=== PATIENT | male | born 1950 | race Caucasian/White ===

== ENCOUNTER 2018-09-05 20:13 | Emergency (ER) | payer MEDICARE, SELFPAY ==
[2018-09-05] VITALS (7 sets, daily range): BP systolic 180–197; BP diastolic 94–124; PULSE 100–109; RESP 14–22; TEMP 37.2; O2SAT 93–958; BMI 32.8
--- NOTE | 2018-09-05 20:17 | EKG12_ITS ---
Test Reason : Blood Pressure : / mmHG Vent. Rate : 103 BPM Atrial Rate : 103 BPM P-R Int : 202 ms QRS Dur : 094 ms QT Int : 348 ms P-R-T Axes : 038 -39 029 degrees QTc Int : 455 ms Sinus tachycardia Possible Left atrial enlargement Left axis deviation Poor R wave progression Left ventricular hypertrophy Abnormal ECG Confirmed by AROLDO BECKWITH, VIKTORIA ([id number]), image editor FLAKO JACKSON ([id number]) on 09/07/2018 1:55:09 PM Referred By: MARIA DE JESUS Confirmed By:VIKTORIA KENDRICK MD
--- NOTE | 2018-09-05 20:17 | CT_ITS ---
STUDY: CT BRAIN WITHOUT CONTRAST REASON FOR EXAM: Male, 68 years old. Right facial droop and weakness RADIATION DOSAGE (If Supplied By Facility): CTDIvol = ( 44.99 ) mGy, DLP = ( 863.60 ) mGycm TECHNIQUE: Transaxial CT imaging of the brain was performed without administration of intravenous contrast material. Individualized dose optimization techniques were used for this CT. COMPARISON: None. FINDINGS: Normal soft tissue structures. Normal calvarium. Calcification of cavernous carotids. Mild atrophy and periventricular white matter ischemic changes.. Small old lacunar infarct in right basal ganglia.. Normal brainstem. Normal cerebellum. There is no intracranial hemorrhage. There are no findings of an acute ischemic infarction. There is minor mucosal thickening of the maxillary ethmoid and sphenoid sinuses CT/Brain/Head without Contrast IMPRESSION: Mild atrophy and periventricular white matter ischemic changes with old right lacunar infarct. No evidence for acute bleed. If concern for acute infarct MRI recommended. N.B. : The above information has been verbally conveyed by Kolton Tellez MD to Andres Garcia MD, on 09/05/2018 20:42:24 (ET). Electronically Signed: Kolton Tellez MD at 20:42 EST , Service support ,
--- NOTE | 2018-09-05 20:22 | ED.VISSUMM ---
- ER Visit Summary Date of Service: 09/05/18 Chief Complaint: Right-sided weakness History of Present Illness: The patient is a 68 M who presents to the emergency department with right-sided weakness. The patient was found by his . He had fallen in his bathroom. He had right-sided weakness, slurred speech, right-sided facial droop. [facility] normal at 1500. The patient has no significant medical history. He takes no daily medications. On squad arrival, his blood pressure was markedly hypertensive at 230/110. He denies any trauma. He has no history of prior stroke. Physical Examination: On arrival, the patient's NIH is 6. He received one-point visual palsy, 3 points for right arm, 1.4 right leg, and one point for dysarthria. He is hypertensive and tachycardic. He answers questions appropriately. He follows commands. There is no visual field deficit. Head is normal cephalic, atraumatic. Heart is regular rate and rhythm. Lungs are clear. Abdomen is soft. Test Results: [] Emergency Department Course and Treatment: The patient presents with strokelike symptoms. Unfortunately, he is outside the window for TPA. I did discuss his presentation with Dr. Ospina. The patient underwent head CT which did not show acute hemorrhagic abnormality. He did have CTA is done of the head and neck. CTA of the neck was unremarkable. CTA of the head however does show significantly diminished blood flow in the left MCA corresponding to his symptoms. After discussion with family, it was felt the patient would best be served at a tertiary facility for evaluation for intra-arterial TPA versus thrombus removal. The patient did request transfer. The patient was discussed with Dr. Carnes, neurology fellow at [facility]. Unfortunately, air transport is not available. The patient will be transferred by ground immediately to [facility] for neurology evaluation. Treatment Plan: [] Disposition: Transfer Impression: 1. Acute left MCA occlusion This note was generated with [employer] dictation software. It may contain incorrect words, spelling, and punctuation that were not noted in review of the chart prior to signing ED Disposition - Plan for ED Patient: Disposition: [facility] - Main Chief Complaint: Neuro S/Sx Referrals: Care Physician,No Primary [Primary Care Provider] -
--- NOTE | 2018-09-05 20:27 | CT_ITS ---
STUDY: CTA OF THE BRAIN REASON FOR EXAM: Male, 68 years old. Right side facial droop and weakness. RADIATION DOSAGE (If Supplied By Facility): CTDIvol = ( 18.48 ) mGy, DLP = ( 860.56 ) mGycm TECHNIQUE: CT angiography was performed with a multi-detector CT scanner. Data acquisition was obtained from the skull base through the vertex following intravenous administration of ml of . MIP images were reconstructed from the axial data set. Post-processing of the angiographic images was performed, with multiplanar reformation and 3D reconstruction. Individualized dose optimization techniques were used for this CT. COMPARISON: None. FINDINGS: Normal bilateral petrous carotid arteries. There is calcified plaque formation of the right cavernous carotid artery, without a cross-sectional luminal stenosis. There is calcified plaque formation of the left cavernous carotid artery, without a cross-sectional luminal stenosis. Normal right A1 segments of the anterior cerebral artery. Normal left A1 segments of the anterior cerebral artery. Normal intact anterior communicating artery (ACOM). Normal bilateral A2 segments of the anterior cerebral arteries. Normal right M1 and M2 segments of the middle cerebral arteries, with a normal M1 bifurcation. Normal M1 segment of the left middle cerebral artery with normal bifurcation. There is a subtle decrease in flow of distal branches of the left middle cerebral artery. There is a persistent origin of the right posterior cerebral artery with absence of the P1 segment of the right [employer]). There is a persistent origin of the left posterior cerebral artery with absence of the P1 segment of the left [employer]). There is a right dominant vertebral artery. Normal basilar artery with a normal basilar bifurcation. The visualized bilateral superior cerebellar (SCA) arteries are normal. P1 segments are absent consistent with bilateral origin of the posterior cerebral arteries. Normal bilateral P2 and visualized P3 segments of the posterior cerebral arteries. There is no demonstrated aneurysm of the picayune of Lilly. CT/CTA Head W/WO Contrast IMPRESSION: Mild decrease in flow in the left MCA circulation without demonstrated stenosis or occlusion. Variant anatomy as noted above. Dr. Dumont discussed the findings with Dr. Garcia at 9:05 PM. N.B. : The above information has been verbally conveyed by Miri Dumont MD to ORION PAIGE MD, on 09/05/2018 21:11:08 (ET). Electronically Signed: Miri Dumont MD at 21:12 EST Tel , Service support ,
--- NOTE | 2018-09-05 20:27 | CT_ITS ---
STUDY: CTA NECK WITH AND WITHOUT CONTRAST REASON FOR EXAM: Male, 68 years old. Right side facial droop and weakness. RADIATION DOSAGE (If Supplied By Facility): CTDIvol = ( 18.48 ) mGy, DLP = ( 860.56 ) mGycm TECHNIQUE: CT angiography with multi-detector data acquisition was performed from the aortic arch to the skull base prior to and after intravenous administration of 100ML ml of Isovue 370 contrast. MIP images were reconstructed from the axial data set. Post-processing of the angiographic images was performed, with multiplanar reformation and 3D reconstruction. Individualized dose optimization techniques were used for this CT. COMPARISON: None. FINDINGS: AORTIC ARCH: Normal visualized aortic arch. Normal origins of the brachiocephalic, left common carotid, and left subclavian arteries. RIGHT CAROTID ARTERIES: Normal right common carotid artery (CCA). There is mild atherosclerotic plaque formation without narrowing of the right carotid bulb. Normal origin of the right internal carotid (ICA) artery without a hemodynamically significant stenosis. Normal visualized cervical portion of the right internal carotid artery. Normal origin of the right external carotid artery (ECA). LEFT CAROTID ARTERIES: Normal left common carotid artery (CCA). There is moderate atherosclerotic plaque formation without narrowing of the carotid bulb. Normal origin of the left internal carotid (ICA) artery without a hemodynamically significant stenosis. Normal visualized cervical portion of the left internal carotid artery. Normal origin of the left external carotid artery (ECA). VERTEBRAL ARTERIES: There is a right dominant vertebral artery. There is no vertebral dissection, stenosis, or occlusion. CT/CTA Neck W/WO Contrast IMPRESSION: No dissection, stenosis, or occlusion. Right dominant vertebral artery, normal variant. N.B. : The above information has been verbally conveyed by Miri Dumont MD to Andres Garcia MD, AA, on 09/05/2018 21:16:58 (ET). Electronically Signed: Miri Dumont MD at 21:15 EST Tel , Service support ,
--- NOTE | 2018-09-05 20:30 | RAD_ITS ---
STUDY: X-RAY CHEST REASON FOR EXAM: Male, 68 years old. Stroke TECHNIQUE: AP portable COMPARISON: None. FINDINGS: The lungs are clear and expanded. There is no demonstrated pleural abnormality. Normal size heart. Normal mediastinum and teresita. Normal visualized pulmonary arteries. Tortuous aortic arch and descending thoracic aorta. Dorsal spine demonstrates spondylosis Normal visualized ribs, clavicles, and shoulders. There is no demonstrated abnormality of the visualized soft tissue structures of the upper abdomen. RAD/Chest 1 View IMPRESSION: No acute cardiopulmonary pathology Electronically Signed: Kolton Tellez MD at 21:07 EST , Service support ,
[2018-09-05 20:37] LABS: Absolute Lymphocyte Count 0.93 X10^3/ul (0.83-4.51); Absolute Neutrophil Count 13.4 X10^3/uL (2.0-7.7); Basophil# 0.03 X10^3/uL; Basophil% 0.2 % (0-1); Eosinophil# 0.01 X10^3/uL; Eosinophils% 0.1 % (0-5); Hematocrit 43.3 % (40-54); Hemoglobin 14.6 g/dl (13.0-16.5); Lymphocyte # 0.93 X10^3/ul (4.0); Lymphocyte % 6.2 % (19-41); Mean Corp Hgb Conc 33.7 g/gl (32-36); Mean Corpuscular Hgb 27.1 pg (27.0-32.0); Mean Corpuscular Volume 80.3 fL (80-94); Monocyte# 0.66 X10^3/uL; Monocyte% 4.4 % (0-10); Neutrophil # 13.43 X10^3/uL (2.7-7.7); Neutrophil % 88.9 % (47-70); Platelet Count 213 K/mm3 (150-450); RBC Distribution Width CV 14.2 % (11.6-14.6); RBC Distribution Width SD 41.9 fl (35.1-43.9); Red Blood Count 5.39 M/mm3 (4.6-6.2); White Blood Count 15.1 K/mm3 (4.4-11.0)
[2018-09-05 20:38] LABS: POSITIVE COUNT NO; POSITIVE DIFFERENTIAL NO; POSITIVE MORPHOLOGY NO
[2018-09-05 20:39] LABS: Prothrombin Time (Protime)PT. 13.6 SECONDS (11.7-14.9)
[2018-09-05 20:49] LABS: Anion Gap 11 (5-15); BUN 15 mg/dL (7-18); BUN/Creat Ratio 18.7 RATIO (10-20); Calcium,Total 8.9 mg/dL (8.5-10.1); Chloride 106 mmol/L (98-107); EST Glomerular Filtration Rate 101 mL/min (>60); Est Glom Filt Rate - Afr Amer 123 mL/min (>60); Estimated Creatinine Clearance 89.98 ml/min; Glucose 283 mg/dL (74-106); Potassium 3.8 mmol/L (3.5-5.1); Sodium Level 139 mmol/L (136-145)
[2018-09-07 07:16] LABS: Bedside Glucose 268 mg/dL (70-110)
== END 2018-09-05 21:46 | disposition short-term general hospital (02) ==
PROVIDERS: Emergency Provider Emergency Medicine
DX: I66.02 Occlusion and stenosis of left middle cerebral artery (principal); Z72.0 Tobacco use
CPT/HCPCS: 70450; 70496; 70498; 71045; 80048; 82962; 84484; 85025; 85610; 85730; 93005; 99285; J7030; A4216

== ENCOUNTER 2018-09-08 15:56 | Inpatient (IN) | payer MEDICARE, SELFPAY ==
[2018-09-05 20:23] VITALS: BMI 32.8
[2018-09-08 16:39] VITALS: BP 154/90; PULSE 80; RESP 16; TEMP 36.9; O2SAT 91; BMI 32.1
[2018-09-08 18:11] LABS: Bedside Glucose 194 mg/dL (70-110)
--- NOTE | 2018-09-08 18:53 | PCM.CONS.GEN ---
Problem List (1) Left acute arterial ischemic stroke, MCA (middle cerebral artery) Status: Chronic (2) HTN (hypertension) Status: Chronic Qualifiers: Hypertension type: essential hypertension Qualified Code(s): I10 - Essential (primary) hypertension (3) HLD (hyperlipidemia) Status: Chronic Qualifiers: Hyperlipidemia type: unspecified Qualified Code(s): E78.5 - Hyperlipidemia, unspecified (4) Diabetes mellitus, type II Status: Acute Qualifiers: Diabetes mellitus manuscripts curator insulin use: without manuscripts curator use Diabetes mellitus complication status: with unspecified complications Qualified Code(s): E11.8 - Type 2 diabetes mellitus with unspecified complications (5) Obesity (BMI 30.0-34.9) Status: Chronic Reason for Consult Date of Consultation: 09/08/18 Reason for Consultation: Medical management History of Present Illness: The patient is a 68 y/o M w/ PMHx: Obesity, Undiagnosed HTN, HLD, Diabetes mellitus until 09/05/17 onset right sided weakness with associated slurred speech, right sided facial droop in addition to right upper and lower extremity decreased sensation noted to be outside of the TPA window upon ED arrival however CTA head w/ MIP acutely diminished blood flow to the left MCA corresponding to his symptoms therefore patient was transferred to a tertiary facility for evaluation for intra-arterial TPA versus thrombus removal however decision was to continue with only medical management and patient now presents to the [facility] for ongoing PT, OT, Speech Therapies. He does note that his sensation and right-sided weakness have been improving. He does have a hoarse voice and notes that this is worse when he is fatigued. At out lying facility, [facility] he was taking a regular diet. Patient was initiated on treatment for hypertension, hyperlipidemia as well as diabetes with noted hemoglobin A1c of 8.4%. Past Medical History Past Medical History (Chronic Problems): Chronic Problems Left acute arterial ischemic stroke, MCA (middle cerebral artery) (Chronic) HTN (hypertension) (Chronic) HLD (hyperlipidemia) (Chronic) Obesity (BMI 30.0-34.9) (Chronic) Allergies hornet venom Allergy (Verified 09/08/18 18:16) Unknown Home Medications: Ambulatory Orders Medication Instructions Recorded Acetaminophen [Tylenol] 650 mg PO Q8H PRN PRN 09/08/18 Aspirin [Aspir 81] 81 mg PO DAILY 09/08/18 Atorvastatin Calcium 80 mg PO QHS 09/08/18 Clopidogrel Bisulfate [Plavix] 75 mg PO DAILY 09/08/18 Enoxaparin Sodium [Lovenox] 40 mg SQ DAILY 09/08/18 Insulin Lispro [Humalog KwikPen] See Protocol SQ ACHS 09/08/18 Lisinopril 20 mg PO DAILY 09/08/18 Metformin HCl 500 mg PO BID 09/08/18 Multivitamin with Minerals 1 each PO DAILY 09/08/18 [Multiple Vitamin] Surgical History: - - Patient denies any surgical history. Psychiatric History: No pertinent psych hx Lives: Spouse/ Significant Other Smoking Status: Never smoker Tobacco Use: Non-smoker Alcohol: None Drugs: None - *Family History Maternal History Items: - - Patient's mother at age 76 with history of cancer. Paternal History Items: - - Patient's father at age 66 with myocardial infarction, current history of diabetes mellitus. Review of Systems Constitutional: Reports: Malaise, Weakness, Fatigue. Denies: Chills, Fever, Weight Change HEENT: Denies: Head Aches, Sinus Congestion, Sinus Drainage Cardiovascular: Denies: Chest Pain, Palpitations Respiratory: Denies: Cough, Shortness of breath at rest, Sputum production Gastrointestinal: Denies: Abdominal Pain, Nausea, Vomiting Genitourinary: Denies: Dysuria Musculoskeletal: Denies: Joint Pain, Joint Tenderness Skin: Denies: Rash, Wounds Neurological: Reports: Balance problems, Change in Speech, Slurred speech, Focal weakness, Incoordination, Numbness. Denies: Tingling Psychiatric: Denies: Anxiety, Depression, Homicidal Ideations, Suicidal Ideations Hematologic/ Lymphatic: Denies: Easy Bruising, Easy Bleeding Patient Problems: Active and Suspected Problems Diabetes mellitus, type II (Acute) Subjective: Seated upright in the bed, eating his meal, no acute distress. Objective: Physical Examination: General: awake, alert, oriented x 3 and cooperative, seated upright in bed in no apparent distress. Skin: normal color, turgor, no icterus, cyanosis. HEENT: AT/NC, EOMI, PERRLA, minimal right sided facial droop, MMM, no carotid bruits or JVD noted, voice mildly hoarse. Lungs: CTA bilaterally, moderate effort, mild decrease BL bases, no rales, ronchi or wheezing. Heart: Regular rate and rhythm; no gallop, rub audible. Abdomen: soft, obese, NTTP, ND, normal BS, no HSM. Extremities: no cyanosis, clubbing, or edema. Neurological: patient awake, alert, oriented x 3; cognitive function intact; pupils equally reactive to light and accomodation; cranial nerves II-XII grossly normal aside mild R sided facial droop, corrective, hoarse voice, moving all 4 extremities but limited RUE 2/5, RLE 3/5, intact L sided, sensation decreased R sided. Psychiatric: affect appears normal, no acute evidence of depressive or anxiety feelings. - Physical Exam Vital Signs Temp Pulse Resp BP Pulse Ox 98.5 F 80 16 154/90 H 91 09/08/18 16:39 09/08/18 16:39 09/08/18 16:39 09/08/18 16:39 09/08/18 16:39 Oxygen Delivery Method Room Air Weight: 223 lb 12.307 oz Body Mass Index (BMI) 32.1 Finger Stick Blood Glucose 268 POC Glucose 09/08/18 18:04 POC Glucose 194 H Assessment/Plan All Active Problems Diabetes mellitus, type II (Acute) The patient is a 68 y/o M w/ PMHx: Obesity, Undiagnosed HTN, HLD, Diabetes mellitus until 09/05/17 onset right sided weakness with associated slurred speech, right sided facial droop in addition to right upper and lower extremity decreased sensation noted to be outside of the TPA window upon ED arrival however CTA head w/ MIP acutely diminished blood flow to the left MCA corresponding to his symptoms therefore patient was transferred to a tertiary facility for evaluation for intra-arterial TPA versus thrombus removal however decision was to continue with only medical management and patient now presents to the [facility] for ongoing PT, OT, Speech Therapies. (1) Recent Acute L MCA CVA: 09/05/17 onset R sided weakness, decreased sensation, facial droop, out of TPA window, CTA neck unremarkable, CTA head w/ minimal flow to the left MCA corresponding with the symptoms therefore transferred to tertiary facility, [facility] for possible intervention however this was deferred for medical management. Admitted to acute rehab debilitation physician, continue on aspirin, Plavix dual therapy for at least 21 days, BP regimen, new diabetic regimen, fall precautions, PT, OT and speech therapies. (2) Diabetes mellitus type II: Continue new home oral regimen, recence HgbA1c 8.4%, ADA diet, accu checks w/ ISS, nutrition consultation for education and teaching recommended. (3) Hypertension: Continue recently initiated lisinopril, may add or increase this regimen to maintain a goal. (4) Hyperlipidemia: Continue recently initiated statin therapy. (5) Obesity: Weight loss and lifestyle changes encouraged. (6) DVT Prophylaxis: Recommend sadaf SEBASTIAN. Code Visit Inpatient E&M: [id number] [facility] L[facility]
--- NOTE | 2018-09-08 18:57 | CON.PCM_ITS ---
Problem List (1) Left acute arterial ischemic stroke, MCA (middle cerebral artery) Status: Chronic (2) HTN (hypertension) Status: Chronic Qualifiers: Hypertension type: essential hypertension Qualified Code(s): I10 - Essential (primary) hypertension (3) HLD (hyperlipidemia) Status: Chronic Qualifiers: Hyperlipidemia type: unspecified Qualified Code(s): E78.5 - Hyperlipidemia, unspecified (4) Diabetes mellitus, type II Status: Acute Qualifiers: Diabetes mellitus intermediate project manager insulin use: without intermediate project manager use Diabetes mellitus complication status: with unspecified complications Qualified Code(s): E11.8 - Type 2 diabetes mellitus with unspecified complications (5) Obesity (BMI 30.0-34.9) Status: Chronic Reason for Consult Date of Consultation: 09/08/18 Reason for Consultation: Medical management History of Present Illness: The patient is a 68 y/o M w/ PMHx: Obesity, Undiagnosed HTN, HLD, Diabetes mellitus until 09/05/17 onset right sided weakness with associated slurred speech, right sided facial droop in addition to right upper and lower extremity decreased sensation noted to be outside of the TPA window upon ED arrival however CTA head w/ MIP acutely diminished blood flow to the left MCA corresponding to his symptoms therefore patient was transferred to a tertiary facility for evaluation for intra-arterial TPA versus thrombus removal however decision was to continue with only medical management and patient now presents to the [facility] for ongoing PT, OT, Speech Therapies. He does note that his sensation and right-sided weakness have been improving. He does have a hoarse voice and notes that this is worse when he is fatigued. At out lying facility, [facility] he was taking a regular diet. Patient was initiated on treatment for hypertension, hyperlipidemia as well as diabetes with noted hemoglobin A1c of 8.4%. Past Medical History Past Medical History (Chronic Problems): Chronic Problems Left acute arterial ischemic stroke, MCA (middle cerebral artery) (Chronic) HTN (hypertension) (Chronic) HLD (hyperlipidemia) (Chronic) Obesity (BMI 30.0-34.9) (Chronic) Allergies hornet venom Allergy (Verified 09/08/18 18:16) Unknown Home Medications: Ambulatory Orders Medication Instructions Recorded Acetaminophen [Tylenol] 650 mg PO Q8H PRN PRN 09/08/18 Aspirin [Aspir 81] 81 mg PO DAILY 09/08/18 Atorvastatin Calcium 80 mg PO QHS 09/08/18 Clopidogrel Bisulfate [Plavix] 75 mg PO DAILY 09/08/18 Enoxaparin Sodium [Lovenox] 40 mg SQ DAILY 09/08/18 Insulin Lispro [Humalog KwikPen] See Protocol SQ ACHS 09/08/18 Lisinopril 20 mg PO DAILY 09/08/18 Metformin HCl 500 mg PO BID 09/08/18 Multivitamin with Minerals 1 each PO DAILY 09/08/18 [Multiple Vitamin] Surgical History: - - Patient denies any surgical history. Psychiatric History: No pertinent psych hx Lives: Spouse/ Significant Other Smoking Status: Never smoker Tobacco Use: Non-smoker Alcohol: None Drugs: None - *Family History Maternal History Items: - - Patient's mother at age 76 with history of cancer. Paternal History Items: - - Patient's father at age 66 with myocardial infarction, current history of diabetes mellitus. Review of Systems Constitutional: Reports: Malaise, Weakness, Fatigue. Denies: Chills, Fever, Weight Change HEENT: Denies: Head Aches, Sinus Congestion, Sinus Drainage Cardiovascular: Denies: Chest Pain, Palpitations Respiratory: Denies: Cough, Shortness of breath at rest, Sputum production Gastrointestinal: Denies: Abdominal Pain, Nausea, Vomiting Genitourinary: Denies: Dysuria Musculoskeletal: Denies: Joint Pain, Joint Tenderness Skin: Denies: Rash, Wounds Neurological: Reports: Balance problems, Change in Speech, Slurred speech, Focal weakness, Incoordination, Numbness. Denies: Tingling Psychiatric: Denies: Anxiety, Depression, Homicidal Ideations, Suicidal Ideations Hematologic/ Lymphatic: Denies: Easy Bruising, Easy Bleeding Patient Problems: Active and Suspected Problems Diabetes mellitus, type II (Acute) Subjective: Seated upright in the bed, eating his meal, no acute distress. Objective: Physical Examination: General: awake, alert, oriented x 3 and cooperative, seated upright in bed in no apparent distress. Skin: normal color, turgor, no icterus, cyanosis. HEENT: AT/NC, EOMI, PERRLA, minimal right sided facial droop, MMM, no carotid bruits or JVD noted, voice mildly hoarse. Lungs: CTA bilaterally, moderate effort, mild decrease BL bases, no rales, ronchi or wheezing. Heart: Regular rate and rhythm; no gallop, rub audible. Abdomen: soft, obese, NTTP, ND, normal BS, no HSM. Extremities: no cyanosis, clubbing, or edema. Neurological: patient awake, alert, oriented x 3; cognitive function intact; pupils equally reactive to light and accomodation; cranial nerves II-XII grossly normal aside mild R sided facial droop, corrective, hoarse voice, moving all 4 extremities but limited RUE 2/5, RLE 3/5, intact L sided, sensation decreased R sided. Psychiatric: affect appears normal, no acute evidence of depressive or anxiety feelings. - Physical Exam Vital Signs Temp Pulse Resp BP Pulse Ox 98.5 F 80 16 154/90 H 91 09/08/18 16:39 09/08/18 16:39 09/08/18 16:39 09/08/18 16:39 09/08/18 16:39 Oxygen Delivery Method Room Air Weight: 223 lb 12.307 oz Body Mass Index (BMI) 32.1 Finger Stick Blood Glucose 268 POC Glucose 09/08/18 18:04 POC Glucose 194 H Assessment/Plan All Active Problems Diabetes mellitus, type II (Acute) The patient is a 68 y/o M w/ PMHx: Obesity, Undiagnosed HTN, HLD, Diabetes mellitus until 09/05/17 onset right sided weakness with associated slurred speech, right sided facial droop in addition to right upper and lower extremity decreased sensation noted to be outside of the TPA window upon ED arrival however CTA head w/ MIP acutely diminished blood flow to the left MCA corresponding to his symptoms therefore patient was transferred to a tertiary facility for evaluation for intra-arterial TPA versus thrombus removal however decision was to continue with only medical management and patient now presents to the [facility] for ongoing PT, OT, Speech Therapies. (1) Recent Acute L MCA CVA: 09/05/17 onset R sided weakness, decreased sensation, facial droop, out of TPA window, CTA neck unremarkable, CTA head w/ minimal flow to the left MCA corresponding with the symptoms therefore transferred to tertiary facility, [facility] for possible intervention however this was deferred for medical management. Admitted to acute rehab debilitation physician, continue on aspirin, Plavix dual therapy for at least 21 days, BP regimen, new diabetic regimen, fall precautions, PT, OT and speech therapies. (2) Diabetes mellitus type II: Continue new home oral regimen, recence HgbA1c 8.4%, ADA diet, accu checks w/ ISS, nutrition consultation for education and teaching recommended. (3) Hypertension: Continue recently initiated lisinopril, may add or increase this regimen to maintain a goal. (4) Hyperlipidemia: Continue recently initiated statin therapy. (5) Obesity: Weight loss and lifestyle changes encouraged. (6) DVT Prophylaxis: Recommend sadaf SEBASTIAN. Code Visit Inpatient E&M: [id number] [facility] L3
[2018-09-08 20:33] VITALS: BP 130/73; PULSE 92; RESP 18; TEMP 36.8; O2SAT 92
--- NOTE | 2018-09-08 20:38 | NURSING ---
O2 applied at 2L for hs. Sats 90-92% sitting in chair. With O2 sats now 94%
[2018-09-08] MEDS: Atorvastatin Calcium 80 MG Tablet PO (22:01)
[2018-09-08] MEDS: Senna/Docusate Sodium 1 Tablet 2 TABLET PO (22:01)
[2018-09-08] MEDS: Insulin Lispro 100 UNIT/ML INSULN.PEN SC (23:14)
[2018-09-08 23:31] LABS: Bedside Glucose 220 mg/dL (70-110)
[2018-09-08 23:52] VITALS: BMI 32.1
[2018-09-09 01:02] VITALS: BMI 32.1
[2018-09-09] MEDS: Enoxaparin 40 MG/0.4 ML Syringe SC (06:27)
[2018-09-09 07:10] LABS: Bedside Glucose 167 mg/dL (70-110)
[2018-09-09 07:45] VITALS: BP 150/80; PULSE 79; RESP 18; TEMP 36.7; O2SAT 94
[2018-09-09 07:50] LABS: Absolute Lymphocyte Count 1.68 X10^3/ul (0.83-4.51); Absolute Neutrophil Count 5.1 X10^3/uL (2.0-7.7); Basophil# 0.02 X10^3/uL; Basophil% 0.2 % (0-1); Eosinophil# 0.35 X10^3/uL; Eosinophils% 4.3 % (0-5); Hematocrit 43.6 % (40-54); Hemoglobin 14.3 g/dl (13.0-16.5); Lymphocyte # 1.68 X10^3/ul (4.0); Lymphocyte % 20.9 % (19-41); Mean Corp Hgb Conc 32.8 g/gl (32-36); Mean Corpuscular Hgb 26.8 pg (27.0-32.0); Mean Corpuscular Volume 81.6 fL (80-94); Mean Platelet Vol. 9.6 fl (6.2-12.0); Monocyte# 0.94 X10^3/uL; Monocyte% 11.7 % (0-10); Neutrophil # 5.05 X10^3/uL (2.7-7.7); Neutrophil % 62.8 % (47-70); POSITIVE COUNT NO; POSITIVE DIFFERENTIAL NO; POSITIVE MORPHOLOGY NO; Platelet Count 219 K/mm3 (150-450); RBC Distribution Width CV 14.3 % (11.6-14.6); RBC Distribution Width SD 42.6 fl (35.1-43.9); Red Blood Count 5.34 M/mm3 (4.6-6.2); White Blood Count 8.1 K/mm3 (4.4-11.0)
[2018-09-09 08:01] LABS: ALB/GLOB Ratio 0.7 RATIO (0.9-2.4); AST(SGOT) 20 U/L (15-37); Alanine Aminotransfer ALT/SGPT 24 U/L (16-61); Alkaline Phosphatase 72 U/L (45-117); Anion Gap 10 (5-15); BUN 21 mg/dL (7-18); BUN/Creat Ratio 31.8 RATIO (10-20); Calcium,Total 8.5 mg/dL (8.5-10.1); Chloride 106 mmol/L (98-107); Creatinine, Serum 0.66 mg/dL (0.70-1.30); EST Glomerular Filtration Rate 127 mL/min (>60); Est Glom Filt Rate - Afr Amer 154 mL/min (>60); Estimated Creatinine Clearance 71.99 ml/min; Globulin 4.3 g/dL (2.2-4.2); Glucose 172 mg/dL (74-106); Potassium 3.6 mmol/L (3.5-5.1); Protein, Total 7.3 g/dL (6.4-8.2); Sodium Level 141 mmol/L (136-145)
--- NOTE | 2018-09-09 08:31 | CPS ---
started by nursing
[2018-09-09] MEDS: Lisinopril 20 MG Tablet PO (09:21)
[2018-09-09] MEDS: Insulin Lispro 100 UNIT/ML INSULN.PEN SC ×4 (09:21→23:02)
[2018-09-09] MEDS: Multivitamins,Ther W-Minerals Tablet 1 TABLET PO (09:22)
[2018-09-09] MEDS: Senna/Docusate Sodium 1 Tablet 2 TABLET PO (09:22)
[2018-09-09] MEDS: Clopidogrel Bisulfate 75 MG Tablet PO (09:22)
[2018-09-09] MEDS: Aspirin E.C. 81 MG Tablet PO (09:22)
[2018-09-09 11:36] LABS: Bedside Glucose 230 mg/dL (70-110)
[2018-09-09 15:57] VITALS: BMI 32.1
[2018-09-09 17:30] LABS: Bedside Glucose 211 mg/dL (70-110)
[2018-09-09 20:46] VITALS: BP 145/78; PULSE 84; RESP 16; TEMP 36.3; O2SAT 97
[2018-09-09 21:21] LABS: Bedside Glucose 240 mg/dL (70-110)
[2018-09-09] MEDS: Atorvastatin Calcium 80 MG Tablet PO (23:02)
[2018-09-09] MEDS: Menthol/Lanolin/Calamine/Znox 113 GM Tube 1 APPLIC TOPICAL (23:03)
[2018-09-09 23:06] LABS: Bedside Glucose 214 mg/dL (70-110)
[2018-09-10 01:33] VITALS: BMI 32.1
[2018-09-10] MEDS: Enoxaparin 40 MG/0.4 ML Syringe SC (06:21)
[2018-09-10 06:34] VITALS: O2SAT 96
[2018-09-10 07:06] LABS: Bedside Glucose 168 mg/dL (70-110)
[2018-09-10 07:23] VITALS: BP 138/76; PULSE 79; RESP 18; TEMP 36.8; O2SAT 96
[2018-09-10] MEDS: Insulin Lispro 100 UNIT/ML INSULN.PEN SC ×3 (09:44→20:02)
[2018-09-10] MEDS: Clopidogrel Bisulfate 75 MG Tablet PO (09:45)
[2018-09-10] MEDS: Aspirin E.C. 81 MG Tablet PO (09:45)
[2018-09-10] MEDS: Multivitamins,Ther W-Minerals Tablet 1 TABLET PO (09:45)
[2018-09-10] MEDS: Lisinopril 20 MG Tablet PO (09:46)
[2018-09-10] MEDS: Menthol/Lanolin/Calamine/Znox 113 GM Tube 1 APPLIC TOPICAL ×2 (09:47→20:17)
--- NOTE | 2018-09-10 11:51 | PCM.HP.STD ---
History of Present Illness Date of Admission: 09/08/18 Chief Complaint: Right-sided weakness Mr. Sepulveda is a 68-year-old right-handed male with a history of hypertension, diabetes, hypercholesterolemia, who presented to [facility] on 09/05/18 with new right-sided weakness associated with dysarthria. He did not receive TPA due to time of onset, he was transferred to the [facility] because of a possible right MCA thrombus, however no intervention occurred other than supportive therapy. He is now transferred back to [facility] acute rehab unit for rehabilitation in order to restore his previous level of functional independence. He lives with his in a 1-1/2 story house. He says there is significant steps there. He is not a smoker, he does have new hypersomnia since his stroke, he does not have a history of snoring or hypersomnia previously. No other complaints. No GI or complaints. Denies pain. Past Medical History Past Medical History (Chronic Problems): Chronic Problems Left acute arterial ischemic stroke, MCA (middle cerebral artery) (Chronic) HTN (hypertension) (Chronic) HLD (hyperlipidemia) (Chronic) Obesity (BMI 30.0-34.9) (Chronic) Allergies hornet venom Allergy (Verified 09/08/18 18:16) Unknown Home Medications: Ambulatory Orders Medication Instructions Recorded Acetaminophen [Tylenol] 650 mg PO Q8H PRN PRN 09/08/18 Aspirin [Aspir 81] 81 mg PO DAILY 09/08/18 Atorvastatin Calcium 80 mg PO QHS 09/08/18 Clopidogrel Bisulfate [Plavix] 75 mg PO DAILY 09/08/18 Enoxaparin Sodium [Lovenox] 40 mg SQ DAILY 09/08/18 Insulin Lispro [Humalog KwikPen] See Protocol SQ ACHS 09/08/18 Lisinopril 20 mg PO DAILY 09/08/18 Metformin HCl 500 mg PO BID 09/08/18 Multivitamin with Minerals 1 each PO DAILY 09/08/18 [Multiple Vitamin] Surgical History: - - Patient denies any surgical history. Psychiatric History: No pertinent psych hx Lives: Spouse/ Significant Other Smoking Status: Never smoker Tobacco Use: Non-smoker Alcohol: None Drugs: None - *Family History Maternal History Items: - - Patient's mother at age 76 with history of cancer. Paternal History Items: - - Patient's father at age 66 with myocardial infarction, current history of diabetes mellitus. Review of Systems Constitutional: Denies: Anorexia, Chills, Fever, Night Sweats Eyes: Denies: Blurred vision, Double vision HEENT: Denies: Difficulty Hearing, Difficulty Swallowing Cardiovascular: Denies: Chest Pain Respiratory: Denies: Cough Gastrointestinal: Denies: Abdominal Pain Genitourinary: Denies: Dysuria, Frequency, Hematuria, Hesitancy Musculoskeletal: Denies: Arm Pain, Back Pain, Foot Pain, Hand Pain, Joint Pain Skin: Denies: Rash, Wounds Neurological: Reports: Change in Speech, Slurred speech, Focal weakness Psychiatric: Denies: Anxiety, Depression, Homicidal Ideations, Suicidal Ideations Endocrine: Denies: Change in Body Habitus Hematologic/ Lymphatic: Denies: Easy Bruising, Easy Bleeding VTE Information - Inpt Only VTE Present on Admission: Yes VTE Pharm Prophylaxis ordered?: Yes Patient Problems: Active and Suspected Problems Diabetes mellitus, type II (Acute) - Physical Exam General: Alert, Oriented x3, Cooperative, No apparent distress Lungs: Clear to auscultation Cardiovascular: Regular rate Abdomen: Bowel Sounds Present Extremities: No Calf Tenderness Neurological: - - He has dysarthria, a right central 7, right arm and right leg is 2/5. There is no sensory extinction. There does not appear to be any aphasia. There are no visual field deficits. Vital Signs Temp Pulse Resp BP Pulse Ox 36.8 C 79 18 138/76 H 96 09/10/18 07:23 09/10/18 07:23 09/10/18 07:23 09/10/18 07:23 09/10/18 07:23 Oxygen Flow Rate (L/min) 3 Oxygen Delivery Method Room Air Weight: 101.5 kg Body Mass Index (BMI) 32.1 Finger Stick Blood Glucose 268 Intake and Output for Last 24 Hours 09/08/18 09/09/18 09/10/18 23:59 23:59 23:59 Intake Total 1130 / 1130 120 / 120 Balance 1130 / 1130 120 / 120 POC Glucose 09/10/18 09/09/18 09/09/18 06:34 23:00 21:10 POC Glucose 168 H 214 H 240 H 09/09/18 17:16 POC Glucose 211 H Current Medications Generic Name Dose Route Start Last Admin Trade Name Freq PRN Reason Stop Dose Admin Acetaminophen 650 mg 09/08/18 18:27 Tylenol PO Q8H PRN PRN PAIN Aspirin 81 mg 09/09/18 08:00 09/10/18 09:45 Ecotrin PO 81 mg DAILY@0800 [facility] Administration Atorvastatin Calcium 80 mg 09/08/18 22:00 09/09/18 23:02 Lipitor PO 80 mg QHS HOWIE Administration Bisacodyl 10 mg 09/08/18 18:34 Dulcolax RECTAL .PRN X 1 PRN Constipation Calamine/Phenol 1 applic 09/09/18 22:00 09/10/18 09:47 Calmoseptine Ointment TOPICAL 1 applicatio BID [facility] Administration Protocol Clopidogrel Bisulfate 75 mg 09/09/18 10:00 09/10/18 09:45 Plavix PO 09/27/18 10:01 75 mg DAILY HOWIE Administration Enoxaparin Sodium 40 mg 09/09/18 06:00 09/10/18 06:21 Lovenox SC 40 mg DAILY@0600 [facility] Administration Insulin Human Lispro 0 unit 09/08/18 22:00 09/10/18 09:44 Humalog Kwikpen (Bkc) SC 1 u ACHS [facility] Administration Protocol Lisinopril 20 mg 09/09/18 10:00 09/10/18 09:46 Zestril PO 20 mg DAILY HOWIE Administration Magnesium Hydroxide 30 ml 09/08/18 18:34 Milk Of Magnesia PO .PRN X 1 PRN Constipation Metformin HCl 500 mg 09/09/18 08:00 09/10/18 09:45 Glucophage PO 500 mg BIDCM [facility] Administration Multivitamins/Minerals 1 tablet 09/09/18 08:00 09/10/18 09:45 Multivitamin With Minerals PO 1 tablet DAILY@0800 [facility] Administration Senna/Docusate Sodium 2 tablet 09/08/18 22:00 09/10/18 09:46 Senokot-S, Joy-Colace PO Not Given BID [facility] Assessment/Plan All Active Problems Diabetes mellitus, type II (Acute) 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 Goal of rehab is gnosticism of prior level of functional independence. Complicated by diabetes and hypertension. He has new hypersomnia but previous to his stroke he did not have hypersomnia. Plan: Physical therapy for gait and balance Occupational Therapy for ADLs Speech therapy Bowel protocol PRN analgesics PRN sleep aid Continue anti-glycemic agents and follow Continue antihypertensives and follow Statin therapy, Plavix, and aspirin
--- NOTE | 2018-09-10 11:55 | HP.PCM_ITS ---
History of Present Illness Date of Admission: 09/08/18 Chief Complaint: Right-sided weakness Mr. Sepulveda is a 68-year-old right-handed male with a history of hypertension, diabetes, hypercholesterolemia, who presented to [facility] on 09/05/18 with new right-sided weakness associated with dysarthria. He did not receive TPA due to time of onset, he was transferred to the [facility] because of a possible right MCA thrombus, however no intervention occurred other than supportive therapy. He is now transferred back to [facility] acute rehab unit for rehabilitation in order to restore his previous level of functional independence. He lives with his in a 1-1/2 story house. He says there is significant steps there. He is not a smoker, he does have new hypersomnia since his stroke, he does not have a history of snoring or hypersomnia previously. No other complaints. No GI or complaints. Denies pain. Past Medical History Past Medical History (Chronic Problems): Chronic Problems Left acute arterial ischemic stroke, MCA (middle cerebral artery) (Chronic) HTN (hypertension) (Chronic) HLD (hyperlipidemia) (Chronic) Obesity (BMI 30.0-34.9) (Chronic) Allergies hornet venom Allergy (Verified 09/08/18 18:16) Unknown Home Medications: Ambulatory Orders Medication Instructions Recorded Acetaminophen [Tylenol] 650 mg PO Q8H PRN PRN 09/08/18 Aspirin [Aspir 81] 81 mg PO DAILY 09/08/18 Atorvastatin Calcium 80 mg PO QHS 09/08/18 Clopidogrel Bisulfate [Plavix] 75 mg PO DAILY 09/08/18 Enoxaparin Sodium [Lovenox] 40 mg SQ DAILY 09/08/18 Insulin Lispro [Humalog KwikPen] See Protocol SQ ACHS 09/08/18 Lisinopril 20 mg PO DAILY 09/08/18 Metformin HCl 500 mg PO BID 09/08/18 Multivitamin with Minerals 1 each PO DAILY 09/08/18 [Multiple Vitamin] Surgical History: - - Patient denies any surgical history. Psychiatric History: No pertinent psych hx Lives: Spouse/ Significant Other Smoking Status: Never smoker Tobacco Use: Non-smoker Alcohol: None Drugs: None - *Family History Maternal History Items: - - Patient's mother at age 76 with history of cancer. Paternal History Items: - - Patient's father at age 66 with myocardial infarction, current history of diabetes mellitus. Review of Systems Constitutional: Denies: Anorexia, Chills, Fever, Night Sweats Eyes: Denies: Blurred vision, Double vision HEENT: Denies: Difficulty Hearing, Difficulty Swallowing Cardiovascular: Denies: Chest Pain Respiratory: Denies: Cough Gastrointestinal: Denies: Abdominal Pain Genitourinary: Denies: Dysuria, Frequency, Hematuria, Hesitancy Musculoskeletal: Denies: Arm Pain, Back Pain, Foot Pain, Hand Pain, Joint Pain Skin: Denies: Rash, Wounds Neurological: Reports: Change in Speech, Slurred speech, Focal weakness Psychiatric: Denies: Anxiety, Depression, Homicidal Ideations, Suicidal Ideations Endocrine: Denies: Change in Body Habitus Hematologic/ Lymphatic: Denies: Easy Bruising, Easy Bleeding VTE Information - Inpt Only VTE Present on Admission: Yes VTE Pharm Prophylaxis ordered?: Yes Patient Problems: Active and Suspected Problems Diabetes mellitus, type II (Acute) - Physical Exam General: Alert, Oriented x3, Cooperative, No apparent distress Lungs: Clear to auscultation Cardiovascular: Regular rate Abdomen: Bowel Sounds Present Extremities: No Calf Tenderness Neurological: - - He has dysarthria, a right central 7, right arm and right leg is 2/5. There is no sensory extinction. There does not appear to be any aphasia. There are no visual field deficits. Vital Signs Temp Pulse Resp BP Pulse Ox 36.8 C 79 18 138/76 H 96 09/10/18 07:23 09/10/18 07:23 09/10/18 07:23 09/10/18 07:23 09/10/18 07:23 Oxygen Flow Rate (L/min) 3 Oxygen Delivery Method Room Air Weight: 101.5 kg Body Mass Index (BMI) 32.1 Finger Stick Blood Glucose 268 Intake and Output for Last 24 Hours 09/08/18 09/09/18 09/10/18 23:59 23:59 23:59 Intake Total 1130 / 1130 120 / 120 Balance 1130 / 1130 120 / 120 POC Glucose 09/10/18 09/09/18 09/09/18 06:34 23:00 21:10 POC Glucose 168 H 214 H 240 H 09/09/18 17:16 POC Glucose 211 H Current Medications Generic Name Dose Route Start Last Admin Trade Name Freq PRN Reason Stop Dose Admin Acetaminophen 650 mg 09/08/18 18:27 Tylenol PO Q8H PRN PRN PAIN Aspirin 81 mg 09/09/18 08:00 09/10/18 09:45 Ecotrin PO 81 mg DAILY@0800 [facility] Administration Atorvastatin Calcium 80 mg 09/08/18 22:00 09/09/18 23:02 Lipitor PO 80 mg QHS HOWIE Administration Bisacodyl 10 mg 09/08/18 18:34 Dulcolax RECTAL .PRN X 1 PRN Constipation Calamine/Phenol 1 applic 09/09/18 22:00 09/10/18 09:47 Calmoseptine Ointment TOPICAL 1 applicatio BID [facility] Administration Protocol Clopidogrel Bisulfate 75 mg 09/09/18 10:00 09/10/18 09:45 Plavix PO 09/27/18 10:01 75 mg DAILY HOWIE Administration Enoxaparin Sodium 40 mg 09/09/18 06:00 09/10/18 06:21 Lovenox SC 40 mg DAILY@0600 [facility] Administration Insulin Human Lispro 0 unit 09/08/18 22:00 09/10/18 09:44 Humalog Kwikpen (Bkc) SC 1 u ACHS [facility] Administration Protocol Lisinopril 20 mg 09/09/18 10:00 09/10/18 09:46 Zestril PO 20 mg DAILY HOWIE Administration Magnesium Hydroxide 30 ml 09/08/18 18:34 Milk Of Magnesia PO .PRN X 1 PRN Constipation Metformin HCl 500 mg 09/09/18 08:00 09/10/18 09:45 Glucophage PO 500 mg BIDCM [facility] Administration Multivitamins/Minerals 1 tablet 09/09/18 08:00 09/10/18 09:45 Multivitamin With Minerals PO 1 tablet DAILY@0800 [facility] Administration Senna/Docusate Sodium 2 tablet 09/08/18 22:00 09/10/18 09:46 Senokot-S, Joy-Colace PO Not Given BID [facility] Assessment/Plan All Active Problems Diabetes mellitus, type II (Acute) 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 Goal of rehab is temple of prior level of functional independence. Complicated by diabetes and hypertension. He has new hypersomnia but previous to his stroke he did not have hypersomnia. Plan: Physical therapy for gait and balance Occupational Therapy for ADLs Speech therapy Bowel protocol PRN analgesics PRN sleep aid Continue anti-glycemic agents and follow Continue antihypertensives and follow Statin therapy, Plavix, and aspirin
--- NOTE | 2018-09-10 11:57 | REHABEVAL_ITS ---
Admission Information Status Changes from Prescreening?: No changes Identified Actual Problem List:: Cognitve Impr/Memory Loss, Alteration in Nutrition, Mobility Impaired, Self Care Deficit, Diabetes, Hyperglycemia, BP, Hypertension, Ineffect.D/C Plan r/t Psy Potential Problem List:: DVT, Bleeding, Infection, UTI, Aspiration, Falls, Skin Integrity, Depression Risk of Complications DVT: LMWH, ROMULO Hose, Sequential Compression Device Bleeding: Monitor Lab Values, Nursing to Teach Precautions for anti-coagulation therapy., Wound, if applicable, to be assessed every shift., Stroke patients assessed for lethargy or change in status. Infection: Clinical Staff to Monitor for S/S of infection:, S/S of infection include fever, redness, warmth, etc. Urinary Tract Infection: Monitor for frequency, burning, discomfort, or incontinence., Nursing will obtain urine sample for urinalysis and C&S when ordered. Aspiration: Clinical staff will monitor for coughing, drooling, congestion., Speech will evaluate swallowing and dsyphasia., Nursing will monitor patient swallowing during meals. Falls: Patient will be evaluated for Fall Precautions, Patient will be placed on Fall Precautions as indicated per protocol. Skin Breakdown: Nursing will assess skin daily using assessment tool., Nursing will place on Skin Breakdown Precautions as indicated. Pain: Clinical staff will assess patient's pain level per protocol., Medications will be given, if needed, and the pain level reassessed., Other methods: Massage, distraction, decrease stimulus, etc. used PRN. Plan of Care Patient requires physician specializing in physical medicine and rehab oversight to provide close medical supervision of rehab issues including: Pain Management, Sleep Problems, Bowel and Bladder, Medical and co-morbidity Management, DVT prophylaxis, Rehabilitation Leadership, Coordination of treatment team Patient needs Physical Therapy: For a minimum of 1 hour, At least 5 out of 7 days Patient needs Physical Therapy to improve:: Mobility, Mobility, Mobility, Strengthening, Transfers, Stretching, ROM, Endurance, Stairs, Gait, Balance Patient needs Occupational Therapy: For a minimum of 1 hour, At least 5 out of 7 days Patient needs Occupational Therapy to improve ADL's incl.: Eating, Grooming, Bathing, Dressing, Toileting, Toilet transfers, Community Reintegration, Higher functioning activities, Household tasks, Adaptive Equipment, Splinting, Other activities as determined Patient requires speech therapy: For a minimum of 1 hour, At least 5 out of 7 days Patient requires speech therapy for: Swallowing, Cognition, Language Skills, Compensatory Strategies Patient requires 24/ Rehabilitation Nursing for: Pain Issues, Identifying and preventing risk factors, Monitoring and reporting current medical conditions, Assisting with ambulation, transfer, and all ADL's, Teaching patients about disease process and medications, Family teaching, Providing safe environment, Bowel and Bladder Issues, Skin integrity, Medication Management Patient needs Cellophane Bag Machine Operator/ Case Management for: Discharge Planning, Arranging Home Equipment or Services, Family Interventions Patient needs Dietary and Nutrition Services for: Adequate Nutrition, Nut ritional Supplements, Nutritional Education Goals Patient will remain: free from falls, or injury at time of discharge. Patient will perform bed mobility at: MOD I level of assist. Patient will complete transfers from bed to chair at: MOD I level of assist. Patient will ambulate: 100 feet, with MOD I assist, with LRD Patient will complete upper body dressing at: MOD I level of assist. Patient will complete lower body dressing at: MOD I level of assist. Patient will complete toileting at: MOD I level of assist. Patient will perform bathing at: MOD I level of assist. Patient will complete grooming at: MOD I level of assist. Patient will complete home management skills at: MOD I level of assist. Patient will achieve: 12 stairs, at MOD I assist Patient will have pain level of: of 3 or less Patient's skin will: remain intact, free from infection. Patient will receive: adequate nutrition. Discharge Planning Pt Prognosis for Sig. Practical Improv. w/in Reasonable Time: Good Anticipated D/C Destination: Home with Outpt Therapy Was Preadmission Assessment Accurate?: Yes
[2018-09-10 12:16] LABS: Bedside Glucose 264 mg/dL (70-110)
--- NOTE | 2018-09-10 13:24 | PCM.PN.HOSP ---
Patient Problems: Active and Suspected Problems Diabetes mellitus, type II (Acute) Subjective: Patient seen and examined. His was by his side. He expressed some frustration with how physical therapy was going, as he didnt think he was making much progress. He denied any fever, chills, palpitations, cough, chest pain, abdominal pain, SOB, diarrhea or vomiting. Review of systems was otherwise negative. labs and vitals reviewed. Vitals/I&O's: Vital Signs Temp Pulse Resp BP Pulse Ox 98.2 F 79 18 138/76 H 96 09/10/18 07:23 09/10/18 07:23 09/10/18 07:23 09/10/18 07:23 09/10/18 07:23 Oxygen Flow Rate (L/min) 3 Oxygen Delivery Method Room Air Weight: 223 lb 12.307 oz Body Mass Index (BMI) 32.1 Finger Stick Blood Glucose 268 Intake and Output for Last 24 Hours 09/08/18 09/09/18 09/10/18 23:59 23:59 23:59 Intake Total 1130 / 1130 320 / 320 Balance 1130 / 1130 320 / 320 General: Alert, Oriented x3, Cooperative, No apparent distress HEENT: Atraumatic, PERRLA, EOMI, Normocephalic Oral: Moist Mucosa Neck: Supple, No JVD, Negative Carotid Bruits Lungs: Clear to auscultation, Normal air movement, No rhonchi, No wheeze, No rales Cardiovascular: Regular rate, Regular Rhythm, Normal S1, Normal S2, No murmurs Abdomen: Bowel Sounds Present, Soft, Non Tender, Non-Distended, No Hepato-splenomegaly Extremities: No clubbing, No cyanosis, No edema, Capillary Refill Less than 3 Seconds Skin: No rashes, No breakdown Musculoskeletal: No Tenderness to Palpation of Joints or Extremities Lymphatic: No Cervical, Supraclavicular, or Inguinal Adenopathy Neurological: Cranial nerves II-XII grossly intact - right sided facial droop, - - right sided hemiparesis, with power 3-/5in RUE and RLE Psych/Mental Status: Normal Affect, Appropriate, Alert and oriented to time, place, person, mood and affect Laboratory Results 09/09/18 17:16: POC Glucose 211 H 09/09/18 21:10: POC Glucose 240 H 09/09/18 23:00: POC Glucose 214 H 09/10/18 06:34: POC Glucose 168 H 09/10/18 12:11: POC Glucose 264 H Current Medications Acetaminophen (Tylenol) 650 mg PO Q8H PRN PRN PRN Reason: PAIN Aspirin (Ecotrin) 81 mg PO DAILY@0800 [facility] [place] Last Admin: 09/10/18 09:45 Dose: 81 mg Atorvastatin Calcium (Lipitor) 80 mg PO QHS [facility] Last Admin: 09/09/18 23:02 Dose: 80 mg Bisacodyl (Dulcolax) 10 mg RECTAL .PRN X 1 PRN PRN Reason: Constipation Calamine/Phenol (Calmoseptine Ointment) 1 applic TOPICAL BID [facility]; Protocol Last Admin: 09/10/18 09:47 Dose: 1 applicatio Clopidogrel Bisulfate (Plavix) 75 mg PO DAILY [facility] Stop: 09/27/18 10:01 Last Admin: 09/10/18 09:45 Dose: 75 mg Enoxaparin Sodium (Lovenox) 40 mg SC DAILY@0600 [facility] Last Admin: 09/10/18 06:21 Dose: 40 mg Insulin Human Lispro (Humalog Kwikpen (Bkc)) 0 unit SC [facility]; Protocol Last Admin: 09/10/18 12:30 Dose: 2 u Lisinopril (Zestril) 20 mg PO DAILY [facility] Last Admin: 09/10/18 09:46 Dose: 20 mg Magnesium Hydroxide (Milk Of Magnesia) 30 ml PO .PRN X 1 PRN PRN Reason: Constipation [facility] Last Admin: 09/10/18 09:45 Dose: 500 mg Multivitamins/Minerals (Multivitamin With Minerals) 1 tablet PO DAILY@0800 [facility] Last Admin: 09/10/18 09:45 Dose: 1 tablet Senna/Docusate Sodium (Senokot-S, Joy-Colace) 2 tablet PO BID [facility] Last Admin: 09/10/18 09:46 Dose: Not Given Medical Necessity - Tobacco Use Smoking Status: Never smoker Tobacco Use: Non-smoker Assessment/Plan All Active Problems Diabetes mellitus, type II (Acute) 1. CVA involving left middle cerebral artery has residual right sided weakness with some facial droop didnt receive TPA PT/OT on board on aspirin, plavix and statin fall precautions speech therapy on board 2. Diabetes mellitus type 2: on metformin. ISS. Accuchecks ACHS 3. HypertensionL: on lisinopril. BP well controlld 4. Hyperlipidemia: on statin 5. Obesity: encourage weight loss and DASH diet DVT prophylaxis; lovenox Code Visit Inpatient E&M: 49065 Subs Hosp L2
--- NOTE | 2018-09-10 13:30 | PN_ITS ---
Patient Problems: Active and Suspected Problems Diabetes mellitus, type II (Acute) Subjective: Patient seen and examined. His was by his side. He expressed some frustration with how physical therapy was going, as he didnt think he was making much progress. He denied any fever, chills, palpitations, cough, chest pain, abdominal pain, SOB, diarrhea or vomiting. Review of systems was otherwise negative. labs and vitals reviewed. Vitals/I&O's: Vital Signs Temp Pulse Resp BP Pulse Ox 98.2 F 79 18 138/76 H 96 09/10/18 07:23 09/10/18 07:23 09/10/18 07:23 09/10/18 07:23 09/10/18 07:23 Oxygen Flow Rate (L/min) 3 Oxygen Delivery Method Room Air Weight: 223 lb 12.307 oz Body Mass Index (BMI) 32.1 Finger Stick Blood Glucose 268 Intake and Output for Last 24 Hours 09/08/18 09/09/18 09/10/18 23:59 23:59 23:59 Intake Total 1130 / 1130 320 / 320 Balance 1130 / 1130 320 / 320 General: Alert, Oriented x3, Cooperative, No apparent distress HEENT: Atraumatic, PERRLA, EOMI, Normocephalic Oral: Moist Mucosa Neck: Supple, No JVD, Negative Carotid Bruits Lungs: Clear to auscultation, Normal air movement, No rhonchi, No wheeze, No rales Cardiovascular: Regular rate, Regular Rhythm, Normal S1, Normal S2, No murmurs Abdomen: Bowel Sounds Present, Soft, Non Tender, Non-Distended, No Hepato- splenomegaly Extremities: No clubbing, No cyanosis, No edema, Capillary Refill Less than 3 Seconds Skin: No rashes, No breakdown Musculoskeletal: No Tenderness to Palpation of Joints or Extremities Lymphatic: No Cervical, Supraclavicular, or Inguinal Adenopathy Neurological: Cranial nerves II-XII grossly intact - right sided facial droop, - - right sided hemiparesis, with power 3-/5in RUE and RLE Psych/Mental Status: Normal Affect, Appropriate, Alert and oriented to time, place, person, mood and affect Laboratory Results 09/09/18 17:16: POC Glucose 211 H 09/09/18 21:10: POC Glucose 240 H 09/09/18 23:00: POC Glucose 214 H 09/10/18 06:34: POC Glucose 168 H 09/10/18 12:11: POC Glucose 264 H Current Medications Acetaminophen (Tylenol) 650 mg PO Q8H PRN PRN PRN Reason: PAIN Aspirin (Ecotrin) 81 mg PO DAILY@0800 [facility] Last Admin: 09/10/18 09:45 Dose: 81 mg Atorvastatin Calcium (Lipitor) 80 mg PO QHS [facility] Last Admin: 09/09/18 23:02 Dose: 80 mg Bisacodyl (Dulcolax) 10 mg RECTAL .PRN X 1 PRN PRN Reason: Constipation Calamine/Phenol (Calmoseptine Ointment) 1 applic TOPICAL BID [facility]; Protocol Last Admin: 09/10/18 09:47 Dose: 1 applicatio Clopidogrel Bisulfate (Plavix) 75 mg PO DAILY [facility] Stop: 09/27/18 10:01 Last Admin: 09/10/18 09:45 Dose: 75 mg Enoxaparin Sodium (Lovenox) 40 mg SC DAILY@0600 [facility] Last Admin: 09/10/18 06:21 Dose: 40 mg Insulin Human Lispro (Humalog Kwikpen (Bkc)) 0 unit SC [facility]; Protocol Last Admin: 09/10/18 12:30 Dose: 2 u Lisinopril (Zestril) 20 mg PO DAILY [facility] Last Admin: 09/10/18 09:46 Dose: 20 mg Magnesium Hydroxide (Milk Of Magnesia) 30 ml PO .PRN X 1 PRN PRN Reason: Constipation Metformin [facility] (Glucophage) [facility] Last Admin: 09/10/18 09:45 Dose: 500 mg Multivitamins/Minerals (Multivitamin With Minerals) 1 tablet PO DAILY@0800 [facility] Last Admin: 09/10/18 09:45 Dose: 1 tablet Senna/Docusate Sodium (Senokot-S, Joy-Colace) 2 tablet PO BID [facility] Last Admin: 09/10/18 09:46 Dose: Not Given Medical Necessity - Tobacco Use Smoking Status: Never smoker Tobacco Use: Non-smoker Assessment/Plan All Active Problems Diabetes mellitus, type II (Acute) 1. 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 Diabetes mellitus type 2: on metformin. ISS. Accuchecks ACHS 3. HypertensionL: on lisinopril. BP well controlld 4. Hyperlipidemia: on statin 5. Obesity: encourage weight loss and DASH diet DVT prophylaxis; lovenox Code Visit Inpatient E&M: 12291 Subs Hosp L2
--- NOTE | 2018-09-10 15:30 | NURSING ---
This RN and SENIOR INFORMATION DEVELOPER showered pt. pt tolerated well.
[2018-09-10 16:43] VITALS: BMI 32.1
[2018-09-10 16:56] LABS: Bedside Glucose 215 mg/dL (70-110)
[2018-09-10 20:00] VITALS: BP 130/68; PULSE 101; RESP 16; TEMP 36.9; O2SAT 3; O2SAT 93; BMI 32.1
[2018-09-10] MEDS: Atorvastatin Calcium 80 MG Tablet PO (20:02)
[2018-09-10] MEDS: Senna/Docusate Sodium 1 Tablet 2 TABLET PO (20:02)
[2018-09-10 22:02] LABS: Bedside Glucose 266 mg/dL (70-110)
--- NOTE | 2018-09-11 01:54 | NURSING ---
Reviewed & agree with BRAND STRATEGY MANAGER documentation & FIMS charting.
[2018-09-11] MEDS: Enoxaparin 40 MG/0.4 ML Syringe SC (05:09)
[2018-09-11 06:50] VITALS: O2SAT 91
[2018-09-11 06:51] LABS: Bedside Glucose 191 mg/dL (70-110)
[2018-09-11 07:00] VITALS: BP 155/91; PULSE 91; RESP 17; TEMP 36.7; O2SAT 93
--- NOTE | 2018-09-11 07:22 | NURSING ---
pt set off PA and staff found pt swinging legs over side of bed. Pt states he was looking for his glasses. Pt urged to use call light and reeducated on how to use call light. Pt was repositioned in bed by staff.
[2018-09-11] MEDS: Aspirin E.C. 81 MG Tablet PO (07:43)
[2018-09-11] MEDS: Insulin Lispro 100 UNIT/ML INSULN.PEN SC ×4 (07:43→20:29)
[2018-09-11] MEDS: Multivitamins,Ther W-Minerals Tablet 1 TABLET PO (07:44)
[2018-09-11] MEDS: Clopidogrel Bisulfate 75 MG Tablet PO (07:44)
[2018-09-11] MEDS: Lisinopril 20 MG Tablet PO (07:44)
[2018-09-11] MEDS: Menthol/Lanolin/Calamine/Znox 113 GM Tube 1 APPLIC TOPICAL ×2 (07:57→20:29)
[2018-09-11 11:46] LABS: Bedside Glucose 236 mg/dL (70-110)
[2018-09-11 15:05] VITALS: BMI 32.1
[2018-09-11 16:26] LABS: Bedside Glucose 174 mg/dL (70-110)
--- NOTE | 2018-09-11 17:29 | PCM.PN.NEU ---
Patient Problems: Active and Suspected Problems Diabetes mellitus, type II (Acute) Subjective: Patient seen, no new complaints. Tolerating therapy. No issues with /GI, tolerating mechanical soft diet. Denies any dizziness, blurry vision or double vision. - Physical Exam General: Alert, Oriented x3, Cooperative HEENT: Atraumatic, PERRLA, EOMI, Normocephalic Neck: Supple, No JVD, Negative Carotid Bruits Lungs: Clear to auscultation, Normal air movement Cardiovascular: Regular rate, No murmurs Abdomen: Bowel Sounds Present, Soft, Non Tender Extremities: No edema, Capillary Refill Less than 3 Seconds Skin: No rashes, No breakdown Musculoskeletal: No Tenderness to Palpation of Joints or Extremities Neurological: Cranial nerves II-XII grossly intact Psych/Mental Status: Normal Affect, Appropriate, Alert and oriented to time, place, person, mood and affect Vital Signs Temp Pulse Resp BP Pulse Ox 98.1 F 91 17 155/91 H 93 09/11/18 07:00 09/11/18 07:00 09/11/18 07:00 09/11/18 07:00 09/11/18 07:00 Oxygen Flow Rate (L/min) 3 Oxygen Delivery Method Room Air Weight: 101.5 kg Body Mass Index (BMI) 32.1 Finger Stick Blood Glucose 268 Intake and Output for Last 24 Hours 09/09/18 09/10/18 09/11/18 23:59 23:59 23:59 Intake Total 1130 / 1130 320 / 320 600 / 600 Balance 1130 / 1130 320 / 320 600 / 600 POC Glucose 09/11/18 09/11/18 09/11/18 16:13 11:13 06:35 POC Glucose 174 H 236 H 191 H 09/10/18 19:59 POC Glucose 266 H Active Medications Acetaminophen (Tylenol) 650 mg PO Q8H PRN PRN PRN Reason: PAIN Aspirin (Ecotrin) 81 mg PO DAILY@0800 [facility] Last Admin: 09/11/18 07:43 Dose: 81 mg Atorvastatin Calcium (Lipitor) 80 mg PO QHS [facility] Last Admin: 09/10/18 20:02 Dose: 80 mg Bisacodyl (Dulcolax) 10 mg RECTAL .PRN X 1 PRN PRN Reason: Constipation Calamine/Phenol (Calmoseptine Ointment) 1 applic TOPICAL BID [facility]; Protocol Last Admin: 09/11/18 07:57 Dose: 1 applicatio Clopidogrel Bisulfate (Plavix) 75 mg PO DAILY [facility] Stop: 09/27/18 10:01 Last Admin: 09/11/18 07:44 Dose: 75 mg Enoxaparin Sodium (Lovenox) 40 mg SC DAILY@0600 [facility] Last Admin: 09/11/18 05:09 Dose: 40 mg Insulin Human Lispro (Humalog Kwikpen (Bkc)) 0 unit SC ACHS [facility]; Protocol Last Admin: 09/11/18 17:21 Dose: 1 u Lisinopril (Zestril) 20 mg PO DAILY [facility] Last Admin: 09/11/18 07:44 Dose: 20 mg Magnesium Hydroxide (Milk Of Magnesia) 30 ml PO .PRN X 1 PRN PRN Reason: Constipation Met[facility] (Glucophage) [facility] Last Admin: 09/11/18 17:21 Dose: 500 mg Multivitamins/Minerals (Multivitamin With Minerals) 1 tablet PO DAILY@0800 [facility] Last Admin: 09/11/18 07:44 Dose: 1 tablet Senna/Docusate Sodium (Senokot-S, Joy-Colace) 2 tablet PO BID [facility] Last Admin: 09/11/18 07:42 Dose: Not Given Medical Necessity - Tobacco Use Smoking Status: Never smoker Tobacco Use: Non-smoker Assessment/Plan All Active Problems Diabetes mellitus, type II (Acute) 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 Goal of rehab is mandaen of prior level of functional independence. Complicated by diabetes and hypertension. He has new hypersomnia but previous to his stroke he did not have hypersomnia. Plan: Physical therapy for gait and balance Occupational Therapy for ADLs Speech therapy Bowel protocol PRN analgesics PRN sleep aid Continue anti-glycemic agents and follow Continue antihypertensives and follow Statin therapy, Plavix, and aspirin
[2018-09-11 20:00] VITALS: BP 157/84; PULSE 90; RESP 18; TEMP 36.3; O2SAT 92; BMI 32.1
[2018-09-11] MEDS: Atorvastatin Calcium 80 MG Tablet PO (20:30)
[2018-09-11 22:01] LABS: Bedside Glucose 209 mg/dL (70-110)
--- NOTE | 2018-09-12 04:36 | NURSING ---
Reviewed and agree with ENERGY TRADER documentation and FIMs charting
[2018-09-12] MEDS: Enoxaparin 40 MG/0.4 ML Syringe SC (05:11)
[2018-09-12 07:51] LABS: Bedside Glucose 154 mg/dL (70-110)
[2018-09-12] MEDS: Clopidogrel Bisulfate 75 MG Tablet PO (07:52)
[2018-09-12] MEDS: Aspirin E.C. 81 MG Tablet PO (07:53)
[2018-09-12] MEDS: Multivitamins,Ther W-Minerals Tablet 1 TABLET PO (07:53)
[2018-09-12] MEDS: Lisinopril 20 MG Tablet PO (07:53)
[2018-09-12] MEDS: Insulin Lispro 100 UNIT/ML INSULN.PEN SC ×4 (07:54→22:51)
--- NOTE | 2018-09-12 08:49 | CT_ITS ---
STUDY: CT BRAIN WITHOUT CONTRAST REASON FOR EXAM: Male, 68 years old. Altered mental status. History of left CVA territory infarction. RADIATION DOSAGE (If Supplied By Facility): CTDIvol = ( 44.99 ) mGy, DLP = ( 846.73 ) mGycm TECHNIQUE: Transaxial CT imaging of the brain was performed without administration of intravenous contrast material. Individualized dose optimization techniques were used for this CT. COMPARISON: Comparison is made with prior examination dated September 05, 2018. FINDINGS: Normal soft tissue structures. Normal calvarium. There is moderate cerebral atrophy with widening of the extra-axial spaces and ventricular dilatation. There are areas of decreased attenuation within the white matter tracts of the supratentorial brain, consistent with microvascular disease changes. There now with evidence of a decreased attenuation in the left basal ganglion as well as the left thalamus and insular cortex of the left temporal lobe. This also evidence of an old lacunar infarct in the right thalamus. Normal brainstem. Normal cerebellum. There is no intracranial hemorrhage. Atherosclerotic calcification of the cavernous portions of the internal carotid arteries. Normal visualized paranasal sinuses. CT/Brain/Head without Contrast IMPRESSION: Chronic involutional changes of the brain. Decreased attenuation in the left basal ganglion as well as the insular cortex of the left temporal lobe. Old lacunar infarct in the right thalamus. Electronically Signed: Jean Montoya MD at 9:46 EST Tel [phone], Service support ,
[2018-09-12 09:32] VITALS: BP 154/85; PULSE 82; RESP 17; TEMP 37.1; O2SAT 92
[2018-09-12 10:00] VITALS: PULSE 80
[2018-09-12] MEDS: Menthol/Lanolin/Calamine/Znox 113 GM Tube 1 APPLIC TOPICAL ×2 (10:06→22:51)
--- NOTE | 2018-09-12 10:13 | EKGRS_ITS ---
Test Reason : Blood Pressure : / mmHG Vent. Rate : 089 BPM Atrial Rate : 089 BPM P-R Int : 184 ms QRS Dur : 094 ms QT Int : 382 ms P-R-T Axes : 043 -41 028 degrees QTc Int : 464 ms Normal sinus rhythm Left axis deviation Minimal voltage criteria for LVH, may be normal variant Poor R wave progression Abnormal ECG Confirmed by AROLDO BECKWITH, VIKTORIA ([id number]), newspaper copy editor FLAKO JACKSON ([id number]) on 09/14/2018 10:48:07 AM Referred By: Wilmar Burton Confirmed By:VIKTORIA KENDRICK MD
[2018-09-12 10:45] LABS: Bedside Glucose 259 mg/dL (70-110)
[2018-09-12 11:00] VITALS: O2SAT 93
[2018-09-12 11:32] LABS: Absolute Lymphocyte Count 1.93 X10^3/ul (0.83-4.51); Absolute Neutrophil Count 6.6 X10^3/uL (2.0-7.7); Basophil# 0.02 X10^3/uL; Basophil% 0.2 % (0-1); Eosinophils% 3.1 % (0-5); Hematocrit 43.9 % (40-54); Hemoglobin 14.5 g/dl (13.0-16.5); Lymphocyte # 1.93 X10^3/ul (4.0); Mean Corpuscular Hgb 27.3 pg (27.0-32.0); Mean Corpuscular Volume 82.7 fL (80-94); Mean Platelet Vol. 9.5 fl (6.2-12.0); Monocyte# 0.79 X10^3/uL; Monocyte% 8.2 % (0-10); Neutrophil % 68.3 % (47-70); Platelet Count 222 K/mm3 (150-450); RBC Distribution Width CV 14.4 % (11.6-14.6); RBC Distribution Width SD 43.1 fl (35.1-43.9); Red Blood Count 5.31 M/mm3 (4.6-6.2); White Blood Count 9.7 K/mm3 (4.4-11.0)
[2018-09-12 11:33] LABS: POSITIVE COUNT NO; POSITIVE DIFFERENTIAL NO; POSITIVE MORPHOLOGY NO
[2018-09-12 11:56] LABS: Anion Gap 7 (5-15); BUN 19 mg/dL (7-18); Calcium,Total 8.7 mg/dL (8.5-10.1); Chloride 105 mmol/L (98-107); Creatinine, Serum 0.68 mg/dL (0.70-1.30); EST Glomerular Filtration Rate 123 mL/min (>60); Est Glom Filt Rate - Afr Amer 149 mL/min (>60); Estimated Creatinine Clearance 71.99 ml/min; Glucose 228 mg/dL (74-106); Sodium Level 138 mmol/L (136-145)
[2018-09-12 12:27] VITALS: BMI 32.1
[2018-09-12 13:57] LABS: Bacteria 0 SEEN /hpf (None Seen); Mucous, Urine 0 SEEN /hpf (<or=2+); White Blood Cells 0 SEEN /hpf (0-5)
[2018-09-12 14:00] LABS: Color, Urine Yellow (Yellow); Glucose, Dipstick 250 mg/dl (Normal); Ketone-Dipstick 15 mg/dl (Negative); Leukocyte Esterase-Dipstick Negative /ul (Negative); Nitrite-Dipstick Negative (Negative); Occult Blood-Urine Negative /ul (Negative); Protein-Dipstick 15 mg/dl (Negative); Specific Gravity, Urine 1.025 (1.002-1.030); Urine Bilirubin Dipstick Negative (Negative); Urine Clarity Clear (Clear); Urine Urobilinogen Normal (Normal)
[2018-09-12 14:06] LABS: Red Blood Cells-Urine 0-5 SEEN /hpf (0-5); Squamous Epithelial Cells - UA 0-5 SEEN /hpf (0-5)
[2018-09-12 16:05] LABS: Bedside Glucose 186 mg/dL (70-110)
--- NOTE | 2018-09-12 16:07 | PCM.PN.HOSP ---
Patient Problems: Active and Suspected Problems Diabetes mellitus, type II (Acute) Subjective: Patient seen and examined. He has no complaints. He has been tolerating therapy, but says he feels tired. Per discussion with his nurse, he had a repeat CT because he was noted to have worsening right sided weakness and lethargy. CT scan showed no new stroke; UA sent was also not indicative of UTI Vitals/I&O's: Vital Signs Temp Pulse Resp BP Pulse Ox 98.8 F 80 17 154/85 H 93 09/12/18 09:32 09/12/18 10:00 09/12/18 09:32 09/12/18 09:32 09/12/18 11:00 Oxygen Flow Rate (L/min) 2.5 Oxygen Delivery Method Nasal Cannula Weight: 223 lb 12.307 oz Body Mass Index (BMI) 32.1 Finger Stick Blood Glucose 268 Intake and Output for Last 24 Hours 09/10/18 09/11/18 09/12/18 23:59 23:59 23:59 Intake Total 320 / 320 600 / 600 160 / 160 Balance 320 / 320 600 / 600 160 / 160 General: Alert, Oriented x3, Cooperative, No apparent distress HEENT: Atraumatic, PERRLA, EOMI, Normocephalic Oral: Moist Mucosa Neck: Supple, No JVD, Negative Carotid Bruits Lungs: Clear to auscultation, Normal air movement, No rhonchi, No wheeze, No rales Cardiovascular: Regular rate, Regular Rhythm, Normal S1, Normal S2, No murmurs Abdomen: Bowel Sounds Present, Soft, Non Tender, Non-Distended, No Hepato-splenomegaly Extremities: No clubbing, No cyanosis, No edema, Capillary Refill Less than 3 Seconds Skin: No rashes, No breakdown Musculoskeletal: No Tenderness to Palpation of Joints or Extremities Lymphatic: No Cervical, Supraclavicular, or Inguinal Adenopathy Neurological: Cranial nerves II-XII grossly intact except facial nerve- right sided facial droop, - -worsening right sided hemiparesis, with power 2/5/5in RUE and RLE Psych/Mental Status: Normal Affect, Appropriate, Alert and oriented to time, place, person, mood and affect Laboratory Results 09/11/18 16:13: POC Glucose 174 H 09/11/18 20:25: POC Glucose 209 H 09/12/18 07:13: POC Glucose 154 H 09/12/18 10:40: POC Glucose 259 H 09/12/18 11:16: WBC 9.7, RBC 5.31, Hgb 14.5, Hct 43.9, MCV 82.7, MCH 27.3, MCHC 33.0, RDW 14.4, RDW Differential 43.1, Plt Count 222, MPV 9.5, Immature Gran % (Auto) 0.200, Neut % (Auto) 68.3, Lymph % (Auto) 20.0, [place] % (Auto) 8.2, Eos % (Auto) 3.1, Baso % (Auto) 0.2, Absolute Neuts (auto) 6.6, Absolute Lymphs (auto) 1.93, Total Counted Not Reportable 09/12/18 11:16: Sodium 138, Potassium 4.0, Chloride 105, Carbon Dioxide 26.0, Anion Gap 7, BUN 19 H, Creatinine 0.68 L, Estim Creat Clear Calc 71.99, Est GFR (MDRD) Af Amer 149, Est GFR (MDRD) Non-Af 123, BUN/Creatinine Ratio 28.0 H, Glucose 228 H, Calcium 8.7 09/12/18 13:40: Urine Color Yellow, Urine Clarity Clear, Urine pH 5.0, Ur Specific [place] 1.025, Urine Protein 15 H, Urine Glucose (UA) 250 H, Urine Ketones 15 H, Urine Occult Blood Negative, Urine Nitrite Negative, Urine Bilirubin Negative, Urine Urobilinogen Normal, Ur Leukocyte Esterase Negative, Urine RBC 0-5 SEEN, Urine WBC 0 SEEN, Ur Squamous Epith Cells 0-5 SEEN, Urine Bacteria 0 SEEN, Urine Mucus 0 SEEN 09/12/18 15:51: POC Glucose 186 H Current Medications Acetaminophen (Tylenol) 650 mg PO Q8H PRN PRN PRN Reason: PAIN Aspirin (Ecotrin) 81 mg PO DAILY@0800 [facility] Last Admin: 09/12/18 07:53 Dose: 81 mg Atorvastatin Calcium (Lipitor) 80 mg PO QHS [facility] Last Admin: 09/11/18 20:30 Dose: 80 mg Bisacodyl (Dulcolax) 10 mg RECTAL .PRN X 1 PRN PRN Reason: Constipation Calamine/Phenol (Calmoseptine Ointment) 1 applic TOPICAL BID [facility]; Protocol Last Admin: 09/12/18 10:06 Dose: 1 applicatio Clopidogrel Bisulfate (Plavix) 75 mg PO DAILY [facility] Stop: 09/27/18 10:01 Last Admin: 09/12/18 07:52 Dose: 75 mg Enoxaparin Sodium (Lovenox) 40 mg SC DAILY@0600 [facility] Last Admin: 09/12/18 05:11 Dose: 40 mg Insulin Human Lispro (Humalog Kwikpen (Bkc)) 0 unit SC [facility]; Protocol Last Admin: 09/12/18 10:46 Dose: 2 u Lisinopril (Zestril) 20 mg PO DAILY [facility] Last Admin: 09/12/18 07:53 Dose: 20 mg Magnesium Hydroxide (Milk Of Magnesia) 30 ml PO .PRN X 1 PRN PRN Reason: Constipation [facility] Last Admin: 09/12/18 07:53 Dose: 500 mg Multivitamins/Minerals (Multivitamin With Minerals) 1 tablet PO DAILY@0800 [facility] Last Admin: 09/12/18 07:53 Dose: 1 tablet Senna/Docusate Sodium (Senokot-S, Joy-Colace) 2 tablet PO BID [facility] Last Admin: 09/12/18 07:53 Dose: Not Given Medical Necessity - Tobacco Use Smoking Status: Never smoker Tobacco Use: Non-smoker Assessment/Plan All Active Problems Diabetes mellitus, type II (Acute) 1. CVA involving left middle cerebral artery has worsening of right hemiparesis repeat CT head showed decreased attenuation of left basal ganglion as well as left thalamus and insular cortex of left temporal lobe PT/OT on board on aspirin, plavix and statin fall precautions speech therapy on board neurology on board 2. Diabetes mellitus type 2: on metformin. ISS. Accuchecks [facility] 3. Hypertension: BP has been in 150s and 140s systolic. Goal is for systolic BP <130mmhg. Will increase lisinopril to 40mg daily. 4. Hyperlipidemia: on statin 5. Obesity: encourage weight loss and DASH diet DVT prophylaxis; lovenox Code Visit Inpatient E&M: 62634 Subs Hosp L2
--- NOTE | 2018-09-12 16:21 | PN_ITS ---
Patient Problems: Active and Suspected Problems Diabetes mellitus, type II (Acute) Subjective: Patient seen and examined. He has no complaints. He has been tolerating therapy, but says he feels tired. Per discussion with his nurse, he had a repeat CT because he was noted to have worsening right sided weakness and lethargy. CT scan showed no new stroke; UA sent was also not indicative of UTI Vitals/I&O's: Vital Signs Temp Pulse Resp BP Pulse Ox 98.8 F 80 17 154/85 H 93 09/12/18 09:32 09/12/18 10:00 09/12/18 09:32 09/12/18 09:32 09/12/18 11:00 Oxygen Flow Rate (L/min) 2.5 Oxygen Delivery Method Nasal Cannula Weight: 223 lb 12.307 oz Body Mass Index (BMI) 32.1 Finger Stick Blood Glucose 268 Intake and Output for Last 24 Hours 09/10/18 09/11/18 09/12/18 23:59 23:59 23:59 Intake Total 320 / 320 600 / 600 160 / 160 Balance 320 / 320 600 / 600 160 / 160 General: Alert, Oriented x3, Cooperative, No apparent distress HEENT: Atraumatic, PERRLA, EOMI, Normocephalic Oral: Moist Mucosa Neck: Supple, No JVD, Negative Carotid Bruits Lungs: Clear to auscultation, Normal air movement, No rhonchi, No wheeze, No rales Cardiovascular: Regular rate, Regular Rhythm, Normal S1, Normal S2, No murmurs Abdomen: Bowel Sounds Present, Soft, Non Tender, Non-Distended, No Hepato- splenomegaly Extremities: No clubbing, No cyanosis, No edema, Capillary Refill Less than 3 Seconds Skin: No rashes, No breakdown Musculoskeletal: No Tenderness to Palpation of Joints or Extremities Lymphatic: No Cervical, Supraclavicular, or Inguinal Adenopathy Neurological: Cranial nerves II-XII grossly intact except facial nerve- right sided facial droop, - -worsening right sided hemiparesis, with power 2/5/5in RUE and RLE Psych/Mental Status: Normal Affect, Appropriate, Alert and oriented to time, place, person, mood and affect Laboratory Results 09/11/18 16:13: POC Glucose 174 H 09/11/18 20:25: POC Glucose 209 H 09/12/18 07:13: POC Glucose 154 H 09/12/18 10:40: POC Glucose 259 H 09/12/18 11:16: WBC 9.7, RBC 5.31, Hgb 14.5, Hct 43.9, MCV 82.7, MCH 27.3, MCHC 33.0, RDW 14.4, RDW Differential 43.1, Plt Count 222, MPV 9.5, Immature Gran % (Auto) 0.200, Neut % (Auto) 68.3, Lymph % (Auto) 20.0, [place] % (Auto) 8.2, Eos % (Auto) 3.1, Baso % (Auto) 0.2, Absolute Neuts (auto) 6.6, Absolute Lymphs (auto) 1.93, Total Counted Not Reportable 09/12/18 11:16: Sodium 138, Potassium 4.0, Chloride 105, Carbon Dioxide 26.0, Anion Gap 7, BUN 19 H, Creatinine 0.68 L, Estim Creat Clear Calc 71.99, Est GFR (MDRD) Af Amer 149, Est GFR (MDRD) Non-Af 123, BUN/Creatinine Ratio 28.0 H, Glucose 228 H, Calcium 8.7 09/12/18 13:40: Urine Color Yellow, Urine Clarity Clear, Urine pH 5.0, Ur Specific [place] 1.025, Urine Protein 15 H, Urine Glucose (UA) 250 H, Urine Ketones 15 H, Urine Occult Blood Negative, Urine Nitrite Negative, Urine Bilirubin Negative, Urine Urobilinogen Normal, Ur Leukocyte Esterase Negative, Urine RBC 0-5 SEEN, Urine WBC 0 SEEN, Ur Squamous Epith Cells 0-5 SEEN, Urine Bacteria 0 SEEN, Urine Mucus 0 SEEN 09/12/18 15:51: POC Glucose 186 H Current Medications Acetaminophen (Tylenol) 650 mg PO Q8H PRN PRN PRN Reason: PAIN Aspirin (Ecotrin) 81 mg PO DAILY@0800 [facility] Last Admin: 09/12/18 07:53 Dose: 81 mg Atorvastatin Calcium (Lipitor) 80 mg PO QHS [facility] Last Admin: 09/11/18 20:30 Dose: 80 mg Bisacodyl (Dulcolax) 10 mg RECTAL .PRN X 1 PRN PRN Reason: Constipation Calamine/Phenol (Calmoseptine Ointment) 1 applic TOPICAL BID [facility]; Protocol Last Admin: 09/12/18 10:06 Dose: 1 applicatio Clopidogrel Bisulfate (Plavix) 75 mg PO DAILY [facility] Stop: 09/27/18 10:01 Last Admin: 09/12/18 07:52 Dose: 75 mg Enoxaparin Sodium (Lovenox) 40 mg SC DAILY@0600 [facility] Last Admin: 09/12/18 05:11 Dose: 40 mg Insulin Human Lispro (Humalog Kwikpen (Bkc)) 0 unit SC [facility]; Protocol Last Admin: 09/12/18 10:46 Dose: 2 u Lisinopril (Zestril) 20 mg PO DAILY [facility] Last Admin: 09/12/18 07:53 Dose: 20 mg Magnesium Hydroxide (Milk Of Magnesia) 30 ml PO .PRN X 1 PRN PRN Reason: Constipation [facility] Last Admin: 09/12/18 07:53 Dose: 500 mg Multivitamins/Minerals (Multivitamin With Minerals) 1 tablet PO DAILY@0800 [facility] Last Admin: 09/12/18 07:53 Dose: 1 tablet Senna/Docusate Sodium (Senokot-S, Joy-Colace) 2 tablet PO BID [facility] Last Admin: 09/12/18 07:53 Dose: Not Given Medical Necessity - Tobacco Use Smoking Status: Never smoker Tobacco Use: Non-smoker Assessment/Plan All Active Problems Diabetes mellitus, type II (Acute) 1. CVA involving left middle cerebral artery * has worsening of right hemiparesis * repeat CT head showed decreased attenuation of left basal ganglion as well as left thalamus and insular cortex of left temporal lobe * PT/OT on board * on aspirin, plavix and statin * fall precautions * speech therapy on board * neurology on board * 2. Diabetes mellitus type 2: on metformin. ISS. Accuchecks [facility] 3. Hypertension: BP has been in 150s and 140s systolic. Goal is for systolic BP <130mmhg. Will increase lisinopril to 40mg daily. 4. Hyperlipidemia: on statin 5. Obesity: encourage weight loss and DASH diet DVT prophylaxis; lovenox Code Visit Inpatient E&M: 67487 Subs Hosp L2
[2018-09-12 18:45] VITALS: BP 151/95; PULSE 95; RESP 16; TEMP 36.8; O2SAT 98
[2018-09-12] MEDS: Atorvastatin Calcium 80 MG Tablet PO (22:53)
[2018-09-12 23:13] LABS: Bedside Glucose 197 mg/dL (70-110)
[2018-09-13 01:09] VITALS: BMI 32.1
[2018-09-13] MEDS: Enoxaparin 40 MG/0.4 ML Syringe SC (05:54)
[2018-09-13 07:00] VITALS: BP 150/79; PULSE 75; RESP 18; TEMP 36.7; O2SAT 95
[2018-09-13 07:31] LABS: Bedside Glucose 148 mg/dL (70-110)
[2018-09-13] MEDS: Aspirin E.C. 81 MG Tablet PO (07:47)
[2018-09-13] MEDS: Lisinopril 40 MG Tablet PO (07:47)
[2018-09-13] MEDS: Clopidogrel Bisulfate 75 MG Tablet PO (07:47)
[2018-09-13] MEDS: Multivitamins,Ther W-Minerals Tablet 1 TABLET PO (07:47)
[2018-09-13] MEDS: Menthol/Lanolin/Calamine/Znox 113 GM Tube 1 APPLIC TOPICAL ×2 (11:56→21:58)
[2018-09-13] MEDS: Insulin Lispro 100 UNIT/ML INSULN.PEN SC ×3 (11:58→21:57)
[2018-09-13 12:06] LABS: Bedside Glucose 234 mg/dL (70-110)
--- NOTE | 2018-09-13 12:49 | PCM.PN.NEU ---
Patient Problems: Active and Suspected Problems Diabetes mellitus, type II (Acute) Subjective: Patient seen and examined. No new complaints. He's tolerating therapy, but says he feels tired. He had a repeat CT 2/2 worsening right sided weakness and lethargy. CT scan showed no new stroke; UA was sent also and was negative for UTI. Tolerating Mechanical soft diet with thin liquids. No issues with GI/. - Physical Exam General: Alert, Oriented x3, Cooperative HEENT: Atraumatic, PERRLA, EOMI, Normocephalic Neck: Supple, No JVD, Negative Carotid Bruits Lungs: Clear to auscultation, Normal air movement Cardiovascular: Regular rate, No murmurs Abdomen: Bowel Sounds Present, Soft, Non Tender Extremities: No edema, Capillary Refill Less than 3 Seconds Skin: No rashes, No breakdown Musculoskeletal: No Tenderness to Palpation of Joints or Extremities Neurological: Cranial nerves II-XII grossly intact Psych/Mental Status: Normal Affect, Appropriate, Alert and oriented to time, place, person, mood and affect Vital Signs Temp Pulse Resp BP Pulse Ox 98.1 F 75 18 150/79 H 95 09/13/18 07:00 09/13/18 07:00 09/13/18 07:00 09/13/18 07:00 09/13/18 07:00 Oxygen Flow Rate (L/min) 3 Oxygen Delivery Method Room Air Weight: 98.4 kg Body Mass Index (BMI) 32.1 Finger Stick Blood Glucose 268 Intake and Output for Last 24 Hours 09/11/18 09/12/18 09/13/18 23:59 23:59 23:59 Intake Total 600 / 600 160 / 160 480 / 480 Balance 600 / 600 160 / 160 480 / 480 Microbiology Past 72 Hours 09/12/18 13:40 Urine Culture - Preliminary Urine Catheter - Catheter Culture exhibits no growth. Laboratory Tests Past 24 Hrs 09/12/18 13:40 Urine Color Yellow Urine Clarity Clear Urine pH 5.0 Ur Specific [place] 1.025 Urine Protein 15 H Urine Glucose (UA) 250 H Urine Ketones 15 H Urine Occult Blood Negative Urine Nitrite Negative Urine Bilirubin Negative Urine Urobilinogen Normal Ur Leukocyte Esterase Negative Urine RBC 0-5 SEEN Urine WBC 0 SEEN Ur Squamous Epith Cells 0-5 SEEN Urine Bacteria 0 SEEN Urine Mucus 0 SEEN POC Glucose 09/13/18 09/13/18 09/12/18 11:57 07:01 22:50 POC Glucose 234 H 148 H 197 H 09/12/18 15:51 POC Glucose 186 H Active Medications Acetaminophen (Tylenol) 650 mg PO Q8H PRN PRN PRN Reason: PAIN Aspirin (Ecotrin) 81 mg PO DAILY@0800 [facility] Last Admin: 09/13/18 07:47 Dose: 81 mg Atorvastatin Calcium (Lipitor) 80 mg PO QHS [facility] Last Admin: 09/12/18 22:53 Dose: 80 mg Bisacodyl (Dulcolax) 10 mg RECTAL .PRN X 1 PRN PRN Reason: Constipation Calamine/Phenol (Calmoseptine Ointment) 1 applic TOPICAL BID [facility]; Protocol Last Admin: 09/13/18 11:56 Dose: 1 applicatio Clopidogrel Bisulfate (Plavix) 75 mg PO DAILY [facility] Stop: 09/27/18 10:01 Last Admin: 09/13/18 07:47 Dose: 75 mg Enoxaparin Sodium (Lovenox) 40 mg SC DAILY@0600 [facility] Last Admin: 09/13/18 05:54 Dose: 40 mg Insulin Human Lispro (Humalog Kwikpen (Bkc)) 0 unit SC [facility]; Protocol Last Admin: 09/13/18 11:58 Dose: 2 u Lisinopril (Zestril) 40 mg PO DAILY [facility] Last Admin: 09/13/18 07:47 Dose: 40 mg Magnesium Hydroxide (Milk Of Magnesia) 30 ml PO .PRN X 1 PRN PRN Reason: Constipation [facility] ([facility]uc[facility]) 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 Goal of rehab is worship of prior level of functional independence. Complicated by diabetes and hypertension. He has new hypersomnia but previous to his stroke he did not have hypersomnia. Plan: Physical therapy for gait and balance Occupational Therapy for ADLs Speech therapy Bowel protocol PRN analgesics PRN sleep aid Continue anti-glycemic agents and follow Continue antihypertensives and follow Statin therapy, Plavix, and aspirin
[2018-09-13 14:35] VITALS: O2SAT 92
[2018-09-13 17:00] VITALS: BMI 32.1
[2018-09-13 17:20] LABS: Bedside Glucose 228 mg/dL (70-110)
[2018-09-13 19:38] VITALS: BP 142/77; PULSE 93; RESP 16; TEMP 36.6; O2SAT 95
[2018-09-13 21:21] LABS: Bedside Glucose 227 mg/dL (70-110)
[2018-09-13] MEDS: Atorvastatin Calcium 80 MG Tablet PO (21:57)
[2018-09-13 22:00] VITALS: BMI 32.1
[2018-09-14] MEDS: Enoxaparin 40 MG/0.4 ML Syringe SC (05:59)
[2018-09-14 06:30] VITALS: O2SAT 93
[2018-09-14 06:36] LABS: Bedside Glucose 167 mg/dL (70-110)
[2018-09-14 07:52] VITALS: BP 122/66; PULSE 82; RESP 18; TEMP 36.8; O2SAT 96
[2018-09-14 08:15] VITALS: O2SAT 92
[2018-09-14] MEDS: Lisinopril 40 MG Tablet PO (08:22)
[2018-09-14] MEDS: Multivitamins,Ther W-Minerals Tablet 1 TABLET PO (08:22)
[2018-09-14] MEDS: Insulin Lispro 100 UNIT/ML INSULN.PEN SC ×4 (08:22→21:31)
[2018-09-14] MEDS: Aspirin E.C. 81 MG Tablet PO (08:22)
[2018-09-14] MEDS: Clopidogrel Bisulfate 75 MG Tablet PO (08:22)
[2018-09-14 08:27] VITALS: O2SAT 92
[2018-09-14] MEDS: Menthol/Lanolin/Calamine/Znox 113 GM Tube 1 APPLIC TOPICAL ×2 (08:44→21:09)
--- NOTE | 2018-09-14 10:02 | MRI_ITS ---
STUDY: MRI BRAIN WITH AND WITHOUT CONTRAST REASON FOR EXAM: Male, 68 years old. Right sided flaccidity TECHNIQUE: Standardized multiplanar fat and water weighted pulse sequences were obtained. 10 ml of Gadavist contrast material was administered intravenously for the contrast portion of the examination. COMPARISON: CT of the brain on September 12, 2018 FINDINGS: Moderate atrophy and periventricular white matter ischemic changes without mass effect or restricted diffusion.. There is diffuse gliosis in the left basal ganglia extending inferomedially into the left cerebral peduncle as well as cephalad into the deep white matter tracts in the left frontal parietal region with involvement of the body of the caudate nucleus. Tiny old lacunar infarct in right basal ganglia and left posterior thalamus There is no extra-axial fluid accumulation. Normal flow voids within the major intracranial circulation suggesting patency by spin echo criteria. Normal venous enhancement. There is partial enhancement of the lesion in the left basal ganglia as well as the deep white matter extension suggesting subacute ischemic component.. Normal sella turcica, pituitary gland, infundibular stalk, optic chiasm and hypothalamus. Normal tectal plate and pineal gland. Normal midbrain, toney and medulla. Normal cerebellum. Normal basal cisterns. Normal bilateral temporal bones. Normal bilateral internal auditory canals. No demonstrated orbital abnormality, within the constraints of a routine brain study. Mild mucosal thickening of the ethmoid and sphenoid sinuses. Normal calvarium and skull base. Normal visualized soft tissue structures. Normal visualized upper cervical spine. MRI/Brain W/WO Contrast IMPRESSION: Acute lacunar infarct involving left basal ganglia involving deep white matter tracts in left frontal parietal region and body of the caudate nucleus extending inferomedially into the left cerebral peduncle N.B. : The above information has been verbally conveyed by Kolton Tellez MD to Dr. Anai MD, on 09/14/2018 21:10:22 (ET). Electronically Signed: Kolton Tellez MD at 21:03 EST , Service support ,
--- NOTE | 2018-09-14 10:21 | PCM.PN.NEU ---
Patient Problems: Active and Suspected Problems Diabetes mellitus, type II (Acute) Subjective: Staffed in team meeting. Family at bedside, questions answered. With Physical therapy,he has been able to do a couple of good steps about 15 feet with moderate assist and wheel chair follow, using the wall rail. With transfers he is a moderate assist for getting in and out of bed, going from a sitting to a standing position. With Occupational therapy, with personal care such as grooming he is minimal assist for putting on his shirt, he is max assist for toileting requiring 2 persons. when standing he is min/mod assist to maintain his balance. They are continuing to do ROM exercise with the right arm. They are working with sitting up and his balance while he is sitting, to strength his core muscles. With Speech therapy, they continue to work on cognitive and memory exercises. He has become progressively worse with his speech volume which has become very breathy. He has facial and increased motor weakness associated with his oral muscles. He is on a soft foods diet with thin liquids, which he is tolerating well. They recommend that he use a straw since he does not pocket foods and shows no overt signs of aspiration. With Nursing his vital signs are stable and his blood sugars have been good. His pain is well controlled on the current medications. It has been noted that he is Hypersomnia during the day, often falling asleep while doing simple task. He is on O2 at night since his stroke, and is having increase issues with snoring at night. The nursing staff says he sleeps at night and does not complain of not being able to go to see. He states he does not feel refresh in the morning. The plan is to re-team next week. - Physical Exam General: Alert, Oriented x3, Cooperative HEENT: Atraumatic, PERRLA, EOMI, Normocephalic Neck: Supple, No JVD, Negative Carotid Bruits Lungs: Clear to auscultation, Normal air movement Cardiovascular: Regular rate, No murmurs Abdomen: Bowel Sounds Present, Soft, Non Tender Extremities: No edema, Capillary Refill Less than 3 Seconds Skin: No rashes, No breakdown Musculoskeletal: No Tenderness to Palpation of Joints or Extremities Neurological: Cranial nerves II-XII grossly intact Psych/Mental Status: Normal Affect, Appropriate, Alert and oriented to time, place, person, mood and affect Vital Signs Temp Pulse Resp BP Pulse Ox 98.3 F 82 18 122/66 H 92 09/14/18 07:52 09/14/18 07:52 09/14/18 07:52 09/14/18 07:52 09/14/18 08:27 Oxygen Flow Rate (L/min) 2 Oxygen Delivery Method Room Air Weight: 98.4 kg Body Mass Index (BMI) 32.1 Finger Stick Blood Glucose 268 Intake and Output for Last 24 Hours 09/12/18 09/13/18 09/14/18 23:59 23:59 23:59 Intake Total 160 / 160 720 / 720 260 / 260 Balance 160 / 160 720 / 720 260 / 260 Microbiology Past 72 Hours 09/12/18 13:40 Urine Culture - Preliminary Urine Catheter - Catheter Culture exhibits no growth. POC Glucose 09/14/18 09/13/18 09/13/18 06:12 21:07 17:15 POC Glucose 167 H 227 H 228 H 09/13/18 11:57 POC Glucose 234 H Active Medications Acetaminophen (Tylenol) 650 mg PO Q8H PRN PRN PRN Reason: PAIN Aspirin (Ecotrin) 81 mg PO DAILY@0800 [facility] Last Admin: 09/14/18 08:22 Dose: 81 mg Atorvastatin Calcium (Lipitor) 80 mg PO QHS [facility] Last Admin: 09/13/18 21:57 Dose: 80 mg Bisacodyl (Dulcolax) 10 mg RECTAL .PRN X 1 PRN PRN Reason: Constipation Calamine/Phenol (Calmoseptine Ointment) 1 applic TOPICAL BID [facility]; Protocol Last Admin: 09/14/18 08:44 Dose: 1 applicatio Clopidogrel Bisulfate (Plavix) 75 mg PO DAILY [facility] Stop: 09/27/18 10:01 Last Admin: 09/14/18 08:22 Dose: 75 mg Enoxaparin Sodium (Lovenox) 40 mg SC DAILY@0600 [facility] Last Admin: 09/14/18 05:59 Dose: 40 mg Insulin Human Lispro (Humalog Kwikpen (Bkc)) 0 unit SC [facility]; Protocol Lisinopril (Zestril) 40 mg PO DAILY [facility] Last Admin: 09/14/18 08:22 Dose: 40 mg Magnesium Hydroxide (Milk Of Magnesia) 30 ml PO .PRN X 1 PRN PRN Reason: Constipation Metformin HCl (Glucophage) 500 mg PO BIDCM [facility] Last Admin: 09/14/18 08:22 Dose: 500 mg Multivitamins/Minerals (Multivitamin With Minerals) 1 tablet PO DAILY@0800 [facility] Last Admin: 09/14/18 08:22 Dose: 1 tablet Senna/Docusate Sodium (Senokot-S, Joy-Colace) 2 tablet PO BID PRN PRN PRN Reason: CONSTIPATION Medical Necessity - Tobacco Use Smoking Status: Never smoker Tobacco Use: Non-smoker Assessment/Plan All Active Problems Diabetes mellitus, type II (Acute) 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 Goal of rehab is christianity of prior level of functional independence. Complicated by diabetes and hypertension. He has new hypersomnia but previous to his stroke he did not have hypersomnia. Plan: Physical therapy for gait and balance Occupational Therapy for ADLs Speech therapy Bowel protocol PRN analgesics PRN sleep aid Continue anti-glycemic agents and follow Continue antihypertensives and follow Statin therapy, Plavix, and aspirin sleep apnea study test tonight
--- NOTE | 2018-09-14 10:35 | SLEEP ---
ENTERED CORRECT ORDER IN [facility] ITS FOR UNATTENDED SLEEP STUDY ORDERED BY SYBIL MARAVILLA NP. STAFF WILL HOOK PT UP AT BEDTIME.
--- NOTE | 2018-09-14 10:51 | CASEMGMT ---
Team meeting held. Patient present as well as patient spouse. No discharge date set at this time. Patient to continue with further care and treatment on the Inpatient Rehab Unit at this time. Patient approved 23 Medicare days with a discharge on or by 10/01/18. Patient current discharge plan is either home with spouse or to [facility] facility for further therapy, depending on patient level of care closer to discharge. Support given. Will continue to follow. RAYMOND Roberts, VP ANALYTICS
[2018-09-14 11:16] LABS: Bedside Glucose 283 mg/dL (70-110)
--- NOTE | 2018-09-14 12:00 | NURSING ---
off floor to mri of brain per dr pal orders. aware.
--- NOTE | 2018-09-14 13:00 | NURSING ---
back to floor from mri
--- NOTE | 2018-09-14 15:21 | PN_ITS ---
Patient Problems: Active and Suspected Problems Diabetes mellitus, type II (Acute) Subjective: Patient seen and examined. He complains of feeling weak after he had physical therapy. He has no other complaints. According to nurse, an MRI was ordered today as patient seems to be getting weaker and weaker and also had increased n umbness during physical therapy. MRI done and reading pending. Vitals/I&O's: Vital Signs Temp Pulse Resp BP Pulse Ox 98.3 F 82 18 122/66 H 92 09/14/18 07:52 09/14/18 07:52 09/14/18 07:52 09/14/18 07:52 09/14/18 08:27 Oxygen Flow Rate (L/min) 2 Oxygen Delivery Method Room Air Weight: 216 lb 14.958 oz Body Mass Index (BMI) 32.1 Finger Stick Blood Glucose 268 Intake and Output for Last 24 Hours 09/12/18 09/13/18 09/14/18 23:59 23:59 23:59 Intake Total 160 / 160 720 / 720 380 / 380 Balance 160 / 160 720 / 720 380 / 380 General: Alert, Oriented x3, Cooperative, Lethargic HEENT: Atraumatic, PERRLA, EOMI, Normocephalic Oral: Moist Mucosa Neck: Supple, No JVD, Negative Carotid Bruits Lungs: Clear to auscultation, Normal air movement, No rhonchi, No wheeze, No rales Cardiovascular: Regular rate, Regular Rhythm, Normal S1, Normal S2, No murmurs Abdomen: Bowel Sounds Present, Soft, Non Tender, Non-Distended, No Hepato- splenomegaly Extremities: No clubbing, No cyanosis, No edema, Capillary Refill Less than 3 Seconds Skin: No rashes, No breakdown Musculoskeletal: No Tenderness to Palpation of Joints or Extremities Lymphatic: No Cervical, Supraclavicular, or Inguinal Adenopathy Neurological: - - still has right facial droop which hasnt worsened. has worseing right hemiparesis,a nd overall general weakness Psych/Mental Status: Normal Affect, Appropriate, Alert and oriented to time, place, person, mood and affect Microbiology Past 72 Hours 09/12/18 13:40 Urine Catheter - Catheter Urine Culture - Preliminary Culture exhibits no growth. Laboratory Results 09/13/18 17:15: POC Glucose 228 H 09/13/18 21:07: POC Glucose 227 H 09/14/18 06:12: POC Glucose 167 H 09/14/18 11:08: POC Glucose 283 H Current Medications Acetaminophen (Tylenol) 650 mg PO Q8H PRN PRN PRN Reason: PAIN Aspirin (Ecotrin) 81 mg PO DAILY@0800 ON LICENSE OF [facility] Last Admin: 09/14/18 08:22 Dose: 81 mg Atorvastatin Calcium (Lipitor) 80 mg PO QHS ON LICENSE OF [facility] Last Admin: 09/13/18 21:57 Dose: 80 mg Bisacodyl (Dulcolax) 10 mg RECTAL .PRN X 1 PRN PRN Reason: Constipation Calamine/Phenol (Calmoseptine Ointment) 1 applic TOPICAL BID ON LICENSE OF [facility]; Protocol Last Admin: 09/14/18 08:44 Dose: 1 applicatio Clopidogrel Bisulfate (Plavix) 75 mg PO DAILY ON LICENSE OF [facility] Stop: 09/27/18 10:01 Last Admin: 09/14/18 08:22 Dose: 75 mg Enoxaparin Sodium (Lovenox) 40 mg SC DAILY@0600 ON LICENSE OF [facility] Last Admin: 09/14/18 05:59 Dose: 40 mg Insulin Human Lispro (Humalog Kwikpen (Bkc)) 0 unit SC [facility]; Protocol Last Admin: 09/14/18 13:22 Dose: 6 units Lisinopril (Zestril) 40 mg PO DAILY ON LICENSE OF [facility] Last Admin: 09/14/18 08:22 Dose: 40 mg Magnesium Hydroxide (Milk Of Magnesia) 30 ml PO .PRN X 1 PRN PRN Reason: Constipation [facility] Last Admin: 09/14/18 08:22 Dose: 500 mg Multivitamins/Minerals (Multivitamin With Minerals) 1 tablet PO DAILY@0800 ON LICENSE OF [facility] Last Admin: 09/14/18 08:22 Dose: 1 tablet Senna/Docusate Sodium (Senokot-S, Joy-Colace) 2 tablet PO BID PRN PRN PRN Reason: CONSTIPATION Medical Necessity - Tobacco Use Smoking Status: Never smoker Tobacco Use: Non-smoker Assessment/Plan All Active Problems Diabetes mellitus, type II (Acute) 1. CVA involving left middle cerebral artery * has worsening of right hemiparesis and worsening numbness * repeat CT head showed decreased attenuation of left basal ganglion as well as left thalamus and insular cortex of left temporal lobe * MRI of brain ordered: reading is pending * PT/OT on board * on aspirin, plavix and statin * fall precautions * speech therapy on board * neurology on board * 2. Diabetes mellitus type 2: on metformin. ISS. Accuchecks ACHS 3. Hypertension: on lisinopril 40mg daily. 4. Hyperlipidemia: on statin 5. Obesity: encourage weight loss and DASH diet DVT prophylaxis; lovenox Code Visit Inpatient E&M: 29677 Subs Hosp L2
[2018-09-14 15:47] VITALS: BMI 32.1
[2018-09-14 17:26] LABS: Bedside Glucose 181 mg/dL (70-110)
[2018-09-14] MEDS: Atorvastatin Calcium 80 MG Tablet PO (21:03)
--- NOTE | 2018-09-14 21:30 | NURSING ---
PT FEELS LIKE BROKEN IN HALF LIPITOR PILL IS STUCK IN BACK OF THROAT. NOTHING OBSERVED IN OROPHARYNX OR IN CHEEKS. PT HAS SWALLOWED ADDITIONAL APPLESAUCE TO HELP CARRY PILL DOWN. PT ABLE TO SWALLOW. NO DROOLING. NO COUGHING AT PRESENT AND RESP EVEN AND EASY AND QUIET. CALL PLACE TO DR THIAGO Conte, HOSPITALIST. ORDERS GIVEN TO KEEP PT NPO EXCEPT FOR CRUSHED PILLS REMAINDER OF SHIFT AND TO HAVE SPEECH EVAL AND DO SWALLOW EVAL IN AM. NPO SIGN PLACED IN ROOM AND FOOD/LIQUIDS REMOVED FROM BEDSIDE.
[2018-09-14 22:00] VITALS: BP 132/68; PULSE 78; RESP 18; TEMP 36.7; O2SAT 95
[2018-09-14 23:06] LABS: Bedside Glucose 227 mg/dL (70-110)
--- NOTE | 2018-09-15 02:15 | NURSING ---
upon staff doing 2 am hourly round, pt was noted by PIPE INSULATOR to be sitting on the edge of his bed in nothing but an attends. this nurse goes back to pt room to assist with putting pt back to bed. upon this nurse entering the room, pt was noted to have taken off all pieces of portable sleep study equipment and clothing. respiratory consulted to replace device. pt seemed to be agitated at this time. pt refusing all care and assistance. pt refusing portable sleep study device to be put back on and also the application of any oxygen via nasal cannula at this time. pt oriented to person and time. pt pink in color, no excess drooling or increased facial droop noted. will continue to monitor
--- NOTE | 2018-09-15 02:30 | NURSING ---
pt content to be sitting on side of bed with refusal of all other offers. WOOD GANG SAWYER sitting at bedside with pt.
--- NOTE | 2018-09-15 02:45 | NURSING ---
Addendum entered by Linda Marin 09/15/18 02:59: note to be at time of 21:15 on 09/14/18 Original Note: upon administering hs medications, hs does of lipitor split in half for pt to swallow easier. first half of lipitor swallowed in applesauce with no issue. when swallowing second half of lipitor pill, pt requested more applesauce to assist pill down. pt stated that he thought there was a pill stuck in the back of his throat. this nurse administered more applesauce per pt request. after half a container of applesauce, pt still felt as though there was a pill stuck at this time. pt swallowing applesauce with ease and there are no signs or symptoms of choking or aspiration noted. pt given drink of water at this time with the reminder to take a small sip. pt began coughing with water administration. RN notified at this time.
[2018-09-15 03:00] VITALS: BMI 32.1
[2018-09-15 03:35] VITALS: BP 132/68; PULSE 102; RESP 18; O2SAT 91
--- NOTE | 2018-09-15 03:45 | NURSING ---
DR UMANA NOTIFIED BY PHONE OF PT'S LACK OF COOPERATION AND MILD AGITATION AND NEED FOR SITTER AT BEDSIDE PT IS REFUSING TO LAY IN BED. INFORMED OF CURRENT VS AND BLOOD SUGAR AND CURRENT NEURO STATUS. ORDER FOR ATIVAN GIVEN.
[2018-09-15 03:50] LABS: Bedside Glucose 208 mg/dL (70-110)
--- NOTE | 2018-09-15 04:05 | NURSING ---
PT IS REFUSING TO TAKE ATIVAN OR APPLESAUCE. CONTINUES TO ONLY WANT TO SIT ON SIDE OF BED WITH ATTENDS ON. PT CLOSES EYES AT INTERVALS.
--- NOTE | 2018-09-15 04:55 | NURSING ---
PT INFORMED THAT HIS WILL BE CALLED IN TO SIT WITH HIM AND PT WOULD LIKE THAT TO OCCUR. PT STATES HE DOES NOT HAVE CHILDREN IN AREA. PT INFORMED THAT HE WILL NEED TO LAY DOWN IN BED WHEN ARRIVES. PT STATES HE IS NOT SURE IF HE WILL AGREE TO LAY IN BED WHEN ARRIVES. INFORMED THAT IT WILL BE DIFFICULT FOR HIM T REMAIN IN REHAB UNIT IF HE DOES NOT LAY DOWN. , ELAINE, NOTIFIED BY PHONE AND WILL BE COMING INTO UNIT SOON. ADVISED TO DRIVE SAFELY AND TO BE CAREFUL THAT PT IS BEING ATTENDED TO .
--- NOTE | 2018-09-15 05:44 | NURSING ---
PT CONTINUES TO ONLY WANT TO SIT ON SIDE OF BED. RESTING WITH EYES CLOSED, BUT WAKES QUICKLY TO VOICE. WAITING FOR TO ARRIVE. REVIEWED AND AGREE WITH EMERGENCY ROOM REGISTERED NURSE'S FIM AND HANDOFF CHARTING.
--- NOTE | 2018-09-15 06:10 | NURSING ---
PT'S ELAINE ARRIVES. ASKS THAT HER SON MARIA A AND HIS BE NOTIFIED OF CURRENT SITUATION, MESSAGE LEFT FOR EACH. PT CONTINUES TO REFUSE TO LAY DOWN AND STATES HE WANTS TO LEAVE HOSPITAL. INFORMS PT THAT SHE IS UNABLE TO CARE FOR HIM AT HOME CURRENTLY.
--- NOTE | 2018-09-15 06:52 | NURSING ---
PT WANTS TO GET DRESSED NOW AND REFUSES TO BE BATHED. ALLOWS ATTENDS TO BE CHANGED WHICH SOAKED WITH URINE,LAYS IN BED. SITTING CLOSES TO PT.
[2018-09-15 08:18] VITALS: O2SAT 94
[2018-09-15 09:16] VITALS: BP 137/84; PULSE 99; RESP 20; TEMP 36.4; O2SAT 92
[2018-09-15 10:15] LABS: Bedside Glucose 170 mg/dL (70-110)
[2018-09-15] MEDS: Clopidogrel Bisulfate 75 MG Tablet PO (10:17)
[2018-09-15] MEDS: Multivitamins,Ther W-Minerals Tablet 1 TABLET PO (10:17)
[2018-09-15] MEDS: Aspirin E.C. 81 MG Tablet PO (10:17)
[2018-09-15] MEDS: Lisinopril 40 MG Tablet PO (10:17)
[2018-09-15] MEDS: Enoxaparin 40 MG/0.4 ML Syringe SC (10:28)
[2018-09-15] MEDS: Menthol/Lanolin/Calamine/Znox 113 GM Tube 1 APPLIC TOPICAL ×2 (10:35→20:05)
--- NOTE | 2018-09-15 11:14 | PN.NEURO_ITS ---
Patient Problems: Active and Suspected Problems Diabetes mellitus, type II (Acute) Subjective: circadian disruption last night, now sleepy but arouses to voice and follows simple commands. present, questions answered. - Physical Exam Neurological: - - right hemiparesis unchanged Vital Signs Temp Pulse Resp BP Pulse Ox 36.4 C L 99 20 H 137/84 H 92 09/15/18 09:16 09/15/18 09:16 09/15/18 09:16 09/15/18 09:16 09/15/18 09:16 Oxygen Flow Rate (L/min) 2 Oxygen Delivery Method Room Air Weight: 98.4 kg Body Mass Index (BMI) 32.1 Finger Stick Blood Glucose 268 Intake and Output for Last 24 Hours 09/13/18 09/14/18 09/15/18 23:59 23:59 23:59 Intake Total 720 / 720 500 / 500 0 / 0 Balance 720 / 720 500 / 500 0 / 0 Microbiology Past 72 Hours 09/12/18 13:40 Urine Culture - Final Urine Catheter - Catheter Culture exhibits no growth. POC Glucose 09/15/18 09/15/18 09/14/18 10:08 03:44 21:18 POC Glucose 170 H 208 H 227 H 09/14/18 09/14/18 17:07 11:08 POC Glucose 181 H 283 H mri reviewed, appears to demonstrate subacute left large basal ganglia infarct. no previous mri avail for comparison Current Medications Generic Name Dose Route Start Last Admin Trade Name Freq PRN Reason Stop Dose Admin Acetaminophen 650 mg 09/08/18 18:27 Tylenol PO Q8H PRN PRN PAIN Aspirin 81 mg 09/09/18 08:00 09/15/18 10:17 Ecotrin PO 81 mg DAILY@0800 HOWIE Administration Atorvastatin Calcium 80 mg 09/08/18 22:00 09/14/18 21:03 Lipitor PO 80 mg QHS HOWIE Administration Bisacodyl 10 mg 09/08/18 18:34 Dulcolax RECTAL .PRN X 1 PRN Constipation Calamine/Phenol 1 applic 09/09/18 22:00 09/15/18 10:35 Calmoseptine Ointment TOPICAL 1 applicatio BID HOWIE Administration Protocol Clopidogrel Bisulfate 75 mg 09/09/18 10:00 09/15/18 10:17 Plavix PO 09/27/18 10:01 75 mg DAILY HOWIE Administration Enoxaparin Sodium 40 mg 09/09/18 06:00 09/15/18 10:28 Lovenox SC 40 mg DAILY@0600 HOWIE Administration Insulin Human Lispro 0 unit 09/14/18 11:00 09/15/18 10:31 Humalog Barbara (Bkc) SC Not Given ACHS HOWIE Protocol Lisinopril 40 mg 09/13/18 10:00 09/15/18 10:17 Zestril PO 40 mg DAILY HOWIE Administration Magnesium Hydroxide 30 ml 09/08/18 18:34 Milk Of Magnesia PO .PRN X 1 PRN Constipation Metformin HCl 500 mg 09/09/18 08:00 09/15/18 10:17 Glucophage PO 500 mg BIDCM HOWIE Administration Multivitamins/Minerals 1 tablet 09/09/18 08:00 09/15/18 10:17 Multivitamin With Minerals PO 1 tablet DAILY@0800 HOWIE Administration Senna/Docusate Sodium 2 tablet 09/13/18 19:42 Senokot-S, Joy-Colace PO BID PRN PRN CONSTIPATION Medical Necessity - Tobacco Use Smoking Status: Never smoker Tobacco Use: Non-smoker Assessment/Plan All Active Problems Diabetes mellitus, type II (Acute) 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 Goal of rehab is presy[place]eterian of prior level of functional independence. Complicated by diabetes and hypertension. He has new hypersomnia but previous to his stroke he did not have hypersomnia. Plan: Physical therapy for gait and balance Occupational Therapy for ADLs Speech therapy Bowel protocol PRN analgesics PRN sleep aid Continue anti-glycemic agents and follow Continue antihypertensives and follow Statin therapy, Plavix, and aspirin Circadian disruption: seroquel qhs
--- NOTE | 2018-09-15 12:46 | BH.SGPN.T2 ---
Behaviors/Verbalizations/Mental Status: [] Client Response/Progress/Benefit: [] Narrative Note: []NPO
--- NOTE | 2018-09-15 14:00 | NURSING ---
Patient has been resting in bed all day with verbal stimuli effective or touch stimuli but remains fatigued. Follows commands but very slow to respond and delayed. at bedside throughout morning. Patient did not sleep last night per report but finally fell asleep after 6am. ST did bedside swallow and patient is fine to eat PO if alert and awake. VS WNL. Will monitor.
[2018-09-15 15:01] VITALS: BMI 32.1
[2018-09-15 16:26] LABS: Bedside Glucose 171 mg/dL (70-110)
--- NOTE | 2018-09-15 18:03 | NURSING ---
At dinner table with family present and patient is alert and feeding self. NO signs of choking. Pleasant and cooperative at this time.
[2018-09-15] MEDS: Atorvastatin Calcium 80 MG Tablet PO (20:05)
[2018-09-15] MEDS: QUEtiapine 25 MG Tablet PO (20:05)
[2018-09-15 21:14] VITALS: BP 118/69; PULSE 86; RESP 20; TEMP 36.9; O2SAT 98
[2018-09-15 21:25] LABS: Bedside Glucose 280 mg/dL (70-110)
[2018-09-15] MEDS: NYSTATIN 500,000 UNIT/5 ML UDC 500000 UNIT PO (23:13)
[2018-09-15] MEDS: Insulin Lispro 100 UNIT/ML INSULN.PEN SC (23:13)
[2018-09-16 01:30] VITALS: BMI 32.1
--- NOTE | 2018-09-16 02:16 | NURSING ---
Reviewed and agree with LPNs fims and handoff
[2018-09-16] MEDS: Enoxaparin 40 MG/0.4 ML Syringe SC (06:46)
[2018-09-16 06:50] VITALS: O2SAT 93
[2018-09-16 07:00] VITALS: BP 122/71; PULSE 84; RESP 16; TEMP 36.8; O2SAT 84
[2018-09-16 07:15] LABS: Bedside Glucose 114 mg/dL (70-110)
[2018-09-16] MEDS: Lisinopril 40 MG Tablet PO (07:43)
[2018-09-16] MEDS: Clopidogrel Bisulfate 75 MG Tablet PO (07:44)
[2018-09-16] MEDS: Aspirin E.C. 81 MG Tablet PO (07:44)
[2018-09-16] MEDS: Multivitamins,Ther W-Minerals Tablet 1 TABLET PO (07:44)
[2018-09-16] MEDS: Menthol/Lanolin/Calamine/Znox 113 GM Tube 1 APPLIC TOPICAL ×2 (09:30→19:43)
[2018-09-16] MEDS: NYSTATIN 500,000 UNIT/5 ML UDC 500000 UNIT PO ×4 (09:30→19:42)
[2018-09-16 12:01] LABS: Bedside Glucose 152 mg/dL (70-110)
[2018-09-16] MEDS: Insulin Lispro 100 UNIT/ML INSULN.PEN SC ×3 (13:19→23:07)
[2018-09-16 14:15] VITALS: BMI 32.1
[2018-09-16 17:05] LABS: Bedside Glucose 225 mg/dL (70-110)
[2018-09-16] MEDS: Atorvastatin Calcium 80 MG Tablet PO (19:42)
[2018-09-16] MEDS: QUEtiapine 25 MG Tablet PO (19:42)
[2018-09-16 21:24] VITALS: BP 134/65; PULSE 92; RESP 20; TEMP 36.8; O2SAT 95
[2018-09-16 21:45] LABS: Bedside Glucose 170 mg/dL (70-110)
[2018-09-16 23:55] VITALS: BMI 32.1
--- NOTE | 2018-09-17 00:35 | NURSING ---
Reviewed and agree with LPNs fims and handoff
[2018-09-17] MEDS: Enoxaparin 40 MG/0.4 ML Syringe SC (06:50)
[2018-09-17 06:56] LABS: Bedside Glucose 135 mg/dL (70-110)
[2018-09-17] MEDS: Lisinopril 40 MG Tablet PO (08:16)
[2018-09-17] MEDS: Clopidogrel Bisulfate 75 MG Tablet PO (08:16)
[2018-09-17] MEDS: Aspirin E.C. 81 MG Tablet PO (08:16)
[2018-09-17] MEDS: Multivitamins,Ther W-Minerals Tablet 1 TABLET PO (08:16)
[2018-09-17] MEDS: NYSTATIN 500,000 UNIT/5 ML UDC 500000 UNIT PO ×4 (08:17→20:26)
[2018-09-17 08:36] VITALS: BP 116/70; PULSE 86; RESP 20; TEMP 36.7; O2SAT 93
[2018-09-17] MEDS: Menthol/Lanolin/Calamine/Znox 113 GM Tube 1 APPLIC TOPICAL ×2 (08:56→20:28)
[2018-09-17 11:01] LABS: Bedside Glucose 225 mg/dL (70-110)
[2018-09-17] MEDS: Insulin Lispro 100 UNIT/ML INSULN.PEN SC ×3 (12:04→20:33)
[2018-09-17 14:11] VITALS: BMI 32.1
--- NOTE | 2018-09-17 14:27 | PCM.PN.HOSP ---
Patient Problems: Active and Suspected Problems Diabetes mellitus, type II (Acute) Subjective: Patient seen and examined. He looks more alert today. He had no complaints and feels well. and children were by his bedside. Labs and vitals reviewed. Blood pressure has improved since medication was adjusted. Vitals reviewed. Vitals/I&O's: Vital Signs Temp Pulse Resp BP Pulse Ox 98.1 F 86 20 H 116/70 93 09/17/18 08:36 09/17/18 08:36 09/17/18 08:36 09/17/18 08:36 09/17/18 08:36 Oxygen Flow Rate (L/min) 2 Oxygen Delivery Method Room Air Weight: 216 lb 14.958 oz Body Mass Index (BMI) 32.1 Finger Stick Blood Glucose 268 Intake and Output for Last 24 Hours 09/15/18 09/16/18 09/17/18 23:59 23:59 23:59 Intake Total 0 / 0 480 / 480 600 / 600 Balance 0 / 0 480 / 480 600 / 600 General: Alert, Oriented x3, Cooperative, mildly Lethargic HEENT: Atraumatic, PERRLA, EOMI, Normocephalic Oral: Moist Mucosa Neck: Supple, No JVD, Negative Carotid Bruits Lungs: Clear to auscultation, Normal air movement, No rhonchi, No wheeze, No rales Cardiovascular: Regular rate, Regular Rhythm, Normal S1, Normal S2, No murmurs Abdomen: Bowel Sounds Present, Soft, Non Tender, Non-Distended, No Hepato-splenomegaly Extremities: No clubbing, No cyanosis, No edema, Capillary Refill Less than 3 Seconds Skin: No rashes, No breakdown Musculoskeletal: No Tenderness to Palpation of Joints or Extremities Lymphatic: No Cervical, Supraclavicular, or Inguinal Adenopathy Neurological: - - right facial droop and right hemiparesis Psych/Mental Status: Normal Affect, Appropriate, Alert and oriented to time, place, person, mood and affect Microbiology Past 72 Hours 09/12/18 13:40 Urine Catheter - Catheter Urine Culture - Final Culture exhibits no growth. Laboratory Results 09/16/18 16:40: POC Glucose 225 H 09/16/18 21:31: POC Glucose 170 H 09/17/18 06:50: POC Glucose 135 H 09/17/18 10:52: POC Glucose 225 H Current Medications Acetaminophen (Tylenol) 650 mg PO Q8H PRN PRN PRN Reason: PAIN Aspirin (Ecotrin) 81 mg PO DAILY@0800 [facility] Last Admin: 09/17/18 08:16 Dose: 81 mg Atorvastatin Calcium (Lipitor) 80 mg PO QHS [facility] Last Admin: 09/16/18 19:42 Dose: 80 mg Bisacodyl (Dulcolax) 10 mg RECTAL .PRN X 1 PRN PRN Reason: Constipation Calamine/Phenol (Calmoseptine Ointment) 1 applic TOPICAL BID [facility]; Protocol Last Admin: 09/17/18 08:56 Dose: 1 applicatio Clopidogrel Bisulfate (Plavix) 75 mg PO DAILY [facility] Stop: 09/27/18 10:01 Last Admin: 09/17/18 08:16 Dose: 75 mg Enoxaparin Sodium (Lovenox) 40 mg SC DAILY@0600 [facility] Last Admin: 09/17/18 06:50 Dose: 40 mg Insulin Human Lispro (Humalog Kwikpen (Bkc)) 0 unit SC [facility]; Protocol Last Admin: 09/17/18 12:04 Dose: 4 units Lisinopril (Zestril) 40 mg PO DAILY [facility] Last Admin: 09/17/18 08:16 Dose: 40 mg Magnesium Hydroxide (Milk Of Magnesia) 30 ml PO .PRN X 1 PRN PRN Reason: Constipation [facility] Last Admin: 09/17/18 08:16 Dose: 500 mg Multivitamins/Minerals (Multivitamin With Minerals) 1 tablet PO DAILY@0800 [facility] Last Admin: 09/17/18 08:16 Dose: 1 tablet Nystatin (Nystatin) 500,000 unit PO 4X/DAY [facility] Last Admin: 09/17/18 13:26 Dose: 500,000 unit Quetiapine Fumarate (Seroquel) 25 mg PO QHS [facility] Last Admin: 09/16/18 19:42 Dose: 25 mg Senna/Docusate Sodium (Senokot-S, Joy-Colace) 2 tablet PO BID PRN PRN PRN Reason: CONSTIPATION Medical Necessity - Tobacco Use Smoking Status: Never smoker Tobacco Use: Non-smoker Assessment/Plan All Active Problems Diabetes mellitus, type II (Acute) 1. CVA involving left middle cerebral artery stable had worsening of right hemiparesis and worsening numbness a few days ago has worsening of right hemiparesis and worsening numbness repeat CT head showed decreased attenuation of left basal ganglion as well as left thalamus and insular cortex of left temporal lobe MRI of brain: acute lacunar infarct involving deep white matter tract in left frontal pareietal region and body of caudate nucleus extending inferior medially into the left cerebral peduncle. Neurology on board. MRI evidence is similar to the previous stroke that he had which resulted in him being admitted here. PT/OT on board on aspirin, plavix and statin fall precautions speech therapy on board 2. Diabetes mellitus type 2: on metformin. Blood sugar control has been fair with blood sugar sometimes going into the 200s. Will increase metformin to thousand milligrams twice daily. ISS. Accuchecks ACHS 3. Hypertension: on lisinopril 40mg daily. Blood pressure control has improved. 4. Hyperlipidemia: on statin 5. Obesity: encourage weight loss and DASH diet DVT prophylaxis; lovenox Code Visit Inpatient E&M: 95030 Subs Hosp L2
--- NOTE | 2018-09-17 14:31 | PN_ITS ---
Patient Problems: Active and Suspected Problems Diabetes mellitus, type II (Acute) Subjective: Patient seen and examined. He looks more alert today. He had no complaints and feels well. and children were by his bedside. Labs and vitals reviewed. Blood pressure has improved since medication was adjusted. Vitals reviewed. Vitals/I&O's: Vital Signs Temp Pulse Resp BP Pulse Ox 98.1 F 86 20 H 116/70 93 09/17/18 08:36 09/17/18 08:36 09/17/18 08:36 09/17/18 08:36 09/17/18 08:36 Oxygen Flow Rate (L/min) 2 Oxygen Delivery Method Room Air Weight: 216 lb 14.958 oz Body Mass Index (BMI) 32.1 Finger Stick Blood Glucose 268 Intake and Output for Last 24 Hours 09/15/18 09/16/18 09/17/18 23:59 23:59 23:59 Intake Total 0 / 0 480 / 480 600 / 600 Balance 0 / 0 480 / 480 600 / 600 General: Alert, Oriented x3, Cooperative, mildly Lethargic HEENT: Atraumatic, PERRLA, EOMI, Normocephalic Oral: Moist Mucosa Neck: Supple, No JVD, Negative Carotid Bruits Lungs: Clear to auscultation, Normal air movement, No rhonchi, No wheeze, No rales Cardiovascular: Regular rate, Regular Rhythm, Normal S1, Normal S2, No murmurs Abdomen: Bowel Sounds Present, Soft, Non Tender, Non-Distended, No Hepato- splenomegaly Extremities: No clubbing, No cyanosis, No edema, Capillary Refill Less than 3 Seconds Skin: No rashes, No breakdown Musculoskeletal: No Tenderness to Palpation of Joints or Extremities Lymphatic: No Cervical, Supraclavicular, or Inguinal Adenopathy Neurological: - - right facial droop and right hemiparesis Psych/Mental Status: Normal Affect, Appropriate, Alert and oriented to time, place, person, mood and affect Microbiology Past 72 Hours 09/12/18 13:40 Urine Catheter - Catheter Urine Culture - Final Culture exhibits no growth. Laboratory Results 09/16/18 16:40: POC Glucose 225 H 09/16/18 21:31: POC Glucose 170 H 09/17/18 06:50: POC Glucose 135 H 09/17/18 10:52: POC Glucose 225 H Current Medications Acetaminophen (Tylenol) 650 mg PO Q8H PRN PRN PRN Reason: PAIN Aspirin (Ecotrin) 81 mg PO DAILY@0800 [facility] Last Admin: 09/17/18 08:16 Dose: 81 mg Atorvastatin Calcium (Lipitor) 80 mg PO QHS [facility] Last Admin: 09/16/18 19:42 Dose: 80 mg Bisacodyl (Dulcolax) 10 mg RECTAL .PRN X 1 PRN PRN Reason: Constipation Calamine/Phenol (Calmoseptine Ointment) 1 applic TOPICAL BID [facility]; Protocol Last Admin: 09/17/18 08:56 Dose: 1 applicatio Clopidogrel Bisulfate (Plavix) 75 mg PO DAILY [facility] Stop: 09/27/18 10:01 Last Admin: 09/17/18 08:16 Dose: 75 mg Enoxaparin Sodium (Lovenox) 40 mg SC DAILY@0600 [facility] Last Admin: 09/17/18 06:50 Dose: 40 mg Insulin Human Lispro (Humalog Kwikpen (Bkc)) 0 unit SC [facility]; Protocol Last Admin: 09/17/18 12:04 Dose: 4 units Lisinopril (Zestril) 40 mg PO DAILY [facility] Last Admin: 09/17/18 08:16 Dose: 40 mg Magnesium Hydroxide (Milk Of Magnesia) 30 ml PO .PRN X 1 PRN PRN Reason: Constipation [facility] Last Admin: 09/17/18 08:16 Dose: 500 mg Multivitamins/Minerals (Multivitamin With Minerals) 1 tablet PO DAILY@0800 [facility] Last Admin: 09/17/18 08:16 Dose: 1 tablet Nystatin (Nystatin) 500,000 unit PO 4X/DAY [facility] Last Admin: 09/17/18 13:26 Dose: 500,000 unit Quetiapine Fumarate (Seroquel) 25 mg PO QHS [facility] Last Admin: 09/16/18 19:42 Dose: 25 mg Senna/Docusate Sodium (Senokot-S, Joy-Colace) 2 tablet PO BID PRN PRN PRN Reason: CONSTIPATION Medical Necessity - Tobacco Use Smoking Status: Never smoker Tobacco Use: Non-smoker Assessment/Plan All Active Problems Diabetes mellitus, type II (Acute) 1. CVA involving left middle cerebral artery * stable * had worsening of right hemiparesis and worsening numbness a few days ago * has worsening of right hemiparesis and worsening numbness * repeat CT head showed decreased attenuation of left basal ganglion as well as left thalamus and insular cortex of left temporal lobe * MRI of brain: acute lacunar infarct involving deep white matter tract in left frontal pareietal region and body of caudate nucleus extending inferior medially into the left cerebral peduncle. * Neurology on board. MRI evidence is similar to the previous stroke that he had which resulted in him being admitted here. * PT/OT on board * on aspirin, plavix and statin * fall precautions * speech therapy on board * 2. Diabetes mellitus type 2: * on metformin. Blood sugar control has been fair with blood sugar sometimes going into the 200s. * Will increase metformin to thousand milligrams twice daily. * ISS. * Accuchecks ACHS 3. Hypertension: on lisinopril 40mg daily. Blood pressure control has improved. 4. Hyperlipidemia: on statin 5. Obesity: encourage weight loss and DASH diet DVT prophylaxis; lovenox Code Visit Inpatient E&M: 86971 Subs Hosp L2
[2018-09-17] MEDS: metFORMIN HCl 1,000 MG Tablet 1000 MG PO (17:31)
[2018-09-17 17:41] LABS: Bedside Glucose 230 mg/dL (70-110)
[2018-09-17 20:10] VITALS: PULSE 94; RESP 18; RESP 93; TEMP 36.8; O2SAT 93; BMI 32.1
[2018-09-17] MEDS: Atorvastatin Calcium 80 MG Tablet PO (20:25)
[2018-09-17] MEDS: QUEtiapine 25 MG Tablet PO (20:26)
[2018-09-17 22:35] LABS: Bedside Glucose 217 mg/dL (70-110)
--- NOTE | 2018-09-18 04:53 | NURSING ---
Reviewed and agree with LPNs fims and handoff
[2018-09-18] MEDS: Enoxaparin 40 MG/0.4 ML Syringe SC (06:44)
[2018-09-18 07:30] LABS: Bedside Glucose 152 mg/dL (70-110)
[2018-09-18] MEDS: Insulin Lispro 100 UNIT/ML INSULN.PEN SC ×4 (08:20→22:12)
[2018-09-18] MEDS: Aspirin E.C. 81 MG Tablet PO (08:20)
[2018-09-18] MEDS: metFORMIN HCl 1,000 MG Tablet 1000 MG PO ×2 (08:20→17:06)
[2018-09-18] MEDS: Multivitamins,Ther W-Minerals Tablet 1 TABLET PO (08:21)
[2018-09-18] MEDS: Clopidogrel Bisulfate 75 MG Tablet PO (08:21)
[2018-09-18] MEDS: Lisinopril 40 MG Tablet PO (08:21)
[2018-09-18 09:02] VITALS: BP 123/75; PULSE 95; RESP 18; TEMP 36.8; O2SAT 94
[2018-09-18] MEDS: NYSTATIN 500,000 UNIT/5 ML UDC 500000 UNIT PO ×4 (11:29→22:12)
[2018-09-18 11:46] LABS: Bedside Glucose 202 mg/dL (70-110)
--- NOTE | 2018-09-18 13:00 | SP.MBSS_ITS ---
PRIMARY / SECONDARY DIAGNOSIS: CVA/Dysphagia REFERRING PHYSICIAN: Dr. Ospina CURRENT DIET: puree/thin DENTITION: Natural upper/lower dentition w/ the majority of the upper dentition (and a significant quantity of the lower dentition) either previously removed or broken off at the dental root; upper partial was present consisting 1 tooth (#8) w/ what appears to be significant deterioration and possible previous chipping/broken sections not present. MENTAL STATUS: Hypersomnolent, although able to follow basic commands for participation in MBS RESPIRATORY STATUS: oxygenating on room air w/ lung sounds clear PREVIOUS MODIFIED BARIUM SWALLOW STUDY: n/a REASON FOR REFERRAL: Pt. is a 68 YOM admitted to [facility] on 09/08/2018 following 09/05/2018 left middle cerebral artery cerebrovascular accident involving the left basal ganglia involving deep white matter tracts in left frontal parietal region and body of the caudate nucleus extending inferomedially into the left cerebral peduncle; initial right sided weakness w/ dysarthria, presenting to ED outside [facility] window; noted to develop progressive hypersomnia and eventual circadian disruption initially concerning for CVA evolution MEDICAL HISTORY: left MCA arterial ischemic stroke, hypertension, type II diabetes mellitus, hyperlipidemia, obesity (BMI 30.0-34.9) STUDY FINDINGS: Patient participated in a Modified Barium Swallow (MBS) study on 09/18/2018 Dr. Montoya was the radiologist present for this evaluation. This study was recorded in the lateral view and images were sent to PACs for storage. The following consistencies were presented to this patient for analysis of oropharyngeal swallow function: thin liquid, pudding, and a regular texture Lorie Doone shortbread cookie. Results of the MBS are as follows: PENETRATION / ASPIRATION SCALE (MALLORY): 1 = does not enter airway 2 = enters airway/above vocal folds/ejected 3 = enters airway/above vocal folds/not ejected 4 = enters airway/contacts vocal folds/ejected 5 = enters airway/contacts vocal folds/not ejected 6 = enters airway/below vocal folds/ejected 7 = enters airway/below vocal folds/not ejected despite effort 8 = enters airway/below vocal folds/no effort PENETRATION / ASPIRATION SCALE (SCORE): 1. Thin liquid tsp: unable to score, did not swallow 2. Thin liquid straw: 2 = enters airway/above vocal folds/ejected 3. Puddin = does not enter airway 4. Cookie: 1 = does not enter airway 5. Thin liquid straw: 2 = enters airway/above vocal folds/ejected IMPRESSION ORAL PHASE CHARACTERIZED BY: LABIAL SEAL: escape beyond mid chin TONGUE CONTROL DURING BOLUS MANIPULATION: escape to lateral buccal cavity/floor of mouth BOLUS PREPARATION / MASTICATION: disorganized chewing/mashing with solid pieces of bolus unchewed BOLUS TRANSPORT / LINGUAL MOTION: repetitive/disorganized tongue motion ORAL RESIDUE: residue collection on oral structures PHARYNGEAL PHASE CHARACTERIZED BY: INITIATION OF PHARYNGEAL SWALLOW: bolus head in valleculae at first hyoid excursion SOFT PALATE ELEVATION: no bolus between soft palate and pharyngeal wall LARYNGEAL ELEVATION: partial superior movement of thyroid cartilage/partial approximation of arytenoids cartilage to epiglottic petiole ANTERIOR HYOID EXCURSION: complete anterior movement EPIGLOTTIC MOVEMENT: complete epiglottic inversion LARYNGEAL VESTIBULE CLOSURE AT HEIGHT OF SWALLOW: complete laryngeal vestibule closure with no air/contrast in laryngeal vestibule PHARYNGEAL STRIPPING WAVE: pharyngeal stripping wave present / diminished PHARYNGOESOPHAGEAL SEGMENT OPENING: complete distension and complete duration with no obstruction of flow TONGUE BASE RETRACTION: trace column of contrast between tongue base and posterior pharyngeal wall PHARYNGEAL RESIDUE: trace residue within or on pharyngeal structures ESOPHAGEAL PHASE CHARACTERIZED BY: ESOPHAGEAL BOLUS CLEARANCE IN THE UPRIGHT POSITION: complete clearance; esophageal coating EFFECTS OF TREATMENT STRATEGIES ATTEMPTED: Double swallow = effective Liquid via straw = effective Left bolus placement = moderately effective INTERPRETATION OF RESULTS: Patient presents with moderate to severe oral dysphagia (R13.11) and mild pharyngeal dyspahgia (R13.13). 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 Oral awareness improved w/ larger volume liquids boluses when presented via straw w/ 3-5 seconds oral holding prior to initiation of A-P bolus transfer. Significant oral discoordination appreciated during bolus prep. Moderate to severe mastication inefficiency noted w/ suboptimal lingual control d/t reduced intraporal strength resulted in bolus loss to floor of mouth (liquids only) and right buccal pocketing of all consistencies assessed, w/ subsequent poor oral clearance w/ oral residue post deglutition. The patient benefitted from a double swallow w/ all bites/sips to facilitate improve oral bolus clearance. Pharyngeal phase primarily marked by mildly delayed pharyngeal swallow onset timing (bolus head reaching the valleculae prior to swallow initiation resulting in delayed laryngeal vestibule closure and transient penetration of thin liquids w/ complete ejection. Good pharyngeal bolus clearance achieved despite diminished posterior pharyngeal stripping wave. The patient continues to be hypersomnolent at time of MBS. Study was completed immediately following noon meal, which allowed for excellent assessment the impact of fatigue on swallow performance. RECOMMENDATIONS: DIET TEXTURE RECOMMENDATIONS: Will recommend a pureed textured/thin liquid diet. COMPENSATORY STRATEGIES RECOMMENDED: DIRECT 1:1 supervision w/ verbal cues for adherence to the following compensatory strategies liquids via straw, double swallow for every bite/sip to facilitate improved oral clearance, straw placement to left, bolus placement to left, lingual sweep to clear pocketing, liquid wash, seated upright at 90 degrees during PO intake & remain upright for 30-60 minutes post meal (GERD precaution), and medications whole w/ purees. NEED FOR CONTINUED SKILLED DYSPHAGIA INTERVENTION: Patient requires intensive skilled speech-language intervention targeting: diet texture management w/ implementation of recommended compensatory strategies and oropharyngeal strengthening to improve labial control/strength, lingual control/strength, swallow onset timing. Strong emphasis to be placed on oral motor exercise program, as primary cause of dysphagia is attributed to oral pahse deficits. ADDITIONAL COMMENTS/RECOMMENDATIONS: Results and recommendations were discussed with the Patient immediately following MBS completion, with the Patient verbalizing understanding and agreement with all recommendations and education provided. IMAGE COUNT: [id number]
--- NOTE | 2018-09-18 13:30 | RAD_ITS ---
STUDY: SWALLOWING STUDY REASON FOR EXAM: Male, 68 years old. Dysphagia. CVA. TECHNIQUE: The examination was performed with Speech Pathology in attendance. Under fluoroscopic observation, the patient ingested thin barium, thick barium, barium pudding, and barium coated cracker. FLUOROSCOPY TIME: 2:51 minutes/seconds. [id number] images were obtained. RADIOLOGIST INVOLVEMENT: Radiologist was present and providing direct supervision. COMPARISON: None. FINDINGS: The following was observed during swallowing of the various mixtures of barium: Thin Barium: Transient penetration with ingestion of thin liquids. Thick Barium: There was no evidence of aspiration or laryngeal penetration. Barium Pudding: There was no evidence of aspiration or laryngeal penetration. Barium Coated Cracker: There was no evidence of aspiration or laryngeal penetration. RAD/Swallowing Function w/Video IMPRESSION: Transient penetration with ingestion of thin liquids. The swallow study findings were discussed with the patient by the speech pathologist at the conclusion of the examination. Please see speech pathology report for more information and recommendations. Electronically Signed: Jean Montoya MD at 14:19 EST Tel [phone], Service support ,
[2018-09-18] MEDS: Menthol/Lanolin/Calamine/Znox 113 GM Tube 1 APPLIC TOPICAL ×2 (14:51→22:12)
--- NOTE | 2018-09-18 15:13 | PN_ITS ---
Patient Problems: Active and Suspected Problems Diabetes mellitus, type II (Acute) Subjective: 68-year-old gentleman admitted with CVA involving the left cerebral middle artery Objective: GENERAL: not in distress HEENT: Atraumatic; moist oral mucosa EYES; Anicteric, Normal Conjunctiva NECK; supple, normal thyroid, RESPIRATORY: Diminished to auscultation bilaterally, CARDIOVASCULAR: Regular S1 S2, GI: soft, non-tender, normoactive bowel sounds, : No Renal angle tenderness; EXTREMITIES: No edema, no clubbing, no cyanosis. NEURO: Awake; right-sided hemiparesis SKIN: No Rash PSYCH; significant flat affect Vitals/I&O's: Vital Signs Temp Pulse Resp BP Pulse Ox 98.2 F 95 18 123/75 H 94 09/18/18 09:02 09/18/18 09:02 09/18/18 09:02 09/18/18 09:02 09/18/18 09:02 Oxygen Flow Rate (L/min) 2 Oxygen Delivery Method Room Air Weight: 98.4 kg Body Mass Index (BMI) 32.1 Finger Stick Blood Glucose 268 Intake and Output for Last 24 Hours 09/16/18 09/17/18 09/18/18 23:59 23:59 23:59 Intake Total 480 / 480 600 / 600 640 / 640 Balance 480 / 480 600 / 600 640 / 640 Microbiology Past 72 Hours 09/12/18 13:40 Urine Catheter - Catheter Urine Culture - Final Culture exhibits no growth. Laboratory Results 09/17/18 17:11: POC Glucose 230 H 09/17/18 20:32: POC Glucose 217 H 09/18/18 06:47: POC Glucose 152 H 09/18/18 11:28: POC Glucose 202 H Current Medications Acetaminophen (Tylenol) 650 mg PO Q8H PRN PRN PRN Reason: PAIN Aspirin (Ecotrin) 81 mg PO DAILY@0800 [facility] Last Admin: 09/18/18 08:20 Dose: 81 mg Atorvastatin Calcium (Lipitor) 80 mg PO QHS [facility] Last Admin: 09/17/18 20:25 Dose: 80 mg Bisacodyl (Dulcolax) 10 mg RECTAL .PRN X 1 PRN PRN Reason: Constipation Calamine/Phenol (Calmoseptine Ointment) 1 applic TOPICAL BID [facility]; Protocol Last Admin: 09/18/18 14:51 Dose: 1 applicatio Clopidogrel Bisulfate (Plavix) 75 mg PO DAILY [facility] Stop: 09/27/18 10:01 Last Admin: 09/18/18 08:21 Dose: 75 mg Enoxaparin Sodium (Lovenox) 40 mg SC DAILY@0600 [facility] Last Admin: 09/18/18 06:44 Dose: 40 mg Escitalopram Oxalate (Lexapro) 10 mg PO DAILY [facility] Insulin Human Lispro (Humalog Kwikpen (Bkc)) 0 unit SC ACHS [facility]; Protocol Last Admin: 09/18/18 12:22 Dose: 4 units Lisinopril (Zestril) 40 mg PO DAILY [facility] Last Admin: 09/18/18 08:21 Dose: 40 mg Magnesium Hydroxide (Milk Of Magnesia) 30 ml PO .PRN X 1 PRN PRN Reason: Constipation Metformin HCl (Glucophage) 1,000 mg PO BIDCM [facility] Last Admin: 09/18/18 08:20 Dose: 1,000 mg Multivitamins/Minerals (Multivitamin With Minerals) 1 tablet PO DAILY@0800 [facility] Last Admin: 09/18/18 08:21 Dose: 1 tablet Nystatin (Nystatin) 500,000 unit PO 4X/DAY [facility] Last Admin: 09/18/18 14:51 Dose: 500,000 unit Senna/Docusate Sodium (Senokot-S, Joy-Colace) 2 tablet PO BID PRN PRN PRN Reason: CONSTIPATION Medical Necessity - Tobacco Use Smoking Status: Never smoker Tobacco Use: Non-smoker Assessment/Plan All Active Problems Diabetes mellitus, type II (Acute) 68-year-old gentleman admitted with CVA involving the left cerebral middle artery 1. Physical debility secondary to acute CVA involving the left middle cerebral artery. MRI demonstrated acute lacunar infarct involving deep white matter tract in left frontal parietal region and body of caudate nucleus extending inferior medially into the left cerebral peduncle. Patient was transferred from [facility] to [facility] however patient was managed with only medical therapy and discharged back to the inpatient rehab unit where she is currently undergoing therapy 2. Diabetes mellitus type 2 blood glucose controlled home regimen continued with sliding scale coverage 3. Hypertension-blood pressure controlled, home medications continued with dose adjustment as needed 4. Dyslipidemia-patient is on statin therapy, continued at home dose 5. Obesity with BMI of 31.9 6. DVT prophylaxis SC Lovenox Code Visit Inpatient E&M: 01438 Subs Hosp L2
--- NOTE | 2018-09-18 15:29 | PCM.PN.NEU ---
Patient Problems: Active and Suspected Problems Diabetes mellitus, type II (Acute) Subjective: Patient seen and examined. Still very sleepy at times, he is on Seroquel at [facility] d/c and see if he improves. Tolerating therapy. Denies any SOB, headaches, dizziness or chest pains. - Physical Exam General: Alert, Oriented x3, Cooperative HEENT: Atraumatic, PERRLA, EOMI, Normocephalic Neck: Supple, No JVD, Negative Carotid Bruits Lungs: Clear to auscultation, Normal air movement Cardiovascular: Regular rate, No murmurs Abdomen: Bowel Sounds Present, Soft, Non Tender Extremities: No edema, Capillary Refill Less than 3 Seconds Skin: No rashes, No breakdown Musculoskeletal: No Tenderness to Palpation of Joints or Extremities Neurological: Cranial nerves II-XII grossly intact Psych/Mental Status: Normal Affect, Appropriate, Alert and oriented to time, place, person, mood and affect Vital Signs Temp Pulse Resp BP Pulse Ox 98.2 F 95 18 123/75 H 94 09/18/18 09:02 09/18/18 09:02 09/18/18 09:02 09/18/18 09:02 09/18/18 09:02 Oxygen Flow Rate (L/min) 2 Oxygen Delivery Method Room Air Weight: 98.4 kg Body Mass Index (BMI) 32.1 Finger Stick Blood Glucose 268 Intake and Output for Last 24 Hours 09/16/18 09/17/18 09/18/18 23:59 23:59 23:59 Intake Total 480 / 480 600 / 600 640 / 640 Balance 480 / 480 600 / 600 640 / 640 Microbiology Past 72 Hours 09/12/18 13:40 Urine Culture - Final Urine Catheter - Catheter Culture exhibits no growth. POC Glucose 09/18/18 09/18/18 09/17/18 11:28 06:47 20:32 POC Glucose 202 H 152 H 217 H 09/17/18 17:11 POC Glucose 230 H Active Medications Acetaminophen (Tylenol) 650 mg PO Q8H PRN PRN PRN Reason: PAIN Aspirin (Ecotrin) 81 mg PO DAILY@0800 [facility] Last Admin: 09/18/18 08:20 Dose: 81 mg Atorvastatin Calcium (Lipitor) 80 mg PO QHS [facility] Last Admin: 09/17/18 20:25 Dose: 80 mg Bisacodyl (Dulcolax) 10 mg RECTAL .PRN X 1 PRN PRN Reason: Constipation Calamine/Phenol (Calmoseptine Ointment) 1 applic TOPICAL BID [facility]; Protocol Last Admin: 09/18/18 14:51 Dose: 1 applicatio Clopidogrel Bisulfate (Plavix) 75 mg PO DAILY [facility] Stop: 09/27/18 10:01 Last Admin: 09/18/18 08:21 Dose: 75 mg Enoxaparin Sodium (Lovenox) 40 mg SC DAILY@0600 [facility] Last Admin: 09/18/18 06:44 Dose: 40 mg Escitalopram Oxalate (Lexapro) 10 mg PO DAILY [facility] Insulin Human Lispro (Humalog Kwikpen (Bkc)) 0 unit SC ACHS [facility]; Protocol Last Admin: 09/18/18 12:22 Dose: 4 units Lisinopril (Zestril) 40 mg PO DAILY [facility] Last Admin: 09/18/18 08:21 Dose: 40 mg Magnesium Hydroxide (Milk Of Magnesia) 30 ml PO .PRN X 1 PRN PRN Reason: Constipation Metformin HCl (Glucophage) 1,000 mg PO BIDCM [facility] Last Admin: 09/18/18 08:20 Dose: 1,000 mg Multivitamins/Minerals (Multivitamin With Minerals) 1 tablet PO DAILY@0800 [facility] Last Admin: 09/18/18 08:21 Dose: 1 tablet Nystatin (Nystatin) 500,000 unit PO 4X/DAY [facility] Last Admin: 09/18/18 14:51 Dose: 500,000 unit Senna/Docusate Sodium (Senokot-S, Joy-Colace) 2 tablet PO BID PRN PRN PRN Reason: CONSTIPATION Medical Necessity - Tobacco Use Smoking Status: Never smoker Tobacco Use: Non-smoker Assessment/Plan All Active Problems Diabetes mellitus, type II (Acute) 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 Goal of rehab is sikh of prior level of functional independence. Complicated by diabetes and hypertension. He has new hypersomnia but previous to his stroke he did not have hypersomnia. Plan: Physical therapy for gait and balance Occupational Therapy for ADLs Speech therapy Bowel protocol PRN analgesics PRN sleep aid Continue anti-glycemic agents and follow Continue antihypertensives and follow Statin therapy, Plavix, and aspirin Circadian disruption: Seroquel qhs
[2018-09-18 15:31] VITALS: BMI 32.1
--- NOTE | 2018-09-18 15:35 | PN.NEURO_ITS ---
Patient Problems: Active and Suspected Problems Diabetes mellitus, type II (Acute) Subjective: Patient seen and examined. Still very sleepy at times, he is on Seroquel at [facility] d/c and see if he improves. Tolerating therapy. Denies any SOB, headaches, dizziness or chest pains. - Physical Exam General: Alert, Oriented x3, Cooperative HEENT: Atraumatic, PERRLA, EOMI, Normocephalic Neck: Supple, No JVD, Negative Carotid Bruits Lungs: Clear to auscultation, Normal air movement Cardiovascular: Regular rate, No murmurs Abdomen: Bowel Sounds Present, Soft, Non Tender Extremities: No edema, Capillary Refill Less than 3 Seconds Skin: No rashes, No breakdown Musculoskeletal: No Tenderness to Palpation of Joints or Extremities Neurological: Cranial nerves II-XII grossly intact Psych/Mental Status: Normal Affect, Appropriate, Alert and oriented to time, place, person, mood and affect Vital Signs Temp Pulse Resp BP Pulse Ox 98.2 F 95 18 123/75 H 94 09/18/18 09:02 09/18/18 09:02 09/18/18 09:02 09/18/18 09:02 09/18/18 09:02 Oxygen Flow Rate (L/min) 2 Oxygen Delivery Method Room Air Weight: 98.4 kg Body Mass Index (BMI) 32.1 Finger Stick Blood Glucose 268 Intake and Output for Last 24 Hours 09/16/18 09/17/18 09/18/18 23:59 23:59 23:59 Intake Total 480 / 480 600 / 600 640 / 640 Balance 480 / 480 600 / 600 640 / 640 Microbiology Past 72 Hours 09/12/18 13:40 Urine Culture - Final Urine Catheter - Catheter Culture exhibits no growth. POC Glucose 09/18/18 09/18/18 09/17/18 11:28 06:47 20:32 POC Glucose 202 H 152 H 217 H 09/17/18 17:11 POC Glucose 230 H Active Medications Acetaminophen (Tylenol) 650 mg PO Q8H PRN PRN PRN Reason: PAIN Aspirin (Ecotrin) 81 mg PO DAILY@0800 [facility] Last Admin: 09/18/18 08:20 Dose: 81 mg Atorvastatin Calcium (Lipitor) 80 mg PO QHS [facility] Last Admin: 09/17/18 20:25 Dose: 80 mg Bisacodyl (Dulcolax) 10 mg RECTAL .PRN X 1 PRN PRN Reason: Constipation Calamine/Phenol (Calmoseptine Ointment) 1 applic TOPICAL BID [facility]; Protocol Last Admin: 09/18/18 14:51 Dose: 1 applicatio Clopidogrel Bisulfate (Plavix) 75 mg PO DAILY [facility] Stop: 09/27/18 10:01 Last Admin: 09/18/18 08:21 Dose: 75 mg Enoxaparin Sodium (Lovenox) 40 mg SC DAILY@0600 [facility] Last Admin: 09/18/18 06:44 Dose: 40 mg Escitalopram Oxalate (Lexapro) 10 mg PO DAILY [facility] Insulin Human Lispro (Humalog Kwikpen (Bkc)) 0 unit SC ACHS [facility]; Protocol Last Admin: 09/18/18 12:22 Dose: 4 units Lisinopril (Zestril) 40 mg PO DAILY [facility] Last Admin: 09/18/18 08:21 Dose: 40 mg Magnesium Hydroxide (Milk Of Magnesia) 30 ml PO .PRN X 1 PRN PRN Reason: Constipation Metformin HCl (Glucophage) 1,000 mg PO BIDCM [facility] Last Admin: 09/18/18 08:20 Dose: 1,000 mg Multivitamins/Minerals (Multivitamin With Minerals) 1 tablet PO DAILY@0800 [facility] Last Admin: 09/18/18 08:21 Dose: 1 tablet Nystatin (Nystatin) 500,000 unit PO 4X/DAY [facility] Last Admin: 09/18/18 14:51 Dose: 500,000 unit Senna/Docusate Sodium (Senokot-S, Joy-Colace) 2 tablet PO BID PRN PRN PRN Reason: CONSTIPATION Medical Necessity - Tobacco Use Smoking Status: Never smoker Tobacco Use: Non-smoker Assessment/Plan All Active Problems Diabetes mellitus, type II (Acute) 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 Goal of rehab is taoist of prior level of functional independence. Complicated by diabetes and hypertension. He has new hypersomnia but previous to his stroke he did not have hypersomnia. Plan: Physical therapy for gait and balance Occupational Therapy for ADLs Speech therapy Bowel protocol PRN analgesics PRN sleep aid Continue anti-glycemic agents and follow Continue antihypertensives and follow Statin therapy, Plavix, and aspirin Circadian disruption: Seroquel qhs
[2018-09-18 16:48] LABS: Albumin, Serum 3.2 g/dL (3.2-5.0); BUN 23 mg/dL (7-18); BUN/Creat Ratio 26.8 RATIO (10-20); Calcium,Total 8.9 mg/dL (8.5-10.1); Chloride 103 mmol/L (98-107); Creatinine, Serum 0.86 mg/dL (0.70-1.30); EST Glomerular Filtration Rate 94 mL/min (>60); Est Glom Filt Rate - Afr Amer 114 mL/min (>60); Glucose 215 mg/dL (74-106); Phosphorus 3.5 mg/dL (2.5-4.9); Potassium 4.6 mmol/L (3.5-5.1); Sodium Level 138 mmol/L (136-145)
[2018-09-18 17:00] LABS: Bedside Glucose 220 mg/dL (70-110)
[2018-09-18 18:07] VITALS: BP 129/75; PULSE 105; RESP 18; TEMP 36.9; O2SAT 93
[2018-09-18 19:53] VITALS: BP 129/75; PULSE 105; RESP 18; TEMP 36.9; O2SAT 93
[2018-09-18] MEDS: Atorvastatin Calcium 80 MG Tablet PO (22:12)
[2018-09-18 22:36] LABS: Bedside Glucose 249 mg/dL (70-110)
[2018-09-19 01:38] VITALS: BMI 32.1
[2018-09-19] MEDS: Enoxaparin 40 MG/0.4 ML Syringe SC (05:23)
[2018-09-19 06:46] LABS: Bedside Glucose 163 mg/dL (70-110)
[2018-09-19 07:52] VITALS: BP 131/68; PULSE 96; RESP 16; TEMP 36.4; O2SAT 92
[2018-09-19] MEDS: Aspirin E.C. 81 MG Tablet PO (08:18)
[2018-09-19] MEDS: metFORMIN HCl 1,000 MG Tablet 1000 MG PO ×2 (08:18→17:14)
[2018-09-19] MEDS: Clopidogrel Bisulfate 75 MG Tablet PO (08:19)
[2018-09-19] MEDS: NYSTATIN 500,000 UNIT/5 ML UDC 500000 UNIT PO ×4 (08:19→20:28)
[2018-09-19] MEDS: Lisinopril 40 MG Tablet PO (08:19)
[2018-09-19] MEDS: Escitalopram Oxalate 10 MG Tablet PO (08:19)
[2018-09-19] MEDS: Insulin Lispro 100 UNIT/ML INSULN.PEN SC ×4 (08:19→20:32)
[2018-09-19] MEDS: Multivitamins,Ther W-Minerals Tablet 1 TABLET PO (08:19)
[2018-09-19] MEDS: Menthol/Lanolin/Calamine/Znox 113 GM Tube 1 APPLIC TOPICAL ×2 (08:20→20:33)
[2018-09-19 11:11] LABS: Bedside Glucose 260 mg/dL (70-110)
[2018-09-19 13:52] VITALS: BMI 32.1
[2018-09-19 16:55] LABS: Bedside Glucose 208 mg/dL (70-110)
[2018-09-19 20:20] VITALS: BP 130/73; PULSE 98; RESP 14; TEMP 37.1; O2SAT 93; BMI 32.1
[2018-09-19] MEDS: Atorvastatin Calcium 80 MG Tablet PO (20:28)
[2018-09-19 21:21] LABS: Bedside Glucose 233 mg/dL (70-110)
--- NOTE | 2018-09-20 02:20 | NURSING ---
Reviewed and agree with [employer] documentation and [facility] charting
[2018-09-20] MEDS: Enoxaparin 40 MG/0.4 ML Syringe SC (05:33)
[2018-09-20 07:01] VITALS: BP 142/84; PULSE 96; RESP 16; TEMP 37; O2SAT 94
[2018-09-20 07:21] LABS: Bedside Glucose 171 mg/dL (70-110)
[2018-09-20] MEDS: Insulin Lispro 100 UNIT/ML INSULN.PEN SC ×4 (08:17→20:12)
[2018-09-20] MEDS: Aspirin E.C. 81 MG Tablet PO (08:17)
[2018-09-20] MEDS: Multivitamins,Ther W-Minerals Tablet 1 TABLET PO (08:17)
[2018-09-20] MEDS: metFORMIN HCl 1,000 MG Tablet 1000 MG PO ×2 (08:17→17:07)
[2018-09-20] MEDS: Escitalopram Oxalate 10 MG Tablet PO (08:18)
[2018-09-20] MEDS: Lisinopril 40 MG Tablet PO (08:18)
[2018-09-20] MEDS: Clopidogrel Bisulfate 75 MG Tablet PO (08:18)
[2018-09-20] MEDS: NYSTATIN 500,000 UNIT/5 ML UDC 500000 UNIT PO ×4 (08:18→20:13)
[2018-09-20] MEDS: Menthol/Lanolin/Calamine/Znox 113 GM Tube 1 APPLIC TOPICAL ×2 (08:33→20:12)
--- NOTE | 2018-09-20 09:54 | PCM.PN.NEU ---
Patient Problems: Active and Suspected Problems Diabetes mellitus, type II (Acute) Subjective: Patient seen and examined. Continues to be hypersomniac, nightly Seroquel was d/c two days ago. Tolerating therapy. Denies any shortness of breath, chest pains or blurry vision. - Physical Exam General: Alert, Oriented x3, Cooperative HEENT: Atraumatic, PERRLA, EOMI, Normocephalic Neck: Supple, No JVD, Negative Carotid Bruits Lungs: Clear to auscultation, Normal air movement Cardiovascular: Regular rate, No murmurs Abdomen: Bowel Sounds Present, Soft, Non Tender Extremities: No edema, Capillary Refill Less than 3 Seconds Skin: No rashes, No breakdown Musculoskeletal: No Tenderness to Palpation of Joints or Extremities Neurological: Cranial nerves II-XII grossly intact Psych/Mental Status: Normal Affect, Appropriate, Alert and oriented to time, place, person, mood and affect Vital Signs Temp Pulse Resp BP Pulse Ox 98.6 F 96 16 142/84 H 94 09/20/18 07:01 09/20/18 07:01 09/20/18 07:01 09/20/18 07:01 09/20/18 07:01 Oxygen Flow Rate (L/min) 2 Oxygen Delivery Method Room Air Weight: 96 kg Body Mass Index (BMI) 32.1 Finger Stick Blood Glucose 268 Intake and Output for Last 24 Hours 09/18/18 09/19/18 09/20/18 23:59 23:59 23:59 Intake Total 880 / 880 480 / 480 360 / 360 Balance 880 / 880 480 / 480 360 / 360 POC Glucose 09/20/18 09/19/18 09/19/18 07:00 20:30 16:43 POC Glucose 171 H 233 H 208 H 09/19/18 11:03 POC Glucose 260 H Active Medications Acetaminophen (Tylenol) 650 mg PO Q8H PRN PRN PRN Reason: PAIN Aspirin (Ecotrin) 81 mg PO DAILY@0800 [facility] Last Admin: 09/20/18 08:17 Dose: 81 mg Atorvastatin Calcium (Lipitor) 80 mg PO QHS [facility] Last Admin: 09/19/18 20:28 Dose: 80 mg Bisacodyl (Dulcolax) 10 mg RECTAL .PRN X 1 PRN PRN Reason: Constipation Calamine/Phenol (Calmoseptine Ointment) 1 applic TOPICAL BID [facility]; Protocol Last Admin: 09/20/18 08:33 Dose: 1 applicatio Clopidogrel Bisulfate (Plavix) 75 mg PO DAILY [facility] Stop: 09/27/18 10:01 Last Admin: 09/20/18 08:18 Dose: 75 mg Enoxaparin Sodium (Lovenox) 40 mg SC DAILY@0600 [facility] Last Admin: 09/20/18 05:33 Dose: 40 mg Escitalopram Oxalate (Lexapro) 10 mg PO DAILY [facility] Last Admin: 09/20/18 08:18 Dose: 10 mg Insulin Human Lispro (Humalog Kwikpen (Bkc)) 0 unit SC ACHS [facility]; Protocol Last Admin: 09/20/18 08:17 Dose: 2 units Lisinopril (Zestril) 40 mg PO DAILY [facility] Last Admin: 09/20/18 08:18 Dose: 40 mg Magnesium Hydroxide (Milk Of Magnesia) 30 ml PO .PRN X 1 PRN PRN Reason: Constipation Metformin HCl (Glucophage) 1,000 mg PO BIDCM [facility] Last Admin: 09/20/18 08:17 Dose: 1,000 mg Multivitamins/Minerals (Multivitamin With Minerals) 1 tablet PO DAILY@0800 [facility] Last Admin: 09/20/18 08:17 Dose: 1 tablet Nystatin (Nystatin) 500,000 unit PO 4X/DAY [facility] Last Admin: 09/20/18 08:18 Dose: 500,000 unit Senna/Docusate Sodium (Senokot-S, Joy-Colace) 2 tablet PO BID PRN PRN PRN Reason: CONSTIPATION Medical Necessity - Tobacco Use Smoking Status: Never smoker Tobacco Use: Non-smoker Assessment/Plan All Active Problems Diabetes mellitus, type II (Acute) 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 Goal of rehab is buddhism of prior level of functional independence. Complicated by diabetes and hypertension. He has new hypersomnia but previous to his stroke he did not have hypersomnia. Plan: Physical therapy for gait and balance Occupational Therapy for ADLs Speech therapy Bowel protocol PRN analgesics PRN sleep aid Continue anti-glycemic agents and follow Continue antihypertensives and follow Statin therapy, Plavix, and aspirin Circadian disruption: Seroquel qhs => d/c Seroquel Hypersomniac during the day.
--- NOTE | 2018-09-20 09:58 | PN.NEURO_ITS ---
Patient Problems: Active and Suspected Problems Diabetes mellitus, type II (Acute) Subjective: Patient seen and examined. Continues to be hypersomniac, nightly Seroquel was d/c two days ago. Tolerating therapy. Denies any shortness of breath, chest pains or blurry vision. - Physical Exam General: Alert, Oriented x3, Cooperative HEENT: Atraumatic, PERRLA, EOMI, Normocephalic Neck: Supple, No JVD, Negative Carotid Bruits Lungs: Clear to auscultation, Normal air movement Cardiovascular: Regular rate, No murmurs Abdomen: Bowel Sounds Present, Soft, Non Tender Extremities: No edema, Capillary Refill Less than 3 Seconds Skin: No rashes, No breakdown Musculoskeletal: No Tenderness to Palpation of Joints or Extremities Neurological: Cranial nerves II-XII grossly intact Psych/Mental Status: Normal Affect, Appropriate, Alert and oriented to time, place, person, mood and affect Vital Signs Temp Pulse Resp BP Pulse Ox 98.6 F 96 16 142/84 H 94 09/20/18 07:01 09/20/18 07:01 09/20/18 07:01 09/20/18 07:01 09/20/18 07:01 Oxygen Flow Rate (L/min) 2 Oxygen Delivery Method Room Air Weight: 96 kg Body Mass Index (BMI) 32.1 Finger Stick Blood Glucose 268 Intake and Output for Last 24 Hours 09/18/18 09/19/18 09/20/18 23:59 23:59 23:59 Intake Total 880 / 880 480 / 480 360 / 360 Balance 880 / 880 480 / 480 360 / 360 POC Glucose 09/20/18 09/19/18 09/19/18 07:00 20:30 16:43 POC Glucose 171 H 233 H 208 H 09/19/18 11:03 POC Glucose 260 H Active Medications Acetaminophen (Tylenol) 650 mg PO Q8H PRN PRN PRN Reason: PAIN Aspirin (Ecotrin) 81 mg PO DAILY@0800 [facility] Last Admin: 09/20/18 08:17 Dose: 81 mg Atorvastatin Calcium (Lipitor) 80 mg PO QHS [facility] Last Admin: 09/19/18 20:28 Dose: 80 mg Bisacodyl (Dulcolax) 10 mg RECTAL .PRN X 1 PRN PRN Reason: Constipation Calamine/Phenol (Calmoseptine Ointment) 1 applic TOPICAL BID [facility]; Protocol Last Admin: 09/20/18 08:33 Dose: 1 applicatio Clopidogrel Bisulfate (Plavix) 75 mg PO DAILY [facility] Stop: 09/27/18 10:01 Last Admin: 09/20/18 08:18 Dose: 75 mg Enoxaparin Sodium (Lovenox) 40 mg SC DAILY@0600 [facility] Last Admin: 09/20/18 05:33 Dose: 40 mg Escitalopram Oxalate (Lexapro) 10 mg PO DAILY [facility] Last Admin: 09/20/18 08:18 Dose: 10 mg Insulin Human Lispro (Humalog Kwikpen (Bkc)) 0 unit SC ACHS [facility]; Protocol Last Admin: 09/20/18 08:17 Dose: 2 units Lisinopril (Zestril) 40 mg PO DAILY [facility] Last Admin: 09/20/18 08:18 Dose: 40 mg Magnesium Hydroxide (Milk Of Magnesia) 30 ml PO .PRN X 1 PRN PRN Reason: Constipation Metformin HCl (Glucophage) 1,000 mg PO BIDCM [facility] Last Admin: 09/20/18 08:17 Dose: 1,000 mg Multivitamins/Minerals (Multivitamin With Minerals) 1 tablet PO DAILY@0800 [facility] Last Admin: 09/20/18 08:17 Dose: 1 tablet Nystatin (Nystatin) 500,000 unit PO 4X/DAY [facility] Last Admin: 09/20/18 08:18 Dose: 500,000 unit Senna/Docusate Sodium (Senokot-S, Joy-Colace) 2 tablet PO BID PRN PRN PRN Reason: CONSTIPATION Medical Necessity - Tobacco Use Smoking Status: Never smoker Tobacco Use: Non-smoker Assessment/Plan All Active Problems Diabetes mellitus, type II (Acute) 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 Goal of rehab is catholic of prior level of functional independence. Complicated by diabetes and hypertension. He has new hypersomnia but previous to his stroke he did not have hypersomnia. Plan: Physical therapy for gait and balance Occupational Therapy for ADLs Speech therapy Bowel protocol PRN analgesics PRN sleep aid Continue anti-glycemic agents and follow Continue antihypertensives and follow Statin therapy, Plavix, and aspirin Circadian disruption: Seroquel qhs => d/c Seroquel Hypersomniac during the day.
[2018-09-20 12:06] LABS: Bedside Glucose 244 mg/dL (70-110)
--- NOTE | 2018-09-20 13:38 | PCM.PN.HOSP ---
Patient Problems: Active and Suspected Problems Diabetes mellitus, type II (Acute) Subjective: Patient seen remains depressed with a significant flat affect initiated low-dose SSRI Objective: GENERAL: not in distress HEENT: Atraumatic; moist oral mucosa EYES; Anicteric, Normal Conjunctiva NECK; supple, normal thyroid, RESPIRATORY: Diminished to auscultation bilaterally, CARDIOVASCULAR: Regular S1 S2, GI: soft, non-tender, normoactive bowel sounds, : No Renal angle tenderness; EXTREMITIES: No edema, no clubbing, no cyanosis. NEURO: Awake; right-sided hemiparesis SKIN: No Rash PSYCH; significant flat affect Vitals/I&O's: Vital Signs Temp Pulse Resp BP Pulse Ox 98.6 F 96 16 142/84 H 94 09/20/18 07:01 09/20/18 07:01 09/20/18 07:01 09/20/18 07:01 09/20/18 07:01 Oxygen Flow Rate (L/min) 2 Oxygen Delivery Method Room Air Weight: 96 kg Body Mass Index (BMI) 32.1 Finger Stick Blood Glucose 268 Intake and Output for Last 24 Hours 09/18/18 09/19/18 09/20/18 23:59 23:59 23:59 Intake Total 880 / 880 480 / 480 720 / 720 Balance 880 / 880 480 / 480 720 / 720 Laboratory Results 09/19/18 16:43: POC Glucose 208 H 09/19/18 20:30: POC Glucose 233 H 09/20/18 07:00: POC Glucose 171 H 09/20/18 11:48: POC Glucose 244 H Current Medications Acetaminophen (Tylenol) 650 mg PO Q8H PRN PRN PRN Reason: PAIN Aspirin (Ecotrin) 81 mg PO DAILY@0800 [facility] Last Admin: 09/20/18 08:17 Dose: 81 mg Atorvastatin Calcium (Lipitor) 80 mg PO QHS [facility] Last Admin: 09/19/18 20:28 Dose: 80 mg Bisacodyl (Dulcolax) 10 mg RECTAL .PRN X 1 PRN PRN Reason: Constipation Calamine/Phenol (Calmoseptine Ointment) 1 applic TOPICAL BID [facility]; Protocol Last Admin: 09/20/18 08:33 Dose: 1 applicatio Clopidogrel Bisulfate (Plavix) 75 mg PO DAILY [facility] Stop: 09/27/18 10:01 Last Admin: 09/20/18 08:18 Dose: 75 mg Enoxaparin Sodium (Lovenox) 40 mg SC DAILY@0600 [facility] Last Admin: 09/20/18 05:33 Dose: 40 mg Escitalopram Oxalate (Lexapro) 10 mg PO DAILY [facility] Last Admin: 09/20/18 08:18 Dose: 10 mg Insulin Human Lispro (Humalog Kwikpen (Bkc)) 0 unit SC ACHS [facility]; Protocol Last Admin: 09/20/18 12:24 Dose: 4 units Lisinopril (Zestril) 40 mg PO DAILY [facility] Last Admin: 09/20/18 08:18 Dose: 40 mg Magnesium Hydroxide (Milk Of Magnesia) 30 ml PO .PRN X 1 PRN PRN Reason: Constipation Metformin HCl (Glucophage) 1,000 mg PO BIDCM [facility] Last Admin: 09/20/18 08:17 Dose: 1,000 mg Multivitamins/Minerals (Multivitamin With Minerals) 1 tablet PO DAILY@0800 [facility] Last Admin: 09/20/18 08:17 Dose: 1 tablet Nystatin (Nystatin) 500,000 unit PO 4X/DAY [facility] Last Admin: 09/20/18 08:18 Dose: 500,000 unit Senna/Docusate Sodium (Senokot-S, Joy-Colace) 2 tablet PO BID PRN PRN PRN Reason: CONSTIPATION Medical Necessity - Tobacco Use Smoking Status: Never smoker Tobacco Use: Non-smoker Assessment/Plan All Active Problems Diabetes mellitus, type II (Acute) 68-year-old gentleman admitted with CVA involving the left cerebral middle artery 1. Physical debility secondary to acute CVA involving the left middle cerebral artery. MRI demonstrated acute lacunar infarct involving deep white matter tract in left frontal parietal region and body of caudate nucleus extending inferior medially into the left cerebral peduncle. Patient was transferred from [facility] to [facility] however patient was managed with only medical therapy and discharged back to the inpatient rehab unit where he is currently undergoing therapy 2. Diabetes mellitus type 2 blood glucose controlled home regimen continued with sliding scale coverage 3. Hypertension-blood pressure controlled, home medications continued with dose adjustment as needed 4. Dyslipidemia-patient is on statin therapy, continued at home dose 5. Obesity with BMI of 31.9 6. DVT prophylaxis SC Lovenox 7. Severe depression started on SSRI Code Visit Inpatient E&M: 43075 Subs Hosp L2
--- NOTE | 2018-09-20 13:42 | PN_ITS ---
Patient Problems: Active and Suspected Problems Diabetes mellitus, type II (Acute) Subjective: Patient seen remains depressed with a significant flat affect initiated low-dose SSRI Objective: GENERAL: not in distress HEENT: Atraumatic; moist oral mucosa EYES; Anicteric, Normal Conjunctiva NECK; supple, normal thyroid, RESPIRATORY: Diminished to auscultation bilaterally, CARDIOVASCULAR: Regular S1 S2, GI: soft, non-tender, normoactive bowel sounds, : No Renal angle tenderness; EXTREMITIES: No edema, no clubbing, no cyanosis. NEURO: Awake; right-sided hemiparesis SKIN: No Rash PSYCH; significant flat affect Vitals/I&O's: Vital Signs Temp Pulse Resp BP Pulse Ox 98.6 F 96 16 142/84 H 94 09/20/18 07:01 09/20/18 07:01 09/20/18 07:01 09/20/18 07:01 09/20/18 07:01 Oxygen Flow Rate (L/min) 2 Oxygen Delivery Method Room Air Weight: 96 kg Body Mass Index (BMI) 32.1 Finger Stick Blood Glucose 268 Intake and Output for Last 24 Hours 09/18/18 09/19/18 09/20/18 23:59 23:59 23:59 Intake Total 880 / 880 480 / 480 720 / 720 Balance 880 / 880 480 / 480 720 / 720 Laboratory Results 09/19/18 16:43: POC Glucose 208 H 09/19/18 20:30: POC Glucose 233 H 09/20/18 07:00: POC Glucose 171 H 09/20/18 11:48: POC Glucose 244 H Current Medications Acetaminophen (Tylenol) 650 mg PO Q8H PRN PRN PRN Reason: PAIN Aspirin (Ecotrin) 81 mg PO DAILY@0800 [facility] Last Admin: 09/20/18 08:17 Dose: 81 mg Atorvastatin Calcium (Lipitor) 80 mg PO QHS [facility] Last Admin: 09/19/18 20:28 Dose: 80 mg Bisacodyl (Dulcolax) 10 mg RECTAL .PRN X 1 PRN PRN Reason: Constipation Calamine/Phenol (Calmoseptine Ointment) 1 applic TOPICAL BID [facility]; Protocol Last Admin: 09/20/18 08:33 Dose: 1 applicatio Clopidogrel Bisulfate (Plavix) 75 mg PO DAILY [facility] Stop: 09/27/18 10:01 Last Admin: 09/20/18 08:18 Dose: 75 mg Enoxaparin Sodium (Lovenox) 40 mg SC DAILY@0600 [facility] Last Admin: 09/20/18 05:33 Dose: 40 mg Escitalopram Oxalate (Lexapro) 10 mg PO DAILY [facility] Last Admin: 09/20/18 08:18 Dose: 10 mg Insulin Human Lispro (Humalog Kwikpen (Bkc)) 0 unit SC ACHS [facility]; Protocol Last Admin: 09/20/18 12:24 Dose: 4 units Lisinopril (Zestril) 40 mg PO DAILY [facility] Last Admin: 09/20/18 08:18 Dose: 40 mg Magnesium Hydroxide (Milk Of Magnesia) 30 ml PO .PRN X 1 PRN PRN Reason: Constipation Metformin HCl (Glucophage) 1,000 mg PO BIDCM [facility] Last Admin: 09/20/18 08:17 Dose: 1,000 mg Multivitamins/Minerals (Multivitamin With Minerals) 1 tablet PO DAILY@0800 [facility] Last Admin: 09/20/18 08:17 Dose: 1 tablet Nystatin (Nystatin) 500,000 unit PO 4X/DAY [facility] Last Admin: 09/20/18 08:18 Dose: 500,000 unit Senna/Docusate Sodium (Senokot-S, Joy-Colace) 2 tablet PO BID PRN PRN PRN Reason: CONSTIPATION Medical Necessity - Tobacco Use Smoking Status: Never smoker Tobacco Use: Non-smoker Assessment/Plan All Active Problems Diabetes mellitus, type II (Acute) 68-year-old gentleman admitted with CVA involving the left cerebral middle artery 1. Physical debility secondary to acute CVA involving the left middle cerebral artery. MRI demonstrated acute lacunar infarct involving deep white matter tract in left frontal parietal region and body of caudate nucleus extending inferior medially into the left cerebral peduncle. Patient was transferred from [facility] to [facility] however patient was managed with only medical therapy and discharged back to the inpatient rehab unit where he is currently undergoing therapy 2. Diabetes mellitus type 2 blood glucose controlled home regimen continued with sliding scale coverage 3. Hypertension-blood pressure controlled, home medications continued with dose adjustment as needed 4. Dyslipidemia-patient is on statin therapy, continued at home dose 5. Obesity with BMI of 31.9 6. DVT prophylaxis SC Lovenox 7. Severe depression started on SSRI Code Visit Inpatient E&M: 20127 Subs Hosp L2
[2018-09-20 16:21] LABS: Bedside Glucose 256 mg/dL (70-110)
[2018-09-20 17:00] VITALS: BMI 32.1
[2018-09-20] MEDS: Atorvastatin Calcium 80 MG Tablet PO (20:13)
[2018-09-20 20:20] VITALS: BP 156/85; PULSE 91; RESP 18; TEMP 36.7; O2SAT 95
[2018-09-20 20:51] LABS: Bedside Glucose 289 mg/dL (70-110)
[2018-09-20 23:58] VITALS: BMI 32.1
--- NOTE | 2018-09-21 03:57 | NURSING ---
Reviewed and agree with UTILITY MECHANIC documentation and FIMs charted
[2018-09-21] MEDS: Enoxaparin 40 MG/0.4 ML Syringe SC (06:27)
[2018-09-21 07:10] LABS: Bedside Glucose 165 mg/dL (70-110)
[2018-09-21 08:01] VITALS: BP 153/88; PULSE 97; RESP 16; TEMP 36.6; O2SAT 93
[2018-09-21] MEDS: Menthol/Lanolin/Calamine/Znox 113 GM Tube 1 APPLIC TOPICAL ×2 (08:05→20:04)
[2018-09-21] MEDS: Clopidogrel Bisulfate 75 MG Tablet PO (08:06)
[2018-09-21] MEDS: Multivitamins,Ther W-Minerals Tablet 1 TABLET PO (08:06)
[2018-09-21] MEDS: Insulin Lispro 100 UNIT/ML INSULN.PEN SC ×4 (08:06→20:05)
[2018-09-21] MEDS: Aspirin E.C. 81 MG Tablet PO (08:06)
[2018-09-21] MEDS: metFORMIN HCl 1,000 MG Tablet 1000 MG PO ×2 (08:06→17:13)
[2018-09-21] MEDS: Lisinopril 40 MG Tablet PO (08:06)
[2018-09-21] MEDS: Escitalopram Oxalate 10 MG Tablet PO (08:06)
[2018-09-21] MEDS: NYSTATIN 500,000 UNIT/5 ML UDC 500000 UNIT PO ×4 (08:18→20:05)
--- NOTE | 2018-09-21 10:15 | CASEMGMT ---
Team meeting held. Patient present as well as patient spouse. No discharge date set at this time. Patient to discharge on or by 10/01/18. Patient to continue with further care and treatment on the Inpatient Rehab Unit. Patient spouse aware of concerns of patient returning to home and that staff is recommending for patient to transition to a retirement home for further care and treatment. Patient spouse voicing understanding and meeting with this social media specialist for awhile after the meeting to discuss further penitentiary options. This social media specialist providing spouse with list of retirement facilities within the area as patient and patient spouse live local. Patient spouse planning to look over list and decide on a few options. Social work to follow up with patient spouse early next week on choices. Patient spouse becoming tearful during conversation as patient spouse has not had a positive experience with nursing homes in the past, emotional support, active listening and moments of silence offered. Patient spouse thanking this social media specialist. Will continue to follow. ELSY Banegas
--- NOTE | 2018-09-21 10:32 | PCM.PN.NEU ---
Patient Problems: Active and Suspected Problems Diabetes mellitus, type II (Acute) Subjective: Staffed in team meeting. Family at bedside, questions answered. With Physical therapy, he is able to walk 12 -15 feet using the wall rail, he is moderate assist with this task. The Nader-walker was used and he was again moderate assist and able to go about 5 to 10 feet. To go from a sitting to a standing position he is moderate assistance. With Occupational therapy, he has no active movement in his right arm, they continue to do ROM in the shoulder elbow and hand. He is able to wash his face and comb his hair, he is moderate assist with all other personal care task. He is max assist to get his shirt on and total assist for lower body bathing, dressing and toileting. With Speech therapy, he is on a Pureed diet, he still has significant dysarthria with some component of Dysphasia. Will continue to work on oral exercises to improve his oral muscles, still has a very low volume voice and will continue to do exercises to improve this area as well. With Nursing, he continues to have O2 at night, he remains incontinent of Bowel and Bladder, will put him on a Toileting schedule to help improve this. The plan is for discharge to either a [facility] or home on 10/01/18. - Physical Exam General: Alert, Oriented x3, Cooperative HEENT: Atraumatic, PERRLA, EOMI, Normocephalic Neck: Supple, No JVD, Negative Carotid Bruits Lungs: Clear to auscultation, Normal air movement Cardiovascular: Regular rate, No murmurs Abdomen: Bowel Sounds Present, Soft, Non Tender Extremities: No edema, Capillary Refill Less than 3 Seconds Skin: No rashes, No breakdown Musculoskeletal: No Tenderness to Palpation of Joints or Extremities Neurological: Cranial nerves II-XII grossly intact Psych/Mental Status: Normal Affect, Appropriate, Alert and oriented to time, place, person, mood and affect Vital Signs Temp Pulse Resp BP Pulse Ox 97.9 F 97 16 153/88 H 93 09/21/18 08:01 09/21/18 08:01 09/21/18 08:01 09/21/18 08:01 09/21/18 08:01 Oxygen Flow Rate (L/min) 2 Oxygen Delivery Method Room Air Weight: 96 kg Body Mass Index (BMI) 32.1 Finger Stick Blood Glucose 268 Intake and Output for Last 24 Hours 09/19/18 09/20/18 09/21/18 23:59 23:59 23:59 Intake Total 480 / 480 960 / 960 Balance 480 / 480 960 / 960 POC Glucose 09/21/18 09/20/18 09/20/18 06:31 20:11 16:02 POC Glucose 165 H 289 H 256 H 09/20/18 11:48 POC Glucose 244 H Active Medications Acetaminophen (Tylenol) 650 mg PO Q8H PRN PRN PRN Reason: PAIN Aspirin (Ecotrin) 81 mg PO DAILY@0800 [facility] Last Admin: 09/21/18 08:06 Dose: 81 mg Atorvastatin Calcium (Lipitor) 80 mg PO QHS [facility] Last Admin: 09/20/18 20:13 Dose: 80 mg Bisacodyl (Dulcolax) 10 mg RECTAL .PRN X 1 PRN PRN Reason: Constipation Calamine/Phenol (Calmoseptine Ointment) 1 applic TOPICAL BID [facility]; Protocol Last Admin: 09/21/18 08:05 Dose: 1 applicatio Clopidogrel Bisulfate (Plavix) 75 mg PO DAILY [facility] Stop: 09/27/18 10:01 Last Admin: 09/21/18 08:06 Dose: 75 mg Enoxaparin Sodium (Lovenox) 40 mg SC DAILY@0600 [facility] Last Admin: 09/21/18 06:27 Dose: 40 mg Escitalopram Oxalate (Lexapro) 10 mg PO DAILY [facility] Last Admin: 09/21/18 08:06 Dose: 10 mg Insulin Human Lispro (Humalog Kwikpen (Bkc)) 0 unit SC [facility]; Protocol Last Admin: 09/21/18 08:06 Dose: 2 units Lisinopril (Zestril) 40 mg PO DAILY [facility] Last Admin: 09/21/18 08:06 Dose: 40 mg Magnesium Hydroxide (Milk Of Magnesia) 30 ml PO .PRN X 1 PRN PRN Reason: Constipation [facility] Last Admin: 09/21/18 08:06 Dose: 1,000 mg Multivitamins/Minerals (Multivitamin With Minerals) 1 tablet PO DAILY@0800 [facility] Last Admin: 09/21/18 08:06 Dose: 1 tablet Nystatin (Nystatin) 500,000 unit PO 4X/DAY [facility] Last Admin: 09/21/18 08:18 Dose: 500,000 unit Senna/Docusate Sodium (Senokot-S, Joy-Colace) 2 tablet PO BID PRN PRN PRN Reason: CONSTIPATION Medical Necessity - Tobacco Use Smoking Status: Never smoker Tobacco Use: Non-smoker Assessment/Plan All Active Problems Diabetes mellitus, type II (Acute) 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 Goal of rehab is sikhism of prior level of functional independence. Complicated by diabetes and hypertension. He has new hypersomnia but previous to his stroke he did not have hypersomnia. Plan: - Physical therapy for gait and balance - Occupational Therapy for ADLs - Speech therapy - Bowel protocol - PRN analgesics - PRN sleep aid - Continue anti-glycemic agents and follow - Continue antihypertensives and follow - Statin therapy, Plavix, and aspirin - Circadian disruption: Seroquel qhs => d/c Seroquel Hypersomniac during the day.
--- NOTE | 2018-09-21 10:35 | PN.NEURO_ITS ---
Patient Problems: Active and Suspected Problems Diabetes mellitus, type II (Acute) Subjective: Staffed in team meeting. Family at bedside, questions answered. With Physical therapy, he is able to walk 12 -15 feet using the wall rail, he is moderate assist with this task. The Nader-walker was used and he was again moderate assist and able to go about 5 to 10 feet. To go from a sitting to a standing position he is moderate assistance. With Occupational therapy, he has no active movement in his right arm, they continue to do ROM in the shoulder elbow and hand. He is able to wash his face and comb his hair, he is moderate assist with all other personal care task. He is max assist to get his shirt on and total assist for lower body bathing, dressing and toileting. With Speech therapy, he is on a Pureed diet, he still has significant dysarthria with some component of Dysphasia. Will continue to work on oral exercises to improve his oral muscles, still has a very low volume voice and will continue to do exercises to improve this area as well. With Nursing, he continues to have O2 at night, he remains incontinent of Bowel and Bladder, will put him on a Toileting schedule to help improve this. The plan is for discharge to either a [facility] or home on 10/01/18. - Physical Exam General: Alert, Oriented x3, Cooperative HEENT: Atraumatic, PERRLA, EOMI, Normocephalic Neck: Supple, No JVD, Negative Carotid Bruits Lungs: Clear to auscultation, Normal air movement Cardiovascular: Regular rate, No murmurs Abdomen: Bowel Sounds Present, Soft, Non Tender Extremities: No edema, Capillary Refill Less than 3 Seconds Skin: No rashes, No breakdown Musculoskeletal: No Tenderness to Palpation of Joints or Extremities Neurological: Cranial nerves II-XII grossly intact Psych/Mental Status: Normal Affect, Appropriate, Alert and oriented to time, place, person, mood and affect Vital Signs Temp Pulse Resp BP Pulse Ox 97.9 F 97 16 153/88 H 93 09/21/18 08:01 09/21/18 08:01 09/21/18 08:01 09/21/18 08:01 09/21/18 08:01 Oxygen Flow Rate (L/min) 2 Oxygen Delivery Method Room Air Weight: 96 kg Body Mass Index (BMI) 32.1 Finger Stick Blood Glucose 268 Intake and Output for Last 24 Hours 09/19/18 09/20/18 09/21/18 23:59 23:59 23:59 Intake Total 480 / 480 960 / 960 Balance 480 / 480 960 / 960 POC Glucose 09/21/18 09/20/18 09/20/18 06:31 20:11 16:02 POC Glucose 165 H 289 H 256 H 09/20/18 11:48 POC Glucose 244 H Active Medications Acetaminophen (Tylenol) 650 mg PO Q8H PRN PRN PRN Reason: PAIN Aspirin (Ecotrin) 81 mg PO DAILY@0800 [facility] Last Admin: 09/21/18 08:06 Dose: 81 mg Atorvastatin Calcium (Lipitor) 80 mg PO QHS [facility] Last Admin: 09/20/18 20:13 Dose: 80 mg Bisacodyl (Dulcolax) 10 mg RECTAL .PRN X 1 PRN PRN Reason: Constipation Calamine/Phenol (Calmoseptine Ointment) 1 applic TOPICAL BID [facility]; Protocol Last Admin: 09/21/18 08:05 Dose: 1 applicatio Clopidogrel Bisulfate (Plavix) 75 mg PO DAILY [facility] Stop: 09/27/18 10:01 Last Admin: 09/21/18 08:06 Dose: 75 mg Enoxaparin Sodium (Lovenox) 40 mg SC DAILY@0600 [facility] Last Admin: 09/21/18 06:27 Dose: 40 mg Escitalopram Oxalate (Lexapro) 10 mg PO DAILY [facility] Last Admin: 09/21/18 08:06 Dose: 10 mg Insulin Human Lispro (Humalog Kwikpen (Bkc)) 0 unit SC [facility]; Protocol Last Admin: 09/21/18 08:06 Dose: 2 units Lisinopril (Zestril) 40 mg PO DAILY [facility] Last Admin: 09/21/18 08:06 Dose: 40 mg Magnesium Hydroxide (Milk Of Magnesia) 30 ml PO .PRN X 1 PRN PRN Reason: Constipation [facility] Admin: 09/21/18 08:06 Dose: 1,000 mg Multivitamins/Minerals (Multivitamin With Minerals) 1 tablet PO DAILY@0800 [facility] Last Admin: 09/21/18 08:06 Dose: 1 tablet Nystatin (Nystatin) 500,000 unit PO 4X/DAY [facility] Last Admin: 09/21/18 08:18 Dose: 500,000 unit Senna/Docusate Sodium (Senokot-S, Joy-Colace) 2 tablet PO BID PRN PRN PRN Reason: CONSTIPATION Medical Necessity - Tobacco Use Smoking Status: Never smoker Tobacco Use: Non-smoker Assessment/Plan All Active Problems Diabetes mellitus, type II (Acute) 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 Goal of rehab is [facility]uther[facility] of prior level of functional independence. Complicated by diabetes and hypertension. He has new hypersomnia but previous to his stroke he did not have hypersomnia. Plan: - Physical therapy for gait and balance - Occupational Therapy for ADLs - Speech therapy - Bowel protocol - PRN analgesics - PRN sleep aid - Continue anti-glycemic agents and follow - Continue antihypertensives and follow - Statin therapy, Plavix, and aspirin - Circadian disruption: Seroquel qhs => d/c Seroquel Hypersomniac during the day.
[2018-09-21 11:51] LABS: Bedside Glucose 224 mg/dL (70-110)
[2018-09-21 16:33] VITALS: BMI 32.1
[2018-09-21 17:36] LABS: Bedside Glucose 230 mg/dL (70-110)
[2018-09-21] MEDS: Atorvastatin Calcium 80 MG Tablet PO (20:05)
[2018-09-21 20:18] VITALS: BP 126/72; PULSE 112; RESP 20; TEMP 36.5; O2SAT 91
[2018-09-21 21:11] LABS: Bedside Glucose 242 mg/dL (70-110)
[2018-09-21 22:02] VITALS: PULSE 96; RESP 20
--- NOTE | 2018-09-21 22:03 | NURSING ---
PT RESTING WITH EYES CLOSED. HEART RATE IS REGULAR. RESP ARE EVEN AND EASY.
[2018-09-22 00:12] VITALS: BMI 32.1
--- NOTE | 2018-09-22 03:19 | NURSING ---
REVIEWED AND AGREE WITH RADIO PERFORMER'S FIM AND HANDOFF CHARTING.
[2018-09-22] MEDS: Enoxaparin 40 MG/0.4 ML Syringe SC (06:21)
[2018-09-22 07:05] LABS: Bedside Glucose 143 mg/dL (70-110)
[2018-09-22 08:46] VITALS: BP 145/77; PULSE 105; RESP 18; TEMP 36.6; O2SAT 92
[2018-09-22] MEDS: NYSTATIN 500,000 UNIT/5 ML UDC 500000 UNIT PO ×4 (08:50→20:54)
[2018-09-22] MEDS: Aspirin E.C. 81 MG Tablet PO (08:50)
[2018-09-22] MEDS: Clopidogrel Bisulfate 75 MG Tablet PO (08:50)
[2018-09-22] MEDS: Multivitamins,Ther W-Minerals Tablet 1 TABLET PO (08:50)
[2018-09-22] MEDS: Lisinopril 40 MG Tablet PO (08:50)
[2018-09-22] MEDS: metFORMIN HCl 1,000 MG Tablet 1000 MG PO ×2 (08:50→16:52)
[2018-09-22] MEDS: Escitalopram Oxalate 10 MG Tablet PO (08:50)
[2018-09-22] MEDS: Menthol/Lanolin/Calamine/Znox 113 GM Tube 1 APPLIC TOPICAL ×2 (09:59→20:53)
[2018-09-22 11:06] LABS: Bedside Glucose 261 mg/dL (70-110)
[2018-09-22] MEDS: Insulin Lispro 100 UNIT/ML INSULN.PEN SC ×3 (11:48→20:53)
[2018-09-22 11:54] VITALS: BMI 32.1
--- NOTE | 2018-09-22 14:28 | PCM.PN.HOSP ---
Patient Problems: Active and Suspected Problems Diabetes mellitus, type II (Acute) Subjective: There is been slight improvement in patient's mood following initiation of low-dose SSRI Objective: GENERAL: not in distress HEENT: Atraumatic; moist oral mucosa EYES; Anicteric, Normal Conjunctiva NECK; supple, normal thyroid, RESPIRATORY: Diminished to auscultation bilaterally, CARDIOVASCULAR: Regular S1 S2, GI: soft, non-tender, normoactive bowel sounds, : No Renal angle tenderness; EXTREMITIES: No edema, no clubbing, no cyanosis. NEURO: Awake; right-sided hemiparesis SKIN: No Rash PSYCH; significant flat affect Vitals/I&O's: Vital Signs Temp Pulse Resp BP Pulse Ox 97.8 F 105 H 18 145/77 H 92 09/22/18 08:46 09/22/18 08:46 09/22/18 08:46 09/22/18 08:46 09/22/18 08:46 Oxygen Flow Rate (L/min) 2 Oxygen Delivery Method Room Air Weight: 96 kg Body Mass Index (BMI) 32.1 Finger Stick Blood Glucose 268 Intake and Output for Last 24 Hours 09/20/18 09/21/18 09/22/18 23:59 23:59 23:59 Intake Total 960 / 960 240 / 240 600 / 600 Balance 960 / 960 240 / 240 600 / 600 Laboratory Results 09/21/18 17:07: POC Glucose 230 H 09/21/18 20:04: POC Glucose 242 H 09/22/18 07:00: POC Glucose 143 H 09/22/18 10:53: POC Glucose 261 H Current Medications Acetaminophen (Tylenol) 650 mg PO Q8H PRN PRN PRN Reason: PAIN Aspirin (Ecotrin) 81 mg PO DAILY@0800 [facility] Last Admin: 09/22/18 08:50 Dose: 81 mg Atorvastatin Calcium (Lipitor) 80 mg PO QHS [facility] Last Admin: 09/21/18 20:05 Dose: 80 mg Bisacodyl (Dulcolax) 10 mg RECTAL .PRN X 1 PRN PRN Reason: Constipation Calamine/Phenol (Calmoseptine Ointment) 1 applic TOPICAL BID [facility]; Protocol Last Admin: 09/22/18 09:59 Dose: 1 applicatio Clopidogrel Bisulfate (Plavix) 75 mg PO DAILY [facility] Stop: 09/27/18 10:01 Last Admin: 09/22/18 08:50 Dose: 75 mg Enoxaparin Sodium (Lovenox) 40 mg SC DAILY@0600 [facility] Last Admin: 09/22/18 06:21 Dose: 40 mg Escitalopram Oxalate (Lexapro) 10 mg PO DAILY [facility] Last Admin: 09/22/18 08:50 Dose: 10 mg Insulin Human Lispro (Humalog Kwikpen (Bkc)) 0 unit SC [facility]; Protocol Last Admin: 09/22/18 11:48 Dose: 6 units Lisinopril (Zestril) 40 mg PO DAILY [facility] Last Admin: 09/22/18 08:50 Dose: 40 mg Magnesium Hydroxide (Milk Of Magnesia) 30 ml PO .PRN X 1 PRN PRN Reason: Constipation Metformin HCl (Glucophage) 1,000 mg PO BIDCM [facility] Last Admin: 09/22/18 08:50 Dose: 1,000 mg Multivitamins/Minerals (Multivitamin With Minerals) 1 tablet PO DAILY@0800 [facility] Last Admin: 09/22/18 08:50 Dose: 1 tablet Nystatin (Nystatin) 500,000 unit PO 4X/DAY [facility] Last Admin: 09/22/18 14:27 Dose: 500,000 unit Senna/Docusate Sodium (Senokot-S, Joy-Colace) 2 tablet PO BID PRN PRN PRN Reason: CONSTIPATION Medical Necessity - Tobacco Use Smoking Status: Never smoker Tobacco Use: Non-smoker Assessment/Plan All Active Problems Diabetes mellitus, type II (Acute) 68-year-old gentleman admitted with CVA involving the left cerebral middle artery 1. Physical debility secondary to acute CVA involving the left middle cerebral artery. MRI demonstrated acute lacunar infarct involving deep white matter tract in left frontal parietal region and body of caudate nucleus extending inferior medially into the left cerebral peduncle. Patient was transferred from [facility] to [facility] however patient was managed with only medical therapy and discharged back to the inpatient rehab unit where he is currently undergoing therapy 2. Diabetes mellitus type 2 blood glucose controlled home regimen continued with sliding scale coverage 3. Hypertension-blood pressure controlled, home medications continued with dose adjustment as needed 4. Dyslipidemia-patient is on statin therapy, continued at home dose 5. Obesity with BMI of 31.9 6. DVT prophylaxis SC Lovenox 7. Severe depression started on SSRI Code Visit Inpatient E&M: 09385 Subs Hosp L2
[2018-09-22 17:11] LABS: Bedside Glucose 176 mg/dL (70-110)
[2018-09-22 20:49] VITALS: BP 140/73; PULSE 105; RESP 18; TEMP 36.5; O2SAT 92
[2018-09-22] MEDS: Atorvastatin Calcium 80 MG Tablet PO (20:54)
[2018-09-22 21:01] LABS: Bedside Glucose 253 mg/dL (70-110)
[2018-09-23 01:46] VITALS: BMI 32.1
[2018-09-23] MEDS: Enoxaparin 40 MG/0.4 ML Syringe SC (06:26)
[2018-09-23 07:00] VITALS: BP 112/79; PULSE 93; RESP 18; TEMP 36.7; O2SAT 93
[2018-09-23 07:21] LABS: Bedside Glucose 156 mg/dL (70-110)
[2018-09-23] MEDS: metFORMIN HCl 1,000 MG Tablet 1000 MG PO ×2 (08:18→17:37)
[2018-09-23] MEDS: Clopidogrel Bisulfate 75 MG Tablet PO (08:18)
[2018-09-23] MEDS: Escitalopram Oxalate 10 MG Tablet PO (08:18)
[2018-09-23] MEDS: Lisinopril 40 MG Tablet PO (08:18)
[2018-09-23] MEDS: NYSTATIN 500,000 UNIT/5 ML UDC 500000 UNIT PO ×4 (08:18→21:40)
[2018-09-23] MEDS: Multivitamins,Ther W-Minerals Tablet 1 TABLET PO (08:18)
[2018-09-23] MEDS: Aspirin E.C. 81 MG Tablet PO (08:18)
[2018-09-23] MEDS: Insulin Lispro 100 UNIT/ML INSULN.PEN SC ×4 (08:20→21:40)
[2018-09-23 09:27] VITALS: PULSE 100
[2018-09-23] MEDS: Menthol/Lanolin/Calamine/Znox 113 GM Tube 1 APPLIC TOPICAL ×2 (11:57→21:41)
[2018-09-23 12:01] LABS: Bedside Glucose 210 mg/dL (70-110)
[2018-09-23 12:42] VITALS: BMI 32.1
[2018-09-23 17:11] LABS: Bedside Glucose 165 mg/dL (70-110)
[2018-09-23 21:34] VITALS: BP 131/65; PULSE 100; RESP 18; TEMP 36.8; O2SAT 93
[2018-09-23] MEDS: Atorvastatin Calcium 80 MG Tablet PO (21:40)
[2018-09-23 21:50] LABS: Bedside Glucose 178 mg/dL (70-110)
[2018-09-24 06:56] LABS: Bedside Glucose 168 mg/dL (70-110)
[2018-09-24 07:03] VITALS: BP 119/69; PULSE 79; RESP 18; TEMP 36.7; O2SAT 94
[2018-09-24] MEDS: Enoxaparin 40 MG/0.4 ML Syringe SC (07:12)
[2018-09-24] MEDS: Clopidogrel Bisulfate 75 MG Tablet PO (08:07)
[2018-09-24] MEDS: Escitalopram Oxalate 10 MG Tablet PO (08:07)
[2018-09-24] MEDS: metFORMIN HCl 1,000 MG Tablet 1000 MG PO ×2 (08:07→17:01)
[2018-09-24] MEDS: Lisinopril 40 MG Tablet PO (08:07)
[2018-09-24] MEDS: Aspirin E.C. 81 MG Tablet PO (08:07)
[2018-09-24] MEDS: Insulin Lispro 100 UNIT/ML INSULN.PEN SC ×4 (08:07→20:14)
[2018-09-24] MEDS: Multivitamins,Ther W-Minerals Tablet 1 TABLET PO (08:07)
[2018-09-24] MEDS: NYSTATIN 500,000 UNIT/5 ML UDC 500000 UNIT PO ×4 (08:11→20:14)
--- NOTE | 2018-09-24 11:06 | PN_ITS ---
Patient Problems: Active and Suspected Problems Diabetes mellitus, type II (Acute) Subjective: No significant change in patient condition. Objective: GENERAL: not in distress HEENT: Atraumatic; moist oral mucosa EYES; Anicteric, Normal Conjunctiva NECK; supple, normal thyroid, RESPIRATORY: Diminished to auscultation bilaterally, CARDIOVASCULAR: Regular S1 S2, GI: soft, non-tender, normoactive bowel sounds, : No Renal angle tenderness; EXTREMITIES: No edema, no clubbing, no cyanosis. NEURO: Awake; right-sided hemiparesis SKIN: No Rash PSYCH; significant flat affect Vitals/I&O's: Vital Signs Temp Pulse Resp BP Pulse Ox 98.1 F 79 18 119/69 94 09/24/18 07:03 09/24/18 07:03 09/24/18 07:03 09/24/18 07:03 09/24/18 07:03 Oxygen Flow Rate (L/min) 2 Oxygen Delivery Method Nasal Cannula Weight: 96 kg Body Mass Index (BMI) 32.1 Finger Stick Blood Glucose 268 Intake and Output for Last 24 Hours 09/22/18 09/23/18 09/24/18 23:59 23:59 23:59 Intake Total 600 / 600 720 / 720 240 / 240 Balance 600 / 600 720 / 720 240 / 240 Laboratory Results 09/23/18 11:53: POC Glucose 210 H 09/23/18 16:58: POC Glucose 165 H 09/23/18 21:38: POC Glucose 178 H 09/24/18 06:49: POC Glucose 168 H Current Medications Acetaminophen (Tylenol) 650 mg PO Q8H PRN PRN PRN Reason: PAIN Aspirin (Ecotrin) 81 mg PO DAILY@0800 [facility] Last Admin: 09/24/18 08:07 Dose: 81 mg Atorvastatin Calcium (Lipitor) 80 mg PO QHS [facility] Last Admin: 09/23/18 21:40 Dose: 80 mg Bisacodyl (Dulcolax) 10 mg RECTAL .PRN X 1 PRN PRN Reason: Constipation Calamine/Phenol (Calmoseptine Ointment) 1 applic TOPICAL BID [facility]; Protocol Last Admin: 09/23/18 21:41 Dose: 1 applicatio Clopidogrel Bisulfate (Plavix) 75 mg PO DAILY [facility] Stop: 09/27/18 10:01 Last Admin: 01/20/19 08:07 Dose: 75 mg Enoxaparin Sodium (Lovenox) 40 mg SC DAILY@0600 [facility] Last Admin: 09/24/18 07:12 Dose: 40 mg Escitalopram Oxalate (Lexapro) 10 mg PO DAILY [facility] Last Admin: 09/24/18 08:07 Dose: 10 mg Insulin Human Lispro (Humalog Kwikpen (Bkc)) 0 unit SC ACHS [facility]; Protocol Last Admin: 09/24/18 08:07 Dose: 2 units Lisinopril (Zestril) 40 mg PO DAILY [facility] Last Admin: 09/24/18 08:07 Dose: 40 mg Magnesium Hydroxide (Milk Of Magnesia) 30 ml PO .PRN X 1 PRN PRN Reason: Constipation Metformin HCl (Glucophage) 1,000 mg PO BIDCM [facility] Last Admin: 09/24/18 08:07 Dose: 1,000 mg Multivitamins/Minerals (Multivitamin With Minerals) 1 tablet PO DAILY@0800 [facility] Last Admin: 09/24/18 08:07 Dose: 1 tablet Nystatin (Nystatin) 500,000 unit PO 4X/DAY [facility] Last Admin: 09/24/18 08:11 Dose: 500,000 unit Senna/Docusate Sodium (Senokot-S, Joy-Colace) 2 tablet PO BID PRN PRN PRN Reason: CONSTIPATION Medical Necessity - Tobacco Use Smoking Status: Never smoker Tobacco Use: Non-smoker Assessment/Plan All Active Problems Diabetes mellitus, type II (Acute) 68-year-old gentleman admitted with CVA involving the left cerebral middle artery 1. Physical debility secondary to acute CVA involving the left middle cerebral artery. MRI demonstrated acute lacunar infarct involving deep white matter tract in left frontal parietal region and body of caudate nucleus extending inferior medially into the left cerebral peduncle. Patient was transferred from [facility] to [facility] however patient was managed with only medical therapy and discharged back to the inpatient rehab unit where he is currently undergoing therapy 2. Diabetes mellitus type 2 blood glucose controlled home regimen continued with sliding scale coverage 3. Hypertension-blood pressure controlled, home medications continued with dose adjustment as needed 4. Dyslipidemia-patient is on statin therapy, continued at home dose 5. Obesity with BMI of 31.9 6. DVT prophylaxis SC Lovenox 7. Severe depression started on SSRI Code Visit Inpatient E&M: 43988 Subs Hosp L2
[2018-09-24 12:35] LABS: Bedside Glucose 164 mg/dL (70-110)
[2018-09-24] MEDS: Menthol/Lanolin/Calamine/Znox 113 GM Tube 1 APPLIC TOPICAL ×2 (12:45→20:15)
[2018-09-24 16:31] LABS: Bedside Glucose 186 mg/dL (70-110)
[2018-09-24 17:00] VITALS: BMI 32.1
[2018-09-24 20:00] VITALS: BP 140/66; PULSE 100; RESP 18; TEMP 36.6; O2SAT 92; BMI 32.1
[2018-09-24] MEDS: Atorvastatin Calcium 80 MG Tablet PO (20:14)
[2018-09-24 21:56] LABS: Bedside Glucose 211 mg/dL (70-110)
--- NOTE | 2018-09-25 03:34 | NURSING ---
REVIEWED AND AGREE WITH LEGAL SECRETARY RECEPTIONIST'S FIM AND HANDOFF CHARTING.
[2018-09-25] MEDS: Enoxaparin 40 MG/0.4 ML Syringe SC (04:53)
[2018-09-25 07:06] LABS: Bedside Glucose 173 mg/dL (70-110)
[2018-09-25 07:16] VITALS: BP 116/69; PULSE 86; RESP 20; TEMP 36.9; O2SAT 92
[2018-09-25] MEDS: Escitalopram Oxalate 10 MG Tablet PO (08:49)
[2018-09-25] MEDS: Aspirin E.C. 81 MG Tablet PO (08:49)
[2018-09-25] MEDS: Insulin Lispro 100 UNIT/ML INSULN.PEN SC ×4 (08:49→20:32)
[2018-09-25] MEDS: Lisinopril 40 MG Tablet PO (08:49)
[2018-09-25] MEDS: metFORMIN HCl 1,000 MG Tablet 1000 MG PO ×2 (08:49→18:04)
[2018-09-25] MEDS: NYSTATIN 500,000 UNIT/5 ML UDC 500000 UNIT PO ×4 (08:50→20:12)
[2018-09-25] MEDS: Multivitamins,Ther W-Minerals Tablet 1 TABLET PO (08:50)
[2018-09-25] MEDS: Menthol/Lanolin/Calamine/Znox 113 GM Tube 1 APPLIC TOPICAL ×2 (08:50→20:13)
[2018-09-25] MEDS: Clopidogrel Bisulfate 75 MG Tablet PO (08:50)
[2018-09-25 12:20] LABS: Bedside Glucose 236 mg/dL (70-110)
--- NOTE | 2018-09-25 13:25 | PCM.PN.NEU ---
Patient Problems: Active and Suspected Problems Diabetes mellitus, type II (Acute) Subjective: Patient seen lying quietly in bed. No new complaints, or issues per nursing staff. Tolerating therapy, denies any pain, blurry vision, double vision, or headaches. Still no active movement in either the arm or leg at this time. No issue with / remains on a Pureed diet with nectar thicken liquids. - Physical Exam General: Alert, Oriented x3, Cooperative HEENT: Atraumatic, PERRLA, EOMI, Normocephalic Neck: Supple, No JVD, Negative Carotid Bruits Lungs: Clear to auscultation, Normal air movement Cardiovascular: Regular rate, No murmurs Abdomen: Bowel Sounds Present, Soft, Non Tender Extremities: No edema, Capillary Refill Less than 3 Seconds Skin: No rashes, No breakdown Musculoskeletal: No Tenderness to Palpation of Joints or Extremities Neurological: Cranial nerves II-XII grossly intact Psych/Mental Status: Normal Affect, Appropriate, Alert and oriented to time, place, person, mood and affect Vital Signs Temp Pulse Resp BP Pulse Ox 98.5 F 86 20 H 116/69 92 09/25/18 07:16 09/25/18 07:16 09/25/18 07:16 09/25/18 07:16 09/25/18 07:16 Oxygen Flow Rate (L/min) 2 Oxygen Delivery Method Room Air Weight: 96 kg Body Mass Index (BMI) 32.1 Finger Stick Blood Glucose 268 Intake and Output for Last 24 Hours 09/23/18 09/24/18 09/25/18 23:59 23:59 23:59 Intake Total 720 / 720 720 / 720 100 / 100 Balance 720 / 720 720 / 720 100 / 100 POC Glucose 09/25/18 09/25/18 09/24/18 11:11 06:53 20:12 POC Glucose 236 H 173 H 211 H 09/24/18 16:21 POC Glucose 186 H Active Medications Acetaminophen (Tylenol) 650 mg PO Q8H PRN PRN PRN Reason: PAIN Aspirin (Ecotrin) 81 mg PO DAILY@0800 [facility] Last Admin: 09/25/18 08:49 Dose: 81 mg Atorvastatin Calcium (Lipitor) 80 mg PO QHS [facility] Last Admin: 09/24/18 20:14 Dose: 80 mg Bisacodyl (Dulcolax) 10 mg RECTAL .PRN X 1 PRN PRN Reason: Constipation Calamine/Phenol (Calmoseptine Ointment) 1 applic TOPICAL BID [facility]; Protocol Last Admin: 09/25/18 08:50 Dose: 1 applicatio Clopidogrel Bisulfate (Plavix) 75 mg PO DAILY [facility] Stop: 09/27/18 10:01 Last Admin: 09/25/18 08:50 Dose: 75 mg Enoxaparin Sodium (Lovenox) 40 mg SC DAILY@0600 [facility] Last Admin: 09/25/18 04:53 Dose: 40 mg Escitalopram Oxalate (Lexapro) 10 mg PO DAILY [facility] Last Admin: 09/25/18 08:49 Dose: 10 mg Insulin Human Lispro (Humalog Kwikpen (Bkc)) 0 unit SC [facility]; Protocol Last Admin: 09/25/18 08:49 Dose: 2 units Lisinopril (Zestril) 40 mg PO DAILY [facility] Last Admin: 09/25/18 08:49 Dose: 40 mg Magnesium Hydroxide (Milk Of Magnesia) 30 ml PO .PRN X 1 PRN PRN Reason: Constipation Metformin HCl (Glucophage) 1,000 mg PO BIDCM [facility] Last Admin: 09/25/18 08:49 Dose: 1,000 mg Multivitamins/Minerals (Multivitamin With Minerals) 1 tablet PO DAILY@0800 [facility] Last Admin: 09/25/18 08:50 Dose: 1 tablet Nystatin (Nystatin) 500,000 unit PO 4X/DAY [facility] Last Admin: 09/25/18 08:50 Dose: 500,000 unit Senna/Docusate Sodium (Senokot-S, Joy-Colace) 2 tablet PO BID PRN PRN PRN Reason: CONSTIPATION Medical Necessity - Tobacco Use Smoking Status: Never smoker Tobacco Use: Non-smoker Assessment/Plan All Active Problems Diabetes mellitus, type II (Acute) 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 Goal of rehab is bapt[facility] of prior level of functional independence. Complicated by diabetes and hypertension. He has new hypersomnia but previous to his stroke he did not have hypersomnia. Plan: - Physical therapy for gait and balance - Occupational Therapy for ADLs - Speech therapy - Bowel protocol - PRN analgesics - PRN sleep aid - Continue anti-glycemic agents and follow - Continue antihypertensives and follow - Statin therapy, Plavix, and aspirin - Circadian disruption: Seroquel qhs => d/c Seroquel Hypersomniac during the day.
--- NOTE | 2018-09-25 13:30 | PN.NEURO_ITS ---
Patient Problems: Active and Suspected Problems Diabetes mellitus, type II (Acute) Subjective: Patient seen lying quietly in bed. No new complaints, or issues per nursing staff. Tolerating therapy, denies any pain, blurry vision, double vision, or headaches. Still no active movement in either the arm or leg at this time. No issue with / remains on a Pureed diet with nectar thicken liquids. - Physical Exam General: Alert, Oriented x3, Cooperative HEENT: Atraumatic, PERRLA, EOMI, Normocephalic Neck: Supple, No JVD, Negative Carotid Bruits Lungs: Clear to auscultation, Normal air movement Cardiovascular: Regular rate, No murmurs Abdomen: Bowel Sounds Present, Soft, Non Tender Extremities: No edema, Capillary Refill Less than 3 Seconds Skin: No rashes, No breakdown Musculoskeletal: No Tenderness to Palpation of Joints or Extremities Neurological: Cranial nerves II-XII grossly intact Psych/Mental Status: Normal Affect, Appropriate, Alert and oriented to time, place, person, mood and affect Vital Signs Temp Pulse Resp BP Pulse Ox 98.5 F 86 20 H 116/69 92 09/25/18 07:16 09/25/18 07:16 09/25/18 07:16 09/25/18 07:16 09/25/18 07:16 Oxygen Flow Rate (L/min) 2 Oxygen Delivery Method Room Air Weight: 96 kg Body Mass Index (BMI) 32.1 Finger Stick Blood Glucose 268 Intake and Output for Last 24 Hours 09/23/18 09/24/18 09/25/18 23:59 23:59 23:59 Intake Total 720 / 720 720 / 720 100 / 100 Balance 720 / 720 720 / 720 100 / 100 POC Glucose 09/25/18 09/25/18 09/24/18 11:11 06:53 20:12 POC Glucose 236 H 173 H 211 H 09/24/18 16:21 POC Glucose 186 H Active Medications Acetaminophen (Tylenol) 650 mg PO Q8H PRN PRN PRN Reason: PAIN Aspirin (Ecotrin) 81 mg PO DAILY@0800 [facility] Last Admin: 09/25/18 08:49 Dose: 81 mg Atorvastatin Calcium (Lipitor) 80 mg PO QHS [facility] Last Admin: 09/24/18 20:14 Dose: 80 mg Bisacodyl (Dulcolax) 10 mg RECTAL .PRN X 1 PRN PRN Reason: Constipation Calamine/Phenol (Calmoseptine Ointment) 1 applic TOPICAL BID [facility]; Protocol Last Admin: 09/25/18 08:50 Dose: 1 applicatio Clopidogrel Bisulfate (Plavix) 75 mg PO DAILY [facility] Stop: 09/27/18 10:01 Last Admin: 09/25/18 08:50 Dose: 75 mg Enoxaparin Sodium (Lovenox) 40 mg SC DAILY@0600 [facility] Last Admin: 09/25/18 04:53 Dose: 40 mg Escitalopram Oxalate (Lexapro) 10 mg PO DAILY [facility] Last Admin: 09/25/18 08:49 Dose: 10 mg Insulin Human Lispro (Humalog Kwikpen (Bkc)) 0 unit SC [facility]; Protocol Last Admin: 09/25/18 08:49 Dose: 2 units Lisinopril (Zestril) 40 mg PO DAILY [facility] Last Admin: 09/25/18 08:49 Dose: 40 mg Magnesium Hydroxide (Milk Of Magnesia) 30 ml PO .PRN X 1 PRN PRN Reason: Constipation Metformin HCl (Glucophage) 1,000 mg PO BIDCM [facility] Last Admin: 09/25/18 08:49 Dose: 1,000 mg Multivitamins/Minerals (Multivitamin With Minerals) 1 tablet PO DAILY@0800 [facility] Last Admin: 09/25/18 08:50 Dose: 1 tablet Nystatin (Nystatin) 500,000 unit PO 4X/DAY [facility] Last Admin: 09/25/18 08:50 Dose: 500,000 unit Senna/Docusate Sodium (Senokot-S, Joy-Colace) 2 tablet PO BID PRN PRN PRN Reason: CONSTIPATION Medical Necessity - Tobacco Use Smoking Status: Never smoker Tobacco Use: Non-smoker Assessment/Plan All Active Problems Diabetes mellitus, type II (Acute) 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 Goal of rehab is pentecostal of prior level of functional independence. Complicated by diabetes and hypertension. He has new hypersomnia but previous to his stroke he did not have hypersomnia. Plan: - Physical therapy for gait and balance - Occupational Therapy for ADLs - Speech therapy - Bowel protocol - PRN analgesics - PRN sleep aid - Continue anti-glycemic agents and follow - Continue antihypertensives and follow - Statin therapy, Plavix, and aspirin - Circadian disruption: Seroquel qhs => d/c Seroquel Hypersomniac during the day.
[2018-09-25 14:53] VITALS: BMI 32.1
[2018-09-25 16:35] LABS: Bedside Glucose 178 mg/dL (70-110)
[2018-09-25 20:10] VITALS: BP 142/79; PULSE 99; RESP 14; TEMP 36.3; O2SAT 89; BMI 32.1
[2018-09-25] MEDS: Atorvastatin Calcium 80 MG Tablet PO (20:12)
[2018-09-25] MEDS: Acetaminophen 325 MG Tablet 650 MG PO (20:12)
[2018-09-25 22:10] LABS: Bedside Glucose 267 mg/dL (70-110)
[2018-09-26] MEDS: Enoxaparin 40 MG/0.4 ML Syringe SC (05:55)
[2018-09-26 07:00] VITALS: BP 129/80; PULSE 90; RESP 16; TEMP 36.4; O2SAT 97
[2018-09-26 07:40] LABS: Bedside Glucose 168 mg/dL (70-110)
[2018-09-26] MEDS: NYSTATIN 500,000 UNIT/5 ML UDC 500000 UNIT PO ×4 (08:34→20:39)
[2018-09-26] MEDS: Aspirin E.C. 81 MG Tablet PO (08:34)
[2018-09-26] MEDS: Escitalopram Oxalate 10 MG Tablet PO (08:34)
[2018-09-26] MEDS: Clopidogrel Bisulfate 75 MG Tablet PO (08:34)
[2018-09-26] MEDS: Multivitamins,Ther W-Minerals Tablet 1 TABLET PO (08:34)
[2018-09-26] MEDS: metFORMIN HCl 1,000 MG Tablet 1000 MG PO ×2 (08:34→17:24)
[2018-09-26] MEDS: Lisinopril 40 MG Tablet PO (08:35)
[2018-09-26] MEDS: Insulin Lispro 100 UNIT/ML INSULN.PEN SC ×4 (08:36→20:42)
[2018-09-26] MEDS: Menthol/Lanolin/Calamine/Znox 113 GM Tube 1 APPLIC TOPICAL ×2 (08:37→20:39)
[2018-09-26 11:11] LABS: Bedside Glucose 191 mg/dL (70-110)
--- NOTE | 2018-09-26 12:05 | PN.NEURO_ITS ---
Patient Problems: Active and Suspected Problems Diabetes mellitus, type II (Acute) Subjective: No new complaints. Remains hypersomnolent. Objective: Emanation is stable. He is somnolent but arouses to voice. Right hemiparesis is stable. - Physical Exam Vital Signs Temp Pulse Resp BP Pulse Ox 36.4 C L 90 16 129/80 H 97 09/26/18 07:00 09/26/18 07:00 09/26/18 07:00 09/26/18 07:00 09/26/18 07:00 Oxygen Flow Rate (L/min) 2 Oxygen Delivery Method Room Air Weight: 96 kg Body Mass Index (BMI) 32.1 Finger Stick Blood Glucose 268 Intake and Output for Last 24 Hours 09/24/18 09/25/18 09/26/18 23:59 23:59 23:59 Intake Total 720 / 720 100 / 100 360 / 360 Balance 720 / 720 100 / 100 360 / 360 POC Glucose 09/26/18 09/26/18 09/25/18 11:02 07:32 20:31 POC Glucose 191 H 168 H 267 H 09/25/18 09/25/18 16:27 11:11 POC Glucose 178 H 236 H Current Medications Generic Name Dose Route Start Last Admin Trade Name Freq PRN Reason Stop Dose Admin Acetaminophen 650 mg 09/08/18 18:27 09/25/18 20:12 Tylenol PO 650 mg Q8H PRN PRN Administration PAIN Aspirin 81 mg 09/09/18 08:00 09/26/18 08:34 Ecotrin PO 81 mg DAILY@0800 HOWIE Administration Atorvastatin Calcium 80 mg 09/08/18 22:00 09/25/18 20:12 Lipitor PO 80 mg QHS HOWIE Administration Bisacodyl 10 mg 09/08/18 18:34 Dulcolax RECTAL .PRN X 1 PRN Constipation Calamine/Phenol 1 applic 09/09/18 22:00 09/26/18 08:37 Calmoseptine Ointment TOPICAL 1 applicatio BID HOWIE Administration Protocol Clopidogrel Bisulfate 75 mg 09/09/18 10:00 09/26/18 08:34 Plavix PO 09/27/18 10:01 75 mg DAILY HOWIE Administration Enoxaparin Sodium 40 mg 09/09/18 06:00 09/26/18 05:55 Lovenox SC 40 mg DAILY@0600 HOWIE Administration Escitalopram Oxalate 10 mg 09/19/18 10:00 09/26/18 08:34 Lexapro PO 10 mg DAILY HOWIE Administration Insulin Human Lispro 0 unit 09/14/18 11:00 09/26/18 08:36 Humalog [place] (Bkc) SC 2 units ACHS HOWIE Administration Protocol Lisinopril 40 mg 09/13/18 10:00 09/26/18 08:35 Zestril PO 40 mg DAILY HOWIE Administration Magnesium Hydroxide 30 ml 09/08/18 18:34 Milk Of Magnesia PO .PRN X 1 PRN Constipation Metformin HCl 1,000 mg 09/17/18 17:00 09/26/18 08:34 Glucophage PO 1,000 mg BIDCM HOWIE Administration Multivitamins/Minerals 1 tablet 09/09/18 08:00 09/26/18 08:34 Multivitamin With Minerals PO 1 tablet DAILY@0800 HOWIE Administration Nystatin 500,000 unit 09/15/18 18:00 09/26/18 08:34 Nystatin PO 500,000 unit 4X/DAY HOWIE Administration Senna/Docusate Sodium 2 tablet 09/13/18 19:42 Senokot-S, Joy-Colace PO BID PRN PRN CONSTIPATION Sodium Chloride 1 spray 09/26/18 08:47 [place] Nasal [place] NASAL TID PRN PRN NASAL DRYNESS Medical Necessity - Tobacco Use Smoking Status: Never smoker Tobacco Use: Non-smoker Assessment/Plan All Active Problems Diabetes mellitus, type II (Acute) 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 Goal of rehab is catholic of prior level of functional independence. Complicated by diabetes and hypertension. He has new hypersomnia but previous to his stroke he did not have hypersomnia. Plan: - Physical therapy for gait and balance - Occupational Therapy for ADLs - Speech therapy - Bowel protocol - PRN analgesics - PRN sleep aid - Continue anti-glycemic agents and follow. 09/26/18: Controlled - Continue antihypertensives and follow. 09/26/18: Blood pressure stable - Statin therapy, Plavix, and aspirin - Circadian disruption: Seroquel qhs => d/c Seroquel Hypersomniac during the day. 09/26/18: Hypersomnia stable
[2018-09-26 15:13] VITALS: BMI 32.1
[2018-09-26 17:25] LABS: Bedside Glucose 199 mg/dL (70-110)
[2018-09-26 18:46] VITALS: BP 125/69; PULSE 115; RESP 16; TEMP 36.8; O2SAT 93
[2018-09-26 20:00] VITALS: PULSE 104; RESP 20; O2SAT 93; BMI 32.1
[2018-09-26] MEDS: Nystatin Powder 15gm Bottle 1 APPLIC TOPICAL (20:38)
[2018-09-26] MEDS: Atorvastatin Calcium 80 MG Tablet PO (20:39)
[2018-09-26 22:15] LABS: Bedside Glucose 233 mg/dL (70-110)
--- NOTE | 2018-09-27 00:47 | NURSING ---
Reviewed and agree with BARREL [employer]IS[employer] HELPER documentation and FIMs charting
[2018-09-27] MEDS: Nystatin Powder 15gm Bottle 1 APPLIC TOPICAL ×3 (05:25→21:45)
[2018-09-27] MEDS: Enoxaparin 40 MG/0.4 ML Syringe SC (05:25)
[2018-09-27 06:56] LABS: Bedside Glucose 146 mg/dL (70-110)
[2018-09-27 07:00] VITALS: BP 120/75; PULSE 99; RESP 18; TEMP 36.9; O2SAT 90
[2018-09-27] MEDS: Aspirin E.C. 81 MG Tablet PO (08:19)
[2018-09-27] MEDS: metFORMIN HCl 1,000 MG Tablet 1000 MG PO ×2 (08:19→17:07)
[2018-09-27] MEDS: Menthol/Lanolin/Calamine/Znox 113 GM Tube 1 APPLIC TOPICAL ×2 (08:19→21:48)
[2018-09-27] MEDS: Multivitamins,Ther W-Minerals Tablet 1 TABLET PO (08:19)
[2018-09-27] MEDS: NYSTATIN 500,000 UNIT/5 ML UDC 500000 UNIT PO ×4 (08:20→21:45)
[2018-09-27] MEDS: Escitalopram Oxalate 10 MG Tablet PO (08:20)
[2018-09-27] MEDS: Lisinopril 40 MG Tablet PO (08:20)
[2018-09-27] MEDS: Clopidogrel Bisulfate 75 MG Tablet PO (08:20)
[2018-09-27] MEDS: Sodium Chloride 0.65% 1 SPRAY SPRAY.BTL NASAL (08:38)
--- NOTE | 2018-09-27 09:55 | PCM.PN.NEU ---
Patient Problems: Active and Suspected Problems Diabetes mellitus, type II (Acute) Subjective: No new complaints, tolerating therapy. Continues to have hypersomnia, which is more pronounce during the afternoon. He is more alert during the morning. No issues with GI/. - Physical Exam General: Alert, Oriented x3, Cooperative HEENT: Atraumatic, PERRLA, EOMI, Normocephalic Neck: Supple, No JVD, Negative Carotid Bruits Lungs: Clear to auscultation, Normal air movement Cardiovascular: Regular rate, No murmurs Abdomen: Bowel Sounds Present, Soft, Non Tender Extremities: No edema, Capillary Refill Less than 3 Seconds Skin: No rashes, No breakdown Musculoskeletal: No Tenderness to Palpation of Joints or Extremities Neurological: Cranial nerves II-XII grossly intact Psych/Mental Status: Normal Affect, Appropriate, Alert and oriented to time, place, person, mood and affect Vital Signs Temp Pulse Resp BP Pulse Ox 98.4 F 99 18 120/75 90 09/27/18 07:00 09/27/18 07:00 09/27/18 07:00 09/27/18 07:00 09/27/18 07:00 Oxygen Flow Rate (L/min) 2 Oxygen Delivery Method Room Air Weight: 96 kg Body Mass Index (BMI) 32.1 Finger Stick Blood Glucose 268 Intake and Output for Last 24 Hours 09/25/18 09/26/18 09/27/18 23:59 23:59 23:59 Intake Total 100 / 100 600 / 600 360 / 360 Balance 100 / 100 600 / 600 360 / 360 POC Glucose 09/27/18 09/26/18 09/26/18 06:48 20:41 17:20 POC Glucose 146 H 233 H 199 H 09/26/18 11:02 POC Glucose 191 H Active Medications Acetaminophen (Tylenol) 650 mg PO Q8H PRN PRN PRN Reason: PAIN Last Admin: 09/25/18 20:12 Dose: 650 mg Aspirin (Ecotrin) 81 mg PO DAILY@0800 [facility] Last Admin: 09/27/18 08:19 Dose: 81 mg Atorvastatin Calcium (Lipitor) 80 mg PO QHS [facility] Last Admin: 09/26/18 20:39 Dose: 80 mg Bisacodyl (Dulcolax) 10 mg RECTAL .PRN X 1 PRN PRN Reason: Constipation Calamine/Phenol (Calmoseptine Ointment) 1 applic TOPICAL BID [facility]; Protocol Last Admin: 09/27/18 08:19 Dose: 1 applicatio Clopidogrel Bisulfate (Plavix) 75 mg PO DAILY [facility] Stop: 09/27/18 10:01 Last Admin: 09/27/18 08:20 Dose: 75 mg Enoxaparin Sodium (Lovenox) 40 mg SC DAILY@0600 [facility] Last Admin: 09/27/18 05:25 Dose: 40 mg Escitalopram Oxalate (Lexapro) 10 mg PO DAILY [facility] Last Admin: 09/27/18 08:20 Dose: 10 mg Insulin Human Lispro (Humalog Kwikpen (Bkc)) 0 unit SC ACHS [facility]; Protocol Last Admin: 09/27/18 08:17 Dose: Not Given Lisinopril (Zestril) 40 mg PO DAILY [facility] Last Admin: 09/27/18 08:20 Dose: 40 mg Magnesium Hydroxide (Milk Of Magnesia) 30 ml PO .PRN X 1 PRN PRN Reason: Constipation Metformin HCl (Glucophage) 1,000 mg PO BIDCM [facility] Last Admin: 09/27/18 08:19 Dose: 1,000 mg Multivitamins/Minerals (Multivitamin With Minerals) 1 tablet PO DAILY@0800 [facility] Last Admin: 09/27/18 08:19 Dose: 1 tablet Nystatin (Nystatin) 500,000 unit PO 4X/DAY [facility] Last Admin: 09/27/18 08:20 Dose: 500,000 unit Nystatin (Mycostatin Powder) 1 applic TOPICAL TID [facility]; Protocol Last Admin: 09/27/18 05:25 Dose: 1 applicatio Senna/Docusate Sodium (Senokot-S, Joy-Colace) 2 tablet PO BID PRN PRN PRN Reason: CONSTIPATION Sodium Chloride ([place] Nasal [place]) 1 spray NASAL TID PRN PRN PRN Reason: NASAL DRYNESS Last Admin: 09/27/18 08:38 Dose: 1 spray Medical Necessity - Tobacco Use Smoking Status: Never smoker Tobacco Use: Non-smoker Assessment/Plan All Active Problems Diabetes mellitus, type II (Acute) 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 Goal of rehab is roman catholic of prior level of functional independence. Complicated by diabetes and hypertension. He has new hypersomnia but previous to his stroke he did not have hypersomnia. Plan: - Physical therapy for gait and balance - Occupational Therapy for ADLs - Speech therapy - Bowel protocol - PRN analgesics - PRN sleep aid - Continue anti-glycemic agents and follow. 09/26/18: Controlled - Continue antihypertensives and follow. 09/26/18: Blood pressure stable - Statin therapy, Plavix, and aspirin - Circadian disruption: Seroquel qhs => d/c Seroquel Hypersomniac during the day. 09/26/18: Hypersomnia stable
--- NOTE | 2018-09-27 09:58 | PN.NEURO_ITS ---
Patient Problems: Active and Suspected Problems Diabetes mellitus, type II (Acute) Subjective: No new complaints, tolerating therapy. Continues to have hypersomnia, which is more pronounce during the afternoon. He is more alert during the morning. No issues with GI/. - Physical Exam General: Alert, Oriented x3, Cooperative HEENT: Atraumatic, PERRLA, EOMI, Normocephalic Neck: Supple, No JVD, Negative Carotid Bruits Lungs: Clear to auscultation, Normal air movement Cardiovascular: Regular rate, No murmurs Abdomen: Bowel Sounds Present, Soft, Non Tender Extremities: No edema, Capillary Refill Less than 3 Seconds Skin: No rashes, No breakdown Musculoskeletal: No Tenderness to Palpation of Joints or Extremities Neurological: Cranial nerves II-XII grossly intact Psych/Mental Status: Normal Affect, Appropriate, Alert and oriented to time, place, person, mood and affect Vital Signs Temp Pulse Resp BP Pulse Ox 98.4 F 99 18 120/75 90 09/27/18 07:00 09/27/18 07:00 09/27/18 07:00 09/27/18 07:00 09/27/18 07:00 Oxygen Flow Rate (L/min) 2 Oxygen Delivery Method Room Air Weight: 96 kg Body Mass Index (BMI) 32.1 Finger Stick Blood Glucose 268 Intake and Output for Last 24 Hours 09/25/18 09/26/18 09/27/18 23:59 23:59 23:59 Intake Total 100 / 100 600 / 600 360 / 360 Balance 100 / 100 600 / 600 360 / 360 POC Glucose 09/27/18 09/26/18 09/26/18 06:48 20:41 17:20 POC Glucose 146 H 233 H 199 H 09/26/18 11:02 POC Glucose 191 H Active Medications Acetaminophen (Tylenol) 650 mg PO Q8H PRN PRN PRN Reason: PAIN Last Admin: 09/25/18 20:12 Dose: 650 mg Aspirin (Ecotrin) 81 mg PO DAILY@0800 [facility] Last Admin: 09/27/18 08:19 Dose: 81 mg Atorvastatin Calcium (Lipitor) 80 mg PO QHS [facility] Last Admin: 09/26/18 20:39 Dose: 80 mg Bisacodyl (Dulcolax) 10 mg RECTAL .PRN X 1 PRN PRN Reason: Constipation Calamine/Phenol (Calmoseptine Ointment) 1 applic TOPICAL BID [facility]; Protocol Last Admin: 09/27/18 08:19 Dose: 1 applicatio Clopidogrel Bisulfate (Plavix) 75 mg PO DAILY [facility] Stop: 09/27/18 10:01 Last Admin: 09/27/18 08:20 Dose: 75 mg Enoxaparin Sodium (Lovenox) 40 mg SC DAILY@0600 [facility] Last Admin: 09/27/18 05:25 Dose: 40 mg Escitalopram Oxalate (Lexapro) 10 mg PO DAILY [facility] Last Admin: 09/27/18 08:20 Dose: 10 mg Insulin Human Lispro (Humalog Kwikpen (Bkc)) 0 unit SC ACHS [facility]; Protocol Last Admin: 09/27/18 08:17 Dose: Not Given Lisinopril (Zestril) 40 mg PO DAILY [facility] Last Admin: 09/27/18 08:20 Dose: 40 mg Magnesium Hydroxide (Milk Of Magnesia) 30 ml PO .PRN X 1 PRN PRN Reason: Constipation Metformin HCl (Glucophage) 1,000 mg PO BIDCM [facility] Last Admin: 09/27/18 08:19 Dose: 1,000 mg Multivitamins/Minerals (Multivitamin With Minerals) 1 tablet PO DAILY@0800 [facility] Last Admin: 09/27/18 08:19 Dose: 1 tablet Nystatin (Nystatin) 500,000 unit PO 4X/DAY [facility] Last Admin: 09/27/18 08:20 Dose: 500,000 unit Nystatin (Mycostatin Powder) 1 applic TOPICAL TID [facility]; Protocol Last Admin: 09/27/18 05:25 Dose: 1 applicatio Senna/Docusate Sodium (Senokot-S, Joy-Colace) 2 tablet PO BID PRN PRN PRN Reason: CONSTIPATION Sodium Chloride ([place] Nasal [place]) 1 spray NASAL TID PRN PRN PRN Reason: NASAL DRYNESS Last Admin: 09/27/18 08:38 Dose: 1 spray Medical Necessity - Tobacco Use Smoking Status: Never smoker Tobacco Use: Non-smoker Assessment/Plan All Active Problems Diabetes mellitus, type II (Acute) 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 Goal of rehab is mosque of prior level of functional independence. Complicated by diabetes and hypertension. He has new hypersomnia but previous to his stroke he did not have hypersomnia. Plan: - Physical therapy for gait and balance - Occupational Therapy for ADLs - Speech therapy - Bowel protocol - PRN analgesics - PRN sleep aid - Continue anti-glycemic agents and follow. 09/26/18: Controlled - Continue antihypertensives and follow. 09/26/18: Blood pressure stable - Statin therapy, Plavix, and aspirin - Circadian disruption: Seroquel qhs => d/c Seroquel Hypersomniac during the day. 09/26/18: Hypersomnia stable
--- NOTE | 2018-09-27 10:05 | CASEMGMT ---
Social Work Spoke with resident spouse, Nohemy. Nohemy voicing that first choice for facility to transition to at time of discharge is the Transitional Care Unit (TCU) at [facility]. Nohemy educated that the TCU is a short term unit and that resident may need to transition to another facility from TCU and Nohemy may want to consider a facility that resident would be able to stay at for a long period of time. Nohemy voicing understanding and would like to continue with TCU as the first choice [facility] is the second choice. Support given. Referral made to TCU, Pat. Pat to get back to this social media strategist. Will continue to follow. ELSY Banegas
[2018-09-27 12:25] LABS: Bedside Glucose 181 mg/dL (70-110)
[2018-09-27] MEDS: Insulin Lispro 100 UNIT/ML INSULN.PEN SC ×3 (12:29→21:46)
[2018-09-27 13:53] VITALS: BMI 32.1
[2018-09-27 16:26] LABS: Bedside Glucose 192 mg/dL (70-110)
[2018-09-27 20:07] VITALS: BP 119/67; PULSE 103; RESP 20; TEMP 36.7; O2SAT 92
[2018-09-27 21:35] LABS: Bedside Glucose 170 mg/dL (70-110)
[2018-09-27] MEDS: Atorvastatin Calcium 80 MG Tablet PO (21:46)
[2018-09-28] MEDS: Enoxaparin 40 MG/0.4 ML Syringe SC (06:02)
[2018-09-28] MEDS: Nystatin Powder 15gm Bottle 1 APPLIC TOPICAL ×3 (06:03→20:31)
[2018-09-28 07:00] LABS: Bedside Glucose 161 mg/dL (70-110)
[2018-09-28 07:59] VITALS: BP 127/76; PULSE 111; RESP 20; TEMP 36.8; O2SAT 91
[2018-09-28] MEDS: Insulin Lispro 100 UNIT/ML INSULN.PEN SC ×4 (09:11→20:35)
[2018-09-28] MEDS: Multivitamins,Ther W-Minerals Tablet 1 TABLET PO (09:57)
[2018-09-28] MEDS: Escitalopram Oxalate 10 MG Tablet PO (09:57)
[2018-09-28] MEDS: Lisinopril 40 MG Tablet PO (09:57)
[2018-09-28] MEDS: Aspirin E.C. 81 MG Tablet PO (09:57)
[2018-09-28] MEDS: NYSTATIN 500,000 UNIT/5 ML UDC 500000 UNIT PO ×4 (09:57→20:32)
[2018-09-28] MEDS: metFORMIN HCl 1,000 MG Tablet 1000 MG PO ×2 (09:57→18:16)
[2018-09-28] MEDS: Menthol/Lanolin/Calamine/Znox 113 GM Tube 1 APPLIC TOPICAL ×2 (09:58→20:31)
--- NOTE | 2018-09-28 10:44 | PCM.PN.NEU ---
Patient Problems: Active and Suspected Problems Diabetes mellitus, type II (Acute) Subjective: Staffed in team meeting. Family at bedside, questions answered. With Physical therapy, he is now using the nena-walker and is able to walk about 60 to 70 feet, without a wheel chair follow, at moderate assist. He is able to go from a standing position at moderate assist. He has gone up 3 short steps at moderate assist. It was recommend to the family that they install two handrails on the stairs that he must use in the home. With Occupational therapy, He is doing more of his personal care at moderate assist He is moderate assist to dress his up body and wash his face and comb his hair. He is total assist for toileting task and dressing his lower body. With Speech therapy, he is on a Pureed diet with thin liquids, he is still having some expressive aphasia, and they continue to work on oral exercises to improve swallowing and vocal intensity. With Nursing his vital signs are stable and he is still on 2L O2 at bedtime. The plan is for transfer to TCU on Tuesday. - Physical Exam General: Alert, Oriented x3, Cooperative HEENT: Atraumatic, PERRLA, EOMI, Normocephalic Neck: Supple, No JVD, Negative Carotid Bruits Lungs: Clear to auscultation, Normal air movement Cardiovascular: Regular rate, No murmurs Abdomen: Bowel Sounds Present, Soft, Non Tender Extremities: No edema, Capillary Refill Less than 3 Seconds Skin: No rashes, No breakdown Musculoskeletal: No Tenderness to Palpation of Joints or Extremities Neurological: Cranial nerves II-XII grossly intact Psych/Mental Status: Normal Affect, Appropriate, Alert and oriented to time, place, person, mood and affect Vital Signs Temp Pulse Resp BP Pulse Ox 98.2 F 111 H 20 H 127/76 H 91 09/28/18 07:59 09/28/18 07:59 09/28/18 07:59 09/28/18 07:59 09/28/18 07:59 Oxygen Flow Rate (L/min) 2 Oxygen Delivery Method Room Air Weight: 96 kg Body Mass Index (BMI) 32.1 Finger Stick Blood Glucose 268 Intake and Output for Last 24 Hours 09/26/18 09/27/18 09/28/18 23:59 23:59 23:59 Intake Total 600 / 600 930 / 930 400 / 400 Balance 600 / 600 930 / 930 400 / 400 POC Glucose 09/28/18 09/27/18 09/27/18 06:48 21:24 16:03 POC Glucose 161 H 170 H 192 H 09/27/18 11:48 POC Glucose 181 H Active Medications Acetaminophen (Tylenol) 650 mg PO Q8H PRN PRN PRN Reason: PAIN Last Admin: 09/25/18 20:12 Dose: 650 mg Aspirin (Ecotrin) 81 mg PO DAILY@0800 [facility] Last Admin: 09/28/18 09:57 Dose: 81 mg Atorvastatin Calcium (Lipitor) 80 mg PO QHS [facility] Last Admin: 09/27/18 21:46 Dose: 80 mg Bisacodyl (Dulcolax) 10 mg RECTAL .PRN X 1 PRN PRN Reason: Constipation Calamine/Phenol (Calmoseptine Ointment) 1 applic TOPICAL BID [facility]; Protocol Last Admin: 09/28/18 09:58 Dose: 1 applicatio Enoxaparin Sodium (Lovenox) 40 mg SC DAILY@0600 [facility] Last Admin: 09/28/18 06:02 Dose: 40 mg Escitalopram Oxalate (Lexapro) 10 mg PO DAILY [facility] Last Admin: 09/28/18 09:57 Dose: 10 mg Insulin Human Lispro (Humalog Kwikpen (Bkc)) 0 unit SC [facility]; Protocol Last Admin: 09/28/18 09:11 Dose: 2 units Lisinopril (Zestril) 40 mg PO DAILY [facility] Last Admin: 09/28/18 09:57 Dose: 40 mg Magnesium Hydroxide (Milk Of Magnesia) 30 ml PO .PRN X 1 PRN PRN Reason: Constipation Metformin HCl (Glucophage) 1,000 mg PO BIDCM [facility] Last Admin: 09/28/18 09:57 Dose: 1,000 mg Multivitamins/Minerals (Multivitamin With Minerals) 1 tablet PO DAILY@0800 [facility] Last Admin: 09/28/18 09:57 Dose: 1 tablet Nystatin (Nystatin) 500,000 unit PO 4X/DAY [facility] Last Admin: 09/28/18 09:57 Dose: 500,000 unit Nystatin (Mycostatin Powder) 1 applic TOPICAL TID [facility]; Protocol Last Admin: 09/28/18 06:03 Dose: 1 applicatio Senna/Docusate Sodium (Senokot-S, Joy-Colace) 2 tablet PO BID PRN PRN PRN Reason: CONSTIPATION Sodium Chloride ([place] Nasal [place]) 1 spray NASAL TID PRN PRN PRN Reason: NASAL DRYNESS Last Admin: 09/27/18 08:38 Dose: 1 spray Medical Necessity - Tobacco Use Smoking Status: Never smoker Tobacco Use: Non-smoker Assessment/Plan All Active Problems Diabetes mellitus, type II (Acute) 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 Goal of rehab is restorationism of prior level of functional independence. Complicated by diabetes and hypertension. He has new hypersomnia but previous to his stroke he did not have hypersomnia. Plan: - Physical therapy for gait and balance - Occupational Therapy for ADLs - Speech therapy - Bowel protocol - PRN analgesics - PRN sleep aid - Continue anti-glycemic agents and follow. 09/26/18: Controlled - Continue antihypertensives and follow. 09/26/18: Blood pressure stable - Statin therapy, Plavix, and aspirin - Circadian disruption: Seroquel qhs => d/c Seroquel Hypersomniac during the day. 09/26/18: Hypersomnia stable - Plan is for transfer to TCU on Tuesday10/01/18
--- NOTE | 2018-09-28 10:52 | PN.NEURO_ITS ---
Patient Problems: Active and Suspected Problems Diabetes mellitus, type II (Acute) Subjective: Staffed in team meeting. Family at bedside, questions answered. With Physical therapy, he is now using the nena-walker and is able to walk about 60 to 70 feet, without a wheel chair follow, at moderate assist. He is able to go from a standing position at moderate assist. He has gone up 3 short steps at moderate assist. It was recommend to the family that they install two handrails on the stairs that he must use in the home. With Occupational therapy, He is doing more of his personal care at moderate assist He is moderate assist to dress his up body and wash his face and comb his hair. He is total assist for toileting task and dressing his lower body. With Speech therapy, he is on a Pureed diet with thin liquids, he is still having some expressive aphasia, and they continue to work on oral exercises to improve swallowing and vocal intensity. With Nursing his vital signs are stable and he is still on 2L O2 at bedtime. The plan is for transfer to TCU on Tuesday. - Physical Exam General: Alert, Oriented x3, Cooperative HEENT: Atraumatic, PERRLA, EOMI, Normocephalic Neck: Supple, No JVD, Negative Carotid Bruits Lungs: Clear to auscultation, Normal air movement Cardiovascular: Regular rate, No murmurs Abdomen: Bowel Sounds Present, Soft, Non Tender Extremities: No edema, Capillary Refill Less than 3 Seconds Skin: No rashes, No breakdown Musculoskeletal: No Tenderness to Palpation of Joints or Extremities Neurological: Cranial nerves II-XII grossly intact Psych/Mental Status: Normal Affect, Appropriate, Alert and oriented to time, place, person, mood and affect Vital Signs Temp Pulse Resp BP Pulse Ox 98.2 F 111 H 20 H 127/76 H 91 09/28/18 07:59 09/28/18 07:59 09/28/18 07:59 09/28/18 07:59 09/28/18 07:59 Oxygen Flow Rate (L/min) 2 Oxygen Delivery Method Room Air Weight: 96 kg Body Mass Index (BMI) 32.1 Finger Stick Blood Glucose 268 Intake and Output for Last 24 Hours 09/26/18 09/27/18 09/28/18 23:59 23:59 23:59 Intake Total 600 / 600 930 / 930 400 / 400 Balance 600 / 600 930 / 930 400 / 400 POC Glucose 09/28/18 09/27/18 09/27/18 06:48 21:24 16:03 POC Glucose 161 H 170 H 192 H 09/27/18 11:48 POC Glucose 181 H Active Medications Acetaminophen (Tylenol) 650 mg PO Q8H PRN PRN PRN Reason: PAIN Last Admin: 09/25/18 20:12 Dose: 650 mg Aspirin (Ecotrin) 81 mg PO DAILY@0800 [facility] Last Admin: 09/28/18 09:57 Dose: 81 mg Atorvastatin Calcium (Lipitor) 80 mg PO QHS [facility] Last Admin: 09/27/18 21:46 Dose: 80 mg Bisacodyl (Dulcolax) 10 mg RECTAL .PRN X 1 PRN PRN Reason: Constipation Calamine/Phenol (Calmoseptine Ointment) 1 applic TOPICAL BID [facility]; Protocol Last Admin: 09/28/18 09:58 Dose: 1 applicatio Enoxaparin Sodium (Lovenox) 40 mg SC DAILY@0600 [facility] Last Admin: 09/28/18 06:02 Dose: 40 mg Escitalopram Oxalate (Lexapro) 10 mg PO DAILY [facility] Last Admin: 09/28/18 09:57 Dose: 10 mg Insulin Human Lispro (Humalog Kwikpen (Bkc)) 0 unit SC [facility]; Protocol Last Admin: 09/28/18 09:11 Dose: 2 units Lisinopril (Zestril) 40 mg PO DAILY [facility] Last Admin: 09/28/18 09:57 Dose: 40 mg Magnesium Hydroxide (Milk Of Magnesia) 30 ml PO .PRN X 1 PRN PRN Reason: Constipation Metformin HCl (Glucophage) 1,000 mg PO BIDCM [facility] Last Admin: 09/28/18 09:57 Dose: 1,000 mg Multivitamins/Minerals (Multivitamin With Minerals) 1 tablet PO DAILY@0800 [facility] Last Admin: 09/28/18 09:57 Dose: 1 tablet Nystatin (Nystatin) 500,000 unit PO 4X/DAY [facility] Last Admin: 09/28/18 09:57 Dose: 500,000 unit Nystatin (Mycostatin Powder) 1 applic TOPICAL TID [facility]; Protocol Last Admin: 09/28/18 06:03 Dose: 1 applicatio Senna/Docusate Sodium (Senokot-S, Joy-Colace) 2 tablet PO BID PRN PRN PRN Reason: CONSTIPATION Sodium Chloride ([place] Nasal [place]) 1 spray NASAL TID PRN PRN PRN Reason: NASAL DRYNESS Last Admin: 09/27/18 08:38 Dose: 1 spray Medical Necessity - Tobacco Use Smoking Status: Never smoker Tobacco Use: Non-smoker Assessment/Plan All Active Problems Diabetes mellitus, type II (Acute) 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 Goal of rehab is nondenominational of prior level of functional independence. Complicated by diabetes and hypertension. He has new hypersomnia but previous to his stroke he did not have hypersomnia. Plan: - Physical therapy for gait and balance - Occupational Therapy for ADLs - Speech therapy - Bowel protocol - PRN analgesics - PRN sleep aid - Continue anti-glycemic agents and follow. 09/26/18: Controlled - Continue antihypertensives and follow. 09/26/18: Blood pressure stable - Statin therapy, Plavix, and aspirin - Circadian disruption: Seroquel qhs => d/c Seroquel Hypersomniac during the day. 09/26/18: Hypersomnia stable - Plan is for transfer to TCU on Tuesday10/01/18
[2018-09-28 11:35] LABS: Bedside Glucose 201 mg/dL (70-110)
--- NOTE | 2018-09-28 11:54 | CASEMGMT ---
Team meeting held. Patient present as well as patient spouse. Patient to discharge on 10/01/18. Pat from the transitional care unit did approved for patient to transition on 10/01/18. This secondary social studies teacher communicating that patient does have a bed that is currently being held for patient on the Transitional Care Unit. Patient and patient spouse confirming the discharge plan. Patient to continue with further care and treatment on the Inpatient Rehab Unit until time of discharge. Support given. Proposed discharge date: 10/01/18 PLAN: Discharge to the Transitional Care Unit for further skilled services. Jamie MCCOLLUM, [employer] GUNNER
[2018-09-28 13:30] VITALS: BMI 32.1
[2018-09-28 16:40] LABS: Bedside Glucose 182 mg/dL (70-110)
[2018-09-28 18:45] VITALS: BP 122/67; PULSE 110; RESP 16; TEMP 36.4; O2SAT 92
[2018-09-28] MEDS: Atorvastatin Calcium 80 MG Tablet PO (20:32)
[2018-09-28 22:55] LABS: Bedside Glucose 182 mg/dL (70-110)
[2018-09-29 01:43] VITALS: BMI 32.1
[2018-09-29] MEDS: Enoxaparin 40 MG/0.4 ML Syringe SC (05:41)
[2018-09-29] MEDS: Nystatin Powder 15gm Bottle 1 APPLIC TOPICAL ×3 (05:41→20:53)
[2018-09-29 06:51] LABS: Bedside Glucose 139 mg/dL (70-110)
[2018-09-29 09:17] VITALS: BP 123/69; PULSE 103; RESP 18; TEMP 36.4; O2SAT 94
[2018-09-29] MEDS: Escitalopram Oxalate 10 MG Tablet PO (09:18)
[2018-09-29] MEDS: Lisinopril 40 MG Tablet PO (09:18)
[2018-09-29] MEDS: NYSTATIN 500,000 UNIT/5 ML UDC 500000 UNIT PO ×4 (09:18→20:54)
[2018-09-29] MEDS: Menthol/Lanolin/Calamine/Znox 113 GM Tube 1 APPLIC TOPICAL ×2 (09:19→20:55)
[2018-09-29] MEDS: metFORMIN HCl 1,000 MG Tablet 1000 MG PO ×2 (09:19→16:33)
[2018-09-29] MEDS: Aspirin E.C. 81 MG Tablet PO (09:19)
[2018-09-29] MEDS: Multivitamins,Ther W-Minerals Tablet 1 TABLET PO (09:19)
[2018-09-29 11:45] LABS: Bedside Glucose 191 mg/dL (70-110)
[2018-09-29] MEDS: Insulin Lispro 100 UNIT/ML INSULN.PEN SC ×3 (11:48→20:54)
--- NOTE | 2018-09-29 11:51 | TREXTCAR_ITS ---
- Diet 09/08/18 17:26 Diet: Cardiac: Carb-Controlled Food consistency:: Puree Liquid Consistency:: Regular/Thin Dietary Modifications:: Pureed Diet Diet Comments: supervision, check for right cheek pocketing, small sips fluid - Routine Orders/Code Status Suppository Type: Dulcolax 10mg Suppository Frequency: Daily PRN O2 Liters per Minute: 2 O2 Frequency: PRN Keep PO Greater than or Equal to (%): 90 - Wound(s) superior right knee Wound Type: Abrasion inferior to right knee Wound Type: Abrasion miguelangel cleft Wound Type: Skin Tear Right knee Wound Type: Abrasion anterior scrotum Wound Type: increased redness - Therapies Weight Bearing: Full weight bearing Extremity Affected:: rue and rle Physical Therapy: Eval and Treat Occupational Therapy: Eval and Treat Speech Therapy: Eval and Treat - Problem/Diagnosis (1) Left acute arterial ischemic stroke, MCA (middle cerebral artery) Status: Chronic Current Visit: Yes - Allergies/Procedures Done in Hospital Allergies/Adverse Reactions: Allergies hornet venom Allergy (Verified 09/08/18 18:16) Unknown - Type of Care/Length of Stay Estimated LOS: More Than 30 Days Type of Care Needed: Skilled Rehab Potential: Good Prognosis: Good - Additional Orders/Day of Discharge Day of Discharge: 10/01/18 - Dietary and Speech Recommendations Dietitian Recommendations/Changes: Continue Cardiac/carb controlled with text ure/consistency as per speech. - Follow Up Care Primary Care Physician: Care Physician,No Primary [Primary Care Provider] - Please Follow Up With: Endy Ospina MD When: when discharged
--- NOTE | 2018-09-29 11:57 | DS.PCM_ITS ---
Rehab Discharge Summary DATE OF ADMISSION: 09/08/18 DATE OF DISCHARGE: 10/01/18 Patient Problems: Active and Suspected Problems Diabetes mellitus, type II (Acute) - Physical Exam General: Alert, Oriented x3, Lethargic HEENT: PERRLA, EOMI Abdomen: Bowel Sounds Present, Soft, Non Tender, Non-Distended Extremities: No Calf Tenderness Musculoskeletal: No Tenderness to Palpation of Joints or Extremities Neurological: - - Right-sided weakness stable arm greater than leg, lethargy slowly improving Vital Signs Temp Pulse Resp BP Pulse Ox 36.4 C L 103 H 18 123/69 H 94 09/29/18 09:17 09/29/18 09:17 09/29/18 09:17 09/29/18 09:17 09/29/18 09:17 Oxygen Flow Rate (L/min) 2 Oxygen Delivery Method Room Air Weight: 96 kg Body Mass Index (BMI) 32.1 Finger Stick Blood Glucose 268 Intake and Output for Last 24 Hours 09/27/18 09/28/18 09/29/18 23:59 23:59 23:59 Intake Total 930 / 930 400 / 400 120 / 120 Balance 930 / 930 400 / 400 120 / 120 POC Glucose 09/29/18 09/29/18 09/28/18 11:39 06:43 20:34 POC Glucose 191 H 139 H 182 H 09/28/18 16:36 POC Glucose 182 H Discharge Diet: No Restrictions Home Medications: Medications to take at Discharge Aspirin [Aspir 81] 81 mg PO DAILY 09/08/18 Atorvastatin Calcium 80 mg PO QHS 09/08/18 Clopidogrel Bisulfate [Plavix] 75 mg PO DAILY 09/08/18 Bisacodyl [Dulcolax] 10 mg RECTAL .PRN X 1 PRN suppos. 09/29/18 Enoxaparin [Lovenox] 40 mg SC DAILY@0600 syringe 09/29/18 Escitalopram Oxalate [Lexapro] 10 mg PO DAILY tablet 09/29/18 Insulin Lispro [Humalog KwikPen] See Protocol SC ACHS insuln.pen 09/29/18 Lisinopril [Zestril] 40 mg PO DAILY tablet 09/29/18 Menthol/Lanolin/Calamine/Znox [Calmoseptine Ointment] 1 applic TOPICAL BID tube 09/29/18 Metformin HCl [Glucophage] 1,000 mg PO BIDCM tablet 09/29/18 Multivitamins,Ther W-Minerals [Multivitamin With Minerals] 1 tablet PO DAILY@0800 tablet 09/29/18 Nystatin 500,000 unit PO 4X/DAY udc 09/29/18 Nystatin Powder [Mycostatin Powder] 1 applic TOPICAL TID bottle 09/29/18 Primary Care Physician: Care Physician,No Primary [Primary Care Provider] - Please Follow Up With: Endy Ospina MD When: when discharged Disposition: Assisted facility Minutes spent on discharge:: 40 Patient Condition:: Good Rehab Course Mr. Sepulveda is a 68-year-old right-handed male with a history of hypertension, diabetes, hypercholesterolemia, who presented to [facility] on 09/05/18 with new right-sided weakness associated with dysarthria. He did not receive TPA due to time of onset, he was transferred to the [facility] because of a possible right MCA thrombus, however no intervention occurred other than supportive therapy. He was then transferred back to [facility] acute rehab unit for rehabilitation in order to restore his previous level of functional independence. He lives with his in a 1-1/2 story house. He says there is significant steps there. He is not a smoker, he does have new hypersomnia since his stroke, he does not have a history of snoring or hypersomnia previously. No other complaints. No GI or complaints. Denies pain. His course in the rehab unit was complicated by hypersomnolence which slowly improved. Repeat evaluation was negative for new stroke including MRI. His hypersomnolence slowly improved over time. And transferred to the TCU for further rehabilitation. Meaningful Use Info Meaningful Use Diagnoses (Choose all that apply): None applicable
[2018-09-29 12:25] VITALS: BMI 32.1
[2018-09-29 17:20] LABS: Bedside Glucose 185 mg/dL (70-110)
[2018-09-29] MEDS: Atorvastatin Calcium 80 MG Tablet PO (20:54)
[2018-09-29] MEDS: Sodium Chloride 0.65% 1 SPRAY SPRAY.BTL NASAL (20:55)
[2018-09-29 21:11] LABS: Bedside Glucose 224 mg/dL (70-110)
[2018-09-29 22:00] VITALS: BP 134/70; PULSE 98; RESP 18; TEMP 36.4; O2SAT 94
[2018-09-29 23:04] VITALS: BMI 32.1
--- NOTE | 2018-09-29 23:40 | NURSING ---
Reviewed and agree with LPNs fims and handoff
[2018-09-30] MEDS: Nystatin Powder 15gm Bottle 1 APPLIC TOPICAL ×3 (05:58→20:40)
[2018-09-30] MEDS: Enoxaparin 40 MG/0.4 ML Syringe SC (05:58)
[2018-09-30 07:10] LABS: Bedside Glucose 155 mg/dL (70-110)
[2018-09-30 07:23] VITALS: BP 122/76; PULSE 94; RESP 17; TEMP 36.4; O2SAT 94
[2018-09-30] MEDS: Insulin Lispro 100 UNIT/ML INSULN.PEN SC ×3 (07:56→20:52)
[2018-09-30] MEDS: Aspirin E.C. 81 MG Tablet PO (07:57)
[2018-09-30] MEDS: Multivitamins,Ther W-Minerals Tablet 1 TABLET PO (07:57)
[2018-09-30] MEDS: metFORMIN HCl 1,000 MG Tablet 1000 MG PO ×2 (07:57→16:38)
[2018-09-30] MEDS: Menthol/Lanolin/Calamine/Znox 113 GM Tube 1 APPLIC TOPICAL ×2 (07:58→20:39)
[2018-09-30] MEDS: Lisinopril 40 MG Tablet PO (07:58)
[2018-09-30] MEDS: Escitalopram Oxalate 10 MG Tablet PO (07:58)
[2018-09-30] MEDS: NYSTATIN 500,000 UNIT/5 ML UDC 500000 UNIT PO ×4 (07:59→20:39)
[2018-09-30 12:15] LABS: Bedside Glucose 147 mg/dL (70-110)
[2018-09-30 15:08] VITALS: BMI 32.1
[2018-09-30 16:50] LABS: Bedside Glucose 206 mg/dL (70-110)
[2018-09-30 19:52] VITALS: BP 116/70; PULSE 114; RESP 18; TEMP 36.6; O2SAT 94
[2018-09-30] MEDS: Atorvastatin Calcium 80 MG Tablet PO (20:39)
[2018-09-30] MEDS: Sodium Chloride 0.65% 1 SPRAY SPRAY.BTL NASAL (20:40)
[2018-09-30 21:01] LABS: Bedside Glucose 185 mg/dL (70-110)
[2018-09-30 21:27] VITALS: BMI 32.1
[2018-10-01] MEDS: Enoxaparin 40 MG/0.4 ML Syringe SC (04:56)
[2018-10-01] MEDS: Nystatin Powder 15gm Bottle 1 APPLIC TOPICAL ×2 (04:57→13:10)
[2018-10-01 06:21] LABS: Bedside Glucose 150 mg/dL (70-110)
[2018-10-01 06:48] VITALS: BP 107/60; PULSE 80; RESP 17; TEMP 36.8; O2SAT 92
[2018-10-01] MEDS: Lisinopril 40 MG Tablet PO (07:30)
[2018-10-01] MEDS: Escitalopram Oxalate 10 MG Tablet PO (07:31)
[2018-10-01] MEDS: Aspirin E.C. 81 MG Tablet PO (07:31)
[2018-10-01] MEDS: metFORMIN HCl 1,000 MG Tablet 1000 MG PO (07:31)
[2018-10-01] MEDS: Insulin Lispro 100 UNIT/ML INSULN.PEN SC ×2 (07:31→12:00)
[2018-10-01] MEDS: Menthol/Lanolin/Calamine/Znox 113 GM Tube 1 APPLIC TOPICAL (07:31)
[2018-10-01] MEDS: Multivitamins,Ther W-Minerals Tablet 1 TABLET PO (07:31)
[2018-10-01] MEDS: NYSTATIN 500,000 UNIT/5 ML UDC 500000 UNIT PO ×2 (07:31→13:10)
[2018-10-01 11:56] LABS: Bedside Glucose 166 mg/dL (70-110)
[2018-10-01 12:37] VITALS: BMI 32.1
--- NOTE | 2018-10-01 14:40 | NURSING ---
patient discharged to TCU, present. report given to Rene STEVENS on TCU.
== END 2018-10-01 14:37 | disposition skilled nursing facility (03) | DRG 57 ==
PROVIDERS: Internal Medicine; Nurse Practitioner Acute Care; Student in an Organized Health Care Education/Training Program; Admitting Provider Psychiatry & Neurology Neurology; Referring Provider Psychiatry & Neurology Neurology; Visit Provider Family Medicine
DX: I69.351 Hemiplegia and hemiparesis following cerebral infarction affecting right dominant side (principal); I69.392 Facial weakness following cerebral infarction; E11.9 Type 2 diabetes mellitus without complications; I10 Essential (primary) hypertension; E78.5 Hyperlipidemia, unspecified; E66.9 Obesity, unspecified; Z68.30 Body mass index [BMI] 30.0-30.9, adult; Z71.3 Dietary counseling and surveillance; I69.322 Dysarthria following cerebral infarction; G47.10 Hypersomnia, unspecified; F32.9 Major depressive disorder, single episode, unspecified
CPT/HCPCS: 36415; 70450; 70553; 74230; 80048; 80053; 80069; 81001; 82962; 85025; 87086; 92507; 92523; 92526; 92611; 93005; 95806; 97110; 97112; 97116; 97162; 97167; 97530; 97535; A9585; A4216

== ENCOUNTER 2018-10-01 14:00 | Inpatient (IN) | payer MEDICARE, SELFPAY ==
[2018-10-01 12:37] VITALS: BMI 32.1
[2018-10-01 14:56] VITALS: BP 118/69; PULSE 102; RESP 18; TEMP 36.6; O2SAT 92; BMI 28.7
--- NOTE | 2018-10-01 15:47 | PCM.HP.STD ---
Problem List (1) Right hemiparesis Status: Chronic (2) Dysphagia Status: Acute (3) Left acute arterial ischemic stroke, MCA (middle cerebral artery) Status: Acute (4) HTN (hypertension) Status: Chronic Qualifiers: (5) HLD (hyperlipidemia) Status: Chronic Qualifiers: (6) Diabetes mellitus, type II Status: Acute Qualifiers: (7) Obesity (BMI 30.0-34.9) Status: Chronic History of Present Illness Date of Admission: 10/01/18 Chief Complaint: Here for rehabilitation, strengthening, prior to discharge home with significant other. The patient is a 68 year old Male with below past medical history with following. 09/05/2018 Presented with right sided weakness, dysarthria. TPA not indicated. Transferred to [place] for possible right MCA thrombus. No intervention done. 09/08/2018 Admit to for acute rehabilitation. 09/12/2018 CT brain chronic involutional changes of brain. Decreased attenuation left basal ganglia and left temporal insular cortex. Old right thalamus lacunar infarct. 09/14/2018 MRI brain showed acute lacunary infarct involving left basal ganglia involving deep white matter tracts in left frontal parietal region and body of the caudate nucleus, extending inferomedially into the left cerebral peduncle. 09/18/2018 Modified barium study showed transient penetration with ingestion of thin liquids. Patient had hypersomnolence from stroke, which improved over time. Repeat evaluation negative for new stroke. 10/01/2018 Admit to TCU with debility, here for rehabilitation, strengthening, prior to discharge home with significant other. Past Medical History Past Medical History (Chronic Problems): Chronic Problems HTN (hypertension) (Chronic) HLD (hyperlipidemia) (Chronic) Obesity (BMI 30.0-34.9) (Chronic) Right hemiparesis (Chronic) Allergies hornet venom Allergy (Verified 09/08/18 18:16) Unknown Home Medications: Ambulatory Orders Medication Instructions Recorded Aspirin [Aspir 81] 81 mg PO DAILY 09/08/18 Atorvastatin Calcium 80 mg PO QHS 09/08/18 Clopidogrel Bisulfate [Plavix] 75 mg PO DAILY 09/08/18 Bisacodyl [Dulcolax] 10 mg RECTAL DAILY PRN 10/01/18 Enoxaparin [Lovenox] 40 mg SC DAILY@0600 10/01/18 Escitalopram Oxalate [Lexapro] 10 mg PO DAILY 10/01/18 Insulin Lispro [Humalog KwikPen] See Protocol SC ACHS 10/01/18 Lisinopril [Zestril] 40 mg PO DAILY 10/01/18 Menthol/Lanolin/Calamine/Znox 1 applic TOPICAL BID 10/01/18 [Calmoseptine Ointment] Metformin HCl [Glucophage] 1,000 mg PO BIDCM 10/01/18 Multivitamins,Ther W-Minerals 1 tablet PO DAILY@0800 10/01/18 [Multivitamin With Minerals] Nystatin 500,000 unit PO 4X/DAY 10/01/18 Nystatin Powder [Mycostatin Powder] 1 applic TOPICAL TID 10/01/18 Surgical History: no surgical history, - - Patient denies any surgical history. Psychiatric History: No pertinent psych hx Lives: Spouse/ Significant Other Smoking Status: Never smoker Tobacco Use: Non-smoker Alcohol: None Drugs: None - *Family History Maternal History Items: - - Patient's mother at age 76 with history of cancer. Paternal History Items: - - Patient's father at age 66 with myocardial infarction, current history of diabetes mellitus. Review of Systems Constitutional: Denies: Chills, Fever, Weight Change HEENT: Denies: Head Aches, Sinus Congestion, Sinus Drainage Cardiovascular: Denies: Chest Pain, Palpitations Respiratory: Denies: Cough, Shortness of breath at rest, Sputum production Gastrointestinal: Denies: Abdominal Pain, Nausea, Vomiting Genitourinary: Denies: Dysuria Musculoskeletal: Denies: Joint Pain, Joint Tenderness Skin: Denies: Rash, Wounds Neurological: Denies: Numbness, Tingling, Focal weakness Psychiatric: Denies: Anxiety, Depression, Homicidal Ideations, Suicidal Ideations Hematologic/ Lymphatic: Denies: Easy Bruising, Easy Bleeding VTE Information - Inpt Only VTE Present on Admission: No VTE Mechan Device Prophylaxis: Knee High ROMULO Hose VTE Pharm Prophylaxis ordered?: Yes Patient Problems: Active and Suspected Problems Dysphagia (Acute) - Physical Exam General: Alert, Oriented x3, Cooperative HEENT: Atraumatic, PERRLA, EOMI, Normocephalic Neck: Supple, No JVD, Negative Carotid Bruits Lungs: Clear to auscultation, Normal air movement Cardiovascular: Regular rate, No murmurs Abdomen: Bowel Sounds Present, Soft, Non Tender Extremities: No edema, Capillary Refill Less than 3 Seconds Skin: No rashes, No breakdown Musculoskeletal: No Tenderness to Palpation of Joints or Extremities Neurological: Cranial nerves II-XII grossly intact, - - Right hemiparesis, right upper extremity worse than right lower extremity. Psych/Mental Status: Normal Affect, Appropriate Vital Signs Temp Pulse Resp BP Pulse Ox 97.8 F 102 H 18 118/69 92 10/01/18 14:56 10/01/18 14:56 10/01/18 14:56 10/01/18 14:56 10/01/18 14:56 Oxygen Delivery Method Room Air Body Mass Index (BMI) 32.1 Finger Stick Blood Glucose 268 Assessment/Plan All Active Problems Left acute arterial ischemic stroke, MCA (middle cerebral artery) (Acute) Diabetes mellitus, type II (Acute) Dysphagia (Acute) 68 year old male with below past medical hospitalized for Left MCA stroke, complicated by hypersomnolence, admitted to TCU with debility, here for rebhabiliation, strengthening, prior to discharge home with spouse. Debility - PT/OT. Dysphagia - ST. Pain - Tylenol 1000MG Q6H PRN mild pain. Bowel - Miralax 17GM daily, Senna/colace 1 tablet BID, Dulcolax 10MG DE daily PRN. Pneumonia vaccination - Administer Prevnar 13 and/or Pneumovax 23 as necessary. DVT prophylaxis - Lovenox 40MG SC daily. Stroke - Aspirin 81MG daily, Plavix 75MG daily. Hyperlipidemia - Atorvastatin 80MG QHS. Depression - Lexapro 10MG daily. Hypertension - Lisinopril 40MG daily. Skin irritation - Calmoseptine BID. Diabetes Mellitus II - Metformin 1000MG BID. Nutrition - MVI daily. Tinea Corporis - Nystatin powder TID. Thrush - Nystatin 500,000 units PO 4x/day.
--- NOTE | 2018-10-01 15:54 | HP.PCM_ITS ---
Problem List (1) Right hemiparesis Status: Chronic (2) Dysphagia Status: Acute (3) Left acute arterial ischemic stroke, MCA (middle cerebral artery) Status: Acute (4) HTN (hypertension) Status: Chronic Qualifiers: (5) HLD (hyperlipidemia) Status: Chronic Qualifiers: (6) Diabetes mellitus, type II Status: Acute Qualifiers: (7) Obesity (BMI 30.0-34.9) Status: Chronic History of Present Illness Date of Admission: 10/01/18 Chief Complaint: Here for rehabilitation, strengthening, prior to discharge home with significant other. The patient is a 68 year old Male with below past medical history with following. 09/05/2018 Presented with right sided weakness, dysarthria. TPA not indicated. Transferred to [facility] for possible right MCA thrombus. No intervention done. 09/08/2018 Admit to for acute rehabilitation. 09/12/2018 CT brain chronic involutional changes of brain. Decreased attenuation left basal ganglia and left temporal insular cortex. Old right thalamus lacunar infarct. 09/14/2018 MRI brain showed acute lacunary infarct involving left basal ganglia involving deep white matter tracts in left frontal parietal region and body of the caudate nucleus, extending inferomedially into the left cerebral peduncle. 09/18/2018 Modified barium study showed transient penetration with ingestion of thin liquids. Patient had hypersomnolence from stroke, which improved over time. Repeat evaluation negative for new stroke. 10/01/2018 Admit to TCU with debility, here for rehabilitation, strengthening, prior to discharge home with significant other. Past Medical History Past Medical History (Chronic Problems): Chronic Problems HTN (hypertension) (Chronic) HLD (hyperlipidemia) (Chronic) Obesity (BMI 30.0-34.9) (Chronic) Right hemiparesis (Chronic) Allergies hornet venom Allergy (Verified 09/08/18 18:16) Unknown Home Medications: Ambulatory Orders Medication Instructions Recorded Aspirin [Aspir 81] 81 mg PO DAILY 09/08/18 Atorvastatin Calcium 80 mg PO QHS 09/08/18 Clopidogrel Bisulfate [Plavix] 75 mg PO DAILY 09/08/18 Bisacodyl [Dulcolax] 10 mg RECTAL DAILY PRN 10/01/18 Enoxaparin [Lovenox] 40 mg SC DAILY@0600 10/01/18 Escitalopram Oxalate [Lexapro] 10 mg PO DAILY 10/01/18 Insulin Lispro [Humalog KwikPen] See Protocol SC ACHS 10/01/18 Lisinopril [Zestril] 40 mg PO DAILY 10/01/18 Menthol/Lanolin/Calamine/Znox 1 applic TOPICAL BID 10/01/18 [Calmoseptine Ointment] Metformin HCl [Glucophage] 1,000 mg PO BIDCM 10/01/18 Multivitamins,Ther W-Minerals 1 tablet PO DAILY@0800 10/01/18 [Multivitamin With Minerals] Nystatin 500,000 unit PO 4X/DAY 10/01/18 Nystatin Powder [Mycostatin Powder] 1 applic TOPICAL TID 10/01/18 Surgical History: no surgical history, - - Patient denies any surgical history. Psychiatric History: No pertinent psych hx Lives: Spouse/ Significant Other Smoking Status: Never smoker Tobacco Use: Non-smoker Alcohol: None Drugs: None - *Family History Maternal History Items: - - Patient's mother at age 76 with history of cancer. Paternal History Items: - - Patient's father at age 66 with myocardial infarction, current history of diabetes mellitus. Review of Systems Constitutional: Denies: Chills, Fever, Weight Change HEENT: Denies: Head Aches, Sinus Congestion, Sinus Drainage Cardiovascular: Denies: Chest Pain, Palpitations Respiratory: Denies: Cough, Shortness of breath at rest, Sputum production Gastrointestinal: Denies: Abdominal Pain, Nausea, Vomiting Genitourinary: Denies: Dysuria Musculoskeletal: Denies: Joint Pain, Joint Tenderness Skin: Denies: Rash, Wounds Neurological: Denies: Numbness, Tingling, Focal weakness Psychiatric: Denies: Anxiety, Depression, Homicidal Ideations, Suicidal Ideations Hematologic/ Lymphatic: Denies: Easy Bruising, Easy Bleeding VTE Information - Inpt Only VTE Present on Admission: No VTE Mechan Device Prophylaxis: Knee High ROMULO Hose VTE Pharm Prophylaxis ordered?: Yes Patient Problems: Active and Suspected Problems Dysphagia (Acute) - Physical Exam General: Alert, Oriented x3, Cooperative HEENT: Atraumatic, PERRLA, EOMI, Normocephalic Neck: Supple, No JVD, Negative Carotid Bruits Lungs: Clear to auscultation, Normal air movement Cardiovascular: Regular rate, No murmurs Abdomen: Bowel Sounds Present, Soft, Non Tender Extremities: No edema, Capillary Refill Less than 3 Seconds Skin: No rashes, No breakdown Musculoskeletal: No Tenderness to Palpation of Joints or Extremities Neurological: Cranial nerves II-XII grossly intact, - - Right hemiparesis, right upper extremity worse than right lower extremity. Psych/Mental Status: Normal Affect, Appropriate Vital Signs Temp Pulse Resp BP Pulse Ox 97.8 F 102 H 18 118/69 92 10/01/18 14:56 10/01/18 14:56 10/01/18 14:56 10/01/18 14:56 10/01/18 14:56 Oxygen Delivery Method Room Air Body Mass Index (BMI) 32.1 Finger Stick Blood Glucose 268 Assessment/Plan All Active Problems Left acute arterial ischemic stroke, MCA (middle cerebral artery) (Acute) Diabetes mellitus, type II (Acute) Dysphagia (Acute) 68 year old male with below past medical hospitalized for Left MCA stroke, complicated by hypersomnolence, admitted to TCU with debility, here for rebhabiliation, strengthening, prior to discharge home with spouse. * Debility - PT/OT. * Dysphagia - ST. * Pain - Tylenol 1000MG Q6H PRN mild pain. * Bowel - Miralax 17GM daily, Senna/colace 1 tablet BID, Dulcolax 10MG SD daily PRN. * Pneumonia vaccination - Administer Prevnar 13 and/or Pneumovax 23 as necessary. * DVT prophylaxis - Lovenox 40MG SC daily. * Stroke - Aspirin 81MG daily, Plavix 75MG daily. * Hyperlipidemia - Atorvastatin 80MG QHS. * Depression - Lexapro 10MG daily. * Hypertension - Lisinopril 40MG daily. * Skin irritation - Calmoseptine BID. * Diabetes Mellitus II - Metformin 1000MG BID. * Nutrition - MVI daily. * Tinea Corporis - Nystatin powder TID. * Thrush - Nystatin 500,000 units PO 4x/day.
[2018-10-01 17:10] LABS: Bedside Glucose 174 mg/dL (70-110)
--- NOTE | 2018-10-01 17:33 | NURSING ---
pt arrived to floor at 1455 from [facility]
[2018-10-01] MEDS: Senna/Docusate Sodium 1 Tablet PO (18:32)
[2018-10-01] MEDS: metFORMIN HCl 1,000 MG Tablet 1000 MG PO (18:32)
[2018-10-01] MEDS: NYSTATIN 500,000 UNIT/5 ML UDC 500000 UNIT PO ×2 (18:32→21:10)
[2018-10-01 21:00] VITALS: BMI 28.7
[2018-10-01] MEDS: Atorvastatin Calcium 80 MG Tablet PO (21:10)
[2018-10-01] MEDS: Menthol/Lanolin/Calamine/Znox 113 GM Tube 1 APPLIC TOPICAL (21:14)
[2018-10-01] MEDS: Nystatin Powder 15gm Bottle 1 APPLIC TOPICAL (21:16)
[2018-10-01 22:16] LABS: Bedside Glucose 152 mg/dL (70-110)
[2018-10-02] MEDS: NYSTATIN 500,000 UNIT/5 ML UDC 500000 UNIT PO ×4 (05:37→20:39)
[2018-10-02] MEDS: Clopidogrel Bisulfate 75 MG Tablet PO (05:37)
[2018-10-02] MEDS: Enoxaparin 40 MG/0.4 ML Syringe SC (05:37)
[2018-10-02] MEDS: Lisinopril 40 MG Tablet PO (05:37)
[2018-10-02] MEDS: Senna/Docusate Sodium 1 Tablet PO (05:37)
[2018-10-02] MEDS: Escitalopram Oxalate 10 MG Tablet PO (05:37)
[2018-10-02] MEDS: Nystatin Powder 15gm Bottle 1 APPLIC TOPICAL ×3 (05:38→20:39)
[2018-10-02] MEDS: Glucerna Shake 120 ML LIQUID PO ×4 (05:38→20:45)
[2018-10-02] MEDS: Menthol/Lanolin/Calamine/Znox 113 GM Tube 1 APPLIC TOPICAL ×2 (05:41→16:56)
[2018-10-02 06:08] LABS: Absolute Lymphocyte Count 2.14 X10^3/ul (0.83-4.51); Absolute Neutrophil Count 4.4 X10^3/uL (2.0-7.7); Basophil# 0.03 X10^3/uL; Basophil% 0.4 % (0-1); Eosinophil# 0.47 X10^3/uL; Hematocrit 42.3 % (40-54); Hemoglobin 14.2 g/dl (13.0-16.5); Lymphocyte # 2.14 X10^3/ul (4.0); Lymphocyte % 27.2 % (19-41); Mean Corp Hgb Conc 33.6 g/gl (32-36); Mean Corpuscular Hgb 27.6 pg (27.0-32.0); Mean Corpuscular Volume 82.1 fL (80-94); Mean Platelet Vol. 10.8 fl (6.2-12.0); Monocyte# 0.85 X10^3/uL; Monocyte% 10.8 % (0-10); Neutrophil # 4.38 X10^3/uL (2.7-7.7); Neutrophil % 55.5 % (47-70); Platelet Count 237 K/mm3 (150-450); RBC Distribution Width CV 14.4 % (11.6-14.6); RBC Distribution Width SD 43.1 fl (35.1-43.9); Red Blood Count 5.15 M/mm3 (4.6-6.2); White Blood Count 7.9 K/mm3 (4.4-11.0)
[2018-10-02 06:15] LABS: POSITIVE COUNT NO; POSITIVE DIFFERENTIAL NO; POSITIVE MORPHOLOGY NO
[2018-10-02 06:38] VITALS: O2SAT 92
[2018-10-02 06:41] LABS: Anion Gap 9 (5-15); BUN 16 mg/dL (7-18); BUN/Creat Ratio 22.5 RATIO (10-20); Calcium,Total 8.8 mg/dL (8.5-10.1); Chloride 103 mmol/L (98-107); Creatinine, Serum 0.71 mg/dL (0.70-1.30); EST Glomerular Filtration Rate 117 mL/min (>60); Est Glom Filt Rate - Afr Amer 141 mL/min (>60); Estimated Creatinine Clearance 71.99 ml/min; Glucose 144 mg/dL (74-106); Potassium 4.2 mmol/L (3.5-5.1); Sodium Level 140 mmol/L (136-145)
[2018-10-02 06:45] LABS: Bedside Glucose 167 mg/dL (70-110)
[2018-10-02] MEDS: metFORMIN HCl 1,000 MG Tablet 1000 MG PO ×2 (08:34→16:52)
[2018-10-02] MEDS: Multivitamins,Ther W-Minerals Tablet 1 TABLET PO (08:34)
[2018-10-02] MEDS: Aspirin E.C. 81 MG Tablet PO (08:34)
[2018-10-02 10:00] VITALS: PULSE 105; RESP 18
--- NOTE | 2018-10-02 10:09 | PCM.PN.RX ---
<Castillo Dumontip D - Last Filed: 10/02/18 10:09> Progress Note - Pharmacy Subjective: TCU Admission Objective: Allergies hornet venom Allergy (Verified 09/08/18 18:16) Unknown Current Medications Generic Name Dose Route Start Last Admin Trade Name Freq PRN Reason Stop Dose Admin Acetaminophen 1,000 mg 10/01/18 16:19 Tylenol PO Q6H PRN MILD PAIN (1-3/10) Aspirin 81 mg 10/02/18 08:00 10/02/18 08:34 Ecotrin PO 81 mg DAILYCM [facility] Administration Atorvastatin Calcium 80 mg 10/01/18 22:00 10/01/18 21:10 Lipitor PO 80 mg QHS HOWIE Administration Bisacodyl 10 mg 10/01/18 16:24 Dulcolax RECTAL DAILY PRN Constipation Calamine/Phenol 1 applic 10/01/18 18:00 10/02/18 05:41 Calmoseptine Ointment TOPICAL 1 applicatio BID [facility]1983 Administration Protocol Clopidogrel Bisulfate 75 mg 10/02/18 06:00 10/02/18 05:37 Plavix PO 10/19/18 06:01 75 mg DAILY HOWIE Administration Enoxaparin Sodium 40 mg 10/02/18 06:00 10/02/18 05:37 Lovenox SC 40 mg DAILY@0600 [facility]1983 Administration Escitalopram Oxalate 10 mg 10/02/18 06:00 10/02/18 05:37 Lexapro PO 10 mg DAILY HOWIE Administration Lisinopril 40 mg 10/02/18 06:00 10/02/18 05:37 Zestril PO 40 mg DAILY HOWIE Administration Metformin HCl 1,000 mg 10/01/18 17:00 10/02/18 08:34 Glucophage PO 1,000 mg BIDCM [facility], [facility] Administration Multivitamins/Minerals 1 tablet 10/02/18 08:00 10/02/18 08:34 Multivitamin With Minerals PO 1 tablet DAILY@0800 [facility] Administration Nutritional Formula (Lactose Free) 120 ml 10/02/18 06:00 10/02/18 05:38 Glucerna Shake PO 120 ml 4X/DAY HOWIE Administration Nystatin 500,000 unit 10/01/18 17:00 10/02/18 05:37 Nystatin PO 10/08/18 17:01 500,000 unit 4X/DAY HOWIE Administration Nystatin 1 applic 10/01/18 22:00 10/02/18 05:38 Mycostatin Powder TOPICAL 1 applicatio TID HOWIE Administration Protocol Polyethylene Glycol 17 gm 10/02/18 06:00 10/02/18 05:41 Miralax PO Not Given DAILY [facility] Senna/Docusate Sodium 1 tablet 10/01/18 18:00 10/02/18 05:37 Senokot-S, Joy-Colace PO 1 tablet BID HOWIE Administration Tuberculin PPD 5 tu 10/02/18 10:00 Tubersol, Aplisol, Ppd ID 10/02/18 10:01 X1 ONE Tuberculin PPD 5 tu 10/09/18 10:00 Tubersol, Aplisol, Ppd ID 10/09/18 10:01 X1 ONE Problem List Right hemiparesis (Chronic) Dysphagia (Acute) Vital Signs Temp Pulse Resp BP Pulse Ox 97.8 F 102 H 18 118/69 92 10/01/18 14:56 10/01/18 14:56 10/01/18 14:56 10/01/18 14:56 10/02/18 06:38 Oxygen Delivery Method Room Air Weight: 90.718 kg Body Mass Index (BMI) 28.7 Finger Stick Blood Glucose 268 Sodium 140 mmol/L (136-145) 10/02/18 05:05 Potassium 4.2 mmol/L (3.5-5.1) 10/02/18 05:05 Chloride 103 mmol/L (98-107) 10/02/18 05:05 Carbon Dioxide 28.0 mmol/L (21.0-32.0) 10/02/18 05:05 Anion Gap 9 (5-15) 10/02/18 05:05 BUN 16 mg/dL (7-18) 10/02/18 05:05 Creatinine 0.71 mg/dL (0.70-1.30) 10/02/18 05:05 Est GFR (MDRD) Af Amer 141 mL/min (>60) 10/02/18 05:05 Est GFR (MDRD) Non-Af 117 mL/min (>60) 10/02/18 05:05 BUN/Creatinine Ratio 22.5 RATIO (10-20) H 10/02/18 05:05 Glucose 144 mg/dL (74-106) H 10/02/18 05:05 Assessment/Plan: 1) Pain APAP for mild pain. Continue to monitor prn medication use, daily pain scores. 2) Stroke ASA, atorvastatin, clopidogrel. Continue to monitor lipids, s/s stroke. 3) HTN Lisinopril. Continue to monitor BP/HR, renal function, electrolytes. 4) DM2 Metformin. Continue to monitor renal function, BGT. 5) Thrush Nystatin thru 2/3. Continue to monitor for thrush. 6) DVT PPx Enoxaparin daily. Continue to monitor for bleeding/clot. Psychotropic Medications: 7) Depression Escitalopram daily. Continue to monitor s/s depression. Unnecessary Medications: None Bowel Regimen: 8) Senna/s, PEG, prn bisacodyl. Continue to monitor prn medication use, for constipation/diarrhea. Date of Note:: 10/02/18 - Provider Comments Provider responsibility: Provider responsible to enter orders to implement recommendations <Miguel Foster Chi - Last Filed: 10/02/18 12:51> Progress Note - Pharmacy Subjective: [] Objective: Allergies hornet venom Allergy (Verified 09/08/18 18:16) Unknown Current Medications Generic Name Dose Route Start Last Admin Trade Name Freq PRN Reason Stop Dose Admin Acetaminophen 1,000 mg 10/01/18 16:19 Tylenol PO Q6H PRN MILD PAIN (1-3/10) Aspirin 81 mg 10/02/18 08:00 10/02/18 08:34 Ecotrin PO 81 mg DAILYCM HOWIE Administration Atorvastatin Calcium 80 mg 10/01/18 22:00 10/01/18 21:10 Lipitor PO 80 mg QHS HOWIE Administration Bisacodyl 10 mg 10/01/18 16:24 Dulcolax RECTAL DAILY PRN Constipation Calamine/Phenol 1 applic 10/01/18 18:00 10/02/18 05:41 Calmoseptine Ointment TOPICAL 1 applicatio BID HOWIE Administration Protocol Clopidogrel Bisulfate 75 mg 10/02/18 06:00 10/02/18 05:37 Plavix PO 10/19/18 06:01 75 mg DAILY HOWIE Administration Enoxaparin Sodium 40 mg 10/02/18 06:00 10/02/18 05:37 Lovenox SC 40 mg DAILY@0600 HOWIE Administration Escitalopram Oxalate 10 mg 10/02/18 06:00 10/02/18 05:37 Lexapro PO 10 mg DAILY HOWIE Administration Lisinopril 40 mg 10/02/18 06:00 10/02/18 05:37 Zestril PO 40 mg DAILY HOWIE Administration Metformin HCl 1,000 mg 10/01/18 17:00 10/02/18 08:34 Glucophage PO 1,000 mg BIDCM HOWIE Administration Multivitamins/Minerals 1 tablet 10/02/18 08:00 10/02/18 08:34 Multivitamin With Minerals PO 1 tablet DAILY@0800 HOWIE Administration Nutritional Formula (Lactose Free) 120 ml 10/02/18 06:00 10/02/18 11:09 Glucerna Shake PO 120 ml 4X/DAY HOWIE Administration Nystatin 500,000 unit 10/01/18 17:00 10/02/18 11:09 Nystatin PO 10/08/18 17:01 500,000 unit 4X/DAY HOWIE Administration Nystatin 1 applic 10/01/18 22:00 10/02/18 05:38 Mycostatin Powder TOPICAL 1 applicatio TID [facility] Administration Protocol Polyethylene Glycol 17 gm 10/02/18 06:00 10/02/18 05:41 Miralax PO Not Given DAILY [facility] Senna/Docusate Sodium 1 tablet 10/01/18 18:00 10/02/18 05:37 Senokot-S, Joy-Colace PO 1 tablet BID HOWIE Administration Tuberculin PPD 5 tu 10/09/18 10:00 Tubersol, Aplisol, Ppd ID 10/09/18 10:01 X1 ONE Problem List Right hemiparesis (Chronic) Dysphagia (Acute) Vital Signs Temp Pulse Resp BP Pulse Ox 97.8 F 105 H 18 118/69 92 10/01/18 14:56 10/02/18 10:00 10/02/18 10:00 10/01/18 14:56 10/02/18 06:38 Oxygen Delivery Method Room Air Weight: 90.718 kg Body Mass Index (BMI) 28.7 Finger Stick Blood Glucose 268 Sodium 140 mmol/L (136-145) 10/02/18 05:05 Potassium 4.2 mmol/L (3.5-5.1) 10/02/18 05:05 Chloride 103 mmol/L (98-107) 10/02/18 05:05 Carbon Dioxide 28.0 mmol/L (21.0-32.0) 10/02/18 05:05 Anion Gap 9 (5-15) 10/02/18 05:05 BUN 16 mg/dL (7-18) 10/02/18 05:05 Creatinine 0.71 mg/dL (0.70-1.30) 10/02/18 05:05 Est GFR (MDRD) Af Amer 141 mL/min (>60) 10/02/18 05:05 Est GFR (MDRD) Non-Af 117 mL/min (>60) 10/02/18 05:05 BUN/Creatinine Ratio 22.5 RATIO (10-20) H 10/02/18 05:05 Glucose 144 mg/dL (74-106) H 10/02/18 05:05 Assessment/Plan: Psychotropic Medications: Unnecessary Medications: Bowel Regimen: - Provider Comments Provider responsibility: Provider responsible to enter orders to implement recommendations Provider Comments to Recommendations by Pharmacy: Agree
--- NOTE | 2018-10-02 10:17 | PHA.CONS_ITS ---
<Castillo Dumontip D - Last Filed: 10/02/18 10:09> Progress Note - Pharmacy Subjective: TCU Admission Objective: Allergies hornet venom Allergy (Verified 09/08/18 18:16) Unknown Current Medications Generic Name Dose Route Start Last Admin Trade Name Freq PRN Reason Stop Dose Admin Acetaminophen 1,000 mg 10/01/18 16:19 Tylenol PO Q6H PRN MILD PAIN (1-3/10) Aspirin 81 mg 10/02/18 08:00 10/02/18 08:34 Ecotrin PO 81 mg DAILYCM [facility] Administration Atorvastatin Calcium 80 mg 10/01/18 22:00 10/01/18 21:10 Lipitor PO 80 mg QHS HOWIE Administration Bisacodyl 10 mg 10/01/18 16:24 Dulcolax RECTAL DAILY PRN Constipation Calamine/Phenol 1 applic 10/01/18 18:00 10/02/18 05:41 Calmoseptine Ointment TOPICAL 1 applicatio BID [facility] Administration Protocol Clopidogrel Bisulfate 75 mg 10/02/18 06:00 10/02/18 05:37 Plavix PO 10/19/18 06:01 75 mg DAILY HOWIE Administration Enoxaparin Sodium 40 mg 10/02/18 06:00 10/02/18 05:37 Lovenox SC 40 mg DAILY@0600 [facility] Administration Escitalopram Oxalate 10 mg 10/02/18 06:00 10/02/18 05:37 Lexapro PO 10 mg DAILY HOWIE Administration Lisinopril 40 mg 10/02/18 06:00 10/02/18 05:37 Zestril PO 40 mg DAILY HOWIE Administration Metformin HCl 1,000 mg 10/01/18 17:00 10/02/18 08:34 Glucophage PO 1,000 mg BIDCM [facility] Administration Multivitamins/Minerals 1 tablet 10/02/18 08:00 10/02/18 08:34 Multivitamin With Minerals PO 1 tablet DAILY@0800 [facility] Administration Nutritional Formula (Lactose Free) 120 ml 10/02/18 06:00 10/02/18 05:38 Glucerna Shake PO 120 ml 4X/DAY HOWIE Administration Nystatin 500,000 unit 10/01/18 17:00 10/02/18 05:37 Nystatin PO 10/08/18 17:01 500,000 unit 4X/DAY HOWIE Administration Nystatin 1 applic 10/01/18 22:00 10/02/18 05:38 Mycostatin Powder TOPICAL 1 applicatio TID HOWIE Administration Protocol Polyethylene Glycol 17 gm 10/02/18 06:00 10/02/18 05:41 Miralax PO Not Given DAILY [facility] Senna/Docusate Sodium 1 tablet 10/01/18 18:00 10/02/18 05:37 Senokot-S, Joy-Colace PO 1 tablet BID HOWIE Administration Tuberculin PPD 5 tu 10/02/18 10:00 Tubersol, Aplisol, Ppd ID 10/02/18 10:01 X1 ONE Tuberculin PPD 5 tu 10/09/18 10:00 Tubersol, Aplisol, Ppd ID 10/09/18 10:01 X1 ONE Problem List Right hemiparesis (Chronic) Dysphagia (Acute) Vital Signs Temp Pulse Resp BP Pulse Ox 97.8 F 102 H 18 118/69 92 10/01/18 14:56 10/01/18 14:56 10/01/18 14:56 10/01/18 14:56 10/02/18 06:38 Oxygen Delivery Method Room Air Weight: 90.718 kg Body Mass Index (BMI) 28.7 Finger Stick Blood Glucose 268 Sodium 140 mmol/L (136-145) 10/02/18 05:05 Potassium 4.2 mmol/L (3.5-5.1) 10/02/18 05:05 Chloride 103 mmol/L (98-107) 10/02/18 05:05 Carbon Dioxide 28.0 mmol/L (21.0-32.0) 10/02/18 05:05 Anion Gap 9 (5-15) 10/02/18 05:05 BUN 16 mg/dL (7-18) 10/02/18 05:05 Creatinine 0.71 mg/dL (0.70-1.30) 10/02/18 05:05 Est GFR (MDRD) Af Amer 141 mL/min (>60) 10/02/18 05:05 Est GFR (MDRD) Non-Af 117 mL/min (>60) 10/02/18 05:05 BUN/Creatinine Ratio 22.5 RATIO (10-20) H 10/02/18 05:05 Glucose 144 mg/dL (74-106) H 10/02/18 05:05 Assessment/Plan: 1) Pain APAP for mild pain. Continue to monitor prn medication use, daily pain sc ores. 2) Stroke ASA, atorvastatin, clopidogrel. Continue to monitor lipids, s/s stroke. 3) HTN Lisinopril. Continue to monitor BP/HR, renal function, electrolytes. 4) DM2 Metformin. Continue to monitor renal function, BGT. 5) Thrush Nystatin thru 2/3. Continue to monitor for thrush. 6) DVT PPx Enoxaparin daily. Continue to monitor for bleeding/clot. Psychotropic Medications: 7) Depression Escitalopram daily. Continue to monitor s/s depression. Unnecessary Medications: None Bowel Regimen: 8) Senna/s, PEG, prn bisacodyl. Continue to monitor prn medication use, for constipation/diarrhea. Date of Note:: 10/02/18 - Provider Comments Provider responsibility: Provider responsible to enter orders to implement recommendations <Miguel Foster Chi - Last Filed: 10/02/18 12:51> Progress Note - Pharmacy Subjective: [] Objective: Allergies hornet venom Allergy (Verified 09/08/18 18:16) Unknown Current Medications Generic Name Dose Route Start Last Admin Trade Name Freq PRN Reason Stop Dose Admin Acetaminophen 1,000 mg 10/01/18 16:19 Tylenol PO Q6H PRN MILD PAIN (1-3/10) Aspirin 81 mg 10/02/18 08:00 10/02/18 08:34 Ecotrin PO 81 mg DAILYCM HOWIE Administration Atorvastatin Calcium 80 mg 10/01/18 22:00 10/01/18 21:10 Lipitor PO 80 mg QHS HOWIE Administration Bisacodyl 10 mg 10/01/18 16:24 Dulcolax RECTAL DAILY PRN Constipation Calamine/Phenol 1 applic 10/01/18 18:00 10/02/18 05:41 Calmoseptine Ointment TOPICAL 1 applicatio BID HOWIE Administration Protocol Clopidogrel Bisulfate 75 mg 10/02/18 06:00 10/02/18 05:37 Plavix PO 10/19/18 06:01 75 mg DAILY HOWIE Administration Enoxaparin Sodium 40 mg 10/02/18 06:00 10/02/18 05:37 Lovenox SC 40 mg DAILY@0600 HOWIE Administration Escitalopram Oxalate 10 mg 10/02/18 06:00 10/02/18 05:37 Lexapro PO 10 mg DAILY HOWIE Administration Lisinopril 40 mg 10/02/18 06:00 10/02/18 05:37 Zestril PO 40 mg DAILY HOWIE Administration Metformin HCl 1,000 mg 10/01/18 17:00 10/02/18 08:34 Glucophage PO 1,000 mg BIDCM HOWIE Administration Multivitamins/Minerals 1 tablet 10/02/18 08:00 10/02/18 08:34 Multivitamin With Minerals PO 1 tablet DAILY@0800 HOWIE Administration Nutritional Formula (Lactose Free) 120 ml 10/02/18 06:00 10/02/18 11:09 Glucerna Shake PO 120 ml 4X/DAY HOWIE Administration Nystatin 500,000 unit 10/01/18 17:00 10/02/18 11:09 Nystatin PO 10/08/18 17:01 500,000 unit 4X/DAY HOWIE Administration Nystatin 1 applic 10/01/18 22:00 10/02/18 05:38 Mycostatin Powder TOPICAL 1 applicatio TID HOWIE Administration Protocol Polyethylene Glycol 17 gm 10/02/18 06:00 10/02/18 05:41 Miralax PO Not Given DAILY [facility] Senna/Docusate Sodium 1 tablet 10/01/18 18:00 10/02/18 05:37 Senokot-S, Joy-Colace PO 1 tablet BID HOWIE Administration Tuberculin PPD 5 tu 10/09/18 10:00 Tubersol, Aplisol, Ppd ID 10/09/18 10:01 X1 ONE Problem List Right hemiparesis (Chronic) Dysphagia (Acute) Vital Signs Temp Pulse Resp BP Pulse Ox 97.8 F 105 H 18 118/69 92 10/01/18 14:56 10/02/18 10:00 10/02/18 10:00 10/01/18 14:56 10/02/18 06:38 Oxygen Delivery Method Room Air Weight: 90.718 kg Body Mass Index (BMI) 28.7 Finger Stick Blood Glucose 268 Sodium 140 mmol/L (136-145) 10/02/18 05:05 Potassium 4.2 mmol/L (3.5-5.1) 10/02/18 05:05 Chloride 103 mmol/L (98-107) 10/02/18 05:05 Carbon Dioxide 28.0 mmol/L (21.0-32.0) 10/02/18 05:05 Anion Gap 9 (5-15) 10/02/18 05:05 BUN 16 mg/dL (7-18) 10/02/18 05:05 Creatinine 0.71 mg/dL (0.70-1.30) 10/02/18 05:05 Est GFR (MDRD) Af Amer 141 mL/min (>60) 10/02/18 05:05 Est GFR (MDRD) Non-Af 117 mL/min (>60) 10/02/18 05:05 BUN/Creatinine Ratio 22.5 RATIO (10-20) H 10/02/18 05:05 Glucose 144 mg/dL (74-106) H 10/02/18 05:05 Assessment/Plan: Psychotropic Medications: Unnecessary Medications: Bowel Regimen: - Provider Comments Provider responsibility: Provider responsible to enter orders to implement recommendations Provider Comments to Recommendations by Pharmacy: Agree
[2018-10-02 10:51] LABS: Bedside Glucose 192 mg/dL (70-110)
[2018-10-02] MEDS: Tuberculin,Purif.prot.deriv. 50 TU/ML Vial 5 ML ID (11:10)
[2018-10-02 15:40] VITALS: BP 113/65; PULSE 107; RESP 18; TEMP 36.4; O2SAT 92
--- NOTE | 2018-10-02 16:49 | CASEMGMT ---
Reviewed and approved attached [employer]IL [employer] student documentation. ELSY Banegas
[2018-10-02 17:11] LABS: Bedside Glucose 189 mg/dL (70-110)
[2018-10-02] MEDS: Atorvastatin Calcium 80 MG Tablet PO (20:41)
[2018-10-03] MEDS: Glucerna Shake 120 ML LIQUID PO ×3 (06:17→21:45)
[2018-10-03] MEDS: Senna/Docusate Sodium 1 Tablet PO ×2 (06:17→18:34)
[2018-10-03] MEDS: Escitalopram Oxalate 10 MG Tablet PO (06:17)
[2018-10-03] MEDS: Polyethylene Glycol 3350 17 GM PACKET PO (06:17)
[2018-10-03] MEDS: Lisinopril 40 MG Tablet PO (06:17)
[2018-10-03] MEDS: NYSTATIN 500,000 UNIT/5 ML UDC 500000 UNIT PO ×4 (06:18→21:45)
[2018-10-03] MEDS: Clopidogrel Bisulfate 75 MG Tablet PO (06:18)
[2018-10-03] MEDS: Enoxaparin 40 MG/0.4 ML Syringe SC (06:19)
[2018-10-03] MEDS: Menthol/Lanolin/Calamine/Znox 113 GM Tube 1 APPLIC TOPICAL ×2 (06:23→18:35)
[2018-10-03] MEDS: Nystatin Powder 15gm Bottle 1 APPLIC TOPICAL ×3 (06:23→21:45)
[2018-10-03 07:06] LABS: Bedside Glucose 170 mg/dL (70-110)
[2018-10-03] MEDS: Aspirin E.C. 81 MG Tablet PO (08:28)
[2018-10-03] MEDS: metFORMIN HCl 1,000 MG Tablet 1000 MG PO ×2 (08:28→18:34)
--- NOTE | 2018-10-03 11:25 | NURSING ---
NO to D/C [facility].
[2018-10-03 11:45] LABS: Bedside Glucose 203 mg/dL (70-110)
[2018-10-03 15:33] VITALS: BP 109/66; PULSE 103; RESP 18; TEMP 37; O2SAT 95
[2018-10-03 17:10] LABS: Bedside Glucose 153 mg/dL (70-110)
[2018-10-03 21:15] LABS: Bedside Glucose 213 mg/dL (70-110)
[2018-10-03] MEDS: Atorvastatin Calcium 80 MG Tablet PO (21:45)
[2018-10-03 21:49] VITALS: PULSE 95; O2SAT 97
[2018-10-04] MEDS: Menthol/Lanolin/Calamine/Znox 113 GM Tube 1 APPLIC TOPICAL ×2 (05:21→17:54)
[2018-10-04] MEDS: Escitalopram Oxalate 10 MG Tablet PO (05:22)
[2018-10-04] MEDS: Glucerna Shake 120 ML LIQUID PO ×3 (05:22→21:21)
[2018-10-04] MEDS: Enoxaparin 40 MG/0.4 ML Syringe SC (05:22)
[2018-10-04] MEDS: Lisinopril 40 MG Tablet PO (05:23)
[2018-10-04] MEDS: Senna/Docusate Sodium 1 Tablet PO ×2 (05:23→17:53)
[2018-10-04] MEDS: Clopidogrel Bisulfate 75 MG Tablet PO (05:23)
[2018-10-04] MEDS: Nystatin Powder 15gm Bottle 1 APPLIC TOPICAL ×3 (05:23→21:21)
[2018-10-04] MEDS: NYSTATIN 500,000 UNIT/5 ML UDC 500000 UNIT PO ×4 (05:23→21:21)
[2018-10-04 06:50] LABS: Bedside Glucose 169 mg/dL (70-110)
[2018-10-04] MEDS: metFORMIN HCl 1,000 MG Tablet 1000 MG PO ×2 (08:48→17:53)
[2018-10-04] MEDS: Aspirin E.C. 81 MG Tablet PO (08:48)
[2018-10-04 11:40] LABS: Bedside Glucose 175 mg/dL (70-110)
[2018-10-04 16:00] VITALS: BP 110/52; PULSE 105; RESP 18; TEMP 36.4; O2SAT 91
[2018-10-04 17:31] LABS: Bedside Glucose 143 mg/dL (70-110)
[2018-10-04 19:51] VITALS: PULSE 86; RESP 14
[2018-10-04] MEDS: Atorvastatin Calcium 80 MG Tablet PO (21:21)
[2018-10-04 21:36] LABS: Bedside Glucose 194 mg/dL (70-110)
[2018-10-05] MEDS: Senna/Docusate Sodium 1 Tablet PO ×2 (04:49→18:24)
[2018-10-05] MEDS: Menthol/Lanolin/Calamine/Znox 113 GM Tube 1 APPLIC TOPICAL ×2 (04:50→18:23)
[2018-10-05] MEDS: Nystatin Powder 15gm Bottle 1 APPLIC TOPICAL ×3 (04:50→21:59)
[2018-10-05] MEDS: NYSTATIN 500,000 UNIT/5 ML UDC 500000 UNIT PO ×4 (04:59→21:59)
[2018-10-05] MEDS: Enoxaparin 40 MG/0.4 ML Syringe SC (05:01)
[2018-10-05] MEDS: Glucerna Shake 120 ML LIQUID PO ×2 (05:02→21:58)
[2018-10-05] MEDS: Clopidogrel Bisulfate 75 MG Tablet PO (05:02)
[2018-10-05] MEDS: Escitalopram Oxalate 10 MG Tablet PO (05:02)
[2018-10-05] MEDS: Lisinopril 40 MG Tablet PO (05:02)
[2018-10-05 06:51] LABS: Bedside Glucose 162 mg/dL (70-110)
[2018-10-05] MEDS: metFORMIN HCl 1,000 MG Tablet 1000 MG PO ×2 (10:49→18:24)
[2018-10-05] MEDS: Aspirin E.C. 81 MG Tablet PO (10:50)
[2018-10-05 11:46] LABS: Bedside Glucose 300 mg/dL (70-110)
[2018-10-05 16:00] VITALS: BP 136/75; PULSE 101; RESP 16; TEMP 36.2; O2SAT 94
[2018-10-05 17:16] LABS: Bedside Glucose 136 mg/dL (70-110)
[2018-10-05 21:16] LABS: Bedside Glucose 216 mg/dL (70-110)
[2018-10-05] MEDS: Atorvastatin Calcium 80 MG Tablet PO (21:57)
[2018-10-06] MEDS: Clopidogrel Bisulfate 75 MG Tablet PO (05:52)
[2018-10-06] MEDS: Glucerna Shake 120 ML LIQUID PO ×2 (05:52→11:05)
[2018-10-06] MEDS: Senna/Docusate Sodium 1 Tablet PO ×2 (05:52→18:48)
[2018-10-06] MEDS: NYSTATIN 500,000 UNIT/5 ML UDC 500000 UNIT PO ×4 (05:52→20:18)
[2018-10-06] MEDS: Escitalopram Oxalate 10 MG Tablet PO (05:52)
[2018-10-06] MEDS: Polyethylene Glycol 3350 17 GM PACKET PO (05:52)
[2018-10-06] MEDS: Enoxaparin 40 MG/0.4 ML Syringe SC (05:52)
[2018-10-06] MEDS: Lisinopril 40 MG Tablet PO (05:53)
[2018-10-06] MEDS: Menthol/Lanolin/Calamine/Znox 113 GM Tube 1 APPLIC TOPICAL ×2 (06:01→18:56)
[2018-10-06] MEDS: Nystatin Powder 15gm Bottle 1 APPLIC TOPICAL ×3 (06:02→20:18)
[2018-10-06 06:51] LABS: Bedside Glucose 171 mg/dL (70-110)
[2018-10-06] MEDS: metFORMIN HCl 1,000 MG Tablet 1000 MG PO ×2 (09:48→18:48)
[2018-10-06] MEDS: Aspirin E.C. 81 MG Tablet PO (09:48)
--- NOTE | 2018-10-06 10:11 | CASEMGMT ---
Brief interview for mental status (BIMS) and resident mood interview (PHQ-9) completed on this day. BIMS score 10/15. PHQ-9 score 11/29
[2018-10-06 11:01] LABS: Bedside Glucose 247 mg/dL (70-110)
--- NOTE | 2018-10-06 12:57 | CASEMGMT ---
Plan of care meeting held. Resident present as well as resident spouse. No discharge date set at this time. Resident to continue with further care and treatment on the Transitional Care Unit. Resident spouse is hoping that resident will be able to discharge back to home with spouse and possibly some further assistance within the home. Resident spouse reporting that resident would be able to discharge to [id number] that is a 1st floor condo with x1 step to enter the home. Resident aware that currently resident is requiring a lot of assistance for task and that discharge recommendation is unclear at this time. Support given. Will continue to follow. Jamie CHIN, CHUN
--- NOTE | 2018-10-06 15:18 | PCM.TCUNOT ---
Subjective: Resident seen in room, sitting in chair. His Nohemy is present. She asked about his insulin being discontinued. I let her know Janusz's blood sugars have been doing well without insulin, only Metformin 1000MG twice daily, and that is why it was stopped. Janusz has been progressing at moderate pace. He is working with PT/OT/[employer], he continues to have some hypersomnolence, but that has improved as well. I asked Nohemy if Janusz used to talk softly before the stroke, and she said no, but he talks loudly enough to be understood. I gave them both encouragement, and support. Vitals/I&O's: Vital Signs Temp Pulse Resp BP Pulse Ox 97.1 F L 101 H 16 136/75 H 94 10/05/18 16:00 10/05/18 16:00 10/05/18 16:00 10/05/18 16:00 10/05/18 16:00 Oxygen Delivery Method Room Air Weight: 91.342 kg Body Mass Index (BMI) 28.7 Finger Stick Blood Glucose 268 Intake and Output for Last 24 Hours 10/04/18 10/05/18 10/06/18 23:59 23:59 23:59 Intake Total 660 / 660 780 / 780 900 / 900 Balance 660 / 660 780 / 780 900 / 900 Laboratory Results 10/05/18 17:09: POC Glucose 136 H 10/05/18 21:08: POC Glucose 216 H 10/06/18 06:37: POC Glucose 171 H 10/06/18 10:38: POC Glucose 247 H Past Medical History Past Medical History (Chronic Problems): Chronic Problems HTN (hypertension) (Chronic) HLD (hyperlipidemia) (Chronic) Obesity (BMI 30.0-34.9) (Chronic) Right hemiparesis (Chronic) Allergies hornet venom Allergy (Verified 09/08/18 18:16) Unknown Home Medications: Ambulatory Orders Medication Instructions Recorded Aspirin [Aspir 81] 81 mg PO DAILY 09/08/18 Atorvastatin Calcium 80 mg PO QHS 09/08/18 Clopidogrel Bisulfate [Plavix] 75 mg PO DAILY 09/08/18 Bisacodyl [Dulcolax] 10 mg RECTAL DAILY PRN 10/01/18 Enoxaparin [Lovenox] 40 mg SC DAILY@0600 10/01/18 Escitalopram Oxalate [Lexapro] 10 mg PO DAILY 10/01/18 Insulin Lispro [Humalog KwikPen] See Protocol SC ACHS 10/01/18 Lisinopril [Zestril] 40 mg PO DAILY 10/01/18 Menthol/Lanolin/Calamine/Znox 1 applic TOPICAL BID 10/01/18 [Calmoseptine Ointment] Metformin HCl [Glucophage] 1,000 mg PO BIDCM 10/01/18 Multivitamins,Ther W-Minerals 1 tablet PO DAILY@0800 10/01/18 [Multivitamin With Minerals] Nystatin 500,000 unit PO 4X/DAY 10/01/18 Nystatin Powder [Mycostatin Powder] 1 applic TOPICAL TID 10/01/18 Surgical History: no surgical history, - - Patient denies any surgical history. Psychiatric History: No pertinent psych hx Lives: Spouse/ Significant Other Smoking Status: Never smoker Tobacco Use: Non-smoker Alcohol: None Drugs: None - *Family History Maternal History Items: - - Patient's mother at age 76 with history of cancer. Paternal History Items: - - Patient's father at age 66 with myocardial infarction, current history of diabetes mellitus. Review of Systems Constitutional: Denies: Chills, Fever, Weight Change HEENT: Denies: Head Aches, Sinus Congestion, Sinus Drainage Cardiovascular: Denies: Chest Pain, Palpitations Respiratory: Denies: Cough, Shortness of breath at rest, Sputum production Gastrointestinal: Denies: Abdominal Pain, Nausea, Vomiting Genitourinary: Denies: Dysuria Musculoskeletal: Denies: Joint Pain, Joint Tenderness Skin: Denies: Rash, Wounds Neurological: Denies: Numbness, Tingling, Focal weakness Psychiatric: Denies: Anxiety, Depression, Homicidal Ideations, Suicidal Ideations Hematologic/ Lymphatic: Denies: Easy Bruising, Easy Bleeding Patient Problems: Active and Suspected Problems Dysphagia (Acute) - Physical Exam General: Alert, Oriented x3, Cooperative HEENT: Atraumatic, PERRLA, EOMI, Normocephalic Neck: Supple, No JVD, Negative Carotid Bruits Lungs: Clear to auscultation, Normal air movement Cardiovascular: Regular rate, No murmurs Abdomen: Bowel Sounds Present, Soft, Non Tender Extremities: No edema, Capillary Refill Less than 3 Seconds Skin: No rashes, No breakdown Musculoskeletal: No Tenderness to Palpation of Joints or Extremities Neurological: Cranial nerves II-XII grossly intact, - - Right hemiparesis. Psych/Mental Status: Normal Affect, Appropriate Vital Signs Temp Pulse Resp BP Pulse Ox 97.1 F L 101 H 16 136/75 H 94 10/05/18 16:00 10/05/18 16:00 10/05/18 16:00 10/05/18 16:00 10/05/18 16:00 Oxygen Delivery Method Room Air Weight: 91.342 kg Body Mass Index (BMI) 28.7 Finger Stick Blood Glucose 268 Intake and Output for Last 24 Hours 10/04/18 10/05/18 10/06/18 23:59 23:59 23:59 Intake Total 660 / 660 780 / 780 900 / 900 Balance 660 / 660 780 / 780 900 / 900 POC Glucose 10/06/18 10/06/18 10/05/18 10:38 06:37 21:08 POC Glucose 247 H 171 H 216 H 10/05/18 17:09 POC Glucose 136 H Assessment/Plan All Active Problems Left acute arterial ischemic stroke, MCA (middle cerebral artery) (Acute) Diabetes mellitus, type II (Acute) Dysphagia (Acute) 68 year old male with below past medical hospitalized for Left MCA stroke, complicated by hypersomnolence, admitted to TCU with debility, here for rebhabiliation, strengthening, prior to discharge home with spouse. Debility - PT/OT. Dysphagia - ST. Pain - Tylenol 1000MG Q6H PRN mild pain. Bowel - Miralax 17GM daily, Senna/colace 1 tablet BID, Dulcolax 10MG ID daily PRN. Pneumonia vaccination - Administer Prevnar 13 and/or Pneumovax 23 as necessary. DVT prophylaxis - Lovenox 40MG SC daily. Stroke - Aspirin 81MG daily, Plavix 75MG daily thru 10/19/2018. Hyperlipidemia - Atorvastatin 80MG QHS. Depression - Lexapro 10MG daily. Hypertension - Lisinopril 40MG daily. Skin irritation - Calmoseptine BID. Diabetes Mellitus II - Metformin 1000MG BID. Nutrition - Glucerna 120ML 4x/day. Tinea Corporis - Nystatin powder TID. Thrush - Nystatin 500,000 units PO 4x/day thru 10/08/2018.
--- NOTE | 2018-10-06 15:22 | PN_ITS ---
Subjective: Resident seen in room, sitting in chair. His Nohemy is present. She asked about his insulin being discontinued. I let her know Janusz's blood sugars have been doing well without insulin, only Metformin 1000MG twice daily, and that is why it was stopped. Janusz has been progressing at moderate pace. He is working with PT/OT/B[employer]ING [employer]ER, he continues to have some hypersomnolence, but that has improved as well. I asked Nohemy if Janusz used to talk softly before the stroke, and she said no, but he talks loudly enough to be understood. I gave them both encouragement, and support. Vitals/I&O's: Vital Signs Temp Pulse Resp BP Pulse Ox 97.1 F L 101 H 16 136/75 H 94 10/05/18 16:00 10/05/18 16:00 10/05/18 16:00 10/05/18 16:00 10/05/18 16:00 Oxygen Delivery Method Room Air Weight: 91.342 kg Body Mass Index (BMI) 28.7 Finger Stick Blood Glucose 268 Intake and Output for Last 24 Hours 10/04/18 10/05/18 10/06/18 23:59 23:59 23:59 Intake Total 660 / 660 780 / 780 900 / 900 Balance 660 / 660 780 / 780 900 / 900 Laboratory Results 10/05/18 17:09: POC Glucose 136 H 10/05/18 21:08: POC Glucose 216 H 10/06/18 06:37: POC Glucose 171 H 10/06/18 10:38: POC Glucose 247 H Past Medical History Past Medical History (Chronic Problems): Chronic Problems HTN (hypertension) (Chronic) HLD (hyperlipidemia) (Chronic) Obesity (BMI 30.0-34.9) (Chronic) Right hemiparesis (Chronic) Allergies hornet venom Allergy (Verified 09/08/18 18:16) Unknown Home Medications: Ambulatory Orders Medication Instructions Recorded Aspirin [Aspir 81] 81 mg PO DAILY 09/08/18 Atorvastatin Calcium 80 mg PO QHS 09/08/18 Clopidogrel Bisulfate [Plavix] 75 mg PO DAILY 09/08/18 Bisacodyl [Dulcolax] 10 mg RECTAL DAILY PRN 10/01/18 Enoxaparin [Lovenox] 40 mg SC DAILY@0600 10/01/18 Escitalopram Oxalate [Lexapro] 10 mg PO DAILY 10/01/18 Insulin Lispro [Humalog KwikPen] See Protocol SC ACHS 10/01/18 Lisinopril [Zestril] 40 mg PO DAILY 10/01/18 Menthol/Lanolin/Calamine/Znox 1 applic TOPICAL BID 10/01/18 [Calmoseptine Ointment] Metformin HCl [Glucophage] 1,000 mg PO BIDCM 10/01/18 Multivitamins,Ther W-Minerals 1 tablet PO DAILY@0800 10/01/18 [Multivitamin With Minerals] Nystatin 500,000 unit PO 4X/DAY 10/01/18 Nystatin Powder [Mycostatin Powder] 1 applic TOPICAL TID 10/01/18 Surgical History: no surgical history, - - Patient denies any surgical history. Psychiatric History: No pertinent psych hx Lives: Spouse/ Significant Other Smoking Status: Never smoker Tobacco Use: Non-smoker Alcohol: None Drugs: None - *Family History Maternal History Items: - - Patient's mother at age 76 with history of cancer. Paternal History Items: - - Patient's father at age 66 with myocardial infarction, current history of diabetes mellitus. Review of Systems Constitutional: Denies: Chills, Fever, Weight Change HEENT: Denies: Head Aches, Sinus Congestion, Sinus Drainage Cardiovascular: Denies: Chest Pain, Palpitations Respiratory: Denies: Cough, Shortness of breath at rest, Sputum production Gastrointestinal: Denies: Abdominal Pain, Nausea, Vomiting Genitourinary: Denies: Dysuria Musculoskeletal: Denies: Joint Pain, Joint Tenderness Skin: Denies: Rash, Wounds Neurological: Denies: Numbness, Tingling, Focal weakness Psychiatric: Denies: Anxiety, Depression, Homicidal Ideations, Suicidal Ideations Hematologic/ Lymphatic: Denies: Easy Bruising, Easy Bleeding Patient Problems: Active and Suspected Problems Dysphagia (Acute) - Physical Exam General: Alert, Oriented x3, Cooperative HEENT: Atraumatic, PERRLA, EOMI, Normocephalic Neck: Supple, No JVD, Negative Carotid Bruits Lungs: Clear to auscultation, Normal air movement Cardiovascular: Regular rate, No murmurs Abdomen: Bowel Sounds Present, Soft, Non Tender Extremities: No edema, Capillary Refill Less than 3 Seconds Skin: No rashes, No breakdown Musculoskeletal: No Tenderness to Palpation of Joints or Extremities Neurological: Cranial nerves II-XII grossly intact, - - Right hemiparesis. Psych/Mental Status: Normal Affect, Appropriate Vital Signs Temp Pulse Resp BP Pulse Ox 97.1 F L 101 H 16 136/75 H 94 10/05/18 16:00 10/05/18 16:00 10/05/18 16:00 10/05/18 16:00 10/05/18 16:00 Oxygen Delivery Method Room Air Weight: 91.342 kg Body Mass Index (BMI) 28.7 Finger Stick Blood Glucose 268 Intake and Output for Last 24 Hours 10/04/18 10/05/18 10/06/18 23:59 23:59 23:59 Intake Total 660 / 660 780 / 780 900 / 900 Balance 660 / 660 780 / 780 900 / 900 POC Glucose 10/06/18 10/06/18 10/05/18 10:38 06:37 21:08 POC Glucose 247 H 171 H 216 H 10/05/18 17:09 POC Glucose 136 H Assessment/Plan All Active Problems Left acute arterial ischemic stroke, MCA (middle cerebral artery) (Acute) Diabetes mellitus, type II (Acute) Dysphagia (Acute) 68 year old male with below past medical hospitalized for Left MCA stroke, complicated by hypersomnolence, admitted to TCU with debility, here for rebhabiliation, strengthening, prior to discharge home with spouse. * Debility - PT/OT. * Dysphagia - ST. * Pain - Tylenol 1000MG Q6H PRN mild pain. * Bowel - Miralax 17GM daily, Senna/colace 1 tablet BID, Dulcolax 10MG VT daily PRN. * Pneumonia vaccination - Administer Prevnar 13 and/or Pneumovax 23 as necessary. * DVT prophylaxis - Lovenox 40MG SC daily. * Stroke - Aspirin 81MG daily, Plavix 75MG daily thru 10/19/2018. * Hyperlipidemia - Atorvastatin 80MG QHS. * Depression - Lexapro 10MG daily. * Hypertension - Lisinopril 40MG daily. * Skin irritation - Calmoseptine BID. * Diabetes Mellitus II - Metformin 1000MG BID. * Nutrition - Glucerna 120ML 4x/day. * Tinea Corporis - Nystatin powder TID. * Thrush - Nystatin 500,000 units PO 4x/day thru 10/08/2018.
[2018-10-06 15:47] VITALS: BP 108/60; PULSE 98; RESP 18; TEMP 36.7; O2SAT 95
[2018-10-06 17:01] LABS: Bedside Glucose 159 mg/dL (70-110)
[2018-10-06] MEDS: Atorvastatin Calcium 80 MG Tablet PO (20:06)
[2018-10-06 20:30] VITALS: PULSE 111; RESP 18; O2SAT 95
[2018-10-06 21:31] LABS: Bedside Glucose 208 mg/dL (70-110)
[2018-10-07] MEDS: Polyethylene Glycol 3350 17 GM PACKET PO (05:19)
[2018-10-07] MEDS: Enoxaparin 40 MG/0.4 ML Syringe SC (05:19)
[2018-10-07] MEDS: NYSTATIN 500,000 UNIT/5 ML UDC 500000 UNIT PO ×4 (05:19→21:44)
[2018-10-07] MEDS: Lisinopril 40 MG Tablet PO (05:20)
[2018-10-07] MEDS: Glucerna Shake 120 ML LIQUID PO ×3 (05:20→18:41)
[2018-10-07] MEDS: Escitalopram Oxalate 10 MG Tablet PO (05:20)
[2018-10-07] MEDS: Senna/Docusate Sodium 1 Tablet PO ×2 (05:20→18:41)
[2018-10-07] MEDS: Clopidogrel Bisulfate 75 MG Tablet PO (05:20)
[2018-10-07] MEDS: Menthol/Lanolin/Calamine/Znox 113 GM Tube 1 APPLIC TOPICAL ×2 (05:24→18:46)
[2018-10-07] MEDS: Nystatin Powder 15gm Bottle 1 APPLIC TOPICAL ×3 (05:26→21:43)
[2018-10-07 07:11] LABS: Bedside Glucose 154 mg/dL (70-110)
[2018-10-07 10:00] VITALS: PULSE 115; O2SAT 91
[2018-10-07] MEDS: metFORMIN HCl 1,000 MG Tablet 1000 MG PO ×2 (10:00→18:41)
[2018-10-07] MEDS: Aspirin E.C. 81 MG Tablet PO (10:00)
[2018-10-07 11:41] LABS: Bedside Glucose 200 mg/dL (70-110)
[2018-10-07 16:00] VITALS: BP 101/63; PULSE 99; RESP 14; TEMP 36.8; O2SAT 91
[2018-10-07 17:16] LABS: Bedside Glucose 176 mg/dL (70-110)
[2018-10-07 21:41] LABS: Bedside Glucose 213 mg/dL (70-110)
[2018-10-07] MEDS: Atorvastatin Calcium 80 MG Tablet PO (21:43)
[2018-10-08] MEDS: Glucerna Shake 120 ML LIQUID PO ×3 (06:59→18:42)
[2018-10-08] MEDS: Menthol/Lanolin/Calamine/Znox 113 GM Tube 1 APPLIC TOPICAL ×2 (06:59→18:48)
[2018-10-08] MEDS: NYSTATIN 500,000 UNIT/5 ML UDC 500000 UNIT PO ×3 (07:00→18:43)
[2018-10-08] MEDS: Nystatin Powder 15gm Bottle 1 APPLIC TOPICAL ×3 (07:00→21:02)
[2018-10-08] MEDS: Escitalopram Oxalate 10 MG Tablet PO (07:00)
[2018-10-08] MEDS: Clopidogrel Bisulfate 75 MG Tablet PO (07:01)
[2018-10-08] MEDS: Senna/Docusate Sodium 1 Tablet PO ×2 (07:01→18:43)
[2018-10-08] MEDS: Lisinopril 40 MG Tablet PO (07:01)
[2018-10-08] MEDS: Enoxaparin 40 MG/0.4 ML Syringe SC (07:05)
[2018-10-08 07:06] LABS: Bedside Glucose 184 mg/dL (70-110)
[2018-10-08] MEDS: Aspirin E.C. 81 MG Tablet PO (09:42)
[2018-10-08] MEDS: metFORMIN HCl 1,000 MG Tablet 1000 MG PO ×2 (09:42→18:43)
[2018-10-08 10:00] VITALS: PULSE 109; O2SAT 91
[2018-10-08 11:26] LABS: Bedside Glucose 269 mg/dL (70-110)
[2018-10-08 15:38] VITALS: BP 111/69; PULSE 107; RESP 16; TEMP 36.4; O2SAT 92
[2018-10-08 16:56] LABS: Bedside Glucose 171 mg/dL (70-110)
[2018-10-08] MEDS: Atorvastatin Calcium 80 MG Tablet PO (21:02)
[2018-10-08 21:06] LABS: Bedside Glucose 213 mg/dL (70-110)
[2018-10-09] MEDS: Menthol/Lanolin/Calamine/Znox 113 GM Tube 1 APPLIC TOPICAL ×2 (05:30→17:27)
[2018-10-09] MEDS: Glucerna Shake 120 ML LIQUID PO ×4 (05:33→19:50)
[2018-10-09] MEDS: Nystatin Powder 15gm Bottle 1 APPLIC TOPICAL ×3 (05:34→19:55)
[2018-10-09] MEDS: Escitalopram Oxalate 10 MG Tablet PO (05:34)
[2018-10-09] MEDS: Enoxaparin 40 MG/0.4 ML Syringe SC (05:34)
[2018-10-09] MEDS: Senna/Docusate Sodium 1 Tablet PO ×2 (05:34→17:27)
[2018-10-09] MEDS: Clopidogrel Bisulfate 75 MG Tablet PO (05:34)
[2018-10-09] MEDS: Lisinopril 40 MG Tablet PO (05:34)
[2018-10-09 06:05] LABS: Absolute Lymphocyte Count 1.74 X10^3/ul (0.83-4.51); Absolute Neutrophil Count 3.1 X10^3/uL (2.0-7.7); Basophil# 0.02 X10^3/uL; Basophil% 0.3 % (0-1); Eosinophil# 0.53 X10^3/uL; Eosinophils% 8.5 % (0-5); Hematocrit 41.5 % (40-54); Hemoglobin 13.9 g/dl (13.0-16.5); Lymphocyte # 1.74 X10^3/ul (4.0); Mean Corp Hgb Conc 33.5 g/gl (32-36); Mean Corpuscular Hgb 27.6 pg (27.0-32.0); Mean Corpuscular Volume 82.3 fL (80-94); Mean Platelet Vol. 10.5 fl (6.2-12.0); Monocyte# 0.84 X10^3/uL; Monocyte% 13.5 % (0-10); Neutrophil # 3.07 X10^3/uL (2.7-7.7); Neutrophil % 49.4 % (47-70); Platelet Count 236 K/mm3 (150-450); RBC Distribution Width CV 14.5 % (11.6-14.6); RBC Distribution Width SD 43.1 fl (35.1-43.9); Red Blood Count 5.04 M/mm3 (4.6-6.2); White Blood Count 6.2 K/mm3 (4.4-11.0)
[2018-10-09 06:06] LABS: POSITIVE COUNT NO; POSITIVE DIFFERENTIAL NO; POSITIVE MORPHOLOGY NO
[2018-10-09 06:12] LABS: Anion Gap 11 (5-15); BUN 25 mg/dL (7-18); BUN/Creat Ratio 33.2 RATIO (10-20); Calcium,Total 8.5 mg/dL (8.5-10.1); Chloride 103 mmol/L (98-107); Creatinine, Serum 0.75 mg/dL (0.70-1.30); EST Glomerular Filtration Rate 109 mL/min (>60); Est Glom Filt Rate - Afr Amer 132 mL/min (>60); Estimated Creatinine Clearance 71.99 ml/min; Glucose 161 mg/dL (74-106); Potassium 4.3 mmol/L (3.5-5.1); Sodium Level 140 mmol/L (136-145)
[2018-10-09 06:36] LABS: Bedside Glucose 205 mg/dL (70-110)
[2018-10-09] MEDS: Aspirin E.C. 81 MG Tablet PO (07:56)
[2018-10-09] MEDS: metFORMIN HCl 1,000 MG Tablet 1000 MG PO ×2 (07:56→17:27)
[2018-10-09] MEDS: Tuberculin,Purif.prot.deriv. 50 TU/ML Vial 5 ML ID (09:34)
[2018-10-09 11:31] LABS: Bedside Glucose 173 mg/dL (70-110)
--- NOTE | 2018-10-09 13:13 | CASEMGMT ---
Reviewed and approved PERSONAL FINANCIAL COUNSELOR student MDS documentation. Jamie CHIN, CHUN
[2018-10-09 15:19] VITALS: BP 109/72; PULSE 97; RESP 20; TEMP 36.3; O2SAT 94
[2018-10-09 16:02] LABS: Bedside Glucose 186 mg/dL (70-110)
[2018-10-09] MEDS: Atorvastatin Calcium 80 MG Tablet PO (19:49)
[2018-10-09 20:41] VITALS: PULSE 114; O2SAT 97
[2018-10-09 20:56] LABS: Bedside Glucose 230 mg/dL (70-110)
[2018-10-10] MEDS: Polyethylene Glycol 3350 17 GM PACKET PO (05:12)
[2018-10-10] MEDS: Senna/Docusate Sodium 1 Tablet PO ×2 (05:13→17:23)
[2018-10-10] MEDS: Menthol/Lanolin/Calamine/Znox 113 GM Tube 1 APPLIC TOPICAL ×2 (05:13→17:23)
[2018-10-10] MEDS: Escitalopram Oxalate 10 MG Tablet PO (05:13)
[2018-10-10] MEDS: Lisinopril 40 MG Tablet PO (05:13)
[2018-10-10] MEDS: Glucerna Shake 120 ML LIQUID PO ×4 (05:13→20:00)
[2018-10-10] MEDS: Clopidogrel Bisulfate 75 MG Tablet PO (05:13)
[2018-10-10] MEDS: Nystatin Powder 15gm Bottle 1 APPLIC TOPICAL ×3 (05:14→20:02)
[2018-10-10] MEDS: Enoxaparin 40 MG/0.4 ML Syringe SC (05:14)
[2018-10-10 06:56] LABS: Bedside Glucose 157 mg/dL (70-110)
[2018-10-10] MEDS: Aspirin E.C. 81 MG Tablet PO (07:48)
[2018-10-10] MEDS: metFORMIN HCl 1,000 MG Tablet 1000 MG PO ×2 (07:48→17:23)
[2018-10-10 10:00] VITALS: PULSE 108; RESP 18; O2SAT 96
[2018-10-10 11:46] LABS: Bedside Glucose 180 mg/dL (70-110)
[2018-10-10 15:38] VITALS: BP 115/73; PULSE 99; RESP 20; TEMP 36.3; O2SAT 94
[2018-10-10 16:52] LABS: Bedside Glucose 177 mg/dL (70-110)
[2018-10-10] MEDS: Atorvastatin Calcium 80 MG Tablet PO (19:57)
[2018-10-10 21:22] LABS: Bedside Glucose 218 mg/dL (70-110)
[2018-10-11] MEDS: Polyethylene Glycol 3350 17 GM PACKET PO (06:16)
[2018-10-11] MEDS: Lisinopril 40 MG Tablet PO (06:18)
[2018-10-11] MEDS: Glucerna Shake 120 ML LIQUID PO ×4 (06:18→20:06)
[2018-10-11] MEDS: Senna/Docusate Sodium 1 Tablet PO ×2 (06:18→16:41)
[2018-10-11] MEDS: Enoxaparin 40 MG/0.4 ML Syringe SC (06:18)
[2018-10-11] MEDS: Clopidogrel Bisulfate 75 MG Tablet PO (06:18)
[2018-10-11] MEDS: Escitalopram Oxalate 10 MG Tablet PO (06:18)
[2018-10-11] MEDS: Nystatin Powder 15gm Bottle 1 APPLIC TOPICAL ×3 (06:23→20:07)
[2018-10-11] MEDS: Menthol/Lanolin/Calamine/Znox 113 GM Tube 1 APPLIC TOPICAL ×2 (06:23→16:45)
[2018-10-11 06:41] LABS: Bedside Glucose 166 mg/dL (70-110)
[2018-10-11] MEDS: Aspirin E.C. 81 MG Tablet PO (08:42)
[2018-10-11] MEDS: metFORMIN HCl 1,000 MG Tablet 1000 MG PO ×2 (08:42→16:41)
[2018-10-11 11:56] LABS: Bedside Glucose 212 mg/dL (70-110)
[2018-10-11 15:39] VITALS: BP 105/62; PULSE 103; RESP 14; TEMP 36.4; O2SAT 92
[2018-10-11 17:06] LABS: Bedside Glucose 177 mg/dL (70-110)
--- NOTE | 2018-10-11 17:11 | CASEMGMT ---
Brief interview for mental status (BIMS) and resident mood interview (PHQ-9) completed on this day. BIMS score 04/19. PHQ-9 score 11/29
[2018-10-11] MEDS: Atorvastatin Calcium 80 MG Tablet PO (20:07)
[2018-10-11 20:13] VITALS: PULSE 103; RESP 14; O2SAT 92
[2018-10-11 21:32] LABS: Bedside Glucose 215 mg/dL (70-110)
[2018-10-12] MEDS: Clopidogrel Bisulfate 75 MG Tablet PO (05:20)
[2018-10-12] MEDS: Lisinopril 40 MG Tablet PO (05:20)
[2018-10-12] MEDS: Enoxaparin 40 MG/0.4 ML Syringe SC (05:20)
[2018-10-12] MEDS: Senna/Docusate Sodium 1 Tablet PO ×2 (05:20→16:51)
[2018-10-12] MEDS: Escitalopram Oxalate 10 MG Tablet PO (05:20)
[2018-10-12] MEDS: Glucerna Shake 120 ML LIQUID PO ×4 (05:20→21:46)
[2018-10-12] MEDS: Polyethylene Glycol 3350 17 GM PACKET PO (05:20)
[2018-10-12] MEDS: Nystatin Powder 15gm Bottle 1 APPLIC TOPICAL ×3 (05:21→21:45)
[2018-10-12] MEDS: Menthol/Lanolin/Calamine/Znox 113 GM Tube 1 APPLIC TOPICAL ×2 (05:21→16:57)
[2018-10-12 06:57] LABS: Bedside Glucose 167 mg/dL (70-110)
[2018-10-12] MEDS: metFORMIN HCl 1,000 MG Tablet 1000 MG PO ×2 (07:33→16:51)
[2018-10-12] MEDS: Aspirin E.C. 81 MG Tablet PO (07:33)
[2018-10-12 11:12] LABS: Bedside Glucose 192 mg/dL (70-110)
[2018-10-12 15:44] VITALS: BP 117/72; PULSE 101; RESP 16; TEMP 36.7; O2SAT 92
[2018-10-12 17:02] LABS: Bedside Glucose 165 mg/dL (70-110)
[2018-10-12 21:07] LABS: Bedside Glucose 233 mg/dL (70-110)
[2018-10-12] MEDS: Atorvastatin Calcium 80 MG Tablet PO (21:45)
[2018-10-12 22:19] VITALS: PULSE 102; RESP 18; O2SAT 92
[2018-10-13] MEDS: Glucerna Shake 120 ML LIQUID PO ×2 (06:44→17:47)
[2018-10-13] MEDS: Escitalopram Oxalate 10 MG Tablet PO (06:44)
[2018-10-13] MEDS: Enoxaparin 40 MG/0.4 ML Syringe SC (06:44)
[2018-10-13] MEDS: Menthol/Lanolin/Calamine/Znox 113 GM Tube 1 APPLIC TOPICAL ×2 (06:44→17:50)
[2018-10-13] MEDS: Nystatin Powder 15gm Bottle 1 APPLIC TOPICAL ×3 (06:45→21:35)
[2018-10-13] MEDS: Polyethylene Glycol 3350 17 GM PACKET PO (06:45)
[2018-10-13] MEDS: Clopidogrel Bisulfate 75 MG Tablet PO (06:45)
[2018-10-13] MEDS: Lisinopril 40 MG Tablet PO (06:45)
[2018-10-13] MEDS: Senna/Docusate Sodium 1 Tablet PO ×2 (06:45→17:47)
[2018-10-13 06:48] LABS: Bedside Glucose 162 mg/dL (70-110)
[2018-10-13] MEDS: metFORMIN HCl 1,000 MG Tablet 1000 MG PO ×2 (08:32→17:47)
[2018-10-13] MEDS: Aspirin E.C. 81 MG Tablet PO (08:32)
[2018-10-13 09:59] VITALS: PULSE 106; RESP 18; O2SAT 92
[2018-10-13 11:37] LABS: Bedside Glucose 191 mg/dL (70-110)
--- NOTE | 2018-10-13 12:28 | MDS.RN ---
Information for the mds was obtained from review of the clinical record, interview of resident, staff, and direct observation of resident's care.
--- NOTE | 2018-10-13 13:59 | MDS.RN ---
Pain interview for estrella 10/15/18 completed.
[2018-10-13 15:33] VITALS: BP 113/68; PULSE 100; RESP 24; TEMP 36.8; O2SAT 92
[2018-10-13 17:01] LABS: Bedside Glucose 164 mg/dL (70-110)
[2018-10-13 21:32] LABS: Bedside Glucose 221 mg/dL (70-110)
[2018-10-13] MEDS: Atorvastatin Calcium 80 MG Tablet PO (21:35)
[2018-10-14] MEDS: Menthol/Lanolin/Calamine/Znox 113 GM Tube 1 APPLIC TOPICAL ×2 (06:51→16:52)
[2018-10-14] MEDS: Enoxaparin 40 MG/0.4 ML Syringe SC (06:52)
[2018-10-14] MEDS: Lisinopril 40 MG Tablet PO (06:52)
[2018-10-14] MEDS: Nystatin Powder 15gm Bottle 1 APPLIC TOPICAL ×3 (06:52→20:40)
[2018-10-14] MEDS: Clopidogrel Bisulfate 75 MG Tablet PO (06:52)
[2018-10-14] MEDS: Escitalopram Oxalate 10 MG Tablet PO (06:52)
[2018-10-14] MEDS: Glucerna Shake 120 ML LIQUID PO ×4 (06:52→20:38)
[2018-10-14 07:17] LABS: Bedside Glucose 150 mg/dL (70-110)
[2018-10-14] MEDS: metFORMIN HCl 1,000 MG Tablet 1000 MG PO ×2 (08:17→16:50)
[2018-10-14] MEDS: Aspirin E.C. 81 MG Tablet PO (08:22)
[2018-10-14 10:00] VITALS: PULSE 103; RESP 18; O2SAT 92
[2018-10-14 12:02] LABS: Bedside Glucose 176 mg/dL (70-110)
[2018-10-14 15:15] VITALS: BP 103/62; PULSE 101; RESP 20; TEMP 37.1; O2SAT 94
[2018-10-14 15:57] LABS: Bedside Glucose 146 mg/dL (70-110)
[2018-10-14 17:02] LABS: Bedside Glucose 132 mg/dL (70-110)
[2018-10-14] MEDS: Atorvastatin Calcium 80 MG Tablet PO (20:40)
[2018-10-14 21:02] LABS: Bedside Glucose 247 mg/dL (70-110)
[2018-10-15] MEDS: Escitalopram Oxalate 10 MG Tablet PO (06:13)
[2018-10-15] MEDS: Lisinopril 40 MG Tablet PO (06:13)
[2018-10-15] MEDS: Senna/Docusate Sodium 1 Tablet PO ×2 (06:13→17:26)
[2018-10-15] MEDS: Clopidogrel Bisulfate 75 MG Tablet PO (06:13)
[2018-10-15] MEDS: Glucerna Shake 120 ML LIQUID PO ×4 (06:14→19:37)
[2018-10-15] MEDS: Menthol/Lanolin/Calamine/Znox 113 GM Tube 1 APPLIC TOPICAL ×2 (06:14→17:30)
[2018-10-15] MEDS: Enoxaparin 40 MG/0.4 ML Syringe SC (06:14)
[2018-10-15] MEDS: Nystatin Powder 15gm Bottle 1 APPLIC TOPICAL ×3 (06:17→19:37)
[2018-10-15 06:57] LABS: Bedside Glucose 161 mg/dL (70-110)
[2018-10-15] MEDS: Aspirin E.C. 81 MG Tablet PO (07:51)
[2018-10-15] MEDS: metFORMIN HCl 1,000 MG Tablet 1000 MG PO ×2 (07:51→17:26)
[2018-10-15 16:00] VITALS: BP 116/72; PULSE 105; RESP 20; TEMP 36.8; O2SAT 94
[2018-10-15 17:22] LABS: Bedside Glucose 172 mg/dL (70-110)
[2018-10-15] MEDS: Atorvastatin Calcium 80 MG Tablet PO (19:37)
[2018-10-15 19:42] VITALS: RESP 15
[2018-10-15 21:32] LABS: Bedside Glucose 200 mg/dL (70-110)
[2018-10-16] MEDS: Escitalopram Oxalate 10 MG Tablet PO (05:49)
[2018-10-16] MEDS: Clopidogrel Bisulfate 75 MG Tablet PO (05:49)
[2018-10-16] MEDS: Glucerna Shake 120 ML LIQUID PO ×4 (05:49→21:08)
[2018-10-16] MEDS: Lisinopril 40 MG Tablet PO (05:49)
[2018-10-16] MEDS: Menthol/Lanolin/Calamine/Znox 113 GM Tube 1 APPLIC TOPICAL ×2 (05:49→18:30)
[2018-10-16] MEDS: Enoxaparin 40 MG/0.4 ML Syringe SC (05:49)
[2018-10-16] MEDS: Senna/Docusate Sodium 1 Tablet PO ×2 (05:49→18:30)
[2018-10-16] MEDS: Nystatin Powder 15gm Bottle 1 APPLIC TOPICAL ×3 (05:50→21:08)
[2018-10-16 06:05] LABS: Absolute Lymphocyte Count 1.74 X10^3/ul (0.83-4.51); Basophil# 0.02 X10^3/uL; Basophil% 0.3 % (0-1); Eosinophil# 0.53 X10^3/uL; Eosinophils% 7.6 % (0-5); Hematocrit 41.7 % (40-54); Hemoglobin 13.4 g/dl (13.0-16.5); Lymphocyte # 1.74 X10^3/ul (4.0); Lymphocyte % 25.1 % (19-41); Mean Corp Hgb Conc 32.1 g/gl (32-36); Mean Corpuscular Hgb 26.7 pg (27.0-32.0); Mean Corpuscular Volume 83.2 fL (80-94); Mean Platelet Vol. 10.4 fl (6.2-12.0); Monocyte# 0.62 X10^3/uL; Monocyte% 8.9 % (0-10); Neutrophil % 57.8 % (47-70); Platelet Count 240 K/mm3 (150-450); RBC Distribution Width CV 14.4 % (11.6-14.6); RBC Distribution Width SD 43.5 fl (35.1-43.9); Red Blood Count 5.01 M/mm3 (4.6-6.2); White Blood Count 6.9 K/mm3 (4.4-11.0)
[2018-10-16 06:26] LABS: Anion Gap 9 (5-15); BUN 17 mg/dL (7-18); BUN/Creat Ratio 25.1 RATIO (10-20); Calcium,Total 8.6 mg/dL (8.5-10.1); Chloride 102 mmol/L (98-107); Creatinine, Serum 0.68 mg/dL (0.70-1.30); EST Glomerular Filtration Rate 123 mL/min (>60); Est Glom Filt Rate - Afr Amer 149 mL/min (>60); Estimated Creatinine Clearance 71.99 ml/min; Glucose 146 mg/dL (74-106); Potassium 4.3 mmol/L (3.5-5.1); Sodium Level 139 mmol/L (136-145)
[2018-10-16 06:27] LABS: POSITIVE COUNT NO; POSITIVE DIFFERENTIAL NO; POSITIVE MORPHOLOGY NO
[2018-10-16 07:01] LABS: Bedside Glucose 198 mg/dL (70-110)
[2018-10-16] MEDS: metFORMIN HCl 1,000 MG Tablet 1000 MG PO ×2 (07:41→18:30)
[2018-10-16] MEDS: Aspirin E.C. 81 MG Tablet PO (07:41)
[2018-10-16 11:06] LABS: Bedside Glucose 195 mg/dL (70-110)
[2018-10-16 15:00] VITALS: PULSE 97; RESP 18; O2SAT 96
[2018-10-16 15:39] VITALS: BP 107/66; PULSE 98; RESP 18; TEMP 36.6; O2SAT 95
[2018-10-16 16:51] LABS: Bedside Glucose 212 mg/dL (70-110)
[2018-10-16] MEDS: Atorvastatin Calcium 80 MG Tablet PO (21:10)
[2018-10-16 21:14] LABS: Bedside Glucose 211 mg/dL (70-110)
[2018-10-17] MEDS: Menthol/Lanolin/Calamine/Znox 113 GM Tube 1 APPLIC TOPICAL ×2 (05:58→18:21)
[2018-10-17] MEDS: Enoxaparin 40 MG/0.4 ML Syringe SC (05:59)
[2018-10-17] MEDS: Glucerna Shake 120 ML LIQUID PO ×4 (05:59→20:21)
[2018-10-17] MEDS: Escitalopram Oxalate 10 MG Tablet PO (05:59)
[2018-10-17] MEDS: Clopidogrel Bisulfate 75 MG Tablet PO (05:59)
[2018-10-17] MEDS: Lisinopril 40 MG Tablet PO (05:59)
[2018-10-17] MEDS: Nystatin Powder 15gm Bottle 1 APPLIC TOPICAL ×3 (05:59→20:22)
[2018-10-17] MEDS: Senna/Docusate Sodium 1 Tablet PO ×2 (05:59→18:14)
[2018-10-17 06:51] LABS: Bedside Glucose 202 mg/dL (70-110)
[2018-10-17] MEDS: Aspirin E.C. 81 MG Tablet PO (08:24)
[2018-10-17] MEDS: metFORMIN HCl 1,000 MG Tablet 1000 MG PO ×2 (08:24→18:14)
[2018-10-17 11:11] LABS: Bedside Glucose 220 mg/dL (70-110)
--- NOTE | 2018-10-17 13:59 | NURSING ---
Addendum entered by Laine Hameed 10/17/18 17:06: correction: d/c plavix, not xarelto. Original Note: Addendum entered by Laine Hameed 10/17/18 17:05: Dr. Foster updated, new order to d/c Xarelto. Original Note: PT HAD SMALL NURSE BLEED,REPORTED TO HILDA SHAVER
[2018-10-17 15:14] VITALS: BP 118/69; PULSE 101; RESP 20; TEMP 36.9; O2SAT 92
[2018-10-17 17:05] LABS: Bedside Glucose 149 mg/dL (70-110)
--- NOTE | 2018-10-17 18:11 | NURSING ---
Addendum entered by Alexandra Meron Speedy 10/18/18 17:31: new order to cancel appt with Elinor Original Note: Addendum entered by Alexandra Meron Speedy 10/18/18 12:31: APPT MADE BUT STATES PT GETS NOSE BLEEDS ATLEAST ONCE A YEAR. STATES SHE EXPLAINED TO TO QUIT PICKING AT HIS NOSE. SHE HAS CAUGHT HIM DOING THAT. WILL UPDATE DR WEBSTER Original Note: NO to set up appointment with Dr. Aldrich r/t nosebleeds.
[2018-10-17] MEDS: Atorvastatin Calcium 80 MG Tablet PO (20:22)
[2018-10-17 21:11] LABS: Bedside Glucose 215 mg/dL (70-110)
[2018-10-18] MEDS: Glucerna Shake 120 ML LIQUID PO ×4 (04:50→20:05)
[2018-10-18] MEDS: Enoxaparin 40 MG/0.4 ML Syringe SC (04:51)
[2018-10-18] MEDS: Nystatin Powder 15gm Bottle 1 APPLIC TOPICAL ×3 (04:51→20:11)
[2018-10-18] MEDS: Senna/Docusate Sodium 1 Tablet PO ×2 (04:51→18:27)
[2018-10-18] MEDS: Menthol/Lanolin/Calamine/Znox 113 GM Tube 1 APPLIC TOPICAL ×2 (04:51→18:34)
[2018-10-18] MEDS: Escitalopram Oxalate 10 MG Tablet PO (04:51)
[2018-10-18] MEDS: Lisinopril 40 MG Tablet PO (04:51)
[2018-10-18 06:56] LABS: Bedside Glucose 168 mg/dL (70-110)
[2018-10-18] MEDS: metFORMIN HCl 1,000 MG Tablet 1000 MG PO ×2 (09:15→18:27)
[2018-10-18] MEDS: Aspirin E.C. 81 MG Tablet PO (09:16)
[2018-10-18 10:00] VITALS: PULSE 96; O2SAT 91
--- NOTE | 2018-10-18 10:22 | CASEMGMT ---
Reviewed and approved social work student MDS documentation on 10/17/18. Jamie CHIN, CHUN
[2018-10-18 11:36] LABS: Bedside Glucose 193 mg/dL (70-110)
[2018-10-18 15:39] VITALS: BP 136/75; PULSE 107; RESP 24; TEMP 36.9; O2SAT 91
[2018-10-18 17:25] LABS: Bedside Glucose 154 mg/dL (70-110)
--- NOTE | 2018-10-18 18:48 | NURSING ---
During 1800 medication administration, meds were crushed and in apple sauce but he would cough slightly with each bite x3. Reported to next shift to monitor.
[2018-10-18] MEDS: Atorvastatin Calcium 80 MG Tablet PO (20:05)
[2018-10-18 20:56] LABS: Bedside Glucose 287 mg/dL (70-110)
[2018-10-19] MEDS: Acetaminophen 500 MG Tablet 1000 MG PO ×2 (05:46→12:45)
--- NOTE | 2018-10-19 05:49 | RAD_ITS ---
STUDY: X-RAY CHEST REASON FOR EXAM: Male, 68 years old. Chest pain TECHNIQUE: Frontal view COMPARISON: September 05, 2018 FINDINGS: The lungs are clear and expanded. There is no demonstrated pleural abnormality. Normal size heart. Normal mediastinum and teresita. Normal visualized pulmonary arteries. Normal visualized aortic arch and descending thoracic aorta. Normal visualized thoracic spine. Normal visualized ribs, clavicles, and shoulders. There is no demonstrated abnormality of the visualized soft tissue structures of the upper abdomen. RAD/Chest 1 View (Portable) IMPRESSION: Normal x-ray examination of the chest. Electronically Signed: Bishop Marroquin MD at 6:38 EST , Service support ,
--- NOTE | 2018-10-19 06:00 | NURSING ---
Addendum entered by Che Solorzano 10/19/18 07:37: Called pts , Fabiola and updated her on all. Will continue to monitor. Original Note: Pt very warm and sweating this AM. BP 154/87, HR 137-reg, temp 100.7, resp 22, and 90% on 2L. Increased NC to 3L-94%. Dr. Foster aware, and new orders for CBC, BMP, UA, resp panel, chest xray, IV bolus and IV zosyn Q6 x7 days. Updated pt on all.
[2018-10-19 06:46] LABS: Bedside Glucose 290 mg/dL (70-110)
[2018-10-19 06:56] VITALS: O2SAT 94
[2018-10-19] MEDS: 0.9% Normal Saline 1,000 ML 999 ML IV (07:00)
[2018-10-19] MEDS: Nystatin Powder 15gm Bottle 1 APPLIC TOPICAL ×3 (07:17→22:40)
[2018-10-19] MEDS: Menthol/Lanolin/Calamine/Znox 113 GM Tube 1 APPLIC TOPICAL ×2 (07:17→17:55)
[2018-10-19 07:33] VITALS: BP 126/75; PULSE 119
[2018-10-19 07:36] LABS: Absolute Neutrophil Count 14.7 X10^3/uL (2.0-7.7); Basophil# 0.01 X10^3/uL; Basophil% 0.1 % (0-1); Hematocrit 40.6 % (40-54); Hemoglobin 13.3 g/dl (13.0-16.5); Lymphocyte % 3.6 % (19-41); Mean Corp Hgb Conc 32.8 g/gl (32-36); Mean Corpuscular Hgb 26.9 pg (27.0-32.0); Mean Corpuscular Volume 82.2 fL (80-94); Mean Platelet Vol. 9.9 fl (6.2-12.0); Monocyte# 1.31 X10^3/uL; Monocyte% 7.9 % (0-10); Neutrophil % 88.2 % (47-70); Platelet Count 225 K/mm3 (150-450); RBC Distribution Width CV 14.6 % (11.6-14.6); RBC Distribution Width SD 43.7 fl (35.1-43.9); Red Blood Count 4.94 M/mm3 (4.6-6.2); White Blood Count 16.7 K/mm3 (4.4-11.0)
[2018-10-19 07:40] LABS: Differential Indicated SCAN CRITERIA MET; POSITIVE COUNT NO; POSITIVE DIFFERENTIAL YES; POSITIVE MORPHOLOGY NO
[2018-10-19 07:42] LABS: Anion Gap 8 (5-15); BUN 17 mg/dL (7-18); BUN/Creat Ratio 23.5 RATIO (10-20); Calcium,Total 8.2 mg/dL (8.5-10.1); Chloride 104 mmol/L (98-107); Creatinine, Serum 0.72 mg/dL (0.70-1.30); EST Glomerular Filtration Rate 115 mL/min (>60); Est Glom Filt Rate - Afr Amer 139 mL/min (>60); Estimated Creatinine Clearance 71.99 ml/min; Glucose 286 mg/dL (74-106); Potassium 4.3 mmol/L (3.5-5.1); Sodium Level 135 mmol/L (136-145)
--- NOTE | 2018-10-19 08:24 | PCM.TCUNOT ---
Subjective: Resident seen in room, lying in bed. He had low grade fever last night with tachycardia. Pulsox dropping in the 80's on room air. Yesterday he was coughing while eating, he may have aspirated, or developed hospital acquired pneumonia. Vitals/I&O's: Vital Signs Temp Pulse Resp BP Pulse Ox 98.4 F 119 H 24 H 126/75 H 94 10/18/18 15:39 10/19/18 07:33 10/18/18 15:39 10/19/18 07:33 10/19/18 06:56 Oxygen Flow Rate (L/min) 3 Oxygen Delivery Method Nasal Cannula Weight: 95.396 kg Body Mass Index (BMI) 28.7 Finger Stick Blood Glucose 268 Intake and Output for Last 24 Hours 10/17/18 10/18/18 10/19/18 23:59 23:59 23:59 Intake Total 1089 / 1089 840 / 840 Balance 1089 / 1089 840 / 840 Laboratory Results 10/18/18 11:22: POC Glucose 193 H 10/18/18 16:58: POC Glucose 154 H 10/18/18 20:44: POC Glucose 287 H 10/19/18 06:20: POC Glucose 290 H 10/19/18 07:18: Sodium 135 L, Potassium 4.3, Chloride 104, Carbon Dioxide 23.0, Anion Gap 8, BUN 17, Creatinine 0.72, Estim Creat Clear Calc 71.99, Est GFR (MDRD) Af Amer 139, Est GFR (MDRD) Non-Af 115, BUN/Creatinine Ratio 23.5 H, Glucose 286 H, Calcium 8.2 L 10/19/18 07:18: WBC 16.7 H, RBC 4.94, Hgb 13.3, Hct 40.6, MCV 82.2, MCH 26.9 L, MCHC 32.8, RDW 14.6, RDW Differential 43.7, Plt Count 225, MPV 9.9, Immature Gran % (Auto) 0.200, Neut % (Auto) 88.2 H, Lymph % (Auto) 3.6 L, [place] % (Auto) 7.9, Eos % (Auto) 0.0, Baso % (Auto) 0.1, Absolute Neuts (auto) 14.7 H, Absolute Lymphs (auto) 0.60 L, Total Counted Pending Past Medical History Past Medical History (Chronic Problems): Chronic Problems HTN (hypertension) (Chronic) HLD (hyperlipidemia) (Chronic) Obesity (BMI 30.0-34.9) (Chronic) Right hemiparesis (Chronic) Allergies hornet venom Allergy (Verified 09/08/18 18:16) Unknown Home Medications: Ambulatory Orders Medication Instructions Recorded Aspirin [Aspir 81] 81 mg PO DAILY 09/08/18 Atorvastatin Calcium 80 mg PO QHS 09/08/18 Clopidogrel Bisulfate [Plavix] 75 mg PO DAILY 09/08/18 Bisacodyl [Dulcolax] 10 mg RECTAL DAILY PRN 10/01/18 Enoxaparin [Lovenox] 40 mg SC DAILY@0600 10/01/18 Escitalopram Oxalate [Lexapro] 10 mg PO DAILY 10/01/18 Insulin Lispro [Humalog KwikPen] See Protocol SC ACHS 10/01/18 Lisinopril [Zestril] 40 mg PO DAILY 10/01/18 Menthol/Lanolin/Calamine/Znox 1 applic TOPICAL BID 10/01/18 [Calmoseptine Ointment] Metformin HCl [Glucophage] 1,000 mg PO BIDCM 10/01/18 Multivitamins,Ther W-Minerals 1 tablet PO DAILY@0800 10/01/18 [Multivitamin With Minerals] Nystatin 500,000 unit PO 4X/DAY 10/01/18 Nystatin Powder [Mycostatin Powder] 1 applic TOPICAL TID 10/01/18 Surgical History: no surgical history, - - Patient denies any surgical history. Psychiatric History: No pertinent psych hx Lives: Spouse/ Significant Other Smoking Status: Never smoker Tobacco Use: Non-smoker Alcohol: None Drugs: None - *Family History Maternal History Items: - - Patient's mother at age 76 with history of cancer. Paternal History Items: - - Patient's father at age 66 with myocardial infarction, current history of diabetes mellitus. Capacity - Capacity Assessment Tool Can the patient make a choice & communicate that choice?: Yes Can the patient understand benefits, risks and alternatives?: Yes Can the patient make a logical, rational choice?: Yes Is the choice the patient makes consistent w/ their values?: Yes Is there an impending, emergent risk to the patient?: Yes Does the patient have an Advance Directive?: Yes Is there a Surrogate Available?: Yes Review of Systems Constitutional: Reports: Fever. Denies: Chills, Weight Change HEENT: Denies: Head Aches, Sinus Congestion, Sinus Drainage Cardiovascular: Denies: Chest Pain, Palpitations Respiratory: Reports: Shortness of Breath, Shortness of breath at rest, Wheezing. Denies: Cough, Sputum production Gastrointestinal: Denies: Abdominal Pain, Nausea, Vomiting Genitourinary: Denies: Dysuria Musculoskeletal: Denies: Joint Pain, Joint Tenderness Skin: Denies: Rash, Wounds Neurological: Denies: Numbness, Tingling, Focal weakness Psychiatric: Denies: Anxiety, Depression, Homicidal Ideations, Suicidal Ideations Hematologic/ Lymphatic: Denies: Easy Bruising, Easy Bleeding Patient Problems: Active and Suspected Problems Dysphagia (Acute) - Physical Exam General: Alert, Oriented x3, Cooperative HEENT: Atraumatic, PERRLA, EOMI, Normocephalic Neck: Supple, No JVD, Negative Carotid Bruits Lungs: Short of Breath, Wheezes Cardiovascular: Regular rate, No murmurs Abdomen: Bowel Sounds Present, Soft, Non Tender Extremities: No edema, Capillary Refill Less than 3 Seconds Skin: No rashes, No breakdown Musculoskeletal: No Tenderness to Palpation of Joints or Extremities Neurological: Cranial nerves II-XII grossly intact Psych/Mental Status: Normal Affect, Appropriate Vital Signs Temp Pulse Resp BP Pulse Ox 98.4 F 119 H 24 H 126/75 H 94 10/18/18 15:39 10/19/18 07:33 10/18/18 15:39 10/19/18 07:33 10/19/18 06:56 Oxygen Flow Rate (L/min) 3 Oxygen Delivery Method Nasal Cannula Weight: 95.396 kg Body Mass Index (BMI) 28.7 Finger Stick Blood Glucose 268 Intake and Output for Last 24 Hours 10/17/18 10/18/18 10/19/18 23:59 23:59 23:59 Intake Total 1089 / 1089 840 / 840 Balance 1089 / 1089 840 / 840 Laboratory Tests Past 24 Hrs 10/19/18 10/19/18 07:18 07:18 WBC 16.7 H RBC 4.94 Hgb 13.3 Hct 40.6 MCV 82.2 MCH 26.9 L MCHC 32.8 RDW 14.6 RDW Differential 43.7 Plt Count 225 MPV 9.9 Immature Gran % (Auto) 0.200 Neut % (Auto) 88.2 H Lymph % (Auto) 3.6 L [place] % (Auto) 7.9 Eos % (Auto) 0.0 Baso % (Auto) 0.1 Absolute Neuts (auto) 14.7 H Absolute Lymphs (auto) 0.60 L Total Counted Pending Sodium 135 L Potassium 4.3 Chloride 104 Carbon Dioxide 23.0 Anion Gap 8 BUN 17 Creatinine 0.72 Estim Creat Clear Calc 71.99 Est GFR (MDRD) Af Amer 139 Est GFR (MDRD) Non-Af 115 BUN/Creatinine Ratio 23.5 H Glucose 286 H Calcium 8.2 L POC Glucose 10/19/18 10/18/18 10/18/18 06:20 20:44 16:58 POC Glucose 290 H 287 H 154 H 10/18/18 11:22 POC Glucose 193 H Assessment/Plan All Active Problems Left acute arterial ischemic stroke, MCA (middle cerebral artery) (Acute) Diabetes mellitus, type II (Acute) Dysphagia (Acute) 68 year old male with below past medical hospitalized for Left MCA stroke, complicated by hypersomnolence, admitted to TCU with debility, here for rebhabiliation, strengthening, prior to discharge home with spouse. Fever - CBC with diff, BMP, Respiratory panel, straight cath UA, C+S. Tachycardia - NS 1 liter IV bolus given, will continue at 60cc/hour. Hypoxia - 94% on 3 Liters NC. Leukocytosis - WBC 16.7. Aspiration pneumonia versus hospital acquired pneumonia - Zosyn 4.5GM IV Q6H x 7 days, add Albuterol, Duoneb, monitor.
--- NOTE | 2018-10-19 08:29 | PN_ITS ---
Subjective: Resident seen in room, lying in bed. He had low grade fever last night with tachycardia. Pulsox dropping in the 80's on room air. Yesterday he was coughing while eating, he may have aspirated, or developed hospital acquired pneumonia. Vitals/I&O's: Vital Signs Temp Pulse Resp BP Pulse Ox 98.4 F 119 H 24 H 126/75 H 94 10/18/18 15:39 10/19/18 07:33 10/18/18 15:39 10/19/18 07:33 10/19/18 06:56 Oxygen Flow Rate (L/min) 3 Oxygen Delivery Method Nasal Cannula Weight: 95.396 kg Body Mass Index (BMI) 28.7 Finger Stick Blood Glucose 268 Intake and Output for Last 24 Hours 10/17/18 10/18/18 10/19/18 23:59 23:59 23:59 Intake Total 1089 / 1089 840 / 840 Balance 1089 / 1089 840 / 840 Laboratory Results 10/18/18 11:22: POC Glucose 193 H 10/18/18 16:58: POC Glucose 154 H 10/18/18 20:44: POC Glucose 287 H 10/19/18 06:20: POC Glucose 290 H 10/19/18 07:18: Sodium 135 L, Potassium 4.3, Chloride 104, Carbon Dioxide 23.0, Anion Gap 8, BUN 17, Creatinine 0.72, Estim Creat Clear Calc 71.99, Est GFR (MDRD) Af Amer 139, Est GFR (MDRD) Non-Af 115, BUN/Creatinine Ratio 23.5 H, Glucose 286 H, Calcium 8.2 L 10/19/18 07:18: WBC 16.7 H, RBC 4.94, Hgb 13.3, Hct 40.6, MCV 82.2, MCH 26.9 L, MCHC 32.8, RDW 14.6, RDW Differential 43.7, Plt Count 225, MPV 9.9, Immature Gran % (Auto) 0.200, Neut % (Auto) 88.2 H, Lymph % (Auto) 3.6 L, [place] % (Auto) 7.9, Eos % (Auto) 0.0, Baso % (Auto) 0.1, Absolute Neuts (auto) 14.7 H, Absolute Lymphs (auto) 0.60 L, Total Counted Pending Past Medical History Past Medical History (Chronic Problems): Chronic Problems HTN (hypertension) (Chronic) HLD (hyperlipidemia) (Chronic) Obesity (BMI 30.0-34.9) (Chronic) Right hemiparesis (Chronic) Allergies hornet venom Allergy (Verified 09/08/18 18:16) Unknown Home Medications: Ambulatory Orders Medication Instructions Recorded Aspirin [Aspir 81] 81 mg PO DAILY 09/08/18 Atorvastatin Calcium 80 mg PO QHS 09/08/18 Clopidogrel Bisulfate [Plavix] 75 mg PO DAILY 09/08/18 Bisacodyl [Dulcolax] 10 mg RECTAL DAILY PRN 10/01/18 Enoxaparin [Lovenox] 40 mg SC DAILY@0600 10/01/18 Escitalopram Oxalate [Lexapro] 10 mg PO DAILY 10/01/18 Insulin Lispro [Humalog KwikPen] See Protocol SC ACHS 10/01/18 Lisinopril [Zestril] 40 mg PO DAILY 10/01/18 Menthol/Lanolin/Calamine/Znox 1 applic TOPICAL BID 10/01/18 [Calmoseptine Ointment] Metformin HCl [Glucophage] 1,000 mg PO BIDCM 10/01/18 Multivitamins,Ther W-Minerals 1 tablet PO DAILY@0800 10/01/18 [Multivitamin With Minerals] Nystatin 500,000 unit PO 4X/DAY 10/01/18 Nystatin Powder [Mycostatin Powder] 1 applic TOPICAL TID 10/01/18 Surgical History: no surgical history, - - Patient denies any surgical history. Psychiatric History: No pertinent psych hx Lives: Spouse/ Significant Other Smoking Status: Never smoker Tobacco Use: Non-smoker Alcohol: None Drugs: None - *Family History Maternal History Items: - - Patient's mother at age 76 with history of cancer. Paternal History Items: - - Patient's father at age 66 with myocardial infarction, current history of diabetes mellitus. Capacity - Capacity Assessment Tool Can the patient make a choice & communicate that choice?: Yes Can the patient understand benefits, risks and alternatives?: Yes Can the patient make a logical, rational choice?: Yes Is the choice the patient makes consistent w/ their values?: Yes Is there an impending, emergent risk to the patient?: Yes Does the patient have an Advance Directive?: Yes Is there a Surrogate Available?: Yes Review of Systems Constitutional: Reports: Fever. Denies: Chills, Weight Change HEENT: Denies: Head Aches, Sinus Congestion, Sinus Drainage Cardiovascular: Denies: Chest Pain, Palpitations Respiratory: Reports: Shortness of Breath, Shortness of breath at rest, Wheezing. Denies: Cough, Sputum production Gastrointestinal: Denies: Abdominal Pain, Nausea, Vomiting Genitourinary: Denies: Dysuria Musculoskeletal: Denies: Joint Pain, Joint Tenderness Skin: Denies: Rash, Wounds Neurological: Denies: Numbness, Tingling, Focal weakness Psychiatric: Denies: Anxiety, Depression, Homicidal Ideations, Suicidal Ideations Hematologic/ Lymphatic: Denies: Easy Bruising, Easy Bleeding Patient Problems: Active and Suspected Problems Dysphagia (Acute) - Physical Exam General: Alert, Oriented x3, Cooperative HEENT: Atraumatic, PERRLA, EOMI, Normocephalic Neck: Supple, No JVD, Negative Carotid Bruits Lungs: Short of Breath, Wheezes Cardiovascular: Regular rate, No murmurs Abdomen: Bowel Sounds Present, Soft, Non Tender Extremities: No edema, Capillary Refill Less than 3 Seconds Skin: No rashes, No breakdown Musculoskeletal: No Tenderness to Palpation of Joints or Extremities Neurological: Cranial nerves II-XII grossly intact Psych/Mental Status: Normal Affect, Appropriate Vital Signs Temp Pulse Resp BP Pulse Ox 98.4 F 119 H 24 H 126/75 H 94 10/18/18 15:39 10/19/18 07:33 10/18/18 15:39 10/19/18 07:33 10/19/18 06:56 Oxygen Flow Rate (L/min) 3 Oxygen Delivery Method Nasal Cannula Weight: 95.396 kg Body Mass Index (BMI) 28.7 Finger Stick Blood Glucose 268 Intake and Output for Last 24 Hours 10/17/18 10/18/18 10/19/18 23:59 23:59 23:59 Intake Total 1089 / 1089 840 / 840 Balance 1089 / 1089 840 / 840 Laboratory Tests Past 24 Hrs 10/19/18 10/19/18 07:18 07:18 WBC 16.7 H RBC 4.94 Hgb 13.3 Hct 40.6 MCV 82.2 MCH 26.9 L MCHC 32.8 RDW 14.6 RDW Differential 43.7 Plt Count 225 MPV 9.9 Immature Gran % (Auto) 0.200 Neut % (Auto) 88.2 H Lymph % (Auto) 3.6 L [place] % (Auto) 7.9 Eos % (Auto) 0.0 Baso % (Auto) 0.1 Absolute Neuts (auto) 14.7 H Absolute Lymphs (auto) 0.60 L Total Counted Pending Sodium 135 L Potassium 4.3 Chloride 104 Carbon Dioxide 23.0 Anion Gap 8 BUN 17 Creatinine 0.72 Estim Creat Clear Calc 71.99 Est GFR (MDRD) Af Amer 139 Est GFR (MDRD) Non-Af 115 BUN/Creatinine Ratio 23.5 H Glucose 286 H Calcium 8.2 L POC Glucose 10/19/18 10/18/18 10/18/18 06:20 20:44 16:58 POC Glucose 290 H 287 H 154 H 10/18/18 11:22 POC Glucose 193 H Assessment/Plan All Active Problems Left acute arterial ischemic stroke, MCA (middle cerebral artery) (Acute) Diabetes mellitus, type II (Acute) Dysphagia (Acute) 68 year old male with below past medical hospitalized for Left MCA stroke, complicated by hypersomnolence, admitted to TCU with debility, here for rebhabiliation, strengthening, prior to discharge home with spouse. * Fever - CBC with diff, BMP, Respiratory panel, straight cath UA, C+S. * Tachycardia - NS 1 liter IV bolus given, will continue at 60cc/hour. * Hypoxia - 94% on 3 Liters NC. * Leukocytosis - WBC 16.7. * Aspiration pneumonia versus hospital acquired pneumonia - Zosyn 4.5GM IV Q6H x 7 days, add Albuterol, Duoneb, monitor.
--- NOTE | 2018-10-19 09:09 | NURSING ---
Addendum entered by Alexandra Ruff 10/19/18 14:29: Dr garg updated, new order for blood culturesx2, remains at bedside. call light in reach. Original Note: Addendum entered by Alexandra Ruff 10/19/18 10:26: dr garg updated on labs/ua. No new orders, continue zosyn. feels it may be aspiration pneumonia. continue IVF's. will update . Original Note: Pt refusing all his meds at this time. This nurse made 3 attempts and Pt refused. Pt very diaphoretic, sleepy, and pale. Pt vitals at this time are T 98.9 P 125 R 24 bp 151/85 SPo2 94% with 3 L NC. Pt has Zosyn IV infusing in LFA. Alexandra STEVENS aware
[2018-10-19 09:53] LABS: Bacteria 0 SEEN /hpf (None Seen); Mucous, Urine 0 SEEN /hpf (<or=2+); Squamous Epithelial Cells - UA 0 SEEN /hpf (0-5); White Blood Cells 0 SEEN /hpf (0-5)
[2018-10-19 09:58] LABS: Color, Urine Yellow (Yellow); Glucose, Dipstick 250 mg/dl (Normal); Ketone-Dipstick 50 mg/dl (Negative); Leukocyte Esterase-Dipstick 25 /ul (Negative); Nitrite-Dipstick Negative (Negative); Occult Blood-Urine 250 /ul (Negative); Protein-Dipstick 30 mg/dl (Negative); Urine Bilirubin Dipstick Negative (Negative); Urine Clarity Clear (Clear); Urine Urobilinogen Normal (Normal)
[2018-10-19 10:00] VITALS: BP 152/78; PULSE 133; PULSE 95; RESP 26; TEMP 37.6; O2SAT 3; O2SAT 94
[2018-10-19 10:09] LABS: Red Blood Cells-Urine 25-50 SEEN /hpf (0-5)
--- NOTE | 2018-10-19 10:53 | NURSING ---
popcorn vendor notified for midline placement. awaiting call for arrival time.
[2018-10-19 11:26] LABS: Bedside Glucose 270 mg/dL (70-110)
[2018-10-19] MEDS: 0.9% Normal Saline 1,000 ML 60 ML IV (12:05)
[2018-10-19] MEDS: metFORMIN HCl 1,000 MG Tablet 1000 MG PO (12:46)
[2018-10-19 12:57] VITALS: PULSE 127; RESP 30; O2SAT 94
[2018-10-19] MEDS: Ipratropium/Albuterol Sulfate 3 ML AMPUL.NEB INHALATION ×2 (12:57→18:29)
--- NOTE | 2018-10-19 15:00 | MDS.RN ---
Information for the mds was obtained from review of the clinical record, interview of resident, staff, and direct observation of resident's care.
[2018-10-19 15:34] VITALS: BP 130/75; PULSE 115; RESP 28; TEMP 37.8; O2SAT 91
--- NOTE | 2018-10-19 16:14 | NURSING ---
stereoplotter operatorJenna here to insert midline.
[2018-10-19 16:56] LABS: Bedside Glucose 238 mg/dL (70-110)
[2018-10-19] MEDS: Glucerna Shake 120 ML LIQUID PO (17:54)
--- NOTE | 2018-10-19 18:15 | VDUE_ITS ---
Reason For Study: SOB Right Proximal Left Proximal Right jugular vein is spontaneous, widely Left jugular vein is spontaneous, widely patent, phasic, with no intraluminal patent, phasic, with no intraluminal echogenicity noted. echogenicity noted. Right subclavian vein is spontaneous, widely Left subclavian vein is spontaneous, widely patent, phasic, with no intraluminal patent, phasic, with no intraluminal echogenicity noted. echogenicity noted. Right Lower Arm Left Arm Right radial vein is compressible. Left axillary vein is spontaneous, patent, Right ulnar vein is compressible. phasic, competent, compressible and Right Arm demonstrates augmentation. Right axillary vein is spontaneous, patent, Left brachial vein is compressible. phasic, competent, compressible and Left cephalic vein is compressible. demonstrates augmentation. Left basilic vein is compressible. Right brachial vein is compressible. Left Lower Arm Right cephalic vein is compressible. Left radial vein is compressible. Right basilic vein is compressible. Left ulnar vein is compressible. Prelim to the pt's RN and Dr. Foster. Interpretation Summary Deep veins of the upper extremities are bilaterally patent and compressible segmentally. There is no evidence of deep vein thrombosis on either side. The superficial veins of the upper extremities, the basilic and cephalic veins, are patent and compressible bilaterally. There is no evidence of upper extremity superficial thrombophlebitis on either side involving the veins imaged. Ordering Physician: Miguel Foster Performed By: Humberto Grant RVT ?
[2018-10-19 18:29] VITALS: PULSE 129; RESP 28; O2SAT 94
[2018-10-19 20:41] LABS: Bedside Glucose 411 mg/dL (70-110)
--- NOTE | 2018-10-19 20:41 | NURSING ---
Dr Foster aware of pt's BS 411. N.O. give Humalog 10 units and recheck. Will continue to monitor and asses.
[2018-10-19] MEDS: Insulin Lispro 100 UNIT/ML INSULN.PEN 10 UNIT SC (22:34)
[2018-10-19] MEDS: Atorvastatin Calcium 80 MG Tablet PO (22:36)
[2018-10-20 00:41] LABS: Bedside Glucose 218 mg/dL (70-110)
[2018-10-20 04:40] LABS: Absolute Lymphocyte Count 1.27 X10^3/ul (0.83-4.51); Absolute Neutrophil Count 9.3 X10^3/uL (2.0-7.7); Basophil# 0.02 X10^3/uL; Basophil% 0.2 % (0-1); Eosinophil# 0.05 X10^3/uL; Eosinophils% 0.4 % (0-5); Hematocrit 37.2 % (40-54); Hemoglobin 12.1 g/dl (13.0-16.5); Lymphocyte # 1.27 X10^3/ul (4.0); Lymphocyte % 10.9 % (19-41); Mean Corp Hgb Conc 32.5 g/gl (32-36); Mean Corpuscular Hgb 26.9 pg (27.0-32.0); Mean Corpuscular Volume 82.7 fL (80-94); Monocyte# 0.93 X10^3/uL; Neutrophil # 9.33 X10^3/uL (2.7-7.7); Neutrophil % 80.2 % (47-70); Platelet Count 206 K/mm3 (150-450); RBC Distribution Width CV 14.9 % (11.6-14.6); RBC Distribution Width SD 44.8 fl (35.1-43.9); White Blood Count 11.6 K/mm3 (4.4-11.0)
[2018-10-20 04:47] LABS: POSITIVE COUNT NO; POSITIVE DIFFERENTIAL NO; POSITIVE MORPHOLOGY NO
[2018-10-20 04:57] LABS: Anion Gap 10 (5-15); BUN 15 mg/dL (7-18); BUN/Creat Ratio 20.5 RATIO (10-20); Calcium,Total 8.4 mg/dL (8.5-10.1); Chloride 106 mmol/L (98-107); Creatinine, Serum 0.73 mg/dL (0.70-1.30); EST Glomerular Filtration Rate 113 mL/min (>60); Est Glom Filt Rate - Afr Amer 137 mL/min (>60); Estimated Creatinine Clearance 71.99 ml/min; Glucose 223 mg/dL (74-106); Potassium 3.9 mmol/L (3.5-5.1); Sodium Level 141 mmol/L (136-145)
[2018-10-20] MEDS: 0.9% Saline Lock 10 ML Syringe IV ×2 (05:51→20:59)
[2018-10-20] MEDS: Escitalopram Oxalate 10 MG Tablet PO (05:54)
[2018-10-20] MEDS: Lisinopril 40 MG Tablet PO (05:54)
[2018-10-20] MEDS: Nystatin Powder 15gm Bottle 1 APPLIC TOPICAL ×3 (05:54→20:46)
[2018-10-20] MEDS: Menthol/Lanolin/Calamine/Znox 113 GM Tube 1 APPLIC TOPICAL ×2 (05:54→17:57)
[2018-10-20] MEDS: Senna/Docusate Sodium 1 Tablet PO (05:54)
[2018-10-20] MEDS: Polyethylene Glycol 3350 17 GM PACKET PO (05:54)
[2018-10-20] MEDS: Glucerna Shake 120 ML LIQUID PO ×4 (05:55→20:54)
[2018-10-20] MEDS: Enoxaparin 40 MG/0.4 ML Syringe SC (05:55)
--- NOTE | 2018-10-20 06:00 | RAD_ITS ---
STUDY: X-RAY CHEST REASON FOR EXAM: Male, 68 years old. Fever TECHNIQUE: Frontal and lateral views of the chest. COMPARISON: 10/19/2018. FINDINGS: The lungs are clear and expanded. There is no demonstrated pleural abnormality. Normal size heart. Normal mediastinum and teresita. Normal visualized pulmonary arteries. Normal visualized aortic arch and descending thoracic aorta. Normal visualized thoracic spine. Normal visualized ribs, clavicles, and shoulders. There is no demonstrated abnormality of the visualized soft tissue structures of the upper abdomen. RAD/Chest PA and Lateral IMPRESSION: Normal x-ray examination of the chest. Electronically Signed: Paul Zazueta MD at 16:28 EST , Service support ,
[2018-10-20 06:26] LABS: Bedside Glucose 220 mg/dL (70-110)
[2018-10-20] MEDS: metFORMIN HCl 1,000 MG Tablet 1000 MG PO ×2 (07:58→17:57)
[2018-10-20] MEDS: Aspirin E.C. 81 MG Tablet PO (07:58)
[2018-10-20 10:00] VITALS: PULSE 109; RESP 18; O2SAT 93
[2018-10-20 11:41] LABS: Bedside Glucose 224 mg/dL (70-110)
[2018-10-20 15:04] VITALS: BP 112/66; PULSE 115; RESP 20; TEMP 36.6; O2SAT 93
[2018-10-20 15:32] VITALS: O2SAT 93
[2018-10-20 17:02] LABS: Bedside Glucose 266 mg/dL (70-110)
[2018-10-20 18:45] VITALS: O2SAT 93
[2018-10-20] MEDS: Atorvastatin Calcium 80 MG Tablet PO (20:46)
[2018-10-20 21:31] LABS: Bedside Glucose 278 mg/dL (70-110)
[2018-10-21] MEDS: 0.9% Saline Lock 10 ML Syringe IV ×2 (05:13→21:39)
[2018-10-21] MEDS: Polyethylene Glycol 3350 17 GM PACKET PO (05:13)
[2018-10-21] MEDS: Glucerna Shake 120 ML LIQUID PO ×3 (05:13→21:41)
[2018-10-21] MEDS: Enoxaparin 40 MG/0.4 ML Syringe SC (05:14)
[2018-10-21] MEDS: 0.9% Normal Saline 1,000 ML 60 ML IV (05:15)
[2018-10-21] MEDS: Lisinopril 40 MG Tablet PO (05:19)
[2018-10-21] MEDS: Senna/Docusate Sodium 1 Tablet PO (05:19)
[2018-10-21] MEDS: Escitalopram Oxalate 10 MG Tablet PO (05:19)
[2018-10-21] MEDS: Nystatin Powder 15gm Bottle 1 APPLIC TOPICAL ×3 (05:21→21:44)
[2018-10-21] MEDS: Menthol/Lanolin/Calamine/Znox 113 GM Tube 1 APPLIC TOPICAL ×2 (05:22→16:39)
[2018-10-21 06:51] LABS: Bedside Glucose 229 mg/dL (70-110)
[2018-10-21] MEDS: metFORMIN HCl 1,000 MG Tablet 1000 MG PO ×2 (08:44→16:34)
[2018-10-21] MEDS: Aspirin E.C. 81 MG Tablet PO (08:44)
[2018-10-21 11:40] LABS: Bedside Glucose 226 mg/dL (70-110)
[2018-10-21 15:31] VITALS: BP 111/75; PULSE 93; RESP 16; TEMP 36.1; O2SAT 94
[2018-10-21 16:56] LABS: Bedside Glucose 218 mg/dL (70-110)
[2018-10-21 21:31] LABS: Bedside Glucose 213 mg/dL (70-110)
[2018-10-21] MEDS: Atorvastatin Calcium 80 MG Tablet PO (21:44)
[2018-10-21 23:00] VITALS: PULSE 90; RESP 18; O2SAT 94
[2018-10-22] MEDS: Enoxaparin 40 MG/0.4 ML Syringe SC (05:10)
[2018-10-22] MEDS: Polyethylene Glycol 3350 17 GM PACKET PO (05:12)
[2018-10-22] MEDS: Menthol/Lanolin/Calamine/Znox 113 GM Tube 1 APPLIC TOPICAL ×2 (05:13→17:10)
[2018-10-22] MEDS: Nystatin Powder 15gm Bottle 1 APPLIC TOPICAL ×3 (05:13→20:55)
[2018-10-22] MEDS: Lisinopril 40 MG Tablet PO (05:13)
[2018-10-22] MEDS: Escitalopram Oxalate 10 MG Tablet PO (05:13)
[2018-10-22] MEDS: Senna/Docusate Sodium 1 Tablet PO ×2 (05:13→17:10)
[2018-10-22] MEDS: Glucerna Shake 120 ML LIQUID PO ×4 (05:18→20:48)
[2018-10-22 06:51] LABS: Bedside Glucose 179 mg/dL (70-110)
[2018-10-22] MEDS: Aspirin E.C. 81 MG Tablet PO (07:57)
[2018-10-22] MEDS: metFORMIN HCl 1,000 MG Tablet 1000 MG PO ×2 (07:57→17:10)
--- NOTE | 2018-10-22 11:05 | NURSING ---
Dr. Foster changed pt's antibiotics to PO for remainder of course
[2018-10-22 11:16] LABS: Bedside Glucose 219 mg/dL (70-110)
[2018-10-22 15:10] VITALS: BP 124/86; PULSE 95; RESP 18; TEMP 36.4; O2SAT 92
[2018-10-22] MEDS: 0.9% Normal Saline 1,000 ML 60 ML IV (15:20)
[2018-10-22] MEDS: Amox/Clavulanate 875 MG Tablet PO (17:10)
[2018-10-22 17:16] LABS: Bedside Glucose 162 mg/dL (70-110)
[2018-10-22 20:36] LABS: Bedside Glucose 202 mg/dL (70-110)
[2018-10-22] MEDS: 0.9% Saline Lock 10 ML Syringe IV (20:46)
[2018-10-22] MEDS: Atorvastatin Calcium 80 MG Tablet PO (20:49)
[2018-10-22 20:56] VITALS: PULSE 92
[2018-10-22 20:58] VITALS: PULSE 92; RESP 18; O2SAT 94
[2018-10-23] MEDS: Glucerna Shake 120 ML LIQUID PO ×4 (06:35→20:51)
[2018-10-23] MEDS: Enoxaparin 40 MG/0.4 ML Syringe SC (06:35)
[2018-10-23] MEDS: Lisinopril 40 MG Tablet PO (06:37)
[2018-10-23] MEDS: Amox/Clavulanate 875 MG Tablet PO ×2 (06:37→18:10)
[2018-10-23] MEDS: Senna/Docusate Sodium 1 Tablet PO (06:38)
[2018-10-23] MEDS: Escitalopram Oxalate 10 MG Tablet PO (06:38)
[2018-10-23] MEDS: Menthol/Lanolin/Calamine/Znox 113 GM Tube 1 APPLIC TOPICAL ×2 (06:42→18:19)
[2018-10-23] MEDS: Nystatin Powder 15gm Bottle 1 APPLIC TOPICAL ×3 (06:44→22:43)
[2018-10-23] MEDS: Polyethylene Glycol 3350 17 GM PACKET PO (06:45)
[2018-10-23 06:56] LABS: Bedside Glucose 159 mg/dL (70-110)
--- NOTE | 2018-10-23 09:32 | NURSING ---
new order to DC IVF.
[2018-10-23] MEDS: Aspirin E.C. 81 MG Tablet PO (09:46)
[2018-10-23] MEDS: metFORMIN HCl 1,000 MG Tablet 1000 MG PO ×2 (09:46→18:10)
[2018-10-23 10:00] VITALS: PULSE 96; O2SAT 92
[2018-10-23 11:11] LABS: Bedside Glucose 220 mg/dL (70-110)
[2018-10-23 16:00] VITALS: BP 124/76; PULSE 98; RESP 18; TEMP 36.4; O2SAT 92
[2018-10-23 16:56] LABS: Bedside Glucose 170 mg/dL (70-110)
[2018-10-23] MEDS: 0.9% Saline Lock 10 ML Syringe IV (20:50)
[2018-10-23] MEDS: Atorvastatin Calcium 80 MG Tablet PO (20:51)
[2018-10-23 21:36] LABS: Bedside Glucose 175 mg/dL (70-110)
[2018-10-24] MEDS: Glucerna Shake 120 ML LIQUID PO ×3 (06:46→22:33)
[2018-10-24] MEDS: Menthol/Lanolin/Calamine/Znox 113 GM Tube 1 APPLIC TOPICAL ×2 (06:46→17:13)
[2018-10-24] MEDS: Polyethylene Glycol 3350 17 GM PACKET PO (06:46)
[2018-10-24] MEDS: Nystatin Powder 15gm Bottle 1 APPLIC TOPICAL ×3 (06:47→22:33)
[2018-10-24] MEDS: Senna/Docusate Sodium 1 Tablet PO (06:47)
[2018-10-24] MEDS: Escitalopram Oxalate 10 MG Tablet PO (06:47)
[2018-10-24] MEDS: Enoxaparin 40 MG/0.4 ML Syringe SC (06:47)
[2018-10-24] MEDS: Amox/Clavulanate 875 MG Tablet PO ×2 (06:47→17:13)
[2018-10-24] MEDS: Lisinopril 40 MG Tablet PO (06:47)
[2018-10-24 06:51] LABS: Bedside Glucose 147 mg/dL (70-110)
[2018-10-24 07:01] VITALS: O2SAT 92
[2018-10-24] MEDS: metFORMIN HCl 1,000 MG Tablet 1000 MG PO ×2 (07:49→17:13)
[2018-10-24] MEDS: Aspirin E.C. 81 MG Tablet PO (07:49)
--- NOTE | 2018-10-24 11:21 | NURSING ---
PICC FLUSHED WITH GOOD BLOOD RETURN.
[2018-10-24 11:41] LABS: Bedside Glucose 182 mg/dL (70-110)
[2018-10-24 14:50] VITALS: BP 121/86; PULSE 97; RESP 24; TEMP 36.3; O2SAT 98
[2018-10-24 17:16] LABS: Bedside Glucose 162 mg/dL (70-110)
[2018-10-24 21:26] LABS: Bedside Glucose 174 mg/dL (70-110)
[2018-10-24] MEDS: Atorvastatin Calcium 80 MG Tablet PO (22:33)
[2018-10-25 02:44] VITALS: O2SAT 95
[2018-10-25] MEDS: Menthol/Lanolin/Calamine/Znox 113 GM Tube 1 APPLIC TOPICAL ×2 (05:57→16:44)
[2018-10-25] MEDS: Lisinopril 40 MG Tablet PO (05:57)
[2018-10-25] MEDS: Senna/Docusate Sodium 1 Tablet PO ×2 (05:57→16:45)
[2018-10-25] MEDS: Amox/Clavulanate 875 MG Tablet PO ×2 (05:57→16:45)
[2018-10-25] MEDS: Polyethylene Glycol 3350 17 GM PACKET PO (05:57)
[2018-10-25] MEDS: Glucerna Shake 120 ML LIQUID PO ×4 (05:57→20:26)
[2018-10-25] MEDS: Enoxaparin 40 MG/0.4 ML Syringe SC (05:57)
[2018-10-25] MEDS: Escitalopram Oxalate 10 MG Tablet PO (05:57)
[2018-10-25] MEDS: 0.9% Saline Lock 10 ML Syringe IV (05:58)
[2018-10-25] MEDS: Nystatin Powder 15gm Bottle 1 APPLIC TOPICAL ×3 (05:58→20:25)
[2018-10-25 06:51] LABS: Bedside Glucose 175 mg/dL (70-110)
[2018-10-25] MEDS: metFORMIN HCl 1,000 MG Tablet 1000 MG PO ×2 (08:06→16:45)
[2018-10-25] MEDS: Aspirin E.C. 81 MG Tablet PO (08:06)
[2018-10-25 11:56] LABS: Bedside Glucose 179 mg/dL (70-110)
--- NOTE | 2018-10-25 12:42 | NURSING ---
diet upgraded to mechanical soft per .
[2018-10-25 15:23] VITALS: BP 133/80; PULSE 91; RESP 16; TEMP 36.7; O2SAT 91
[2018-10-25 17:21] LABS: Bedside Glucose 182 mg/dL (70-110)
[2018-10-25] MEDS: Atorvastatin Calcium 80 MG Tablet PO (20:23)
[2018-10-25] MEDS: 0.9% NaCl Midline IV Flush IV (20:31)
[2018-10-25 21:01] LABS: Bedside Glucose 222 mg/dL (70-110)
[2018-10-26] MEDS: Polyethylene Glycol 3350 17 GM PACKET PO (05:03)
[2018-10-26] MEDS: Lisinopril 40 MG Tablet PO (05:03)
[2018-10-26] MEDS: Amox/Clavulanate 875 MG Tablet PO ×2 (05:03→17:38)
[2018-10-26] MEDS: Senna/Docusate Sodium 1 Tablet PO ×2 (05:03→17:38)
[2018-10-26] MEDS: Enoxaparin 40 MG/0.4 ML Syringe SC (05:03)
[2018-10-26] MEDS: Escitalopram Oxalate 10 MG Tablet PO (05:03)
[2018-10-26] MEDS: Nystatin Powder 15gm Bottle 1 APPLIC TOPICAL ×3 (05:10→19:47)
[2018-10-26] MEDS: Menthol/Lanolin/Calamine/Znox 113 GM Tube 1 APPLIC TOPICAL ×2 (05:10→17:38)
[2018-10-26] MEDS: Glucerna Shake 120 ML LIQUID PO ×4 (05:10→19:47)
[2018-10-26 06:42] VITALS: O2SAT 93
[2018-10-26 06:56] LABS: Bedside Glucose 176 mg/dL (70-110)
[2018-10-26] MEDS: Aspirin E.C. 81 MG Tablet PO (07:52)
[2018-10-26] MEDS: metFORMIN HCl 1,000 MG Tablet 1000 MG PO ×2 (07:52→17:38)
--- NOTE | 2018-10-26 10:04 | CASEMGMT ---
Addendum entered by Amelie Torres 10/26/18 14:03: Reviewed and approved social work student MDS documentation. 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 BIMS score . PHQ-9 score 10/01. Junaid Kyle social work student
--- NOTE | 2018-10-26 14:51 | MDS.RN ---
Pain interview for estrella 10/29/18 completed.
--- NOTE | 2018-10-26 14:55 | MDS.RN ---
Pain interview for estrella 10/29/18 completed.
[2018-10-26 16:00] VITALS: BP 122/72; PULSE 90; RESP 18; TEMP 35.8; O2SAT 94
[2018-10-26] MEDS: Atorvastatin Calcium 80 MG Tablet PO (19:47)
[2018-10-26] MEDS: 0.9% NaCl Midline IV Flush IV (19:51)
[2018-10-27] MEDS: Senna/Docusate Sodium 1 Tablet PO ×2 (05:07→17:13)
[2018-10-27] MEDS: Escitalopram Oxalate 10 MG Tablet PO (05:07)
[2018-10-27] MEDS: Enoxaparin 40 MG/0.4 ML Syringe SC (05:07)
[2018-10-27] MEDS: Lisinopril 40 MG Tablet PO (05:07)
[2018-10-27] MEDS: Glucerna Shake 120 ML LIQUID PO ×3 (05:07→22:30)
[2018-10-27] MEDS: Polyethylene Glycol 3350 17 GM PACKET PO (05:07)
[2018-10-27] MEDS: Amox/Clavulanate 875 MG Tablet PO ×2 (05:07→17:13)
[2018-10-27] MEDS: Menthol/Lanolin/Calamine/Znox 113 GM Tube 1 APPLIC TOPICAL ×2 (05:13→17:14)
[2018-10-27] MEDS: Nystatin Powder 15gm Bottle 1 APPLIC TOPICAL ×3 (05:14→22:30)
[2018-10-27 06:39] VITALS: O2SAT 95
[2018-10-27 06:46] LABS: Bedside Glucose 168 mg/dL (70-110)
[2018-10-27] MEDS: Aspirin E.C. 81 MG Tablet PO (07:47)
[2018-10-27] MEDS: metFORMIN HCl 1,000 MG Tablet 1000 MG PO ×2 (07:47→17:13)
[2018-10-27] MEDS: 0.9% Saline Lock 10 ML Syringe IV ×2 (11:28→22:33)
[2018-10-27 15:17] VITALS: BP 130/77; PULSE 72; RESP 18; TEMP 36.2; O2SAT 92
[2018-10-27] MEDS: Atorvastatin Calcium 80 MG Tablet PO (22:31)
[2018-10-27 23:08] VITALS: PULSE 88; RESP 18; O2SAT 96
[2018-10-28] MEDS: Polyethylene Glycol 3350 17 GM PACKET PO (04:59)
[2018-10-28] MEDS: Nystatin Powder 15gm Bottle 1 APPLIC TOPICAL ×3 (05:00→20:35)
[2018-10-28] MEDS: Amox/Clavulanate 875 MG Tablet PO ×2 (05:00→17:57)
[2018-10-28] MEDS: Escitalopram Oxalate 10 MG Tablet PO (05:00)
[2018-10-28] MEDS: Lisinopril 40 MG Tablet PO (05:00)
[2018-10-28] MEDS: Senna/Docusate Sodium 1 Tablet PO ×2 (05:00→17:57)
[2018-10-28] MEDS: Glucerna Shake 120 ML LIQUID PO ×3 (05:00→20:33)
[2018-10-28] MEDS: Menthol/Lanolin/Calamine/Znox 113 GM Tube 1 APPLIC TOPICAL ×2 (05:01→17:57)
[2018-10-28] MEDS: Enoxaparin 40 MG/0.4 ML Syringe SC (05:15)
[2018-10-28 06:46] VITALS: O2SAT 94
[2018-10-28 07:06] LABS: Bedside Glucose 160 mg/dL (70-110)
[2018-10-28] MEDS: Aspirin E.C. 81 MG Tablet PO (08:10)
[2018-10-28] MEDS: metFORMIN HCl 1,000 MG Tablet 1000 MG PO ×2 (08:10→17:57)
[2018-10-28 15:21] VITALS: BP 128/82; PULSE 91; RESP 20; TEMP 36.7; O2SAT 93
[2018-10-28 20:22] VITALS: PULSE 95; RESP 18; O2SAT 93
[2018-10-28] MEDS: Atorvastatin Calcium 80 MG Tablet PO (20:34)
[2018-10-28] MEDS: 0.9% Saline Lock 10 ML Syringe IV (20:40)
[2018-10-29 06:30] LABS: Bedside Glucose 127 mg/dL (70-110)
[2018-10-29 06:48] VITALS: O2SAT 94
[2018-10-29] MEDS: Polyethylene Glycol 3350 17 GM PACKET PO (06:54)
[2018-10-29] MEDS: Senna/Docusate Sodium 1 Tablet PO ×2 (06:54→17:32)
[2018-10-29] MEDS: Lisinopril 40 MG Tablet PO (06:54)
[2018-10-29] MEDS: Enoxaparin 40 MG/0.4 ML Syringe SC (06:54)
[2018-10-29] MEDS: Amox/Clavulanate 875 MG Tablet PO ×2 (06:54→17:32)
[2018-10-29] MEDS: Escitalopram Oxalate 10 MG Tablet PO (06:54)
[2018-10-29] MEDS: Menthol/Lanolin/Calamine/Znox 113 GM Tube 1 APPLIC TOPICAL ×2 (06:56→17:38)
[2018-10-29] MEDS: Nystatin Powder 15gm Bottle 1 APPLIC TOPICAL ×3 (06:57→20:40)
[2018-10-29] MEDS: Glucerna Shake 120 ML LIQUID PO ×4 (07:01→20:40)
[2018-10-29] MEDS: Aspirin E.C. 81 MG Tablet PO (08:06)
[2018-10-29] MEDS: metFORMIN HCl 1,000 MG Tablet 1000 MG PO ×2 (08:06→17:32)
[2018-10-29 10:00] VITALS: PULSE 96; O2SAT 94
[2018-10-29 15:37] VITALS: BP 128/81; PULSE 96; RESP 20; TEMP 36.8; O2SAT 94
[2018-10-29] MEDS: Atorvastatin Calcium 80 MG Tablet PO (20:40)
[2018-10-29] MEDS: 0.9% Saline Lock 10 ML Syringe IV (20:55)
[2018-10-30] MEDS: Enoxaparin 40 MG/0.4 ML Syringe SC (05:22)
[2018-10-30] MEDS: Glucerna Shake 120 ML LIQUID PO ×3 (05:22→20:00)
[2018-10-30] MEDS: Lisinopril 40 MG Tablet PO (05:22)
[2018-10-30] MEDS: Senna/Docusate Sodium 1 Tablet PO ×2 (05:22→17:03)
[2018-10-30] MEDS: Escitalopram Oxalate 10 MG Tablet PO (05:22)
[2018-10-30] MEDS: Polyethylene Glycol 3350 17 GM PACKET PO (05:22)
[2018-10-30] MEDS: Nystatin Powder 15gm Bottle 1 APPLIC TOPICAL ×3 (05:23→20:03)
[2018-10-30] MEDS: Menthol/Lanolin/Calamine/Znox 113 GM Tube 1 APPLIC TOPICAL ×2 (05:23→17:07)
[2018-10-30 06:51] LABS: Bedside Glucose 194 mg/dL (70-110)
[2018-10-30 07:15] VITALS: O2SAT 93
[2018-10-30] MEDS: metFORMIN HCl 1,000 MG Tablet 1000 MG PO ×2 (09:19→17:03)
[2018-10-30] MEDS: Aspirin E.C. 81 MG Tablet PO (09:19)
[2018-10-30 16:00] VITALS: BP 116/74; PULSE 100; RESP 18; TEMP 36.8; O2SAT 93
[2018-10-30 17:05] LABS: Bedside Glucose 160 mg/dL (70-110)
[2018-10-30] MEDS: Atorvastatin Calcium 80 MG Tablet PO (20:00)
[2018-10-31] MEDS: Lisinopril 40 MG Tablet PO (06:39)
[2018-10-31] MEDS: Escitalopram Oxalate 10 MG Tablet PO (06:39)
[2018-10-31] MEDS: Senna/Docusate Sodium 1 Tablet PO ×2 (06:39→17:54)
[2018-10-31] MEDS: Polyethylene Glycol 3350 17 GM PACKET PO (06:40)
[2018-10-31] MEDS: Glucerna Shake 120 ML LIQUID PO ×4 (06:40→20:21)
[2018-10-31] MEDS: Nystatin Powder 15gm Bottle 1 APPLIC TOPICAL ×3 (06:40→20:23)
[2018-10-31] MEDS: Menthol/Lanolin/Calamine/Znox 113 GM Tube 1 APPLIC TOPICAL ×2 (06:40→17:58)
[2018-10-31] MEDS: Enoxaparin 40 MG/0.4 ML Syringe SC (06:41)
[2018-10-31 06:46] LABS: Bedside Glucose 169 mg/dL (70-110)
[2018-10-31 07:24] VITALS: PULSE 84; RESP 18; O2SAT 96
[2018-10-31] MEDS: Aspirin E.C. 81 MG Tablet PO (07:48)
[2018-10-31] MEDS: metFORMIN HCl 1,000 MG Tablet 1000 MG PO ×2 (07:48→17:54)
[2018-10-31 15:29] VITALS: BP 127/77; PULSE 98; RESP 20; TEMP 36.6; O2SAT 93
[2018-10-31] MEDS: Atorvastatin Calcium 80 MG Tablet PO (20:21)
[2018-11-01] MEDS: Glucerna Shake 120 ML LIQUID PO ×2 (05:04→17:36)
[2018-11-01] MEDS: Polyethylene Glycol 3350 17 GM PACKET PO (05:04)
[2018-11-01] MEDS: Lisinopril 40 MG Tablet PO (05:06)
[2018-11-01] MEDS: Enoxaparin 40 MG/0.4 ML Syringe SC (05:06)
[2018-11-01] MEDS: Escitalopram Oxalate 10 MG Tablet PO (05:06)
[2018-11-01] MEDS: Senna/Docusate Sodium 1 Tablet PO ×2 (05:06→17:37)
[2018-11-01] MEDS: Nystatin Powder 15gm Bottle 1 APPLIC TOPICAL ×3 (05:09→20:47)
[2018-11-01] MEDS: Menthol/Lanolin/Calamine/Znox 113 GM Tube 1 APPLIC TOPICAL ×2 (05:09→17:37)
[2018-11-01 06:51] LABS: Bedside Glucose 175 mg/dL (70-110)
[2018-11-01] MEDS: Aspirin E.C. 81 MG Tablet PO (07:47)
[2018-11-01] MEDS: metFORMIN HCl 1,000 MG Tablet 1000 MG PO ×2 (07:47→17:37)
--- NOTE | 2018-11-01 09:30 | NURSING ---
Dr. Foster confirmed labs BMP and CBC to be drawn 11/02/2018.
[2018-11-01 15:50] VITALS: BP 106/65; PULSE 80; RESP 18; TEMP 36.9; O2SAT 95
[2018-11-01] MEDS: Atorvastatin Calcium 80 MG Tablet PO (20:47)
[2018-11-02] MEDS: Menthol/Lanolin/Calamine/Znox 113 GM Tube 1 APPLIC TOPICAL ×2 (05:22→17:46)
[2018-11-02] MEDS: Escitalopram Oxalate 10 MG Tablet PO (05:22)
[2018-11-02] MEDS: Glucerna Shake 120 ML LIQUID PO ×3 (05:22→19:40)
[2018-11-02] MEDS: Enoxaparin 40 MG/0.4 ML Syringe SC (05:22)
[2018-11-02] MEDS: Senna/Docusate Sodium 1 Tablet PO ×2 (05:23→17:46)
[2018-11-02] MEDS: Lisinopril 40 MG Tablet PO (05:23)
[2018-11-02] MEDS: Nystatin Powder 15gm Bottle 1 APPLIC TOPICAL ×3 (05:23→19:41)
[2018-11-02 06:41] LABS: Bedside Glucose 182 mg/dL (70-110)
[2018-11-02 07:28] LABS: Absolute Lymphocyte Count 1.93 X10^3/ul (0.83-4.51); Absolute Neutrophil Count 3.6 X10^3/uL (2.0-7.7); Basophil# 0.03 X10^3/uL; Basophil% 0.5 % (0-1); Eosinophil# 0.43 X10^3/uL; Eosinophils% 6.5 % (0-5); Hemoglobin 13.8 g/dl (13.0-16.5); Lymphocyte # 1.93 X10^3/ul (4.0); Mean Corp Hgb Conc 32.1 g/gl (32-36); Mean Corpuscular Hgb 26.8 pg (27.0-32.0); Mean Corpuscular Volume 83.5 fL (80-94); Mean Platelet Vol. 9.6 fl (6.2-12.0); Monocyte# 0.67 X10^3/uL; Monocyte% 10.1 % (0-10); Neutrophil # 3.59 X10^3/uL (2.7-7.7); Neutrophil % 53.7 % (47-70); Platelet Count 257 K/mm3 (150-450); RBC Distribution Width SD 45.8 fl (35.1-43.9); Red Blood Count 5.15 M/mm3 (4.6-6.2); White Blood Count 6.7 K/mm3 (4.4-11.0)
[2018-11-02 07:33] LABS: Anion Gap 4 (5-15); BUN 17 mg/dL (7-18); BUN/Creat Ratio 27.2 RATIO (10-20); Calcium,Total 8.6 mg/dL (8.5-10.1); Chloride 104 mmol/L (98-107); Creatinine, Serum 0.63 mg/dL (0.70-1.30); EST Glomerular Filtration Rate 135 mL/min (>60); Est Glom Filt Rate - Afr Amer 164 mL/min (>60); Estimated Creatinine Clearance 71.99 ml/min; Glucose 173 mg/dL (74-106); Potassium 4.1 mmol/L (3.5-5.1); Sodium Level 136 mmol/L (136-145)
[2018-11-02 07:38] LABS: POSITIVE COUNT NO; POSITIVE DIFFERENTIAL NO; POSITIVE MORPHOLOGY NO
[2018-11-02] MEDS: metFORMIN HCl 1,000 MG Tablet 1000 MG PO ×2 (07:54→17:46)
[2018-11-02] MEDS: Aspirin E.C. 81 MG Tablet PO (07:54)
[2018-11-02 15:30] VITALS: BP 109/69; PULSE 92; RESP 16; TEMP 36.2; O2SAT 93
[2018-11-02] MEDS: Atorvastatin Calcium 80 MG Tablet PO (19:40)
[2018-11-03] MEDS: Polyethylene Glycol 3350 17 GM PACKET PO (04:58)
[2018-11-03] MEDS: Senna/Docusate Sodium 1 Tablet PO ×2 (05:00→17:32)
[2018-11-03] MEDS: Glucerna Shake 120 ML LIQUID PO ×4 (05:00→20:12)
[2018-11-03] MEDS: Lisinopril 40 MG Tablet PO (05:01)
[2018-11-03] MEDS: Enoxaparin 40 MG/0.4 ML Syringe SC (05:01)
[2018-11-03] MEDS: Escitalopram Oxalate 10 MG Tablet PO (05:01)
[2018-11-03] MEDS: Nystatin Powder 15gm Bottle 1 APPLIC TOPICAL ×3 (05:08→20:16)
[2018-11-03] MEDS: Menthol/Lanolin/Calamine/Znox 113 GM Tube 1 APPLIC TOPICAL ×2 (05:09→17:38)
[2018-11-03 06:45] LABS: Bedside Glucose 170 mg/dL (70-110)
[2018-11-03] MEDS: metFORMIN HCl 1,000 MG Tablet 1000 MG PO ×2 (07:45→17:32)
[2018-11-03] MEDS: Aspirin E.C. 81 MG Tablet PO (07:46)
[2018-11-03 14:38] VITALS: PULSE 93; RESP 18; O2SAT 99
[2018-11-03 15:19] VITALS: BP 111/70; PULSE 101; RESP 20; TEMP 37.2; O2SAT 92
[2018-11-03] MEDS: Atorvastatin Calcium 80 MG Tablet PO (20:13)
[2018-11-04] MEDS: Enoxaparin 40 MG/0.4 ML Syringe SC (05:34)
[2018-11-04] MEDS: Menthol/Lanolin/Calamine/Znox 113 GM Tube 1 APPLIC TOPICAL ×3 (05:35→19:47)
[2018-11-04] MEDS: Polyethylene Glycol 3350 17 GM PACKET PO (05:36)
[2018-11-04] MEDS: Glucerna Shake 120 ML LIQUID PO ×3 (05:36→19:49)
[2018-11-04] MEDS: Escitalopram Oxalate 10 MG Tablet PO (05:39)
[2018-11-04] MEDS: Lisinopril 40 MG Tablet PO (05:39)
[2018-11-04] MEDS: Senna/Docusate Sodium 1 Tablet PO ×2 (05:39→17:25)
[2018-11-04] MEDS: Nystatin Powder 15gm Bottle 1 APPLIC TOPICAL ×3 (05:41→19:47)
[2018-11-04 06:51] LABS: Bedside Glucose 174 mg/dL (70-110)
[2018-11-04] MEDS: metFORMIN HCl 1,000 MG Tablet 1000 MG PO ×2 (08:14→17:25)
[2018-11-04] MEDS: Aspirin E.C. 81 MG Tablet PO (08:14)
[2018-11-04 15:26] VITALS: BP 116/69; PULSE 104; RESP 18; TEMP 36.8; O2SAT 93
[2018-11-04] MEDS: Atorvastatin Calcium 80 MG Tablet PO (19:53)
[2018-11-05] MEDS: Polyethylene Glycol 3350 17 GM PACKET PO (05:07)
[2018-11-05] MEDS: Enoxaparin 40 MG/0.4 ML Syringe SC (05:08)
[2018-11-05] MEDS: Lisinopril 40 MG Tablet PO (05:08)
[2018-11-05] MEDS: Glucerna Shake 120 ML LIQUID PO ×3 (05:08→20:12)
[2018-11-05] MEDS: Senna/Docusate Sodium 1 Tablet PO ×2 (05:08→17:34)
[2018-11-05] MEDS: Escitalopram Oxalate 10 MG Tablet PO (05:08)
[2018-11-05] MEDS: Nystatin Powder 15gm Bottle 1 APPLIC TOPICAL ×3 (05:09→20:15)
[2018-11-05 06:45] LABS: Bedside Glucose 151 mg/dL (70-110)
[2018-11-05] MEDS: metFORMIN HCl 1,000 MG Tablet 1000 MG PO ×2 (07:46→17:33)
[2018-11-05] MEDS: Aspirin E.C. 81 MG Tablet PO (07:46)
[2018-11-05 15:46] VITALS: BP 110/64; PULSE 94; RESP 16; TEMP 36.2; O2SAT 94
[2018-11-05] MEDS: Menthol/Lanolin/Calamine/Znox 113 GM Tube 1 APPLIC TOPICAL (17:33)
[2018-11-05] MEDS: Atorvastatin Calcium 80 MG Tablet PO (20:12)
[2018-11-06] MEDS: Polyethylene Glycol 3350 17 GM PACKET PO (05:24)
[2018-11-06] MEDS: Lisinopril 40 MG Tablet PO (05:26)
[2018-11-06] MEDS: Senna/Docusate Sodium 1 Tablet PO ×2 (05:26→17:20)
[2018-11-06] MEDS: Escitalopram Oxalate 10 MG Tablet PO (05:28)
[2018-11-06] MEDS: Enoxaparin 40 MG/0.4 ML Syringe SC (05:28)
[2018-11-06] MEDS: Menthol/Lanolin/Calamine/Znox 113 GM Tube 1 APPLIC TOPICAL ×2 (05:30→17:24)
[2018-11-06] MEDS: Nystatin Powder 15gm Bottle 1 APPLIC TOPICAL ×3 (05:30→20:24)
[2018-11-06] MEDS: Glucerna Shake 120 ML LIQUID PO ×4 (05:31→20:17)
[2018-11-06 06:40] LABS: Bedside Glucose 175 mg/dL (70-110)
[2018-11-06] MEDS: metFORMIN HCl 1,000 MG Tablet 1000 MG PO ×2 (09:02→17:20)
[2018-11-06] MEDS: Aspirin E.C. 81 MG Tablet PO (09:02)
--- NOTE | 2018-11-06 14:17 | MDS.RN ---
Information for the mds was obtained from review of the clinical record, interview of resident, staff, and direct observation of resident's care.
--- NOTE | 2018-11-06 15:13 | PCM.PN.RX ---
<RamanrachellcalEfren D - Last Filed: 11/06/18 15:13> Progress Note - Pharmacy Subjective: TCU Follow-Up Objective: Allergies hornet venom Allergy (Verified 09/08/18 18:16) Unknown Current Medications Generic Name Dose Route Start Last Admin Trade Name Freq PRN Reason Stop Dose Admin Acetaminophen 1,000 mg 10/01/18 16:19 10/19/18 12:45 Tylenol PO 1,000 mg Q6H PRN Administration MILD PAIN (1-310) Albuterol Sulfate 2.5 mg 10/19/18 08:30 Ventolin Aerosols INHALATION Q2H PRN PRN SHORTNESS OF BREATH Aspirin 81 mg 10/02/18 08:00 11/06/18 09:02 Ecotrin PO 81 mg DAILYCM HOWIE Administration Atorvastatin Calcium 80 mg 10/01/18 22:00 11/05/18 20:12 Lipitor PO 80 mg QHS HOWIE Administration Bisacodyl 10 mg 10/01/18 16:24 Dulcolax RECTAL DAILY PRN Constipation Calamine/Phenol 1 applic 10/01/18 18:00 11/06/18 05:30 Calmoseptine Ointment TOPICAL 1 applicatio BID HOWIE Administration Protocol Enoxaparin Sodium 40 mg 10/02/18 06:00 11/06/18 05:28 Lovenox SC 40 mg DAILY@0600 HOWIE Administration Escitalopram Oxalate 10 mg 10/02/18 06:00 11/06/18 05:28 Lexapro PO 10 mg DAILY HOWIE Administration Sodium Chloride 250 mls @ 15 mls/hr 10/20/18 04:50 IV .[id number] PRN SALINE FLUSH Lisinopril 40 mg 10/02/18 06:00 11/06/18 05:26 Zestril PO 40 mg DAILY HOWIE Administration Metformin HCl 1,000 mg 10/01/18 17:00 11/06/18 09:02 Glucophage PO 1,000 mg BIDCM HOWIE Administration Nutritional Formula (Lactose Free) 120 ml 10/02/18 06:00 11/06/18 11:34 Glucerna Shake PO 120 ml 4X/DAY HOWIE Administration Nystatin 1 applic 10/01/18 22:00 11/06/18 13:38 Mycostatin Powder TOPICAL 1 applicatio TID HOWIE Administration Protocol Polyethylene Glycol 17 gm 10/02/18 06:00 03/04/19 05:24 Miralax PO 17 gm DAILY HOWIE Administration Senna/Docusate Sodium 1 tablet 10/01/18 18:00 11/06/18 05:26 Senokot-S, Joy-Colace PO 1 tablet BID HOWIE Administration Sodium Chloride 10 ml 10/19/18 07:58 10/29/18 20:55 IV 10 ml PRN PRN Administration saline lock flushing Sodium Chloride 10 - 20 ml 10/20/18 04:50 10/26/18 19:51 IV 10 ml UD PRN Administration Midline Flush Problem List Right hemiparesis (Chronic) Dysphagia (Acute) Vital Signs Temp Pulse Resp BP Pulse Ox 97.2 F L 94 16 110/64 94 11/05/18 15:46 11/05/18 15:46 11/05/18 15:46 11/05/18 15:46 11/05/18 15:46 Oxygen Flow Rate (L/min) 2 Oxygen Delivery Method Room Air Weight: 93.015 kg Body Mass Index (BMI) 28.7 Finger Stick Blood Glucose 268 Sodium 136 mmol/L (136-145) 11/02/18 07:10 Potassium 4.1 mmol/L (3.5-5.1) 11/02/18 07:10 Chloride 104 mmol/L (98-107) 11/02/18 07:10 Carbon Dioxide 28.0 mmol/L (21.0-32.0) 11/02/18 07:10 Anion Gap 4 (5-15) L 11/02/18 07:10 BUN 17 mg/dL (7-18) 11/02/18 07:10 Creatinine 0.63 mg/dL (0.70-1.30) L 11/02/18 07:10 Est GFR (MDRD) Af Amer 164 mL/min (>60) 11/02/18 07:10 Est GFR (MDRD) Non-Af 135 mL/min (>60) 11/02/18 07:10 BUN/Creatinine Ratio 27.2 RATIO (10-20) H 11/02/18 07:10 Glucose 173 mg/dL (74-106) H 11/02/18 07:10 Assessment/Plan: 1) Pain APAP for mild pain. Continue to monitor prn medication use, daily pain scores. 2) Stroke ASA, atorvastatin. Continue to monitor lipids, s/s stroke. 3) HTN Lisinopril. Continue to monitor BP/HR, renal function, electrolytes. 4) DM2 Metformin. Continue to monitor renal function, BGT. 5) DVT PPx Enoxaparin daily. Continue to monitor for bleeding/clot. Psychotropic Medications: 6) Depression Escitalopram daily. Continue to monitor s/s depression. Unnecessary Medications: None Bowel Regimen: 7) Senna/s, PEG, prn bisacodyl. Continue to monitor prn medication use, for constipation/diarrhea. Date of Note:: 11/06/18 - Provider Comments Provider responsibility: Provider responsible to enter orders to implement recommendations <Miguel Foster Chi - Last Filed: 11/06/18 15:39> Progress Note - Pharmacy Subjective: [] Objective: Allergies hornet venom Allergy (Verified 09/08/18 18:16) Unknown Current Medications Generic Name Dose Route Start Last Admin Trade Name Freq PRN Reason Stop Dose Admin Acetaminophen 1,000 mg 10/01/18 16:19 10/19/18 12:45 Tylenol PO 1,000 mg Q6H PRN Administration MILD PAIN (1-3/10) Albuterol Sulfate 2.5 mg 10/19/18 08:30 Ventolin Aerosols INHALATION Q2H PRN PRN SHORTNESS OF BREATH Aspirin 81 mg 10/02/18 08:00 11/06/18 09:02 Ecotrin PO 81 mg DAILYCM HOWIE Administration Atorvastatin Calcium 80 mg 10/01/18 22:00 11/05/18 20:12 Lipitor PO 80 mg QHS HOWIE Administration Bisacodyl 10 mg 10/01/18 16:24 Dulcolax RECTAL DAILY PRN Constipation Calamine/Phenol 1 applic 10/01/18 18:00 11/06/18 05:30 Calmoseptine Ointment TOPICAL 1 applicatio BID HOWIE Administration Protocol Enoxaparin Sodium 40 mg 10/02/18 06:00 11/06/18 05:28 Lovenox SC 40 mg DAILY@0600 HOWIE Administration Escitalopram Oxalate 10 mg 10/02/18 06:00 11/06/18 05:28 Lexapro PO 10 mg DAILY HOWIE Administration Sodium Chloride 250 mls @ 15 mls/hr 10/20/18 04:50 IV .[id number] PRN SALINE FLUSH Lisinopril 40 mg 10/02/18 06:00 11/06/18 05:26 Zestril PO 40 mg DAILY HOWIE Administration Metformin HCl 1,000 mg 10/01/18 17:00 11/06/18 09:02 Glucophage PO 1,000 mg BIDCM HOWIE Administration Nutritional Formula (Lactose Free) 120 ml 10/02/18 06:00 11/06/18 11:34 Glucerna Shake PO 120 ml 4X/DAY HOWIE Administration Nystatin 1 applic 10/01/18 22:00 11/06/18 13:38 Mycostatin Powder TOPICAL 1 applicatio TID HOWIE Administration Protocol Polyethylene Glycol 17 gm 10/02/18 06:00 11/06/18 05:24 Miralax PO 17 gm DAILY HOWIE Administration Senna/Docusate Sodium 1 tablet 10/01/18 18:00 11/06/18 05:26 Senokot-S, Joy-Colace PO 1 tablet BID HOWIE Administration Sodium Chloride 10 ml 10/19/18 07:58 10/29/18 20:55 IV 10 ml PRN PRN Administration saline lock flushing Sodium Chloride 10 - 20 ml 10/20/18 04:50 10/26/18 19:51 IV 10 ml UD PRN Administration Midline Flush Problem List Right hemiparesis (Chronic) Dysphagia (Acute) Vital Signs Temp Pulse Resp BP Pulse Ox 97.2 F L 94 16 110/64 94 11/05/18 15:46 11/05/18 15:46 11/05/18 15:46 11/05/18 15:46 11/05/18 15:46 Oxygen Flow Rate (L/min) 2 Oxygen Delivery Method Room Air Weight: 93.015 kg Body Mass Index (BMI) 28.7 Finger Stick Blood Glucose 268 Sodium 136 mmol/L (136-145) 11/02/18 07:10 Potassium 4.1 mmol/L (3.5-5.1) 11/02/18 07:10 Chloride 104 mmol/L (98-107) 11/02/18 07:10 Carbon Dioxide 28.0 mmol/L (21.0-32.0) 11/02/18 07:10 Anion Gap 4 (5-15) L 11/02/18 07:10 BUN 17 mg/dL (7-18) 11/02/18 07:10 Creatinine 0.63 mg/dL (0.70-1.30) L 11/02/18 07:10 Est GFR (MDRD) Af Amer 164 mL/min (>60) 11/02/18 07:10 Est GFR (MDRD) Non-Af 135 mL/min (>60) 11/02/18 07:10 BUN/Creatinine Ratio 27.2 RATIO (10-20) H 11/02/18 07:10 Glucose 173 mg/dL (74-106) H 11/02/18 07:10 Assessment/Plan: Psychotropic Medications: Unnecessary Medications: Bowel Regimen: - Provider Comments Provider responsibility: Provider responsible to enter orders to implement recommendations Provider Comments to Recommendations by Pharmacy: Agree
[2018-11-06 15:41] VITALS: BP 127/75; PULSE 106; RESP 18; TEMP 36.6; O2SAT 92
[2018-11-06 18:14] VITALS: TEMP 36.9
[2018-11-06] MEDS: Atorvastatin Calcium 80 MG Tablet PO (20:18)
[2018-11-06 20:25] VITALS: PULSE 102; RESP 16; O2SAT 96
--- NOTE | 2018-11-07 01:20 | NURSING ---
Addendum entered by Che Solorzano 11/07/18 07:38: Called pts , Fabiola and updated her on pt. Original Note: When rounding, SENIOR J[employer] J[employer]EE DEVELOPER noticed pt very hot and sweaty. Pt states he feels fine. Vitals taken-bp 135/78, temp 100.3, HR 147 reg, 87% RA, resp 20. PRN tylenol given for low grade temp and 2L NC applied. Dr. Foster aware, and new order for chest xray, resp panel, UA, CBC, BMP, 1L bolus, NS @ 60ml/hr, and zosyn 3.375 x7 days. Will update pts in the morning. Continuing to monitor.
[2018-11-07] MEDS: Acetaminophen 500 MG Tablet 1000 MG PO (01:32)
--- NOTE | 2018-11-07 01:50 | RAD_ITS ---
STUDY: X-RAY CHEST REASON FOR EXAM: Male, 68 years old. Fever TECHNIQUE: Single frontal view of the chest. COMPARISON: October 20, 2018 FINDINGS: Low lung volumes. Left basilar atelectasis. No focal consolidation. No pneumothorax. No pleural effusion. Normal size heart. Normal mediastinum and teresita. Aortic calcifications. There are diffuse degenerative changes of the visualized thoracic spine. Normal visualized ribs, clavicles, and shoulders. There is no demonstrated abnormality of the visualized soft tissue structures of the upper abdomen. RAD/Chest 1 View (Portable) IMPRESSION: Left basal atelectasis. No focal consolidation. Electronically Signed: Mc Zapata, at 4:55 EST Tel , Service support ,
[2018-11-07] MEDS: 0.9% Normal Saline 1,000 ML 999 ML IV ×2 (02:37→06:14)
[2018-11-07 04:09] LABS: Squamous Epithelial Cells - UA 0 SEEN /hpf (0-5)
[2018-11-07] MEDS: 0.9% Normal Saline 1,000 ML 60 ML IV (04:17)
[2018-11-07 04:19] LABS: Color, Urine Yellow (Yellow); Glucose, Dipstick 250 mg/dl (Normal); Leukocyte Esterase-Dipstick 100 /ul (Negative); Nitrite-Dipstick Positive (Negative); Occult Blood-Urine 150 /ul (Negative); Protein-Dipstick 30 mg/dl (Negative); Urine Clarity Sl. Cloudy (Clear); Urine Urobilinogen 1 mg/dl (Normal)
[2018-11-07] MEDS: 0.9% Saline Lock 10 ML Syringe IV ×2 (04:23→22:26)
[2018-11-07 04:27] LABS: Ketone-Dipstick 150 mg/dl (Negative); Urine Bilirubin Dipstick 1 mg/dL (Negative)
[2018-11-07 04:28] LABS: Absolute Lymphocyte Count 1.34 X10^3/ul (0.83-4.51); Absolute Neutrophil Count 15.2 X10^3/uL (2.0-7.7); Basophil# 0.02 X10^3/uL; Basophil% 0.1 % (0-1); Eosinophil# 0.01 X10^3/uL; Eosinophils% 0.1 % (0-5); Hematocrit 41.6 % (40-54); Hemoglobin 13.6 g/dl (13.0-16.5); Lymphocyte # 1.34 X10^3/ul (4.0); Lymphocyte % 7.3 % (19-41); Mean Corp Hgb Conc 32.7 g/gl (32-36); Mean Corpuscular Hgb 27.1 pg (27.0-32.0); Monocyte# 1.64 X10^3/uL; Neutrophil # 15.22 X10^3/uL (2.7-7.7); Neutrophil % 83.2 % (47-70); Platelet Count 212 K/mm3 (150-450); RBC Distribution Width CV 15.2 % (11.6-14.6); RBC Distribution Width SD 46.4 fl (35.1-43.9); Red Blood Count 5.01 M/mm3 (4.6-6.2); White Blood Count 18.3 K/mm3 (4.4-11.0)
[2018-11-07 04:30] LABS: Differential Indicated SCAN CRITERIA MET; POSITIVE COUNT NO; POSITIVE DIFFERENTIAL YES; POSITIVE MORPHOLOGY NO
[2018-11-07 04:36] LABS: White Blood Cells 10-25 SEEN /hpf (0-5)
[2018-11-07 04:37] LABS: Bacteria 2+ /hpf (None Seen); Mucous, Urine 1+ /hpf (<or=2+); Red Blood Cells-Urine 5-10 SEEN /hpf (0-5)
[2018-11-07 04:39] LABS: Anion Gap 11 (5-15); BUN 17 mg/dL (7-18); BUN/Creat Ratio 24.5 RATIO (10-20); Chloride 105 mmol/L (98-107); Creatinine, Serum 0.69 mg/dL (0.70-1.30); EST Glomerular Filtration Rate 120 mL/min (>60); Est Glom Filt Rate - Afr Amer 145 mL/min (>60); Estimated Creatinine Clearance 71.99 ml/min; Glucose 263 mg/dL (74-106); Potassium 4.4 mmol/L (3.5-5.1); Sodium Level 138 mmol/L (136-145)
[2018-11-07 04:56] LABS: Reactive Lymphocyte 1+
--- NOTE | 2018-11-07 05:05 | NURSING ---
Lab called for a critical urine ketone level of 150. Dr. Foster aware, and new order for 1L bolus and NS @ 75ml/hr. Will continue to monitor.
[2018-11-07] MEDS: Lisinopril 40 MG Tablet PO (05:20)
[2018-11-07] MEDS: Polyethylene Glycol 3350 17 GM PACKET PO (05:20)
[2018-11-07] MEDS: Senna/Docusate Sodium 1 Tablet PO ×2 (05:20→17:16)
[2018-11-07] MEDS: Escitalopram Oxalate 10 MG Tablet PO (05:20)
[2018-11-07] MEDS: Enoxaparin 40 MG/0.4 ML Syringe SC (05:20)
[2018-11-07] MEDS: Nystatin Powder 15gm Bottle 1 APPLIC TOPICAL ×3 (05:23→20:52)
[2018-11-07] MEDS: Menthol/Lanolin/Calamine/Znox 113 GM Tube 1 APPLIC TOPICAL ×2 (05:23→17:24)
[2018-11-07] MEDS: Glucerna Shake 120 ML LIQUID PO ×4 (05:24→20:51)
[2018-11-07 07:01] LABS: Bedside Glucose 277 mg/dL (70-110)
[2018-11-07] MEDS: 0.9% Normal Saline 1,000 ML 75 ML IV (07:35)
--- NOTE | 2018-11-07 07:35 | NURSING ---
All care provide in patient room remains in precaution
--- NOTE | 2018-11-07 08:15 | NURSING ---
Dr Foster aware Of CXR results
--- NOTE | 2018-11-07 08:26 | PCM.TCUNOT ---
Subjective: Resident seen in room, lying in bed, he is awake, alert, but appears tired. Nursing noted fever, tachycardia last night, evaluation was ordered. Vitals/I&O's: Vital Signs Temp Pulse Resp BP Pulse Ox 98.5 F 102 H 16 127/75 H 96 11/06/18 18:14 11/06/18 20:25 11/06/18 20:25 11/06/18 15:41 11/06/18 20:25 Oxygen Flow Rate (L/min) 2 Oxygen Delivery Method Room Air Weight: 93.015 kg Body Mass Index (BMI) 28.7 Finger Stick Blood Glucose 268 Intake and Output for Last 24 Hours 11/05/18 11/06/18 11/07/18 23:59 23:59 23:59 Intake Total 720 / 720 1320 / 1320 120 / 120 Balance 720 / 720 1320 / 1320 120 / 120 Laboratory Results 11/07/18 03:55: Urine Color Yellow, Urine Clarity Sl. Cloudy, Urine pH 5.0, Ur Specific [place] 1.020, Urine Protein 30 H, Urine Glucose (UA) 250 H, Urine Ketones 150 H, Urine Occult Blood 150 H, Urine Nitrite Positive H, Urine Bilirubin 1 H, Urine Urobilinogen 1 H, Ur Leukocyte Esterase 100 H, Urine RBC 5-10 SEEN, Urine WBC 10-25 SEEN, Ur Squamous Epith Cells 0 SEEN, Urine Bacteria 2+, Urine Mucus 1+ 11/07/18 04:16: WBC 18.3 H, RBC 5.01, Hgb 13.6, Hct 41.6, MCV 83.0, MCH 27.1, MCHC 32.7, RDW 15.2 H, RDW Differential 46.4 H, Plt Count 212, MPV 10.0, Immature Gran % (Auto) 0.300, Neut % (Auto) 83.2 H, Lymph % (Auto) 7.3 L, Lea % (Auto) 9.0, Eos % (Auto) 0.1, Baso % (Auto) 0.1, Absolute Neuts (auto) 15.2 H, Absolute Lymphs (auto) 1.34, Total Counted Not Reportable, Differential Comment , Diff Path Review May , Reactive Lymphocytes 1+ 11/07/18 04:16: Sodium 138, Potassium 4.4, Chloride 105, Carbon Dioxide 22.0, Anion Gap 11, BUN 17, Creatinine 0.69 L, Estim Creat Clear Calc 71.99, Est GFR (MDRD) Af Amer 145, Est GFR (MDRD) Non-Af 120, BUN/Creatinine Ratio 24.5 H, Glucose 263 H, Calcium 8.0 L 11/07/18 06:44: POC Glucose 277 H Past Medical History Past Medical History (Chronic Problems): Chronic Problems HTN (hypertension) (Chronic) HLD (hyperlipidemia) (Chronic) Obesity (BMI 30.0-34.9) (Chronic) Right hemiparesis (Chronic) Allergies hornet venom Allergy (Verified 09/08/18 18:16) Unknown Home Medications: Ambulatory Orders Medication Instructions Recorded Aspirin [Aspir 81] 81 mg PO DAILY 09/08/18 Atorvastatin Calcium 80 mg PO QHS 09/08/18 Clopidogrel Bisulfate [Plavix] 75 mg PO DAILY 09/08/18 Bisacodyl [Dulcolax] 10 mg RECTAL DAILY PRN 10/01/18 Enoxaparin [Lovenox] 40 mg SC DAILY@0600 10/01/18 Escitalopram Oxalate [Lexapro] 10 mg PO DAILY 10/01/18 Insulin Lispro [Humalog KwikPen] See Protocol SC ACHS 10/01/18 Lisinopril [Zestril] 40 mg PO DAILY 10/01/18 Menthol/Lanolin/Calamine/Znox 1 applic TOPICAL BID 10/01/18 [Calmoseptine Ointment] Metformin HCl [Glucophage] 1,000 mg PO BIDCM 10/01/18 Multivitamins,Ther W-Minerals 1 tablet PO DAILY@0800 10/01/18 [Multivitamin With Minerals] Nystatin 500,000 unit PO 4X/DAY 10/01/18 Nystatin Powder [Mycostatin Powder] 1 applic TOPICAL TID 10/01/18 Surgical History: no surgical history, - - Patient denies any surgical history. Psychiatric History: No pertinent psych hx Lives: Spouse/ Significant Other Smoking Status: Never smoker Tobacco Use: Non-smoker Alcohol: None Drugs: None - *Family History Maternal History Items: - - Patient's mother at age 76 with history of cancer. Paternal History Items: - - Patient's father at age 66 with myocardial infarction, current history of diabetes mellitus. Capacity - Capacity Assessment Tool Can the patient make a choice & communicate that choice?: Yes Can the patient understand benefits, risks and alternatives?: Yes Can the patient make a logical, rational choice?: Yes Is the choice the patient makes consistent w/ their values?: Yes Is there an impending, emergent risk to the patient?: Yes Does the patient have an Advance Directive?: Yes Is there a Surrogate Available?: Yes i.e. HCPOA: Yes i.e. close relative (spouse, child, parent, sibling)?: Yes Review of Systems Constitutional: Reports: Malaise, Weakness. Denies: Chills, Fever, Weight Change HEENT: Denies: Head Aches, Sinus Congestion, Sinus Drainage Cardiovascular: Denies: Chest Pain, Palpitations Respiratory: Denies: Cough, Shortness of breath at rest, Sputum production Gastrointestinal: Denies: Abdominal Pain, Nausea, Vomiting Genitourinary: Denies: Dysuria Musculoskeletal: Denies: Joint Pain, Joint Tenderness Skin: Denies: Rash, Wounds Neurological: Denies: Numbness, Tingling, Focal weakness Psychiatric: Denies: Anxiety, Depression, Homicidal Ideations, Suicidal Ideations Hematologic/ Lymphatic: Denies: Easy Bruising, Easy Bleeding Patient Problems: Active and Suspected Problems Dysphagia (Acute) - Physical Exam General: Alert, Oriented x3, Cooperative HEENT: Atraumatic, PERRLA, EOMI, Normocephalic Neck: Supple, No JVD, Negative Carotid Bruits Lungs: Clear to auscultation, Normal air movement Cardiovascular: Regular rate, No murmurs Abdomen: Bowel Sounds Present, Soft, Non Tender Extremities: No edema, Capillary Refill Less than 3 Seconds Skin: No rashes, No breakdown Musculoskeletal: No Tenderness to Palpation of Joints or Extremities Neurological: Cranial nerves II-XII grossly intact Psych/Mental Status: Normal Affect, Appropriate Vital Signs Temp Pulse Resp BP Pulse Ox 98.5 F 102 H 16 127/75 H 96 11/06/18 18:14 11/06/18 20:25 11/06/18 20:25 11/06/18 15:41 11/06/18 20:25 Oxygen Flow Rate (L/min) 2 Oxygen Delivery Method Room Air Weight: 93.015 kg Body Mass Index (BMI) 28.7 Finger Stick Blood Glucose 268 Intake and Output for Last 24 Hours 11/05/18 11/06/1819 23:59 23:59 23:59 Intake Total 720 / 720 1320 / 1320 120 / 120 Balance 720 / 720 1320 / 1320 120 / 120 Laboratory Tests Past 24 Hrs 11/07/18 11/07/18 11/07/18 03:55 04:16 04:16 WBC 18.3 H RBC 5.01 Hgb 13.6 Hct 41.6 MCV 83.0 MCH 27.1 MCHC 32.7 RDW 15.2 H RDW Differential 46.4 H Plt Count 212 MPV 10.0 Immature Gran % (Auto) 0.300 Neut % (Auto) 83.2 H Lymph % (Auto) 7.3 L Le[place] % (Auto) 9.0 Eos % (Auto) 0.1 Baso % (Auto) 0.1 Absolute Neuts (auto) 15.2 H Absolute Lymphs (auto) 1.34 Total Counted Not Reportable Differential Comment Diff Path Review May foll Reactive Lymphocytes 1+ Sodium 138 Potassium 4.4 Chloride 105 Carbon Dioxide 22.0 Anion Gap 11 BUN 17 Creatinine 0.69 L Estim Creat Clear Calc 71.99 Est GFR (MDRD) Af Amer 145 Est GFR (MDRD) Non-Af 120 BUN/Creatinine Ratio 24.5 H Glucose 263 H Calcium 8.0 L Urine Color Yellow Urine Clarity Sl. Cloudy Urine pH 5.0 Ur Specific [place] 1.020 Urine Protein 30 H Urine Glucose (UA) 250 H Urine Ketones 150 H Urine Occult Blood 150 H Urine Nitrite Positive H Urine Bilirubin 1 H Urine Urobilinogen 1 H Ur Leukocyte Esterase 100 H Urine RBC 5-10 SEEN Urine WBC 10-25 SEEN Ur Squamous Epith Cells 0 SEEN Urine Bacteria 2+ Urine Mucus 1+ POC Glucose 11/07/18 06:44 POC Glucose 277 H Assessment/Plan All Active Problems Left acute arterial ischemic stroke, MCA (middle cerebral artery) (Acute) Diabetes mellitus, type II (Acute) Dysphagia (Acute) 68 year old male with below past medical hospitalized for Left MCA stroke, complicated by hypersomnolence, admitted to TCU with debility, here for rebhabiliation, strengthening, prior to discharge home with spouse. Fever - CBC with diff, BMP, Respiratory panel pending, straight cath UA, C+S, Chest X-ray shows left basilar atelectasis. Tachycardia - secondary to dehydration. Urinary Tract infection - UA +nitrite, 100 leukocyte, urine send for C+S. Zosyn 3.375GM IV Q8H x 7 days, will deescalate antibiotics once culture results available. Leukocytosis - WBC 18.3. Dehydration - urine ketones 150, Normal Saline 2 Liters IV bolus, then 75cc/hour, monitor closely, resident did eat well yesterday.
--- NOTE | 2018-11-07 08:32 | PN_ITS ---
Subjective: Resident seen in room, lying in bed, he is awake, alert, but appears tired. Nursing noted fever, tachycardia last night, evaluation was ordered. Vitals/I&O's: Vital Signs Temp Pulse Resp BP Pulse Ox 98.5 F 102 H 16 127/75 H 96 11/06/18 18:14 11/06/18 20:25 11/06/18 20:25 11/06/18 15:41 11/06/18 20:25 Oxygen Flow Rate (L/min) 2 Oxygen Delivery Method Room Air Weight: 93.015 kg Body Mass Index (BMI) 28.7 Finger Stick Blood Glucose 268 Intake and Output for Last 24 Hours 11/05/18 11/06/18 11/07/18 23:59 23:59 23:59 Intake Total 720 / 720 1320 / 1320 120 / 120 Balance 720 / 720 1320 / 1320 120 / 120 Laboratory Results 11/07/18 03:55: Urine Color Yellow, Urine Clarity Sl. Cloudy, Urine pH 5.0, Ur Specific [place] 1.020, Urine Protein 30 H, Urine Glucose (UA) 250 H, Urine Ketones 150 H, Urine Occult Blood 150 H, Urine Nitrite Positive H, Urine Bilirubin 1 H, Urine Urobilinogen 1 H, Ur Leukocyte Esterase 100 H, Urine RBC 5- 10 SEEN, Urine WBC 10-25 SEEN, Ur Squamous Epith Cells 0 SEEN, Urine Bacteria 2+, Urine Mucus 1+ 11/07/18 04:16: WBC 18.3 H, RBC 5.01, Hgb 13.6, Hct 41.6, MCV 83.0, MCH 27.1, MCHC 32.7, RDW 15.2 H, RDW Differential 46.4 H, Plt Count 212, MPV 10.0, Immature Gran % (Auto) 0.300, Neut % (Auto) 83.2 H, Lymph % (Auto) 7.3 L, [place] % (Auto) 9.0, Eos % (Auto) 0.1, Baso % (Auto) 0.1, Absolute Neuts (auto) 15.2 H, Absolute Lymphs (auto) 1.34, Total Counted Not Reportable, Differential Comment , Diff Path Review May , Reactive Lymphocytes 1+ 11/07/18 04:16: Sodium 138, Potassium 4.4, Chloride 105, Carbon Dioxide 22.0, Anion Gap 11, BUN 17, Creatinine 0.69 L, Estim Creat Clear Calc 71.99, Est GFR (MDRD) Af Amer 145, Est GFR (MDRD) Non-Af 120, BUN/Creatinine Ratio 24.5 H, Glucose 263 H, Calcium 8.0 L 11/07/18 06:44: POC Glucose 277 H Past Medical History Past Medical History (Chronic Problems): Chronic Problems HTN (hypertension) (Chronic) HLD (hyperlipidemia) (Chronic) Obesity (BMI 30.0-34.9) (Chronic) Right hemiparesis (Chronic) Allergies hornet venom Allergy (Verified 09/08/18 18:16) Unknown Home Medications: Ambulatory Orders Medication Instructions Recorded Aspirin [Aspir 81] 81 mg PO DAILY 09/08/18 Atorvastatin Calcium 80 mg PO QHS 09/08/18 Clopidogrel Bisulfate [Plavix] 75 mg PO DAILY 09/08/18 Bisacodyl [Dulcolax] 10 mg RECTAL DAILY PRN 10/01/18 Enoxaparin [Lovenox] 40 mg SC DAILY@0600 10/01/18 Escitalopram Oxalate [Lexapro] 10 mg PO DAILY 10/01/18 Insulin Lispro [Humalog KwikPen] See Protocol SC ACHS 10/01/18 Lisinopril [Zestril] 40 mg PO DAILY 10/01/18 Menthol/Lanolin/Calamine/Znox 1 applic TOPICAL BID 10/01/18 [Calmoseptine Ointment] Metformin HCl [Glucophage] 1,000 mg PO BIDCM 10/01/18 Multivitamins,Ther W-Minerals 1 tablet PO DAILY@0800 10/01/18 [Multivitamin With Minerals] Nystatin 500,000 unit PO 4X/DAY 10/01/18 Nystatin Powder [Mycostatin Powder] 1 applic TOPICAL TID 10/01/18 Surgical History: no surgical history, - - Patient denies any surgical history. Psychiatric History: No pertinent psych hx Lives: Spouse/ Significant Other Smoking Status: Never smoker Tobacco Use: Non-smoker Alcohol: None Drugs: None - *Family History Maternal History Items: - - Patient's mother at age 76 with history of cancer. Paternal History Items: - - Patient's father at age 66 with myocardial infarction, current history of diabetes mellitus. Capacity - Capacity Assessment Tool Can the patient make a choice & communicate that choice?: Yes Can the patient understand benefits, risks and alternatives?: Yes Can the patient make a logical, rational choice?: Yes Is the choice the patient makes consistent w/ their values?: Yes Is there an impending, emergent risk to the patient?: Yes Does the patient have an Advance Directive?: Yes Is there a Surrogate Available?: Yes i.e. HCPOA: Yes i.e. close relative (spouse, child, parent, sibling)?: Yes Review of Systems Constitutional: Reports: Malaise, Weakness. Denies: Chills, Fever, Weight Change HEENT: Denies: Head Aches, Sinus Congestion, Sinus Drainage Cardiovascular: Denies: Chest Pain, Palpitations Respiratory: Denies: Cough, Shortness of breath at rest, Sputum production Gastrointestinal: Denies: Abdominal Pain, Nausea, Vomiting Genitourinary: Denies: Dysuria Musculoskeletal: Denies: Joint Pain, Joint Tenderness Skin: Denies: Rash, Wounds Neurological: Denies: Numbness, Tingling, Focal weakness Psychiatric: Denies: Anxiety, Depression, Homicidal Ideations, Suicidal Ideations Hematologic/ Lymphatic: Denies: Easy Bruising, Easy Bleeding Patient Problems: Active and Suspected Problems Dysphagia (Acute) - Physical Exam General: Alert, Oriented x3, Cooperative HEENT: Atraumatic, PERRLA, EOMI, Normocephalic Neck: Supple, No JVD, Negative Carotid Bruits Lungs: Clear to auscultation, Normal air movement Cardiovascular: Regular rate, No murmurs Abdomen: Bowel Sounds Present, Soft, Non Tender Extremities: No edema, Capillary Refill Less than 3 Seconds Skin: No rashes, No breakdown Musculoskeletal: No Tenderness to Palpation of Joints or Extremities Neurological: Cranial nerves II-XII grossly intact Psych/Mental Status: Normal Affect, Appropriate Vital Signs Temp Pulse Resp BP Pulse Ox 98.5 F 102 H 16 127/75 H 96 11/06/18 18:14 11/06/18 20:25 11/06/18 20:25 11/06/18 15:41 11/06/18 20:25 Oxygen Flow Rate (L/min) 2 Oxygen Delivery Method Room Air Weight: 93.015 kg Body Mass Index (BMI) 28.7 Finger Stick Blood Glucose 268 Intake and Output for Last 24 Hours 11/05/18 11/06/1819 23:59 23:59 23:59 Intake Total 720 / 720 1320 / 1320 120 / 120 Balance 720 / 720 1320 / 1320 120 / 120 Laboratory Tests Past 24 Hrs 11/07/18 11/07/18 11/07/18 03:55 04:16 04:16 WBC 18.3 H RBC 5.01 Hgb 13.6 Hct 41.6 MCV 83.0 MCH 27.1 MCHC 32.7 RDW 15.2 H RDW Differential 46.4 H Plt Count 212 MPV 10.0 Immature Gran % (Auto) 0.300 Neut % (Auto) 83.2 H Lymph % (Auto) 7.3 L [place] % (Auto) 9.0 Eos % (Auto) 0.1 Baso % (Auto) 0.1 Absolute Neuts (auto) 15.2 H Absolute Lymphs (auto) 1.34 Total Counted Not Reportable Differential Comment Diff Path Review May foll Reactive Lymphocytes 1+ Sodium 138 Potassium 4.4 Chloride 105 Carbon Dioxide 22.0 Anion Gap 11 BUN 17 Creatinine 0.69 L Estim Creat Clear Calc 71.99 Est GFR (MDRD) Af Amer 145 Est GFR (MDRD) Non-Af 120 BUN/Creatinine Ratio 24.5 H Glucose 263 H Calcium 8.0 L Urine Color Yellow Urine Clarity Sl. Cloudy Urine pH 5.0 Ur Specific [place] 1.020 Urine Protein 30 H Urine Glucose (UA) 250 H Urine Ketones 150 H Urine Occult Blood 150 H Urine Nitrite Positive H Urine Bilirubin 1 H Urine Urobilinogen 1 H Ur Leukocyte Esterase 100 H Urine RBC 5-10 SEEN Urine WBC 10-25 SEEN Ur Squamous Epith Cells 0 SEEN Urine Bacteria 2+ Urine Mucus 1+ POC Glucose 11/07/18 06:44 POC Glucose 277 H Assessment/Plan All Active Problems Left acute arterial ischemic stroke, MCA (middle cerebral artery) (Acute) Diabetes mellitus, type II (Acute) Dysphagia (Acute) 68 year old male with below past medical hospitalized for Left MCA stroke, complicated by hypersomnolence, admitted to TCU with debility, here for rebhabiliation, strengthening, prior to discharge home with spouse. * Fever - CBC with diff, BMP, Respiratory panel pending, straight cath UA, C+S, Chest X-ray shows left basilar atelectasis. * Tachycardia - secondary to dehydration. * Urinary Tract infection - UA +nitrite, 100 leukocyte, urine send for C+S. Zosyn 3.375GM IV Q8H x 7 days, will deescalate antibiotics once culture results available. * Leukocytosis - WBC 18.3. * Dehydration - urine ketones 150, Normal Saline 2 Liters IV bolus, then 75cc/hour, monitor closely, resident did eat well yesterday.
[2018-11-07] MEDS: metFORMIN HCl 1,000 MG Tablet 1000 MG PO ×2 (09:30→17:16)
[2018-11-07] MEDS: Aspirin E.C. 81 MG Tablet PO (09:30)
[2018-11-07 10:35] LABS: Pathologist Review Reviewed
[2018-11-07 11:30] VITALS: PULSE 115; RESP 18; O2SAT 94
[2018-11-07 15:30] VITALS: BP 160/137; PULSE 116; RESP 20; TEMP 36.6; O2SAT 93
--- NOTE | 2018-11-07 18:40 | NURSING ---
PT FACE FLUSHED, TEMP.99.1 TA. ASKED PT IF HE WOULD LIKE SOME TYLENOL. PT STATED NO. REPORTED TO HILDA PACHECO
[2018-11-07 18:44] VITALS: TEMP 37.3
[2018-11-07] MEDS: Atorvastatin Calcium 80 MG Tablet PO (20:53)
[2018-11-08 04:46] LABS: Bedside Glucose 162 mg/dL (70-110)
[2018-11-08] MEDS: 0.9% Saline Lock 10 ML Syringe IV (07:07)
[2018-11-08] MEDS: 0.9% Normal Saline 1,000 ML 75 ML IV (07:08)
[2018-11-08] MEDS: Menthol/Lanolin/Calamine/Znox 113 GM Tube 1 APPLIC TOPICAL ×2 (07:09→18:22)
[2018-11-08] MEDS: Glucerna Shake 120 ML LIQUID PO ×3 (07:09→18:18)
[2018-11-08] MEDS: Lisinopril 40 MG Tablet PO (07:10)
[2018-11-08] MEDS: Escitalopram Oxalate 10 MG Tablet PO (07:10)
[2018-11-08] MEDS: Senna/Docusate Sodium 1 Tablet PO ×2 (07:10→18:19)
[2018-11-08] MEDS: Enoxaparin 40 MG/0.4 ML Syringe SC (07:10)
[2018-11-08] MEDS: Nystatin Powder 15gm Bottle 1 APPLIC TOPICAL ×3 (07:11→20:03)
[2018-11-08] MEDS: Polyethylene Glycol 3350 17 GM PACKET PO (07:11)
[2018-11-08] MEDS: metFORMIN HCl 1,000 MG Tablet 1000 MG PO ×2 (07:12→18:18)
[2018-11-08] MEDS: Aspirin E.C. 81 MG Tablet PO (07:12)
[2018-11-08 10:00] VITALS: PULSE 96; O2SAT 92
[2018-11-08 15:11] VITALS: BP 117/41; PULSE 108; RESP 18; TEMP 36.4; O2SAT 92
[2018-11-08] MEDS: Atorvastatin Calcium 80 MG Tablet PO (20:01)
[2018-11-09] MEDS: Enoxaparin 40 MG/0.4 ML Syringe SC (05:05)
[2018-11-09] MEDS: Escitalopram Oxalate 10 MG Tablet PO (05:05)
[2018-11-09] MEDS: Lisinopril 40 MG Tablet PO (05:05)
[2018-11-09] MEDS: Polyethylene Glycol 3350 17 GM PACKET PO (05:05)
[2018-11-09] MEDS: Senna/Docusate Sodium 1 Tablet PO ×2 (05:05→17:35)
[2018-11-09] MEDS: Menthol/Lanolin/Calamine/Znox 113 GM Tube 1 APPLIC TOPICAL ×2 (05:06→17:36)
[2018-11-09] MEDS: Nystatin Powder 15gm Bottle 1 APPLIC TOPICAL ×3 (05:06→20:14)
[2018-11-09] MEDS: Glucerna Shake 120 ML LIQUID PO ×3 (05:06→20:12)
[2018-11-09 06:51] LABS: Bedside Glucose 182 mg/dL (70-110)
[2018-11-09] MEDS: metFORMIN HCl 1,000 MG Tablet 1000 MG PO ×2 (08:02→17:35)
[2018-11-09] MEDS: Aspirin E.C. 81 MG Tablet PO (08:02)
--- NOTE | 2018-11-09 08:30 | NURSING ---
NO to D/C zosyn and start cipro PO BID.
--- NOTE | 2018-11-09 13:32 | MDS.RN ---
Pain interview for estrella 11/12/18 completed.
[2018-11-09 15:29] VITALS: BP 121/78; PULSE 96; RESP 16; TEMP 36.8; O2SAT 94
[2018-11-09] MEDS: 0.9% Normal Saline 1,000 ML 75 ML IV (17:28)
[2018-11-09] MEDS: Ciprofloxacin 250 MG Tablet PO (17:39)
[2018-11-09 20:05] VITALS: O2SAT 97
[2018-11-09] MEDS: Atorvastatin Calcium 80 MG Tablet PO (20:12)
[2018-11-10] MEDS: Glucerna Shake 120 ML LIQUID PO ×3 (05:48→17:37)
[2018-11-10] MEDS: Polyethylene Glycol 3350 17 GM PACKET PO (05:49)
[2018-11-10] MEDS: Senna/Docusate Sodium 1 Tablet PO ×2 (05:49→17:38)
[2018-11-10] MEDS: Enoxaparin 40 MG/0.4 ML Syringe SC (05:49)
[2018-11-10] MEDS: Escitalopram Oxalate 10 MG Tablet PO (05:49)
[2018-11-10] MEDS: Lisinopril 40 MG Tablet PO (05:49)
[2018-11-10] MEDS: Ciprofloxacin 250 MG Tablet PO ×2 (05:49→17:36)
[2018-11-10] MEDS: Menthol/Lanolin/Calamine/Znox 113 GM Tube 1 APPLIC TOPICAL ×2 (05:57→17:38)
[2018-11-10] MEDS: Nystatin Powder 15gm Bottle 1 APPLIC TOPICAL ×3 (05:57→19:58)
--- NOTE | 2018-11-10 05:59 | NURSING ---
Pt asking if he could decrease the amount of times he has to drink Glucerna. Order changed to with meals. Pt in agreement.
[2018-11-10 06:46] LABS: Bedside Glucose 170 mg/dL (70-110)
[2018-11-10] MEDS: metFORMIN HCl 1,000 MG Tablet 1000 MG PO ×2 (08:00→17:36)
[2018-11-10] MEDS: Aspirin E.C. 81 MG Tablet PO (08:01)
[2018-11-10 15:26] VITALS: BP 113/77; PULSE 95; RESP 20; TEMP 36.8; O2SAT 97
[2018-11-10] MEDS: Atorvastatin Calcium 80 MG Tablet PO (19:57)
[2018-11-11] MEDS: Enoxaparin 40 MG/0.4 ML Syringe SC (06:12)
[2018-11-11] MEDS: Polyethylene Glycol 3350 17 GM PACKET PO (06:12)
[2018-11-11] MEDS: Nystatin Powder 15gm Bottle 1 APPLIC TOPICAL ×3 (06:14→20:40)
[2018-11-11] MEDS: Escitalopram Oxalate 10 MG Tablet PO (06:14)
[2018-11-11] MEDS: Lisinopril 40 MG Tablet PO (06:14)
[2018-11-11] MEDS: Ciprofloxacin 250 MG Tablet PO ×2 (06:14→17:09)
[2018-11-11] MEDS: Senna/Docusate Sodium 1 Tablet PO ×2 (06:14→17:09)
[2018-11-11] MEDS: Menthol/Lanolin/Calamine/Znox 113 GM Tube 1 APPLIC TOPICAL ×2 (06:15→17:14)
[2018-11-11 06:36] LABS: Bedside Glucose 160 mg/dL (70-110)
[2018-11-11] MEDS: metFORMIN HCl 1,000 MG Tablet 1000 MG PO ×2 (08:40→17:09)
[2018-11-11] MEDS: Aspirin E.C. 81 MG Tablet PO (08:41)
[2018-11-11] MEDS: Glucerna Shake 120 ML LIQUID PO ×3 (08:43→17:11)
[2018-11-11 11:30] VITALS: PULSE 85; RESP 18; O2SAT 96
[2018-11-11 15:23] VITALS: BP 118/79; PULSE 100; RESP 16; TEMP 36.9; O2SAT 93
[2018-11-11 17:07] VITALS: BP 146/88; PULSE 88; RESP 20; TEMP 36.5; O2SAT 94
--- NOTE | 2018-11-11 17:08 | NURSING ---
LINING CUTTER reported patient was clammy and did not feel good after walking back from bathroom. Immediately in to assess the patient. Resting comfortably in chair in no apparent distress. Vitals stable as documented. Denied dizziness/lightheadedness. A/Ox3. present. Patient reports he feels better now that he is sitting and not walking. Reports he was short of breath while ambulating. SOLEDAD Franco who has been caring for patient today updated of event. HILDA López also updated.
[2018-11-11] MEDS: Atorvastatin Calcium 80 MG Tablet PO (20:37)
--- NOTE | 2018-11-12 00:01 | NURSING ---
pt cleaned up and repostion in bed.
[2018-11-12 06:21] LABS: Bedside Glucose 166 mg/dL (70-110)
[2018-11-12] MEDS: Polyethylene Glycol 3350 17 GM PACKET PO (06:56)
[2018-11-12] MEDS: Lisinopril 40 MG Tablet PO (06:57)
[2018-11-12] MEDS: Enoxaparin 40 MG/0.4 ML Syringe SC (06:57)
[2018-11-12] MEDS: Ciprofloxacin 250 MG Tablet PO ×2 (06:57→17:44)
[2018-11-12] MEDS: Escitalopram Oxalate 10 MG Tablet PO (06:57)
[2018-11-12] MEDS: Senna/Docusate Sodium 1 Tablet PO ×2 (06:59→17:44)
[2018-11-12] MEDS: Nystatin Powder 15gm Bottle 1 APPLIC TOPICAL ×3 (07:05→21:30)
[2018-11-12] MEDS: Menthol/Lanolin/Calamine/Znox 113 GM Tube 1 APPLIC TOPICAL ×2 (07:06→17:43)
[2018-11-12 07:12] VITALS: PULSE 90; RESP 16; O2SAT 95
[2018-11-12] MEDS: Aspirin E.C. 81 MG Tablet PO (08:59)
[2018-11-12] MEDS: metFORMIN HCl 1,000 MG Tablet 1000 MG PO ×2 (08:59→17:44)
[2018-11-12] MEDS: Glucerna Shake 120 ML LIQUID PO (11:36)
[2018-11-12 15:46] VITALS: BP 127/72; PULSE 99; RESP 16; TEMP 37.1; O2SAT 95
--- NOTE | 2018-11-12 21:25 | PCA ---
Addendum entered by Brittani Jin 11/12/18 21:35: This nurse into room to assess patient. Small abrasion to right knee where patient's knee had hit against the wall. Patient WNL limits no other injuries noted. BP 152/91 P 104 R 18 O2 94 on room air T 98.[address] Foster notified of this, no new orders given. Fabiola notified. motel food service supervisor, Pat notified. Original Note: 20:50 This MEDICAL BILLER CODER(Marily Manning) transferred pt to toilet. Pt used rails on wall and myself to pivot to toilet. When finished on toilet, pt stood using myself and rails on wall so that he could stand. I cleaned pts bottom since he had a BM. Pts legs began to buckle, i tried to get chair under him quickly but was unsuccessful. I then lowered pt to ground. Pt did not hit head, only thing hit was his knee against the wall. Pulled bathroom call light for help, RN and MEDICAL BILLER CODER helped me get pt to chair then to bed.
[2018-11-12] MEDS: Atorvastatin Calcium 80 MG Tablet PO (21:28)
[2018-11-13 06:36] LABS: Bedside Glucose 157 mg/dL (70-110)
[2018-11-13] MEDS: Nystatin Powder 15gm Bottle 1 APPLIC TOPICAL ×3 (06:39→19:48)
[2018-11-13] MEDS: Lisinopril 40 MG Tablet PO (06:40)
[2018-11-13] MEDS: Escitalopram Oxalate 10 MG Tablet PO (06:40)
[2018-11-13] MEDS: Ciprofloxacin 250 MG Tablet PO ×2 (06:40→17:37)
[2018-11-13] MEDS: Menthol/Lanolin/Calamine/Znox 113 GM Tube 1 APPLIC TOPICAL ×2 (06:40→17:38)
[2018-11-13] MEDS: Polyethylene Glycol 3350 17 GM PACKET PO (06:40)
[2018-11-13] MEDS: Senna/Docusate Sodium 1 Tablet PO ×2 (06:40→17:38)
[2018-11-13] MEDS: Enoxaparin 40 MG/0.4 ML Syringe SC (06:50)
[2018-11-13] MEDS: Aspirin E.C. 81 MG Tablet PO (07:53)
[2018-11-13] MEDS: metFORMIN HCl 1,000 MG Tablet 1000 MG PO ×2 (07:53→17:37)
[2018-11-13 09:21] VITALS: PULSE 96; RESP 18; O2SAT 97
--- NOTE | 2018-11-13 12:53 | CASEMGMT ---
Social Work Spoke with resident spouse in regards to discharge plan/support. Resident spouse encouraged by progress that resident has made thus far. Resident spouse reporting that discharge plan is for resident to discharge to a condo, which resident spouse is working on purchasing from resident [id number]. Resident spouse reporting that condo is all on one floor with no steps to enter the home. Resident spouse voicing no concerns at this time. Support provided. Will continue to follow. Jamie CHIN, CHUN
[2018-11-13 15:22] VITALS: BP 126/75; PULSE 95; RESP 18; TEMP 36.6; O2SAT 93
[2018-11-13] MEDS: Glucerna Shake 120 ML LIQUID PO (17:37)
[2018-11-13] MEDS: Atorvastatin Calcium 80 MG Tablet PO (19:48)
[2018-11-14 06:36] LABS: Bedside Glucose 163 mg/dL (70-110)
[2018-11-14] MEDS: Senna/Docusate Sodium 1 Tablet PO ×2 (06:41→17:33)
[2018-11-14] MEDS: Escitalopram Oxalate 10 MG Tablet PO (06:41)
[2018-11-14] MEDS: Enoxaparin 40 MG/0.4 ML Syringe SC (06:41)
[2018-11-14] MEDS: Ciprofloxacin 250 MG Tablet PO ×2 (06:41→17:33)
[2018-11-14] MEDS: Lisinopril 40 MG Tablet PO (06:41)
[2018-11-14] MEDS: Polyethylene Glycol 3350 17 GM PACKET PO (06:42)
[2018-11-14] MEDS: Menthol/Lanolin/Calamine/Znox 113 GM Tube 1 APPLIC TOPICAL ×2 (06:48→17:33)
[2018-11-14] MEDS: Nystatin Powder 15gm Bottle 1 APPLIC TOPICAL ×3 (06:48→20:37)
[2018-11-14] MEDS: Aspirin E.C. 81 MG Tablet PO (09:18)
[2018-11-14] MEDS: metFORMIN HCl 1,000 MG Tablet 1000 MG PO ×2 (09:18→17:33)
[2018-11-14] MEDS: Glucerna Shake 120 ML LIQUID PO ×2 (09:21→11:43)
[2018-11-14 15:52] VITALS: BP 120/75; PULSE 102; RESP 16; TEMP 36.8; O2SAT 91
[2018-11-14 20:00] VITALS: PULSE 94; RESP 16; O2SAT 94
[2018-11-14] MEDS: Atorvastatin Calcium 80 MG Tablet PO (20:38)
[2018-11-15] MEDS: Menthol/Lanolin/Calamine/Znox 113 GM Tube 1 APPLIC TOPICAL ×2 (05:39→17:44)
[2018-11-15] MEDS: Nystatin Powder 15gm Bottle 1 APPLIC TOPICAL ×3 (05:39→20:05)
[2018-11-15] MEDS: Polyethylene Glycol 3350 17 GM PACKET PO (05:40)
[2018-11-15] MEDS: Escitalopram Oxalate 10 MG Tablet PO (05:40)
[2018-11-15] MEDS: Senna/Docusate Sodium 1 Tablet PO (05:40)
[2018-11-15] MEDS: Lisinopril 40 MG Tablet PO (05:40)
[2018-11-15] MEDS: Enoxaparin 40 MG/0.4 ML Syringe SC (05:40)
[2018-11-15 06:46] LABS: Bedside Glucose 209 mg/dL (70-110)
[2018-11-15] MEDS: Aspirin E.C. 81 MG Tablet PO (07:53)
[2018-11-15] MEDS: metFORMIN HCl 1,000 MG Tablet 1000 MG PO ×2 (07:53→17:42)
[2018-11-15] MEDS: Glucerna Shake 120 ML LIQUID PO ×2 (07:53→17:42)
[2018-11-15 10:00] VITALS: PULSE 102; RESP 16; O2SAT 94
[2018-11-15 11:05] LABS: Bedside Glucose 210 mg/dL (70-110)
--- NOTE | 2018-11-15 13:47 | CASEMGMT ---
Social Work Spoke with resident and resident spouse. This healthcare social worker communicating that discharge date has been set for 11/25/18. Resident and resident spouse are agreeable to discharge date and plan for resident to discharge to home with spouse. This healthcare social worker communicating that team is recommending for resident to have continued physical, occupational, and speech therapy along with longterm, home health aide and social work services within the home. Resident and resident spouse are agreeable to recommendation and requesting for home health care to be set up through [facility] ([facility]). Resident spouse reporting that resident will need a front wheeled walker with right sided platform attachment. Resident reporting to have wheelchair and a shower chair already set up within the home. Resident does not have a preference of [employer] medical equipment [employer], [employer] to be utilized. Resident spouse plans to provide transportation home for resident at time of discharge. This healthcare social worker also providing resident spouse with list of private duty aid agencies in the event that further assistance is needed within the home. Support given. [facility] This healthcare social worker making referral for above mentioned home health care services. Order to be completed. Will fax order for walker to [employer] when obtained. Proposed discharge date: 11/25/18 PLAN: Discharge to home with spouse and home health care. CHUN Nettles.
--- NOTE | 2018-11-15 15:15 | CASEMGMT ---
Social Work Noting that resident does not have a primary care physician listed and will need a PCP in order to be able to have home health care. Spoke with resident and resident spouse, unsure about which primary care doctor resident would like to go with at this time, but plan to get back to this social media project manager or nursing staff on what PCP would be their choice. Resident and resident spouse aware that resident will need a PCP in order to be able to have home health care. Proposed discharge date: 11/25/18 PLAN: Discharge to home with spouse and home health care. Jamie CHIN, CHUN
[2018-11-15 15:34] VITALS: BP 121/82; PULSE 106; RESP 16; TEMP 36.3; O2SAT 95
[2018-11-15] MEDS: Atorvastatin Calcium 80 MG Tablet PO (20:05)
--- NOTE | 2018-11-15 20:11 | DCINST_ITS ---
- Discharge Diagnoses Current Active Problems: Current Active and Chronic Problems Right hemiparesis (Chronic) Dysphagia (Acute) You will use the following diet at home:: No restrictions, Regular Your food should be the consistency of: Regular Your liquids should be the consistency of: Regular/Thin Discharge Activity: Return to Normal Activity, May Shower, Use Walker May resume sexual activity in: No Restrictions Weight Bearing Status: Weight bearing as tolerated Call your doctor if you observe: Fever of 101 or Higher, Inability to urinate, Inability to have a bowel movement, Shortness of breath, Chest pain, Uncontrolled pain Allergies/Adverse Reactions: Allergies hornet venom Allergy (Verified 09/08/18 18:16) Unknown Medications to take at Discharge Aspirin [Aspir 81] 81 mg PO DAILY 09/08/18 Menthol/Lanolin/Calamine/Znox [Calmoseptine Ointment] 1 applic TOPICAL BID 10/01/18 Multivitamins,Ther W-Minerals [Multivitamin With Minerals] 1 tablet PO DAILY@0800 10/01/18 Nystatin 500,000 unit PO 4X/DAY 10/01/18 Nystatin Powder [Mycostatin Powder] 1 applic TOPICAL TID 10/01/18 Acetaminophen [Tylenol] 1,000 mg PO Q6H PRN tablet 11/15/18 Atorvastatin Calcium 80 mg PO QHS #30 tab 11/15/18 Escitalopram Oxalate [Lexapro] 10 mg PO DAILY #30 tab 11/15/18 Lisinopril [Zestril] 40 mg PO DAILY #30 tab 11/15/18 Metformin HCl [Glucophage] 1,000 mg PO BIDCM #60 tab 11/15/18 The following prescriptions were given: Atorvastatin Calcium 80 mg PO QHS #30 tab Escitalopram Oxalate [Lexapro] 10 mg PO DAILY #30 tab Lisinopril [Zestril] 40 mg PO DAILY #30 tab Metformin HCl [Glucophage] 1,000 mg PO BIDCM #60 tab Primary Care Physician: Miguel Foster Chi, MD [COURTESY STAFF PHYSICIAN] - Please follow up with your Primary Care Physician in: 1 week. Test Results: Test results from this visit will be discussed in further detail at your follow- up appointment, if applicable. Please Follow Up With: Dr Quintero (cancelled) Please Follow Up With: Endy Ospina MD When: [phone] Please Follow Up With: Bry Aldrich MD (cancelled per request) When: lobo Proposed Discharge Date: 11/25/18
--- NOTE | 2018-11-15 20:11 | PCM.DC.SUM ---
Discharge Date and Diagnosis - Problem List Patient Problems: Active and Suspected Problems Dysphagia (Acute) Date of Admission: 10/01/18 Date of Discharge: 11/25/18 - Primary Discharge Diagnosis Active and Suspected Problems Dysphagia (Acute) - Secondary Discharge Diagnosis Chronic Problems HTN (hypertension) (Chronic) HLD (hyperlipidemia) (Chronic) Obesity (BMI 30.0-34.9) (Chronic) Right hemiparesis (Chronic) Hospital Course and Treatment Imaging Results: 10/01/18 16:22 Diet: Cardiac/Low Cholesterol Food consistency:: Mechanical Soft/Ground Liquid Consistency:: Regular/Thin Dietary Modifications:: Mechanical Soft Diet Pureed Diet Diet Comments: PUREED MEAT-carb controlled-1:1 supvise/verbal cues-check R cheek pocketing Clinical Impression(s) from Imaging Studies Chest X-Ray 11/07/18 01:50 IMPRESSION: Left basal atelectasis. No focal consolidation. Electronically Signed: Mc Zapata, at 4:55 EST Tel , Service support , Labs (Last 48 Hours) 11/14/18 11/15/18 11/15/18 06:19 06:34 10:53 POC Glucose 163 H 209 H 210 H Operations: None Procedures: None Summary of Care Provided: The patient is a 68 year old Male with below past medical hospitalized for Left MCA stroke, complicated by hypersomnolence, admitted to TCU with debility, here for rebhabiliation, strengthening, prior to discharge home with spouse. TCU stay complicated by epistaxis, aspiration pneumonia, urinary tract infection, all resolved. Discharge home with spouse, and Home Health Services. Patient Problems: Active and Suspected Problems Dysphagia (Acute) - Physical Exam Vital Signs Temp Pulse Resp BP Pulse Ox 97.4 F L 106 H 16 121/82 H 95 11/15/18 15:34 11/15/18 15:34 11/15/18 15:34 11/15/18 15:34 11/15/18 15:34 Oxygen Flow Rate (L/min) 2 Oxygen Delivery Method Room Air Weight: 89.613 kg Body Mass Index (BMI) 28.7 Finger Stick Blood Glucose 268 Intake and Output for Last 24 Hours 11/13/18 11/14/18 11/15/18 23:59 23:59 23:59 Intake Total 930 / 930 1380 / 1380 900 / 900 Balance 930 / 930 1380 / 1380 900 / 900 POC Glucose 11/15/18 11/15/18 10:53 06:34 POC Glucose 210 H 209 H Discharge Diet: No Restrictions Discharge Activity: Return to Normal Activity, May Shower, Use Walker May resume sexual activity in: No Restrictions Weight Bearing Status: Weight bearing as tolerated Call your doctor if you observe: Fever of 101 or Higher, Inability to urinate, Inability to have a bowel movement, Shortness of breath, Chest pain, Uncontrolled pain Home Medications: Medications to take at Discharge Aspirin [Aspir 81] 81 mg PO DAILY 09/08/18 Menthol/Lanolin/Calamine/Znox [Calmoseptine Ointment] 1 applic TOPICAL BID 10/01/18 Multivitamins,Ther W-Minerals [Multivitamin With Minerals] 1 tablet PO DAILY@0800 10/01/18 Nystatin 500,000 unit PO 4X/DAY 10/01/18 Nystatin Powder [Mycostatin Powder] 1 applic TOPICAL TID 10/01/18 Acetaminophen [Tylenol] 1,000 mg PO Q6H PRN tablet 11/15/18 Atorvastatin Calcium 80 mg PO QHS #30 tab 11/15/18 Escitalopram Oxalate [Lexapro] 10 mg PO DAILY #30 tab 11/15/18 Lisinopril [Zestril] 40 mg PO DAILY #30 tab 11/15/18 Metformin HCl [Glucophage] 1,000 mg PO BIDCM #60 tab 11/15/18 Following Prescrptions Were Given to Patient: Atorvastatin Calcium 80 mg PO QHS #30 tab Escitalopram Oxalate [Lexapro] 10 mg PO DAILY #30 tab Lisinopril [Zestril] 40 mg PO DAILY #30 tab Metformin HCl [Glucophage] 1,000 mg PO BIDCM #60 tab Primary Care Physician: Miguel Foster Chi, MD [COURTESY STAFF PHYSICIAN] - Please follow up with your Primary Care Physician in: 1 week. Please Follow Up With: Dr Quintero (cancelled) Please Follow Up With: Endy Ospina MD When: [phone] Please Follow Up With: Bry Aldrich MD (cancelled per request) When: lobo Disposition: Home with Home Health Minutes spent on discharge:: 35 Patient Condition:: Stable Medical Necessity - Tobacco Use Smoking Status: Never smoker Tobacco Use: Non-smoker Meaningful Use Info Meaningful Use Diagnoses (Choose all that apply): None applicable
--- NOTE | 2018-11-15 20:14 | HHNOTE_ITS ---
Home Health Note - Plan Overview of reason of hospitalization: The patient is a 68 year old Male with below past medical hospitalized for Left MCA stroke, complicated by hypersomnolence, admitted to TCU with debility, here for rebhabiliation, strengthening, prior to discharge home with spouse. TCU stay complicated by epistaxis, aspiration pneumonia, urinary tract infection, all resolved. Discharge home with spouse, and Home Health Services. Problems: Patient was seen for Right hemiparesis (Chronic) Dysphagia (Acute) Complete List of Medical Problems Left acute arterial ischemic stroke, MCA (middle cerebral artery) (Acute) HTN (hypertension) (Chronic) HLD (hyperlipidemia) (Chronic) Diabetes mellitus, type II (Acute) Obesity (BMI 30.0-34.9) (Chronic) Right hemiparesis (Chronic) Dysphagia (Acute) - Requirements and Reasons Disciplines Needed/Ordered: Long-Term, Physical Therapy, Speech Therapy Reason for Disciplines: Disease Specific Monitoring/education, Medication Management/Knowledge Deficit, Gait Training, Stair Training, Fall Prevention, Home Safety/Equipment Instruction, Balance and/or Posture Training, Transfer Training, Swallowing Exercise/Education, Improvement in Communication Related To: Limited/Poor Endurance, Shortness of Breath with Activity, Physical Impairments, Unsteady Gait/Balance, Fall Risk Patient is unable to leave the home: Without Aid of Supportive Devices (crutches, cane, wheelchair, walker), Without the assistance of another person - Additional Disciplines Additional Disciplines Needed/Ordered: Occupational Therapy, Editorial Specialist, Home Health Aide
[2018-11-16] MEDS: Menthol/Lanolin/Calamine/Znox 113 GM Tube 1 APPLIC TOPICAL ×2 (05:56→17:39)
[2018-11-16] MEDS: Lisinopril 40 MG Tablet PO (05:57)
[2018-11-16] MEDS: Senna/Docusate Sodium 1 Tablet PO ×2 (05:57→17:39)
[2018-11-16] MEDS: Polyethylene Glycol 3350 17 GM PACKET PO (05:57)
[2018-11-16] MEDS: Escitalopram Oxalate 10 MG Tablet PO (05:57)
[2018-11-16] MEDS: Enoxaparin 40 MG/0.4 ML Syringe SC (05:58)
[2018-11-16] MEDS: Nystatin Powder 15gm Bottle 1 APPLIC TOPICAL ×3 (05:58→20:16)
[2018-11-16 06:46] LABS: Bedside Glucose 178 mg/dL (70-110)
[2018-11-16] MEDS: Aspirin E.C. 81 MG Tablet PO (07:49)
[2018-11-16] MEDS: metFORMIN HCl 1,000 MG Tablet 1000 MG PO ×2 (07:49→17:39)
[2018-11-16] MEDS: Glucerna Shake 120 ML LIQUID PO ×2 (07:49→17:38)
--- NOTE | 2018-11-16 08:44 | CASEMGMT ---
Social Work [place] platform [place] [facility] [facility] [place] prior to discharge. Proposed discharge date: 11/25/18 PLAN: Discharge to home with spouse and home health care. Jamie CHIN, CHUN
[2018-11-16 10:00] VITALS: PULSE 104; RESP 16; O2SAT 94
--- NOTE | 2018-11-16 11:36 | CASEMGMT ---
Social Work Resident spouse reporting to have chosen Dr. Foster for a primary care physician for resident. This social work job titles communicating primary care physician information to Dr. Foster. Resident spouse also hesitant about setting up private duty aides and asking this social work job titles to set up private duty aides for resident. This social work job titles communicating that private duty aides are private pay and that this social work job titles is unable to set up this services for resident spouse. Resident spouse reporting to be nervous about process. This social work job titles communicating that the process is not involved and that resident spouse will just need to contact the agencies via phone and have a conversation about openings and communicating what services resident spouse is wanting to utilize. This social work job titles offering emotional support and recognizing with resident spouse that it can be overwhelming to think about resident returning to home. Resident spouse confirming to want to continue to work towards resident returning to home. Support given. Proposed discharge date: 11/25/18 PLAN: Discharge to home with spouse and home health care. Jamie Torres MSW, CHUN
[2018-11-16 15:41] VITALS: BP 125/76; PULSE 107; RESP 20; TEMP 36.6; O2SAT 93
[2018-11-16] MEDS: Atorvastatin Calcium 80 MG Tablet PO (20:17)
[2018-11-17] MEDS: Menthol/Lanolin/Calamine/Znox 113 GM Tube 1 APPLIC TOPICAL ×2 (04:52→18:09)
[2018-11-17] MEDS: Nystatin Powder 15gm Bottle 1 APPLIC TOPICAL ×3 (04:53→20:21)
[2018-11-17] MEDS: Polyethylene Glycol 3350 17 GM PACKET PO (04:54)
[2018-11-17] MEDS: Lisinopril 40 MG Tablet PO (04:55)
[2018-11-17] MEDS: Senna/Docusate Sodium 1 Tablet PO ×2 (04:55→18:02)
[2018-11-17] MEDS: Escitalopram Oxalate 10 MG Tablet PO (04:55)
[2018-11-17] MEDS: Enoxaparin 40 MG/0.4 ML Syringe SC (05:00)
[2018-11-17 07:05] LABS: Bedside Glucose 151 mg/dL (70-110)
[2018-11-17] MEDS: metFORMIN HCl 1,000 MG Tablet 1000 MG PO ×2 (08:35→18:02)
[2018-11-17] MEDS: Aspirin E.C. 81 MG Tablet PO (08:35)
[2018-11-17] MEDS: Glucerna Shake 120 ML LIQUID PO ×2 (08:36→18:05)
[2018-11-17 15:25] VITALS: BP 123/68; PULSE 105; RESP 20; TEMP 36.5; O2SAT 94
[2018-11-17] MEDS: Atorvastatin Calcium 80 MG Tablet PO (20:18)
[2018-11-17 22:43] VITALS: PULSE 101; RESP 18; O2SAT 95
[2018-11-18] MEDS: Senna/Docusate Sodium 1 Tablet PO ×2 (05:54→18:05)
[2018-11-18] MEDS: Lisinopril 40 MG Tablet PO (05:54)
[2018-11-18] MEDS: Polyethylene Glycol 3350 17 GM PACKET PO (05:54)
[2018-11-18] MEDS: Enoxaparin 40 MG/0.4 ML Syringe SC (05:55)
[2018-11-18] MEDS: Escitalopram Oxalate 10 MG Tablet PO (05:55)
[2018-11-18] MEDS: Menthol/Lanolin/Calamine/Znox 113 GM Tube 1 APPLIC TOPICAL ×2 (05:58→16:30)
[2018-11-18] MEDS: Nystatin Powder 15gm Bottle 1 APPLIC TOPICAL ×3 (05:58→20:20)
[2018-11-18] MEDS: metFORMIN HCl 1,000 MG Tablet 1000 MG PO ×2 (08:35→18:05)
[2018-11-18] MEDS: Aspirin E.C. 81 MG Tablet PO (08:35)
[2018-11-18] MEDS: Glucerna Shake 120 ML LIQUID PO ×3 (08:35→18:08)
[2018-11-18 10:00] VITALS: PULSE 96; RESP 16; O2SAT 95
[2018-11-18 15:30] VITALS: BP 110/69; PULSE 104; RESP 16; TEMP 36.7; O2SAT 93
[2018-11-18] MEDS: Atorvastatin Calcium 80 MG Tablet PO (20:17)
[2018-11-19] MEDS: Polyethylene Glycol 3350 17 GM PACKET PO (06:34)
[2018-11-19] MEDS: Enoxaparin 40 MG/0.4 ML Syringe SC (06:34)
[2018-11-19] MEDS: Lisinopril 40 MG Tablet PO (06:34)
[2018-11-19] MEDS: Senna/Docusate Sodium 1 Tablet PO ×2 (06:34→17:41)
[2018-11-19] MEDS: Menthol/Lanolin/Calamine/Znox 113 GM Tube 1 APPLIC TOPICAL ×2 (06:35→17:56)
[2018-11-19] MEDS: Escitalopram Oxalate 10 MG Tablet PO (06:35)
[2018-11-19] MEDS: Nystatin Powder 15gm Bottle 1 APPLIC TOPICAL ×3 (06:35→20:46)
[2018-11-19 06:45] LABS: Bedside Glucose 153 mg/dL (70-110)
[2018-11-19] MEDS: Glucerna Shake 120 ML LIQUID PO ×3 (08:46→17:42)
[2018-11-19] MEDS: Aspirin E.C. 81 MG Tablet PO (08:46)
[2018-11-19] MEDS: metFORMIN HCl 1,000 MG Tablet 1000 MG PO ×2 (08:46→17:41)
[2018-11-19 15:38] VITALS: BP 97/50; PULSE 96; RESP 16; TEMP 36.7; O2SAT 95
[2018-11-19] MEDS: Atorvastatin Calcium 80 MG Tablet PO (20:41)
[2018-11-20] MEDS: Lisinopril 40 MG Tablet PO (06:28)
[2018-11-20] MEDS: Enoxaparin 40 MG/0.4 ML Syringe SC (06:28)
[2018-11-20] MEDS: Escitalopram Oxalate 10 MG Tablet PO (06:28)
[2018-11-20] MEDS: Nystatin Powder 15gm Bottle 1 APPLIC TOPICAL ×3 (06:28→22:02)
[2018-11-20] MEDS: Menthol/Lanolin/Calamine/Znox 113 GM Tube 1 APPLIC TOPICAL ×2 (06:28→17:50)
[2018-11-20] MEDS: Polyethylene Glycol 3350 17 GM PACKET PO (06:28)
[2018-11-20] MEDS: Senna/Docusate Sodium 1 Tablet PO ×2 (06:28→17:51)
[2018-11-20 06:36] LABS: Bedside Glucose 167 mg/dL (70-110)
[2018-11-20] MEDS: Glucerna Shake 120 ML LIQUID PO ×3 (07:39→17:50)
[2018-11-20] MEDS: Aspirin E.C. 81 MG Tablet PO (07:40)
[2018-11-20] MEDS: metFORMIN HCl 1,000 MG Tablet 1000 MG PO ×2 (07:40→17:50)
--- NOTE | 2018-11-20 13:53 | NURSING ---
DC med scripts sent with & daughter today.
--- NOTE | 2018-11-20 14:02 | CASEMGMT ---
Social Work Resident family letting this social work professor know that a wheelchair is now needed for resident and is requesting for wheelchair to be [place] [facility] [place]. This social work professor to fax order to [facility] when obtained. Proposed discharge date: 11/25/18 PLAN: Discharge to home with spouse and home health care. Jamie CHIN, CHUN
--- NOTE | 2018-11-20 16:56 | CASEMGMT ---
Social Work Faxed order for wheelchair to [facility] [place]. Proposed discharge date: 11/25/18 PLAN: Discharge to home with spouse and home health care. Jmaie CHIN, CHUN
[2018-11-20] MEDS: Atorvastatin Calcium 80 MG Tablet PO (22:02)
[2018-11-20 22:05] VITALS: PULSE 106; RESP 16; O2SAT 96
[2018-11-21 02:10] VITALS: PULSE 103; RESP 18; O2SAT 96
[2018-11-21] MEDS: Escitalopram Oxalate 10 MG Tablet PO (05:38)
[2018-11-21] MEDS: Lisinopril 40 MG Tablet PO (05:38)
[2018-11-21] MEDS: Polyethylene Glycol 3350 17 GM PACKET PO (05:38)
[2018-11-21] MEDS: Senna/Docusate Sodium 1 Tablet PO ×2 (05:38→17:40)
[2018-11-21] MEDS: Enoxaparin 40 MG/0.4 ML Syringe SC (05:38)
[2018-11-21] MEDS: Menthol/Lanolin/Calamine/Znox 113 GM Tube 1 APPLIC TOPICAL ×2 (05:39→15:49)
[2018-11-21] MEDS: Nystatin Powder 15gm Bottle 1 APPLIC TOPICAL ×3 (05:39→20:39)
[2018-11-21 06:41] LABS: Bedside Glucose 193 mg/dL (70-110)
--- NOTE | 2018-11-21 06:42 | NURSING ---
Pt complaint of Rt upper calf pain that comes more in the evening. COMPUTATIONAL CHEMIST noted increased weakness in the evenings with transfers. No redness noted. Increased non-pitting edema noted to ankle. Will update Dr. Foster.
[2018-11-21] MEDS: metFORMIN HCl 1,000 MG Tablet 1000 MG PO ×2 (08:19→17:40)
[2018-11-21] MEDS: Aspirin E.C. 81 MG Tablet PO (08:19)
--- NOTE | 2018-11-21 10:44 | VDLE_ITS ---
Reason For Study: pain RIGHT LEFT GSV is normal. GSV is normal. CFV is compressible, spontaneous, phasic, CFV is compressible, spontaneous, phasic, competent and demonstrates normal competent, and demonstrates normal augmentation. augmentation. POP V is compressible, spontaneous, phasic, FV is compressible, spontaneous, phasic, competent and demonstrates normal competent and demonstrates normal augmentation. augmentation. T/P Trunk is compressible. POP V is compressible, spontaneous, phasic, PTV is compressible. competent and demonstrates normal RT PerV is compressible. augmentation. Prox and Mid FV are compressible. Short T/P Trunk is compressible. segment of the Distal FV is dilated and PTV is compressible. noncompressible. LT PerV is compressible. Gastroc V is noncompressible. Procedure Exam performed portable in patient room. The exam was diagnostic. A preliminary report was called and/or faxed to the pt's RN. Interpretation Summary Acute deep vein thrombosis is noted in the right distal femoral vein and the right gastrocnemius vein. The remainder of the right lower extremity deep venous system is patent and compressible. Deep veins of the left lower extremity are patent and compressible segmentally. There is no evidence of left lower extremity deep vein thrombosis. Valvular competence appears intact within the proximal deep venous systems bilaterally. The greater saphenous veins appear bilaterally patent and compressible segmentally. Ordering Physician: Miguel Foster Performed By: Humberto Grant RVT
[2018-11-21] MEDS: Glucerna Shake 120 ML LIQUID PO ×2 (11:05→17:42)
--- NOTE | 2018-11-21 13:44 | CASEMGMT ---
Social Work Spoke with resident/resident spouse. Resident spouse reporting to have decided to be unable to have resident return to home and is requesting for referral to be made to [facility] for further skilled services. Team is agreeing with resident spouse as resident has been fluctuating between 1-2 assist and resident spouse is only able to provide 1 assist. Emotional and verbal support provided. Telephone call to [facility] Indigo VILLASENOR. This social services technician [facility]ing referral[facility]. Clinical information faxed. Pending approval. Transfer form initiated. Proposed discharge date: 11/25/18 PLAN: Discharge to [facility]. Jamie CHIN, CHUN
[2018-11-21 16:00] VITALS: BP 111/72; PULSE 101; RESP 18; TEMP 36.1; O2SAT 93
--- NOTE | 2018-11-21 16:53 | CASEMGMT ---
Social Work Telephone call from Alexandra Gutierrez. Hanna reporting to be able to accept resident on 11/25/18 under skilled services. Will fax discharge information and PASRR when obtained. Telephone call to [facility]. Transportation set up for 11/25/18 at 1:00pm. Transportation from [facility] and placed with resident discharge information. Resident and resident spouse agreeable to all discharge planning. Proposed discharge date: 11/25/18 PLAN: Discharge to [facility] under skilled services. Jamie Torres MSW, CHUN
--- NOTE | 2018-11-21 18:37 | NURSING ---
Pt + for DVTs, Dr. Foster aware, talked with pt, new orders in
--- NOTE | 2018-11-21 20:20 | PCM.TXEXTCAR ---
- Diet 10/01/18 16:22 Diet: Cardiac/Low Cholesterol Food consistency:: Mechanical Soft/Ground Liquid Consistency:: Regular/Thin Dietary Modifications:: Mechanical Soft Diet Pureed Diet Diet Comments: PUREED MEAT-carb controlled-1:1 supvise/verbal cues-check R cheek pocketing - Routine Orders/Code Status Suppository Type: Dulcolax 10mg Suppository Frequency: Daily PRN Routine Lab Work: CBC, BMP Code Status: DNRCC-A - Wound(s) Superior Right knee Wound Type: reddend from TEDS Above Left Eye Wound Type: Abrasion - Therapies Weight Bearing: Weight bearing as tolerated Extremity Affected:: Bilateral Lower Physical Therapy: Eval and Treat Occupational Therapy: Eval and Treat Speech Therapy: Eval and Treat - Problem/Diagnosis (1) Right hemiparesis Status: Chronic Current Visit: Yes (2) Dysphagia Status: Acute Current Visit: Yes (3) Left acute arterial ischemic stroke, MCA (middle cerebral artery) Status: Acute Current Visit: No (4) HTN (hypertension) Status: Chronic Current Visit: No (5) HLD (hyperlipidemia) Status: Chronic Current Visit: No (6) Diabetes mellitus, type II Status: Acute Current Visit: No (7) Obesity (BMI 30.0-34.9) Status: Chronic Current Visit: No - Allergies/Procedures Done in Hospital Allergies/Adverse Reactions: Allergies hornet venom Allergy (Verified 09/08/18 18:16) Unknown - Type of Care/Length of Stay Estimated LOS: More Than 30 Days Type of Care Needed: Skilled Rehab Potential: Good Prognosis: Good - Additional Orders/Day of Discharge Day of Discharge: 11/25/18 - Dietary and Speech Recommendations Dietitian Recommendations/Changes: Rec continue current diet as ordered w/ ONS medpass. Please recheck current wt for accuracy. - Follow Up Care Primary Care Physician: Miguel Foster Chi, MD [COURTESY STAFF PHYSICIAN] - Please follow up with your Primary Care Physician in: After discharge from [facility]. Please Follow Up With: Dr Foster Please Follow Up With: Endy Ospina MD When: [phone] Please Follow Up With: Bry Aldrich MD (cancelled per request) When: [facility]
[2018-11-21] MEDS: Atorvastatin Calcium 80 MG Tablet PO (20:40)
[2018-11-22] MEDS: Menthol/Lanolin/Calamine/Znox 113 GM Tube 1 APPLIC TOPICAL ×2 (06:17→18:14)
[2018-11-22] MEDS: Senna/Docusate Sodium 1 Tablet PO ×2 (06:18→18:07)
[2018-11-22] MEDS: Lisinopril 40 MG Tablet PO (06:18)
[2018-11-22] MEDS: Escitalopram Oxalate 10 MG Tablet PO (06:18)
[2018-11-22] MEDS: Nystatin Powder 15gm Bottle 1 APPLIC TOPICAL ×3 (06:18→20:05)
[2018-11-22] MEDS: Polyethylene Glycol 3350 17 GM PACKET PO (06:19)
[2018-11-22 06:26] LABS: Bedside Glucose 172 mg/dL (70-110)
[2018-11-22] MEDS: Glucerna Shake 120 ML LIQUID PO ×2 (07:53→18:06)
[2018-11-22] MEDS: Aspirin E.C. 81 MG Tablet PO (07:54)
[2018-11-22] MEDS: Rivaroxaban 15 MG Tablet PO ×2 (07:54→18:07)
[2018-11-22] MEDS: metFORMIN HCl 1,000 MG Tablet 1000 MG PO ×2 (07:54→18:07)
[2018-11-22 16:00] VITALS: BP 99/57; PULSE 91; RESP 16; TEMP 35.9; O2SAT 95
--- NOTE | 2018-11-22 17:07 | PCA ---
Cancelled transport with [facility] for Saturdays discharge. Family will be transporting.
[2018-11-22 18:16] VITALS: BP 135/73; PULSE 99
[2018-11-22 20:00] VITALS: PULSE 100; RESP 18; O2SAT 93
[2018-11-22] MEDS: Atorvastatin Calcium 80 MG Tablet PO (20:04)
[2018-11-23] MEDS: Nystatin Powder 15gm Bottle 1 APPLIC TOPICAL ×3 (05:47→20:46)
[2018-11-23] MEDS: Menthol/Lanolin/Calamine/Znox 113 GM Tube 1 APPLIC TOPICAL ×3 (05:47→20:46)
[2018-11-23] MEDS: Senna/Docusate Sodium 1 Tablet PO ×2 (05:48→17:36)
[2018-11-23] MEDS: Escitalopram Oxalate 10 MG Tablet PO (05:48)
[2018-11-23] MEDS: Polyethylene Glycol 3350 17 GM PACKET PO (05:48)
[2018-11-23] MEDS: Lisinopril 40 MG Tablet PO (05:48)
[2018-11-23 06:46] LABS: Bedside Glucose 171 mg/dL (70-110)
[2018-11-23] MEDS: metFORMIN HCl 1,000 MG Tablet 1000 MG PO ×2 (08:59→17:31)
[2018-11-23] MEDS: Aspirin E.C. 81 MG Tablet PO (08:59)
[2018-11-23] MEDS: Rivaroxaban 15 MG Tablet PO ×2 (09:00→17:31)
[2018-11-23 10:00] VITALS: PULSE 104; RESP 18; O2SAT 93
--- NOTE | 2018-11-23 13:51 | CASEMGMT ---
Social Work SW spoke with Alxeandra Gallardo at [facility] and they are able to accept pt on 11/25/18. SW spoke with pt and daughter and they plan to transport pt to facility on Tuesday. Previously arranged transportation cancelled. Orders faxed to [facility]. PASSRR completed. No further SW needs. Plan: D/C Tuesday11/25/18 to [facility]. RAYMOND Rojas
--- NOTE | 2018-11-23 13:52 | MDS.RN ---
Pain interview for estrella 10/28/18 completed.
[2018-11-23 15:11] VITALS: BP 109/74; PULSE 112; RESP 20; TEMP 36.3; O2SAT 91
[2018-11-23] MEDS: Atorvastatin Calcium 80 MG Tablet PO (20:47)
[2018-11-24] MEDS: Nystatin Powder 15gm Bottle 1 APPLIC TOPICAL ×3 (05:32→19:53)
[2018-11-24] MEDS: Polyethylene Glycol 3350 17 GM PACKET PO (05:34)
[2018-11-24] MEDS: Senna/Docusate Sodium 1 Tablet PO ×2 (05:34→17:48)
[2018-11-24] MEDS: Lisinopril 40 MG Tablet PO (05:34)
[2018-11-24] MEDS: Escitalopram Oxalate 10 MG Tablet PO (05:34)
[2018-11-24 06:51] LABS: Bedside Glucose 182 mg/dL (70-110)
[2018-11-24] MEDS: Rivaroxaban 15 MG Tablet PO ×2 (08:07→17:47)
[2018-11-24] MEDS: Aspirin E.C. 81 MG Tablet PO (08:07)
[2018-11-24] MEDS: Glucerna Shake 120 ML LIQUID PO ×3 (08:07→17:50)
[2018-11-24] MEDS: metFORMIN HCl 1,000 MG Tablet 1000 MG PO ×2 (08:07→17:47)
--- NOTE | 2018-11-24 11:39 | CASEMGMT ---
Addendum entered by Damari Chávez 11/24/18 15:43: Reviewed SW student documentation. VICKIE Hobson Original Note: Brief interview for mental status (BIMS) and mood (PHQ-9) completed on this day. BIMS score . PHQ-9 score 11/01. Junaid Kyle social work student
[2018-11-24 15:00] VITALS: PULSE 112; RESP 18; O2SAT 94
[2018-11-24 16:00] VITALS: BP 103/64; PULSE 101; RESP 18; TEMP 36.5; O2SAT 92
[2018-11-24] MEDS: Menthol/Lanolin/Calamine/Znox 113 GM Tube 1 APPLIC TOPICAL (17:48)
[2018-11-24] MEDS: Atorvastatin Calcium 80 MG Tablet PO (19:50)
[2018-11-25] MEDS: Lisinopril 40 MG Tablet PO (06:34)
[2018-11-25] MEDS: Polyethylene Glycol 3350 17 GM PACKET PO (06:34)
[2018-11-25 06:35] LABS: Bedside Glucose 186 mg/dL (70-110)
[2018-11-25] MEDS: Nystatin Powder 15gm Bottle 1 APPLIC TOPICAL (06:35)
[2018-11-25] MEDS: Senna/Docusate Sodium 1 Tablet PO (06:35)
[2018-11-25] MEDS: Menthol/Lanolin/Calamine/Znox 113 GM Tube 1 APPLIC TOPICAL (06:35)
[2018-11-25] MEDS: Escitalopram Oxalate 10 MG Tablet PO (06:35)
[2018-11-25 06:42] VITALS: PULSE 102; RESP 18; O2SAT 97
[2018-11-25] MEDS: metFORMIN HCl 1,000 MG Tablet 1000 MG PO (07:49)
[2018-11-25] MEDS: Rivaroxaban 15 MG Tablet PO (07:50)
[2018-11-25] MEDS: Aspirin E.C. 81 MG Tablet PO (07:50)
[2018-11-25] MEDS: Glucerna Shake 120 ML LIQUID PO (07:54)
[2018-11-25 09:00] VITALS: BP 135/71; PULSE 111; RESP 18; TEMP 36.6; O2SAT 93
[2018-11-25 11:10] VITALS: BP 112/67; PULSE 108; RESP 18; TEMP 36.7; O2SAT 94
--- NOTE | 2018-11-25 11:57 | NURSING ---
with many questions again today, answered. Verbalized understanding.
== END 2018-11-25 13:19 | disposition home health service (06) | DRG 56 ==
PROVIDERS: Admitting Provider Family Medicine Geriatric Medicine; Referring Provider Family Medicine Geriatric Medicine; Visit Provider Family Medicine Geriatric Medicine
DX: I69.351 Hemiplegia and hemiparesis following cerebral infarction affecting right dominant side (principal); J69.0 Pneumonitis due to inhalation of food and vomit; N39.0 Urinary tract infection, site not specified; I82.491 Acute embolism and thrombosis of other specified deep vein of right lower extremity; I10 Essential (primary) hypertension; E78.5 Hyperlipidemia, unspecified; E11.9 Type 2 diabetes mellitus without complications; I69.322 Dysarthria following cerebral infarction; I69.398 Other sequelae of cerebral infarction; G47.14 Hypersomnia due to medical condition; B37.9 Candidiasis, unspecified; B35.4 Tinea corporis; F32.9 Major depressive disorder, single episode, unspecified
CPT/HCPCS: 36415; 36569; 71045; 71046; 80048; 81001; 82962; 85025; 87040; 87086; 87088; 87186; 87633; 92507; 92523; 92526; 92610; 93970; 94640; 97032; 97110; 97112; 97116; 97163; 97166; 97530; 97535; 97802; J7030; A4216

== ENCOUNTER 2019-04-05 18:29 | Inpatient (IN) | payer MEDICARE, SELFPAY ==
[2019-04-05 18:30] VITALS: BP 141/83; PULSE 78; RESP 18; TEMP 36.8; O2SAT 94; BMI 26.6
--- NOTE | 2019-04-05 18:47 | RAD_ITS ---
STUDY: X-RAY CHEST REASON FOR EXAM: Male, 68 years old. Shortness of breath. Drooling, vision changes. History of CVA. TECHNIQUE: Single AP portable view of the chest. COMPARISON: January 07, 2019. FINDINGS: There is an improved inspiratory effort. There is no mass or infiltrate. There is resolution left basilar atelectasis seen on the prior study. There is no demonstrated pleural abnormality. Normal size heart. Normal mediastinum and teresita. Normal visualized pulmonary arteries. Normal visualized aortic arch and descending thoracic aorta. The thoracic spine is obscured by the mediastinum. Normal visualized ribs, clavicles, and shoulders. There is no demonstrated abnormality of the visualized soft tissue structures of the upper abdomen. RAD/Chest 1 View IMPRESSION: No acute cardiopulmonary disease. Electronically Signed: Ned Samano DO at 19:19 EDT Tel [phone], Service support ,
--- NOTE | 2019-04-05 18:47 | EKG12_ITS ---
Test Reason : CP Blood Pressure : / mmHG Vent. Rate : 079 BPM Atrial Rate : 079 BPM P-R Int : 196 ms QRS Dur : 094 ms QT Int : 404 ms P-R-T Axes : 047 -40 039 degrees QTc Int : 463 ms Normal sinus rhythm Left axis deviation Abnormal ECG Confirmed by SHAD BECKWITH, BENOIT ([id number]), news video editor FLAKO JACKSON ([id number]) on 04/09/2019 1:15:30 PM Referred By: Confirmed By:BENOIT KULKARNI MD
--- NOTE | 2019-04-05 18:47 | CT_ITS ---
STUDY: CT BRAIN WITHOUT CONTRAST REASON FOR EXAM: Male, 68 years old. Slurred speech. Drooling. Vision changes. Patient appeared normal at 7:00 PM last night. RADIATION DOSAGE (If Supplied By Facility): CTDIvol = ( 44.99 ) mGy, DLP = ( 897.35 ) mGycm TECHNIQUE: Transaxial CT imaging of the brain was performed without administration of intravenous contrast material. Individualized dose optimization techniques were used for this CT. COMPARISON: MRI of the brain, September 14, 2018. CT of the head, September 12, 2018. FINDINGS: Normal soft tissue structures. Normal calvarium. There is mild cerebral atrophy with widening of the extra-axial spaces and ventricular dilatation. There are areas of decreased attenuation within the white matter tracts of the supratentorial brain, consistent with microvascular disease changes. There are low attenuation foci in both kidneys ganglia consistent with lacunar infarct. In the left extends upward into the hernandez radiata. The area of encephalomalacia decreased in size from a diffuse low attenuation seen on the prior exam. Normal brainstem. Normal cerebellum. There is no intracranial hemorrhage. There are no findings of an acute ischemic infarction. Normal visualized paranasal sinuses. CT/Brain/Head without Contrast IMPRESSION: Chronic involutional changes without evidence of acute intracranial or calvarial abnormality. If there is continued concern for acute infarct, MRI is recommended. Electronically Signed: Ned Samano DO at 19:32 EDT Tel [phone], Service support ,
[2019-04-05 18:48] VITALS: O2SAT 98
--- NOTE | 2019-04-05 18:50 | ED.DCSUM_ITS ---
- ER Visit Summary Date of Service: 04/05/19 Chief Complaint: Slurred speech History of Present Illness: The patient is a 68 M presenting with slurred speech. Patient states that the nurse at the nursing facility noticed this around 7 PM last night. He has had drooling, blurry vision, confusion, slurred speech. He denies double vision or visual field cut. Denies new weakness or numbness. He has history of stroke in September 2018. He has had right-sided arm and leg weakness since the stroke. He has been off Xarelto since December 23. states this was initially was supposed to be ordered and when the dose changed from the higher dose to the lower dose it was never ordered at the [place] [facility]. When this was discovered he had lower extremity Dopplers which showed no evidence of DVT and he was not restarted on Xarelto. Physical Examination: Vitals are stable. Patient is afebrile. Alert no acute distress. HEENT exam is unremarkable. Neck is supple. Lungs are clear and equal bilaterally. Heart is regular rate and rhythm. Abdomen is soft nontender nondistended. Extremities are unremarkable. Skin is warm and dry. NIH 8, 3 for right upper extremity weakness, 3 for right lower extremity weakness, 1 for sensation, 1 for dysarthria. Remainder of exam is unremarkable. Emergency Department Course and Treatment: EKG is sinus rhythm rate of 79 with no acute ischemic changes. Chest x-ray shows no acute process. CBC, chemi stries unremarkable. INR 1.1. Troponin is negative. CT head shows chronic involutional changes without evidence of acute intracranial or calvarial abnormality. If there is continued concern for acute infarct, MRI is recommended. Discussed with the hospitalist for admission. Disposition: Admission Impression: Dysarthria This note was generated with Access[employer] dictation software. It may contain incorrect words, spelling, and punctuation that were not noted in review of the chart prior to signing ED Disposition - Plan for ED Patient: Referrals: Care Physician,No Primary [Primary Care Provider] -
[2019-04-05 19:01] VITALS: BMI 26.6
[2019-04-05 19:06] LABS: Absolute Lymphocyte Count 1.92 X10^3/uL (0.83-4.51); Absolute Neutrophil Count 3.2 X10^3/uL (2.0-7.7); Basophil# 0.03 X10^3/uL; Basophil% 0.5 % (0-1); Eosinophil# 0.24 X10^3/uL; Hematocrit 42.9 % (40-54); Hemoglobin 14.2 g/dL (13.0-16.5); Lymphocyte # 1.92 X10^3/ul (4.0); Lymphocyte % 31.6 % (19-41); Mean Corp Hgb Conc 33.1 g/dL (32-36); Mean Corpuscular Hgb 28.4 pg (27.0-32.0); Mean Corpuscular Volume 85.8 fL (80-94); Monocyte# 0.68 X10^3/uL; Monocyte% 11.2 % (0-10); NRBC Flagged by Analyzer 0 % (0-5); Neutrophil # 3.19 X10^3/uL (2.7-7.7); Neutrophil % 52.5 % (47-70); Platelet Count 216 K/mm3 (150-450); RBC Distribution Width CV 14.6 % (11.6-14.6); RBC Distribution Width SD 45.6 fl (35.1-43.9); White Blood Count 6.1 K/mm3 (4.4-11.0)
[2019-04-05 19:09] LABS: International Normalized Ratio 1.1; Prothrombin Time (Protime)PT. 13.6 SECONDS (11.7-14.9)
[2019-04-05 19:10] LABS: Partial Thromboplast Time 30.2 Seconds (24.1-36.2)
[2019-04-05 19:17] VITALS: BP 153/90; PULSE 81; RESP 14; O2SAT 98
[2019-04-05 19:18] LABS: Anion Gap 4 (5-15); BUN 16 mg/dL (7-18); BUN/Creat Ratio 25.3 RATIO (10-20); Calcium,Total 9.1 mg/dL (8.5-10.1); Chloride 103 mmol/L (98-107); Creatinine, Serum 0.63 mg/dL (0.70-1.30); EST Glomerular Filtration Rate 133 mL/min (>60); Est Glom Filt Rate - Afr Amer 161 mL/min (>60); Estimated Creatinine Clearance 71.99 ml/min; Glucose 122 mg/dL (74-106); Potassium 4.1 mmol/L (3.5-5.1); Sodium Level 138 mmol/L (136-145)
--- NOTE | 2019-04-05 19:43 | ED.RN ---
PT FAILED BEDSIDE SWALLOW EVALUATION, FAMILY MEMBER SAID AT THE SKILLED NURSING HE IS NORMAL LIQUIDS SOFT FOOD DIET. NPO AT THIS TIME DUE TO FAILED SWALLOW TEST.
[2019-04-05 20:00] VITALS: BP 155/88; PULSE 85; RESP 18; O2SAT 97
--- NOTE | 2019-04-05 20:38 | HP.PCM_ITS ---
Problem List (1) Diabetes mellitus, type II Status: Chronic (2) Dysphagia Status: Acute (3) Left acute arterial ischemic stroke, MCA (middle cerebral artery) Status: Acute (4) HLD (hyperlipidemia) Status: Chronic Qualifiers: (5) HTN (hypertension) Status: Chronic Qualifiers: (6) Obesity (BMI 30.0-34.9) Status: Chronic (7) Right hemiparesis Status: Chronic History of Present Illness Date of Admission: 04/05/19 Chief Complaint: Cooling, dysphagia and change in his speech The patient is a 68 year old M with history of left MCA stroke in September 2018 was sent from senior living for drooling, blurry vision, confusion and slurred speech. Patient was last well seen about 7 PM on 04/04/2019. Patient has chronic right-sided weakness and mild right facial droop from previous stroke. Denies any new weakness or change in sensation. Patient is not on Xarelto since December 23, confirmed from senior living. In ED, vitals were stable. In ED, EKG shows normal sinus rhythm 79 bpm with LAD. NIH stroke scale noted 11 but mainly from previous stroke. She had CT brain which shows no acute intracranial abnormality. Chest x-ray no acute disease. Patient is further admitted for work-up. Past Medical History Past Medical History (Chronic Problems): Chronic Problems HTN (hypertension) (Chronic) HLD (hyperlipidemia) (Chronic) Diabetes mellitus, type II (Chronic) Obesity (BMI 30.0-34.9) (Chronic) Right hemiparesis (Chronic) Allergies hornet venom Allergy (Verified 09/08/18 18:16) Unknown Home Medications: Ambulatory Orders Medication Instructions Recorded Aspirin [Aspir 81] 81 mg PO DAILY 09/08/18 Multivitamins,Ther W-Minerals 1 tablet PO DAILY@0800 10/01/18 [Multivitamin With Minerals] Atorvastatin Calcium 80 mg PO QHS #30 tab 11/15/18 Escitalopram Oxalate [Lexapro] 10 mg PO DAILY #30 tab 11/15/18 Lisinopril [Zestril] 40 mg PO DAILY #30 tab 11/15/18 metFORMIN HCl [Glucophage] 1,000 mg PO BIDCM #60 tab 11/15/18 Pioglitazone HCl 15 mg PO DAILY 04/05/19 Surgical History: no surgical history, - - Patient denies any surgical history. Psychiatric History: No pertinent psych hx Smoking Status: Never smoker - *Family History Maternal History Items: - - Patient's mother at age 76 with history of cancer. Paternal History Items: - - Patient's father at age 66 with myocardial infarction, current history of diabetes mellitus. Review of Systems Constitutional: Denies: Chills, Fever, Weight Change Eyes: Reports: Vision Change - Blurry vision HEENT: Denies: Head Aches, Sinus Congestion, Sinus Drainage Cardiovascular: Denies: Chest Pain, Palpitations Respiratory: Denies: Cough, Shortness of breath at rest, Sputum production Gastrointestinal: Denies: Abdominal Pain, Nausea, Vomiting Genitourinary: Denies: Dysuria Musculoskeletal: Reports: Joint Pain. Denies: Joint Tenderness Skin: Denies: Rash, Wounds Neurological: Reports: Balance problems, Blurred vision, Focal weakness, Incoordination, - - Right-sided weakness. Right upper extremity including hand contracture. Right leg on plaint. Denies: Numbness, Tingling Psychiatric: Denies: Anxiety, Depression, Homicidal Ideations, Suicidal Ideations Hematologic/ Lymphatic: Denies: Easy Bruising, Easy Bleeding VTE Information - Inpt Only VTE Present on Admission: No VTE Mechan Device Prophylaxis: None VTE Pharm Prophylaxis ordered?: Yes - Physical Exam General: Alert, Oriented x3, Cooperative HEENT: Atraumatic, PERRLA, EOMI, Normocephalic Oral: Dry Mucosa Neck: Supple, No JVD, Negative Carotid Bruits Lungs: Clear to auscultation, No rhonchi, No wheeze, No rales, Diminished Cardiovascular: Regular rate, Regular Rhythm, Normal S1, Normal S2, No murmurs Abdomen: Bowel Sounds Present, Soft, Non Tender, Non-Distended Extremities: No edema, Capillary Refill Less than 3 Seconds Skin: No rashes, No breakdown Musculoskeletal: No Tenderness to Palpation of Joints or Extremities, Arthritic Changes, Muscle Wasting Neurological: Deep Tendon Reflexes 2+/4 and Symmetrical, - - NIH stroke scale 11. Right-sided weakness is old. Right-sided facial droop with minor paralysis is old. Psych/Mental Status: Normal Affect, Appropriate Vital Signs Temp Pulse Resp BP Pulse Ox 98.2 F 85 18 155/88 H 97 04/05/19 18:30 04/05/19 20:00 04/05/19 20:00 04/05/19 20:00 04/05/19 20:00 Oxygen Flow Rate (L/min) 2 Oxygen Delivery Method Nasal Cannula Weight: 186 lb 1.122 oz Body Mass Index (BMI) 26.6 Finger Stick Blood Glucose 126 Laboratory Tests Past 24 Hrs 04/05/19 04/05/19 04/05/19 18:30 18:30 18:30 WBC 6.1 RBC 5.00 Hgb 14.2 Hct 42.9 MCV 85.8 MCH 28.4 MCHC 33.1 RDW Std Deviation 45.6 H RDW Coeff of Nasima 14.6 Plt Count 216 MPV 10.0 Immature Gran % (Auto) 0.200 Neut % (Auto) 52.5 Lymph % (Auto) 31.6 [place] % (Auto) 11.2 H Eos % (Auto) 4.0 Baso % (Auto) 0.5 Absolute Neuts (auto) 3.2 Absolute Lymphs (auto) 1.92 Nucleated RBC % 0 PT 13.6 INR 1.1 APTT 30.2 Sodium 138 Potassium 4.1 Chloride 103 Carbon Dioxide 31.0 Anion Gap 4 L BUN 16 Creatinine 0.63 L Estim Creat Clear Calc 71.99 Est GFR (MDRD) Af Amer 161 Est GFR (MDRD) Non-Af 133 BUN/Creatinine Ratio 25.3 H Glucose 122 H Calcium 9.1 Troponin I < 0.015 Assessment/Plan All Active Problems Left acute arterial ischemic stroke, MCA (middle cerebral artery) (Acute) Dysphagia (Acute) The patient is a 68 year old M with history of left MCA stroke in September 2018 was sent from senior living for drooling, blurry vision, confusion and slurred speech. Patient was last well seen about 7 PM on 04/04/2019. Patient has chronic right-sided weakness and mild right facial droop from previous stroke. Denies any new weakness or change in sensation. Patient is not on Xarelto since December 23, confirmed from senior living. In ED, vitals were stable. In ED, EKG shows normal sinus rhythm 79 bpm with LAD. NIH stroke scale noted 11 but mainly from previous stroke. She had CT brain which shows no acute intracranial abnormality. Chest x-ray no acute disease. Patient is further admitted for work-up. 1. Change in his speech, dysphagia/drooling most probably left-sided CVA with history of left MCA stroke in the past: Patient is being admitted in PCU. Cardiac telemetry. Troponin is negative. Serial NIH SS monitoring. MRI brain ordered. CTA of head and neck ordered. PT/OT/Occupational Therapy ordered. BP and glucose monitoring and treatment as per stroke guidelines. Neurology consult. Currently, BP and glucose is within parameters of acute stroke and does not need any intervention. Continue aspirin 300 mg rectal daily and atorvastatin. Dysphagia screen by nursing staff. 2. Hypertension and dyslipidemia: As mentioned above. Try to maintain systolic blood pressure about 150 and diastolic 80-90 mmHg in first 24 hours. 3. Diabetes mellitus type 2: Accu-Chek every 6 hourly and cover with Humalog sliding scale. 4. Dysphagia probably secondary to stroke: Further input by speech therapist. DVT prophylaxis: Bilateral SCDs. Lovenox 40 mg subcu daily after MRI shows no big stroke or other contraindication. Clinical Impression(s) from Imaging Studies Brain CT 04/05/19 18:47 IMPRESSION: Chronic involutional changes without evidence of acute intracranial or calvarial abnormality. If there is continued concern for acute infarct, MRI is recommended. Electronically Signed: Ned Samano DO at 19:32 EDT Tel [phone], Service support , Chest X-Ray 04/05/19 18:47 IMPRESSION: No acute cardiopulmonary disease. Code Visit Inpatient E&M: 37480 Init Hosp L3
[2019-04-05 21:00] VITALS: BP 145/76; PULSE 89; RESP 16; TEMP 36.6; O2SAT 95
--- NOTE | 2019-04-05 21:08 | MRI_ITS ---
STUDY: MRI BRAIN WITHOUT CONTRAST REASON FOR EXAM: Male, 68 years old. Stroke, chronic right paresthesia TECHNIQUE: Standardized multiplanar fat and water weighted pulse sequences were obtained. COMPARISON: Brain MRI 09/14/2018. FINDINGS: There are punctate foci of restricted diffusion in the right parietal lobe periventricular white matter, right parietal occipital lobe periventricular white matter. There is a questionable punctate focus of restricted diffusion in the left posterior occipital lobe white matter. Again seen is chronic infarct of the left basal ganglia, frontoparietal periventricular white matter and left cerebral peduncle. There is moderate cerebral atrophy with widening of the extra-axial spaces and ventricular dilatation. There are multiple white matter hyperintensities, distributed throughout the deep white matter tracts of the cerebral hemispheres, consistent with moderate chronic white matter ischemic changes. Normal T2* images of the brain without demonstrated susceptibility artifact. There is no demonstrated hemosiderin stain. Chronic bilateral basal ganglia lacunar infarcts. Normal thalami. There is no extra-axial fluid accumulation. Normal flow voids within the major intracranial circulation suggesting patency by spin echo criteria. Normal sella turcica, pituitary gland, infundibular stalk, optic chiasm and hypothalamus. Normal tectal plate and pineal gland. Normal midbrain, toney and medulla. Normal cerebellum. Normal basal cisterns. Normal bilateral temporal bones. Normal bilateral internal auditory canals. No demonstrated orbital abnormality, within the constraints of a routine brain study. Normal visualized paranasal sinuses. Normal calvarium and skull base. Normal visualized soft tissue structures. Normal visualized upper cervical spine. MRI/Brain without Contrast IMPRESSION: 1. Punctate foci of acute infarct in the right parietal lobe periventricular white matter, right parietal-occipital lobe periventricular white matter corresponding to right JACK vascular territory. Questionable focus of acute infarct in the left posterior occipital lobe white matter corresponding to the left BREAKDOWN WORKER vascular territory. 2. Chronic findings described above. Electronically Signed: Munaadan Mcpherson, at 14:25 EDT Tel , Service support ,
--- NOTE | 2019-04-05 21:08 | CT_ITS ---
STUDY: CTA HEAD AND NECK WITH CONTRAST REASON FOR EXAM: Male, 68 years old. TIA. Slurred speech. Drooling. Vision changes. Right hemiparesis. RADIATION DOSAGE (If Supplied By Facility): CTDIvol = ( 19.84 ) mGy, DLP = ( 755.14 ) mGycm TECHNIQUE: CT angiography was performed with a multi-detector CT scanner. Data acquisition was obtained from the skull base through the vertex following intravenous administration of 100ML IV Isovue 370. MIP images were reconstructed from the axial data set. Post-processing of the angiographic images was performed, with multiplanar reformation and 3D reconstruction. Individualized dose optimization techniques were used for this CT. COMPARISON: CT of the head, April 05, 2019. FINDINGS: Normal bilateral petrous carotid arteries. There is calcified plaque formation of the right cavernous carotid artery, with a mild stenosis (less than 50%). There is calcified plaque formation of the left cavernous carotid artery, with a mild stenosis (less than 50%). Normal right A1 segments of the anterior cerebral artery. Normal left A1 segments of the anterior cerebral artery. Normal intact anterior communicating artery (ACOM). Normal bilateral A2 segments of the anterior cerebral arteries. Normal right M1 and M2 segments of the middle cerebral arteries, with a normal M1 bifurcation. Normal left M1 and M2 segments of the middle cerebral arteries, with a normal M1 bifurcation. Normal right posterior communicating artery (PCOM). Normal left posterior communicating artery (PCOM). Normal bilateral vertebral arteries. Normal basilar artery with a normal basilar bifurcation. The visualized bilateral superior cerebellar (SCA) arteries are normal. There are absent or markedly atretic P1 segments of the bilateral posterior cerebral arteries. The P2 and visualized P3 segments of both posterior cerebral arteries are supplied via the patent posterior communicating arteries.. There is no demonstrated aneurysm of the [place]. There is no demonstrated abnormality of the visualized brain. AORTIC ARCH: Minimal atherosclerotic changes of the aortic arch. Normal origins of the brachiocephalic, left common carotid, and left subclavian arteries. RIGHT CAROTID ARTERIES: Normal right common carotid artery (CCA). There is atherosclerotic changes of the carotid bulb without significant stenosis. Normal origin of the right internal carotid (ICA) artery without a hemodynamically significant stenosis. Normal visualized cervical portion of the right internal carotid artery. Normal origin of the right external carotid artery (ECA). LEFT CAROTID ARTERIES: Normal left common carotid artery (CCA). There is atherosclerotic changes of the carotid bulb without significant stenosis. Normal origin of the left internal carotid (ICA) artery without a hemodynamically significant stenosis. Is mild tortuosity of the visualized cervical portion of the left internal carotid artery. Normal origin of the left external carotid artery (ECA). VERTEBRAL ARTERIES: There is enhancement within the bilateral vertebral arteries with a small left vertebral artery, and a dominant right vertebral artery. CT/CTA Head AND Neck W/ Contrast IMPRESSION: 1. Atherosclerotic changes of bilateral carotid bulbs without significant stenosis by NASA criteria. 2. Small left vertebral artery. 3. Absent or markedly atretic A1 segments of the bilateral posterior cerebral arteries. The P2 and P2 segments are supplied via the patent bilateral posterior communicating arteries. 4. Mild atherosclerotic changes of the bilateral cavernous carotids without significant stenosis. 5. No evidence of abnormal vascularity or enhancement within the brain. Electronically Signed: Ned Samano DO at 22:27 EDT Tel [phone], Service support ,
--- NOTE | 2019-04-05 21:08 | ECHOD_ITS ---
Reason For Study: TIA/CVA Procedure This was a 2D Doppler, Color Flow transthoracic echocardiogram. The exam was of poor technical quality due to diminished parasternal window. The study was technically difficult. Exam performed portable in patient room. Left Ventricle Normal LV size. Left ventricular systolic function is normal. The estimated ejection fraction is 65 %. Diastolic function is indeterminate. No regional wall motion abnormalities noted. Right Ventricle Normal RV size. Normal systolic function. Atria Normal left atrium. Normal right atrium. No doppler evidence for ASD. Mitral Valve There is mild mitral annular calcification. Extension of the mitral annular calcification onto the base of the posterior mitral valve leaflet. Mild (1+) mitral valve insufficiency. Tricuspid Valve Normal tricuspid valve. Trivial tricuspid valve insufficiency. Unable to estimate RV systolic pressure/pulmonary artery pressure due to technically difficult study. Aortic Valve Trisinus/trileaflet aortic valve. Mild focal aortic valve calcification. Pulmonic Valve The pulmonic valve is not well visualized. Great Vessels Normal sized aortic root. Pericardium/Pleural No pericardial effusion. Medication Bubble study deferred due to poor image quality. MMode/2D Measurements & Calculations LVIDd: 3.3 cm IVSd: 1.3 cm Ao root diam: 3.6 cm LVIDs: 2.1 cm LVPWd: 1.2 cm RVDd: 3.8 cm FS: 34.3 % LAV(MOD-bp): 35.9 ml LVAd ap4: 29.0 cm2 SV(MOD-sp4): 56.9 ml LAV(MOD-bp) Indexed: 17.9 ml/m2 EDV(MOD-sp4): 86.8 ml LAV(MOD-sp2): 35.8 ml EDV(sp4-el): 90.3 ml LAV(MOD-sp4): 27.6 ml LVAs ap4: 14.8 cm2 ESV(MOD-sp4): 30.0 ml ESV(sp4-el): 31.0 ml EF(MOD-sp4): 65.5 % EF(sp4-el): 65.7 % SV(sp4-el): 59.4 ml LA A4 area: 11.4 cm2 LA dimension(2D): 3.2 cm RA A4 area: 13.2 cm2 Time Measurements MV dec time: 0.23 sec Doppler Measurements & Calculations MV E max avila: 68.8 cm/sec Lat Peak E' Avila: 7.0 cm/sec Med Peak E' Avila: 6.3 cm/sec MV A max avila: 92.9 cm/sec E/E' lat: 9.9 E/E' med: 10.9 MV E/A: 0.74 MV V2 max: 87.8 cm/sec Ao V2 max: 107.9 cm/sec LV V1 max: 81.1 cm/sec MV max P.1 mmHg Ao max P.7 mmHg LV V1 max P.6 mmHg MV V2 mean: 58.6 cm/sec MV mean P.5 mmHg MV V2 VTI: 20.3 cm PA V2 max: 64.6 cm/sec TR max P.1 mmHg MV P1/2t-pr_phl: 126.9 msec Interpretation Summary The study was technically difficult. Left ventricular systolic function is normal. The estimated ejection fraction is 65 %. There is mild mitral annular calcification. Extension of the mitral annular calcification onto the base of the posterior mitral valve leaflet. Mild (1+) mitral valve insufficiency. Trivial tricuspid valve insufficiency. Mild focal aortic valve calcification. Unable to estimate RV systolic pressure/pulmonary artery pressure due to technically difficult study. Diastolic function is indeterminate. Ordering Physician: Binu Hodgson Performed By: Etta Nielsen, ZOHAIB, RVT
[2019-04-05 21:15] VITALS: BMI 26.1; BMI 26.7
[2019-04-05] MEDS: 0.9% Normal Saline 1,000 ML 75 ML IV (22:23)
[2019-04-05] MEDS: Aspirin 300 MG Suppository RECTAL (22:24)
[2019-04-05 22:49] LABS: AST(SGOT) 15 U/L (15-37); Alanine Aminotransfer ALT/SGPT 31 U/L (16-61); Albumin, Serum 3.5 g/dL (3.2-5.0); Alkaline Phosphatase 91 U/L (45-117); Bilirubin, Direct 0.15 mg/dL (0.00-0.30); Globulin 4.3 g/dL (2.2-4.2); Protein, Total 7.8 g/dL (6.4-8.2)
[2019-04-05 23:30] VITALS: O2SAT 94
[2019-04-06] VITALS (12 sets, daily range): BP systolic 110–144; BP diastolic 64–84; PULSE 78–96; RESP 14–18; TEMP 36.6–37.2; O2SAT 92–97; BMI 26.1
[2019-04-06 01:11] LABS: Bedside Glucose 113 mg/dL (70-110)
[2019-04-06 05:26] LABS: Bedside Glucose 102 mg/dL (70-110)
[2019-04-06 07:21] LABS: Cholesterol 95 mg/dL (200); High Density Lipoprotein 40 mg/dL; Triglycerides 56 mg/dL; Very Low Density Lipoprotein 11 mg/dL (5-40)
--- NOTE | 2019-04-06 09:55 | PN_ITS ---
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 Objective: GENERAL: In no acute respiratory distress HEENT: Atraumatic; EYES; Anicteric, Normal Conjunctiva NECK; supple, normal thyroid, RESPIRATORY: Diminished to auscultation CARDIOVASCULAR: Regular S1 S2, GI: soft, non-tender, normoactive bowel sounds, : No Renal angle tenderness; EXTREMITIES: No edema, no clubbing, NEURO: Awake; right-sided hemiparesis SKIN: No Rash PSYCH; Normal affect Vitals/I&O's: Vital Signs Temp Pulse Resp BP Pulse Ox 98.2 F 92 14 144/84 H 96 04/06/19 08:15 04/06/19 08:15 04/06/19 08:15 04/06/19 08:15 04/06/19 08:15 Oxygen Flow Rate (L/min) 2 Oxygen Delivery Method Room Air Weight: 82.5 kg Body Mass Index (BMI) 26.1 Finger Stick Blood Glucose 126 Intake and Output for Last 24 Hours 04/04/19 04/05/19 04/06/19 23:59 23:59 23:59 Intake Total 589 / 589 Balance 589 / 589 Laboratory Results 04/05/19 18:30: WBC 6.1, RBC 5.00, Hgb 14.2, Hct 42.9, MCV 85.8, MCH 28.4, MCHC 33.1, RDW Std Deviation 45.6 H, RDW Coeff of Nasima 14.6, Plt Count 216, MPV 10.0, Immature Gran % (Auto) 0.200, Neut % (Auto) 52.5, Lymph % (Auto) 31.6, [place] % (Auto) 11.2 H, Eos % (Auto) 4.0, Baso % (Auto) 0.5, Absolute Neuts (auto) 3.2, Absolute Lymphs (auto) 1.92, Nucleated RBC % 0 04/05/19 18:30: PT 13.6, INR 1.1, APTT 30.2 04/05/19 18:30: Sodium 138, Potassium 4.1, Chloride 103, Carbon Dioxide 31.0, Anion Gap 4 L, BUN 16, Creatinine 0.63 L, Estim Creat Clear Calc 71.99, Est GFR (MDRD) Af Amer 161, Est GFR (MDRD) Non-Af 133, BUN/Creatinine Ratio 25.3 H, Glucose 122 H, Calcium 9.1, Troponin I < 0.015 04/05/19 18:30: Total Bilirubin 0.40, Direct Bilirubin 0.15, AST 15, ALT 31, Alkaline Phosphatase 91, Total Protein 7.8, Albumin 3.5, Globulin 4.3 H 04/06/19 01:02: POC Glucose 113 H 04/06/19 05:18: POC Glucose 102 04/06/19 06:15: Triglycerides 56, Cholesterol 95, LDL Cholesterol 44, VLDL Cholesterol 11, HDL Cholesterol 40 Current Medications Acetaminophen (Tylenol) 650 mg PO Q4H PRN PRN PRN Reason: Headache/Temp>99.6F Acetaminophen (Tylenol) 650 mg RECTAL Q4H PRN PRN PRN Reason: Headache/Temp>99F Aspirin (Ecotrin) 81 mg PO DAILY@0800 [facility] Last Admin: 04/06/19 07:42 Dose: Not Given Documented by: Aspirin (Aspirin) 300 mg RECTAL DAILY [facility] Last Admin: 04/05/19 22:24 Dose: 300 mg Documented by: Atorvastatin Calcium (Lipitor) 80 mg PO QHS [facility] Last Admin: 04/05/19 22:24 Dose: Not Given Documented by: Dextrose (D50w Syringe) 0 gm IV X1 PRN; Protocol PRN Reason: Hypoglycemia Enoxaparin Sodium (Lovenox) 40 mg SC DAILY [facility] Famotidine (Pepcid) 20 mg PO BID [facility] Last Admin: 04/05/19 22:25 Dose: Not Given Documented by: Glucagon () 1 mg IM .X1 PRN PRN Reason: Hypoglycemia Sodium Chloride () 1,000 mls @ 75 mls/hr IV .[id number] [facility] Last Admin: 04/05/19 22:23 Dose: 75 mls/hr Documented by: Insulin Human Lispro (Humalog Kwikpen (Bkc)) 0 unit SC Q6 [facility]; Protocol Last Admin: 04/06/19 05:33 Dose: Not Given Documented by: Labetalol HCl (Trandate) 10 mg IV Q10M PRN PRN Reason: MAINTAIN BP < 220/120 Stop: 04/06/19 21:09 Lisinopril (Zestril) 20 mg PO DAILY [facility] Multivitamins/Minerals (Multivitamin With Minerals) 1 tablet PO DAILY@0800 [facility] Last Admin: 04/06/19 07:43 Dose: Not Given Documented by: Sodium Chloride () 10 - 40 ml IV UD PRN PRN Reason: SALINE FLUSH Medical Necessity - Tobacco Use Smoking Status: Never smoker Tobacco Use: Non-smoker Assessment/Plan All Active Problems Left acute arterial ischemic stroke, MCA (middle cerebral artery) (Acute) Dysphagia (Acute) Patient is a 68-year-old gentleman with past medical history significant for 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 1. Suspected acute CVA on initial head CT was unremarkable admitted to telemetry bed for subsequent evaluation including MRI. Patient was kept n.p.o. consult placed to speech therapy 2. History of previous left MCA CVA in September 2018 which residual right-sided hemiparesis 3. Hypertension-blood pressure controlled, home medications continued with dose adjustment as needed 4. Dyslipidemia-patient is on statin therapy, continued at home dose 5. Diabetes mellitus type 2 patient is on Accu-Cheks before meals and at bedtime with sliding scale coverage 6. DVT prophylaxis SC Lovenox Active Medications Acetaminophen (Tylenol) 650 mg PO Q4H PRN PRN PRN Reason: Headache/Temp>99.6F Acetaminophen (Tylenol) 650 mg RECTAL Q4H PRN PRN PRN Reason: Headache/Temp>99F Aspirin (Ecotrin) 81 mg PO DAILY@0800 [facility] Last Admin: 04/06/19 10:08 Dose: 81 mg Documented by: Aspirin (Aspirin) 300 mg RECTAL DAILY [facility] Last Admin: 04/05/19 22:24 Dose: 300 mg Documented by: Atorvastatin Calcium (Lipitor) 80 mg PO QHS [facility] Last Admin: 04/05/19 22:24 Dose: Not Given Documented by: Dextrose (D50w Syringe) 0 gm IV X1 PRN; Protocol PRN Reason: Hypoglycemia Enoxaparin Sodium (Lovenox) 40 mg SC DAILY [facility] Last Admin: 04/06/19 10:06 Dose: 40 mg Documented by: Famotidine (Pepcid) 20 mg PO BID [facility] Last Admin: 04/06/19 10:07 Dose: 20 mg Documented by: Glucagon () 1 mg IM .X1 PRN PRN Reason: Hypoglycemia Sodium Chloride () 1,000 mls @ 75 mls/hr IV .[id number] [facility] Last Admin: 04/05/19 22:23 Dose: 75 mls/hr Documented by: Insulin Human Lispro (Humalog Kwikpen (Bkc)) 0 unit SC Q6 [facility]; Protocol Last Admin: 04/06/19 05:33 Dose: Not Given Documented by: Labetalol HCl (Trandate) 10 mg IV Q10M PRN PRN Reason: MAINTAIN BP < 220/120 Stop: 04/06/19 21:09 Lisinopril (Zestril) 20 mg PO DAILY [facility] Last Admin: 04/06/19 10:07 Dose: 20 mg Documented by: Multivitamins/Minerals (Multivitamin With Minerals) 1 tablet PO DAILY@0800 [facility] Last Admin: 04/06/19 10:07 Dose: 1 tablet Documented by: Sodium Chloride () 10 - 40 ml IV UD PRN PRN Reason: SALINE FLUSH Clinical Impression(s) from Imaging Studies Brain CT 04/05/19 18:47 IMPRESSION: Chronic involutional changes without evidence of acute intracranial or calvarial abnormality. If there is continued concern for acute infarct, MRI is recommended. Electronically Signed: Ned Samano DO at 19:32 EDT Tel [phone], Service support , Chest X-Ray 04/05/19 18:47 IMPRESSION: No acute cardiopulmonary disease. Electronically Signed: Ned Samano DO at 19:19 EDT Tel [phone], Service support , Head/Neck CTA 04/05/19 21:08 IMPRESSION: 1. Atherosclerotic changes of bilateral carotid bulbs without significant stenosis by NASA criteria. 2. Small left vertebral artery. 3. Absent or markedly atretic A1 segments of the bilateral posterior cerebral arteries. The P2 and P2 segments are supplied via the patent bilateral posterior communicating arteries. 4. Mild atherosclerotic changes of the bilateral cavernous carotids without significant stenosis. 5. No evidence of abnormal vascularity or enhancement within the brain. Electronically Signed: Ned Samano DO at 22:27 EDT Tel [phone], Service support , Code Visit OBSV E&M: 94214 Subsequent observation care L3
[2019-04-06] MEDS: Enoxaparin 40 MG/0.4 ML Syringe SC (10:06)
[2019-04-06] MEDS: Famotidine 20 MG Tablet PO ×2 (10:07→20:49)
[2019-04-06] MEDS: Lisinopril 20 MG Tablet PO (10:07)
[2019-04-06] MEDS: Multivitamins,Ther W-Minerals Tablet 1 TABLET PO (10:07)
[2019-04-06] MEDS: Aspirin E.C. 81 MG Tablet PO (10:08)
--- NOTE | 2019-04-06 10:33 | CASEMGMT ---
CATHY met with patient's to discuss if the plan is to return to [place] at d/c. Patient was gone getting a test done. She said the plan is to return to [place]. She is not sure if she will be able to transport or not. CATHY will place green sheet on chart if patient is ready over the weekend. Plan: Return to [facility] in [place]. Marci CHIN
--- NOTE | 2019-04-06 11:39 | PCM.CONS.GEN ---
Problem List (1) Speech disturbance Status: Acute (2) Right hemiparesis Status: Chronic Reason for Consult Date of Consultation: 04/06/19 Reason for Consultation: Speech disturbances, confusion History of Present Illness: The patient is a 68 year old M with PMH HTN, HLD, DM, left MCA stroke in September 2018, with residual right-sided weakness, history of right lower extremity DVT in November 2018 was on Xarelto, [facility] resident admitted with slurred speech. History is obtained from patient, as well as medical records and documentation. Per ED documentation he was noted to have slurred speech around 7 PM on 04/04/2019, about 2 days ago. Per documentation he was also found to have confusion. He denies any vision loss or visual deficits. He denies any worsening of the right-sided chronic weakness. Per patient he still feels that his speech is slightly slurred at present than at baseline. Per patient had acute left MCA stroke in September 2018, later was admitted to rehab and transferred to TCU and found to have acute lower extremity DVT in November 2018 was started on Xarelto and then transferred to the [place] [facility] where patient currently is. Per he needs at least 1-2 assistance for ambulating, assistance for all his ADLs, does not drive, he denies any falls, and is essentially wheelchair/bedbound. He is on aspirin and statins. Patient patient denies any new onset of headache, focal motor weakness, new onset sensory loss, visual disturbances, dizziness. CTA head/neck done on admission did not show any hemodynamically significant stenosis or occlusion, but showed absent on markedly atrophic A1 segment of bilateral posterior cerebral arteries. TTE showed EF 65%, normal LA size and no Doppler evidence of ASD. LDL 44. [] Past Medical History Past Medical History (Chronic Problems): Chronic Problems HTN (hypertension) (Chronic) HLD (hyperlipidemia) (Chronic) Diabetes mellitus, type II (Chronic) Obesity (BMI 30.0-34.9) (Chronic) Right hemiparesis (Chronic) Allergies hornet venom Allergy (Verified 09/08/18 18:16) Unknown Home Medications: Ambulatory Orders Medication Instructions Recorded Aspirin [Aspir 81] 81 mg PO DAILY 09/08/18 Multivitamins,Ther W-Minerals 1 tablet PO DAILY@0800 10/01/18 [Multivitamin With Minerals] Atorvastatin Calcium 80 mg PO QHS #30 tab 11/15/18 Escitalopram Oxalate [Lexapro] 10 mg PO DAILY #30 tab 11/15/18 Lisinopril [Zestril] 40 mg PO DAILY #30 tab 11/15/18 metFORMIN HCl [Glucophage] 1,000 mg PO BIDCM #60 tab 11/15/18 Acetaminophen [Acetaminophen Extra 1,000 mg PO Q6H PRN 04/05/19 Strength] Pioglitazone HCl 15 mg PO DAILY 04/05/19 Surgical History: no surgical history, - - Patient denies any surgical history. Psychiatric History: No pertinent psych hx Lives: - - Lives at [facility] Smoking Status: Never smoker Tobacco Use: Non-smoker Alcohol: None Drugs: None - *Family History Maternal History Items: - - Patient's mother at age 76 with history of cancer. Paternal History Items: - - Patient's father at age 66 with myocardial infarction, current history of diabetes mellitus. 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, power 5 x 5 left upper/lower extremity, chronic right upper extremity 1 x 5 power and lower extremity 1 x 5, no sensory loss, no cerebellar signs, no aphasia or dysarthria at present, gait deferred, NIHSS 8 at present but mostly is because of the chronic residual deficits, mRS atleast 4 at baseline Psych/Mental Status: Normal Affect Vital Signs Temp Pulse Resp BP Pulse Ox 98.2 F 92 14 144/84 H 96 04/06/19 08:15 04/06/19 08:15 04/06/19 08:15 04/06/19 08:15 04/06/19 08:15 Oxygen Flow Rate (L/min) 2 Oxygen Delivery Method Room Air Weight: 82.5 kg Body Mass Index (BMI) 26.1 Finger Stick Blood Glucose 126 Intake and Output for Last 24 Hours 04/04/19 04/05/19 04/06/19 23:59 23:59 23:59 Intake Total 589 / 589 Balance 589 / 589 Laboratory Tests Past 24 Hrs 04/05/19 04/05/19 04/05/19 18:30 18:30 18:30 WBC 6.1 RBC 5.00 Hgb 14.2 Hct 42.9 MCV 85.8 MCH 28.4 MCHC 33.1 RDW Std Deviation 45.6 H RDW Coeff of Nasima 14.6 Plt Count 216 MPV 10.0 Immature Gran % (Auto) 0.200 Neut % (Auto) 52.5 Lymph % (Auto) 31.6 [place] % (Auto) 11.2 H Eos % (Auto) 4.0 Baso % (Auto) 0.5 Absolute Neuts (auto) 3.2 Absolute Lymphs (auto) 1.92 Nucleated RBC % 0 PT 13.6 INR 1.1 APTT 30.2 Sodium 138 Potassium 4.1 Chloride 103 Carbon Dioxide 31.0 Anion Gap 4 L BUN 16 Creatinine 0.63 L Estim Creat Clear Calc 71.99 Est GFR (MDRD) Af Amer 161 Est GFR (MDRD) Non-Af 133 BUN/Creatinine Ratio 25.3 H Glucose 122 H Calcium 9.1 Total Bilirubin Direct Bilirubin AST ALT Alkaline Phosphatase Troponin I < 0.015 Total Protein Albumin Globulin Triglycerides Cholesterol LDL Cholesterol VLDL Cholesterol HDL Cholesterol 04/05/19 04/06/19 18:30 06:15 WBC RBC Hgb Hct MCV MCH MCHC RDW Std Deviation RDW Coeff of Nasima Plt Count MPV Immature Gran % (Auto) Neut % (Auto) Lymph % (Auto) [place] % (Auto) Eos % (Auto) Baso % (Auto) Absolute Neuts (auto) Absolute Lymphs (auto) Nucleated RBC % PT INR APTT Sodium Potassium Chloride Carbon Dioxide Anion Gap BUN Creatinine Estim Creat Clear Calc Est GFR (MDRD) Af Amer Est GFR (MDRD) Non-Af BUN/Creatinine Ratio Glucose Calcium Total Bilirubin 0.40 Direct Bilirubin 0.15 AST 15 ALT 31 Alkaline Phosphatase 91 Troponin I Total Protein 7.8 Albumin 3.5 Globulin 4.3 H Triglycerides 56 Cholesterol 95 LDL Cholesterol 44 VLDL Cholesterol 11 HDL Cholesterol 40 POC Glucose 04/06/19 04/06/19 05:18 01:02 POC Glucose 102 113 H Assessment/Plan All Active Problems Left acute arterial ischemic stroke, MCA (middle cerebral artery) (Acute) Dysphagia (Acute) Speech disturbance (Acute) The patient is a 68 year old M with PMH HTN, HLD, DM, left MCA stroke in September 2018, with residual right-sided weakness, history of right lower extremity DVT in November 2018 was on Xarelto, [facility] resident admitted with slurred speech. History is obtained from patient, as well as medical records and documentation. Per ED documentation he was noted to have slurred speech around 7 PM on 04/04/2019, about 2 days ago. Per documentation he was also found to have confusion. He denies any vision loss or visual deficits. He denies any worsening of the right-sided chronic weakness. Per patient he still feels that his speech is slightly slurred at present than at baseline. Per patient had acute left MCA stroke in September 2018, later was admitted to rehab and transferred to TCU and found to have acute lower extremity DVT in November 2018 was started on Xarelto and then transferred to the [place] [facility] where patient currently is. Per he needs at least 1-2 assistance for ambulating, assistance for all his ADLs, does not drive, he denies any falls, and is essentially wheelchair/bedbound. He is on aspirin and statins. Patient patient denies any new onset of headache, focal motor weakness, new onset sensory loss, visual disturbances, dizziness. CTA head/neck done on admission did not show any hemodynamically significant stenosis or occlusion, but showed absent on markedly atrophic A1 segment of bilateral posterior cerebral arteries. TTE showed EF 65%, normal LA size and no Doppler evidence of ASD. LDL 44 Impression Rule out stroke Plan ?MRI brain without contrast- Punctate foci of acute infarct in the right parietal lobe periventricular white matter, right parietal-occipital lobe periventricular white matter corresponding to right JACK vascular territory. Questionable focus of acute infarct in the left posterior occipital lobe white matter corresponding to the left [employer] vascular territory. ?CTA head/neck no hemodynamically significant stenosis or occlusion, but showed absent right markedly atretic A1 segment of bilateral posterior cerebral arteries ?CT head did not show any acute changes on admission ?On aspirin 81 mg daily and Lipitor 80 mg nightly. Start dual antiplatelets with aspirin and Plavix for 3 weeks, then will switch to single antiplatelet with Plavix. Bleeding risk discussed in detail. ?TTE EF 65%, normal LA size and no Doppler evidence of ASD ?LDL 44, HbA1c pending ?30-day event recorder on discharge ?Check UA ?Stroke risk factors discussed and stroke education provided ?PT/OT/ST?GI/DVT prophylaxis ?Fall precautions ?Further medical management per hospitalist team ?Follow-up with neurology as outpatient in4 weeks ?Please call with questions if any ?Thank you for allowing us to participate in patient's care and management This note has been generated using [employer] dictation software. It may contain incorrect words, spellings, and punctuation's that were not noted in the review of the note prior to signing. Code Visit Inpatient E&M: 51318 Init Hosp L3
[2019-04-06] MEDS: 0.9% Normal Saline 1,000 ML 75 ML IV ×2 (12:05→20:47)
[2019-04-06 12:10] LABS: Bedside Glucose 118 mg/dL (70-110)
[2019-04-06 12:45] LABS: Hemoglobin A1c 7.3 % (4.2-6.3)
--- NOTE | 2019-04-06 15:32 | CASEMGMT ---
SW completed a PHQ-9 with patient as he had a Stroke. Patient scored a 7 which indicates mild depression. However, he did say that he has thought he would be better off or hurting himself a couple of times. He does not currently feel this way. SW asked him if he would be ok with CATHY calling [facility] and asking them to please have someone, CATHY or counselor talk with him. He agreed to this. CATHY called Alexandra Gallardo at [facility] and left her voice mail with this information. Marci MCCOLLUM MSW
[2019-04-06] MEDS: Clopidogrel Bisulfate 75 MG Tablet PO (16:18)
[2019-04-06] MEDS: Insulin Lispro 100 UNIT/ML INSULN.PEN SC (17:21)
[2019-04-06 17:31] LABS: Bedside Glucose 179 mg/dL (70-110)
[2019-04-06] MEDS: Atorvastatin Calcium 80 MG Tablet PO (20:49)
[2019-04-06 21:01] LABS: Bedside Glucose 114 mg/dL (70-110)
[2019-04-07] VITALS (7 sets, daily range): BP systolic 109–135; BP diastolic 62–75; PULSE 67–98; RESP 14–16; TEMP 36.8–37.5; O2SAT 94–97; BMI 26.1
[2019-04-07 06:56] LABS: Bedside Glucose 102 mg/dL (70-110)
[2019-04-07] MEDS: Enoxaparin 40 MG/0.4 ML Syringe SC (08:25)
[2019-04-07] MEDS: Aspirin E.C. 81 MG Tablet PO (08:25)
[2019-04-07] MEDS: Multivitamins,Ther W-Minerals Tablet 1 TABLET PO (08:25)
[2019-04-07] MEDS: Famotidine 20 MG Tablet PO (08:26)
[2019-04-07] MEDS: Clopidogrel Bisulfate 75 MG Tablet PO (08:26)
[2019-04-07] MEDS: Lisinopril 20 MG Tablet PO (08:26)
--- NOTE | 2019-04-07 08:56 | PCM.TXEXTCAR ---
- Diet 04/06/19 09:53 Diet: Regular Diet Food consistency:: Mechanical Soft/Ground Liquid Consistency:: Regular/Thin Is pt able to select menu?: Yes Diet Comments: Supervision by staff / famly; seated in chair; meds whole w/ purees - Routine Orders/Code Status Code Status: Full Code - Therapies Physical Therapy: Eval and Treat Occupational Therapy: Eval and Treat Speech Therapy: Eval and Treat - Allergies/Procedures Done in Hospital Allergies/Adverse Reactions: Allergies hornet venom Allergy (Verified 09/08/18 18:16) Unknown - Type of Care/Length of Stay Estimated LOS: Convalescent Care Less Than 30 days Type of Care Needed: Skilled Rehab Potential: Fair Prognosis: Fair - Additional Orders/Day of Discharge Day of Discharge: 04/07/19 - Follow Up Care Primary Care Physician: Care Physician,No Primary [Primary Care Provider] -
--- NOTE | 2019-04-07 09:15 | PCM.DC.SUM ---
Discharge Date and Diagnosis - Problem List Patient Problems: Active and Suspected Problems Speech disturbance (Acute) Date of Admission: 04/05/19 Date of Discharge: 04/07/19 - Primary Discharge Diagnosis Active and Suspected Problems Speech disturbance (Acute) - Secondary Discharge Diagnosis Chronic Problems HTN (hypertension) (Chronic) HLD (hyperlipidemia) (Chronic) Diabetes mellitus, type II (Chronic) Obesity (BMI 30.0-34.9) (Chronic) Right hemiparesis (Chronic) Hospital Course and Treatment Imaging Results: Clinical Impression(s) from Imaging Studies Brain CT 04/05/19 18:47 IMPRESSION: Chronic involutional changes without evidence of acute intracranial or calvarial abnormality. If there is continued concern for acute infarct, MRI is recommended. Electronically Signed: Ned Samano DO at 19:32 EDT Tel [phone], Service support , Chest X-Ray 04/05/19 18:47 IMPRESSION: No acute cardiopulmonary disease. Electronically Signed: Ned Samano DO at 19:19 EDT Tel [phone], Service support , Brain MRI 04/05/19 21:08 IMPRESSION: 1. Punctate foci of acute infarct in the right parietal lobe periventricular white matter, right parietal-occipital lobe periventricular white matter corresponding to right JACK vascular territory. Questionable focus of acute infarct in the left posterior occipital lobe white matter corresponding to the left WELDING MACHINE FEEDER vascular territory. 2. Chronic findings described above. Electronically Signed: Carlota Mcpherson, at 14:25 EDT Tel , Service support , Head/Neck CTA 04/05/19 21:08 IMPRESSION: 1. Atherosclerotic changes of bilateral carotid bulbs without significant stenosis by NASA criteria. 2. Small left vertebral artery. 3. Absent or markedly atretic A1 segments of the bilateral posterior cerebral arteries. The P2 and P2 segments are supplied via the patent bilateral posterior communicating arteries. 4. Mild atherosclerotic changes of the bilateral cavernous carotids without significant stenosis. 5. No evidence of abnormal vascularity or enhancement within the brain. 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 1. Suspected acute CVA on initial head CT was unremarkable admitted to telemetry bed for subsequent evaluation including MRI. Patient was kept n.p.o. consult placed to speech therapy patient's MRI demonstrated Punctate foci of acute infarct in the right parietal lobe periventricular white matter, right parietal-occipital lobe periventricular white matter corresponding to right JACK vascular territory. Questionable focus of acute infarct in the left posterior occipital lobe white matter corresponding to the left WELDING MACHINE FEEDER vascular territory. Patient was subsequently seen in consultation by Dr. Burton with neurology who recommended addition of Plavix to patient's therapy. Patient was discharged back to his ECF with addition of Plavix to his antiplatelet therapy 2. History of previous left MCA CVA in September 2018 which residual right-sided hemiparesis 3. Hypertension-blood pressure controlled, home medications continued with dose adjustment as needed 4. Dyslipidemia-patient is on statin therapy, continued at home dose 5. Diabetes mellitus type 2 patient is on Accu-Cheks before meals and at bedtime with sliding scale coverage 6. DVT prophylaxis SC Lovenox Patient Problems: Active and Suspected Problems Speech disturbance (Acute) Objective: GENERAL: In no acute respiratory distress HEENT: Atraumatic; EYES; Anicteric, Normal Conjunctiva NECK; supple, normal thyroid, RESPIRATORY: Diminished to auscultation CARDIOVASCULAR: Regular S1 S2, GI: soft, non-tender, normoactive bowel sounds, : No Renal angle tenderness; EXTREMITIES: No edema, no clubbing, NEURO: Awake; right-sided hemiparesis SKIN: No Rash PSYCH; Normal affect - Physical Exam Vital Signs Temp Pulse Resp BP Pulse Ox 98.3 F 77 14 135/75 H 94 04/07/19 08:22 04/07/19 08:22 04/07/19 08:22 04/07/19 08:22 04/07/19 08:22 Oxygen Flow Rate (L/min) 2 Oxygen Delivery Method Room Air Weight: 82.5 kg Body Mass Index (BMI) 26.1 Finger Stick Blood Glucose 126 Intake and Output for Last 24 Hours 04/05/19 04/06/19 04/07/19 23:59 23:59 23:59 Intake Total 1630 / 2201 1269 / 1269 Balance 1630 / 2201 1269 / 1269 Laboratory Tests Past 24 Hrs 04/06/19 11:58 Hemoglobin A1c 7.3 H POC Glucose 04/07/19 04/06/19 04/06/19 06:50 20:46 17:17 POC Glucose 102 114 H 179 H 04/06/19 12:08 POC Glucose 118 H Discharge Diet: 1800 Calorie Control Diet Discharge Activity: Return to Normal Activity Home Medications: Medications to take at Discharge Aspirin [Aspir 81] 81 mg PO DAILY 09/08/18 Multivitamins,Ther W-Minerals [Multivitamin With Minerals] 1 tablet PO DAILY@0800 10/01/18 Atorvastatin Calcium 80 mg PO QHS #30 tab 11/15/18 Escitalopram Oxalate [Lexapro] 10 mg PO DAILY #30 tab 11/15/18 Lisinopril [Zestril] 40 mg PO DAILY #30 tab 11/15/18 metFORMIN HCl [Glucophage] 1,000 mg PO BIDCM #60 tab 11/15/18 Acetaminophen [Acetaminophen Extra Strength] 1,000 mg PO Q6H PRN 04/05/19 Pioglitazone HCl 15 mg PO DAILY 04/05/19 Clopidogrel Bisulfate [Plavix] 75 mg PO DAILY tab 04/07/19 Primary Care Physician: Care Physician,No Primary [Primary Care Provider] - Disposition: [facility] facility Minutes spent on discharge:: 35 Patient Condition:: Stable Medical Necessity - Tobacco Use Smoking Status: Never smoker Tobacco Use: Non-smoker Meaningful Use Info Meaningful Use Diagnoses (Choose all that apply): Ischemic CVA - CVA Therapy Assessed for PT,OT and/or ST?: Yes - Ischemic Stroke Antithrombotic order at d/c?: Yes Reason antithrombotic not ordered: Drug Intolerance Dx of Atrial fib/flutter?: No Statins at discharge?: Yes Primary Dx Acute Ischemic CVA?: Yes IV tPA ordered during stay?: No Reason IV t-PA not ordered: Treatment not Indicated Code Visit Inpatient E&M: 37282 Disch Hosp
--- NOTE | 2019-04-07 09:54 | NURSING ---
report called to Iris STEVENS at [facility].
== END 2019-04-07 11:35 | disposition skilled nursing facility (03) | DRG 65 ==
LOC: ED 19:04 → PCU 20:16
PROVIDERS: Psychiatry & Neurology Neurology; Admitting Provider Internal Medicine; Emergency Provider Emergency Medicine; Visit Provider Internal Medicine
DX: I63.519 Cerebral infarction due to unspecified occlusion or stenosis of unspecified middle cerebral artery (principal); I69.351 Hemiplegia and hemiparesis following cerebral infarction affecting right dominant side; R47.02 Dysphasia; R13.10 Dysphagia, unspecified; I69.392 Facial weakness following cerebral infarction; H53.8 Other visual disturbances; R47.81 Slurred speech; R40.2430 Glasgow coma scale score 3-8, unspecified time; R47.1 Dysarthria and anarthria; E11.9 Type 2 diabetes mellitus without complications; E78.5 Hyperlipidemia, unspecified; I10 Essential (primary) hypertension; E66.9 Obesity, unspecified; Z79.82 Long term (current) use of aspirin; Z79.84 Long term (current) use of oral hypoglycemic drugs; Z79.899 Other long term (current) drug therapy; Z68.26 Body mass index [BMI] 26.0-26.9, adult; Z86.718 Personal history of other venous thrombosis and embolism
CPT/HCPCS: 36415; 70450; 70496; 70498; 70551; 71045; 80048; 80061; 80076; 82962; 83036; 84484; 85025; 85610; 85730; 92610; 93005; 93306; 94762; 97163; 97166; 99285; J7030; Q9967; A4216

== ENCOUNTER → 2019-05-14 | Outpatient (CLI) | payer MEDICARE, SELFPAY ==
[2019-04-07 09:44] VITALS: BMI 26.1
[2019-05-14 11:59] LABS: Absolute Lymphocyte Count 1.31 X10^3/uL (0.83-4.51); Absolute Neutrophil Count 3.8 X10^3/uL (2.0-7.7); Basophil# 0.02 X10^3/uL; Basophil% 0.3 % (0-1); Eosinophil# 0.16 X10^3/uL; Eosinophils% 2.8 % (0-5); Hematocrit 43.1 % (40-54); Hemoglobin 14.2 g/dL (13.0-16.5); Lymphocyte # 1.31 X10^3/ul (4.0); Lymphocyte % 22.6 % (19-41); Mean Corp Hgb Conc 32.9 g/dL (32-36); Mean Corpuscular Hgb 28.2 pg (27.0-32.0); Mean Corpuscular Volume 85.5 fL (80-94); Mean Platelet Vol. 9.8 fl (6.2-12.0); Monocyte# 0.54 X10^3/uL; Monocyte% 9.3 % (0-10); NRBC Flagged by Analyzer 0 % (0-5); Neutrophil # 3.76 X10^3/uL (2.7-7.7); Neutrophil % 64.8 % (47-70); Platelet Count 211 K/mm3 (150-450); RBC Distribution Width CV 14.6 % (11.6-14.6); RBC Distribution Width SD 45.1 fl (35.1-43.9); Red Blood Count 5.04 M/mm3 (4.6-6.2); White Blood Count 5.8 K/mm3 (4.4-11.0)
[2019-05-14 12:23] LABS: ALB/GLOB Ratio 0.8 RATIO (0.9-2.4); AST(SGOT) 20 U/L (15-37); Alanine Aminotransfer ALT/SGPT 35 U/L (16-61); Albumin, Serum 3.5 g/dL (3.2-5.0); Alkaline Phosphatase 89 U/L (45-117); Anion Gap 9 (5-15); BUN 15 mg/dL (7-18); BUN/Creat Ratio 22.7 RATIO (10-20); Calcium,Total 8.9 mg/dL (8.5-10.1); Chloride 106 mmol/L (98-107); Creatinine, Serum 0.66 mg/dL (0.70-1.30); EST Glomerular Filtration Rate 127 mL/min (>60); Est Glom Filt Rate - Afr Amer 153 mL/min (>60); Globulin 4.3 g/dL (2.2-4.2); Glucose 145 mg/dL (74-106); PSA,Total - Annual Screen 0.92 ng/mL (0.00-4.00); Potassium 4.3 mmol/L (3.5-5.1); Protein, Total 7.8 g/dL (6.4-8.2); Sodium Level 143 mmol/L (136-145); Thyroid Stim Hormone (TSH) 2.02 uIU/mL (0.358-3.74)
[2019-05-14 13:00] LABS: Hepatitis C Antibody Non-Reactive (Nonreactive)
== END | disposition home or self-care (01) ==
LOC: POLAB3 10:44
PROVIDERS: Visit Provider Family Medicine Geriatric Medicine
DX: E11.9 Type 2 diabetes mellitus without complications (principal); I10 Essential (primary) hypertension; Z12.5 Encounter for screening for malignant neoplasm of prostate
CPT/HCPCS: 36415; 80053; 84153; 84443; 85025; 86803; G0103

== ENCOUNTER → 2019-08-17 10:29 | Outpatient (CLI) | payer MEDICARE, SELFPAY ==
[2019-04-07 09:44] VITALS: BMI 26.1
[2019-08-17 12:38] LABS: Absolute Neutrophil Count 3.2 X10^3/uL (2.0-7.7); Basophil# 0.03 X10^3/uL; Basophil% 0.5 % (0-1); Eosinophil# 0.28 X10^3/uL; Hematocrit 41.9 % (40-54); Hemoglobin 13.8 g/dL (13.0-16.5); Lymphocyte % 28.4 % (19-41); Mean Corp Hgb Conc 32.9 g/dL (32-36); Mean Corpuscular Hgb 28.4 pg (27.0-32.0); Mean Corpuscular Volume 86.2 fL (80-94); Mean Platelet Vol. 10.5 fl (6.2-12.0); Monocyte% 8.9 % (0-10); NRBC Flagged by Analyzer 0 % (0-5); Neutrophil # 3.22 X10^3/uL (2.7-7.7); Platelet Count 218 K/mm3 (150-450); RBC Distribution Width CV 14.9 % (11.6-14.6); RBC Distribution Width SD 47.7 fl (35.1-43.9); Red Blood Count 4.86 M/mm3 (4.6-6.2); White Blood Count 5.6 K/mm3 (4.4-11.0)
[2019-08-17 12:53] LABS: Vitamin D,25 Hydroxy 23.1 ng/mL (29.95-100.01)
[2019-08-17 13:28] LABS: ALB/GLOB Ratio 0.9 RATIO (0.9-2.4); AST(SGOT) 17 U/L (15-37); Alanine Aminotransfer ALT/SGPT 30 U/L (16-61); Albumin, Serum 3.7 g/dL (3.2-5.0); Alkaline Phosphatase 79 U/L (45-117); Anion Gap 6 (5-15); BUN 20 mg/dL (7-18); BUN/Creat Ratio 25.7 RATIO (10-20); Calcium,Total 8.6 mg/dL (8.5-10.1); Chloride 103 mmol/L (98-107); Creatinine, Serum 0.78 mg/dL (0.70-1.30); EST Glomerular Filtration Rate 105 mL/min (>60); Est Glom Filt Rate - Afr Amer 127 mL/min (>60); Globulin 4.1 g/dL (2.2-4.2); Glucose 118 mg/dL (74-106); Potassium 3.5 mmol/L (3.5-5.1); Protein, Total 7.8 g/dL (6.4-8.2); Sodium Level 138 mmol/L (136-145); Thyroid Stim Hormone (TSH) 2.87 uIU/mL (0.358-3.74)
== END ==
PROVIDERS: Visit Provider Family Medicine Geriatric Medicine
DX: E11.65 Type 2 diabetes mellitus with hyperglycemia (principal); E55.9 Vitamin D deficiency, unspecified; I10 Essential (primary) hypertension
CPT/HCPCS: 36415; 80053; 82306; 84443; 85025

== ENCOUNTER → 2019-10-01 12:50 | Outpatient (CLI) | payer MEDICARE, SELFPAY ==
[2019-04-07 09:44] VITALS: BMI 26.1
--- NOTE | 2019-10-01 12:57 | RAD_ITS ---
STUDY: SWALLOWING STUDY REASON FOR EXAM: Male, 69 years old. DYSPHAGIA TECHNIQUE: The examination was performed with Speech Pathology in attendance. Under fluoroscopic observation, the patient ingested thin barium, thick barium, barium pudding, and barium coated cracker. FLUOROSCOPY TIME: 2:57 minutes/seconds RADIOLOGIST INVOLVEMENT: Radiologist was present and providing direct supervision. COMPARISON: Comparison is made with prior study dated September 18, 2018. FINDINGS: The following was observed during swallowing of the various mixtures of barium: Thin Barium: Transient penetration and evacuation with ingestion of thin liquids. Thick Barium: There was no evidence of aspiration or laryngeal penetration. Barium Pudding: There was no evidence of aspiration or laryngeal penetration. Barium Coated Cracker: There was no evidence of aspiration or laryngeal penetration. RAD/Swallowing Function w/Video IMPRESSION: Transient penetration with evacuation upon ingestion of thin liquids. The swallow study findings were discussed with the patient by the speech pathologist at the conclusion of the examination. Please see speech pathology report for more information and recommendations. Electronically Signed: Jean Montoya, at 13:58 EST , Service support ,
--- NOTE | 2019-10-01 13:00 | SP.MBSS_ITS ---
PRIMARY / SECONDARY DIAGNOSIS: dysphagia (R13.10) REFERRING PHYSICIAN: Dr. Edel Foster MD CURRENT DIET: regular-soft textures, thin liquids DENTITION: natural upper / lower; majority of upper dentition missing. MENTAL STATUS: sufficient for participation RESPIRATORY STATUS: O2 via room air REASON FOR REFERRAL: The Patient is a 69 year old male referred for a modified barium swallow (MBS) study to objectively assess the Patients oropharyngeal swallow function under fluoroscopy secondary to a prior left middle cerebral artery cerebrovascular accident involving the left basal ganglia involving deep white matter tracts in left frontal parietal region and body of the caudate nucleus extending inferomedially into the left cerebral peduncle resulting in post stroke dysphagia. Both report no change in functioning, rather desire to follow up to ensure continued tolerance. MEDICAL HISTORY: Left middle cerebral artery cerebrovascular accident involving the left basal ganglia involving deep white matter tracts in left frontal parietal region and body of the caudate nucleus extending inferomedially into the left cerebral peduncle, right hemiplegia, hypertension, hyperlipidemia, type II diabetes mellitus, obesity (BMI 30.0-34.9). PREVIOUS MODIFIED BARIUM SWALLOW STUDY: 09/18/2018 MBS revealed mild to moderate oropharyngeal dysphagia (DSRS: 3; SPS: 4) with transient penetration of thin liquids. ADDITIONAL OBJECTIVE ASSESSMENT RESULTS: 04/06/2019 MRI revealed punctate foci of acute infarct in the right parietal lobe periventricular white matter, right parietal-occipital lobe periventricular white matter corresponding to right JACK vascular territory; questionable focus of acute infarct in the left posterior occipital lobe white matter corresponding to the left PHOTO TECH vascular territory. 04/05/2019 CT revealed chronic involutional changes without evidence of acute intracranial or calvarial abnormality; low attenuation foci in both kidneys ganglia consistent with lacunar infarct. 04/05/2019 CT / CTA head / neck revealed no evidence of abnormal vascularity or enhancement within the brain. 09/14/2018 MRI revealed an acute lacunar infarct involving left basal ganglia involving deep white matter tracts in left frontal parietal region and body of the caudate nucleus extending inferomedially into the left cerebral peduncle. ASSESSMENT PARAMETERS: The Patient participated in a Modified Barium Swallow (MBS) study on 10/01/2019. Dr. Montoya was the radiologist present for this evaluation. This study was recorded in the lateral view and images were sent to PACs for storage. Scoring was completed through each trial using the 8-point Penetration-Aspiration Scale (PAS) and summarized via the Videofluoroscopic Dysphagia Scale (VDS) and the Bolus Residue Scale (BRS), with severity scoring through the Dysphagia Severity Rating Scale (DSRS) and the Swallowing Performance Scale (SPS), and recommended diet textures through the International Dysphagia Diet Standardisation Initiative (IDDSI) RESULTS OF THE EVALUATION: The Patient presents with mild to moderate oropharyngeal dysphagia (DSRS: 3; SPS: 4) with transient penetration and complete ejection during trials of thin liquids, secondary to a previous left middle cerebral artery cerebrovascular accident involving the left basal ganglia involving deep white matter tracts in left frontal parietal region and body of the caudate nucleus extending inferomedially into the left cerebral peduncle that appears similar to prior level of functioning during [facility] and [facility] TCU admissions. OBJECTIVE ASSESSMENT OF SWALLOW FUNCTION (QUANTITATIVE ? PER TRIAL): PENETRATION / ASPIRATION SCALE (MALLORY): 1 = does not enter airway 2 = enters airway/above vocal folds/ejected 3 = enters airway/above vocal folds/not ejected 4 = enters airway/contacts vocal folds/ejected 5 = enters airway/contacts vocal folds/not ejected 6 = enters airway/below vocal folds/ejected 7 = enters airway/below vocal folds/not ejected despite effort 8 = enters airway/below vocal folds/no effort PENETRATION / ASPIRATION SCALE (SCORE): Thin liquid - 5 mL tsp.: 1 Thin liquids via cup (single sip): 1 Thin liquids via cup (single sip): 1 Thin liquids via cup (single sip): 2 Thin liquids via straw (single sip): 2 Pudding via spoon: 1 Regular textured cookie: 1 Thin liquids via straw (single sip): 2* Thin liquids via straw (single sip): 2 Thin liquids via straw (single sip): 1 Thin liquids via straw (chin tuck): 1 * denotes inability to consume sequentially OBJECTIVE ASSESSMENT OF SWALLOW FUNCTION (QUANTITATIVE ? AGGREGATE): VIDEOFLOROSCOPIC DYSPHAGIA SCALE (VDS): LIP CLOSURE: 0 (of 4) Intact BOLUS FORMATION: 0 (of 6) Intact MASTICATION: 4 (of 8) Inadequate APRAXIA: 3 (of 4.5) Moderate TONGUE TO PALATE CONTACT: 0 (of 10) Intact PREMATURE BOLUS LOSS: 0 (of 4.5) None ORAL TRANSIT TIME: 3 (of 3) >1.5s TRIGGERING OF PHARYNGEAL SWALLOW: 0 (of 4.5) Normal VALLECULAR RESIDUE: 0 (of 6) None LARYNGEAL ELEVATION: 9 (of 9) Impaired PYRIFORM SINUS RESIDUE: 0 (of 13.5) None COATING OF PHARYNGEAL WALL: 0 (of 9) No PHARYNGEAL TRANSIT TIME: 0 (of 6) <1.0s ASPRIATION: 0 (of 12) None BOLUS RESIDUE SCALE (BRS): 1 (of 6) no residue OBJECTIVE ASSESSMENT OF SWALLOW FUNCTION (SEVERITY GRADING): DYSPHAGIA SEVERITY RATING SCALE (DSRS): 3 (mild-moderate) SWALLOWING PERFORMANCE SCALE (SPS): 4 (mild to moderate) OBJECTIVE ASSESSMENT OF SWALLOW FUNCTION (QUALITATIVE): ORAL PREPARATORY PHASE: mild mastication inefficiency with prolonged mastication; sufficient anterior oral containment during oral manipulation; preserved management of breathing / bolus formation ORAL TRANSITIONAL PHASE: 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 RESPONSE TO STRATEGIES: all deficits managed successfully with reduction in bolus rate / volume adjustments, slight benefit noted with execution of the chin tuck posture INTERVENTION RECOMMENDATIONS AND CONSIDERATIONS: The Patient is presenting with findings very similar in nature to prior workup; if desired, he may benefit from continued speech-language intervention targeting diet texture management and training / implementation of recommended compensatory strategies; Patient education regarding stroke associated dysphagia; and Patient / caregiver training targeting meal preparation, though both the Patient and the Patients appear to comprehend information presented in regards to his dysphagia, and are continuing to implement previously recommended precautions, with both reporting desire to hold further intervention until a need is identified. POST ASSESSMENT EDUCATION: Results and recommendations were discussed with the Patient and Patients family immediately following MBS completion, with the Patient and Patients family DIET TEXTURE RECOMMENDATIONS: Will recommend a regular ? soft textured (IDDSI: 6), thin liquid diet (IDDSI: 0) diet RECOMMENDED COMPENSATORY STRATEGIES: Distant supervision with assistance as needed, consider cutting tougher textures into bite sized pieces, reduced bolus volume / rate of ingestion, liquid chaser at reasonable intervals, seated upright at 90 degrees during PO intake, remain upright for 30-60 minutes post meal (GERD precaution), medications one at a time with a liquid chaser. IMAGE COUNT: [id number] Richy Alberto M.A., CCC-PAN GREASER, CBIS MBSImP Certified, LSVT Certified [facility] Speech-Language Pathology Department [email or web address]
== END ==
PROVIDERS: PCP Family Medicine Geriatric Medicine; Referring Provider Family Medicine Geriatric Medicine; Visit Provider Family Medicine Geriatric Medicine
DX: R13.10 Dysphagia, unspecified (principal)
CPT/HCPCS: 74230; 92611

== ENCOUNTER → 2019-11-23 | Outpatient (CLI) | payer MEDICARE, SELFPAY ==
[2019-04-07 09:44] VITALS: BMI 26.1
[2019-11-23 12:38] LABS: Absolute Lymphocyte Count 1.83 X10^3/uL (0.83-4.51); Absolute Neutrophil Count 3.4 X10^3/uL (2.0-7.7); Basophil# 0.03 X10^3/uL; Basophil% 0.5 % (0-1); Eosinophil# 0.24 X10^3/uL; Hematocrit 44.2 % (40-54); Hemoglobin 14.3 g/dL (13.0-16.5); Lymphocyte # 1.83 X10^3/ul (4.0); Lymphocyte % 30.1 % (19-41); Mean Corp Hgb Conc 32.4 g/dL (32-36); Mean Corpuscular Hgb 28.4 pg (27.0-32.0); Mean Corpuscular Volume 87.7 fL (80-94); Mean Platelet Vol. 10.6 fl (6.2-12.0); Monocyte# 0.52 X10^3/uL; Monocyte% 8.6 % (0-10); NRBC Flagged by Analyzer 0 % (0-5); Neutrophil # 3.44 X10^3/uL (2.7-7.7); Neutrophil % 56.6 % (47-70); Platelet Count 172 K/mm3 (150-450); RBC Distribution Width CV 13.3 % (11.6-14.6); RBC Distribution Width SD 42.1 fl (35.1-43.9); Red Blood Count 5.04 M/mm3 (4.6-6.2); White Blood Count 6.1 K/mm3 (4.4-11.0)
[2019-11-23 13:24] LABS: ALB/GLOB Ratio 0.8 RATIO (0.9-2.4); AST(SGOT) 15 U/L (15-37); Alanine Aminotransfer ALT/SGPT 26 U/L (16-61); Albumin, Serum 3.6 g/dL (3.2-5.0); Alkaline Phosphatase 95 U/L (45-117); Anion Gap 8 (5-15); BUN 19 mg/dL (7-18); BUN/Creat Ratio 25.3 RATIO (10-20); Chloride 103 mmol/L (98-107); Creatinine, Serum 0.75 mg/dL (0.70-1.30); EST Glomerular Filtration Rate 109 mL/min (>60); Est Glom Filt Rate - Afr Amer 132 mL/min (>60); Globulin 4.3 g/dL (2.2-4.2); Glucose 128 mg/dL (74-106); Potassium 3.6 mmol/L (3.5-5.1); Protein, Total 7.9 g/dL (6.4-8.2); Sodium Level 139 mmol/L (136-145); Thyroid Stim Hormone (TSH) 3.24 uIU/mL (0.358-3.74)
== END | disposition home or self-care (01) ==
LOC: POLAB3 11:20
PROVIDERS: PCP Family Medicine Geriatric Medicine; Visit Provider Family Medicine Geriatric Medicine
DX: E11.65 Type 2 diabetes mellitus with hyperglycemia (principal); I10 Essential (primary) hypertension
CPT/HCPCS: 36415; 80053; 84443; 85025

== ENCOUNTER 2020-02-01 17:29 | Inpatient (IN) | payer MEDICARE, SELFPAY ==
[2019-04-07 09:44] VITALS: BMI 26.1
[2020-02-01] VITALS (13 sets, daily range): BP systolic 103–153; BP diastolic 56–75; PULSE 88–111; RESP 21–36; TEMP 36.9–40.7; O2SAT 92–98; BMI 24.8; BMI 24.2
--- NOTE | 2020-02-01 17:33 | EKG12_ITS ---
Test Reason : Blood Pressure : / mmHG Vent. Rate : 102 BPM Atrial Rate : 102 BPM P-R Int : 162 ms QRS Dur : 094 ms QT Int : 322 ms P-R-T Axes : 054 -37 055 degrees QTc Int : 419 ms Sinus tachycardia Left axis deviation Abnormal ECG Confirmed by BILL ANAND ([id number]), graphic editor FLAKO JACKSON ([id number]) on 02/04/2020 11:00:36 AM Referred By: GERMANIA Confirmed By:BILL ANAND
--- NOTE | 2020-02-01 17:43 | ED.VIS.GEN ---
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 Once it was determined that his temperature is 103.0 and his only symptom is the fact that he will not speak and is leaning to the left the stroke alert was canceled. He will follow simple commands. He has residual weakness on the left side from a left ischemic stroke. Unable to obtain any history. Squad states noted 1 hour ago. Prior similar symptoms: No Recent Illness/Hospitalization: No - Past Medical History (1) Dysphagia Status: Acute (2) Left acute arterial ischemic stroke, MCA (middle cerebral artery) Status: Acute (3) Speech disturbance Status: Acute (4) Diabetes mellitus, type II Status: Chronic (5) HLD (hyperlipidemia) Status: Chronic (6) HTN (hypertension) Status: Chronic Past Medical History - Allergies and Home Meds Allergies/Adverse Reactions: Allergies hornet venom Allergy (Verified 02/01/20 17:32) Unknown Primary Care Physician: Miguel Foster Chi, MD [Primary Care Provider] - Prior records reviewed: Yes Surgical History: no surgical history, - - Patient denies any surgical history. Lives: Spouse/ Significant Other Smoking Status: Never smoker Alcohol: None Drugs: None - Family History Maternal Family History: Reports: - - Patient's mother at age 76 with history of cancer. Paternal Family History: Reports: - - Patient's father at age 66 with myocardial infarction, current history of diabetes mellitus. Review of Systems ROS: Unable to Obtain Physical Exam Vital Signs/Narrative: Vital Signs Temp Pulse Resp BP Pulse Ox 02/01/20 17:32 98.5 F 88 30 H 121/67 H 95 Inital Vital Signs reviewed: Yes - Is hot to touch I do not believe the documented temperature of 98.5. General: Well nourished, Well developed. Negative for: Obese, Cachectic, Contractures Head: Normocephalic, Atraumatic Eyes: Perrl, EOMI, Pale conjunctiva. Negative for: Scleral icterus ENT: TM's clear, Dry mucous membranes, Nasal congestion. Negative for: No rhinorrhea Neck: No lymphadenopathy, - - Patient is reluctant to move his neck. Unable to determine if he truly has nuchal rigidity versus resistance because he resists movement of his extremities. Cardiovascular: Regular rate, Regular rhythm, No murmurs, Normal S1, Normal S2 Respiratory: No distress, Rales - Diminished breath sounds with rales on the right, - - Coarse breath sounds noted on the left. There appears to be a scar left anterior chest. Abdomen: Soft, Nontender, Nondistended, No masses, Hypoactive bowel sounds. Negative for: Normal bowel sounds Rectal: Deferred Back: Nontender Extremities: Nontender, No edema Skin: No rash, No Trauma, Pallor. Negative for: Normal color, Cyanosis, Diaphoresis, Jaundice Neurological: - - Patient has a foot drop on the right which apparently is old. There is weakness on the right which is apparently old. There is a Babinski sign noted on the right.. Negative for: Alert, Oriented x3, Normal Strength, Normal Sensation, Normal DTR, Normal Gait Psychological: - - Unable to determine Diagnostic/Tx/Re-eval Chest X-Ray - ED: 1 View, Read by ED Physician - X-ray reveals no acute process. The film is limited because it is rotated. There is slight hyper aeration. There is chronic changes noted in the parenchyma. Cardiac silhouette and size are normal. Mediastinum is normal. Osseous structures are without any acute pathology. This was compared to prior chest x-ray obtained April 05, 2019. Impressions Chest X-Ray 02/01/20 18:20 IMPRESSION: Normal x-ray examination of the chest. Electronically Signed: Luís Stroud MD at 18:53 EDT Tel , Service support , 02/01/20 18:20 Chest 1 View (Portable) [RAD] Stat Laboratory Results 02/01/20 02/01/20 02/01/20 17:33 17:33 17:33 WBC 17.5 H RBC 4.83 Hgb 13.8 Hct 42.2 MCV 87.4 MCH 28.6 MCHC 32.7 RDW Std Deviation 47.8 H RDW Coeff of Nasima 14.8 H Plt Count 122 L MPV 11.0 Immature Gran % (Auto) HOME ECONOMICS EXTENSION WORKER Neut % (Auto) HOME ECONOMICS EXTENSION WORKER Lymph % (Auto) HOME ECONOMICS EXTENSION WORKER Newton % (Auto) HOME ECONOMICS EXTENSION WORKER Eos % (Auto) HOME ECONOMICS EXTENSION WORKER Baso % (Auto) HOME ECONOMICS EXTENSION WORKER Absolute Neuts (auto) 15.4 H Absolute Lymphs (auto) 0.70 L Total Counted 100 Neutrophils % (Manual) 55 Band Neutrophils % 33 H Lymphocytes % (Manual) 4 L Monocytes % (Manual) 6 Metamyelocytes % 2 H Nucleated RBC % 0 Diff Path Review May foll Platelet Estimate SLT DEC RBC Morphology NORM C+C PT 17.4 H INR 1.5 APTT 32.5 Specimen Type Sample Site pH Bicarbonate Actual POC Total CO2 Base Excess O2 Saturation ABG pCO2 ABG pO2 Jim Test O2 Delivery Device Blood Gas Notified Whom Sodium 140 Potassium 4.3 Chloride 105 Carbon Dioxide 24.0 Anion Gap 11 BUN 34 H Creatinine 1.95 H Estim Creat Clear Calc 38.69 Est GFR (MDRD) Af Amer 44 L Est GFR (MDRD) Non-Af 36 L BUN/Creatinine Ratio 17.4 Glucose 252 H Lactic Acid Calcium 9.3 Total Bilirubin 0.80 AST 17 ALT 21 Alkaline Phosphatase 72 Total Protein 7.7 Albumin 3.5 Globulin 4.2 Albumin/Globulin Ratio 0.8 L Urine Color Urine Clarity Urine pH Ur Specific [place] Urine Protein Urine Glucose (UA) Urine Ketones Urine Occult Blood Urine Nitrite Urine Bilirubin Urine Urobilinogen Ur Leukocyte Esterase Urine RBC Urine WBC Ur Squamous Epith Cells Urine Bacteria Urine Mucus Urine Yeast COVID-19 (TAMERA) 02/01/20 02/01/20 02/01/20 17:33 17:39 17:45 WBC RBC Hgb Hct MCV MCH MCHC RDW Std Deviation RDW Coeff of Nasima Plt Count MPV Immature Gran % (Auto) Neut % (Auto) Lymph % (Auto) Newton % (Auto) Eos % (Auto) Baso % (Auto) Absolute Neuts (auto) Absolute Lymphs (auto) Total Counted Neutrophils % (Manual) Band Neutrophils % Lymphocytes % (Manual) Monocytes % (Manual) Metamyelocytes % Nucleated RBC % Diff Path Review Platelet Estimate RBC Morphology PT INR APTT Specimen Type ART Sample Site R RADIAL pH 7.42 Bicarbonate Actual 18.0 L POC Total CO2 19 Base Excess -7 L O2 Saturation 91 L ABG pCO2 27.8 L ABG pO2 58 L Jim Test POS O2 Delivery Device Room Air Blood Gas Notified Whom ED Sodium Potassium Chloride Carbon Dioxide Anion Gap BUN Creatinine Estim Creat Clear Calc Est GFR (MDRD) Af Amer Est GFR (MDRD) Non-Af BUN/Creatinine Ratio Glucose Lactic Acid 6.3 H* Calcium Total Bilirubin AST ALT Alkaline Phosphatase Total Protein Albumin Globulin Albumin/Globulin Ratio Urine Color Urine Clarity Urine pH Ur Specific [place] Urine Protein Urine Glucose (UA) Urine Ketones Urine Occult Blood Urine Nitrite Urine Bilirubin Urine Urobilinogen Ur Leukocyte Esterase Urine RBC Urine WBC Ur Squamous Epith Cells Urine Bacteria Urine Mucus Urine Yeast COVID-19 (TAMERA) Negative 02/01/20 18:20 WBC RBC Hgb Hct MCV MCH MCHC RDW Std Deviation RDW Coeff of Nasima Plt Count MPV Immature Gran % (Auto) Neut % (Auto) Lymph % (Auto) Newton % (Auto) Eos % (Auto) Baso % (Auto) Absolute Neuts (auto) Absolute Lymphs (auto) Total Counted Neutrophils % (Manual) Band Neutrophils % Lymphocytes % (Manual) Monocytes % (Manual) Metamyelocytes % Nucleated RBC % Diff Path Review Platelet Estimate RBC Morphology PT INR APTT Specimen Type Sample Site pH Bicarbonate Actual POC Total CO2 Base Excess O2 Saturation ABG pCO2 ABG pO2 Jim Test O2 Delivery Device Blood Gas Notified Whom Sodium Potassium Chloride Carbon Dioxide Anion Gap BUN Creatinine Estim Creat Clear Calc Est GFR (MDRD) Af Amer Est GFR (MDRD) Non-Af BUN/Creatinine Ratio Glucose Lactic Acid Calcium Total Bilirubin AST ALT Alkaline Phosphatase Total Protein Albumin Globulin Albumin/Globulin Ratio Urine Color Marily Urine Clarity Turbid Urine pH 5.0 Ur Specific [place] 1.020 Urine Protein 500 H Urine Glucose (UA) 50 H Urine Ketones 15 H Urine Occult Blood 250 H Urine Nitrite Positive H Urine Bilirubin 1 H Urine Urobilinogen 1 H Ur Leukocyte Esterase 100 H Urine RBC 50-100 SEEN Urine WBC 0-5 SEEN Ur Squamous Epith Cells 0-5 SEEN Urine Bacteria 1+ Urine Mucus 0 SEEN Urine Yeast RARE COVID-19 (TAMERA) Patient work-up would indicate source of infection is urinary tract infection. He was treated with Rocephin. Since he has a lactate of 6.3 he was given an additional 1.6 L to the initial 1 L he received. This will complete the 30 cc/kg bolus required for septic shock. - Medical Decision Making With reported temperature of 103.0 ?F and the fact the patient feels much warmer than documented TA temperature of 98.5. Will await reading after placement of temperature probe Chun. Differential includes metabolic, infectious etiology. Doubt stroke. - Critical Care Time Critical care time (excluding procedures): 30-74 minutes - Critical care time 36 minutes this includes speaking with EMS, obtaining history by phone, review of prior records, documentation, interpretation of diagnostic tests and x-ray. 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
[2020-02-01] MEDS: Acetaminophen 650 MG Suppository RECTAL ×2 (18:09→23:14)
[2020-02-01 18:13] LABS: Hematocrit 42.2 % (40-54); Hemoglobin 13.8 g/dL (13.0-16.5); Mean Corp Hgb Conc 32.7 g/dL (32-36); Mean Corpuscular Hgb 28.6 pg (27.0-32.0); Mean Corpuscular Volume 87.4 fL (80-94); POSITIVE DIFFERENTIAL YES; POSITIVE MORPHOLOGY YES; Platelet Count 122 K/mm3 (150-450); RBC Distribution Width CV 14.8 % (11.6-14.6); RBC Distribution Width SD 47.8 fl (35.1-43.9); Red Blood Count 4.83 M/mm3 (4.6-6.2); White Blood Count 17.5 K/mm3 (4.4-11.0)
--- NOTE | 2020-02-01 18:20 | RAD_ITS ---
STUDY: X-RAY CHEST REASON FOR EXAM: Male, 69 years old. Altered mental status, cough, lethargic, temp 103. TECHNIQUE: Single frontal view of the chest. COMPARISON: 04/05/2019 FINDINGS: The lungs are clear and expanded. There is no demonstrated pleural abnormality. Normal size heart. Normal mediastinum and teresita. Normal visualized pulmonary arteries. Normal visualized aortic arch and descending thoracic aorta. Normal visualized thoracic spine. Normal visualized ribs, clavicles, and shoulders. There is no demonstrated abnormality of the visualized soft tissue structures of the upper abdomen. RAD/Chest 1 View (Portable) IMPRESSION: Normal x-ray examination of the chest. Electronically Signed: Luís Stroud MD at 18:53 EDT Tel , Service support ,
[2020-02-01 18:22] LABS: International Normalized Ratio 1.5; Prothrombin Time (Protime)PT. 17.4 SECONDS (11.7-14.9)
[2020-02-01 18:23] LABS: Partial Thromboplast Time 32.5 Seconds (24.1-36.2)
[2020-02-01 18:27] LABS: Mucous, Urine 0 SEEN /hpf (<or=2+)
[2020-02-01 18:32] LABS: Color, Urine Amber (Yellow); Glucose, Dipstick 50 mg/dl (Normal); Ketone-Dipstick 15 mg/dl (Negative); Leukocyte Esterase-Dipstick 100 /ul (Negative); Nitrite-Dipstick Positive (Negative); Occult Blood-Urine 250 /ul (Negative); Protein-Dipstick 500 mg/dl (Negative); Urine Clarity Turbid (Clear); Urine Urobilinogen 1 mg/dl (Normal)
[2020-02-01 18:35] LABS: Base Excess -7 mmol/L (-2 to +2); PO2 58 mmHG (75-100); SO2 91 % (95-99); Total Carbon Dioxide 19 mmol/L; pCO2 27.8 mmHg (35-45); pH 7.42 (7.35-7.45)
[2020-02-01 18:36] LABS: Allen Test POS; Blood Gas Specimen Type ART; O2 Delivery Device Room Air; SITE R RADIAL
[2020-02-01 18:40] LABS: ALB/GLOB Ratio 0.8 RATIO (0.9-2.4); AST(SGOT) 17 U/L (15-37); Alanine Aminotransfer ALT/SGPT 21 U/L (16-61); Albumin, Serum 3.5 g/dL (3.2-5.0); Alkaline Phosphatase 72 U/L (45-117); Anion Gap 11 (5-15); BUN 34 mg/dL (7-18); BUN/Creat Ratio 17.4 RATIO (10-20); Calcium,Total 9.3 mg/dL (8.5-10.1); Chloride 105 mmol/L (98-107); Creatinine, Serum 1.95 mg/dL (0.70-1.30); EST Glomerular Filtration Rate 36 mL/min (>60); Est Glom Filt Rate - Afr Amer 44 mL/min (>60); Estimated Creatinine Clearance 38.69 ml/min; Globulin 4.2 g/dL (2.2-4.2); Glucose 252 mg/dL (74-106); Potassium 4.3 mmol/L (3.5-5.1); Protein, Total 7.7 g/dL (6.4-8.2); Sodium Level 140 mmol/L (136-145)
[2020-02-01 18:41] LABS: Urine Bilirubin Dipstick 1 mg/dL (Negative)
[2020-02-01 18:44] LABS: Lactic Acid 6.3 mmol/L (0.4-1.9)
[2020-02-01 18:46] LABS: Probe Check PASS; SARS-COV-2 DNA by PCR Negative (Negative); Specimen Processing Control PASS
[2020-02-01 18:49] LABS: Bacteria 1+ /hpf (None Seen); Red Blood Cells-Urine 50-100 SEEN /hpf (0-5); Squamous Epithelial Cells - UA 0-5 SEEN /hpf (0-5); White Blood Cells 0-5 SEEN /hpf (0-5); Yeast-Urine RARE /hpf (None Seen)
[2020-02-01 18:58] LABS: Scan Smear per Review Criteria MANUAL DIFF
[2020-02-01 19:02] LABS: Lymphocyte 4 % (19-41); Metamyelocyte 2 % (0-1); Monocyte 6 % (0-10); Neutrophil-Band 33 % (0-5); Neutrophil-Segmented 55 % (47-70)
[2020-02-01 19:03] LABS: Platelet Estimate SLT DEC (ADEQ); Red Cell Morphology NORM C+C NORMAL (NORM C&C)
[2020-02-01] MEDS: Ceftriaxone 1 GM/50 ML BAG IV ×2 (19:25→21:08)
--- NOTE | 2020-02-01 19:38 | PCM.HP.STD ---
Problem List (1) Left acute arterial ischemic stroke, MCA (middle cerebral artery) Status: Chronic (2) HTN (hypertension) Status: Chronic Qualifiers: (3) HLD (hyperlipidemia) Status: Chronic Qualifiers: (4) Diabetes mellitus, type II Status: Chronic (5) Right hemiparesis Status: Chronic (6) Septic shock Status: Acute (7) Urinary tract infection Status: Acute (8) Infectious encephalopathy Status: Acute History of Present Illness Date of Admission: 02/01/20 Chief Complaint: Change in mental status, fever. The patient is a 69 year old M with past medical history as mentioned above presented to the emergency room by squad because of change in mental status. Reportedly, patient's called EMS because of change in mental status and she thought that he may have another stroke. Stroke alert called and upon arrival to emergency department, he was found to have temperature of 103 Fahrenheit. Stroke alert was canceled. At this time, patient is nonverbal and not able to provide any history. No family at the bedside. Patient is lethargic, spontaneous eye opening and not able to provide any history. He is febrile, tachycardic, blood pressure stable, pulse ox is 98% on 2 L. He denied any pain at this time. He had a history of left MCA ischemic stroke on September, with residual right-sided hemiparesis and he has been on aspirin, Plavix and statins. He had another stroke with right JACK ischemic stroke with no significant left-sided weakness and that was on April,. He had a history of hypertension which has been under control with lisinopril. He had a history of type 2 diabetes mellitus which seemed to be under control and his hemoglobin A1c was 7.3% on April,. In the emergency department, patient was febrile, tachycardic, blood pressure was stable, pulse ox was 98% on room air. Routine blood work was remarkable for leukocytosis with neutrophilia, platelet count of 122,000, BUN of 34, creatinine is 1.95. Lactic acid was 6.3. LFT was unremarkable. Urinalysis revealed turbid urine, positive for nitrite and leukocyte esterase, there was 0-5 WBCs and +1 bacteria. Testing for COVID-19 came back negative. Chest x-ray showed no acute infiltrate or consolidation. EKG revealed sinus tachycardia, otherwise unremarkable. He is being admitted for septic shock due to acute cystitis and complicated by acute kidney injury and metabolic encephalopathy. Past Medical History Past Medical History (Chronic Problems): Chronic Problems Left acute arterial ischemic stroke, MCA (middle cerebral artery) (Chronic) HTN (hypertension) (Chronic) HLD (hyperlipidemia) (Chronic) Diabetes mellitus, type II (Chronic) Obesity (BMI 30.0-34.9) (Chronic) Right hemiparesis (Chronic) Allergies hornet venom Allergy (Verified 02/01/20 17:32) Unknown Home Medications: Ambulatory Orders Medication Instructions Recorded Aspirin [Aspir 81] 81 mg PO DAILY 09/08/18 Escitalopram Oxalate [Lexapro] 10 mg PO DAILY #30 tab 11/15/18 Acetaminophen [Acetaminophen Extra 1,000 mg PO Q6H PRN 04/05/19 Strength] Atorvastatin Calcium 40 mg PO QHS 02/01/20 Lisinopril [Zestril] 10 mg PO DAILY 02/01/20 Surgical History: no surgical history, - Psychiatric History: No pertinent psych hx Lives: Spouse/ Significant Other Smoking Status: Never smoker Alcohol: None Drugs: None - *Family History Maternal History Items: - - Patient's mother at age 76 with history of cancer. Paternal History Items: - - Patient's father at age 66 with myocardial infarction, history of diabetes mellitus. Review of Systems Constitutional: Reports: Anorexia, Fever, Weakness, Fatigue Eyes: Denies: Blurred vision, Double vision, Drainage, Redness HEENT: Denies: Difficulty Hearing, Ear Pain, Eye Pain, Nasal Congestion, Sore Throat Cardiovascular: Denies: Chest Pain, Chest Pressure, Chest Tightness, Heaviness, Light Headedness, Palpitations, Syncope Respiratory: Denies: Cough, Pleuritic Pain, Shortness of Breath, Sputum production, Wheezing Gastrointestinal: Denies: Abdominal Pain, Constipation, Nausea, Vomiting Genitourinary: Denies: Dysuria, Frequency, Hematuria Musculoskeletal: Denies: Arm Pain, Back Pain, Foot Pain Skin: Denies: Dryness, Rash Neurological: Reports: Confusion. Denies: Balance problems, Double vision, Change in Speech, Headaches, Incoordination Psychiatric: Denies: Anxiety, Depression Endocrine: Denies: Change in Body Habitus, Polydipsia, Polyuria VTE Information - Inpt Only VTE Present on Admission: No VTE Mechan Device Prophylaxis: None VTE Pharm Prophylaxis ordered?: Yes Patient Problems: Active and Suspected Problems Septic shock (Acute) Urinary tract infection (Acute) Infectious encephalopathy (Acute) - Physical Exam Vitals/I&O's: Vital Signs Temp Pulse Resp BP Pulse Ox 103.2 F H 108 H 34 H 123/64 H 96 02/01/20 19:34 02/01/20 19:34 02/01/20 19:34 02/01/20 19:34 02/01/20 19:34 Oxygen Flow Rate (L/min) 2 Oxygen Delivery Method Nasal Cannula Weight: 183 lb 6.793 oz Body Mass Index (BMI) 24.8 Finger Stick Blood Glucose 198 Intake and Output for Last 24 Hours 01/30/20 01/31/20 02/01/20 23:59 23:59 23:59 Intake Total 1000 / 999 Balance 1000 / 999 General: Alert, Cooperative, Confused, - - Nonverbal. HEENT: Atraumatic, PERRLA, EOMI, Normocephalic Oral: No Gingival or Mucosal Lesions/ Ulcerations, Dry Mucosa Neck: Supple, No JVD, Negative Carotid Bruits, Trachea Midline, Thyroid Normal Size and Texture Lungs: Clear to auscultation, Normal air movement, No rhonchi, No wheeze, No rales, Diminished Cardiovascular: Regular rate, Regular Rhythm, Normal S1, Normal S2, PMI Normal, Tachycardic Abdomen: Bowel Sounds Present, Soft, Non Tender, Non-Distended, No Hepato-splenomegaly Extremities: No clubbing, No cyanosis, Edema Skin: No rashes, No breakdown Lymphatic: No Cervical, Supraclavicular, or Inguinal Adenopathy Neurological: Cranial nerves II-XII grossly intact, - - Right side hemiparesis. Psych/Mental Status: Normal Affect, Flat Affect Laboratory Results 02/01/20 17:33: WBC 17.5 H, RBC 4.83, Hgb 13.8, Hct 42.2, MCV 87.4, MCH 28.6, MCHC 32.7, RDW Std Deviation 47.8 H, RDW Coeff of Nasima 14.8 H, Plt Count 122 L, MPV 11.0, Immature Gran % (Auto) CLOTH SHRINKING SUPERVISOR, Neut % (Auto) CLOTH SHRINKING SUPERVISOR, Lymph % (Auto) CLOTH SHRINKING SUPERVISOR, [place] % (Auto) CLOTH SHRINKING SUPERVISOR, Eos % (Auto) CLOTH SHRINKING SUPERVISOR, Baso % (Auto) CLOTH SHRINKING SUPERVISOR, Absolute Neuts (auto) 15.4 H, Absolute Lymphs (auto) 0.70 L, Total Counted 100, Neutrophils % (Manual) 55, Band Neutrophils % 33 H, Lymphocytes % (Manual) 4 L, Monocytes % (Manual) 6, Metamyelocytes % 2 H, Nucleated RBC % 0, Diff Path Review May , Platelet Estimate SLT DEC, RBC Morphology NORM C+C 02/01/20 17:33: PT 17.4 H, INR 1.5, APTT 32.5 02/01/20 17:33: Sodium 140, Potassium 4.3, Chloride 105, Carbon Dioxide 24.0, Anion Gap 11, BUN 34 H, Creatinine 1.95 H, Estim Creat Clear Calc 38.69, Est GFR (MDRD) Af Amer 44 L, Est GFR (MDRD) Non-Af 36 L, BUN/Creatinine Ratio 17.4, Glucose 252 H, Calcium 9.3, Total Bilirubin 0.80, AST 17, ALT 21, Alkaline Phosphatase 72, Total Protein 7.7, Albumin 3.5, Globulin 4.2, Albumin/Globulin Ratio 0.8 L 02/01/20 17:33: Lactic Acid 6.3 H* 02/01/20 17:39: COVID-19 (TAMERA) Negative 02/01/20 17:45: Specimen Type ART, Sample Site R RADIAL, pH 7.42, Bicarbonate Actual 18.0 L, POC Total CO2 19, Base Excess -7 L, O2 Saturation 91 L, ABG pCO2 27.8 L, ABG pO2 58 L, Jim Test POS, O2 Delivery Device Room Air, Blood Gas Notified Whom ED 02/01/20 18:20: Urine Color Marily, Urine Clarity Turbid, Urine pH 5.0, Ur Specific [place] 1.020, Urine Protein 500 H, Urine Glucose (UA) 50 H, Urine Ketones 15 H, Urine Occult Blood 250 H, Urine Nitrite Positive H, Urine Bilirubin 1 H, Urine Urobilinogen 1 H, Ur Leukocyte Esterase 100 H, Urine RBC 50-100 SEEN, Urine WBC 0-5 SEEN, Ur Squamous Epith Cells 0-5 SEEN, Urine Bacteria 1+, Urine Mucus 0 SEEN, Urine Yeast RARE Clinical Impression(s) from Imaging Studies Chest X-Ray 02/01/20 18:20 IMPRESSION: Normal x-ray examination of the chest. Electronically Signed: Luís Stroud MD at 18:53 EDT Tel , Service support , Current Medications Sodium Chloride () 1,600 mls @ 1,000 mls/hr IV .[id number] ONE Stop: 02/01/20 20:20 Last Admin: 02/01/20 19:25 Dose: 1,000 mls/hr Documented by: Sodium Chloride () 500 mls @ 999 mls/hr IV .Q31M ONE Stop: 02/01/20 20:01 Last Infusion: 02/01/20 18:15 Dose: Infused Documented by: Assessment/Plan All Active Problems Septic shock (Acute) Urinary tract infection (Acute) Infectious encephalopathy (Acute) This is a 69 years old male patient presented to the emergency room because of change in mental status, stroke alert was called and was canceled later because patient was found to have high-grade fever, found to have septic shock secondary to acute cystitis complicated with acute kidney injury and encephalopathy and he is being admitted for treatment. #1 septic shock: Secondary to acute cystitis. Chest x-ray showed no acute findings. Patient is febrile, tachycardic, blood pressure stable. He is receiving bolus of IV fluids 30cc/kg. Testing for COVID-19 came back negative. ABG revealed pH 7.42, PCO2 of 27 and PO2 of 58 which does not match with the pulse ox results, patient has been on 2 L of oxygen and pulse ox is 98%. Plan: Admit to ICU, critical care monitoring, complete bedrest, aspiration precautions, blood culture, urine culture, maintenance IV fluids, Tylenol PRN, Zofran PRN, repeat CBC and BMP tomorrow morning, repeat lactic acid in 3 hours, critical care consult, PT OT evaluation and treatment, speech therapy evaluation and treatment. #2 acute cystitis: Urinalysis reviewed. Previous culture revealed E. coli that was pansensitive. Plan: Urine culture, IV Rocephin 2 g every 24 hours. #3 acute kidney injury: Secondary to septic shock. Baseline creatinine and BUN are normal. Admission creatinine is 1.95, BUN is 34. Plan: IV fluids, input output chart, repeat BMP tomorrow morning. #4 metabolic encephalopathy: Due to septic shock. Patient does have chronic right side hemiparesis secondary to stroke. Power on the left side is normal. Plan as above. #5 history of left MCA stroke/history of right JACK stroke: With resultant right-sided hemiparesis. First stroke was back on September, and the second stroke is on April,. Plan to continue aspirin and statins. #6 type 2 diabetes mellitus: ADA diet, Accu-Cheks, insulin sliding scale, check hemoglobin A1c. #7 hypertension: Blood pressure stable, hold lisinopril for now because of acute kidney injury. #8 hyperlipidemia: Continue statins. #9 CODE STATUS: Unable to determine for now. Patient is not able to understand or comprehend. I try to call the patient's Fabiola at [phone] at 20:02 on February 01, 2020 but nobody answered. #10 DVT prophylaxis: Subcu heparin. This note was generated with [employer] dictation software. It may contain incorrect words, spelling, and punctuation that were not noted in checking the note before signing. Inpatient E&M: 45019 Init Hosp L3
--- NOTE | 2020-02-01 19:52 | ED.RN ---
spoke with for pt update and to verify med list.
[2020-02-01 21:05] LABS: Hemoglobin A1c 6.2 % (3.8-5.6)
[2020-02-01] MEDS: 0.9% Normal Saline 1,000 ML 100 ML IV (21:07)
[2020-02-01] MEDS: Heparin Injection (Vial) 5,000 UNIT/ML VIAL 5000 UNIT SC (21:11)
[2020-02-01 22:01] LABS: Reflex Lactate? Y
[2020-02-01 23:23] LABS: Lactic Acid 4.4 mmol/L (0.4-1.9)
[2020-02-01] MEDS: Insulin Lispro 100 UNIT/ML INSULN.PEN SC (23:31)
[2020-02-02] VITALS (26 sets, daily range): BP systolic 93–130; BP diastolic 53–91; PULSE 76–108; RESP 18–29; TEMP 37.1–39.9; O2SAT 91–99
[2020-02-02 01:20] LABS: Total Cells Counted 100 (MANUAL DIFF)
[2020-02-02 01:21] LABS: Differential Indicated MANUAL DIFF
[2020-02-02 01:22] LABS: Absolute Neutrophil Count 15.4 X10^3/uL (2.0-7.7)
[2020-02-02 03:30] LABS: Bedside Glucose 175 mg/dL (70-110)
[2020-02-02 04:46] LABS: Hematocrit 35.5 % (40-54); Hemoglobin 11.9 g/dL (13.0-16.5); Mean Corp Hgb Conc 33.5 g/dL (32-36); Mean Corpuscular Hgb 28.9 pg (27.0-32.0); Mean Corpuscular Volume 86.2 fL (80-94); Mean Platelet Vol. 11.1 fl (6.2-12.0); POSITIVE COUNT YES; POSITIVE MORPHOLOGY YES; Platelet Count 72 K/mm3 (150-450); RBC Distribution Width CV 15.2 % (11.6-14.6); Red Blood Count 4.12 M/mm3 (4.6-6.2); White Blood Count 20.7 K/mm3 (4.4-11.0)
[2020-02-02 04:52] LABS: Differential Indicated MANUAL DIFF
[2020-02-02 05:12] LABS: Anion Gap 8 (5-15); BUN 36 mg/dL (7-18); BUN/Creat Ratio 20.8 RATIO (10-20); Calcium,Total 8.2 mg/dL (8.5-10.1); Chloride 110 mmol/L (98-107); Creatinine, Serum 1.73 mg/dL (0.70-1.30); EST Glomerular Filtration Rate 42 mL/min (>60); Est Glom Filt Rate - Afr Amer 50 mL/min (>60); Estimated Creatinine Clearance 43.61 ml/min; Glucose 166 mg/dL (74-106); Sodium Level 141 mmol/L (136-145)
[2020-02-02 05:30] LABS: Total Cells Counted 100 (MANUAL DIFF)
[2020-02-02 05:31] LABS: Anisocytosis 1+; Differential Comment SCANNED; Dohle Bodies 1+; Lymphocyte 6 % (19-41); Metamyelocyte 4 % (0-1); Monocyte 2 % (0-10); Neutrophil-Band 24 % (0-5); Neutrophil-Segmented 64 % (47-70); Platelet Estimate MOD DEC (ADEQ); Vacuolated Cells 1+
[2020-02-02 05:32] LABS: Acanthocytes RARE; Burr Cells RARE
[2020-02-02 05:34] LABS: Absolute Lymphocyte Count 1.24 X10^3/uL (0.83-4.51); Absolute Neutrophil Count 18.2 X10^3/uL (2.0-7.7); Lymphocyte # 1.24 X10^3/ul (4.0); Neutrophil # 18.22 X10^3/uL (2.7-7.7)
[2020-02-02] MEDS: Insulin Lispro 100 UNIT/ML INSULN.PEN SC ×2 (06:20→18:12)
--- NOTE | 2020-02-02 06:50 | PCM.CON.CC ---
Problem List (1) HTN (hypertension) Status: Chronic Qualifiers: Hypertension type: essential hypertension (2) HLD (hyperlipidemia) Status: Chronic Qualifiers: (3) Diabetes mellitus, type II Status: Chronic (4) Obesity (BMI 30.0-34.9) Status: Chronic (5) Right hemiparesis Status: Chronic (6) Septic shock Status: Acute (7) Urinary tract infection Status: Acute (8) Infectious encephalopathy Status: Acute Reason for Consult Date of Consultation: 02/02/20 Reason for Consultation: Septic shock History of Present Illness: The patient is a 69 year old M, with past medical history listed below, who presented [facility] on 02/01/2020 secondary to change in mental status and fever. Patient reportedly had a fever of 103 ?F, but there was some initial concern for repeat stroke. Patient reportedly had not been able to speak, but did follow simple commands. Patient did have residual weakness on left side secondary to a previous left ischemic stroke. In the ER, patient was noted to be febrile. Laboratory work-up was consistent with a probable UTI and septic shock with a lactate of 6.3 on presentation. Room air ABG showed respiratory compensation for metabolic acidosis. Patient was given 30 cc/kg of IV fluids, Rocephin and admitted to the intensive care unit for further evaluation. Since being in the intensive care unit, patient has been febrile to 40.7 ?C, but has responded to Tylenol and cooling measures. Patient did have some desaturation overnight, but this was thought to be due to sleep apnea. Patient has not had any respiratory complaints. Blood pressure has been acceptable. Patient opens in his eyes and denies any pain or shortness of breath, but is unable to provide a full review of systems at this time. Patient has been n.p.o. secondary to mental status, but review of the medical record shows he recently had a swallow study with recommendations noted. Past Medical History Past Medical History (Chronic Problems): Chronic Problems Left acute arterial ischemic stroke, MCA (middle cerebral artery) (Chronic) HTN (hypertension) (Chronic) HLD (hyperlipidemia) (Chronic) Diabetes mellitus, type II (Chronic) Obesity (BMI 30.0-34.9) (Chronic) Right hemiparesis (Chronic) Allergies hornet venom Allergy (Verified 02/01/20 17:32) Unknown Home Medications: Ambulatory Orders Medication Instructions Recorded Aspirin [Aspir 81] 81 mg PO DAILY 09/08/18 Escitalopram Oxalate [Lexapro] 10 mg PO DAILY #30 tab 11/15/18 Acetaminophen [Acetaminophen Extra 1,000 mg PO Q6H PRN 04/05/19 Strength] Atorvastatin Calcium 40 mg PO QHS 02/01/20 Lisinopril [Zestril] 10 mg PO DAILY 02/01/20 Surgical History: no surgical history, - Psychiatric History: No pertinent psych hx Lives: Spouse/ Significant Other Smoking Status: Never smoker Alcohol: None Drugs: None - *Family History Maternal History Items: - - Patient's mother at age 76 with history of cancer. Paternal History Items: - - Patient's father at age 66 with myocardial infarction, history of diabetes mellitus. Review of Systems Unable to obtain accurate/complete ROS d/t: Mental status Patient Problems: Active and Suspected Problems Lactic acidosis (Acute) Septic shock (Acute) Urinary tract infection (Acute) Infectious encephalopathy (Acute) Objective: Chest x-ray was personally reviewed and shows no acute infiltrates. Patient did have an echo on 04/05/2019 showing an EF of 65% with mild mitral annular calcification and normal RV function and size. No pulmonary function tests or sleep studies are available for review. - Physical Exam Vitals/I&O's: Vital Signs Temp Pulse Resp BP Pulse Ox 37.3 C H 85 20 H 98/61 97 02/02/20 06:00 02/02/20 06:00 02/02/20 06:00 02/02/20 06:00 02/02/20 06:00 Oxygen Flow Rate (L/min) 2 Oxygen Delivery Method Nasal Cannula Weight: 82.3 kg Body Mass Index (BMI) 24.2 Finger Stick Blood Glucose 198 Intake and Output for Last 24 Hours 01/31/20 02/01/20 02/02/20 23:59 23:59 23:59 Intake Total 2788.33 / 2788.33 Output Total 350 / 350 Balance 2788.33 / 2638.33 -350 / -350 General: Alert, Cooperative, No apparent distress, Lethargic, - - Will open eyes and make eye contact, but not following all commands HEENT: Atraumatic, PERRLA, EOMI, Normocephalic, - - No scleral icterus or injection noted Oral: Moist Mucosa, No Gingival or Mucosal Lesions/ Ulcerations Neck: Supple, No JVD, No Nodes, Trachea Midline Lungs: Clear to auscultation, Normal air movement, No rhonchi, No wheeze, No rales, - - Symmetric expansion. No dullness to percussion. Cardiovascular: Regular rate, Regular Rhythm, Normal S1, Normal S2, No murmurs, No rub noted, No Gallop Abdomen: Bowel Sounds Present, Soft, Non Tender, Non-Distended Extremities: No clubbing, No cyanosis, No edema Skin: No rashes, No breakdown Musculoskeletal: No Tenderness to Palpation of Joints or Extremities Lymphatic: No Cervical, Supraclavicular, or Inguinal Adenopathy Neurological: - - Not following all commands. Patient does have some right-sided weakness noted. Sensation appears to be intact. Psych/Mental Status: Flat Affect Microbiology Past 72 Hours 02/01/20 17:33 Blood Culture (Wb) - Venous Blood Culture - Preliminary 02/01/20 17:35 Blood Culture (Wb) - Venous Blood Culture - Preliminary Laboratory Results 02/01/20 17:33: WBC 17.5 H, RBC 4.83, Hgb 13.8, Hct 42.2, MCV 87.4, MCH 28.6, MCHC 32.7, RDW Std Deviation 47.8 H, RDW Coeff of Nasima 14.8 H, Plt Count 122 L, MPV 11.0, Immature Gran % (Auto) ACQUISITION ADVISOR, Neut % (Auto) ACQUISITION ADVISOR, Lymph % (Auto) ACQUISITION ADVISOR, [place] % (Auto) ACQUISITION ADVISOR, Eos % (Auto) ACQUISITION ADVISOR, Baso % (Auto) ACQUISITION ADVISOR, Absolute Neuts (auto) 15.4 H, Absolute Lymphs (auto) 0.70 L, Total Counted 100, Neutrophils % (Manual) 55, Band Neutrophils % 33 H, Lymphocytes % (Manual) 4 L, Monocytes % (Manual) 6, Metamyelocytes % 2 H, Nucleated RBC % ACQUISITION ADVISOR, Diff Path Review January dimitris, Platelet Estimate SLT DEC, RBC Morphology NORM C+C 02/01/20 17:33: PT 17.4 H, INR 1.5, APTT 32.5 02/01/20 17:33: Sodium 140, Potassium 4.3, Chloride 105, Carbon Dioxide 24.0, Anion Gap 11, BUN 34 H, Creatinine 1.95 H, Estim Creat Clear Calc 38.69, Est GFR (MDRD) Af Amer 44 L, Est GFR (MDRD) Non-Af 36 L, BUN/Creatinine Ratio 17.4, Glucose 252 H, Calcium 9.3, Total Bilirubin 0.80, AST 17, ALT 21, Alkaline Phosphatase 72, Total Protein 7.7, Albumin 3.5, Globulin 4.2, Albumin/Globulin Ratio 0.8 L 02/01/20 17:33: Lactic Acid 6.3 H* 02/01/20 17:33: Hemoglobin A1c 6.2 H 02/01/20 17:39: COVID-19 (TAMERA) Negative 02/01/20 17:45: Specimen Type ART, Sample Site R RADIAL, pH 7.42, Bicarbonate Actual 18.0 L, POC Total CO2 19, Base Excess -7 L, O2 Saturation 91 L, ABG pCO2 27.8 L, ABG pO2 58 L, Jim Test POS, O2 Delivery Device Room Air, Blood Gas Notified Whom ED 02/01/20 18:20: Urine Color Marily, Urine Clarity Turbid, Urine pH 5.0, Ur Specific [place] 1.020, Urine Protein 500 H, Urine Glucose (UA) 50 H, Urine Ketones 15 H, Urine Occult Blood 250 H, Urine Nitrite Positive H, Urine Bilirubin 1 H, Urine Urobilinogen 1 H, Ur Leukocyte Esterase 100 H, Urine RBC 50-100 SEEN, Urine WBC 0-5 SEEN, Ur Squamous Epith Cells 0-5 SEEN, Urine Bacteria 1+, Urine Mucus 0 SEEN, Urine Yeast RARE 02/01/20 22:10: Lactic Acid 4.4 H* 02/01/20 23:28: POC Glucose 175 H 02/02/20 04:35: WBC 20.7 H, RBC 4.12 L, Hgb 11.9 L, Hct 35.5 L, MCV 86.2, MCH 28.9, MCHC 33.5, RDW Std Deviation 48.0 H, RDW Coeff of Nasima 15.2 H, Plt Count 72 L, MPV 11.1, Neut % (Auto) Not Reportable, Absolute Neuts (auto) 18.2 H, Absolute Lymphs (auto) 1.24, Total Counted 100, Neutrophils % (Manual) 64, Band Neutrophils % 24 H, Lymphocytes % (Manual) 6 L, Monocytes % (Manual) 2, Metamyelocytes % 4 H, Differential Comment SCANNED, Diff Path Review May foll, Toxic Vacuolation 1+, Dohle Bodies 1+, Platelet Estimate MOD DEC, Anisocytosis 1+, Vickie Cells RARE, Acanthocytes (Spur) RARE 02/02/20 04:35: Sodium 141, Potassium 4.0, Chloride 110 H, Carbon Dioxide 23.0, Anion Gap 8, BUN 36 H, Creatinine 1.73 H, Estim Creat Clear Calc 43.61, Est GFR (MDRD) Af Amer 50 L, Est GFR (MDRD) Non-Af 42 L, BUN/Creatinine Ratio 20.8 H, Glucose 166 H, Calcium 8.2 L Current Medications Acetaminophen (Tylenol) 650 mg PO Q6H PRN PRN PRN Reason: Pain Score 1-10/Temp > 100.7 F Acetaminophen (Tylenol) 650 mg RECTAL Q6H PRN PRN PRN Reason: TEMP > 100.5 F Last Admin: 02/01/20 23:14 Dose: 650 mg Documented by: Aspirin (Ecotrin) 81 mg PO DAILY@0800 [facility] Atorvastatin Calcium (Lipitor) 40 mg PO QHS [facility] Last Admin: 02/01/20 21:11 Dose: Not Given Documented by: Dextrose (D50w Syringe) 0 gm IV X1 PRN; Protocol PRN Reason: Hypoglycemia Escitalopram Oxalate (Lexapro) 10 mg PO DAILY [facility] Glucagon () 1 mg IM .X1 PRN PRN Reason: Hypoglycemia Heparin Sodium (Porcine) (Heparin Na) 5,000 unit SC Q12 [facility] Last Admin: 02/01/20 21:11 Dose: 5,000 unit Documented by: Sodium Chloride () 1,000 mls @ 100 mls/hr IV .Q10H [facility] Last Infusion: 02/01/20 23:00 Dose: 100 mls/hr Documented by: Ceftriaxone Sodium 2 gm/ (Sodium Chloride) 50 mls @ 100 mls/hr IV Q24@2200 [facility] Sodium Chloride () 250 mls @ 15 mls/hr IV .[id number] PRN PRN Reason: Saline Flush Sodium Chloride () 250 mls @ 15 mls/hr IV .[id number] PRN PRN Reason: Additional IVPB Infusion Insulin Human Lispro (Humalog Kwikpen (Bkc)) 0 unit SC Q6 [facility]; Protocol Last Admin: 02/02/20 06:20 Dose: 1 u Documented by: Ondansetron HCl (Zofran) 4 mg IV Q8H PRN PRN PRN Reason: NAUSEA/VOMITING Senna/Docusate Sodium (Senokot-S, Joy-Colace) 2 tablet PO BID PRN PRN Reason: Constipation Sodium Chloride () 10 - 40 ml IV UD PRN PRN Reason: SALINE FLUSH Clinical Impression(s) from Imaging Studies Chest X-Ray 02/01/20 18:20 IMPRESSION: Normal x-ray examination of the chest. Electronically Signed: Luís Stroud MD at 18:53 EDT Tel , Service support , Assessment/Plan Active and Suspected Problems Lactic acidosis (Acute) Septic shock (Acute) Urinary tract infection (Acute) Infectious encephalopathy (Acute) RECOMMENDATIONS: 1. Continue empiric antibiotics pending culture results 2. Bolus with IV fluids as necessary for hypotension 3. Discussed with family on DIANA status. Bring in machine if available 4. Wean oxygen as tolerated 5. Possible transfer from the intensive care unit later today pending clinical course IMPRESSIONS: 1. Septic shock secondary to gram-negative UTI Patient has grown relatively sensitive E. coli in the past. Urinalysis is consistent with a UTI. Patient has had high fevers, but has remained hemodynamically stable. Previous echocardiogram shows preserved ejection fraction, so fluids can be used with any hypotension. Pending clinical course, patient may be able to be transferred from the intensive care unit later today. 2. Acute kidney injury Patient with a normal baseline creatinine and BUN. Patient has improved with IV fluids. Clinical suspicion for an element of ATN secondary to problem #1. We will continue with aggressive blood pressure support and monitor electrolytes. 3. Metabolic encephalopathy/history of left CVA This appears to be improving with treatment of problem #1. Continue with supportive care. Delirium protocol is in place. 4. Thrombocytopenia Clinical suspicion for dilution effect given volume resuscitation. No bleeding noted at this time. No indication for transfusion. Continue to monitor clinically. 5. Type 2 diabetes mellitus/hypertension/hyperlipidemia/advanced age/poor history/possible DIANA Complicates care, management, recovery and prognosis. We will have to watch blood sugars closely as patient likely has a high endogenous steroid response. Blood pressure medication should be held until more clinically stable. Inpatient E&M: 23747 Init Hosp L3
[2020-02-02] MEDS: 0.9% Normal Saline 1,000 ML 100 ML IV ×2 (07:24→17:29)
--- NOTE | 2020-02-02 09:04 | PN_ITS ---
Patient Problems: Active and Suspected Problems Lactic acidosis (Acute) Septic shock (Acute) Urinary tract infection (Acute) Infectious encephalopathy (Acute) Subjective: More alert, knows that he is at [facility]. He has been doing better than yesterday, no issues overnight Vitals/I&O's: Vital Signs Temp Pulse Resp BP Pulse Ox 98.9 F 81 19 H 93/62 97 02/02/20 07:00 02/02/20 07:00 02/02/20 07:00 02/02/20 07:00 02/02/20 07:00 Oxygen Flow Rate (L/min) 2 Oxygen Delivery Method Nasal Cannula Weight: 181 lb 7.047 oz Body Mass Index (BMI) 24.2 Finger Stick Blood Glucose 198 Intake and Output for Last 24 Hours 01/31/20 02/01/20 02/02/20 23:59 23:59 23:59 Intake Total 2788.33 / 2788.33 840 / 840 Output Total 350 / 350 Balance 2788.33 / 2638.33 490 / 490 General: Alert, Oriented x3, Cooperative, No apparent distress HEENT: Atraumatic, PERRLA, EOMI, Normocephalic Oral: Dry Mucosa Neck: Supple, No JVD Lungs: Clear to auscultation, Normal air movement, No rhonchi, No wheeze, No rales Cardiovascular: Regular rate, Regular Rhythm, Normal S1, Normal S2, No murmurs Abdomen: Soft, Non Tender, Non-Distended, No Hepato-splenomegaly Extremities: No edema, Capillary Refill Less than 3 Seconds Skin: No rashes, No breakdown Neurological: Neuro grossly intact - Continue baseline right-sided weakness, Sensory exam intact to light touch and pain Psych/Mental Status: Flat Affect Microbiology Past 72 Hours 02/01/20 17:33 Blood Culture (Wb) - Venous Blood Culture - Preliminary 02/01/20 17:35 Blood Culture (Wb) - Venous Blood Culture - Preliminary Laboratory Results 02/01/20 17:33: WBC 17.5 H, RBC 4.83, Hgb 13.8, Hct 42.2, MCV 87.4, MCH 28.6, MCHC 32.7, RDW Std Deviation 47.8 H, RDW Coeff of Nasima 14.8 H, Plt Count 122 L, MPV 11.0, Immature Gran % (Auto) ASSISTANT CREDIT MANAGER, Neut % (Auto) ASSISTANT CREDIT MANAGER, Lymph % (Auto) ASSISTANT CREDIT MANAGER, [place] % (Auto) ASSISTANT CREDIT MANAGER, Eos % (Auto) ASSISTANT CREDIT MANAGER, Baso % (Auto) ASSISTANT CREDIT MANAGER, Absolute Neuts (auto) 15.4 H, Absolute Lymphs (auto) 0.70 L, Total Counted 100, Neutrophils % (Manual) 55, Band Neutrophils % 33 H, Lymphocytes % (Manual) 4 L, Monocytes % (Manual) 6, Metamyelocytes % 2 H, Nucleated RBC % ASSISTANT CREDIT MANAGER, Diff Path Review May foll, Platelet Estimate SLT DEC, RBC Morphology NORM C+C 02/01/20 17:33: PT 17.4 H, INR 1.5, APTT 32.5 02/01/20 17:33: Sodium 140, Potassium 4.3, Chloride 105, Carbon Dioxide 24.0, Anion Gap 11, BUN 34 H, Creatinine 1.95 H, Estim Creat Clear Calc 38.69, Est GFR (MDRD) Af Amer 44 L, Est GFR (MDRD) Non-Af 36 L, BUN/Creatinine Ratio 17.4, Glucose 252 H, Calcium 9.3, Total Bilirubin 0.80, AST 17, ALT 21, Alkaline Phosphatase 72, Total Protein 7.7, Albumin 3.5, Globulin 4.2, Albumin/Globulin Ratio 0.8 L 02/01/20 17:33: Lactic Acid 6.3 H* 02/01/20 17:33: Hemoglobin A1c 6.2 H 02/01/20 17:39: COVID-19 (TAMERA) Negative 02/01/20 17:45: Specimen Type ART, Sample Site R RADIAL, pH 7.42, Bicarbonate Actual 18.0 L, POC Total CO2 19, Base Excess -7 L, O2 Saturation 91 L, ABG pCO2 27.8 L, ABG pO2 58 L, Jim Test POS, O2 Delivery Device Room Air, Blood Gas Notified Whom ED 02/01/20 18:20: Urine Color Marily, Urine Clarity Turbid, Urine pH 5.0, Ur Specific [place] 1.020, Urine Protein 500 H, Urine Glucose (UA) 50 H, Urine Ketones 15 H, Urine Occult Blood 250 H, Urine Nitrite Positive H, Urine Bilirubin 1 H, Urine Urobilinogen 1 H, Ur Leukocyte Esterase 100 H, Urine RBC 50-100 SEEN, Urine WBC 0-5 SEEN, Ur Squamous Epith Cells 0-5 SEEN, Urine Bacteria 1+, Urine Mucus 0 SEEN, Urine Yeast RARE 02/01/20 22:10: Lactic Acid 4.4 H* 02/01/20 23:28: POC Glucose 175 H 02/02/20 04:35: WBC 20.7 H, RBC 4.12 L, Hgb 11.9 L, Hct 35.5 L, MCV 86.2, MCH 28.9, MCHC 33.5, RDW Std Deviation 48.0 H, RDW Coeff of Nasima 15.2 H, Plt Count 72 L, MPV 11.1, Neut % (Auto) Not Reportable, Absolute Neuts (auto) 18.2 H, Absolute Lymphs (auto) 1.24, Total Counted 100, Neutrophils % (Manual) 64, Band Neutrophils % 24 H, Lymphocytes % (Manual) 6 L, Monocytes % (Manual) 2, Metamyelocytes % 4 H, Differential Comment SCANNED, Diff Path Review May foll, Toxic Vacuolation 1+, Dohle Bodies 1+, Platelet Estimate MOD DEC, Anisocytosis 1+, Vickie Cells RARE, Acanthocytes (Spur) RARE 02/02/20 04:35: Sodium 141, Potassium 4.0, Chloride 110 H, Carbon Dioxide 23.0, Anion Gap 8, BUN 36 H, Creatinine 1.73 H, Estim Creat Clear Calc 43.61, Est GFR (MDRD) Af Amer 50 L, Est GFR (MDRD) Non-Af 42 L, BUN/Creatinine Ratio 20.8 H, Glucose 166 H, Calcium 8.2 L Current Medications Acetaminophen (Tylenol) 650 mg PO Q6H PRN PRN PRN Reason: Pain Score 1-10/Temp > 100.7 F Acetaminophen (Tylenol) 650 mg RECTAL Q6H PRN PRN PRN Reason: TEMP > 100.5 F Last Admin: 02/01/20 23:14 Dose: 650 mg Documented by: Aspirin (Ecotrin) 81 mg PO DAILY@0800 [facility] Atorvastatin Calcium (Lipitor) 40 mg PO QHS [facility] Last Admin: 02/01/20 21:11 Dose: Not Given Documented by: Dextrose (D50w Syringe) 0 gm IV X1 PRN; Protocol PRN Reason: Hypoglycemia Escitalopram Oxalate (Lexapro) 10 mg PO DAILY [facility] Glucagon () 1 mg IM .X1 PRN PRN Reason: Hypoglycemia Heparin Sodium (Porcine) (Heparin Na) 5,000 unit SC Q12 [facility] Last Admin: 02/01/20 21:11 Dose: 5,000 unit Documented by: Sodium Chloride () 1,000 mls @ 100 mls/hr IV .Q10H [facility] Last Admin: 02/02/20 07:24 Dose: 100 mls/hr Documented by: Ceftriaxone Sodium 2 gm/ (Sodium Chloride) 50 mls @ 100 mls/hr IV Q24@2200 [facility] Sodium Chloride () 250 mls @ 15 mls/hr IV .[id number] PRN PRN Reason: Saline Flush Sodium Chloride () 250 mls @ 15 mls/hr IV .[id number] PRN PRN Reason: Additional IVPB Infusion Insulin Human Lispro (Humalog Kwikpen (Bkc)) 0 unit SC Q6 [facility]; Protocol Last Admin: 02/02/20 06:20 Dose: 1 u Documented by: Ondansetron HCl (Zofran) 4 mg IV Q8H PRN PRN PRN Reason: NAUSEA/VOMITING Senna/Docusate Sodium (Senokot-S, Joy-Colace) 2 tablet PO BID PRN PRN Reason: Constipation Sodium Chloride () 10 - 40 ml IV UD PRN PRN Reason: SALINE FLUSH STROKE Vital Signs/Narrative: Vital Signs Temp Pulse Resp BP Pulse Ox 02/02/20 07:00 98.9 F 81 19 H 93/62 97 02/02/20 06:00 99.2 F H 85 20 H 98/61 97 Medical Necessity - Tobacco Use Smoking Status: Never smoker Assessment/Plan All Active Problems Lactic acidosis (Acute) Septic shock (Acute) Urinary tract infection (Acute) Infectious encephalopathy (Acute) 1. Septic shock secondary to gram-negative UTI/RICHA/metabolic encephalopathy -Continue with IV fluids. COVID was negative -Previous urine cultures with a pansensitive E. coli, continue with Rocephin -Continue monitoring in the ICU reevaluate this afternoon -Likely transient increase in leukocytosis -Creatinine is improved to 1.73, baseline is 0.7 -Encephalopathy is improving 2. HTN/HLD/history of left MCA stroke/history of right JACK stroke -Continue right-sided hemiparesis -Continue with statin, aspirin -Pressures are stable, will hold his lisinopril given his renal function 3. DM 2 -Appears to be diet-controlled, will will place him on a sliding scale insulin -Accu-Cheks AC at bedtime 4. Anxiety/depression -Stable -Continue with Lexapro DVT: Heparin Inpatient E&M: 23659 Subs Hosp L2
--- NOTE | 2020-02-02 09:43 | CASEMGMT ---
HILDA HOLMAN Assessment Note Presentation: change in mental status, fever 103 Diagnosis: Septic Shock secondary to gram-negative UTI Intro role of CM to patient's via phone. Pt unable to participate in assessment . Per , pt is mostly in wheelchair @ home due to previous stroke. 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 states needs for patient are being met at home with current assistance. HILDA HOLMAN discussed case management will follow for discharge planning and discuss any concerns, new needs patient may have on discharge with her. is appreciative of this as she is not able to visit. PMH: JEREMY PCP: Dr. Foster Specialists: per , none Insurance: [facility] Preferred Pharmacy: [facility] Prescription Benefit: yes LNOK: , Fabiola Sepulveda Living Arrangements: Lives in one story home with . Ramp into home and has assistance 7 days week am/pm through [facility] Home Aides. states pt is only able to pivot from chair to commode or chair to bed, does not ambulate. Tranportation: drives DME: wheelchair, walker, shower bench, transfer device in bathroom, bed rail, raised toilet seat. HHC: aides through [facility] home aides SNF: In Rehab/TCU september 2018; [facility] in [place] Apr 2019 Patient DC Goals: Home with if able. DC Plan: undetermined. May need to consider SNF. CM will follow and assist with dc planning needs.. Lisbet MARTINEZ RN ACM
[2020-02-02] MEDS: Aspirin E.C. 81 MG Tablet PO (12:25)
[2020-02-02] MEDS: Heparin Injection (Vial) 5,000 UNIT/ML VIAL 5000 UNIT SC ×2 (12:25→21:10)
[2020-02-02] MEDS: Escitalopram Oxalate 10 MG Tablet PO (12:26)
[2020-02-02] MEDS: Acetaminophen 325 MG Tablet 650 MG PO ×2 (12:28→21:09)
[2020-02-02 12:56] LABS: Bedside Glucose 101 mg/dL (70-110)
[2020-02-02 18:15] LABS: Bedside Glucose 189 mg/dL (70-110)
[2020-02-02] MEDS: Atorvastatin Calcium 40 MG Tablet PO (21:09)
[2020-02-02 23:31] LABS: Bedside Glucose 135 mg/dL (70-110)
[2020-02-03] VITALS (22 sets, daily range): BP systolic 106–157; BP diastolic 61–96; PULSE 77–111; RESP 8–93; TEMP 37.1–39.2; O2SAT 90–94
[2020-02-03] MEDS: 0.9% Saline Lock 10 ML Syringe IV (03:47)
[2020-02-03] MEDS: 0.9% Normal Saline 1,000 ML 100 ML IV ×2 (03:47→14:22)
[2020-02-03 03:59] LABS: Hematocrit 35.2 % (40-54); Hemoglobin 11.8 g/dL (13.0-16.5); Mean Corp Hgb Conc 33.5 g/dL (32-36); Mean Corpuscular Hgb 28.4 pg (27.0-32.0); Mean Corpuscular Volume 84.6 fL (80-94); Mean Platelet Vol. 12.2 fl (6.2-12.0); POSITIVE COUNT YES; POSITIVE MORPHOLOGY YES; Platelet Count 58 K/mm3 (150-450); RBC Distribution Width CV 15.5 % (11.6-14.6); Red Blood Count 4.16 M/mm3 (4.6-6.2); White Blood Count 19.9 K/mm3 (4.4-11.0)
[2020-02-03 04:08] LABS: Differential Indicated MANUAL DIFF
[2020-02-03 04:29] LABS: Anion Gap 7 (5-15); BUN 40 mg/dL (7-18); BUN/Creat Ratio 27.8 RATIO (10-20); Calcium,Total 7.5 mg/dL (8.5-10.1); Chloride 113 mmol/L (98-107); Creatinine, Serum 1.44 mg/dL (0.70-1.30); EST Glomerular Filtration Rate 52 mL/min (>60); Est Glom Filt Rate - Afr Amer 62 mL/min (>60); Estimated Creatinine Clearance 52.39 ml/min; Glucose 129 mg/dL (74-106); Potassium 3.7 mmol/L (3.5-5.1); Sodium Level 143 mmol/L (136-145)
[2020-02-03 05:41] LABS: Bedside Glucose 124 mg/dL (70-110)
[2020-02-03 06:27] LABS: Lymphocyte 3 % (19-41); Metamyelocyte 8 % (0-1); Neutrophil-Band 38 % (0-5); Neutrophil-Segmented 51 % (47-70); Total Cells Counted 100 (MANUAL DIFF)
[2020-02-03 06:29] LABS: Absolute Neutrophil Count 17.7 X10^3/uL (2.0-7.7); Neutrophil # 17.71 X10^3/uL (2.7-7.7)
[2020-02-03 06:32] LABS: Anisocytosis 1+; Platelet Estimate MOD DEC (ADEQ); Schistocytes 1+
[2020-02-03 06:33] LABS: Crenated RBC 3+
--- NOTE | 2020-02-03 07:01 | PCM.PN.INT ---
Subjective: Patient did well overnight. No acute issues were reported. Patient did spike a fever overnight, but remained hemodynamically stable and did not require fluid boluses. Oxygenation was marginal with sleeping, but patient does not have reported DIANA therapy. General: Alert, Cooperative, No apparent distress, - - Answers appropriately HEENT: Atraumatic, PERRLA, EOMI, Normocephalic, - - No scleral icterus or injection noted Oral: No Gingival or Mucosal Lesions/ Ulcerations, Dry Mucosa Neck: Supple, No JVD, No Nodes, Trachea Midline Lungs: No rhonchi, No wheeze, No rales, Diminished, - - Fair effort. Symmetric expansion. Cardiovascular: Regular rate, Regular Rhythm, Normal S1, Normal S2, No murmurs, No rub noted, No Gallop Abdomen: Bowel Sounds Present, Soft, Non Tender, Non-Distended Extremities: No clubbing, No cyanosis, Edema Skin: No rashes, No breakdown Musculoskeletal: No Tenderness to Palpation of Joints or Extremities Lymphatic: No Cervical, Supraclavicular, or Inguinal Adenopathy Neurological: - - No change compared to previous Psych/Mental Status: Appropriate, Flat Affect Vital Signs Temp Pulse Resp BP Pulse Ox 37.4 C H 80 13 121/71 H 92 02/03/20 06:00 02/03/20 06:00 02/03/20 06:00 02/03/20 06:00 02/03/20 06:00 Oxygen Flow Rate (L/min) 1 Oxygen Delivery Method Room Air Weight: 84.1 kg Body Mass Index (BMI) 24.2 Finger Stick Blood Glucose 198 Intake and Output for Last 24 Hours 02/01/20 02/02/20 02/03/20 23:59 23:59 23:59 Intake Total 2788.33 / 2788.33 3166.67 / 3166.67 926.66 / 926.66 Output Total 850 / 850 250 / 250 Balance 2788.33 / 2638.33 2316.67 / 2316.67 676.66 / 676.66 Labs (Last 48 Hours) 02/01/20 02/01/20 02/01/20 17:33 17:33 17:33 WBC 17.5 H RBC 4.83 Hgb 13.8 Hct 42.2 MCV 87.4 MCH 28.6 MCHC 32.7 RDW Std Deviation 47.8 H RDW Coeff of Nasima 14.8 H Plt Count 122 L MPV 11.0 Immature Gran % (Auto) [employer] Neut % (Auto) [employer] Lymph % (Auto) [employer] [place] % (Auto) [employer] Eos % (Auto) [employer] Baso % (Auto) [employer] Absolute Neuts (auto) 15.4 H Absolute Lymphs (auto) 0.70 L Total Counted 100 Neutrophils % (Manual) 55 Band Neutrophils % 33 H Lymphocytes % (Manual) 4 L Monocytes % (Manual) 6 Metamyelocytes % 2 H Nucleated RBC % [employer] Differential Comment Diff Path Review May foll Toxic Vacuolation Dohle Bodies Platelet Estimate SLT DEC RBC Morphology NORM C+C Anisocytosis [place] Cells Crenated Cell Acanthocytes (Spur) Schistocytes PT 17.4 H INR 1.5 APTT 32.5 Specimen Type Sample Site pH Bicarbonate Actual POC Total CO2 Base Excess O2 Saturation ABG pCO2 ABG pO2 Jim Test O2 Delivery Device Blood Gas Notified Whom Sodium 140 Potassium 4.3 Chloride 105 Carbon Dioxide 24.0 Anion Gap 11 BUN 34 H Creatinine 1.95 H Estim Creat Clear Calc 38.69 Est GFR (MDRD) Af Amer 44 L Est GFR (MDRD) Non-Af 36 L BUN/Creatinine Ratio 17.4 Glucose 252 H Hemoglobin A1c Lactic Acid Calcium 9.3 Total Bilirubin 0.80 AST 17 ALT 21 Alkaline Phosphatase 72 Total Protein 7.7 Albumin 3.5 Globulin 4.2 Albumin/Globulin Ratio 0.8 L Urine Color Urine Clarity Urine pH Ur Specific Harris Urine Protein Urine Glucose (UA) Urine Ketones Urine Occult Blood Urine Nitrite Urine Bilirubin Urine Urobilinogen Ur Leukocyte Esterase Urine RBC Urine WBC Ur Squamous Epith Cells Urine Bacteria Urine Mucus Urine Yeast COVID-19 (TAMERA) POC Glucose 02/01/20 02/01/20 02/01/20 17:33 17:33 17:39 WBC RBC Hgb Hct MCV MCH MCHC RDW Std Deviation RDW Coeff of Nasima Plt Count MPV Immature Gran % (Auto) Neut % (Auto) Lymph % (Auto) [place] % (Auto) Eos % (Auto) Baso % (Auto) Absolute Neuts (auto) Absolute Lymphs (auto) Total Counted Neutrophils % (Manual) Band Neutrophils % Lymphocytes % (Manual) Monocytes % (Manual) Metamyelocytes % Nucleated RBC % Differential Comment Diff Path Review Toxic Vacuolation Dohle Bodies Platelet Estimate RBC Morphology Anisocytosis [place] Cells Crenated Cell Acanthocytes (Spur) Schistocytes PT INR APTT Specimen Type Sample Site pH Bicarbonate Actual POC Total CO2 Base Excess O2 Saturation ABG pCO2 ABG pO2 Jim Test O2 Delivery Device Blood Gas Notified Whom Sodium Potassium Chloride Carbon Dioxide Anion Gap BUN Creatinine Estim Creat Clear Calc Est GFR (MDRD) Af Amer Est GFR (MDRD) Non-Af BUN/Creatinine Ratio Glucose Hemoglobin A1c 6.2 H Lactic Acid 6.3 H* Calcium Total Bilirubin AST ALT Alkaline Phosphatase Total Protein Albumin Globulin Albumin/Globulin Ratio Urine Color Urine Clarity Urine pH Ur Specific Harris Urine Protein Urine Glucose (UA) Urine Ketones Urine Occult Blood Urine Nitrite Urine Bilirubin Urine Urobilinogen Ur Leukocyte Esterase Urine RBC Urine WBC Ur Squamous Epith Cells Urine Bacteria Urine Mucus Urine Yeast COVID-19 (TAMERA) Negative POC Glucose 02/01/20 02/01/20 02/01/20 17:45 18:20 22:10 WBC RBC Hgb Hct MCV MCH MCHC RDW Std Deviation RDW Coeff of Nasima Plt Count MPV Immature Gran % (Auto) Neut % (Auto) Lymph % (Auto) [place] % (Auto) Eos % (Auto) Baso % (Auto) Absolute Neuts (auto) Absolute Lymphs (auto) Total Counted Neutrophils % (Manual) Band Neutrophils % Lymphocytes % (Manual) Monocytes % (Manual) Metamyelocytes % Nucleated RBC % Differential Comment Diff Path Review Toxic Vacuolation Dohle Bodies Platelet Estimate RBC Morphology Anisocytosis [place] Cells Crenated Cell Acanthocytes (Spur) Schistocytes PT INR APTT Specimen Type ART Sample Site R RADIAL pH 7.42 Bicarbonate Actual 18.0 L POC Total CO2 19 Base Excess -7 L O2 Saturation 91 L ABG pCO2 27.8 L ABG pO2 58 L Jim Test POS O2 Delivery Device Room Air Blood Gas Notified Whom ED Sodium Potassium Chloride Carbon Dioxide Anion Gap BUN Creatinine Estim Creat Clear Calc Est GFR (MDRD) Af Amer Est GFR (MDRD) Non-Af BUN/Creatinine Ratio Glucose Hemoglobin A1c Lactic Acid 4.4 H* Calcium Total Bilirubin AST ALT Alkaline Phosphatase Total Protein Albumin Globulin Albumin/Globulin Ratio Urine Color Marily Urine Clarity Turbid Urine pH 5.0 Ur Specific Harris 1.020 Urine Protein 500 H Urine Glucose (UA) 50 H Urine Ketones 15 H Urine Occult Blood 250 H Urine Nitrite Positive H Urine Bilirubin 1 H Urine Urobilinogen 1 H Ur Leukocyte Esterase 100 H Urine RBC 50-100 SEEN Urine WBC 0-5 SEEN Ur Squamous Epith Cells 0-5 SEEN Urine Bacteria 1+ Urine Mucus 0 SEEN Urine Yeast RARE COVID-19 (TAMERA) POC Glucose 02/01/20 02/02/20 02/02/20 23:28 04:35 04:35 WBC 20.7 H RBC 4.12 L Hgb 11.9 L Hct 35.5 L MCV 86.2 MCH 28.9 MCHC 33.5 RDW Std Deviation 48.0 H RDW Coeff of Nasima 15.2 H Plt Count 72 L MPV 11.1 Immature Gran % (Auto) Neut % (Auto) Not Reportable Lymph % (Auto) [place] % (Auto) Eos % (Auto) Baso % (Auto) Absolute Neuts (auto) 18.2 H Absolute Lymphs (auto) 1.24 Total Counted 100 Neutrophils % (Manual) 64 Band Neutrophils % 24 H Lymphocytes % (Manual) 6 L Monocytes % (Manual) 2 Metamyelocytes % 4 H Nucleated RBC % Differential Comment SCANNED Diff Path Review May foll Toxic Vacuolation 1+ Dohle Bodies 1+ Platelet Estimate MOD DEC RBC Morphology Anisocytosis 1+ Vickie Cells RARE Crenated Cell Acanthocytes (Spur) RARE Schistocytes PT INR APTT Specimen Type Sample Site pH Bicarbonate Actual POC Total CO2 Base Excess O2 Saturation ABG pCO2 ABG pO2 Jim Test O2 Delivery Device Blood Gas Notified Whom Sodium 141 Potassium 4.0 Chloride 110 H Carbon Dioxide 23.0 Anion Gap 8 BUN 36 H Creatinine 1.73 H Estim Creat Clear Calc 43.61 Est GFR (MDRD) Af Amer 50 L Est GFR (MDRD) Non-Af 42 L BUN/Creatinine Ratio 20.8 H Glucose 166 H Hemoglobin A1c Lactic Acid Calcium 8.2 L Total Bilirubin AST ALT Alkaline Phosphatase Total Protein Albumin Globulin Albumin/Globulin Ratio Urine Color Urine Clarity Urine pH Ur Specific [place] Urine Protein Urine Glucose (UA) Urine Ketones Urine Occult Blood Urine Nitrite Urine Bilirubin Urine Urobilinogen Ur Leukocyte Esterase Urine RBC Urine WBC Ur Squamous Epith Cells Urine Bacteria Urine Mucus Urine Yeast COVID-19 (TAMERA) POC Glucose 175 H 02/02/20 02/02/20 02/02/20 12:42 18:10 23:25 WBC RBC Hgb Hct MCV MCH MCHC RDW Std Deviation RDW Coeff of Nasima Plt Count MPV Immature Gran % (Auto) Neut % (Auto) Lymph % (Auto) [place] % (Auto) Eos % (Auto) Baso % (Auto) Absolute Neuts (auto) Absolute Lymphs (auto) Total Counted Neutrophils % (Manual) Band Neutrophils % Lymphocytes % (Manual) Monocytes % (Manual) Metamyelocytes % Nucleated RBC % Differential Comment Diff Path Review Toxic Vacuolation Dohle Bodies Platelet Estimate RBC Morphology Anisocytosis [place] Cells Crenated Cell Acanthocytes (Spur) Schistocytes PT INR APTT Specimen Type Sample Site pH Bicarbonate Actual POC Total CO2 Base Excess O2 Saturation ABG pCO2 ABG pO2 Jim Test O2 Delivery Device Blood Gas Notified Whom Sodium Potassium Chloride Carbon Dioxide Anion Gap BUN Creatinine Estim Creat Clear Calc Est GFR (MDRD) Af Amer Est GFR (MDRD) Non-Af BUN/Creatinine Ratio Glucose Hemoglobin A1c Lactic Acid Calcium Total Bilirubin AST ALT Alkaline Phosphatase Total Protein Albumin Globulin Albumin/Globulin Ratio Urine Color Urine Clarity Urine pH Ur Specific Harris Urine Protein Urine Glucose (UA) Urine Ketones Urine Occult Blood Urine Nitrite Urine Bilirubin Urine Urobilinogen Ur Leukocyte Esterase Urine RBC Urine WBC Ur Squamous Epith Cells Urine Bacteria Urine Mucus Urine Yeast COVID-19 (TAMERA) POC Glucose 101 189 H 135 H 02/03/20 02/03/20 02/03/20 03:45 03:45 05:26 WBC 19.9 H RBC 4.16 L Hgb 11.8 L Hct 35.2 L MCV 84.6 MCH 28.4 MCHC 33.5 RDW Std Deviation 48.0 H RDW Coeff of Nasima 15.5 H Plt Count 58 L MPV 12.2 H Immature Gran % (Auto) Neut % (Auto) Not Reportable Lymph % (Auto) [place] % (Auto) Eos % (Auto) Baso % (Auto) Absolute Neuts (auto) 17.7 H Absolute Lymphs (auto) 0.60 L Total Counted 100 Neutrophils % (Manual) 51 Band Neutrophils % 38 H Lymphocytes % (Manual) 3 L Monocytes % (Manual) Metamyelocytes % 8 H Nucleated RBC % Differential Comment Diff Path Review May foll Toxic Vacuolation Dohle Bodies Platelet Estimate MOD DEC RBC Morphology Anisocytosis 1+ Vickie Cells Crenated Cell 3+ Acanthocytes (Spur) Schistocytes 1+ PT INR APTT Specimen Type Sample Site pH Bicarbonate Actual POC Total CO2 Base Excess O2 Saturation ABG pCO2 ABG pO2 Jim Test O2 Delivery Device Blood Gas Notified Whom Sodium 143 Potassium 3.7 Chloride 113 H Carbon Dioxide 23.0 Anion Gap 7 BUN 40 H Creatinine 1.44 H Estim Creat Clear Calc 52.39 Est GFR (MDRD) Af Amer 62 Est GFR (MDRD) Non-Af 52 L BUN/Creatinine Ratio 27.8 H Glucose 129 H Hemoglobin A1c Lactic Acid Calcium 7.5 L Total Bilirubin AST ALT Alkaline Phosphatase Total Protein Albumin Globulin Albumin/Globulin Ratio Urine Color Urine Clarity Urine pH Ur Specific Harris Urine Protein Urine Glucose (UA) Urine Ketones Urine Occult Blood Urine Nitrite Urine Bilirubin Urine Urobilinogen Ur Leukocyte Esterase Urine RBC Urine WBC Ur Squamous Epith Cells Urine Bacteria Urine Mucus Urine Yeast COVID-19 (TAMERA) POC Glucose 124 H Microbiology 02/01/20 17:33 Blood Culture (Wb) - Venous Blood Culture - Preliminary 02/01/20 17:35 Blood Culture (Wb) - Venous Blood Culture - Preliminary Medical Necessity - Tobacco Use Smoking Status: Never smoker Assessment/Plan All Active Problems Lactic acidosis (Acute) Septic shock (Acute) Urinary tract infection (Acute) Infectious encephalopathy (Acute) RECOMMENDATIONS: 1. Continue empiric antibiotics pending culture results 2. Consider empiric DIANA therapy if home machine is not available 3. Discussed with family on DIANA status. Bring in machine if available 4. Wean oxygen as tolerated 5. Hemodynamically stable on room air. Will sign off from a critical care perspective IMPRESSIONS: 1. Septic shock secondary to gram-negative UTI Patient has grown relatively sensitive E. coli in the past. Urinalysis is consistent with a UTI. Patient has had high fevers, but has remained hemodynamically stable. Previous echocardiogram shows preserved ejection fraction, so fluids can be used with any hypotension. Hemodynamically stable on room air. Will sign off from a critical care perspective. 2. Acute kidney injury Patient with a normal baseline creatinine and BUN. Patient has improved with IV fluids. Clinical suspicion for an element of ATN secondary to problem #1. Will order a renal ultrasound to rule out obstruction given marginal improvement with IV fluids and blood pressure support. We will continue with aggressive blood pressure support and monitor electrolytes. 3. Metabolic encephalopathy/history of left CVA This appears to be improving with treatment of problem #1. Continue with supportive care. Delirium protocol is in place. 4. Thrombocytopenia Clinical suspicion for dilution effect given volume resuscitation. No bleeding noted at this time. No indication for transfusion. Continue to monitor clinically. 5. Type 2 diabetes mellitus/hypertension/hyperlipidemia/advanced age/poor history/possible DIANA Complicates care, management, recovery and prognosis. We will have to watch blood sugars closely as patient likely has a high endogenous steroid response. Blood pressure medication should be held until more clinically stable. Inpatient E&M: 29768 Subs Hosp L3
--- NOTE | 2020-02-03 07:04 | US_ITS ---
STUDY: RENAL ULTRASOUND - COMPLETE REASON FOR EXAM: Male, 69 years old. UROSEPSIS -- R/O OBSTRUCTION TECHNIQUE: Ultrasound evaluation of the kidneys was performed with real-time and static polanco-scale imaging. COMPARISON: None. FINDINGS: RIGHT KIDNEY: Normal location of the right kidney, which is normal in size. The right kidney measures 12.7 cm x 7.5 cm x 5.5 cm. There is a normal cortex of the right kidney. The renal cortex measures 2.4 cm. There is no right renal mass or cyst. There are no right renal calculi. There is mild hydronephrosis of the right kidney. DISTAL RIGHT URETER: There is non-visualization of the distal right ureter. There is no demonstrated right ureterovesical junction calculus. There is a visualized right ureteral jet. LEFT KIDNEY: Normal location of the left kidney, which is normal in size. The left kidney measures cm. There is a normal cortex of the left kidney. The renal cortex measures 11.6 6.6, 5.3 cm. There is no left renal mass or cyst. There are no left renal calculi. There is no left hydronephrosis. DISTAL LEFT URETER: There is non-visualization of the distal left ureter. There is no demonstrated left ureterovesical junction calculus. There is a visualized left ureteral jet. BLADDER: There is evidence of a diffusely thickened trabeculated bladder wall. The prostate is enlarged with the protrusion into the base of the bladder. US/Kidney and Bladder IMPRESSION: Mild right hydronephrosis. Diffusely thickened trabeculated bladder wall with prostatic enlargement and indentation at the bladder base. Electronically Signed: Jean Montoya, at 10:17 EDT , Service support ,
[2020-02-03] MEDS: Escitalopram Oxalate 10 MG Tablet PO (08:01)
[2020-02-03] MEDS: Heparin Injection (Vial) 5,000 UNIT/ML VIAL 5000 UNIT SC ×2 (08:01→21:23)
[2020-02-03] MEDS: Aspirin E.C. 81 MG Tablet PO (08:01)
--- NOTE | 2020-02-03 11:07 | PCM.PN.HOSP ---
Patient Problems: Active and Suspected Problems Lactic acidosis (Acute) Septic shock (Acute) Urinary tract infection (Acute) Infectious encephalopathy (Acute) Subjective: Feeling better today, more alert. Better temperature curve overnight Vitals/I&O's: Vital Signs Temp Pulse Resp BP Pulse Ox 100.1 F H 92 25 H 140/96 H 93 02/03/20 09:00 02/03/20 09:00 02/03/20 09:00 02/03/20 09:00 02/03/20 09:00 Oxygen Flow Rate (L/min) 3 Oxygen Delivery Method Room Air Weight: 185 lb 6.54 oz Body Mass Index (BMI) 24.2 Finger Stick Blood Glucose 198 Intake and Output for Last 24 Hours 02/01/20 02/02/20 02/03/20 23:59 23:59 23:59 Intake Total 2788.33 / 2788.33 3166.67 / 3166.67 926.66 / 926.66 Output Total 850 / 850 250 / 250 Balance 2788.33 / 2638.33 2316.67 / 2316.67 676.66 / 676.66 General: Alert, Oriented x3, Cooperative, No apparent distress HEENT: Atraumatic, PERRLA, EOMI, Normocephalic Oral: Dry Mucosa Neck: Supple, No JVD Lungs: Clear to auscultation, Normal air movement, No rhonchi, No wheeze, No rales Cardiovascular: Regular rate, Regular Rhythm, Normal S1, Normal S2, No murmurs Abdomen: Soft, Non Tender, Non-Distended, No Hepato-splenomegaly Extremities: No edema, Capillary Refill Less than 3 Seconds Skin: No rashes, No breakdown Neurological: Neuro grossly intact - Continue baseline right-sided weakness, Sensory exam intact to light touch and pain Psych/Mental Status: Flat Affect Microbiology Past 72 Hours 02/01/20 17:33 Blood Culture (Wb) - Venous Blood Culture - Preliminary 02/01/20 17:35 Blood Culture (Wb) - Venous Blood Culture - Preliminary Laboratory Results 02/02/20 12:42: POC Glucose 101 02/02/20 18:10: POC Glucose 189 H 02/02/20 23:25: POC Glucose 135 H 02/03/20 03:45: WBC 19.9 H, RBC 4.16 L, Hgb 11.8 L, Hct 35.2 L, MCV 84.6, MCH 28.4, MCHC 33.5, RDW Std Deviation 48.0 H, RDW Coeff of Nasima 15.5 H, Plt Count 58 L, MPV 12.2 H, Neut % (Auto) Not Reportable, Absolute Neuts (auto) 17.7 H, Absolute Lymphs (auto) 0.60 L, Total Counted 100, Neutrophils % (Manual) 51, Band Neutrophils % 38 H, Lymphocytes % (Manual) 3 L, Metamyelocytes % 8 H, Diff Path Review May foll, Platelet Estimate MOD DEC, Anisocytosis 1+, Crenated Cell 3+, Schistocytes 1+ 02/03/20 03:45: Sodium 143, Potassium 3.7, Chloride 113 H, Carbon Dioxide 23.0, Anion Gap 7, BUN 40 H, Creatinine 1.44 H, Estim Creat Clear Calc 52.39, Est GFR (MDRD) Af Amer 62, Est GFR (MDRD) Non-Af 52 L, BUN/Creatinine Ratio 27.8 H, Glucose 129 H, Calcium 7.5 L 02/03/20 05:26: POC Glucose 124 H Current Medications Acetaminophen (Tylenol) 650 mg PO Q6H PRN PRN PRN Reason: Pain Score 1-10/Temp > 100.7 F Last Admin: 02/02/20 21:09 Dose: 650 mg Documented by: Acetaminophen (Tylenol) 650 mg RECTAL Q6H PRN PRN PRN Reason: TEMP > 100.5 F Last Admin: 02/01/20 23:14 Dose: 650 mg Documented by: Aspirin (Ecotrin) 81 mg PO DAILY@0800 [facility] Last Admin: 02/03/20 08:01 Dose: 81 mg Documented by: Atorvastatin Calcium (Lipitor) 40 mg PO QHS [facility] Last Admin: 02/02/20 21:09 Dose: 40 mg Documented by: Dextrose (D50w Syringe) 0 gm IV X1 PRN; Protocol PRN Reason: Hypoglycemia Escitalopram Oxalate (Lexapro) 10 mg PO DAILY [facility] Last Admin: 02/03/20 08:01 Dose: 10 mg Documented by: Glucagon () 1 mg IM .X1 PRN PRN Reason: Hypoglycemia Heparin Sodium (Porcine) (Heparin Na) 5,000 unit SC Q12 [facility] Last Admin: 05/31/20 08:01 Dose: 5,000 unit Documented by: Sodium Chloride () 1,000 mls @ 100 mls/hr IV .Q10H HOWIE Last Infusion: 02/03/20 06:25 Dose: 100 mls/hr Documented by: Ceftriaxone Sodium 2 gm/ (Sodium Chloride) 50 mls @ 100 mls/hr IV Q24@2200 HOWIE Last Infusion: 02/02/20 21:39 Dose: Infused Documented by: Sodium Chloride () 250 mls @ 15 mls/hr IV .[id number] PRN PRN Reason: Saline Flush Sodium Chloride () 250 mls @ 15 mls/hr IV .[id number] PRN PRN Reason: Additional IVPB Infusion Insulin Human Lispro (Humalog Kwikpen (Bkc)) 0 unit SC Q6 HOWIE; Protocol Last Admin: 02/03/20 05:40 Dose: Not Given Documented by: Nutritional Formula (Lactose Free) (Ensure Enlive) 120 ml PO 4X/DAY [facility] Last Admin: 02/03/20 08:03 Dose: 120 ml Documented by: Ondansetron HCl (Zofran) 4 mg IV Q8H PRN PRN PRN Reason: NAUSEA/VOMITING Senna/Docusate Sodium (Senokot-S, Joy-Colace) 2 tablet PO BID PRN PRN Reason: Constipation Sodium Chloride () 10 - 40 ml IV UD PRN PRN Reason: SALINE FLUSH Last Admin: 02/03/20 03:47 Dose: 10 ml Documented by: STROKE Vital Signs/Narrative: Vital Signs Temp Pulse Resp BP Pulse Ox 02/03/20 09:00 100.1 F H 92 25 H 140/96 H 93 02/03/20 08:00 100 F H 85 11 L 136/84 H 92 02/03/20 07:31 81 Medical Necessity - Tobacco Use Smoking Status: Never smoker Assessment/Plan All Active Problems Lactic acidosis (Acute) Septic shock (Acute) Urinary tract infection (Acute) Infectious encephalopathy (Acute) 1. Septic shock secondary to gram-negative UTI/RICHA/metabolic encephalopathy -Continue with IV fluids. COVID was negative -Previous urine cultures with a pansensitive E. coli, continue with Rocephin -Can transfer to PCU today -Creatinine is improved to 1.44, baseline is 0.7 -Encephalopathy is resolved 2. HTN/HLD/history of left MCA stroke/history of right JACK stroke -Continue right-sided hemiparesis -Continue with statin, aspirin -Pressures are stable, will hold his lisinopril given his renal function 3. DM 2 -Appears to be diet-controlled, will will place him on a sliding scale insulin -Accu-Cheks AC at bedtime 4. Anxiety/depression -Stable -Continue with Lexapro DVT: Heparin Inpatient E&M: [id number] Subs Hosp L2
[2020-02-03 12:05] LABS: Bedside Glucose 170 mg/dL (70-110)
[2020-02-03] MEDS: Acetaminophen 325 MG Tablet 650 MG PO ×2 (12:06→21:51)
[2020-02-03] MEDS: Insulin Lispro 100 UNIT/ML INSULN.PEN SC ×3 (12:08→23:59)
--- NOTE | 2020-02-03 13:00 | NURSING ---
talked with on phone
--- NOTE | 2020-02-03 15:27 | NURSING ---
report called to [facility] for transfer per bed with belongings to room 110, called to inform her of transfer
[2020-02-03 16:45] LABS: Bedside Glucose 165 mg/dL (70-110)
--- NOTE | 2020-02-03 17:49 | NURSING ---
This RN talked to pt's daughter, Katerine on the phone and her an update.
[2020-02-03] MEDS: Atorvastatin Calcium 40 MG Tablet PO (21:22)
[2020-02-04] VITALS (13 sets, daily range): BP systolic 134–159; BP diastolic 72–90; PULSE 75–81; RESP 14–18; TEMP 36.8–37.1; O2SAT 93–95
[2020-02-04 00:05] LABS: Bedside Glucose 162 mg/dL (70-110)
[2020-02-04] MEDS: 0.9% Normal Saline 1,000 ML 100 ML IV ×3 (00:09→20:27)
[2020-02-04 06:06] LABS: Bedside Glucose 149 mg/dL (70-110)
[2020-02-04 06:10] LABS: Absolute Lymphocyte Count 0.92 X10^3/uL (0.83-4.51); Absolute Neutrophil Count 14.3 X10^3/uL (2.0-7.7); Basophil# 0.03 X10^3/uL; Basophil% 0.2 % (0-1); Eosinophil# 0.04 X10^3/uL; Eosinophils% 0.2 % (0-5); Hematocrit 35.2 % (40-54); Hemoglobin 11.8 g/dL (13.0-16.5); Lymphocyte # 0.92 X10^3/ul (4.0); Lymphocyte % 5.7 % (19-41); Mean Corp Hgb Conc 33.5 g/dL (32-36); Mean Corpuscular Hgb 28.7 pg (27.0-32.0); Mean Corpuscular Volume 85.6 fL (80-94); Mean Platelet Vol. 11.6 fl (6.2-12.0); NRBC Flagged by Analyzer 0 % (0-5); Neutrophil # 14.26 X10^3/uL (2.7-7.7); Neutrophil % 88.5 % (47-70); POSITIVE COUNT YES; Platelet Count 60 K/mm3 (150-450); RBC Distribution Width CV 15.6 % (11.6-14.6); RBC Distribution Width SD 48.4 fl (35.1-43.9); Red Blood Count 4.11 M/mm3 (4.6-6.2); White Blood Count 16.1 K/mm3 (4.4-11.0)
[2020-02-04 06:33] LABS: Anion Gap 7 (5-15); BUN 35 mg/dL (7-18); BUN/Creat Ratio 29.4 RATIO (10-20); Calcium,Total 7.6 mg/dL (8.5-10.1); Chloride 116 mmol/L (98-107); Creatinine, Serum 1.19 mg/dL (0.70-1.30); EST Glomerular Filtration Rate 64 mL/min (>60); Est Glom Filt Rate - Afr Amer 78 mL/min (>60); Glucose 146 mg/dL (74-106); Potassium 3.5 mmol/L (3.5-5.1); Sodium Level 144 mmol/L (136-145)
[2020-02-04] MEDS: Aspirin E.C. 81 MG Tablet PO (08:26)
[2020-02-04] MEDS: Escitalopram Oxalate 10 MG Tablet PO (08:27)
[2020-02-04] MEDS: Heparin Injection (Vial) 5,000 UNIT/ML VIAL 5000 UNIT SC ×2 (08:27→22:28)
--- NOTE | 2020-02-04 10:56 | NURSING ---
[id number] UPDATED ELAINE VIA PHONE OF PATIENT CONDITION AND PLAN OF CARE. TRANSFERRED INTO PATIENT ROOM TO SPEAK TO
[2020-02-04] MEDS: Insulin Lispro 100 UNIT/ML INSULN.PEN SC ×2 (11:43→17:03)
--- NOTE | 2020-02-04 11:48 | PN_ITS ---
Patient Problems: Active and Suspected Problems Lactic acidosis (Acute) Septic shock (Acute) Urinary tract infection (Acute) Infectious encephalopathy (Acute) Subjective: Patient seen and examined. He looked quite lethargic and did say he felt quite weak. He denied any fever or chills, any nausea vomiting or diarrhea. Review o f systems otherwise negative. Vitals/I&O's: Vital Signs Temp Pulse Resp BP Pulse Ox 98.3 F 80 14 142/72 H 95 02/04/20 08:30 02/04/20 08:30 02/04/20 08:30 02/04/20 08:30 02/04/20 08:30 Oxygen Flow Rate (L/min) 3 Oxygen Delivery Method Room Air Weight: 187 lb 6.287 oz Body Mass Index (BMI) 24.2 Finger Stick Blood Glucose 198 Intake and Output for Last 24 Hours 02/02/20 02/03/20 02/04/20 23:59 23:59 23:59 Intake Total 3166.67 / 3166.67 2153.33 / 2153.33 2218.33 / 2218.33 Output Total 850 / 850 700 / 700 Balance 2316.67 / 2316.67 1453.33 / 1453.33 2218.33 / 2218.33 General: Alert, Oriented x3, Cooperative, No apparent distress, Lethargic HEENT: Atraumatic, PERRLA, EOMI, Normocephalic Oral: Dry Mucosa Neck: Supple, No JVD, Negative Carotid Bruits Lungs: Clear to auscultation, Normal air movement, No rhonchi, No wheeze Cardiovascular: Regular rate, Regular Rhythm, Normal S1, Normal S2, No murmurs Abdomen: Bowel Sounds Present, Soft, Non Tender, Non-Distended, No Hepato- splenomegaly Extremities: No clubbing, No cyanosis, No edema, Capillary Refill Less than 3 Seconds Skin: No rashes, No breakdown Musculoskeletal: No Tenderness to Palpation of Joints or Extremities Neurological: - - slurred speech and residual right sided weakness from previous stroke Psych/Mental Status: Normal Affect, Appropriate, Alert and oriented to time, place, person, mood and affect Microbiology Past 72 Hours 02/01/20 17:33 Blood Culture (Wb) - Venous Blood Culture - Final Escherichia coli 02/01/20 18:20 Urine, Catheterized Urine Culture - Final Escherichia coli 02/01/20 17:35 Blood Culture (Wb) - Venous Blood Culture - Preliminary Laboratory Results 02/03/20 12:03: POC Glucose 170 H 02/03/20 16:38: POC Glucose 165 H 02/03/20 23:58: POC Glucose 162 H 02/04/20 05:40: POC Glucose 149 H 02/04/20 05:56: WBC 16.1 H, RBC 4.11 L, Hgb 11.8 L, Hct 35.2 L, MCV 85.6, MCH 28.7, MCHC 33.5, RDW Std Deviation 48.4 H, RDW Coeff of Nasima 15.6 H, Plt Count 60 L, MPV 11.6, Immature Gran % (Auto) 0.400, Neut % (Auto) 88.5 H, Lymph % (Auto) 5.7 L, Brooks % (Auto) 5.0, Eos % (Auto) 0.2, Baso % (Auto) 0.2, Absolute Neuts (auto) 14.3 H, Absolute Lymphs (auto) 0.92, Nucleated RBC % 0 02/04/20 05:56: Sodium 144, Potassium 3.5, Chloride 116 H, Carbon Dioxide 21.0, Anion Gap 7, BUN 35 H, Creatinine 1.19, Estim Creat Clear Calc 63.40, Est GFR (MDRD) Af Amer 78, Est GFR (MDRD) Non-Af 64, BUN/Creatinine Ratio 29.4 H, Glucose 146 H, Calcium 7.6 L Diagnostic Data Chest X-Ray 02/01/20 18:20 IMPRESSION: Normal x-ray examination of the chest. Electronically Signed: Luís Stroud MD at 18:53 EDT Tel , Service support , Renal Ultrasound 02/03/20 07:04 IMPRESSION: Mild right hydronephrosis. Diffusely thickened trabeculated bladder wall with prostatic enlargement and indentation at the bladder base. Electronically Signed: Jean Montoya, at 10:17 EDT , Service support , Current Medications Acetaminophen (Tylenol) 650 mg PO Q6H PRN PRN PRN Reason: Pain Score 1-10/Temp > 100.7 F Last Admin: 02/03/20 21:51 Dose: 650 mg Documented by: Aspirin (Ecotrin) 81 mg PO DAILY@0800 [facility] Last Admin: 02/04/20 08:26 Dose: 81 mg Documented by: Atorvastatin Calcium (Lipitor) 40 mg PO QHS [facility] Last Admin: 02/03/20 21:22 Dose: 40 mg Documented by: Dextrose (D50w Syringe) 0 gm IV X1 PRN; Protocol PRN Reason: Hypoglycemia Escitalopram Oxalate (Lexapro) 10 mg PO DAILY [facility] Last Admin: 02/04/20 08:27 Dose: 10 mg Documented by: Glucagon () 1 mg IM .X1 PRN PRN Reason: Hypoglycemia Heparin Sodium (Porcine) (Heparin Na) 5,000 unit SC Q12 [facility] Last Admin: 02/04/20 08:27 Dose: 5,000 unit Documented by: Sodium Chloride () 1,000 mls @ 100 mls/hr IV .Q10H [facility] Last Admin: 02/04/20 10:10 Dose: 100 mls/hr Documented by: Ceftriaxone Sodium 2 gm/ (Sodium Chloride) 50 mls @ 100 mls/hr IV Q24@2200 [facility] Last Infusion: 02/03/20 22:00 Dose: Infused Documented by: Sodium Chloride () 250 mls @ 15 mls/hr IV .[id number] PRN PRN Reason: Saline Flush Sodium Chloride () 250 mls @ 15 mls/hr IV .[id number] PRN PRN Reason: Additional IVPB Infusion Insulin Human Lispro (Humalog Kwikpen (Bkc)) 0 unit SC Q6 [facility]; Protocol Last Admin: 02/04/20 11:43 Dose: 2 u Documented by: Nutritional Formula (Lactose Free) (Ensure Enlive) 120 ml PO 4X/DAY [facility] Last Admin: 02/04/20 11:43 Dose: 120 ml Documented by: Ondansetron HCl (Zofran) 4 mg IV Q8H PRN PRN PRN Reason: NAUSEA/VOMITING Senna/Docusate Sodium (Senokot-S, Joy-Colace) 2 tablet PO BID PRN PRN Reason: Constipation Sodium Chloride () 10 - 40 ml IV UD PRN PRN Reason: SALINE FLUSH Last Admin: 02/03/20 03:47 Dose: 10 ml Documented by: STROKE Vital Signs/Narrative: Vital Signs Temp Pulse Resp BP Pulse Ox 02/04/20 08:30 98.3 F 80 14 142/72 H 95 02/04/20 08:00 77 Medical Necessity - Tobacco Use Smoking Status: Never smoker Assessment/Plan All Active Problems Lactic acidosis (Acute) Septic shock (Acute) Urinary tract infection (Acute) Infectious encephalopathy (Acute) 1. Septic shock due to gram negative UTI * Urine culture E. coli. Currently on IV Rocephin. * WBC is down to 16.1. * Blood also cultured E. coli. * continue IV rocephin * 2. RICHA: resolved. Cr is down to 1.19 3. History of stroke: Has residual right-sided hemiparesis. Continue aspirin and statin. 4. Hypertension: Lisinopril on hold on account of RICHA. Blood pressure has been fairly well controlled. 5. Type 2 diabetes mellitus: On insulin sliding scale. Accu-Cheks AC at bedtime. 6. Debility: due to sepsis and previous stroke. PT./OT consult Anxiety and depression: on lexapro. DVT prophylaxis: heparin Inpatient E&M: 74284 Subs Hosp L2
[2020-02-04 11:51] LABS: Bedside Glucose 210 mg/dL (70-110)
[2020-02-04 11:53] LABS: Pathologist Review Reviewed
[2020-02-04 11:55] LABS: Pathologist Review Reviewed
[2020-02-04 11:58] LABS: Pathologist Review Reviewed
--- NOTE | 2020-02-04 13:19 | CASEMGMT ---
LW/POA on file, however the witness/notary page for LW is missing. SW let pt know and asked him to bring it in if able at some point in the future. Fabiola Sepulveda is pt's medical POA. VICKIE Monaco
[2020-02-04 17:25] LABS: Bedside Glucose 164 mg/dL (70-110)
[2020-02-04 23:46] LABS: Bedside Glucose 149 mg/dL (70-110)
[2020-02-05] VITALS (7 sets, daily range): BP systolic 137–156; BP diastolic 66–86; PULSE 71–83; RESP 16–18; TEMP 36.8–37.1; O2SAT 92–95
[2020-02-05 05:45] LABS: Absolute Lymphocyte Count 1.13 X10^3/uL (0.83-4.51); Absolute Neutrophil Count 7.6 X10^3/uL (2.0-7.7); Basophil# 0.02 X10^3/uL; Basophil% 0.2 % (0-1); Hematocrit 35.4 % (40-54); Lymphocyte # 1.13 X10^3/ul (4.0); Lymphocyte % 10.8 % (19-41); Mean Corp Hgb Conc 33.9 g/dL (32-36); Mean Corpuscular Hgb 28.4 pg (27.0-32.0); Mean Corpuscular Volume 83.7 fL (80-94); Mean Platelet Vol. 11.1 fl (6.2-12.0); Monocyte# 1.48 X10^3/uL; Monocyte% 14.1 % (0-10); NRBC Flagged by Analyzer 0 % (0-5); Neutrophil # 7.63 X10^3/uL (2.7-7.7); Neutrophil % 72.7 % (47-70); POSITIVE COUNT YES; Platelet Count 61 K/mm3 (150-450); RBC Distribution Width CV 15.5 % (11.6-14.6); RBC Distribution Width SD 46.9 fl (35.1-43.9); Red Blood Count 4.23 M/mm3 (4.6-6.2); White Blood Count 10.5 K/mm3 (4.4-11.0)
[2020-02-05 05:56] LABS: Differential Indicated SCAN CRITERIA MET
[2020-02-05 05:56] LABS: Bedside Glucose 139 mg/dL (70-110)
[2020-02-05 06:01] LABS: Anion Gap 5 (5-15); BUN 28 mg/dL (7-18); BUN/Creat Ratio 25.7 RATIO (10-20); Calcium,Total 7.8 mg/dL (8.5-10.1); Chloride 115 mmol/L (98-107); Creatinine, Serum 1.09 mg/dL (0.70-1.30); EST Glomerular Filtration Rate 71 mL/min (>60); Est Glom Filt Rate - Afr Amer 86 mL/min (>60); Estimated Creatinine Clearance 69.22 ml/min; Glucose 147 mg/dL (74-106); Potassium 3.6 mmol/L (3.5-5.1); Sodium Level 144 mmol/L (136-145)
[2020-02-05 06:38] LABS: Anisocytosis 1+; Crenated RBC RARE; Differential Comment SCANNED; Ovalocyte RARE; Platelet Estimate MOD DEC (ADEQ); Schistocytes RARE
[2020-02-05 06:39] LABS: Tear Drop Cell RARE
[2020-02-05] MEDS: 0.9% Normal Saline 1,000 ML 100 ML IV (06:48)
[2020-02-05] MEDS: Escitalopram Oxalate 10 MG Tablet PO (09:15)
[2020-02-05] MEDS: Aspirin E.C. 81 MG Tablet PO (09:15)
[2020-02-05] MEDS: Heparin Injection (Vial) 5,000 UNIT/ML VIAL 5000 UNIT SC (09:15)
--- NOTE | 2020-02-05 09:31 | CASEMGMT ---
SW spoke with patient about SNF as he is not doing well with therapy. Patient said he has been to [facility] where he spent several months. SW asked if that is where he would go if he has to go somewhere. He said he wants to go home. SW asked him if he would like a SNF list. SW also asked if he would like SW to check on the unit here at [facility] and he said no he wants to go home. He would not allow SW to make any referrals. SW told him we can see how he does with therapy and then go from there on a decision. Marci MCCOLLUM SPORTS ANALYST
[2020-02-05] MEDS: Insulin Lispro 100 UNIT/ML INSULN.PEN SC (11:40)
--- NOTE | 2020-02-05 11:40 | PN_ITS ---
Patient Problems: Active and Suspected Problems Lactic acidosis (Acute) Septic shock (Acute) Urinary tract infection (Acute) Infectious encephalopathy (Acute) Subjective: Patient seen and examined. He was a bit more alert today and had no complaints and inquired about breakfast. He still is quite frail. He denied any fever, an y chills, any nausea vomiting or diarrhea. Review of systems otherwise negative. Labs and vitals reviewed. Vitals/I&O's: Vital Signs Temp Pulse Resp BP Pulse Ox 98.3 F 72 16 156/86 H 92 02/05/20 09:10 02/05/20 09:10 02/05/20 09:10 02/05/20 09:10 02/05/20 09:10 Oxygen Flow Rate (L/min) 3 Oxygen Delivery Method Room Air Weight: 189 lb 9.561 oz Body Mass Index (BMI) 24.2 Finger Stick Blood Glucose 198 Intake and Output for Last 24 Hours 02/03/20 02/04/20 02/05/20 23:59 23:59 23:59 Intake Total 2153.33 / 2153.33 3811.66 / 3811.66 935.00 / 935.00 Output Total 700 / 700 Balance 1453.33 / 1453.33 3811.66 / 3811.66 935.00 / 935.00 General: Alert, Oriented x3, Cooperative, No apparent distress, Lethargic HEENT: Atraumatic, PERRLA, EOMI, Normocephalic Oral: Dry Mucosa Neck: Supple, No JVD, Negative Carotid Bruits Lungs: Clear to auscultation, Normal air movement, No rhonchi, No wheeze Cardiovascular: Regular rate, Regular Rhythm, Normal S1, Normal S2, No murmurs Abdomen: Bowel Sounds Present, Soft, Non Tender, Non-Distended, No Hepato- splenomegaly Extremities: No clubbing, No cyanosis, No edema, Capillary Refill Less than 3 Seconds Skin: No rashes, No breakdown Musculoskeletal: No Tenderness to Palpation of Joints or Extremities Neurological: - - slurred speech and residual right sided weakness from previous stroke Psych/Mental Status: flat affect Microbiology Past 72 Hours 02/01/20 17:35 Blood Culture (Wb) - Venous Blood Culture - Final GNR lactose fur comber 02/01/20 17:33 Blood Culture (Wb) - Venous Blood Culture - Final Escherichia coli 02/01/20 18:20 Urine, Catheterized Urine Culture - Final Escherichia coli Laboratory Results 02/01/20 17:33: Diff Path Review Reviewed 02/02/20 04:35: Diff Path Review Reviewed 02/03/20 03:45: Diff Path Review Reviewed 02/04/20 11:41: POC Glucose 210 H 02/04/20 17:00: POC Glucose 164 H 02/04/20 23:40: POC Glucose 149 H 02/05/20 05:30: WBC 10.5, RBC 4.23 L, Hgb 12.0 L, Hct 35.4 L, MCV 83.7, MCH 28.4, MCHC 33.9, RDW Std Deviation 46.9 H, RDW Coeff of Nasima 15.5 H, Plt Count 61 L, MPV 11.1, Immature Gran % (Auto) 1.200 H, Neut % (Auto) 72.7 H, Lymph % (Auto) 10.8 L, Divide % (Auto) 14.1 H, Eos % (Auto) 1.0, Baso % (Auto) 0.2, Absolute Neuts (auto) 7.6, Absolute Lymphs (auto) 1.13, Nucleated RBC % 0, Differential Comment SCANNED, Platelet Estimate MOD DEC, Anisocytosis 1+, Tear Drop Cells RARE, Ovalocytes RARE, Crenated Cell RARE, Schistocytes RARE 02/05/20 05:30: Sodium 144, Potassium 3.6, Chloride 115 H, Carbon Dioxide 24.0, Anion Gap 5, BUN 28 H, Creatinine 1.09, Estim Creat Clear Calc 69.22, Est GFR (MDRD) Af Amer 86, Est GFR (MDRD) Non-Af 71, BUN/Creatinine Ratio 25.7 H, Glucose 147 H, Calcium 7.8 L 02/05/20 05:50: POC Glucose 139 H Diagnostic Data Chest X-Ray 02/01/20 18:20 IMPRESSION: Normal x-ray examination of the chest. Electronically Signed: Luís Stroud MD at 18:53 EDT Tel , Service support , Renal Ultrasound 02/03/20 07:04 IMPRESSION: Mild right hydronephrosis. Diffusely thickened trabeculated bladder wall with prostatic enlargement and indentation at the bladder base. Electronically Signed: Jean Montoya, at 10:17 EDT , Service support , Current Medications Acetaminophen (Tylenol) 650 mg PO Q6H PRN PRN PRN Reason: Pain Score 1-10/Temp > 100.7 F Last Admin: 02/03/20 21:51 Dose: 650 mg Documented by: Aspirin (Ecotrin) 81 mg PO DAILY@0800 [facility] Last Admin: 02/05/20 09:15 Dose: 81 mg Documented by: Atorvastatin Calcium (Lipitor) 40 mg PO QHS [facility] Last Admin: 02/04/20 22:21 Dose: Not Given Documented by: Dextrose (D50w Syringe) 0 gm IV X1 PRN; Protocol PRN Reason: Hypoglycemia Escitalopram Oxalate (Lexapro) 10 mg PO DAILY [facility] Last Admin: 02/05/20 09:15 Dose: 10 mg Documented by: Glucagon () 1 mg IM .X1 PRN PRN Reason: Hypoglycemia Heparin Sodium (Porcine) (Heparin Na) 5,000 unit SC Q12 [facility] Last Admin: 02/05/20 09:15 Dose: 5,000 unit Documented by: Sodium Chloride () 1,000 mls @ 100 mls/hr IV .Q10H [facility] Last Infusion: 02/05/20 09:20 Dose: 100 mls/hr Documented by: Ceftriaxone Sodium 2 gm/ (Sodium Chloride) 50 mls @ 100 mls/hr IV Q24@2200 [facility] Last Infusion: 02/04/20 22:54 Dose: Infused Documented by: Sodium Chloride () 250 mls @ 15 mls/hr IV .[id number] PRN PRN Reason: Saline Flush Sodium Chloride () 250 mls @ 15 mls/hr IV .[id number] PRN PRN Reason: Additional IVPB Infusion Insulin Human Lispro (Humalog Kwikpen (Bkc)) 0 unit SC Q6 [facility]; Protocol Last Admin: 02/05/20 11:40 Dose: 2 u Documented by: Nutritional Formula (Lactose Free) (Ensure Enlive) 120 ml PO 4X/DAY [facility] Last Admin: 02/05/20 09:15 Dose: Not Given Documented by: Ondansetron HCl (Zofran) 4 mg IV Q8H PRN PRN PRN Reason: NAUSEA/VOMITING Senna/Docusate Sodium (Senokot-S, Joy-Colace) 2 tablet PO BID PRN PRN Reason: Constipation Sodium Chloride () 10 - 40 ml IV UD PRN PRN Reason: SALINE FLUSH Last Admin: 02/03/20 03:47 Dose: 10 ml Documented by: STROKE Vital Signs/Narrative: Vital Signs Temp Pulse Resp BP Pulse Ox 02/05/20 09:10 98.3 F 72 16 156/86 H 92 02/05/20 07:45 92 Medical Necessity - Tobacco Use Smoking Status: Never smoker Assessment/Plan All Active Problems Lactic acidosis (Acute) Septic shock (Acute) Urinary tract infection (Acute) Infectious encephalopathy (Acute) 1. Septic shock due to gram negative UTI * Urine culture E. coli. Currently on IV Rocephin. * WBC is down to 16.1. * Blood also cultured E. coli. * continue IV rocephin * 2. RICHA: resolved. Cr is down to 1.19 3. History of stroke: Has residual right-sided hemiparesis. Continue aspirin and statin. 4. Hypertension: Lisinopril on hold on account of RICHA. Blood pressure has been fairly well controlled. 5. Type 2 diabetes mellitus: On insulin sliding scale. Accu-Cheks AC at bedtime. 6. Debility: due to sepsis and previous stroke. PT./OT consult Anxiety and depression: on lexapro. DVT prophylaxis: heparin
[2020-02-05 11:50] LABS: Bedside Glucose 205 mg/dL (70-110)
--- NOTE | 2020-02-05 12:04 | CASEMGMT ---
Per therapy patient did worse today than he did yesterday. It took 2 of them to help him stand. SW spoke with patient again about SNF. He asked if he could stay another day. CATHY told him he is not going to improve that much in 1 day. He agreed to go to TCU if they have availability. CATHY called Pat in TCU and they would have a bed for patient today. CATHY notified patient and he also agreed to allow SW to notify his . CATHY called patient's and let her know plan is for TCU. She was surprised he agreed, but she is okay with this plan. HILDA HOLMAN notified physician. CATHY notified RN and security management specialist. Plan: [facility] Marci CHIN
--- NOTE | 2020-02-05 12:06 | TREXTCAR_ITS ---
- Diet 02/04/20 18:43 Diet: Cardiac: Calorie-Controlled Food consistency:: Puree Liquid Consistency:: Regular/Thin Is pt able to select menu?: Yes Diet Comments: 1:1 SUPERVISION-small bites/sips-seated upright-stop feeding when fatigued How many daily calories?: 1800 calorie - Routine Orders/Code Status Enema Type: Fleetz Enema Frequency: Daily PRN Suppository Type: Dulcolax 10mg Suppository Frequency: Daily PRN O2 Frequency: PRN - Therapies Weight Bearing: Weight bearing as tolerated Physical Therapy: Eval and Treat Occupational Therapy: Eval and Treat - Allergies/Procedures Done in Hospital Allergies/Adverse Reactions: Allergies hornet venom Allergy (Verified 02/01/20 17:32) Unknown Procedures: None - Type of Care/Length of Stay Estimated LOS: Convalescent Care Less Than 30 days Type of Care Needed: Skilled Rehab Potential: Fair Prognosis: Fair - Additional Orders/Day of Discharge Day of Discharge: 02/05/20 - Dietary and Speech Recommendations Dietitian Recommendations/Changes: Rec continue Cardiac:1800 lima controlled diet w/ texture modifications per [employer]. Continue ONS Ensure Enlive 120 ml 4x/day w/ medpass. - Follow Up Care Primary Care Physician: Miguel Foster Chi, MD [Primary Care Provider] - Please follow up with your Primary Care Physician in: 1-2 weeks
--- NOTE | 2020-02-05 12:08 | PCM.DC.SUM ---
Discharge Date and Diagnosis Date of Admission: 02/01/20 Date of Discharge: 02/05/20 - Primary Discharge Diagnosis Acute Problems: Active Problems Lactic acidosis (Acute) Septic shock (Acute) Urinary tract infection (Acute) Infectious encephalopathy (Acute) - Secondary Discharge Diagnosis Chronic Problems: Chronic Problems Left acute arterial ischemic stroke, MCA (middle cerebral artery) (Chronic) HTN (hypertension) (Chronic) HLD (hyperlipidemia) (Chronic) Diabetes mellitus, type II (Chronic) Obesity (BMI 30.0-34.9) (Chronic) Right hemiparesis (Chronic) Hospital Course and Treatment Imaging Results: Diagnostic Data Chest X-Ray 02/01/20 18:20 IMPRESSION: Normal x-ray examination of the chest. Electronically Signed: Luís Stroud MD at 18:53 EDT Tel , Service support , Renal Ultrasound 02/03/20 07:04 IMPRESSION: Mild right hydronephrosis. Diffusely thickened trabeculated bladder wall with prostatic enlargement and indentation at the bladder base. Electronically Signed: Jean Montoya, at 10:17 EDT , Service support , critical care Operations: None Procedures: None Summary of Care Provided: The patient is a 69 year old M with a past medical history as outlined was admitted through the ED on 02/01/2020 with a complaint of altered mental status. His called the EMS because he had change in mental status that he thought he may have had a stroke. Stroke alert was called upon arrival in the ED where he was found to have temperature of 103 Fahrenheit. Stroke alert was canceled at that point. He was febrile, tachycardic and had a normal blood pressure. Creatinine was 1.95 and he has significant leukocytosis. Lactic acid was 6.3. Urinalysis showed positive nitrites and leukocyte esterase with 1+ bacteria. COVID-19 test was negative and chest x-ray showed no acute infiltrate or consolidation. EKG showed sinus tachycardia. He was admitted and managed for septic shock due to UTI as well as RICHA and acute metabolic encephalopathy due to septic shock. He was admitted in the ICU and hydrated aggressively with IV fluids per septic shock protocol. He was started on IV ceftriaxone based on previous cultures. Creatinine eventually trended down to normal and patient responded to fluid resuscitation. Patient was transferred out of the ICU to the progressive care unit. His mentation gradually improved. Still however remained weak during admission and was evaluated by physical therapy and skilled for SNF. Patient was agreeable to going to the TCU. Urine culture E. coli and blood cultures also grew E. coli. Patient was discharged to TCU on 02/05/2020 with a prescription for p.o. Omnicef 300 mg twice daily for 10 days. He is to follow-up with his primary care doctor within 1 week. Patient seen and examined prior to discharge. He had no complaints and felt well. Review of systems otherwise negative. He was still very frail. Labs and vitals reviewed. Home medications reviewed and reconciled. O/E: Vital Signs Temp Pulse Resp BP Pulse Ox 98.3 F 74 16 137/66 H 95 02/05/20 14:44 02/05/20 14:44 02/05/20 14:44 02/05/20 14:44 02/05/20 14:44 [] General: Alert, Oriented x3, Cooperative, No apparent distress, Lethargic HEENT: Atraumatic, PERRLA, EOMI, Normocephalic Oral: Dry Mucosa Neck: Supple, No JVD, Negative Carotid Bruits Lungs: Clear to auscultation, Normal air movement, No rhonchi, No wheeze Cardiovascular: Regular rate, Regular Rhythm, Normal S1, Normal S2, No murmurs Abdomen: Bowel Sounds Present, Soft, Non Tender, Non-Distended, No Hepato-splenomegaly Extremities: No clubbing, No cyanosis, No edema, Capillary Refill Less than 3 Seconds Skin: No rashes, No breakdown Musculoskeletal: No Tenderness to Palpation of Joints or Extremities Neurological: - - slurred speech and residual right sided weakness from previous stroke Psych/Mental Status: Normal Affect, Appropriate, Alert and oriented to time, place, person, mood and affect Plan is for discharge to TCU today. - Physical Exam Vitals/I&O's: Vital Signs Temp Pulse Resp BP Pulse Ox 98.3 F 72 16 156/86 H 92 02/05/20 09:10 02/05/20 09:10 02/05/20 09:10 02/05/20 09:10 02/05/20 09:10 Oxygen Flow Rate (L/min) 3 Oxygen Delivery Method Room Air Weight: 189 lb 9.561 oz Body Mass Index (BMI) 24.2 Finger Stick Blood Glucose 198 Intake and Output for Last 24 Hours 02/03/20 02/04/20 02/05/20 23:59 23:59 23:59 Intake Total 2153.33 / 2153.33 3811.66 / 3811.66 935.00 / 935.00 Output Total 700 / 700 Balance 1453.33 / 1453.33 3811.66 / 3811.66 935.00 / 935.00 Microbiology Past 72 Hours 02/01/20 17:35 Blood Culture (Wb) - Venous Blood Culture - Final GNR lactose customer development representative 02/01/20 17:33 Blood Culture (Wb) - Venous Blood Culture - Final Escherichia coli 02/01/20 18:20 Urine, Catheterized Urine Culture - Final Escherichia coli Laboratory Results 02/04/20 17:00: POC Glucose 164 H 02/04/20 23:40: POC Glucose 149 H 02/05/20 05:30: WBC 10.5, RBC 4.23 L, Hgb 12.0 L, Hct 35.4 L, MCV 83.7, MCH 28.4, MCHC 33.9, RDW Std Deviation 46.9 H, RDW Coeff of Nasima 15.5 H, Plt Count 61 L, MPV 11.1, Immature Gran % (Auto) 1.200 H, Neut % (Auto) 72.7 H, Lymph % (Auto) 10.8 L, [place] % (Auto) 14.1 H, Eos % (Auto) 1.0, Baso % (Auto) 0.2, Absolute Neuts (auto) 7.6, Absolute Lymphs (auto) 1.13, Nucleated RBC % 0, Differential Comment SCANNED, Platelet Estimate MOD DEC, Anisocytosis 1+, Tear Drop Cells RARE, Ovalocytes RARE, Crenated Cell RARE, Schistocytes RARE 02/05/20 05:30: Sodium 144, Potassium 3.6, Chloride 115 H, Carbon Dioxide 24.0, Anion Gap 5, BUN 28 H, Creatinine 1.09, Estim Creat Clear Calc 69.22, Est GFR (MDRD) Af Amer 86, Est GFR (MDRD) Non-Af 71, BUN/Creatinine Ratio 25.7 H, Glucose 147 H, Calcium 7.8 L 02/05/20 05:50: POC Glucose 139 H 02/05/20 11:38: POC Glucose 205 H Current Medications Acetaminophen (Tylenol) 650 mg PO Q6H PRN PRN PRN Reason: Pain Score 1-10/Temp > 100.7 F Last Admin: 02/03/20 21:51 Dose: 650 mg Documented by: Aspirin (Ecotrin) 81 mg PO DAILY@0800 [facility] Last Admin: 02/05/20 09:15 Dose: 81 mg Documented by: Atorvastatin Calcium (Lipitor) 40 mg PO QHS [facility] Last Admin: 02/04/20 22:21 Dose: Not Given Documented by: Dextrose (D50w Syringe) 0 gm IV X1 PRN; Protocol PRN Reason: Hypoglycemia Escitalopram Oxalate (Lexapro) 10 mg PO DAILY [facility] Last Admin: 02/05/20 09:15 Dose: 10 mg Documented by: Glucagon () 1 mg IM .X1 PRN PRN Reason: Hypoglycemia Heparin Sodium (Porcine) (Heparin Na) 5,000 unit SC Q12 [facility] Last Admin: 02/05/20 09:15 Dose: 5,000 unit Documented by: Sodium Chloride () 1,000 mls @ 100 mls/hr IV .Q10H [facility] Last Infusion: 02/05/20 09:20 Dose: 100 mls/hr Documented by: Ceftriaxone Sodium 2 gm/ (Sodium Chloride) 50 mls @ 100 mls/hr IV Q24@2200 [facility] Last Infusion: 02/04/20 22:54 Dose: Infused Documented by: Sodium Chloride () 250 mls @ 15 mls/hr IV .[id number] PRN PRN Reason: Saline Flush Sodium Chloride () 250 mls @ 15 mls/hr IV .[id number] PRN PRN Reason: Additional IVPB Infusion Insulin Human Lispro (Humalog Kwikpen (Bkc)) 0 unit SC Q6 [facility]; Protocol Last Admin: 02/05/20 11:40 Dose: 2 u Documented by: Nutritional Formula (Lactose Free) (Ensure Enlive) 120 ml PO 4X/DAY [facility] Last Admin: 02/05/20 09:15 Dose: Not Given Documented by: Ondansetron HCl (Zofran) 4 mg IV Q8H PRN PRN PRN Reason: NAUSEA/VOMITING Senna/Docusate Sodium (Senokot-S, Joy-Colace) 2 tablet PO BID PRN PRN Reason: Constipation Sodium Chloride () 10 - 40 ml IV UD PRN PRN Reason: SALINE FLUSH Last Admin: 02/03/20 03:47 Dose: 10 ml Documented by: Discharge Diet: Low fat/ Low Cholesterol Discharge Activity: Return to Normal Activity Weight Bearing Status: Weight bearing as tolerated Call your doctor if you observe: Fever of 101 or Higher, Inability to urinate, Shortness of breath, Dizziness Home Medications: Medications to take at Discharge Aspirin [Aspir 81] 81 mg PO DAILY 09/08/18 Escitalopram Oxalate [Lexapro] 10 mg PO DAILY #30 tab 11/15/18 Acetaminophen [Acetaminophen Extra Strength] 1,000 mg PO Q6H PRN 04/05/19 Atorvastatin Calcium 40 mg PO QHS 02/01/20 Lisinopril [Zestril] 10 mg PO DAILY 02/01/20 Cefdinir [Omnicef [equiv]] 300 mg PO Q12H 02/05/20 Primary Care Physician: Miguel Foster Chi, MD [Primary Care Provider] - Please follow up with your Primary Care Physician in: 1-2 weeks Disposition: Correction facility Minutes spent on discharge:: 45 Patient Condition:: Fair Medical Necessity - Tobacco Use Smoking Status: Never smoker Meaningful Use Info Meaningful Use Diagnoses (Choose all that apply): None applicable Inpatient E&M: 11795 Disch Hosp
--- NOTE | 2020-02-05 14:46 | CASEMGMT ---
CATHY called patient's and let her know patient was going over to TCU right now. She thanked CATHY for the update. Plan: [facility] TCU under skilled level of care. Marci CHIN
== END 2020-02-05 15:00 | disposition skilled nursing facility (03) | DRG 871 ==
LOC: ED 19:29 → ICU 19:42 → PCU 02-03 16:05
PROVIDERS: Family Medicine; Admitting Provider Hospitalist; Emergency Provider Emergency Medicine; PCP Family Medicine Geriatric Medicine; Visit Provider Student in an Organized Health Care Education/Training Program
DX: A41.51 Sepsis due to Escherichia coli [E. coli] (principal); R65.21 Severe sepsis with septic shock; I63.9 Cerebral infarction, unspecified; G93.41 Metabolic encephalopathy; E87.2 Acidosis; G93.49 Other encephalopathy; I69.351 Hemiplegia and hemiparesis following cerebral infarction affecting right dominant side; N30.00 Acute cystitis without hematuria; N17.9 Acute kidney failure, unspecified; D69.6 Thrombocytopenia, unspecified; I10 Essential (primary) hypertension; E78.5 Hyperlipidemia, unspecified; E11.9 Type 2 diabetes mellitus without complications; E66.9 Obesity, unspecified; Z79.02 Long term (current) use of antithrombotics/antiplatelets; Z79.82 Long term (current) use of aspirin; Z79.899 Other long term (current) drug therapy; Z68.24 Body mass index [BMI] 24.0-24.9, adult; F32.9 Major depressive disorder, single episode, unspecified; F41.9 Anxiety disorder, unspecified; B96.20 Unspecified Escherichia coli [E. coli] as the cause of diseases classified elsewhere
CPT/HCPCS: 36415; 36600; 51702; 71045; 76770; 80048; 80053; 81001; 82803; 82962; 83036; 83605; 85025; 85610; 85730; 87040; 87077; 87086; 87088; 87186; 87635; 92526; 92610; 93005; 97110; 97162; 97167; 97530; 97535; 97802; 99285; G2023; J7030; J7050; A4216; J0696; U0004

== ENCOUNTER 2020-02-05 15:10 | Inpatient (IN) | payer MEDICARE, SELFPAY ==
[2020-02-01 20:30] VITALS: BMI 24.2
[2020-02-05 15:18] VITALS: BP 142/78; PULSE 70; RESP 18; TEMP 36.7; O2SAT 93; BMI 29.4
[2020-02-05 16:45] LABS: Bedside Glucose 154 mg/dL (70-110)
--- NOTE | 2020-02-05 20:36 | HP.PCM_ITS ---
Problem List (1) Debility Status: Acute (2) E. coli UTI Status: Acute (3) E coli bacteremia Status: Acute (4) Acute kidney injury Status: Acute (5) Stroke Status: Chronic (6) Dysphagia Status: Chronic (7) Diabetes mellitus Status: Chronic (8) Obstructive sleep apnea Status: Chronic (9) Depression Status: Chronic (10) HTN (hypertension) Status: Chronic Qualifiers: (11) HLD (hyperlipidemia) Status: Chronic Qualifiers: (12) Right hemiparesis Status: Chronic (13) Septic shock Status: Acute (14) Infectious encephalopathy Status: Acute History of Present Illness Date of Admission: 02/05/20 Chief Complaint: Here for rehabilitation, strengthening, prior to discharge home with . 02/01/2020 The patient is a 69 year old Male with below past medical history presented to [facility] Emergency Department with fever. 02/01/2020 EKG sinus tachycardia, left axis deviation. 02/01/2020 Chest X-ray normal. Change in mental status, came on suddenly, fever 103. Unable to speak, leaning to left, stroke alert activated, then cancelled. WBC 17.5, Cr 1.95, Lactic acid 6.3. UA consistent with Urinary Tract infection, urine culture sent. Rocephin, IV fluid bolus given. Stroke low on differential. COVID-19 negative. 02/01/2020 Admit to Hospital. Rocephin for urinary tract infection. IV Fluids, ICU for septic shock. 02/02/2020 Dr. Church recommended continuing IV antibiotics. Bolus with IV fluids for hypotension. Wean oxygen as tolerated. 02/02/2020 Encephalopathy improving. Acute kidney injury improving. 02/03/2020 Creatinine improved to baseline. Encephalopathy resolved. 02/03/2020 Renal ultrasound showed mild right hydronephrosis, diffusely thickened trabeculated bladder wall with prostate enlargement, indentation at bladder base. 02/04/2020 Urine culture growing E. Coli, on IV Rocephin. Blood culture growing E. Coli. PT/OT recommended Detention Facility for short term stay. 02/05/2020 Admit to TCU with debility, here for rehabilitation, strengthening, prior to discharge home with . Past Medical History Past Medical History (Chronic Problems): Chronic Problems Stroke (Chronic) Dysphagia (Chronic) Diabetes mellitus (Chronic) Obstructive sleep apnea (Chronic) Depression (Chronic) Left acute arterial ischemic stroke, MCA (middle cerebral artery) (Chronic) HTN (hypertension) (Chronic) HLD (hyperlipidemia) (Chronic) Diabetes mellitus, type II (Chronic) Obesity (BMI 30.0-34.9) (Chronic) Right hemiparesis (Chronic) Allergies hornet venom Allergy (Verified 02/01/20 17:32) Unknown Home Medications: Ambulatory Orders Medication Instructions Recorded Aspirin [Aspir 81] 81 mg PO DAILY 09/08/18 Escitalopram Oxalate [Lexapro] 10 mg PO DAILY #30 tab 11/15/18 Acetaminophen [Acetaminophen Extra 1,000 mg PO Q6H PRN 04/05/19 Strength] Atorvastatin Calcium 40 mg PO QHS 02/01/20 Lisinopril [Zestril] 10 mg PO DAILY 02/01/20 Cefdinir [Omnicef [equiv]] 300 mg PO Q12H 02/05/20 Surgical History: no surgical history, - Psychiatric History: Depression Lives: Spouse/ Significant Other Smoking Status: Never smoker Tobacco Use: Non-smoker Alcohol: None Drugs: None - *Family History Maternal History Items: - - Patient's mother at age 76 with history of cancer. Paternal History Items: - - Patient's father at age 66 with myocardial infarction, history of diabetes mellitus. Review of Systems Constitutional: Denies: Chills, Fever, Weight Change HEENT: Denies: Head Aches, Sinus Congestion, Sinus Drainage Cardiovascular: Denies: Chest Pain, Palpitations Respiratory: Denies: Cough, Shortness of breath at rest, Sputum production Gastrointestinal: Denies: Abdominal Pain, Nausea, Vomiting Genitourinary: Denies: Dysuria Musculoskeletal: Denies: Joint Pain, Joint Tenderness Skin: Denies: Rash, Wounds Neurological: Denies: Numbness, Tingling, Focal weakness Psychiatric: Denies: Anxiety, Depression, Homicidal Ideations, Suicidal Ideations Hematologic/ Lymphatic: Denies: Easy Bruising, Easy Bleeding VTE Information - Inpt Only VTE Present on Admission: No VTE Mechan Device Prophylaxis: Knee High ROMULO Hose VTE Pharm Prophylaxis ordered?: Yes Patient Problems: Active and Suspected Problems Debility (Acute) E. coli UTI (Acute) E coli bacteremia (Acute) Acute kidney injury (Acute) - Physical Exam Vitals/I&O's: Vital Signs Temp Pulse Resp BP Pulse Ox 98.0 F 70 18 142/78 H 93 02/05/20 15:18 02/05/20 15:18 02/05/20 15:18 02/05/20 15:18 02/05/20 15:18 Oxygen Delivery Method Room Air Weight: 93 kg Body Mass Index (BMI) 29.4 Finger Stick Blood Glucose 198 General: Alert, Oriented x3, Cooperative HEENT: Atraumatic, PERRLA, EOMI, Normocephalic Neck: Supple, No JVD, Negative Carotid Bruits Lungs: Clear to auscultation, Normal air movement Cardiovascular: Regular rate, No murmurs Abdomen: Bowel Sounds Present, Soft, Non Tender Extremities: No edema, Capillary Refill Less than 3 Seconds Skin: No rashes, No breakdown Musculoskeletal: No Tenderness to Palpation of Joints or Extremities Neurological: Cranial nerves II-XII grossly intact, - - Right hemiparesis. Psych/Mental Status: Normal Affect, Appropriate Laboratory Results 02/05/20 16:30: COVID-19 (TAMERA) Not Detected 02/05/20 16:41: POC Glucose 154 H Current Medications Acetaminophen (Tylenol) 1,000 mg PO Q6H PRN PRN PRN Reason: Pain Score 1-3/10 or Fever Aspirin (Ecotrin) 81 mg PO DAILY@0800 [facility] Atorvastatin Calcium (Lipitor) 40 mg PO QHS [facility] Bisacodyl (Dulcolax) 5 mg PO DAILY PRN PRN Reason: Constipation Calamine/Phenol (Calmoseptine Ointment) 1 applic TOPICAL 0600,2200 [facility]; Protocol Cefdinir (Omnicef [Equiv]) 300 mg PO Q12 [facility] Stop: 02/12/20 06:01 Escitalopram Oxalate (Lexapro) 10 mg PO DAILY [facility] Lisinopril (Zestril) 10 mg PO DAILY [facility] Tuberculin PPD (Tubersol, Aplisol, Ppd) 5 tu ID X1 ONE Stop: 02/06/20 10:01 Tuberculin PPD (Tubersol, Aplisol, Ppd) 5 tu ID X1 ONE Stop: 02/13/20 10:01 Assessment/Plan All Active Problems Lactic acidosis (Acute) Debility (Acute) E. coli UTI (Acute) E coli bacteremia (Acute) Acute kidney injury (Acute) Septic shock (Acute) Urinary tract infection (Acute) Infectious encephalopathy (Acute) 69 year old male with below past medical history hospitalized for septic shock secondary to E. coli urinary tract infection, complicated by encephalopathy, ac bonnie kidney injury, admitted to TCU with debility, here for rehabilitation, strengthening, prior to discharge home with . * Debility - PT/OT. * Pain - Tylenol 1000MG Q6H PRN pain (1-10) * Bowel - Miralax 17GM daily, Senna/colace 1 tablet BID, Dulcolax 10MG daily PRN. * Adult immunization - Administer Prevnar 13, Pneumovax 23, Fluzone as appropriate. * DVT prophylaxis - Lovenox 40MG SC daily. * Stroke - Aspirin 81MG daily. * Hyperlipidemia - High intensity Atorvastatin 40MG QHS. * E. Coli Urinary Tract Infection - Cefdinir 300MG Q12H thru 02/12/2020. 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 * Hypertension - Lisinopril 10MG daily. * Skin irritation - Calmoseptine BID. * Diabetes Mellitus II - Diet controlled, monitor blood sugars.
[2020-02-05] MEDS: Atorvastatin Calcium 40 MG Tablet PO (21:05)
[2020-02-05] MEDS: Cefdinir 300 MG Capsule PO (21:05)
[2020-02-05] MEDS: Menthol/Lanolin/Calamine/Znox 113 GM Tube 1 APPLIC TOPICAL (21:08)
[2020-02-05 21:26] LABS: Bedside Glucose 160 mg/dL (70-110)
[2020-02-06] MEDS: Enoxaparin 40 MG/0.4 ML Syringe SC (05:12)
[2020-02-06] MEDS: Escitalopram Oxalate 10 MG Tablet PO (05:12)
[2020-02-06] MEDS: Cefdinir 300 MG Capsule PO ×2 (05:13→17:45)
[2020-02-06] MEDS: Lisinopril 10 MG Tablet PO (05:13)
[2020-02-06] MEDS: Senna/Docusate Sodium 1 Tablet PO ×2 (05:13→17:45)
[2020-02-06 05:29] VITALS: BP 147/69; PULSE 89; RESP 18; TEMP 37.3; O2SAT 93
[2020-02-06 05:46] LABS: Absolute Lymphocyte Count 1.08 X10^3/uL (0.83-4.51); Basophil# 0.04 X10^3/uL; Basophil% 0.4 % (0-1); Eosinophil# 0.11 X10^3/uL; Hematocrit 33.1 % (40-54); Hemoglobin 10.9 g/dL (13.0-16.5); Lymphocyte # 1.08 X10^3/ul (4.0); Lymphocyte % 10.2 % (19-41); Mean Corp Hgb Conc 32.9 g/dL (32-36); Mean Corpuscular Hgb 28.2 pg (27.0-32.0); Mean Corpuscular Volume 85.5 fL (80-94); Mean Platelet Vol. 10.8 fl (6.2-12.0); Monocyte# 1.16 X10^3/uL; Monocyte% 10.9 % (0-10); NRBC Flagged by Analyzer 0 % (0-5); Neutrophil # 7.99 X10^3/uL (2.7-7.7); Neutrophil % 75.1 % (47-70); POSITIVE COUNT YES; Platelet Count 78 K/mm3 (150-450); RBC Distribution Width CV 15.6 % (11.6-14.6); RBC Distribution Width SD 48.6 fl (35.1-43.9); Red Blood Count 3.87 M/mm3 (4.6-6.2); White Blood Count 10.6 K/mm3 (4.4-11.0)
[2020-02-06 06:10] LABS: Anion Gap 7 (5-15); BUN 25 mg/dL (7-18); BUN/Creat Ratio 22.7 RATIO (10-20); Calcium,Total 7.5 mg/dL (8.5-10.1); Chloride 112 mmol/L (98-107); EST Glomerular Filtration Rate 70 mL/min (>60); Est Glom Filt Rate - Afr Amer 85 mL/min (>60); Estimated Creatinine Clearance 64.52 ml/min; Glucose 151 mg/dL (74-106); Potassium 3.5 mmol/L (3.5-5.1); Sodium Level 144 mmol/L (136-145)
[2020-02-06 06:40] LABS: Bedside Glucose 146 mg/dL (70-110)
[2020-02-06 06:46] VITALS: TEMP 36.9; O2SAT 92
[2020-02-06] MEDS: Menthol/Lanolin/Calamine/Znox 113 GM Tube 1 APPLIC TOPICAL ×2 (07:16→20:41)
[2020-02-06] MEDS: Aspirin E.C. 81 MG Tablet PO (07:47)
[2020-02-06] MEDS: Iron Polysaccharide Complex 150 MG CAPSULE PO (10:19)
[2020-02-06] MEDS: Tuberculin,Purif.prot.deriv. 50 TU/ML Vial 5 ML ID (10:21)
[2020-02-06 11:06] LABS: Bedside Glucose 166 mg/dL (70-110)
--- NOTE | 2020-02-06 13:46 | NURSING ---
was called but no answer, message left to return call.
[2020-02-06 14:01] VITALS: BP 128/65; PULSE 72; RESP 16; TEMP 36.9; O2SAT 96
--- NOTE | 2020-02-06 14:19 | PHA.CONS_ITS ---
<Dora Phillips - Last Filed: 02/06/20 14:19> Progress Note - Pharmacy Subjective: TCU Admission Objective: Allergies hornet venom Allergy (Verified 02/01/20 17:32) Unknown Current Medications Generic Name Dose Route Start Last Admin Trade Name Freq PRN Reason Stop Dose Admin Acetaminophen 1,000 mg 02/05/20 15:20 Tylenol PO Q6H PRN PRN Pain Score 1-10/10 Aspirin 81 mg 02/06/20 08:00 02/06/20 07:47 Ecotrin PO 81 mg DAILY@0800 [facility] Administration Atorvastatin Calcium 40 mg 02/05/20 22:00 02/05/20 21:05 Lipitor PO 40 mg QHS [facility] Administration Bisacodyl 10 mg 02/05/20 20:58 Dulcolax PO DAILY PRN Constipation Calamine/Phenol 1 applic 02/05/20 22:00 02/06/20 07:16 Calmoseptine Ointment TOPICAL 1 applicatio 0600,2200 [facility] Administration Protocol Cefdinir 300 mg 02/05/20 18:00 02/06/20 05:13 Omnicef [Equiv] PO 02/12/20 06:01 300 mg Q12 [facility] Administration Escitalopram Oxalate 10 mg 02/06/20 06:00 02/06/20 05:12 Lexapro PO 10 mg DAILY [facility] Administration Lisinopril 10 mg 02/06/20 06:00 02/06/20 05:13 Zestril PO 10 mg DAILY [facility] Administration Polyethylene Glycol 17 gm 02/06/20 06:00 02/06/20 05:13 Miralax PO Not Given DAILY [facility] Polysaccharide Iron Complex 150 mg 02/06/20 08:30 02/06/20 10:19 Ferrex 150 PO 150 mg DAILYCM [facility] Administration Senna/Docusate Sodium 1 tablet 02/06/20 06:00 02/06/20 05:13 Senokot-S, Joy-Colace PO 1 tablet BID [facility] Administration Tuberculin PPD 5 tu 02/13/20 10:00 Tubersol, Aplisol, Ppd ID 02/13/20 10:01 X1 ONE Problem List Debility (Acute) E. coli UTI (Acute) E coli bacteremia (Acute) Acute kidney injury (Acute) Stroke (Chronic) Dysphagia (Chronic) Diabetes mellitus (Chronic) Obstructive sleep apnea (Chronic) Depression (Chronic) Vital Signs Temp Pulse Resp BP Pulse Ox 98.5 F 72 16 128/65 H 96 02/06/20 14:01 02/06/20 14:01 02/06/20 14:01 02/06/20 14:01 02/06/20 14:01 Oxygen Flow Rate (L/min) 2 Oxygen Delivery Method Room Air Weight: 93 kg Body Mass Index (BMI) 29.4 Finger Stick Blood Glucose 198 Sodium 144 mmol/L (136-145) 02/06/20 05:10 Potassium 3.5 mmol/L (3.5-5.1) 02/06/20 05:10 Chloride 112 mmol/L (98-107) H 02/06/20 05:10 Carbon Dioxide 25.0 mmol/L (21.0-32.0) 02/06/20 05:10 Anion Gap 7 (5-15) 02/06/20 05:10 BUN 25 mg/dL (7-18) H 02/06/20 05:10 Creatinine 1.10 mg/dL (0.70-1.30) 02/06/20 05:10 Est GFR (MDRD) Af Amer 85 mL/min (>60) 02/06/20 05:10 Est GFR (MDRD) Non-Af 70 mL/min (>60) 02/06/20 05:10 BUN/Creatinine Ratio 22.7 RATIO (10-20) H 02/06/20 05:10 Glucose 151 mg/dL (74-106) H 02/06/20 05:10 Assessment/Plan: 1. Pain: acetaminophen 1000mg PO Q6H PRN pain -06/14. Please continue to monitor for increased pain and PRN usage. 2. E. coli UTI: cefdinir 300mg PO Q12H thru 02/12/2020. Please continue to monitor for urinary symptoms, WBC, fever, and renal function. 3. Stroke: aspirin 81mg PO DAILYCM. Please continue to monitor for S/S of bleeding. 4. Hyperlipidemia: atorvastatin 40mg PO QHS. Please continue to monitor for muscle pain and increased LFT's. Last lipid panel from 04/2019. 5. Hypertension: lisinopril 10mg PO daily. Please continue to monitor BP, renal function, and potassium. 6. Iron deficiency (Hgb 10.9 g/dL): Ferrex 150mg PO DAILYCM. Please continue to monitor hemoglobin and for dark stools. Psychotropic Medications: 1. Depression: escitalopram 10mg PO daily. Please see physician note regarding GDR. Unnecessary Medications: None Bowel Regimen: Miralax 17gm PO daily, senna/docusate 1T PO BID, and bisacodyl 10mg PO daily PRN constipation. Please continue to monitor for constipation and PRN usage. Date of Note:: 02/06/20 - Provider Comments Provider responsibility: Provider responsible to enter orders to implement recommendations <Miguel Foster Chi - Last Filed: 02/06/20 17:57> Progress Note - Pharmacy Subjective: [] Objective: Allergies hornet venom Allergy (Verified 02/01/20 17:32) Unknown Current Medications Generic Name Dose Route Start Last Admin Trade Name Freq PRN Reason Stop Dose Admin Acetaminophen 1,000 mg 02/05/20 15:20 Tylenol PO Q6H PRN PRN Pain Score 1-10/10 Aspirin 81 mg 02/06/20 08:00 02/06/20 07:47 Ecotrin PO 81 mg DAILY@0800 [facility] Administration Atorvastatin Calcium 40 mg 02/05/20 22:00 02/05/20 21:05 Lipitor PO 40 mg QHS [facility] Administration Bisacodyl 10 mg 02/05/20 20:58 Dulcolax PO DAILY PRN Constipation Calamine/Phenol 1 applic 02/05/20 22:00 02/06/20 07:16 Calmoseptine Ointment TOPICAL 1 applicatio 0600,2200 [facility] Administration Protocol Cefdinir 300 mg 02/05/20 18:00 02/06/20 17:45 Omnicef [Equiv] PO 02/12/20 06:01 300 mg Q12 [facility] Administration Escitalopram Oxalate 10 mg 02/06/20 06:00 02/06/20 05:12 Lexapro PO 10 mg DAILY [facility] Administration Lisinopril 10 mg 02/06/20 06:00 02/06/20 05:13 Zestril PO 10 mg DAILY [facility] Administration Polyethylene Glycol 17 gm 02/06/20 06:00 02/06/20 05:13 Miralax PO Not Given DAILY [facility] Polysaccharide Iron Complex 150 mg 02/06/20 08:30 02/06/20 10:19 Ferrex 150 PO 150 mg DAILYCM [facility] Administration Senna/Docusate Sodium 1 tablet 02/06/20 06:00 02/06/20 17:45 Senokot-S, Joy-Colace PO 1 tablet BID [facility] Administration Tuberculin PPD 5 tu 02/13/20 10:00 Tubersol, Aplisol, Ppd ID 02/13/20 10:01 X1 ONE Problem List Debility (Acute) E. coli UTI (Acute) E coli bacteremia (Acute) Acute kidney injury (Acute) Stroke (Chronic) Dysphagia (Chronic) Diabetes mellitus (Chronic) Obstructive sleep apnea (Chronic) Depression (Chronic) Vital Signs Temp Pulse Resp BP Pulse Ox 98.5 F 72 16 128/65 H 96 02/06/20 14:01 02/06/20 14:01 02/06/20 14:01 02/06/20 14:01 02/06/20 14:01 Oxygen Flow Rate (L/min) 2 Oxygen Delivery Method Room Air Weight: 93 kg Body Mass Index (BMI) 29.4 Finger Stick Blood Glucose 198 Sodium 144 mmol/L (136-145) 02/06/20 05:10 Potassium 3.5 mmol/L (3.5-5.1) 02/06/20 05:10 Chloride 112 mmol/L (98-107) H 02/06/20 05:10 Carbon Dioxide 25.0 mmol/L (21.0-32.0) 02/06/20 05:10 Anion Gap 7 (5-15) 02/06/20 05:10 BUN 25 mg/dL (7-18) H 02/06/20 05:10 Creatinine 1.10 mg/dL (0.70-1.30) 02/06/20 05:10 Est GFR (MDRD) Af Amer 85 mL/min (>60) 02/06/20 05:10 Est GFR (MDRD) Non-Af 70 mL/min (>60) 02/06/20 05:10 BUN/Creatinine Ratio 22.7 RATIO (10-20) H 02/06/20 05:10 Glucose 151 mg/dL (74-106) H 02/06/20 05:10 Assessment/Plan: Psychotropic Medications: Unnecessary Medications: Bowel Regimen: - Provider Comments Provider responsibility: Provider responsible to enter orders to implement recommendations Provider Comments to Recommendations by Pharmacy: Agree
[2020-02-06 17:01] LABS: Bedside Glucose 153 mg/dL (70-110)
[2020-02-06] MEDS: Atorvastatin Calcium 40 MG Tablet PO (20:41)
[2020-02-06 21:26] LABS: Bedside Glucose 163 mg/dL (70-110)
[2020-02-07 04:00] VITALS: BP 140/74; PULSE 70; RESP 14; TEMP 36.8; O2SAT 93
[2020-02-07] MEDS: Menthol/Lanolin/Calamine/Znox 113 GM Tube 1 APPLIC TOPICAL ×2 (05:46→20:35)
[2020-02-07] MEDS: Escitalopram Oxalate 10 MG Tablet PO ×2 (05:46→20:35)
[2020-02-07] MEDS: Cefdinir 300 MG Capsule PO ×2 (05:46→17:38)
[2020-02-07] MEDS: Senna/Docusate Sodium 1 Tablet PO ×2 (05:46→17:38)
[2020-02-07] MEDS: Lisinopril 10 MG Tablet PO (05:47)
[2020-02-07 06:16] LABS: Bedside Glucose 120 mg/dL (70-110)
[2020-02-07] MEDS: Aspirin E.C. 81 MG Tablet PO (07:48)
[2020-02-07] MEDS: Iron Polysaccharide Complex 150 MG CAPSULE PO (07:48)
[2020-02-07 10:56] LABS: Bedside Glucose 162 mg/dL (70-110)
--- NOTE | 2020-02-07 11:01 | NURSING ---
pts was called no answer line just kept ringing.
--- NOTE | 2020-02-07 11:38 | CASEMGMT ---
Social Work Discussed code status with pt. Pt confirmed DNR-CCA, no intubation. MOLST form completed and placed in chart. Mary Ornelas, DATA WAREHOUSE CONSULTANT CARTOGRAPHIC ENGINEER
[2020-02-07 13:01] VITALS: BP 141/68; PULSE 95; RESP 18; TEMP 36.4; O2SAT 94
[2020-02-07 16:55] LABS: Bedside Glucose 141 mg/dL (70-110)
[2020-02-07] MEDS: Atorvastatin Calcium 40 MG Tablet PO (20:35)
[2020-02-07 21:06] LABS: Bedside Glucose 137 mg/dL (70-110)
[2020-02-08 05:52] VITALS: BP 155/71; PULSE 68; RESP 16; TEMP 37.1; O2SAT 92
[2020-02-08] MEDS: Polyethylene Glycol 3350 17 GM PACKET PO (06:01)
[2020-02-08] MEDS: Menthol/Lanolin/Calamine/Znox 113 GM Tube 1 APPLIC TOPICAL ×2 (06:01→21:55)
[2020-02-08] MEDS: Senna/Docusate Sodium 1 Tablet PO ×2 (06:02→18:36)
[2020-02-08] MEDS: Lisinopril 10 MG Tablet PO (06:02)
[2020-02-08] MEDS: Cefdinir 300 MG Capsule PO ×2 (06:02→18:36)
[2020-02-08 06:11] LABS: Bedside Glucose 118 mg/dL (70-110)
[2020-02-08 06:19] LABS: Hematocrit 32.6 % (40-54); Hemoglobin 10.9 g/dL (13.0-16.5)
[2020-02-08] MEDS: Iron Polysaccharide Complex 150 MG CAPSULE PO (07:52)
[2020-02-08] MEDS: Aspirin E.C. 81 MG Tablet PO (07:52)
[2020-02-08 08:56] VITALS: PULSE 76; RESP 16; O2SAT 92
[2020-02-08 11:05] LABS: Bedside Glucose 163 mg/dL (70-110)
[2020-02-08 14:14] VITALS: BP 139/73; PULSE 65; RESP 15; TEMP 37; O2SAT 95
[2020-02-08] MEDS: Furosemide 40 MG Tablet PO (14:37)
[2020-02-08 17:01] LABS: Bedside Glucose 115 mg/dL (70-110)
[2020-02-08] MEDS: Atorvastatin Calcium 40 MG Tablet PO (21:50)
[2020-02-09 00:45] LABS: Bedside Glucose 114 mg/dL (70-110)
[2020-02-09 04:00] VITALS: BP 131/70; PULSE 76; RESP 118; TEMP 37; O2SAT 92
[2020-02-09] MEDS: Cefdinir 300 MG Capsule PO ×2 (05:33→17:18)
[2020-02-09] MEDS: Escitalopram Oxalate 10 MG Tablet PO (05:33)
[2020-02-09] MEDS: Furosemide 40 MG Tablet PO (05:33)
[2020-02-09] MEDS: Senna/Docusate Sodium 1 Tablet PO ×2 (05:33→17:18)
[2020-02-09] MEDS: Lisinopril 10 MG Tablet PO (05:33)
[2020-02-09] MEDS: Menthol/Lanolin/Calamine/Znox 113 GM Tube 1 APPLIC TOPICAL ×2 (05:38→19:25)
[2020-02-09 06:15] LABS: Bedside Glucose 120 mg/dL (70-110)
[2020-02-09] MEDS: Iron Polysaccharide Complex 150 MG CAPSULE PO (08:15)
[2020-02-09] MEDS: Aspirin E.C. 81 MG Tablet PO (08:15)
[2020-02-09 11:20] LABS: Bedside Glucose 172 mg/dL (70-110)
[2020-02-09 14:12] VITALS: BP 126/73; PULSE 78; RESP 18; TEMP 36.5; O2SAT 95
--- NOTE | 2020-02-09 15:58 | NURSING ---
pt stated he did not wish for any one to up date family at this time.
[2020-02-09 17:21] LABS: Bedside Glucose 134 mg/dL (70-110)
[2020-02-09] MEDS: Atorvastatin Calcium 40 MG Tablet PO (20:23)
[2020-02-09 21:31] LABS: Bedside Glucose 144 mg/dL (70-110)
[2020-02-10 04:00] VITALS: BP 139/67; PULSE 76; RESP 14; TEMP 37.1; O2SAT 95
[2020-02-10] MEDS: Escitalopram Oxalate 10 MG Tablet PO (05:27)
[2020-02-10] MEDS: Lisinopril 10 MG Tablet PO (05:27)
[2020-02-10] MEDS: Senna/Docusate Sodium 1 Tablet PO ×2 (05:27→17:18)
[2020-02-10] MEDS: Cefdinir 300 MG Capsule PO ×2 (05:27→17:18)
[2020-02-10] MEDS: Menthol/Lanolin/Calamine/Znox 113 GM Tube 1 APPLIC TOPICAL ×2 (05:27→20:57)
[2020-02-10] MEDS: Furosemide 40 MG Tablet PO (05:27)
[2020-02-10] MEDS: Nystatin Powder 15gm Bottle 1 APPLIC TOPICAL ×2 (05:30→20:58)
[2020-02-10 06:24] LABS: Anion Gap 7 (5-15); BUN 14 mg/dL (7-18); Calcium,Total 7.8 mg/dL (8.5-10.1); Chloride 105 mmol/L (98-107); Creatinine, Serum 0.61 mg/dL (0.70-1.30); EST Glomerular Filtration Rate 139 mL/min (>60); Est Glom Filt Rate - Afr Amer 168 mL/min (>60); Estimated Creatinine Clearance 70.97 ml/min; Glucose 130 mg/dL (74-106); Potassium 3.1 mmol/L (3.5-5.1); Sodium Level 141 mmol/L (136-145)
[2020-02-10 06:35] LABS: Bedside Glucose 132 mg/dL (70-110)
[2020-02-10] MEDS: Iron Polysaccharide Complex 150 MG CAPSULE PO (08:10)
[2020-02-10] MEDS: Aspirin E.C. 81 MG Tablet PO (08:10)
--- NOTE | 2020-02-10 10:48 | NURSING ---
dr garg updated on potassium level 3.1, new orders given.
[2020-02-10 11:00] VITALS: PULSE 68; RESP 18; O2SAT 96
[2020-02-10 11:25] LABS: Bedside Glucose 166 mg/dL (70-110)
--- NOTE | 2020-02-10 14:01 | PCA ---
When standing pt at chairside with other aide to assist in changing pt, pt had a very hard time following cues of bearing weight on his left side and was not working with staff to lean foward and steady own weight.
[2020-02-10 14:54] VITALS: BP 132/72; PULSE 70; RESP 18; TEMP 36.8; O2SAT 94
--- NOTE | 2020-02-10 16:06 | NURSING ---
pt stated he did not want this nurse to call family.
[2020-02-10 17:01] LABS: Bedside Glucose 101 mg/dL (70-110)
[2020-02-10] MEDS: Atorvastatin Calcium 40 MG Tablet PO (20:58)
[2020-02-10 21:20] LABS: Bedside Glucose 114 mg/dL (70-110)
[2020-02-11 04:00] VITALS: BP 151/68; PULSE 64; RESP 14; TEMP 36.2; O2SAT 92
[2020-02-11] MEDS: Senna/Docusate Sodium 1 Tablet PO ×2 (05:38→16:55)
[2020-02-11] MEDS: Furosemide 40 MG Tablet PO (05:38)
[2020-02-11] MEDS: Cefdinir 300 MG Capsule PO ×2 (05:38→16:55)
[2020-02-11] MEDS: Lisinopril 10 MG Tablet PO (05:38)
[2020-02-11] MEDS: Menthol/Lanolin/Calamine/Znox 113 GM Tube 1 APPLIC TOPICAL ×2 (05:38→20:38)
[2020-02-11] MEDS: Nystatin Powder 15gm Bottle 1 APPLIC TOPICAL ×2 (05:38→20:38)
[2020-02-11] MEDS: Escitalopram Oxalate 10 MG Tablet PO (05:38)
[2020-02-11 06:20] LABS: Bedside Glucose 110 mg/dL (70-110)
[2020-02-11] MEDS: Iron Polysaccharide Complex 150 MG CAPSULE PO (08:32)
[2020-02-11] MEDS: Aspirin E.C. 81 MG Tablet PO (08:32)
[2020-02-11 11:01] LABS: Bedside Glucose 179 mg/dL (70-110)
[2020-02-11 14:21] VITALS: BP 130/74; PULSE 72; RESP 18; TEMP 36.6; O2SAT 96
--- NOTE | 2020-02-11 16:00 | NURSING ---
Spoke with informed her pt is naqpping at this time and seems to be quite tired today.
[2020-02-11 16:55] LABS: Bedside Glucose 80 mg/dL (70-110)
[2020-02-11] MEDS: Atorvastatin Calcium 40 MG Tablet PO (20:38)
[2020-02-11 21:35] LABS: Bedside Glucose 130 mg/dL (70-110)
[2020-02-12] MEDS: Lisinopril 10 MG Tablet PO (05:30)
[2020-02-12] MEDS: Senna/Docusate Sodium 1 Tablet PO ×2 (05:30→17:09)
[2020-02-12] MEDS: Cefdinir 300 MG Capsule PO (05:30)
[2020-02-12] MEDS: Furosemide 40 MG Tablet PO (05:30)
[2020-02-12] MEDS: Menthol/Lanolin/Calamine/Znox 113 GM Tube 1 APPLIC TOPICAL ×2 (05:30→21:23)
[2020-02-12] MEDS: Escitalopram Oxalate 10 MG Tablet PO (05:30)
[2020-02-12] MEDS: Polyethylene Glycol 3350 17 GM PACKET PO (05:30)
[2020-02-12] MEDS: Nystatin Powder 15gm Bottle 1 APPLIC TOPICAL ×2 (05:31→21:22)
[2020-02-12 05:35] VITALS: BP 134/77; PULSE 65; RESP 18; TEMP 37.1; O2SAT 92
[2020-02-12 06:31] LABS: Bedside Glucose 125 mg/dL (70-110)
[2020-02-12] MEDS: Aspirin E.C. 81 MG Tablet PO (08:11)
[2020-02-12] MEDS: Iron Polysaccharide Complex 150 MG CAPSULE PO (08:11)
[2020-02-12 11:20] LABS: Bedside Glucose 255 mg/dL (70-110)
[2020-02-12 13:00] VITALS: PULSE 85; RESP 18; O2SAT 97
[2020-02-12 14:02] VITALS: BP 124/65; PULSE 74; RESP 18; TEMP 36.2; O2SAT 93
--- NOTE | 2020-02-12 15:21 | NURSING ---
patent stated he would update his .
--- NOTE | 2020-02-12 16:25 | NURSING ---
pt called in and this nurse gave update.
[2020-02-12 17:25] LABS: Bedside Glucose 144 mg/dL (70-110)
[2020-02-12] MEDS: Atorvastatin Calcium 40 MG Tablet PO (21:20)
[2020-02-12 22:16] LABS: Bedside Glucose 133 mg/dL (70-110)
[2020-02-13 04:00] VITALS: BP 154/68; PULSE 68; RESP 18; TEMP 37.1; O2SAT 93
[2020-02-13 05:44] LABS: Absolute Lymphocyte Count 2.02 X10^3/uL (0.83-4.51); Absolute Neutrophil Count 4.2 X10^3/uL (2.0-7.7); Basophil# 0.06 X10^3/uL; Basophil% 0.8 % (0-1); Eosinophil# 0.22 X10^3/uL; Lymphocyte # 2.02 X10^3/ul (4.0); Lymphocyte % 27.5 % (19-41); Mean Corp Hgb Conc 32.4 g/dL (32-36); Mean Corpuscular Hgb 28.1 pg (27.0-32.0); Mean Corpuscular Volume 86.7 fL (80-94); Mean Platelet Vol. 9.5 fl (6.2-12.0); Monocyte# 0.82 X10^3/uL; Monocyte% 11.2 % (0-10); NRBC Flagged by Analyzer 0 % (0-5); Neutrophil # 4.18 X10^3/uL (2.7-7.7); Neutrophil % 56.8 % (47-70); Platelet Count 285 K/mm3 (150-450); RBC Distribution Width CV 15.3 % (11.6-14.6); RBC Distribution Width SD 48.8 fl (35.1-43.9); Red Blood Count 3.92 M/mm3 (4.6-6.2); White Blood Count 7.4 K/mm3 (4.4-11.0)
[2020-02-13 06:13] LABS: Anion Gap 6 (5-15); BUN 13 mg/dL (7-18); BUN/Creat Ratio 19.6 RATIO (10-20); Calcium,Total 8.2 mg/dL (8.5-10.1); Chloride 105 mmol/L (98-107); Creatinine, Serum 0.66 mg/dL (0.70-1.30); EST Glomerular Filtration Rate 126 mL/min (>60); Est Glom Filt Rate - Afr Amer 152 mL/min (>60); Estimated Creatinine Clearance 70.97 ml/min; Glucose 123 mg/dL (74-106); Sodium Level 141 mmol/L (136-145)
[2020-02-13] MEDS: Senna/Docusate Sodium 1 Tablet PO ×2 (06:18→17:05)
[2020-02-13] MEDS: Menthol/Lanolin/Calamine/Znox 113 GM Tube 1 APPLIC TOPICAL ×2 (06:18→20:18)
[2020-02-13] MEDS: Furosemide 40 MG Tablet PO (06:18)
[2020-02-13] MEDS: Escitalopram Oxalate 10 MG Tablet PO (06:18)
[2020-02-13] MEDS: Lisinopril 10 MG Tablet PO (06:18)
[2020-02-13] MEDS: Nystatin Powder 15gm Bottle 1 APPLIC TOPICAL ×2 (06:19→20:19)
[2020-02-13 06:26] LABS: Bedside Glucose 116 mg/dL (70-110)
[2020-02-13] MEDS: Iron Polysaccharide Complex 150 MG CAPSULE PO (07:48)
[2020-02-13] MEDS: Aspirin E.C. 81 MG Tablet PO (07:49)
[2020-02-13] MEDS: Tuberculin,Purif.prot.deriv. 50 TU/ML Vial 5 ML ID (09:54)
--- NOTE | 2020-02-13 10:51 | CASEMGMT ---
Social Work IDT met with patient and via conference call for care plan meeting. Discussed patient's progress in therapy. Pt is mod-max x2 for bed mobility and sitting to standing,. Pt using 2lbs for strengthening, and will continue to work on endurance. Pt fatigues easily and right sided weakness. Pt is min assist for grooming, mod for UE bathing/dressing and LE dressing, max for LE bathing, max x2 for toileting, dependent x2 for toileting tasks, max x2 for arm in arm transfers. Pt has lost voice since stroke - in the morning it is stronger, but as the day progresses it turns into a whisper; however it is not painful. Pt is on a puree/thin diet, [facility] soft but fatigues with meals and remains unsafe. Pt is supervised 1:1 with meals, takes small bites/sips. ST to continue to work on strengthening exercises. Pt is on an 1800 calorie diet, intake varies. Pt is out of room isolation 02/17. Explained Medicare benefit. Recommending continued nursing and rehab as pt needs to be more independent to return home successfully with . Pt was receiving daily nonskilled aides from [facility] - which will be restarted at [place]. Will continue to follow. ELSY Jin
--- NOTE | 2020-02-13 11:02 | NURSING ---
call made to and answered her questions.
[2020-02-13 11:16] LABS: Bedside Glucose 175 mg/dL (70-110)
--- NOTE | 2020-02-13 11:45 | ST ---
Called and spoke to the patient's , Fabiola to update on pt's progress, ST goals, and current diet. Answered 's questions regarding rationale behind puree textures and failed trials of mechanical soft textures during meal analysis. Instructed on compensatory strategies for treatment of pt's voice (i.e. whisper) with emphasis on breath support. Pt's verbalizes understanding.
[2020-02-13 14:26] VITALS: BP 127/69; PULSE 76; RESP 16; TEMP 36.8; O2SAT 98
--- NOTE | 2020-02-13 15:37 | PCA ---
rounded on pt at 15:00 with other aide offered to toilet pt since it had been a few hours, pt refused offer to go to the restroom other aide and i stood patient up from recliner in place with walker, pt would not stand up tall to help staff relieve the weight from not standing up he began passing stool on the floor and all over the chair.
[2020-02-13 17:26] LABS: Bedside Glucose 102 mg/dL (70-110)
[2020-02-13 20:10] VITALS: PULSE 63; RESP 18; O2SAT 95
[2020-02-13] MEDS: Atorvastatin Calcium 40 MG Tablet PO (20:15)
[2020-02-13 21:46] LABS: Bedside Glucose 166 mg/dL (70-110)
[2020-02-14 04:00] VITALS: BP 105/61; PULSE 67; RESP 18; TEMP 37; O2SAT 97
[2020-02-14] MEDS: Nystatin Powder 15gm Bottle 1 APPLIC TOPICAL ×2 (05:42→19:46)
[2020-02-14] MEDS: Menthol/Lanolin/Calamine/Znox 113 GM Tube 1 APPLIC TOPICAL ×2 (05:42→19:53)
[2020-02-14] MEDS: Furosemide 40 MG Tablet PO (05:43)
[2020-02-14] MEDS: Senna/Docusate Sodium 1 Tablet PO ×2 (05:43→17:21)
[2020-02-14] MEDS: Escitalopram Oxalate 10 MG Tablet PO (05:43)
[2020-02-14] MEDS: Lisinopril 10 MG Tablet PO (05:44)
[2020-02-14] MEDS: Polyethylene Glycol 3350 17 GM PACKET PO (05:46)
[2020-02-14 06:31] LABS: Bedside Glucose 119 mg/dL (70-110)
[2020-02-14] MEDS: Aspirin E.C. 81 MG Tablet PO (07:58)
[2020-02-14] MEDS: Iron Polysaccharide Complex 150 MG CAPSULE PO (07:58)
[2020-02-14 09:35] VITALS: PULSE 83; RESP 16; O2SAT 96
--- NOTE | 2020-02-14 10:40 | MDS.RN ---
Information for the mds was obtained from review of the clinical record, interview of resident, staff, and direct observation of resident's care.
[2020-02-14 10:56] LABS: Bedside Glucose 220 mg/dL (70-110)
[2020-02-14 14:15] VITALS: BP 111/53; PULSE 61; RESP 16; TEMP 35.9; O2SAT 93
[2020-02-14 16:10] LABS: Bedside Glucose 107 mg/dL (70-110)
[2020-02-14] MEDS: Atorvastatin Calcium 40 MG Tablet PO (19:45)
[2020-02-14 21:11] LABS: Bedside Glucose 204 mg/dL (70-110)
[2020-02-15 04:00] VITALS: BP 140/79; PULSE 68; RESP 18; TEMP 36.6; O2SAT 95
[2020-02-15] MEDS: Furosemide 40 MG Tablet PO (06:09)
[2020-02-15] MEDS: Menthol/Lanolin/Calamine/Znox 113 GM Tube 1 APPLIC TOPICAL ×2 (06:10→20:14)
[2020-02-15] MEDS: Senna/Docusate Sodium 1 Tablet PO ×2 (06:10→18:09)
[2020-02-15] MEDS: Escitalopram Oxalate 10 MG Tablet PO (06:10)
[2020-02-15] MEDS: Lisinopril 10 MG Tablet PO (06:10)
[2020-02-15] MEDS: Nystatin Powder 15gm Bottle 1 APPLIC TOPICAL ×2 (06:13→20:13)
[2020-02-15 06:15] LABS: Bedside Glucose 119 mg/dL (70-110)
[2020-02-15] MEDS: Iron Polysaccharide Complex 150 MG CAPSULE PO (07:52)
[2020-02-15] MEDS: Aspirin E.C. 81 MG Tablet PO (07:52)
--- NOTE | 2020-02-15 09:12 | NURSING ---
Upon entering room to administer morning medications pt was observed sitting in his recliner chair. When asked how pt was doing this morning he stated not good because he was uncomfortable, this nurse repositioned pt per request and put the legs to the recliner down so his feet were resting on the floor. This nurse tried to help the pt sit back further in the chair but was unsuccessful, pt stating I can't do it. This nurse turned local combination truck driver light to gain assistance from other staff, pt then began yelling at this nurse stating Can't you see I should be back further in my chair what is wrong with you, put me back there. This nurse explained to pt that she was waiting on a fellow staff member to come assist them. Pt still was upset that this nurse could not reposition him without assistance and continued to yell. METAL POLISHER came in and pt was successfully pulled back into his recliner. METAL POLISHER also brought in his breakfast tray and asked pt if he was able to help lift his legs so the tray table could be positioned in front of him so he could eat. Pt stated he couldn't. METAL POLISHER began to help pt lift his legs and pt again started yelling at staff and became irate, 1:1 given and pt was redirected, outcome was effective, resident did calm down.
--- NOTE | 2020-02-15 09:31 | NURSING ---
Attempted to call for update but no answer, phone just kept ringing, no option to leave message
[2020-02-15 11:11] LABS: Bedside Glucose 197 mg/dL (70-110)
[2020-02-15 14:28] VITALS: BP 125/74; PULSE 84; RESP 18; TEMP 36.3; O2SAT 97
[2020-02-15 16:51] LABS: Bedside Glucose 105 mg/dL (70-110)
[2020-02-15 20:00] VITALS: PULSE 75; RESP 16; O2SAT 96
[2020-02-15] MEDS: Atorvastatin Calcium 40 MG Tablet PO (20:11)
[2020-02-15 21:45] LABS: Bedside Glucose 195 mg/dL (70-110)
[2020-02-16] MEDS: Furosemide 40 MG Tablet PO (06:09)
[2020-02-16] MEDS: Senna/Docusate Sodium 1 Tablet PO ×2 (06:09→16:55)
[2020-02-16] MEDS: Escitalopram Oxalate 10 MG Tablet PO (06:09)
[2020-02-16] MEDS: Lisinopril 10 MG Tablet PO (06:09)
[2020-02-16] MEDS: Nystatin Powder 15gm Bottle 1 APPLIC TOPICAL ×2 (06:10→20:18)
[2020-02-16 06:11] LABS: Bedside Glucose 129 mg/dL (70-110)
[2020-02-16 06:13] VITALS: BP 132/78; PULSE 70; RESP 16; TEMP 36.6; O2SAT 95
[2020-02-16] MEDS: Menthol/Lanolin/Calamine/Znox 113 GM Tube 1 APPLIC TOPICAL ×2 (06:14→20:18)
[2020-02-16] MEDS: Iron Polysaccharide Complex 150 MG CAPSULE PO (07:16)
[2020-02-16] MEDS: Aspirin E.C. 81 MG Tablet PO (07:16)
[2020-02-16 11:16] LABS: Bedside Glucose 126 mg/dL (70-110)
[2020-02-16 14:26] VITALS: BP 109/61; PULSE 73; RESP 16; TEMP 36.7; O2SAT 91
[2020-02-16 17:09] VITALS: PULSE 75; RESP 18; O2SAT 95
[2020-02-16 17:16] LABS: Bedside Glucose 115 mg/dL (70-110)
[2020-02-16] MEDS: Atorvastatin Calcium 40 MG Tablet PO (20:14)
[2020-02-16 21:36] LABS: Bedside Glucose 159 mg/dL (70-110)
[2020-02-17] MEDS: Nystatin Powder 15gm Bottle 1 APPLIC TOPICAL ×2 (05:57→20:22)
[2020-02-17] MEDS: Escitalopram Oxalate 10 MG Tablet PO (05:57)
[2020-02-17] MEDS: Lisinopril 10 MG Tablet PO (05:57)
[2020-02-17] MEDS: Menthol/Lanolin/Calamine/Znox 113 GM Tube 1 APPLIC TOPICAL ×2 (05:57→20:21)
[2020-02-17 06:01] VITALS: BP 122/69; PULSE 66; RESP 16; TEMP 36.6; O2SAT 94
[2020-02-17 06:21] LABS: Bedside Glucose 138 mg/dL (70-110)
[2020-02-17] MEDS: Iron Polysaccharide Complex 150 MG CAPSULE PO (08:25)
[2020-02-17] MEDS: Aspirin E.C. 81 MG Tablet PO (08:25)
[2020-02-17 11:16] LABS: Bedside Glucose 172 mg/dL (70-110)
[2020-02-17 15:45] VITALS: BP 112/66; PULSE 71; RESP 14; TEMP 36.3; O2SAT 96
[2020-02-17 17:11] LABS: Bedside Glucose 116 mg/dL (70-110)
[2020-02-17] MEDS: Senna/Docusate Sodium 1 Tablet PO (17:47)
[2020-02-17] MEDS: Atorvastatin Calcium 40 MG Tablet PO (20:21)
[2020-02-17 21:16] LABS: Bedside Glucose 218 mg/dL (70-110)
[2020-02-18 04:00] VITALS: BP 106/64; PULSE 75; RESP 16; TEMP 36.7; O2SAT 96
[2020-02-18] MEDS: Senna/Docusate Sodium 1 Tablet PO ×2 (06:11→17:12)
[2020-02-18] MEDS: Menthol/Lanolin/Calamine/Znox 113 GM Tube 1 APPLIC TOPICAL ×2 (06:11→20:30)
[2020-02-18] MEDS: Nystatin Powder 15gm Bottle 1 APPLIC TOPICAL ×2 (06:11→20:29)
[2020-02-18] MEDS: Polyethylene Glycol 3350 17 GM PACKET PO (06:11)
[2020-02-18] MEDS: Lisinopril 10 MG Tablet PO (06:11)
[2020-02-18] MEDS: Escitalopram Oxalate 10 MG Tablet PO (06:11)
[2020-02-18 06:26] LABS: Bedside Glucose 142 mg/dL (70-110)
[2020-02-18] MEDS: Aspirin E.C. 81 MG Tablet PO (08:42)
[2020-02-18] MEDS: Iron Polysaccharide Complex 150 MG CAPSULE PO (08:42)
[2020-02-18 11:16] LABS: Bedside Glucose 195 mg/dL (70-110)
--- NOTE | 2020-02-18 11:53 | NURSING ---
wound photo: left buttock
[2020-02-18 13:00] VITALS: PULSE 74; RESP 18; O2SAT 93
[2020-02-18 14:14] VITALS: BP 100/54; PULSE 77; RESP 18; TEMP 36.5; O2SAT 18
--- NOTE | 2020-02-18 16:16 | NURSING ---
Called pt and gave update. also asking about his therapy being canceled. this nurse stated i did not know any thing about that and therapy would be able to answer that question. Transferred to therapy.
[2020-02-18 16:56] LABS: Bedside Glucose 116 mg/dL (70-110)
[2020-02-18] MEDS: Atorvastatin Calcium 40 MG Tablet PO (20:29)
[2020-02-18 21:36] LABS: Bedside Glucose 123 mg/dL (70-110)
[2020-02-19] MEDS: Menthol/Lanolin/Calamine/Znox 113 GM Tube 1 APPLIC TOPICAL ×2 (04:33→20:38)
[2020-02-19] MEDS: Polyethylene Glycol 3350 17 GM PACKET PO (04:34)
[2020-02-19] MEDS: Lisinopril 10 MG Tablet PO ×2 (04:35)
[2020-02-19] MEDS: Senna/Docusate Sodium 1 Tablet PO ×2 (04:35→16:41)
[2020-02-19] MEDS: Escitalopram Oxalate 10 MG Tablet PO (04:35)
[2020-02-19] MEDS: Nystatin Powder 15gm Bottle 1 APPLIC TOPICAL ×2 (04:36→20:38)
[2020-02-19 04:48] VITALS: BP 112/59; PULSE 80; RESP 16; TEMP 36.8; O2SAT 93
[2020-02-19 06:16] LABS: Bedside Glucose 130 mg/dL (70-110)
[2020-02-19] MEDS: Aspirin E.C. 81 MG Tablet PO (08:21)
[2020-02-19] MEDS: Iron Polysaccharide Complex 150 MG CAPSULE PO (08:21)
[2020-02-19 11:10] LABS: Bedside Glucose 146 mg/dL (70-110)
[2020-02-19 14:30] VITALS: BP 110/54; PULSE 77; RESP 16; TEMP 36.3; O2SAT 99
--- NOTE | 2020-02-19 16:10 | PCA ---
I offered patient to reposition in the bed but he refused and wanted to stay laying on his back.
--- NOTE | 2020-02-19 16:12 | NURSING ---
PT STATED HE DID NOT WANT ME TO CALL THAT HE WOULD TALK TO HER.
[2020-02-19 17:10] LABS: Bedside Glucose 51 mg/dL (70-110)
--- NOTE | 2020-02-19 17:42 | NURSING ---
blood sugar 51, oj given. will recheck. rn aware
[2020-02-19 18:26] LABS: Bedside Glucose 168 mg/dL (70-110)
[2020-02-19 20:35] VITALS: PULSE 63; RESP 16; O2SAT 96
[2020-02-19] MEDS: Atorvastatin Calcium 40 MG Tablet PO (20:37)
[2020-02-19 21:31] LABS: Bedside Glucose 168 mg/dL (70-110)
[2020-02-20 04:00] VITALS: BP 107/71; PULSE 80; RESP 16; TEMP 36.8; O2SAT 94
[2020-02-20 05:54] LABS: Absolute Neutrophil Count 2.9 X10^3/uL (2.0-7.7); Basophil# 0.07 X10^3/uL; Basophil% 1.2 % (0-1); Eosinophil# 0.16 X10^3/uL; Eosinophils% 2.6 % (0-5); Hematocrit 38.5 % (40-54); Hemoglobin 12.4 g/dL (13.0-16.5); Mean Corp Hgb Conc 32.2 g/dL (32-36); Mean Corpuscular Hgb 28.6 pg (27.0-32.0); Mean Corpuscular Volume 88.9 fL (80-94); Mean Platelet Vol. 9.5 fl (6.2-12.0); Monocyte% 9.9 % (0-10); NRBC Flagged by Analyzer 0 % (0-5); Neutrophil # 2.89 X10^3/uL (2.7-7.7); Neutrophil % 47.8 % (47-70); Platelet Count 359 K/mm3 (150-450); RBC Distribution Width CV 15.1 % (11.6-14.6); RBC Distribution Width SD 49.7 fl (35.1-43.9); Red Blood Count 4.33 M/mm3 (4.6-6.2); White Blood Count 6.1 K/mm3 (4.4-11.0)
[2020-02-20] MEDS: Senna/Docusate Sodium 1 Tablet PO ×2 (06:16→17:35)
[2020-02-20] MEDS: Nystatin Powder 15gm Bottle 1 APPLIC TOPICAL ×2 (06:16→20:04)
[2020-02-20] MEDS: Escitalopram Oxalate 10 MG Tablet PO (06:16)
[2020-02-20] MEDS: Menthol/Lanolin/Calamine/Znox 113 GM Tube 1 APPLIC TOPICAL ×2 (06:16→20:04)
[2020-02-20 06:22] LABS: Anion Gap 6 (5-15); BUN 17 mg/dL (7-18); BUN/Creat Ratio 22.5 RATIO (10-20); Calcium,Total 8.7 mg/dL (8.5-10.1); Chloride 103 mmol/L (98-107); Creatinine, Serum 0.76 mg/dL (0.70-1.30); EST Glomerular Filtration Rate 108 mL/min (>60); Est Glom Filt Rate - Afr Amer 131 mL/min (>60); Estimated Creatinine Clearance 70.97 ml/min; Glucose 111 mg/dL (74-106); Potassium 4.6 mmol/L (3.5-5.1); Sodium Level 140 mmol/L (136-145)
[2020-02-20 06:26] LABS: Bedside Glucose 128 mg/dL (70-110)
[2020-02-20] MEDS: Iron Polysaccharide Complex 150 MG CAPSULE PO (08:28)
[2020-02-20] MEDS: Aspirin E.C. 81 MG Tablet PO (08:28)
[2020-02-20 09:19] VITALS: PULSE 96; RESP 16; O2SAT 96
[2020-02-20 11:16] LABS: Bedside Glucose 148 mg/dL (70-110)
[2020-02-20 14:14] VITALS: BP 122/75; PULSE 77; RESP 18; TEMP 36.7; O2SAT 97
[2020-02-20] MEDS: Atorvastatin Calcium 40 MG Tablet PO (19:59)
[2020-02-20 21:31] LABS: Bedside Glucose 136 mg/dL (70-110)
[2020-02-21 06:16] LABS: Bedside Glucose 122 mg/dL (70-110)
[2020-02-21] MEDS: Nystatin Powder 15gm Bottle 1 APPLIC TOPICAL ×2 (06:39→22:10)
[2020-02-21] MEDS: Senna/Docusate Sodium 1 Tablet PO ×2 (06:39→17:29)
[2020-02-21] MEDS: Escitalopram Oxalate 10 MG Tablet PO (06:39)
[2020-02-21] MEDS: Lisinopril 10 MG Tablet PO (06:39)
[2020-02-21] MEDS: Menthol/Lanolin/Calamine/Znox 113 GM Tube 1 APPLIC TOPICAL ×2 (06:41→22:10)
[2020-02-21 07:24] VITALS: BP 114/53; PULSE 82; RESP 16; TEMP 36.4; O2SAT 93
[2020-02-21] MEDS: Iron Polysaccharide Complex 150 MG CAPSULE PO (08:02)
[2020-02-21] MEDS: Aspirin E.C. 81 MG Tablet PO (08:02)
[2020-02-21 11:36] LABS: Bedside Glucose 150 mg/dL (70-110)
--- NOTE | 2020-02-21 14:09 | CASEMGMT ---
Social Work Spoke with to discuss therapy family training outcome and DC plans. stated pt has returned to baseline and can assist with needs. agreeable to DC 02/24 as that is pt's and does not have secondary insurance. will restart nonskilled HHC services with [facility] and would like skilled [facility] HHC. Referral made to [facility] PT/OT/ST/SN. No DME needs. Plan: DC home 02/24 with , [facility] PT/OT/ST/SN. No DME needs. Mary Ornelas, ELSY YARD SUPERVISOR
[2020-02-21 14:11] VITALS: BP 109/63; PULSE 82; RESP 18; TEMP 36.4; O2SAT 97
[2020-02-21 16:41] LABS: Bedside Glucose 103 mg/dL (70-110)
--- NOTE | 2020-02-21 20:26 | DCINST_ITS ---
- Discharge Diagnoses Current Active Problems: Current Active and Chronic Problems Debility (Acute) E. coli UTI (Acute) E coli bacteremia (Acute) Acute kidney injury (Acute) Stroke (Chronic) Dysphagia (Chronic) Diabetes mellitus (Chronic) Obstructive sleep apnea (Chronic) Depression (Chronic) You will use the following diet at home:: No restrictions, Regular Your food should be the consistency of: Puree Your liquids should be the consistency of: Regular/Thin Discharge Activity: Return to Normal Activity, May Shower, Use Walker Weight Bearing Status: Weight bearing as tolerated Call your doctor if you observe: Fever of 101 or Higher, Inability to urinate, Inability to have a bowel movement, Shortness of breath, Chest pain, Uncontrolled pain Allergies/Adverse Reactions: Allergies hornet venom Allergy (Verified 02/01/20 17:32) Unknown Medications to take at Discharge Aspirin [Aspir 81] 81 mg PO DAILY 09/08/18 Escitalopram Oxalate [Lexapro] 10 mg PO DAILY #30 tab 11/15/18 Acetaminophen [Acetaminophen Extra Strength] 1,000 mg PO Q6H PRN 04/05/19 Atorvastatin Calcium 40 mg PO QHS 02/01/20 Iron Polysaccharide Complex [Ferrex 150] 150 mg PO DAILYCM #30 cap 02/21/20 Lisinopril [Zestril] 10 mg PO DAILY #30 tab 02/21/20 Menthol/Lanolin/Calamine/Znox [Calmoseptine Ointment] 1 applic TOPICAL 0600,2200 tube 02/21/20 Nystatin Powder [Mycostatin Powder] 1 applic TOPICAL 0600,2200 bottle 02/21/20 The following prescriptions were given: Iron Polysaccharide Complex [Ferrex 150] 150 mg PO DAILYCM #30 cap Transmission Status: Pending to [id number] Lisinopril [Zestril] 10 mg PO DAILY #30 tab Transmission Status: Pending to [id number] Primary Care Physician: Miguel Foster Chi, MD [Primary Care Provider] - Please follow up with your Primary Care Physician in: 1 week. Test Results: Test results from this visit will be discussed in further detail at your follow- up appointment, if applicable. Proposed Discharge Date: 02/25/20
--- NOTE | 2020-02-21 20:28 | DS.PCM_ITS ---
Discharge Date and Diagnosis - Problem List Patient Problems: Active and Suspected Problems Debility (Acute) E. coli UTI (Acute) E coli bacteremia (Acute) Acute kidney injury (Acute) Date of Admission: 02/05/20 Date of Discharge: 02/25/20 - Primary Discharge Diagnosis Acute Problems: Active Problems Debility (Acute) E. coli UTI (Acute) E coli bacteremia (Acute) Acute kidney injury (Acute) - Secondary Discharge Diagnosis Chronic Problems: Chronic Problems Stroke (Chronic) Dysphagia (Chronic) Diabetes mellitus (Chronic) Obstructive sleep apnea (Chronic) Depression (Chronic) Left acute arterial ischemic stroke, MCA (middle cerebral artery) (Chronic) HTN (hypertension) (Chronic) HLD (hyperlipidemia) (Chronic) Diabetes mellitus, type II (Chronic) Obesity (BMI 30.0-34.9) (Chronic) Right hemiparesis (Chronic) Hospital Course and Treatment Imaging Results: 02/05/20 Dinner Diet: Calorie Controlled Food consistency:: Puree Liquid Consistency:: Regular/Thin Is pt able to select menu?: Yes Diet Comments: 1:1 supervision-small bites/sips-seated upright-stop feeding when fatigued How many daily calories?: 1800 calorie Labs (Last 48 Hours) 02/19/20 02/20/20 02/20/20 21:13 05:15 05:15 WBC 6.1 RBC 4.33 L Hgb 12.4 L Hct 38.5 L MCV 88.9 MCH 28.6 MCHC 32.2 RDW Std Deviation 49.7 H RDW Coeff of Nasima 15.1 H Plt Count 359 MPV 9.5 Immature Gran % (Auto) 0.500 Neut % (Auto) 47.8 Lymph % (Auto) 38.0 [place] % (Auto) 9.9 Eos % (Auto) 2.6 Baso % (Auto) 1.2 H Absolute Neuts (auto) 2.9 Absolute Lymphs (auto) 2.30 Nucleated RBC % 0 Sodium 140 Potassium 4.6 Chloride 103 Carbon Dioxide 31.0 Anion Gap 6 BUN 17 Creatinine 0.76 Estim Creat Clear Calc 70.97 Est GFR (MDRD) Af Amer 131 Est GFR (MDRD) Non-Af 108 BUN/Creatinine Ratio 22.5 H Glucose 111 H Calcium 8.7 POC Glucose 168 H 02/20/20 02/20/20 02/20/20 06:09 11:04 21:13 WBC RBC Hgb Hct MCV MCH MCHC RDW Std Deviation RDW Coeff of Nasima Plt Count MPV Immature Gran % (Auto) Neut % (Auto) Lymph % (Auto) [place] % (Auto) Eos % (Auto) Baso % (Auto) Absolute Neuts (auto) Absolute Lymphs (auto) Nucleated RBC % Sodium Potassium Chloride Carbon Dioxide Anion Gap BUN Creatinine Estim Creat Clear Calc Est GFR (MDRD) Af Amer Est GFR (MDRD) Non-Af BUN/Creatinine Ratio Glucose Calcium POC Glucose 128 H 148 H 136 H 02/21/20 02/21/20 02/21/20 06:02 11:18 16:33 WBC RBC Hgb Hct MCV MCH MCHC RDW Std Deviation RDW Coeff of Nasima Plt Count MPV Immature Gran % (Auto) Neut % (Auto) Lymph % (Auto) [place] % (Auto) Eos % (Auto) Baso % (Auto) Absolute Neuts (auto) Absolute Lymphs (auto) Nucleated RBC % Sodium Potassium Chloride Carbon Dioxide Anion Gap BUN Creatinine Estim Creat Clear Calc Est GFR (MDRD) Af Amer Est GFR (MDRD) Non-Af BUN/Creatinine Ratio Glucose Calcium POC Glucose 122 H 150 H 103 Consultations 02/17/20 07:10 Consult: Onc/Wound/egg and spice mixer Routine Comment: Reason for Consult:: pressure injury to coccyx Operations: None Procedures: None Summary of Care Provided: The patient is a 69 year old Male with below past medical history hospitalized for septic shock secondary to E. coli urinary tract infection, complicated by encephalopathy, acute kidney injury, admitted to TCU with debility, here for rehabilitation, strengthening, prior to discharge home with . Resident more grumpy than usual, consider increasing escitalopram from 10MG to 20MG daily. Discharge home with , [facility] PT/OT/ST/SN, no durable medical equipment needs. Patient Problems: Active and Suspected Problems Debility (Acute) E. coli UTI (Acute) E coli bacteremia (Acute) Acute kidney injury (Acute) - Physical Exam Vitals/I&O's: Vital Signs Temp Pulse Resp BP Pulse Ox 97.6 F L 82 18 109/63 97 02/21/20 14:11 02/21/20 14:11 02/21/20 14:11 02/21/20 14:11 02/21/20 14:11 Oxygen Flow Rate (L/min) 2 Oxygen Delivery Method Room Air Weight: 76.8 kg Body Mass Index (BMI) 29.4 Finger Stick Blood Glucose 198 Intake and Output for Last 24 Hours 02/19/20 02/20/20 02/21/20 23:59 23:59 23:59 Intake Total 820 / 820 840 / 840 600 / 600 Balance 820 / 820 840 / 840 600 / 600 Laboratory Results 02/20/20 21:13: POC Glucose 136 H 02/21/20 06:02: POC Glucose 122 H 02/21/20 11:18: POC Glucose 150 H 02/21/20 16:33: POC Glucose 103 Current Medications Acetaminophen (Tylenol) 1,000 mg PO Q6H PRN PRN PRN Reason: Pain Score 1-10/10 Aspirin (Ecotrin) 81 mg PO DAILY@0800 [facility] Last Admin: 02/21/20 08:02 Dose: 81 mg Documented by: Atorvastatin Calcium (Lipitor) 40 mg PO QHS [facility] Last Admin: 02/20/20 19:59 Dose: 40 mg Documented by: Bisacodyl (Dulcolax) 10 mg PO DAILY PRN PRN Reason: Constipation Calamine/Phenol (Calmoseptine Ointment) 1 applic TOPICAL 0600,2200 [facility]; Protocol Last Admin: 02/21/20 06:41 Dose: 1 applicatio Documented by: Escitalopram Oxalate (Lexapro) 10 mg PO DAILY [facility] Last Admin: 02/21/20 06:39 Dose: 10 mg Documented by: Lisinopril (Zestril) 10 mg PO DAILY [facility] Last Admin: 02/21/20 06:39 Dose: 10 mg Documented by: Nystatin (Mycostatin Powder) 1 applic TOPICAL 0600,2200 [facility]; Protocol Last Admin: 02/21/20 06:39 Dose: 1 applicatio Documented by: Polyethylene Glycol (Miralax) 17 gm PO DAILY [facility] Last Admin: 02/21/20 06:39 Dose: Not Given Documented by: Polysaccharide Iron Complex (Ferrex 150) 150 mg PO DAILYCM [facility] Last Admin: 02/21/20 08:02 Dose: 150 mg Documented by: Senna/Docusate Sodium (Senokot-S, Joy-Colace) 1 tablet PO BID [facility] Last Admin: 02/21/20 17:29 Dose: 1 tablet Documented by: Discharge Diet: No Restrictions, Swallowing Precautions, - - Pureed texture. Discharge Activity: Return to Normal Activity, May Shower, Use Walker Weight Bearing Status: Weight bearing as tolerated Call your doctor if you observe: Fever of 101 or Higher, Inability to urinate, Inability to have a bowel movement, Shortness of breath, Chest pain, Uncontrolled pain Home Medications: Medications to take at Discharge Aspirin [Aspir 81] 81 mg PO DAILY 09/08/18 Escitalopram Oxalate [Lexapro] 10 mg PO DAILY #30 tab 11/15/18 Acetaminophen [Acetaminophen Extra Strength] 1,000 mg PO Q6H PRN 04/05/19 Atorvastatin Calcium 40 mg PO QHS 02/01/20 Iron Polysaccharide Complex [Ferrex 150] 150 mg PO DAILYCM #30 cap 02/21/20 Lisinopril [Zestril] 10 mg PO DAILY #30 tab 02/21/20 Menthol/Lanolin/Calamine/Znox [Calmoseptine Ointment] 1 applic TOPICAL 0600,2200 tube 02/21/20 Nystatin Powder [Mycostatin Powder] 1 applic TOPICAL 0600,2200 bottle 02/21/20 Following Prescrptions Were Given to Patient: Iron Polysaccharide Complex [Ferrex 150] 150 mg PO DAILYCM #30 cap [id number] Lisinopril [Zestril] 10 mg PO DAILY #30 tab [facility]: [id number] Primary Care Physician: Miguel Foster Chi, MD [Primary Care Provider] - Please follow up with your Primary Care Physician in: 1 week. Disposition: Home with Home Health Minutes spent on discharge:: 35 Patient Condition:: Stable Medical Necessity - Tobacco Use Smoking Status: Never smoker Tobacco Use: Non-smoker Meaningful Use Info Meaningful Use Diagnoses (Choose all that apply): None applicable
[2020-02-21 21:35] LABS: Bedside Glucose 115 mg/dL (70-110)
[2020-02-21] MEDS: Atorvastatin Calcium 40 MG Tablet PO (22:10)
[2020-02-21 22:16] LABS: Bedside Glucose 135 mg/dL (70-110)
[2020-02-22] MEDS: Senna/Docusate Sodium 1 Tablet PO ×2 (06:04→18:02)
[2020-02-22] MEDS: Escitalopram Oxalate 10 MG Tablet PO (06:04)
[2020-02-22] MEDS: Lisinopril 10 MG Tablet PO (06:04)
[2020-02-22] MEDS: Nystatin Powder 15gm Bottle 1 APPLIC TOPICAL ×2 (06:05→20:36)
[2020-02-22] MEDS: Menthol/Lanolin/Calamine/Znox 113 GM Tube 1 APPLIC TOPICAL ×2 (06:05→20:36)
[2020-02-22 06:10] VITALS: BP 100/58; PULSE 74; RESP 16; TEMP 36.8; O2SAT 93
[2020-02-22 06:41] LABS: Bedside Glucose 121 mg/dL (70-110)
[2020-02-22] MEDS: Iron Polysaccharide Complex 150 MG CAPSULE PO (08:46)
[2020-02-22] MEDS: Aspirin E.C. 81 MG Tablet PO (08:46)
[2020-02-22 10:00] VITALS: PULSE 60; RESP 18; O2SAT 95
[2020-02-22 11:36] LABS: Bedside Glucose 119 mg/dL (70-110)
[2020-02-22 14:44] VITALS: BP 116/72; PULSE 74; RESP 18; TEMP 36.7; O2SAT 95
[2020-02-22 16:50] LABS: Bedside Glucose 110 mg/dL (70-110)
--- NOTE | 2020-02-22 17:08 | NURSING ---
PT LET THIS NURSE TURN HIM ON HIS SIDE TO GET OFF HIS BOTTOM.
[2020-02-22] MEDS: Atorvastatin Calcium 40 MG Tablet PO (20:37)
[2020-02-22 23:26] LABS: Bedside Glucose 122 mg/dL (70-110)
[2020-02-23 04:00] VITALS: BP 118/70; PULSE 76; RESP 17; TEMP 36.9; O2SAT 93
[2020-02-23] MEDS: Senna/Docusate Sodium 1 Tablet PO ×2 (05:46→16:21)
[2020-02-23] MEDS: Escitalopram Oxalate 10 MG Tablet PO (05:46)
[2020-02-23] MEDS: Lisinopril 10 MG Tablet PO (05:46)
[2020-02-23] MEDS: Polyethylene Glycol 3350 17 GM PACKET PO (05:46)
[2020-02-23] MEDS: Nystatin Powder 15gm Bottle 1 APPLIC TOPICAL ×2 (05:47→20:18)
[2020-02-23] MEDS: Menthol/Lanolin/Calamine/Znox 113 GM Tube 1 APPLIC TOPICAL ×2 (05:51→20:19)
[2020-02-23 06:41] LABS: Bedside Glucose 128 mg/dL (70-110)
[2020-02-23] MEDS: Aspirin E.C. 81 MG Tablet PO (09:16)
[2020-02-23] MEDS: Iron Polysaccharide Complex 150 MG CAPSULE PO (09:16)
[2020-02-23 11:35] LABS: Bedside Glucose 204 mg/dL (70-110)
[2020-02-23 15:04] VITALS: BP 114/72; PULSE 72; RESP 16; TEMP 37; O2SAT 97
[2020-02-23 16:41] LABS: Bedside Glucose 101 mg/dL (70-110)
[2020-02-23 20:00] VITALS: PULSE 80; RESP 16; O2SAT 97
[2020-02-23] MEDS: Atorvastatin Calcium 40 MG Tablet PO (20:16)
[2020-02-23 21:31] LABS: Bedside Glucose 156 mg/dL (70-110)
[2020-02-24 04:00] VITALS: BP 113/70; PULSE 75; RESP 16; O2SAT 94
[2020-02-24] MEDS: Senna/Docusate Sodium 1 Tablet PO (05:54)
[2020-02-24] MEDS: Escitalopram Oxalate 10 MG Tablet PO (05:54)
[2020-02-24] MEDS: Lisinopril 10 MG Tablet PO (05:54)
[2020-02-24] MEDS: Nystatin Powder 15gm Bottle 1 APPLIC TOPICAL ×2 (05:55→19:54)
[2020-02-24] MEDS: Menthol/Lanolin/Calamine/Znox 113 GM Tube 1 APPLIC TOPICAL ×2 (05:55→19:53)
[2020-02-24 06:21] LABS: Bedside Glucose 114 mg/dL (70-110)
[2020-02-24] MEDS: Iron Polysaccharide Complex 150 MG CAPSULE PO (08:11)
[2020-02-24] MEDS: Aspirin E.C. 81 MG Tablet PO (08:11)
[2020-02-24 10:00] VITALS: PULSE 80; RESP 16; O2SAT 97
[2020-02-24 11:15] LABS: Bedside Glucose 147 mg/dL (70-110)
--- NOTE | 2020-02-24 14:01 | NURSING ---
Attempted to contact family to provide update, unable to reach family.
--- NOTE | 2020-02-24 14:10 | NURSING ---
Update provided to family.
[2020-02-24 14:15] VITALS: BP 104/65; PULSE 75; RESP 16; TEMP 36.8; O2SAT 94
[2020-02-24 16:25] LABS: Bedside Glucose 118 mg/dL (70-110)
[2020-02-24] MEDS: Atorvastatin Calcium 40 MG Tablet PO (19:51)
[2020-02-24 21:21] LABS: Bedside Glucose 182 mg/dL (70-110)
[2020-02-25 04:00] VITALS: BP 123/78; PULSE 68; RESP 16; TEMP 36.4; O2SAT 98
[2020-02-25] MEDS: Senna/Docusate Sodium 1 Tablet PO (06:13)
[2020-02-25] MEDS: Lisinopril 10 MG Tablet PO (06:13)
[2020-02-25] MEDS: Escitalopram Oxalate 10 MG Tablet PO (06:13)
[2020-02-25] MEDS: Nystatin Powder 15gm Bottle 1 APPLIC TOPICAL (06:14)
[2020-02-25] MEDS: Menthol/Lanolin/Calamine/Znox 113 GM Tube 1 APPLIC TOPICAL (06:14)
[2020-02-25 06:30] LABS: Bedside Glucose 112 mg/dL (70-110)
[2020-02-25] MEDS: Aspirin E.C. 81 MG Tablet PO (09:46)
[2020-02-25] MEDS: Iron Polysaccharide Complex 150 MG CAPSULE PO (09:46)
== END 2020-02-25 10:00 | disposition home health service (06) | DRG 690 ==
PROVIDERS: Admitting Provider Family Medicine Geriatric Medicine; PCP Family Medicine Geriatric Medicine; Visit Provider Family Medicine Geriatric Medicine
DX: N39.0 Urinary tract infection, site not specified (principal); G81.91 Hemiplegia, unspecified affecting right dominant side; N17.9 Acute kidney failure, unspecified; B96.20 Unspecified Escherichia coli [E. coli] as the cause of diseases classified elsewhere; F32.9 Major depressive disorder, single episode, unspecified; I10 Essential (primary) hypertension; E78.5 Hyperlipidemia, unspecified; E11.9 Type 2 diabetes mellitus without complications; G47.33 Obstructive sleep apnea (adult) (pediatric); Z86.73 Personal history of transient ischemic attack (TIA), and cerebral infarction without residual deficits
CPT/HCPCS: 36415; 80048; 82962; 85014; 85018; 85025; 87635; 92507; 92523; 92526; 92610; 94799; 97032; 97110; 97162; 97166; 97530; 97535; 97802; U0003

== ENCOUNTER → 2020-03-03 | Outpatient (CLI) | payer MEDICARE, SELFPAY ==
[2020-02-05 15:18] VITALS: BMI 29.4
[2020-03-03 14:52] LABS: Absolute Lymphocyte Count 1.56 X10^3/uL (0.83-4.51); Absolute Neutrophil Count 4.4 X10^3/uL (2.0-7.7); Basophil# 0.02 X10^3/uL; Basophil% 0.3 % (0-1); Eosinophil# 0.16 X10^3/uL; Eosinophils% 2.4 % (0-5); Hematocrit 39.9 % (40-54); Hemoglobin 12.8 g/dL (13.0-16.5); Lymphocyte # 1.56 X10^3/ul (4.0); Lymphocyte % 23.8 % (19-41); Mean Corp Hgb Conc 32.1 g/dL (32-36); Mean Corpuscular Hgb 28.1 pg (27.0-32.0); Mean Corpuscular Volume 87.5 fL (80-94); Mean Platelet Vol. 10.7 fl (6.2-12.0); Monocyte# 0.38 X10^3/uL; Monocyte% 5.8 % (0-10); NRBC Flagged by Analyzer 0 % (0-5); Neutrophil # 4.41 X10^3/uL (2.7-7.7); Neutrophil % 67.4 % (47-70); Platelet Count 157 K/mm3 (150-450); RBC Distribution Width CV 15.4 % (11.6-14.6); RBC Distribution Width SD 49.1 fl (35.1-43.9); Red Blood Count 4.56 M/mm3 (4.6-6.2); White Blood Count 6.6 K/mm3 (4.4-11.0)
[2020-03-03 15:16] LABS: ALB/GLOB Ratio 0.7 RATIO (0.9-2.4); AST(SGOT) 13 U/L (15-37); Alanine Aminotransfer ALT/SGPT 25 U/L (16-61); Albumin, Serum 3.2 g/dL (3.2-5.0); Alkaline Phosphatase 87 U/L (45-117); Anion Gap 5 (5-15); BUN 24 mg/dL (7-18); BUN/Creat Ratio 31.5 RATIO (10-20); Calcium,Total 8.6 mg/dL (8.5-10.1); Chloride 106 mmol/L (98-107); Creatinine, Serum 0.76 mg/dL (0.70-1.30); EST Glomerular Filtration Rate 107 mL/min (>60); Est Glom Filt Rate - Afr Amer 130 mL/min (>60); Globulin 4.5 g/dL (2.2-4.2); Glucose 191 mg/dL (74-106); Potassium 4.1 mmol/L (3.5-5.1); Protein, Total 7.7 g/dL (6.4-8.2); Sodium Level 140 mmol/L (136-145)
[2020-03-03 15:23] LABS: Vitamin D,25 Hydroxy 30.8 ng/mL
== END | disposition home or self-care (01) ==
LOC: POLAB3 14:08
PROVIDERS: PCP Family Medicine Geriatric Medicine; Visit Provider Family Medicine Geriatric Medicine
DX: E11.65 Type 2 diabetes mellitus with hyperglycemia (principal); E55.9 Vitamin D deficiency, unspecified; I10 Essential (primary) hypertension
CPT/HCPCS: 36415; 80053; 82306; 84443; 85025

== ENCOUNTER → 2020-05-15 | Outpatient (CLI) | payer MEDICARE, SELFPAY ==
[2020-03-03 16:30] VITALS: BMI 27.1
--- NOTE | 2020-05-15 15:30 | RAD_ITS ---
STUDY: X-RAY - ABDOMEN/PELVIS REASON FOR EXAM: Male, 69 years old. FECAL IMPACTION TECHNIQUE: AP supine and upright views of the abdomen and pelvis. COMPARISON: None. FINDINGS: Normal visualized lung bases. Air and stool-filled colon with a substantial amount of well-formed stool in the distal colon. There is no demonstrated free abdominal air. The visualized liver, spleen and kidneys are grossly normal in size and morphology. Normal soft tissue structures. Normal visualized osseous structures. RAD/[employer] Decub and/or Erect IMPRESSION: Air and stool filled distended proximal colon with substantial stool in the distal colon consistent with constipation, potential impaction. Electronically Signed: Qing Escobedo MD at 15:59 EDT , Service support ,
[2020-05-15 15:56] LABS: Absolute Neutrophil Count 4.7 X10^3/uL (2.0-7.7); Basophil# 0.03 X10^3/uL; Basophil% 0.4 % (0-1); Eosinophil# 0.28 X10^3/uL; Eosinophils% 3.8 % (0-5); Hematocrit 43.1 % (40-54); Lymphocyte % 24.6 % (19-41); Mean Corp Hgb Conc 32.5 g/dL (32-36); Mean Corpuscular Hgb 28.5 pg (27.0-32.0); Mean Corpuscular Volume 87.8 fL (80-94); Mean Platelet Vol. 10.7 fl (6.2-12.0); Monocyte# 0.49 X10^3/uL; Monocyte% 6.7 % (0-10); NRBC Flagged by Analyzer 0 % (0-5); Neutrophil % 64.2 % (47-70); Platelet Count 191 K/mm3 (150-450); RBC Distribution Width CV 14.1 % (11.6-14.6); RBC Distribution Width SD 44.8 fl (35.1-43.9); Red Blood Count 4.91 M/mm3 (4.6-6.2); White Blood Count 7.3 K/mm3 (4.4-11.0)
[2020-05-15 16:12] LABS: Vitamin D,25 Hydroxy 22.3 ng/mL
[2020-05-15 16:17] LABS: ALB/GLOB Ratio 0.9 RATIO (0.9-2.4); AST(SGOT) 17 U/L (15-37); Alanine Aminotransfer ALT/SGPT 27 U/L (16-61); Albumin, Serum 3.6 g/dL (3.2-5.0); Alkaline Phosphatase 73 U/L (45-117); Anion Gap 4 (5-15); BUN 15 mg/dL (7-18); BUN/Creat Ratio 17.9 RATIO (10-20); Calcium,Total 8.7 mg/dL (8.5-10.1); Chloride 106 mmol/L (98-107); Creatinine, Serum 0.84 mg/dL (0.70-1.30); EST Glomerular Filtration Rate 96 mL/min (>60); Est Glom Filt Rate - Afr Amer 116 mL/min (>60); Globulin 4.2 g/dL (2.2-4.2); Glucose 121 mg/dL (74-106); Potassium 3.9 mmol/L (3.5-5.1); Protein, Total 7.8 g/dL (6.4-8.2); Sodium Level 141 mmol/L (136-145); Thyroid Stim Hormone (TSH) 3.76 uIU/mL (0.358-3.74)
== END | disposition home or self-care (01) ==
LOC: POLAB3 13:59
PROVIDERS: PCP Family Medicine Geriatric Medicine; Visit Provider Family Medicine Geriatric Medicine
DX: E55.9 Vitamin D deficiency, unspecified (principal); I10 Essential (primary) hypertension; K56.41 Fecal impaction; Z12.5 Encounter for screening for malignant neoplasm of prostate
CPT/HCPCS: 36415; 74019; 80053; 82306; 84153; 84443; 85025; G0103

== ENCOUNTER → 2020-07-02 | Outpatient (CLI) | payer MEDICARE, SELFPAY ==
[2020-03-03 16:30] VITALS: BMI 27.1
[2020-07-02 16:09] LABS: Thyroid Stim Hormone (TSH) 3.19 uIU/mL (0.358-3.74)
== END | disposition home or self-care (01) ==
LOC: LAB 14:35
PROVIDERS: PCP Family Medicine Geriatric Medicine; Visit Provider Family Medicine Geriatric Medicine
DX: E03.9 Hypothyroidism, unspecified (principal)
CPT/HCPCS: 36415; 84443

== ENCOUNTER → 2020-08-13 13:44 | Outpatient (CLI) | payer MEDICARE, SELFPAY ==
[2020-03-03 16:30] VITALS: BMI 27.1
[2020-08-13 17:00] LABS: Absolute Lymphocyte Count 1.69 X10^3/uL (0.83-4.51); Basophil# 0.03 X10^3/uL; Basophil% 0.5 % (0-1); Eosinophil# 0.16 X10^3/uL; Eosinophils% 2.5 % (0-5); Hematocrit 45.7 % (40-54); Hemoglobin 14.5 g/dL (13.0-16.5); Lymphocyte # 1.69 X10^3/ul (4.0); Lymphocyte % 26.8 % (19-41); Mean Corp Hgb Conc 31.7 g/dL (32-36); Mean Corpuscular Hgb 27.6 pg (27.0-32.0); Mean Platelet Vol. 10.6 fl (6.2-12.0); Monocyte# 0.46 X10^3/uL; Monocyte% 7.3 % (0-10); NRBC Flagged by Analyzer 0 % (0-5); Neutrophil # 3.96 X10^3/uL (2.7-7.7); Neutrophil % 62.7 % (47-70); Platelet Count 204 K/mm3 (150-450); RBC Distribution Width CV 14.6 % (11.6-14.6); RBC Distribution Width SD 46.9 fl (35.1-43.9); Red Blood Count 5.25 M/mm3 (4.6-6.2); White Blood Count 6.3 K/mm3 (4.4-11.0)
[2020-08-13 17:14] LABS: Vitamin D,25 Hydroxy 15.7 ng/mL
[2020-08-13 17:21] LABS: ALB/GLOB Ratio 0.9 RATIO (0.9-2.4); AST(SGOT) 18 U/L (15-37); Alanine Aminotransfer ALT/SGPT 27 U/L (16-61); Albumin, Serum 3.8 g/dL (3.2-5.0); Alkaline Phosphatase 81 U/L (45-117); Anion Gap 4 (5-15); BUN 22 mg/dL (7-18); BUN/Creat Ratio 31.6 RATIO (10-20); Calcium,Total 8.9 mg/dL (8.5-10.1); Chloride 106 mmol/L (98-107); EST Glomerular Filtration Rate 119 mL/min (>60); Est Glom Filt Rate - Afr Amer 144 mL/min (>60); Globulin 4.3 g/dL (2.2-4.2); Glucose 127 mg/dL (74-106); Potassium 3.7 mmol/L (3.5-5.1); Protein, Total 8.1 g/dL (6.4-8.2); Sodium Level 139 mmol/L (136-145); Thyroid Stim Hormone (TSH) 2.59 uIU/mL (0.358-3.74)
== END ==
PROVIDERS: PCP Family Medicine Geriatric Medicine; Visit Provider Family Medicine Geriatric Medicine
DX: E11.65 Type 2 diabetes mellitus with hyperglycemia (principal); I10 Essential (primary) hypertension; E55.9 Vitamin D deficiency, unspecified
CPT/HCPCS: 36415; 80053; 82306; 84443; 85025

== ENCOUNTER 2020-11-11 12:38 | Outpatient (RCR) | payer MEDICARE, SELFPAY ==
[2020-03-03 16:30] VITALS: BMI 27.1
[2020-11-11] MEDS: COVID-19 VACC, MRNA(PFIZER)/PF 30 MCG/0.3 ML SYRINGE IM (11:29)
[2020-12-02] MEDS: COVID-19 VACC, MRNA(PFIZER)/PF 30 MCG/0.3 ML SYRINGE IM (11:06)
== END 2021-02-10 23:59 ==
LOC: IMMUN 12:38
PROVIDERS: PCP Family Medicine Geriatric Medicine; Visit Provider Family Medicine
DX: Z23 Encounter for immunization (principal)
CPT/HCPCS: 0001A; 0002A; 91300

== ENCOUNTER → 2020-11-12 13:39 | Outpatient (CLI) | payer MEDICARE, SELFPAY ==
[2020-03-03 16:30] VITALS: BMI 27.1
[2020-11-12 17:28] LABS: Absolute Lymphocyte Count 2.12 X10^3/uL (0.83-4.51); Absolute Neutrophil Count 4.7 X10^3/uL (2.0-7.7); Basophil# 0.03 X10^3/uL; Basophil% 0.4 % (0-1); Eosinophil# 0.25 X10^3/uL; Eosinophils% 3.3 % (0-5); Hematocrit 44.6 % (40-54); Hemoglobin 14.2 g/dL (13.0-16.5); Lymphocyte # 2.12 X10^3/ul (4.0); Lymphocyte % 28.1 % (19-41); Mean Corp Hgb Conc 31.8 g/dL (32-36); Mean Corpuscular Hgb 28.8 pg (27.0-32.0); Mean Corpuscular Volume 90.5 fL (80-94); Mean Platelet Vol. 10.6 fl (6.2-12.0); Monocyte# 0.46 X10^3/uL; Monocyte% 6.1 % (0-10); NRBC Flagged by Analyzer 0 % (0-5); Neutrophil # 4.66 X10^3/uL (2.7-7.7); Neutrophil % 61.8 % (47-70); Platelet Count 202 K/mm3 (150-450); RBC Distribution Width CV 14.1 % (11.6-14.6); RBC Distribution Width SD 47.2 fl (35.1-43.9); Red Blood Count 4.93 M/mm3 (4.6-6.2); White Blood Count 7.5 K/mm3 (4.4-11.0)
[2020-11-12 17:45] LABS: Vitamin D,25 Hydroxy 18.5 ng/mL
[2020-11-12 17:58] LABS: ALB/GLOB Ratio 0.8 RATIO (0.9-2.4); AST(SGOT) 9 U/L (15-37); Alanine Aminotransfer ALT/SGPT 24 U/L (16-61); Albumin, Serum 3.6 g/dL (3.2-5.0); Alkaline Phosphatase 85 U/L (45-117); Anion Gap 6 (5-15); BUN 20 mg/dL (7-18); Calcium,Total 8.6 mg/dL (8.5-10.1); Chloride 106 mmol/L (98-107); Creatinine, Serum 0.74 mg/dL (0.70-1.30); EST Glomerular Filtration Rate 111 mL/min (>60); Est Glom Filt Rate - Afr Amer 134 mL/min (>60); Globulin 4.3 g/dL (2.2-4.2); Glucose 140 mg/dL (74-106); Potassium 3.7 mmol/L (3.5-5.1); Protein, Total 7.9 g/dL (6.4-8.2); Sodium Level 141 mmol/L (136-145); Thyroid Stim Hormone (TSH) 2.52 uIU/mL (0.358-3.74)
== END ==
PROVIDERS: PCP Family Medicine Geriatric Medicine; Visit Provider Family Medicine Geriatric Medicine
DX: E11.65 Type 2 diabetes mellitus with hyperglycemia (principal); E55.9 Vitamin D deficiency, unspecified; I10 Essential (primary) hypertension
CPT/HCPCS: 36415; 80053; 82306; 84443; 85025

== ENCOUNTER → 2021-02-12 15:26 | Outpatient (CLI) | payer MEDICARE, SELFPAY ==
[2020-03-03 16:30] VITALS: BMI 27.1
[2021-02-12 17:15] LABS: Absolute Lymphocyte Count 1.89 X10^3/uL (0.83-4.51); Basophil# 0.03 X10^3/uL; Basophil% 0.4 % (0-1); Eosinophil# 0.39 X10^3/uL; Eosinophils% 5.7 % (0-5); Hematocrit 44.1 % (40-54); Hemoglobin 14.4 g/dL (13.0-16.5); Lymphocyte # 1.89 X10^3/ul (0.83-4.51); Lymphocyte % 27.5 % (19-41); Mean Corp Hgb Conc 32.7 g/dL (32-36); Mean Corpuscular Hgb 28.9 pg (27.0-32.0); Mean Corpuscular Volume 88.4 fL (80-94); Mean Platelet Vol. 10.2 fl (6.2-12.0); Monocyte# 0.54 X10^3/uL; Monocyte% 7.8 % (0-10); NRBC Flagged by Analyzer 0 % (0-5); Neutrophil # 4.01 X10^3/uL (2.7-7.7); Neutrophil % 58.3 % (47-70); Platelet Count 203 K/mm3 (150-450); RBC Distribution Width CV 13.6 % (11.6-14.6); RBC Distribution Width SD 44.1 fl (35.1-43.9); Red Blood Count 4.99 M/mm3 (4.6-6.2); White Blood Count 6.9 K/mm3 (4.4-11.0)
[2021-02-12 17:50] LABS: Vitamin D,25 Hydroxy 19.5 ng/mL
[2021-02-12 18:23] LABS: ALB/GLOB Ratio 0.9 RATIO (0.9-2.4); AST(SGOT) 11 U/L (15-37); Alanine Aminotransfer ALT/SGPT 23 U/L (16-61); Albumin, Serum 3.5 g/dL (3.2-5.0); Alkaline Phosphatase 85 U/L (45-117); Anion Gap 6 (5-15); BUN 20 mg/dL (7-18); Calcium,Total 8.8 mg/dL (8.5-10.1); Chloride 106 mmol/L (98-107); Creatinine, Serum 0.71 mg/dL (0.70-1.30); EST Glomerular Filtration Rate 115 mL/min (>60); Est Glom Filt Rate - Afr Amer 140 mL/min (>60); Glucose 108 mg/dL (74-106); Potassium 3.8 mmol/L (3.5-5.1); Protein, Total 7.5 g/dL (6.4-8.2); Sodium Level 140 mmol/L (136-145); Thyroid Stim Hormone (TSH) 2.89 uIU/mL (0.358-3.74)
== END ==
PROVIDERS: PCP Family Medicine Geriatric Medicine; Visit Provider Family Medicine Geriatric Medicine
DX: E11.65 Type 2 diabetes mellitus with hyperglycemia (principal); E55.9 Vitamin D deficiency, unspecified; I10 Essential (primary) hypertension
CPT/HCPCS: 36415; 80053; 82306; 84443; 85025

== ENCOUNTER → 2021-05-20 15:05 | Outpatient (CLI) | payer MEDICARE, SELFPAY ==
[2021-05-20 15:53] LABS: Absolute Lymphocyte Count 1.56 X10^3/uL (0.83-4.51); Absolute Neutrophil Count 3.7 X10^3/uL (2.0-7.7); Basophil# 0.03 X10^3/uL; Basophil% 0.5 % (0-1); Eosinophils% 4.9 % (0-5); Hemoglobin 14.8 g/dL (13.0-16.5); Lymphocyte # 1.56 X10^3/ul (0.83-4.51); Lymphocyte % 25.7 % (19-41); Mean Corp Hgb Conc 32.9 g/dL (32-36); Mean Corpuscular Hgb 29.1 pg (27.0-32.0); Mean Corpuscular Volume 88.6 fL (80-94); Mean Platelet Vol. 10.3 fl (6.2-12.0); Monocyte# 0.44 X10^3/uL; Monocyte% 7.2 % (0-10); NRBC Flagged by Analyzer 0 % (0-5); Neutrophil # 3.73 X10^3/uL (2.7-7.7); Neutrophil % 61.5 % (47-70); Platelet Count 192 K/mm3 (150-450); RBC Distribution Width CV 13.8 % (11.6-14.6); Red Blood Count 5.08 M/mm3 (4.6-6.2); White Blood Count 6.1 K/mm3 (4.4-11.0)
[2021-05-20 16:20] LABS: Vitamin D,25 Hydroxy 20.6 ng/mL
[2021-05-20 16:31] LABS: ALB/GLOB Ratio 0.8 RATIO (0.9-2.4); AST(SGOT) 13 U/L (15-37); Alanine Aminotransfer ALT/SGPT 26 U/L (16-61); Albumin, Serum 3.3 g/dL (3.2-5.0); Alkaline Phosphatase 83 U/L (45-117); Anion Gap 3 (5-15); BUN 19 mg/dL (7-18); BUN/Creat Ratio 29.9 RATIO (10-20); Calcium,Total 8.6 mg/dL (8.5-10.1); Chloride 105 mmol/L (98-107); Creatinine, Serum 0.64 mg/dL (0.70-1.30); EST Glomerular Filtration Rate 132 mL/min (>60); Est Glom Filt Rate - Afr Amer 159 mL/min (>60); Globulin 4.1 g/dL (2.2-4.2); Glucose 122 mg/dL (74-106); Potassium 4.1 mmol/L (3.5-5.1); Protein, Total 7.4 g/dL (6.4-8.2); Sodium Level 139 mmol/L (136-145); Thyroid Stim Hormone (TSH) 2.62 uIU/mL (0.358-3.74)
== END ==
PROVIDERS: PCP Family Medicine Geriatric Medicine; Visit Provider Family Medicine Geriatric Medicine
DX: E11.65 Type 2 diabetes mellitus with hyperglycemia (principal); E55.9 Vitamin D deficiency, unspecified; I10 Essential (primary) hypertension
CPT/HCPCS: 36415; 80053; 82306; 84443; 85025

== ENCOUNTER 2021-11-18 14:06 | Outpatient (CLI) | payer MEDICARE, SELFPAY ==
[2021-11-18 17:20] LABS: Absolute Lymphocyte Count 1.93 X10^3/uL (0.83-4.51); Absolute Neutrophil Count 4.1 X10^3/uL (2.0-7.7); Basophil# 0.03 X10^3/uL; Basophil% 0.4 % (0-1); Eosinophil# 0.25 X10^3/uL; Eosinophils% 3.6 % (0-5); Hematocrit 45.2 % (40-54); Hemoglobin 15.4 g/dL (13.0-16.5); Lymphocyte # 1.93 X10^3/ul (0.83-4.51); Mean Corp Hgb Conc 34.1 g/dL (32-36); Mean Corpuscular Hgb 29.6 pg (27.0-32.0); Mean Corpuscular Volume 86.9 fL (80-94); Mean Platelet Vol. 10.3 fl (6.2-12.0); Monocyte# 0.55 X10^3/uL; NRBC Flagged by Analyzer 0 % (0-5); Neutrophil # 4.12 X10^3/uL (2.7-7.7); Neutrophil % 59.7 % (47-70); Platelet Count 207 K/mm3 (150-450); RBC Distribution Width CV 13.5 % (11.6-14.6); White Blood Count 6.9 K/mm3 (4.4-11.0)
[2021-11-18 17:38] LABS: ALB/GLOB Ratio 0.9 RATIO (0.9-2.4); AST(SGOT) 15 U/L (15-37); Alanine Aminotransfer ALT/SGPT 27 U/L (16-61); Albumin, Serum 3.7 g/dL (3.2-5.0); Alkaline Phosphatase 85 U/L (45-117); Anion Gap 4 (5-15); BUN 21 mg/dL (7-18); BUN/Creat Ratio 24.6 RATIO (10-20); Calcium,Total 8.5 mg/dL (8.5-10.1); Chloride 105 mmol/L (98-107); Creatinine, Serum 0.85 mg/dL (0.70-1.30); EST Glomerular Filtration Rate 94 mL/min (>60); Est Glom Filt Rate - Afr Amer 114 mL/min (>60); Globulin 4.2 g/dL (2.2-4.2); Glucose 144 mg/dL (74-106); Potassium 3.6 mmol/L (3.5-5.1); Protein, Total 7.9 g/dL (6.4-8.2); Sodium Level 140 mmol/L (136-145); Thyroid Stim Hormone (TSH) 3.02 uIU/mL (0.358-3.74)
[2021-11-18 17:41] LABS: Vitamin D,25 Hydroxy 23.9 ng/mL
== END 2021-11-18 23:59 | disposition home or self-care (01) ==
LOC: POLAB3 14:08
PROVIDERS: PCP Family Medicine Geriatric Medicine; Visit Provider Family Medicine Geriatric Medicine
DX: E11.65 Type 2 diabetes mellitus with hyperglycemia (principal); E55.9 Vitamin D deficiency, unspecified; I10 Essential (primary) hypertension
CPT/HCPCS: 36415; 80053; 82306; 84443; 85025

== ENCOUNTER → 2022-05-26 | Outpatient (CLI) | payer MEDICARE, SELFPAY ==
[2022-05-26 16:54] LABS: Absolute Lymphocyte Count 1.81 X10^3/uL (0.83-4.51); Absolute Neutrophil Count 4.9 X10^3/uL (2.0-7.7); Basophil# 0.02 X10^3/uL; Basophil% 0.3 % (0-1); Eosinophil# 0.28 X10^3/uL; Eosinophils% 3.7 % (0-5); Lymphocyte # 1.81 X10^3/ul (0.83-4.51); Lymphocyte % 24.1 % (19-41); Mean Corp Hgb Conc 31.9 g/dL (32-36); Mean Corpuscular Hgb 28.5 pg (27.0-32.0); Mean Corpuscular Volume 89.2 fL (80-94); Mean Platelet Vol. 10.9 fl (6.2-12.0); Monocyte# 0.53 X10^3/uL; Monocyte% 7.1 % (0-10); NRBC Flagged by Analyzer 0 % (0-5); Neutrophil # 4.86 X10^3/uL (2.7-7.7); Neutrophil % 64.7 % (47-70); Platelet Count 201 K/mm3 (150-450); RBC Distribution Width CV 13.6 % (11.6-14.6); RBC Distribution Width SD 44.6 fl (35.1-43.9); Red Blood Count 5.27 M/mm3 (4.6-6.2); White Blood Count 7.5 K/mm3 (4.4-11.0)
[2022-05-26 17:09] LABS: Vitamin D,25 Hydroxy 18.8 ng/mL
[2022-05-26 17:23] LABS: ALB/GLOB Ratio 0.8 RATIO (0.9-2.4); AST(SGOT) 15 U/L (15-37); Alanine Aminotransfer ALT/SGPT 25 U/L (16-61); Albumin, Serum 3.4 g/dL (3.2-5.0); Alkaline Phosphatase 82 U/L (45-117); Anion Gap 8 (5-15); BUN 21 mg/dL (7-18); BUN/Creat Ratio 23.4 RATIO (10-20); Calcium,Total 8.6 mg/dL (8.5-10.1); Chloride 106 mmol/L (98-107); EST Glomerular Filtration Rate 88 mL/min (>60); Est Glom Filt Rate - Afr Amer 107 mL/min (>60); Globulin 4.4 g/dL (2.2-4.2); Glucose 124 mg/dL (74-106); Potassium 3.7 mmol/L (3.5-5.1); Protein, Total 7.8 g/dL (6.4-8.2); Sodium Level 142 mmol/L (136-145); Thyroid Stim Hormone (TSH) 3.13 uIU/mL (0.358-3.74)
== END | disposition home or self-care (01) ==
LOC: POLAB3 12:41
PROVIDERS: PCP Family Medicine Geriatric Medicine; Visit Provider Family Medicine Geriatric Medicine
DX: I10 Essential (primary) hypertension (principal); E11.65 Type 2 diabetes mellitus with hyperglycemia; E55.9 Vitamin D deficiency, unspecified
CPT/HCPCS: 36415; 80053; 82306; 84443; 85025

== ENCOUNTER → 2022-11-22 | Outpatient (CLI) | payer MEDICARE, SELFPAY ==
[2022-11-22 17:03] LABS: Absolute Lymphocyte Count 1.84 X10^3/uL (0.83-4.51); Absolute Neutrophil Count 4.7 X10^3/uL (2.0-7.7); Basophil# 0.04 X10^3/uL; Basophil% 0.5 % (0-1); Eosinophil# 0.29 X10^3/uL; Eosinophils% 3.9 % (0-5); Hematocrit 47.1 % (40-54); Lymphocyte # 1.84 X10^3/ul (0.83-4.51); Lymphocyte % 24.5 % (19-41); Mean Corp Hgb Conc 31.8 g/dL (32-36); Mean Corpuscular Hgb 28.7 pg (27.0-32.0); Mean Corpuscular Volume 90.2 fL (80-94); Mean Platelet Vol. 10.7 fl (6.2-12.0); Monocyte# 0.65 X10^3/uL; Monocyte% 8.6 % (0-10); NRBC Flagged by Analyzer 0 % (0-5); Neutrophil # 4.68 X10^3/uL (2.7-7.7); Neutrophil % 62.2 % (47-70); Platelet Count 201 K/mm3 (150-450); RBC Distribution Width CV 13.7 % (11.6-14.6); RBC Distribution Width SD 45.4 fl (35.1-43.9); Red Blood Count 5.22 M/mm3 (4.6-6.2); White Blood Count 7.5 K/mm3 (4.4-11.0)
[2022-11-22 17:43] LABS: Vitamin D,25 Hydroxy 30.1 ng/mL
[2022-11-22 17:48] LABS: ALB/GLOB Ratio 0.9 RATIO (0.9-2.4); AST(SGOT) 17 U/L (15-37); Alanine Aminotransfer ALT/SGPT 27 U/L (16-61); Albumin, Serum 3.6 g/dL (3.2-5.0); Alkaline Phosphatase 72 U/L (45-117); Anion Gap 5 (5-15); BUN 25 mg/dL (7-18); BUN/Creat Ratio 32.5 RATIO (10-20); Calcium,Total 8.8 mg/dL (8.5-10.1); Chloride 109 mmol/L (98-107); Creatinine, Serum 0.77 mg/dL (0.70-1.30); EST Glomerular Filtration Rate 105 mL/min (>60); Est Glom Filt Rate - Afr Amer 127 mL/min (>60); Globulin 4.1 g/dL (2.2-4.2); Glucose 130 mg/dL (74-106); Protein, Total 7.7 g/dL (6.4-8.2); Sodium Level 143 mmol/L (136-145); Thyroid Stim Hormone (TSH) 3.38 uIU/mL (0.358-3.74)
== END | disposition home or self-care (01) ==
LOC: POLAB3 14:45
PROVIDERS: PCP Family Medicine Geriatric Medicine; Visit Provider Family Medicine Geriatric Medicine
DX: I10 Essential (primary) hypertension (principal); E11.65 Type 2 diabetes mellitus with hyperglycemia; E55.9 Vitamin D deficiency, unspecified
CPT/HCPCS: 36415; 80053; 82306; 84443; 85025

== ENCOUNTER → 2023-05-30 | Outpatient (CLI) | payer MEDICARE, SELFPAY ==
[2023-05-30 17:48] LABS: Absolute Lymphocyte Count 2.15 X10^3/uL (0.83-4.51); Absolute Neutrophil Count 3.6 X10^3/uL (2.0-7.7); Basophil# 0.04 X10^3/uL; Basophil% 0.6 % (0-1); Eosinophil# 0.37 X10^3/uL; Eosinophils% 5.4 % (0-5); Hematocrit 45.8 % (40-54); Hemoglobin 14.7 g/dL (13.0-16.5); Lymphocyte # 2.15 X10^3/ul (0.83-4.51); Lymphocyte % 31.5 % (19-41); Mean Corp Hgb Conc 32.1 g/dL (32-36); Mean Corpuscular Volume 90.3 fL (80-94); Mean Platelet Vol. 10.4 fl (6.2-12.0); Monocyte# 0.64 X10^3/uL; Monocyte% 9.4 % (0-10); NRBC Flagged by Analyzer 0 % (0-5); Neutrophil # 3.61 X10^3/uL (2.7-7.7); Neutrophil % 52.8 % (47-70); Platelet Count 216 K/mm3 (150-450); RBC Distribution Width CV 14.2 % (11.6-14.6); RBC Distribution Width SD 47.2 fl (35.1-43.9); Red Blood Count 5.07 M/mm3 (4.6-6.2); White Blood Count 6.8 K/mm3 (4.4-11.0)
[2023-05-30 18:20] LABS: ALB/GLOB Ratio 0.8 RATIO (0.9-2.4); AST(SGOT) 14 U/L (15-37); Alanine Aminotransfer ALT/SGPT 25 U/L (16-61); Albumin, Serum 3.5 g/dL (3.2-5.0); Alkaline Phosphatase 93 U/L (45-117); Anion Gap 4 (5-15); BUN 17 mg/dL (7-18); BUN/Creat Ratio 20.2 RATIO (10-20); Calcium,Total 8.5 mg/dL (8.5-10.1); Chloride 108 mmol/L (98-107); Creatinine, Serum 0.84 mg/dL (0.70-1.30); EST Glomerular Filtration Rate 95 mL/min (>60); Est Glom Filt Rate - Afr Amer 115 mL/min (>60); Globulin 4.3 g/dL (2.2-4.2); Glucose 121 mg/dL (74-106); Potassium 3.5 mmol/L (3.5-5.1); Protein, Total 7.8 g/dL (6.4-8.2); Sodium Level 141 mmol/L (136-145); Thyroid Stim Hormone (TSH) 3.83 uIU/mL (0.358-3.74)
[2023-05-30 18:42] LABS: Vitamin D,25 Hydroxy 26.2 ng/mL
== END | disposition home or self-care (01) ==
LOC: POLAB3 14:52
PROVIDERS: PCP Family Medicine Geriatric Medicine; Visit Provider Family Medicine Geriatric Medicine
DX: I10 Essential (primary) hypertension (principal); E11.65 Type 2 diabetes mellitus with hyperglycemia; E55.9 Vitamin D deficiency, unspecified
CPT/HCPCS: 36415; 80053; 82306; 84443; 85025

== ENCOUNTER → 2023-07-20 | Outpatient (CLI) | payer MEDICARE, SELFPAY ==
[2023-07-20 13:20] LABS: Thyroid Stim Hormone (TSH) 2.01 uIU/mL (0.358-3.74)
== END | disposition home or self-care (01) ==
LOC: LAB 11:00
PROVIDERS: PCP Family Medicine Geriatric Medicine; Referring Provider Family Medicine Geriatric Medicine; Visit Provider Family Medicine Geriatric Medicine
DX: E03.9 Hypothyroidism, unspecified (principal)
CPT/HCPCS: 36415; 84443

== ENCOUNTER → 2023-11-29 | Outpatient (CLI) | payer MEDICARE, SELFPAY ==
[2023-11-29 14:55] LABS: Absolute Lymphocyte Count 2.14 X10^3/uL (0.83-4.51); Absolute Neutrophil Count 4.3 X10^3/uL (2.0-7.7); Basophil# 0.05 X10^3/uL; Basophil% 0.7 % (0-1); Eosinophil# 0.24 X10^3/uL; Eosinophils% 3.3 % (0-5); Hematocrit 43.9 % (40-54); Hemoglobin 14.4 g/dL (13.0-16.5); Lymphocyte # 2.14 X10^3/ul (0.83-4.51); Lymphocyte % 29.4 % (19-41); Mean Corp Hgb Conc 32.8 g/dL (32-36); Mean Corpuscular Hgb 28.8 pg (27.0-32.0); Mean Corpuscular Volume 87.8 fL (80-94); Mean Platelet Vol. 9.7 fl (6.2-12.0); Monocyte# 0.53 X10^3/uL; Monocyte% 7.3 % (0-10); NRBC Flagged by Analyzer 0 % (0-5); Neutrophil # 4.29 X10^3/uL (2.7-7.7); Platelet Count 238 K/mm3 (150-450); RBC Distribution Width CV 13.6 % (11.6-14.6); RBC Distribution Width SD 43.5 fl (35.1-43.9); White Blood Count 7.3 K/mm3 (4.4-11.0)
[2023-11-29 15:10] LABS: Vitamin D,25 Hydroxy 29.6 ng/mL
[2023-11-29 15:21] LABS: ALB/GLOB Ratio 0.8 RATIO (0.9-2.4); AST(SGOT) 17 U/L (15-37); Alanine Aminotransfer ALT/SGPT 23 U/L (16-61); Albumin, Serum 3.4 g/dL (3.2-5.0); Alkaline Phosphatase 82 U/L (45-117); Anion Gap 8 (5-15); BUN 17 mg/dL (7-18); BUN/Creat Ratio 19.9 RATIO (10-20); Calcium,Total 8.7 mg/dL (8.5-10.1); Chloride 105 mmol/L (98-107); Creatinine, Serum 0.85 mg/dL (0.70-1.30); EST Glomerular Filtration Rate 93 mL/min (>60); Est Glom Filt Rate - Afr Amer 113 mL/min (>60); Globulin 4.2 g/dL (2.2-4.2); Glucose 155 mg/dL (74-106); Potassium 3.8 mmol/L (3.5-5.1); Protein, Total 7.6 g/dL (6.4-8.2); Sodium Level 138 mmol/L (136-145); Thyroid Stim Hormone (TSH) 3.18 uIU/mL (0.358-3.74)
== END | disposition home or self-care (01) ==
LOC: POLAB3 14:14
PROVIDERS: PCP Family Medicine Geriatric Medicine; Visit Provider Family Medicine Geriatric Medicine
DX: E11.65 Type 2 diabetes mellitus with hyperglycemia (principal); E55.9 Vitamin D deficiency, unspecified; I10 Essential (primary) hypertension
CPT/HCPCS: 36415; 80053; 82306; 84443; 85025

== ENCOUNTER → 2024-06-05 | Outpatient (CLI) | payer MEDICARE, SELFPAY ==
[2024-06-05 14:26] LABS: Absolute Lymphocyte Count 1.93 X10^3/uL (0.83-4.51); Absolute Neutrophil Count 4.5 X10^3/uL (2.0-7.7); Basophil# 0.04 X10^3/uL; Basophil% 0.5 % (0-1); Eosinophils% 4.1 % (0-5); Hematocrit 44.1 % (40-54); Hemoglobin 14.3 g/dL (13.0-16.5); Lymphocyte # 1.93 X10^3/ul (0.83-4.51); Lymphocyte % 26.5 % (19-41); Mean Corp Hgb Conc 32.4 g/dL (32-36); Mean Corpuscular Hgb 28.8 pg (27.0-32.0); Mean Corpuscular Volume 88.7 fL (80-94); Mean Platelet Vol. 9.9 fl (6.2-12.0); Monocyte# 0.54 X10^3/uL; Monocyte% 7.4 % (0-10); NRBC Flagged by Analyzer 0 % (0-5); Neutrophil # 4.45 X10^3/uL (2.7-7.7); Neutrophil % 61.1 % (47-70); Platelet Count 195 K/mm3 (150-450); RBC Distribution Width CV 13.8 % (11.6-14.6); RBC Distribution Width SD 44.5 fl (35.1-43.9); Red Blood Count 4.97 M/mm3 (4.6-6.2); White Blood Count 7.3 K/mm3 (4.4-11.0)
[2024-06-05 14:56] LABS: Vitamin D,25 Hydroxy 19.2 ng/mL
[2024-06-05 15:06] LABS: ALB/GLOB Ratio 0.8 RATIO (0.9-2.4); AST(SGOT) 14 U/L (15-37); Alanine Aminotransfer ALT/SGPT 21 U/L (16-61); Albumin, Serum 3.3 g/dL (3.2-5.0); Alkaline Phosphatase 81 U/L (45-117); Anion Gap 6 (5-15); BUN 24 mg/dL (7-18); BUN/Creat Ratio 28.2 RATIO (10-20); Calcium,Total 8.9 mg/dL (8.5-10.1); Chloride 109 mmol/L (98-107); Creatinine, Serum 0.85 mg/dL (0.70-1.30); EST Glomerular Filtration Rate 93 mL/min (>60); Est Glom Filt Rate - Afr Amer 113 mL/min (>60); Globulin 4.3 g/dL (2.2-4.2); Glucose 148 mg/dL (74-106); Potassium 3.8 mmol/L (3.5-5.1); Protein, Total 7.6 g/dL (6.4-8.2); Sodium Level 141 mmol/L (136-145)
== END | disposition home or self-care (01) ==
LOC: POLAB3 14:12
PROVIDERS: PCP Family Medicine Geriatric Medicine; Visit Provider Family Medicine Geriatric Medicine
DX: E11.65 Type 2 diabetes mellitus with hyperglycemia (principal); I10 Essential (primary) hypertension; E55.9 Vitamin D deficiency, unspecified
CPT/HCPCS: 36415; 80053; 82306; 84443; 85025

== ENCOUNTER → 2024-12-04 | Outpatient (CLI) | payer MEDICARE, SELFPAY ==
[2024-12-04 15:34] LABS: Absolute Lymphocyte Count 1.39 X10^3/uL (0.83-4.51); Basophil# 0.04 X10^3/uL; Basophil% 0.6 % (0-1); Eosinophil# 0.24 X10^3/uL; Eosinophils% 3.8 % (0-5); Hematocrit 41.8 % (40-54); Lymphocyte # 1.39 X10^3/ul (0.83-4.51); Lymphocyte % 22.2 % (19-41); Mean Corp Hgb Conc 33.5 g/dL (32-36); Mean Corpuscular Hgb 29.2 pg (27.0-32.0); Mean Corpuscular Volume 87.1 fL (80-94); Mean Platelet Vol. 9.9 fl (6.2-12.0); Monocyte# 0.55 X10^3/uL; Monocyte% 8.8 % (0-10); NRBC Flagged by Analyzer 0 % (0-5); Neutrophil # 4.02 X10^3/uL (2.7-7.7); Neutrophil % 64.3 % (47-70); Platelet Count 191 K/mm3 (150-450); RBC Distribution Width CV 14.1 % (11.6-14.6); RBC Distribution Width SD 45.3 fl (35.1-43.9); White Blood Count 6.3 K/mm3 (4.4-11.0)
[2024-12-04 16:22] LABS: ALB/GLOB Ratio 1.2 RATIO (0.9-2.4); AST(SGOT) 22 U/L (<=37); Alanine Aminotransfer ALT/SGPT 18 U/L (<=46); Albumin, Serum 3.8 g/dL (3.4-4.8); Alkaline Phosphatase 87 U/L (40-129); Anion Gap 10 (5-15); BUN 17 mg/dL (4-19); BUN/Creat Ratio 23.2 RATIO (10-20); Calcium,Total 8.8 mg/dL (7.6-11.0); Chloride 104 mmol/L (98-108); Creatinine, Serum 0.73 mg/dL (0.70-1.20); EST Glomerular Filtration Rate 95 (>60); Globulin 3.2 g/dL (2.2-4.2); Glucose 136 mg/dL (70-99); Potassium 4.6 mmol/L (3.3-5.1); Sodium Level 140 mmol/L (133-145); Total Bilirubin 0.34 mg/dL (0.00-1.30)
== END | disposition home or self-care (01) ==
LOC: LAB 15:05
PROVIDERS: PCP Family Medicine Geriatric Medicine; Referring Provider Family Medicine Geriatric Medicine; Visit Provider Family Medicine Geriatric Medicine
DX: E11.65 Type 2 diabetes mellitus with hyperglycemia (principal); E55.9 Vitamin D deficiency, unspecified; I10 Essential (primary) hypertension
CPT/HCPCS: 36415; 80053; 82306; 84443; 85025

== ENCOUNTER → 2025-06-06 | Outpatient (CLI) | payer MEDICARE, SELFPAY ==
[2025-06-06 15:28] LABS: Hematocrit 44.9 % (40-54); Hemoglobin 14.9 g/dL (13.0-16.5); Immature Granulocytes Count 0.020 X10^3/uL (0.0-0.0); Mean Corp Hgb Conc 33.2 g/dL (32-36); Mean Corpuscular Volume 88.0 fL (80-94); Mean Platelet Vol. 9.8 fl (6.2-12.0); NRBC Flagged by Analyzer 0 % (0-5); Platelet Count 234 K/mm3 (150-450); RBC Distribution Width CV 14.1 % (11.6-14.6); RBC Distribution Width SD 45.9 fl (35.1-43.9); Red Blood Count 5.10 M/mm3 (4.6-6.2); White Blood Count 6.8 K/mm3 (4.4-11.0)
[2025-06-06 17:01] LABS: Vitamin D,25 Hydroxy 18.8 ng/mL (30-100)
[2025-06-06 17:12] LABS: AST(SGOT) 24 U/L (<=37); Alanine Aminotransfer ALT/SGPT 18 U/L (<=46); Albumin, Serum 4.1 g/dL (3.4-4.8); Alkaline Phosphatase 88 U/L (40-129); Anion Gap 11 (5-15); BUN 20 mg/dL (4-19); BUN/Creat Ratio 27.2 RATIO (10-20); Calcium,Total 9.3 mg/dL (7.6-11.0); Carbon Dioxide 25.9 mmol/L (21.0-32.0); Chloride 103 mmol/L (98-108); Globulin 3.7 g/dL (2.2-4.2); Glucose 124 mg/dL (70-99); Potassium 4.6 mmol/L (3.3-5.1)
[2025-06-06 23:08] LABS: Xtra Tube Kwok EXTRA TUBE
== END | disposition home or self-care (01) ==
LOC: POLAB3 15:07
PROVIDERS: PCP Family Medicine Geriatric Medicine; Visit Provider Family Medicine Geriatric Medicine
DX: I10 Essential (primary) hypertension (principal); E03.9 Hypothyroidism, unspecified; E55.9 Vitamin D deficiency, unspecified
CPT/HCPCS: 36415; 80053; 82306; 84443; 85025